=== PATIENT | female | born 1930 | race Caucasian/White ===

== ENCOUNTER 2018-12-07 06:02 | Day surgery (SDC) | payer OTHER ==
[~2018-12-07] VITALS: Ht 157.5 cm; Wt 63.9 kg
[2018-12-07] VITALS (37 sets, daily range): BP systolic 92–169; BP diastolic 53–92; PULSE 96–114; RESP 16–30; Ht 157.5 cm; Wt 63.9 kg
[2018-12-07] MEDS ORDERED: HEPARIN 1000 UNITS/ML 10 ML INJ ONE (06:58)
[2018-12-07] MEDS ORDERED: LIDOCAINE 1% (MDV) 20 ML INJ ONE (06:59)
[2018-12-07] MEDS ORDERED: IODIXANOL LOCM 100 ML BTL ONE (06:59)
[2018-12-07] MEDS ORDERED: MIDAZOLAM 1 MG/ML 2 ML INJ ONE (06:59)
[2018-12-07] MEDS ORDERED: HEPARIN 1000 UNITS/NS (A-LINE) 1,000 ML ONE (06:59)
[2018-12-07] MEDS ORDERED: FENTAnyl 50 MCG/ML VIAL ONE (06:59)
[2018-12-07] MEDS ORDERED: METO-448 PO (07:17)
[2018-12-07] MEDS ORDERED: CLOP75TA19 PO (07:17)
[2018-12-07] MEDS ORDERED: ASPI-817 PO (07:17)
[2018-12-07] MEDS ORDERED: PRAV80TA27 PO (07:17)
[2018-12-07] MEDS ORDERED: ALEN70TA5 PO (07:17)
[2018-12-07] MEDS ORDERED: PRAV20TA63 PO (07:17)
[2018-12-07] MEDS ORDERED: LISI2.5T59 PO (07:17)
[2018-12-07] MEDS ORDERED: ACET500C5 PO (07:17)
[2018-12-07] MEDS ORDERED: PANT40TA3 PO (07:17)
[2018-12-07] MEDS ORDERED: CHOL100062 PO (07:17)
--- NOTE | 2018-12-07 08:16 | SIPON ---
Date/Time of Note Date/Time of Note DATE: 12/07/18 TIME: 08:14 Operative Report Preoperative Diagnosis R foot non healing ulcer Postoperative Diagnosis same Operation/Procedure Performed aortogram, RLE runoff - patent aorta, ~25% R RENETTA stenosis, subtotal occlusion of the R METERS SUPERINTENDENT with patent multiple profunda branches, diffuse SFA narrowing with occlusion in mid thigh, patent but small pop reconstitutes at knee with PADMINI and peroneal runoff, RADAR REPAIRER is occluded and does not reconstitute Surgeon see signature line respiratory assistant none Anesthesia: moderate sedation, other Estimated blood loss: minimal Transfusion Required none Specimen none Grafts/Implants none Complications none REJI AGUSTIN MD December 07, 2018 08:16
--- NOTE | 2018-12-07 08:46 | OPR ---
DATE OF OPERATION: 12/07/2018 PREOPERATIVE DIAGNOSIS: Nonhealing ulcer between the right fourth and fifth toes with pain. POSTOPERATIVE DIAGNOSIS: Nonhealing ulcer between the right fourth and fifth toes with pain. PROCEDURE PERFORMED: Abdominal aortogram with right lower extremity runoff. SURGEON: Reji Allen MD ANESTHESIA: Local anesthesia. ESTIMATED BLOOD LOSS: Minimal. COMPLICATIONS: No intraprocedural complications. INDICATIONS: This is an 88-year-old diabetic, hypertensive woman with a long history of peripheral a rterial disease. She has had a nonhealing ulcer in the right foot between the fourth and fifth toes for the last 6 months or so. I had done an angiogram back about 6 months ago. At that time, her rig ht common femoral artery was completely occluded. I was able to angioplasty and laser through it, bu t on recent duplex it was found to have severe restenosis or subtotal occlusion. The ulcer had been improving, but then it basically stopped and started getting larger and she is having more pain, so I brought her in for an angiogram and possible intervention. PROCEDURE: The patient was brought to the labels molder, placed on the table in supine position. Left gr oin was prepped and draped in the usual sterile fashion. I began by infiltrating over the left commo n femoral artery using 10 mL of 1% Xylocaine. I then used ultrasound to identify the left common fem oral artery. I then entered the artery with a micropuncture needle under ultrasound guidance. An 0. 018 wire was inserted through the needle into the artery and the micropuncture sheath was advanced ov er the wire into the artery. I then advanced an 0.035 Bentson wire through the micropuncture sheath and up into the abdominal aorta, exchanged the micropuncture sheath for a 5-Gibraltarian sheath over the wi re. I then advanced a rim catheter into the infrarenal aorta and did an aortogram and then advanced the catheter up and over the bifurcation using Advantage wire for support. I advanced the catheter i nto the right common femoral artery. runoff down the right lower extremity. FINDINGS OF ANGIOGRAPHY: Infrarenal aorta was patent. The left common external and internal iliac a rteries were patent. The left common femoral, superficial, and profunda femoral arteries were all pa tent in the groin. On the right there is about a 25% stenosis in the proximal to mid right common il iac artery. The right internal iliac artery is occluded. The right external iliac artery was patent . The right common femoral artery is patent and brought in its mid portion, there is a subtotal occl usion just a string of flow through. Distal to that the profunda femoral artery is patent. There se emed to be multiple branches coming off of the profunda, coming off the distal common femoral, the duque perficial femoral artery is patent but severely diseased. It is almost like a string and is diffusel y severely narrowed and occludes in the mid-thigh. There is some reconstitution of the popliteal abo ve the knee. It is also very small and diseased. It crosses the knee and then below the knee there is 2-vessel runoff via anterior tibial and peroneal. Posterior tibial artery is occluded at its orig in. It does not reconstitute. The anterior tibial artery is patent down across the ankle and into t he foot. It is very small and it was diffusely diseased but it does fill the dorsalis pedis which is also a very small and diseased. Peroneal artery occludes at the ankles. In summary, there is severe diffuse disease throughout the right lower extremity with a subtotal occl usion of the right common femoral artery. It has been previously treated with angioplasty and had re stenosed fairly rapidly. I think that the best option at this point would be a common femoral endart erectomy rather than another percutaneous intervention. We will discuss it with her family members. In the meantime, we will continue wound care. She is going to go to the recovery room, having teresa ated the procedure well in stable condition. Dictated By: REJI SADLER/RAFFAELE Conf#: [id number] DID#: [id number] CC: Shea Barry;*EndCC*
[2018-12-07] MEDS ORDERED: SOD CHLORIDE 0.9% 1,000 ML IV SCH (09:30)
== END 2018-12-07 15:55 | disposition home or self-care (01) ==
LOC: SDS 06:02
PROVIDERS: ATTEND Surgery Vascular Surgery
DX: E11.51 Type 2 diabetes mellitus with diabetic peripheral angiopathy without gangrene (principal); I70.235 Atherosclerosis of native arteries of right leg with ulceration of other part of foot; L97.519 Non-pressure chronic ulcer of other part of right foot with unspecified severity; I10 Essential (primary) hypertension
CPT/HCPCS: 36246; 75630; 75710; 80053; 82962; 85025; 85610; 85730; C1769; C1887; C1894; J1644; J2250; J3010; Q9967

== ENCOUNTER 2018-12-31 00:35 | Inpatient (IN) | payer OTHER ==
[~2018-12-31] VITALS: Ht 157.5 cm; Wt 65.6 kg
[2018-12-31] VITALS (10 sets, daily range): BP systolic 105–175; BP diastolic 55–70; PULSE 78–100; RESP 18–20; Ht 157.5 cm; Wt 65.6 kg
[~2018-12-31 00:35] MED LIST: ACET500C5 PO; ALEN70TA5 PO; ASPI-817 PO; CHOL100062 PO; CLOP75TA19 PO; LISI2.5T59 PO; METO-448 PO; PANT40TA3 PO; PRAV20TA63 PO; PRAV80TA27 PO
[2018-12-31] MEDS ORDERED: PRAV20TA PO (05:48)
[2018-12-31] MEDS ORDERED: PANT40TA4 PO (05:48)
[2018-12-31] MEDS ORDERED: CLOP75TA27 PO (05:48)
[2018-12-31] MEDS ORDERED: [UNRECOGNIZED DRUG - OTHER] PO (05:48)
[2018-12-31] MEDS ORDERED: METO25TA4 PO (05:48)
[2018-12-31] MEDS ORDERED: ASPI-817 PO (05:48)
[2018-12-31] MEDS ORDERED: ALEN40TA2 PO (05:48)
[2018-12-31] MEDS ORDERED: SOD CHLORIDE 0.45% 1,000 ML IV SCH (07:12)
[2018-12-31] MEDS ORDERED: morphine 2 MG INJ IV PRN (07:30)
[2018-12-31] MEDS ORDERED: MAGNESIUM HYDROXIDE 30ML CUP PO PRN (07:30)
[2018-12-31] MEDS ORDERED: ACETAMINOPHEN 325 MG TAB PO PRN (07:30)
[2018-12-31] MEDS ORDERED: hydrALAzine 20 MG INJ IV PRN (07:30)
[2018-12-31] MEDS ORDERED: ACETAMINOPHEN 500 MG TAB PO PRN (07:30)
[2018-12-31] MEDS ORDERED: ALBUTEROL/IPRATROPIUM (NEB) 3 ML AMP HHN PRN (07:30)
[2018-12-31] MEDS ORDERED: NITROGLYCERIN (SL) 0.4 MG TAB SL PRN (07:30)
[2018-12-31] MEDS ORDERED: DOCUSATE SODIUM 100 MG CAP PO PRN (07:30)
[2018-12-31] MEDS ORDERED: LORAZEPAM 2 MG INJ IV PRN (07:30)
[2018-12-31] MEDS ORDERED: HYDROCODONE/APAP (5/325) TAB PO PRN (07:30)
[2018-12-31] MEDS ORDERED: NACL 0.9% 3 ML SYG IV SCH (07:30)
[2018-12-31] MEDS ORDERED: ONDANSETRON 4 MG INJ IV PRN (07:30)
[2018-12-31] MEDS: PANTOPRAZOLE (EC) 40 MG TAB PO SCH (08:29)
[2018-12-31] MEDS: CHOLECALCIFEROL 1,000 UNIT TAB PO SCH (08:29)
[2018-12-31] MEDS: METOPROLOL 25 MG TAB PO SCH ×2 (08:30→20:56)
[2018-12-31] MEDS: HEPARIN 5,000 UNIT/1 ML VIAL SC SCH ×2 (08:33→21:02)
[2018-12-31] MEDS ORDERED: VANCOMYCIN IV PER PHARMACY XX SCH (11:00)
[2018-12-31] MEDS ORDERED: VANCOMYCIN HCL 1.25 GM in SOD CHLORIDE 0.9% 250 ML IVPB ONE (12:30)
--- NOTE | 2018-12-31 13:49 | CONS ---
DATE OF ADMISSION: 12/31/2018 DATE OF CONSULTATION: 12/31/2018 TYPE OF CONSULTATION: Vascular. REFERRING PHYSICIAN: Nohemy Jessica MD REASON FOR CONSULTATION: Right foot ulcer. HISTORY OF PRESENT ILLNESS: This is an 88-year-old woman. She is well known to me. She has a long history of peripheral arterial disease. She is diabetic, hypertensive. She is obese. She has had a n ulcer between the right 4th and 5th toes. It started probably about 6 or 8 months ago. I did an a ngiogram at that time and I had initially seen her over [facility]. I did the angiogram and opened her right common femoral artery, which had been chronically occluded. The ulcer is getting b cristiano and actually pain went away and it almost closed. Then about 2 months ago, it started getting worse. We did an ultrasound that showed that the common femoral artery has re-stenosed. They luis e t her here to [facility]. A few weeks ago I did an angiogram and it showed that there was s ubtotal occlusion again of the right common femoral artery. I thought it would be better treated lui gically given that I treated it previously and it re-stenosed very quickly, so I was in the process o f scheduling her for right common femoral endarterectomy. She was having a lot of pain in the foot a nd it was more swollen and red. She went to [facility] yesterday. She was admitted t here and then transferred here to [facility] because of insurance reasons. She now has no p ain. The edema is gone. The ulcer is still there but there is no erythema. She certainly is really having any symptoms currently here. PAST MEDICAL HISTORY: Significant for diabetes, hypertension, atrial fibrillation, peripheral arteri al disease. She has a right foot ulcer and right common femoral artery subtotal occlusion. MEDICATIONS: Consist of: 1. Aspirin. 2. Plavix. 3. Zestril. 4. Protonix. 5. Lopressor. 6. Vancomycin. 7. Subcutaneous heparin. 8. Vitamin D. 9. Zofran. 10. Tylenol. 11. Morphine. 12. Ativan. 13. DuoNeb. 14. Hydralazine. 15. Nitroglycerin. 16. Milk of Magnesia. ALLERGIES: SHE HAS NO KNOWN DRUG ALLERGIES. SOCIAL HISTORY: She is a nonsmoker. She does not drink or use any illicit drugs. She lives with [facility] family. She is not in a detention facility. FAMILY HISTORY: Significant for diabetes. REVIEW OF SYSTEMS: She currently denies any pain. She has no chest pain or shortness of breath. No nausea, vomiting, diarrhea. No fever, no chills, no recent weight gain or weight loss. No pain in the foot at present. The edema and redness have gone down since. She was given some antibiotics at [place] and worthy antibiotics here. PHYSICAL EXAMINATION GENERAL: She is an elderly woman. She is moderately obese. VITAL SIGNS: She has been afebrile. Blood pressure is 126/64, heart rate 78, respiratory rate is 20 . She is 97% sat on room air. PERIPHERAL VASCULAR: She has 2+ radial, brachial, carotid pulses bilaterally. LUNGS: Clear. HEART: Regular rate and rhythm. ABDOMEN: Obese, soft, nontender. EXTREMITIES: She has 2+ femoral on the left. No femoral pulse on the right. There is no popliteal, DP or PT pulse in either foot and there is no edema in either leg. The right foot is a little s potato chip cooker machine ler than the left and has a little bit of cyanosis but this is chronic. It has been like this as shaji g as I have been seeing her. There is no erythema. She has got some chronic venous stasis changes. There is an ulcer between the 4th and 5th toes right in the web space. It goes fairly deep. There is no pus. I do not see any purulence. There is no erythema around it. It is not even particularly tender at present. LABORATORY VALUES: All basically normal. She got normal white count. DIAGNOSTIC DATA: She has not had any ultrasound of the lower extremities yet. IMPRESSION: Right foot ulcer between 4th and 5th toes. She has chronic ulcer that has been there fo r 6 or 8 months. She has severe peripheral arterial disease. I was in the process of scheduling her for right femoral endarterectomy as an outpatient after an angiogram done last month. It looks like she gets cellulitis around the ulcer and it is already significantly improved just with some brief d oses of antibiotics. She is going to need a femoral endarterectomy, so I think it is a good idea to get a assembler small products to see her for clearance. While she is here, Dr. Rosa is going to ask Dr. Roberta doherty to see her as well for podiatric care and wound care. I will see if I can get her scheduled for the surgery but probably would not be this week. I am completely booked up this week, so I think may be we will try and get her on the schedule for next week. She probably can go home in a day or 2 wit h some p.o. antibiotics to home over until we get her back for the surgery once it is schedule. Dictated By: REJI SADLER/RAFFAELE Conf#: [id number] DID#: [id number] CC: VICTORIANO SHARPE DO; NOHEMY JESSICA; JOSE ROSA MD; ELIESER TAMAYO DPM;*End*
[2018-12-31] MEDS: COLLAGENASE 5 GM (UD JAR) TOP SCH (19:54)
[2018-12-31] MEDS ORDERED: METOPROLOL 25 MG TAB PO SCH (21:00)
[2018-12-31] MEDS: ATORVASTATIN 40 MG TAB PO SCH (21:10)
[2019-01-01] VITALS (12 sets, daily range): BP systolic 86–157; BP diastolic 50–68; PULSE 69–92; RESP 18–20
[2019-01-01] MEDS ORDERED: CIPROFLOXACIN 500 MG TAB PO SCH (07:00)
--- NOTE | 2019-01-01 08:17 | CONS ---
DATE OF ADMISSION: 12/31/2018 DATE OF CONSULTATION: 12/31/2018 REASON FOR CONSULTATION: Osteomyelitis, right foot. HISTORY OF PRESENT ILLNESS: This is an 88-year-old female with chronic ulceration known to have sergio pheral arterial disease with prior intervention. The patient is currently being scheduled for a femo ral endarterectomy. The patient currently has a deep ulceration, has had MRI revealing bone marrow e messi in the fourth proximal phalanx, concerning for early osteomyelitis, moderate to advanced polyart icular arthrosis involving the tarsometatarsal joints and the first MPJ with hallux valgus deformity. PAST MEDICAL HISTORY: Diabetes type 2, hypertension, atrial fibrillation, peripheral arterial diseas e, right lower extremity diabetic foot ulceration, history of right common femoral subtotal occlusio n. MEDICATIONS: Include Vancomycin. ALLERGIES: NONE. SOCIAL HISTORY: Denies smoking, recreational drugs. Currently lives with family. FAMILY HISTORY: Positive for diabetes. REVIEW OF SYSTEMS: Occasional pain to right foot. PHYSICAL EXAMINATION: VITAL SIGNS: Temperature 97.9, pulse is 81, respiratory rate 18, blood pressure 123/58, pulse oximet ry is 95%. GENERAL: The patient awake, pleasant mood. Regular respiration. EXTREMITIES: The patient with brawny appearing skin. Pedal pulses are nonpalpable. There is ulcera tion at the lateral aspect of the fourth toe base with lesion that appears punched out and probes sruthi n to tendon. No erythema. No instability of the toe noted. The leg is warm, but palpable popliteal pulse is nonpalpable with a 2+ femoral pulse on the left, nonpalpable on the right. LABORATORIES: PT is 12.6, INR 0.93, PTT 27.9. Foot MRI reviewed, suspicious of early osteomyelitis to the proximal phalanx of the fourth toe. Arterial ultrasound is pending. ASSESSMENT: 1. Right foot diabetic foot ulceration with a concern for early osteomyelitis. 2. Peripheral arterial disease with subtotal occlusion of the right common femoral artery. 3. Cellulitis. PLAN: Obtain wound cultures, initiate on empiric antibiotics, will add Zosyn to current vancomycin. The patient would benefit from local wound care until revascularization. The patient is currently b eing scheduled for a femoral endarterectomy and to be scheduled pending OR availability, reviewed lab s and MRI. Discussed at length with patient and risk of chronic ulceration, will plan more aggressiv e wound care and debridements once revascularized. The patient has pending arterial ultrasounds. Nu rsing recommendations given. Recommend decubitus precautions. The patient at high risk given limite d mobility, also check nutritional status and recommend optimization of any deficiencies and tight gl ycemic control while in-house. Dictated By: ELIESER TEJADA/RAFFAELE Conf#: [id number] DID#: [id number] CC: NOHEMY JESSICA;*EndCC*
--- NOTE | 2019-01-01 08:30 | HP ---
Date/Time of Note Date/Time of Note DATE: 12/31/18 TIME: 08:29 Assessment/Plan VTE Prophylaxis Risk score (from Ns)>0 risk: 3 SCD applied (from Ns): Yes Pharmacological prophylaxis: heparin Lines/Catheters IV [facility] Type [facility] Peripheral IV Urinary Cath still in place: No Assessment/Plan Hospital Course Appears well no distress AOx3 RRR CTAB R foot with ulceration between 4-5th toes. Mild surroudnign erythema. No drainage. Very weak pulses A/P: 88 yo female with PAD presents with nonhealing ulceration of foot - Wound care - Dr Arriaza from podiatry consulted - MRI to confimr dx of osteomyelitis - IV abx for now PAD: - Surgical managmeent per Dr Allen - Continue DAPT and statin - BP control Result Diagram: 01/01/1928 01/01/19 0628 Results 24hrs Laboratory Tests Test 01/01/19 06:23 01/01/19 06:28 Albumin 3.4 Prealbumin 12.6 L White Blood Count 6.4 Red Blood Count 3.43 L Hemoglobin 9.6 L Hematocrit 31.5 L Mean Corpuscular Volume 91.8 Mean Corpuscular Hemoglobin 28.0 L Mean Corpuscular Hemoglobin Concent 30.5 L Red Cell Distribution Width 14.0 Platelet Count 240 Mean Platelet Volume 9.6 Immature Granulocytes % 0.200 Neutrophils % 53.9 Lymphocytes % 28.9 Monocytes % 11.5 H Eosinophils % 4.7 Basophils % 0.8 Nucleated Red Blood Cells % 0.0 Immature Granulocytes # 0.010 Neutrophils # 3.5 Lymphocytes # 1.9 Monocytes # 0.7 Eosinophils # 0.3 Basophils # 0.1 Nucleated Red Blood Cells # 0.0 Sodium Level 140 Potassium Level 5.5 H Chloride Level 109 Carbon Dioxide Level 26 Anion Gap 5 Blood Urea Nitrogen 31 H Creatinine 1.61 H Est Glomerular Filtrat Rate mL/min Glucose Level 107 Hemoglobin A1c 6.6 H Calcium Level 8.4 Phosphorus Level 4.3 Magnesium Level 1.8 Triglycerides Level 90 Cholesterol Level 119 LDL Cholesterol, Calculated 60 HDL Cholesterol 41 Cholesterol/HDL Ratio 2.9 Thyroid Stimulating Hormone (TSH) 0.493 HPI/ROS Admit Date/Time Admit Date/Time Dec 31, 2018 at 00:35 Hx of Present Illness RE-ENTERING THIS NOTE I ENTERED IT IN PREVIOUS PATIENT ENCOUNTER 88 yo female with severe PAD, recent angiogram showing subtotal occlusion of the right common femoral artery. It had been previously treated with angioplasty and had restenosed fairly rapidly. Common femoral endarterectomy had been planned as an outpatient by Dr Allen Came to ED because ulceration of R foot and pain has gotten worse XR suggested osteomyelitis at outside hospital No systemic symptoms ROS Constitutional: no complaints, improved Eyes: no complaints ENT: no complaints Respiratory: no complaints Cardiovascular: no complaints Gastrointestinal: no complaints Genitourinary: no complaints Musculoskeletal: no complaints Skin: no complaints Neurologic: no complaints Endocrine: no complaints Lymphatic: no complaints Psychological: no complaints, nl mood/affect Immunologic: no complaints PMH/Family/Social Past Medical History Medical History: diabetes Medications Current Medications IV Flush (NS 3 ml) 3 ml PER PROTOCOL IV ; Start 12/31/18 at 07:30 Ondansetron HCl (Zofran Inj) 4 mg Q6H PRN IV NAUSEA/VOMITING; Start 12/31/18 at 07:30 Acetaminophen (Tylenol Tab) 650 mg Q6H PRN PO .PAIN 1-3 OR TEMP; Start 12/31/18 at 07:30 Acetaminophen/ Hydrocodone Bitart ([place] (5/325)) 1 tab Q6H PRN PO .MOD PAIN 4- 6; Start 12/31/18 at 07:30 Morphine Sulfate (morphine) 2 mg Q4H PRN IV .SEVERE PAIN 7-10 Last administered on 12/31/18at 21:02; Admin Dose 2 MG; Start 12/31/18 at 07:30 Docusate Sodium (Colace) 100 mg Q12H PRN PO .CONSTIPATION; Start 12/31/18 at 07:30 Magnesium Hydroxide (Milk Of Mag) 30 ml DAILY PRN PO .CONSTIPATION; Start 12/31/18 at 07:30 Heparin Sodium (Porcine) (Heparin (5000 Units/1ml)) 5,000 unit Q12 SC Last administered on 12/31/18at 21:02; Admin Dose 5,000 UNIT; Start 12/31/18 at 09:00 Lorazepam (Ativan) 0.5 mg Q6H PRN IV ANXIETY; Start 12/31/18 at 07:30 Albuterol/ Ipratropium (Duoneb) 3 ml Q4H RESP THERAPY PRN HHN SHORTNESS OF BREATH; Start 12/31/18 at 07:30 Hydralazine HCl (Apresoline) 10 mg Q6H PRN IV ELEVATED BLOOD PRESSURE; Start 12/31/18 at 07:30 Nitroglycerin (Nitroglycerin (Sl Tab) 0.4 Mg) 1 tab Q5M PRN SL ANGINA; Start 12/31/18 at 07:30 Cholecalciferol (Vitamin D) 1,000 unit DAILY PO Last administered on 12/31/18at 08:29; Admin Dose 1,000 UNIT; Start 12/31/18 at 09:00 Metoprolol Tartrate (Lopressor) 25 mg BID PO Last administered on 12/31/18at 20:56; Admin Dose 25 MG; Start 12/31/18 at 09:00 Pantoprazole (Protonix Tab) 40 mg DAILY PO Last administered on 12/31/18at 08:29 ; Admin Dose 40 MG; Start 12/31/18 at 09:00 Vancomycin HCl (Vanco Iv Per Pharmacy) VANCOMYCIN PER PHARMACY PER PROTOCOL XX ; Start 12/31/18 at 11:00 Aspirin (Halfprin) 81 mg DAILY PO ; Start 01/01/19 at 09:00 Clopidogrel Bisulfate (plaVIX) 75 mg DAILY PO ; Start 01/01/19 at 09:00 Lisinopril (Zestril) 2.5 mg DAILY PO ; Start 01/01/19 at 09:00 Atorvastatin Calcium (Lipitor) 40 mg DAILY@21 PO Last administered on 12/31/18at 21:10; Admin Dose 40 MG; Start 12/31/18 at 21:00 Vancomycin HCl 250 ml @ 125 mls/hr Q48H IVPB ; Start 01/02/19 at 13:30 Collagenase (Santyl) 1 applic DAILY TOP Last administered on 12/31/18at 19:54; Admin Dose 1 APPLIC; Start 12/31/18 at 19:30 Ciprofloxacin (Cipro) 250 mg BID@06,18 PO ; Start 01/01/19 at 18:00 Coded Allergies: Penicillins (Verified Allergy, Unknown, rash, 12/06/18) Past Surgical History Past Surgical Hx: no surgical history Family History Significant Family History: no pertinent family hx Social History Alcohol Use: none Smoking Status: Never smoker Drug Use: none Exam/Review of Systems Vital Signs Vitals Vital Signs Date Temp Pulse Resp B/P (MAP) Pulse Ox O2 O2 Flow FiO2 Time Delivery Rate 01/01/19 82 08:28 01/01/19 98.2 20 104/52 98 Nasal 07:45 (69) Cannula 01/01/19 21 01:05 Intake and Output 12/31/18 12/31/18 01/01/19 1515:00 23:00 07:00 IntakeIntake Total 300 ml 300 ml BalanceBalance 300 ml 300 ml Exam Constitutional: alert, oriented, well developed Psych: no complaints, nl mood/affect Head: normocephalic, atraumatic Eyes: nl conjunctiva, EOMI, nl lids, nl sclera, PERRL ENMT: nl external ears & nose, nl lips & teeth, nl nasal mucosa & septum Neck: supple, non-tender Respiratory: clear to auscultation, normal air movement Cardiovascular: regular rate and rhythm, nl pulses Gastrointestinal: soft, nl liver, spleen, non-tender Musculoskeletal: nl extremities to inspection Extremities: normal pulses Neurological: MEDICAL RADIATION TECH II-XII intact, nl mental status, nl speech, nl strength Skin: nl turgor; No rash or lesions Lymph: nl lymph nodes JOSE CHI MD Jan 01, 2019 08:30
[2019-01-01] MEDS: PANTOPRAZOLE (EC) 40 MG TAB PO SCH (08:58)
[2019-01-01] MEDS: CHOLECALCIFEROL 1,000 UNIT TAB PO SCH (08:58)
[2019-01-01] MEDS: CLOPIDOGREL 75 MG TAB PO SCH (08:58)
[2019-01-01] MEDS: ASPIRIN (EC) 81 MG TAB PO SCH (08:58)
[2019-01-01] MEDS: LISINOPRIL 5 MG TAB PO SCH (08:59)
[2019-01-01] MEDS: METOPROLOL 25 MG TAB PO SCH ×2 (08:59→20:40)
[2019-01-01] MEDS: COLLAGENASE 5 GM (UD JAR) TOP SCH (08:59)
[2019-01-01] MEDS ORDERED: PANTOPRAZOLE (EC) 40 MG TAB PO SCH (09:00)
[2019-01-01] MEDS ORDERED: CLOPIDOGREL 75 MG TAB PO SCH (09:00)
[2019-01-01] MEDS ORDERED: ASPIRIN (EC) 81 MG TAB PO SCH (09:00)
[2019-01-01] MEDS: HEPARIN 5,000 UNIT/1 ML VIAL SC SCH ×2 (09:12→21:16)
--- NOTE | 2019-01-01 12:22 | PN ---
Date/Time of Note Date/Time of Note DATE: 01/01/19 TIME: 12:21 Assessment/Plan VTE Prophylaxis Risk score (from Ns)>0 risk: 4 SCD applied (from Ns): Yes Pharmacological prophylaxis: heparin Lines/Catheters IV Catheter Type (from Nrsg): Peripheral IV Urinary Cath still in place: No Assessment/Plan Hospital Course Appears well no distress AOx3 RRR CTAB R foot with ulceration between 4-5th toes. Mild surroudnign erythema. No drainage. Very weak pulses A/P: 88 yo female with PAD, CKD presents with nonhealing ulceration of foot - Wound care - Dr Arriaza from podiatry consulted - MRI to confimr dx of osteomyelitis - IV abx for now PAD: - Surgical managmeent per Dr Allen - Continue DAPT and statin - BP control CKD III: - stable Home tomorrow and follow up in clinic for femoral endarterectomy Result Diagram: 01/01/1928 01/01/1928 Results 24hrs Laboratory Tests Test 01/01/19 06:23 01/01/19 06:28 Albumin 3.4 Prealbumin 12.6 L White Blood Count 6.4 Red Blood Count 3.43 L Hemoglobin 9.6 L Hematocrit 31.5 L Mean Corpuscular Volume 91.8 Mean Corpuscular Hemoglobin 28.0 L Mean Corpuscular Hemoglobin Concent 30.5 L Red Cell Distribution Width 14.0 Platelet Count 240 Mean Platelet Volume 9.6 Immature Granulocytes % 0.200 Neutrophils % 53.9 Lymphocytes % 28.9 Monocytes % 11.5 H Eosinophils % 4.7 Basophils % 0.8 Nucleated Red Blood Cells % 0.0 Immature Granulocytes # 0.010 Neutrophils # 3.5 Lymphocytes # 1.9 Monocytes # 0.7 Eosinophils # 0.3 Basophils # 0.1 Nucleated Red Blood Cells # 0.0 Sodium Level 140 Potassium Level 5.5 H Chloride Level 109 Carbon Dioxide Level 26 Anion Gap 5 Blood Urea Nitrogen 31 H Creatinine 1.61 H Est Glomerular Filtrat Rate mL/min Glucose Level 107 Hemoglobin A1c 6.6 H Calcium Level 8.4 Phosphorus Level 4.3 Magnesium Level 1.8 Triglycerides Level 90 Cholesterol Level 119 LDL Cholesterol, Calculated 60 HDL Cholesterol 41 Cholesterol/HDL Ratio 2.9 Thyroid Stimulating Hormone (TSH) 0.493 Subjective 24 Hr Interval Summary Free Text/Dictation Patinet comfortable MRI suggests osteomyelitis Exam/Review of Systems Exam Vitals Vital Signs Date Temp Pulse Resp B/P (MAP) Pulse Ox O2 O2 Flow FiO2 Time Delivery Rate 01/01/19 98.5 85 18 107/51 96 Nasal 11:19 (69) Cannula 01/01/19 21 01:05 Intake and Output 12/31/18 12/31/18 01/01/19 1515:00 23:00 07:00 IntakeIntake Total 300 ml 300 ml BalanceBalance 300 ml 300 ml Constitutional: alert, oriented, well developed Psych: no complaints, nl mood/affect Head: normocephalic, atraumatic Eyes: nl conjunctiva, EOMI, nl lids, nl sclera, PERRL ENMT: nl external ears & nose, nl lips & teeth, nl nasal mucosa & septum Neck: supple, non-tender Respiratory: clear to auscultation, normal air movement Cardiovascular: regular rate and rhythm, nl pulses Gastrointestinal: soft, nl liver, spleen, non-tender Musculoskeletal: nl extremities to inspection, nl gait and stance Extremities: normal pulses 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, nl mental status, nl speech, nl strength Skin: nl turgor; No rash or lesions Lymph: nl lymph nodes Results Results 24hrs Laboratory Tests Test 01/01/19 06:23 01/01/19 06:28 Albumin 3.4 Prealbumin 12.6 L White Blood Count 6.4 Red Blood Count 3.43 L Hemoglobin 9.6 L Hematocrit 31.5 L Mean Corpuscular Volume 91.8 Mean Corpuscular Hemoglobin 28.0 L Mean Corpuscular Hemoglobin Concent 30.5 L Red Cell Distribution Width 14.0 Platelet Count 240 Mean Platelet Volume 9.6 Immature Granulocytes % 0.200 Neutrophils % 53.9 Lymphocytes % 28.9 Monocytes % 11.5 H Eosinophils % 4.7 Basophils % 0.8 Nucleated Red Blood Cells % 0.0 Immature Granulocytes # 0.010 Neutrophils # 3.5 Lymphocytes # 1.9 Monocytes # 0.7 Eosinophils # 0.3 Basophils # 0.1 Nucleated Red Blood Cells # 0.0 Sodium Level 140 Potassium Level 5.5 H Chloride Level 109 Carbon Dioxide Level 26 Anion Gap 5 Blood Urea Nitrogen 31 H Creatinine 1.61 H Est Glomerular Filtrat Rate mL/min Glucose Level 107 Hemoglobin A1c 6.6 H Calcium Level 8.4 Phosphorus Level 4.3 Magnesium Level 1.8 Triglycerides Level 90 Cholesterol Level 119 LDL Cholesterol, Calculated 60 HDL Cholesterol 41 Cholesterol/HDL Ratio 2.9 Thyroid Stimulating Hormone (TSH) 0.493 Medications Medication Current Medications IV Flush (NS 3 ml) 3 ml PER PROTOCOL IV ; Start 12/31/18 at 07:30 Ondansetron HCl (Zofran Inj) 4 mg Q6H PRN IV NAUSEA/VOMITING; Start 12/31/18 at 07:30 Acetaminophen (Tylenol Tab) 650 mg Q6H PRN PO .PAIN 1-3 OR TEMP; Start 12/31/18 at 07:30 Acetaminophen/ Hydrocodone Bitart ([place] (5/325)) 1 tab Q6H PRN PO .MOD PAIN 4- 6; Start 12/31/18 at 07:30 Morphine Sulfate (morphine) 2 mg Q4H PRN IV .SEVERE PAIN 7-10 Last administered on 12/31/18at 21:02; Admin Dose 2 MG; Start 12/31/18 at 07:30 Docusate Sodium (Colace) 100 mg Q12H PRN PO .CONSTIPATION; Start 12/31/18 at 07:30 Magnesium Hydroxide (Milk Of Mag) 30 ml DAILY PRN PO .CONSTIPATION; Start 12/22 at 07:30 Heparin Sodium (Porcine) (Heparin (5000 Units/1ml)) 5,000 unit Q12 SC Last administered on 01/01/19at 09:12; Admin Dose 5,000 UNIT; Start 12/31/18 at 09:00 Lorazepam (Ativan) 0.5 mg Q6H PRN IV ANXIETY; Start 12/31/18 at 07:30 Albuterol/ Ipratropium (Duoneb) 3 ml Q4H RESP THERAPY PRN HHN SHORTNESS OF BREATH; Start 12/31/18 at 07:30 Hydralazine HCl (Apresoline) 10 mg Q6H PRN IV ELEVATED BLOOD PRESSURE; Start 12/31/18 at 07:30 Nitroglycerin (Nitroglycerin (Sl Tab) 0.4 Mg) 1 tab Q5M PRN SL ANGINA; Start 12/31/18 at 07:30 Cholecalciferol (Vitamin D) 1,000 unit DAILY PO Last administered on 01/01/19at 08:58; Admin Dose 1,000 UNIT; Start 12/31/18 at 09:00 Metoprolol Tartrate (Lopressor) 25 mg BID PO Last administered on 01/01/19 08:59; Admin Dose 25 MG; Start 12/31/18 at 09:00 Pantoprazole (Protonix Tab) 40 mg DAILY PO Last administered on 01/01/19 08:58; Admin Dose 40 MG; Start 12/31/18 at 09:00 Vancomycin HCl (Vanco Iv Per Pharmacy) VANCOMYCIN PER PHARMACY PER PROTOCOL XX ; Start 12/31/18 at 11:00 Aspirin (Halfprin) 81 mg DAILY PO Last administered on 01/01/19 08:58; Admin Dose 81 MG; Start 01/01/19 at 09:00 Clopidogrel Bisulfate (plaVIX) 75 mg DAILY PO Last administered on 01/01/19 08:58; Admin Dose 75 MG; Start 01/01/19 at 09:00 Lisinopril (Zestril) 2.5 mg DAILY PO Last administered on 01/01/19 08:59; Admin Dose 2.5 MG; Start 01/01/19 at 09:00 Atorvastatin Calcium (Lipitor) 40 mg DAILY@21 PO Last administered on 12/31/18at 21:10; Admin Dose 40 MG; Start 12/31/18 at 21:00 Vancomycin HCl 250 ml @ 125 mls/hr Q48H IVPB ; Start 01/02/19 at 13:30 Collagenase (Santyl) 1 applic DAILY TOP Last administered on 01/01/19 08:59; Admin Dose 1 APPLIC; Start 12/31/18 at 19:30 Ciprofloxacin (Cipro) 250 mg BID@06,18 PO ; Start 01/01/19 at 18:00 Sodium Hypochlorite (Dakins Diluted (1/40)) 1 applic BID TP ; Start 01/01/19 at 12:00 JOSE CHI MD Jan 01, 2019 12:22
[2019-01-01] MEDS: DAKINS 0.0125%(1/40) 473 ML SOLUTION TP SCH ×2 (15:57→20:40)
[2019-01-01] MEDS: CIPROFLOXACIN 250 MG TAB PO SCH (17:38)
[2019-01-01] MEDS: ATORVASTATIN 40 MG TAB PO SCH (20:40)
[2019-01-01] MEDS ORDERED: ALBUTEROL 0.083% (NEB) 2.5 MG/3 ML AMP HHN STA (21:25)
[2019-01-01] MEDS ORDERED: SODIUM POLYSTYRENE 15 GM KIT (POWDER + SORBITOL) PO SCH (22:00)
[2019-01-02] VITALS: BP 145/56; PULSE 89; RESP 18
[2019-01-02 00:59] VITALS: PULSE 73
[2019-01-02 04:00] VITALS: BP 113/59; PULSE 78; RESP 18
[2019-01-02] MEDS: CIPROFLOXACIN 250 MG TAB PO SCH (06:09)
[2019-01-02 08:23] VITALS: BP 146/62; PULSE 90; RESP 18
[2019-01-02] MEDS: METOPROLOL 25 MG TAB PO SCH (08:58)
[2019-01-02] MEDS: ASPIRIN (EC) 81 MG TAB PO SCH (08:58)
[2019-01-02] MEDS: CLOPIDOGREL 75 MG TAB PO SCH (08:59)
[2019-01-02] MEDS: LISINOPRIL 5 MG TAB PO SCH (08:59)
[2019-01-02] MEDS: CHOLECALCIFEROL 1,000 UNIT TAB PO SCH (08:59)
[2019-01-02] MEDS: PANTOPRAZOLE (EC) 40 MG TAB PO SCH (08:59)
[2019-01-02] MEDS: DAKINS 0.0125%(1/40) 473 ML SOLUTION TP SCH ×2 (09:00→21:35)
[2019-01-02] MEDS: COLLAGENASE 5 GM (UD JAR) TOP SCH (09:00)
[2019-01-02] MEDS: HEPARIN 5,000 UNIT/1 ML VIAL SC SCH ×2 (09:05→21:32)
[2019-01-02] MEDS ORDERED: GLUCOSE GEL 15 GRAM TUBE PO PRN ×2 (11:00)
[2019-01-02] MEDS ORDERED: GLUCOSE GEL 15 GRAM TUBE BUCCAL PRN (11:00)
[2019-01-02] MEDS ORDERED: GLUCAGON 1 MG INJ IM PRN (11:00)
[2019-01-02] MEDS ORDERED: DEXTROSE 50% 50 ML SYRINGE IV PRN ×2 (11:00)
--- NOTE | 2019-01-02 11:36 | PN ---
Date/Time of Note Date/Time of Note DATE: 01/02/19 TIME: 10:16 Assessment/Plan VTE Prophylaxis Risk score (from Nsg)>0 risk: 3 SCD applied (from Nsg): Yes Pharmacological prophylaxis: heparin Lines/Catheters IV Catheter Type (from Nrsg): Saline Lock Urinary Cath still in place: No Assessment/Plan Hospital Course S: elderly female, no new issues O: Constitutional: alert, elderly Head: atraumatic, normocephalic Neck: non-tender, supple Respiratory: clear to auscultation Cardiovascular: irregularly irregular, systolic M ? 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 It had been previously treated with angioplasty and had restenosed fairly rapidly. Common femoral endarterectomy had been planned as an outpatient by Dr Allen Came to ED because ulceration of R foot and pain has gotten worse R foot DM ulcer with MRI concern for Osteo and surrounding cellulitis -Right foot ulcer between 4th and 5th toes. She has chronic ulcer that has been there for 6 or 8 months -wound cultures still pending -continues on vanco / zosyn / oral cipro -ID consult ? PAD s/p failed angiogram last month -needs femoral endarterectomy, possibly next week but can be scheduled o/p -vascular recommending cardio clearance -dual antiplatelet and statin Hyperkalemia : resolved CKD: stable DM2: a1C 6.6 HTN: titrate meds for optimal control DISPO: Awaiting wound cxs for final abx rec and the plan to dc for o/p f/u with Dr. Allen. Patient has been discharged from PT, cardio consult for clearance, supportive care. Result Diagram: 01/02/19 0810 01/02/19 0809 Results 24hrs Laboratory Tests Test 01/01/19 20:24 01/02/19 08:09 01/02/19 08:10 Sodium Level 137 140 Potassium Level 5.5 H 4.5 Chloride Level 107 108 Carbon Dioxide Level 22 24 Anion Gap 8 8 Blood Urea Nitrogen 39 H 31 H Creatinine 1.66 H 1.66 H Est Glomerular Filtrat Rate mL/min Glucose Level 233 #H 92 # Calcium Level 8.6 8.8 White Blood Count 7.2 Red Blood Count 3.49 L Hemoglobin 9.7 L Hematocrit 31.9 L Mean Corpuscular Volume 91.4 Mean Corpuscular Hemoglobin 27.8 L Mean Corpuscular Hemoglobin Concent 30.4 L Red Cell Distribution Width 13.9 Platelet Count 243 Mean Platelet Volume 9.8 Immature Granulocytes % 0.300 Neutrophils % 55.0 Lymphocytes % 28.7 Monocytes % 11.3 H Eosinophils % 4.0 Basophils % 0.7 Nucleated Red Blood Cells % 0.0 Immature Granulocytes # 0.020 Neutrophils # 4.0 Lymphocytes # 2.1 Monocytes # 0.8 Eosinophils # 0.3 Basophils # 0.1 Nucleated Red Blood Cells # 0.0 Exam/Review of Systems Exam Vitals Vital Signs Date Temp Pulse Resp B/P (MAP) Pulse Ox O2 O2 Flow FiO2 Time Delivery Rate 01/02/19 98.3 90 18 146/62 100 08:23 (90) 01/01/19 21 22:08 01/01/19 Nasal 11:19 Cannula Intake and Output 01/01/19 01/01/19 01/02/19 1515:00 23:00 07:00 IntakeIntake Total 250 ml 400 ml BalanceBalance 250 ml 400 ml Results Results 24hrs Laboratory Tests Test 01/01/19 20:24 01/02/19 08:09 01/02/19 08:10 Sodium Level 137 140 Potassium Level 5.5 H 4.5 Chloride Level 107 108 Carbon Dioxide Level 22 24 Anion Gap 8 8 Blood Urea Nitrogen 39 H 31 H Creatinine 1.66 H 1.66 H Est Glomerular Filtrat Rate mL/min Glucose Level 233 #H 92 # Calcium Level 8.6 8.8 White Blood Count 7.2 Red Blood Count 3.49 L Hemoglobin 9.7 L Hematocrit 31.9 L Mean Corpuscular Volume 91.4 Mean Corpuscular Hemoglobin 27.8 L Mean Corpuscular Hemoglobin Concent 30.4 L Red Cell Distribution Width 13.9 Platelet Count 243 Mean Platelet Volume 9.8 Immature Granulocytes % 0.300 Neutrophils % 55.0 Lymphocytes % 28.7 Monocytes % 11.3 H Eosinophils % 4.0 Basophils % 0.7 Nucleated Red Blood Cells % 0.0 Immature Granulocytes # 0.020 Neutrophils # 4.0 Lymphocytes # 2.1 Monocytes # 0.8 Eosinophils # 0.3 Basophils # 0.1 Nucleated Red Blood Cells # 0.0 Medications Medication Current Medications IV Flush (NS 3 ml) 3 ml PER PROTOCOL IV ; Start 12/31/18 at 07:30 Ondansetron HCl (Zofran Inj) 4 mg Q6H PRN IV NAUSEA/VOMITING; Start 12/31/18 at 07:30 Acetaminophen (Tylenol Tab) 650 mg Q6H PRN PO .PAIN 1-3 OR TEMP; Start 12/31/18 at 07:30 Acetaminophen/ Hydrocodone Bitart ([place] (5/325)) 1 tab Q6H PRN PO .MOD PAIN 4- 6; Start 12/31/18 at 07:30 Morphine Sulfate (morphine) 2 mg Q4H PRN IV .SEVERE PAIN 7-10 Last administered on 12/31/18at 21:02; Admin Dose 2 MG; Start 12/31/18 at 07:30 Docusate Sodium (Colace) 100 mg Q12H PRN PO .CONSTIPATION; Start 12/31/18 at 07:30 Magnesium Hydroxide (Milk Of Mag) 30 ml DAILY PRN PO .CONSTIPATION; Start 12/31/18 at 07:30 Heparin Sodium (Porcine) (Heparin (5000 Units/1ml)) 5,000 unit Q12 SC Last administered on 01/02/19at 09:05; Admin Dose 5,000 UNIT; Start 12/31/18 at 09:00 Lorazepam (Ativan) 0.5 mg Q6H PRN IV ANXIETY; Start 12/31/18 at 07:30 Albuterol/ Ipratropium (Duoneb) 3 ml Q4H RESP THERAPY PRN HHN SHORTNESS OF BREATH; Start 12/31/18 at 07:30 Hydralazine HCl (Apresoline) 10 mg Q6H PRN IV ELEVATED BLOOD PRESSURE; Start 12/31/18 at 07:30 Nitroglycerin (Nitroglycerin (Sl Tab) 0.4 Mg) 1 tab Q5M PRN SL ANGINA; Start 12/31/18 at 07:30 Cholecalciferol (Vitamin D) 1,000 unit DAILY PO Last administered on 01/02/19at 08:59; Admin Dose 1,000 UNIT; Start 12/31/18 at 09:00 Metoprolol Tartrate (Lopressor) 25 mg BID PO Last administered on 01/02/19at 08:58; Admin Dose 25 MG; Start 12/31/18 at 09:00 Pantoprazole (Protonix Tab) 40 mg DAILY PO Last administered on 01/02/19 08:59; Admin Dose 40 MG; Start 12/31/18 at 09:00 Vancomycin HCl (Vanco Iv Per Pharmacy) VANCOMYCIN PER PHARMACY PER PROTOCOL XX ; Start 12/31/18 at 11:00 Aspirin (Halfprin) 81 mg DAILY PO Last administered on 01/02/19 08:58; Admin Dose 81 MG; Start 01/01/19 at 09:00 Clopidogrel Bisulfate (plaVIX) 75 mg DAILY PO Last administered on 01/02/19 08:59; Admin Dose 75 MG; Start 01/01/19 at 09:00 Lisinopril (Zestril) 2.5 mg DAILY PO Last administered on 01/02/19 08:59; Admin Dose 2.5 MG; Start 01/01/19 at 09:00 Atorvastatin Calcium (Lipitor) 40 mg DAILY@21 PO Last administered on 01/01/19at 20:40; Admin Dose 40 MG; Start 12/31/18 at 21:00 Vancomycin HCl 250 ml @ 125 mls/hr Q48H IVPB ; Start 01/02/19 at 13:30 Collagenase (Santyl) 1 applic DAILY TOP Last administered on 01/02/19 09:00; Admin Dose 1 APPLIC; Start 12/31/18 at 19:30 Ciprofloxacin (Cipro) 250 mg BID@06,18 PO Last administered on 01/02/19 06:09; Admin Dose 250 MG; Start 01/01/19 at 18:00 Sodium Hypochlorite (Dakins Diluted ()) 1 applic BID TP Last administered on 01/02/19 09:00; Admin Dose 1 APPLIC; Start 01/01/19 at 12:00 MARGARITA ROJAS Jan 02, 2019 10:26
[2019-01-02] MEDS: INSULIN ASPART [NOVOLOG] 3 ML PEN SC SCH ×3 (11:40→21:33)
--- NOTE | 2019-01-02 12:03 | CONS ---
Assessment/Plan Assessment/Plan Hospital Course (Demo Recall) Preoperative cardiac risk stratification Peripheral arterial disease depending common femoral endarterectomy Critical limb ischemia with nonhealing ulcer Atrial fibrillation Preserved left ventricular ejection fraction Mild aortic valve stenosis Tricuspid and mitral valve regurgitation Patient plan for outpatient common femoral endarterectomy secondary to nonhealing ulcer with concern for osteomyelitis Echocardiogram preliminary with preserved left ventricular ejection fraction, there is mild aortic valve stenosis, mild to moderate tricuspid valve regurgitation and mild mitral valve regurgitation. ECG with no significant ischemic abnormalities. She tells me she is able to ambulate approximately 50 feet with a walker and what limits her is pain in her lower extremity Given her multiple risk factors, she is at an intermediate risk for any untoward cardiac events for her procedure. The benefits likely outweigh the risks. Would continue beta-juan as long as heart rate and blood pressure permits. Of note, patient with atrial fibrillation with multiple risk factors for thromb oembolic events and should be on anticoagulation. She is currently on dual antiplatelet therapy likely secondary to peripheral arterial disease. I would recommend switching her over to Eliquis 2.5 mg p.o. twice daily given her age and creatinine. With that said, patient is planned for vascular surgery within the next week, would recommend starting anticoagulation post procedure unless her surgery will be delayed. Once anticoagulation is started, would stop dual antiplatelet therapy given increased risk of bleeding Consultation Date/Type/Reason Admit Date/Time Dec 31, 2018 at 00:35 Type of Consult Cardiology Reason for Consultation Preoperative cardiac risk stratification Date/Time of Note DATE: 01/02/19 TIME: 11:54 Hx of Present Illness This is an 88-year-old female with past medical history of atrial fibrillation, peripheral arterial disease who presents with pain from a nonhealing ulcer. Patient with known history of peripheral arterial disease and is planned for outpatient common femoral endarterectomy. Because of worsening pain in her foot, patient admitted for further management and care. She denies any chest pain, shortness of breath or palpitations at rest or with activity. She is able to ambulate approximately 50 feet with a walker without chest pain or shortness of breath, limiting factor is pain in her extremity. She denies any cardiac h istory. 12 point review of systems was performed with all pertinent positives and negatives mentioned above and all else is negative Past Medical History Atrial fibrillation Medical History: high cholesterol, hypertension Home Meds Reported Medications Aspirin* (Aspirin* EC) 81 Mg Tablet., 81 MG PO DAILY, TAB 12/31/18 Alendronate Sodium* (Alendronate Sodium*) 40 Mg Tablet, 70 MG PO weekly, #30 TAB 12/31/18 Clopidogrel Bisulfate (Clopidogrel) 75 Mg Tablet, 75 MG PO DAILY, #30 TAB 12/31/18 Pantoprazole* (Pantoprazole*) 40 Mg Tablet.dr, 40 MG PO DAILY, TAB 12/31/18 Pravastatin Sodium (Pravachol) 20 Mg Tablet, 20 MG PO DAILY, TAB 12/31/18 Metoprolol Tartrate* (Lopressor*) 25 Mg Tablet, 25 MG PO BID, #60 TAB 12/31/18 [[facility] nonaspirin ] No Conflict Check, 500 MG PO Q6 PRN for PAIN 12/31/18 Alendronate Sodium* (Fosamax*) 70 Mg Tablet, 70 MG PO Q7D, #4 TAB 12/07/18 Pravastatin Sodium* (Pravastatin Sodium*) 80 Mg Tablet, 80 MG PO HS, TAB 12/07/18 Pravastatin Sodium* (Pravastatin Sodium*) 20 Mg Tablet, 20 MG PO DAILY, TAB 12/07/18 Pantoprazole* (Protonix*) 40 Mg Tablet.dr, 40 MG PO DAILY, TAB 12/07/18 Clopidogrel Bisulfate* (Clopidogrel Bisulfate*) 75 Mg Tablet, 75 MG PO DAILY, #30 TAB 12/07/18 Acetaminophen* (Tylophen*) 500 Mg Capsule, 1000 MG PO Q6H PRN for PAIN LEVEL 1- 3, TAB 12/07/18 Aspirin* (Aspirin* EC) 81 Mg Tablet.dr, 81 MG PO DAILY, TAB 12/07/18 Cholecalciferol* (Vitamin D3*) 1,000 Unit Tablet, 1000 UNIT PO DAILY, TAB 12/07/18 Metoprolol Tartrate* (Lopressor*) 25 Mg Tab, 25 MG PO BID, #60 TAB 12/07/18 Lisinopril* (Lisinopril*) 2.5 Mg Tablet, 2.5 MG PO DAILY, #30 TAB 12/07/18 Medications Current Medications IV Flush (NS 3 ml) 3 ml PER PROTOCOL IV ; Start 12/31/18 at 07:30 Ondansetron HCl (Zofran Inj) 4 mg Q6H PRN IV NAUSEA/VOMITING; Start 12/31/18 at 07:30 Acetaminophen (Tylenol Tab) 650 mg Q6H PRN PO .PAIN 1-3 OR TEMP; Start 12/31/18 at 07:30 Acetaminophen/ Hydrocodone Bitart (Corona (5/325)) 1 tab Q6H PRN PO .MOD PAIN 4- 6; Start 12/31/18 at 07:30 Morphine Sulfate (morphine) 2 mg Q4H PRN IV .SEVERE PAIN 7-10 Last administered on 12/31/18at 21:02; Admin Dose 2 MG; Start 12/31/18 at 07:30 Docusate Sodium (Colace) 100 mg Q12H PRN PO .CONSTIPATION; Start 12/31/18 at 07:30 Magnesium Hydroxide (Milk Of Mag) 30 ml DAILY PRN PO .CONSTIPATION; Start 12/31/18 at 07:30 Heparin Sodium (Porcine) (Heparin (5000 Units/1ml)) 5,000 unit Q12 SC Last administered on 01/02/19at 09:05; Admin Dose 5,000 UNIT; Start 12/31/18 at 09:00 Lorazepam (Ativan) 0.5 mg Q6H PRN IV ANXIETY; Start 12/31/18 at 07:30 Albuterol/ Ipratropium (Duoneb) 3 ml Q4H RESP THERAPY PRN HHN SHORTNESS OF BREATH; Start 12/31/18 at 07:30 Hydralazine HCl (Apresoline) 10 mg Q6H PRN IV ELEVATED BLOOD PRESSURE; Start 12/31/18 at 07:30 Nitroglycerin (Nitroglycerin (Sl Tab) 0.4 Mg) 1 tab Q5M PRN SL ANGINA; Start 12/31/18 at 07:30 Cholecalciferol (Vitamin D) 1,000 unit DAILY PO Last administered on 01/02/19at 08:59; Admin Dose 1,000 UNIT; Start 12/31/18 at 09:00 Pantoprazole (Protonix Tab) 40 mg DAILY PO Last administered on 01/02/19at 08:59; Admin Dose 40 MG; Start 12/31/18 at 09:00 Vancomycin HCl (Vanco Iv Per Pharmacy) VANCOMYCIN PER PHARMACY PER PROTOCOL XX ; Start 12/31/18 at 11:00 Aspirin (Halfprin) 81 mg DAILY PO Last administered on 01/02/19at 08:58; Admin Dose 81 MG; Start 01/01/19 at 09:00 Clopidogrel Bisulfate (plaVIX) 75 mg DAILY PO Last administered on 01/02/19at 08:59; Admin Dose 75 MG; Start 01/01/19 at 09:00 Lisinopril (Zestril) 2.5 mg DAILY PO Last administered on 01/02/19at 08:59; Admin Dose 2.5 MG; Start 01/01/19 at 09:00 Atorvastatin Calcium (Lipitor) 40 mg DAILY@21 PO Last administered on 01/01/19at 20:40; Admin Dose 40 MG; Start 12/31/18 at 21:00 Vancomycin HCl 250 ml @ 125 mls/hr Q48H IVPB ; Start 01/02/19 at 13:30 Collagenase (Santyl) 1 applic DAILY TOP Last administered on 01/02/19at 09:00; Admin Dose 1 APPLIC; Start 12/31/18 at 19:30 Ciprofloxacin (Cipro) 250 mg BID@06,18 PO Last administered on 01/02/19at 06:09; Admin Dose 250 MG; Start 01/01/19 at 18:00 Sodium Hypochlorite (Dakins Diluted (1/40)) 1 applic BID TP Last administered on 01/02/19at 09:00; Admin Dose 1 APPLIC; Start 01/01/19 at 12:00 Diagnostic Test (Pha) (Accu-Chek) 1 ea 02 XX ; Start 01/03/19 at 02:00 Insulin Aspart (Novolog Insulin Pen) NOVOLOG *MILD* ALGORITHM WITH MEALS BEDTIME SC ; Start 01/02/19 at 11:40 Metoprolol Tartrate (Lopressor) 50 mg BID PO ; Start 01/02/19 at 21:00 Lactobacillus Acidophilus/ Rhamnosus (Culturelle) 1 cap BID PO ; Start 01/02/19 at 10:30 Miscellaneous Information 1 ea NOTE XX ; Start 01/02/19 at 11:00 Glucose (Glutose) 15 gm Q15M PRN PO DECREASED GLUCOSE; Start 01/02/19 at 11:00 Glucose (Glutose) 22.5 gm Q15M PRN PO DECREASED GLUCOSE; Start 01/02/19 at 11:00 Dextrose (D50w Syringe) 25 ml Q15M PRN IV DECREASED GLUCOSE; Start 01/02/19 at 11:00 Dextrose (D50w Syringe) 50 ml Q15M PRN IV DECREASED GLUCOSE; Start 01/02/19 at 11:00 Glucagon (Glucagen) 1 mg Q15M PRN IM DECREASED GLUCOSE; Start 01/02/19 at 11:00 Glucose (Glutose) 15 gm Q15M PRN BUCCAL DECREASED GLUCOSE; Start 01/02/19 at 11:00 Allergies: Coded Allergies: Penicillins (Verified Allergy, Unknown, rash, 12/06/18) Past Surgical History Past Surgical Hx: other (Endovascular procedures) Social History Alcohol Use: none Smoking Status: Never smoker Drug Use: none Exam/Review of Systems Vital Signs Vitals Vital Signs Date Temp Pulse Resp B/P (MAP) Pulse Ox O2 O2 Flow FiO2 Time Delivery Rate 01/02/19 98.3 90 18 146/62 100 08:23 (90) 01/01/19 21 22:08 01/01/19 Nasal 11:19 Cannula Intake and Output 01/01/19 01/01/19 01/02/19 1515:00 23:00 07:00 IntakeIntake Total 250 ml 400 ml BalanceBalance 250 ml 400 ml Exam Constitutional: alert, oriented (No apparent distress) Head: normocephalic Respiratory: clear to auscultation, normal air movement Cardiovascular: irregular rhythm, systolic murmur, other (S1-S2 heard) Gastrointestinal: soft, non-tender, bowel sounds Extremities: other (No significant edema) Labs Result Diagram: 01/02/19 0810 01/02/19 0809 Results 24hrs Laboratory Tests Test 01/01/19 20:24 01/02/19 08:09 01/02/19 08:10 Sodium Level 137 140 Potassium Level 5.5 H 4.5 Chloride Level 107 108 Carbon Dioxide Level 22 24 Anion Gap 8 8 Blood Urea Nitrogen 39 H 31 H Creatinine 1.66 H 1.66 H Est Glomerular Filtrat Rate mL/min Glucose Level 233 #H 92 # Calcium Level 8.6 8.8 White Blood Count 7.2 Red Blood Count 3.49 L Hemoglobin 9.7 L Hematocrit 31.9 L Mean Corpuscular Volume 91.4 Mean Corpuscular Hemoglobin 27.8 L Mean Corpuscular Hemoglobin Concent 30.4 L Red Cell Distribution Width 13.9 Platelet Count 243 Mean Platelet Volume 9.8 Immature Granulocytes % 0.300 Neutrophils % 55.0 Lymphocytes % 28.7 Monocytes % 11.3 H Eosinophils % 4.0 Basophils % 0.7 Nucleated Red Blood Cells % 0.0 Immature Granulocytes # 0.020 Neutrophils # 4.0 Lymphocytes # 2.1 Monocytes # 0.8 Eosinophils # 0.3 Basophils # 0.1 Nucleated Red Blood Cells # 0.0 Imaging Imaging ECG atrial fibrillation at 71 bpm, QRS 84 ms, nonspecific ST abnormalities Medications Medications Current Medications IV Flush (NS 3 ml) 3 ml PER PROTOCOL IV ; Start 12/31/18 at 07:30 Ondansetron HCl (Zofran Inj) 4 mg Q6H PRN IV NAUSEA/VOMITING; Start 12/31/18 at 07:30 Acetaminophen (Tylenol Tab) 650 mg Q6H PRN PO .PAIN 1-3 OR TEMP; Start 12/31/18 at 07:30 Acetaminophen/ Hydrocodone Bitart (Corona (5/325)) 1 tab Q6H PRN PO .MOD PAIN 4- 6; Start 12/31/18 at 07:30 Morphine Sulfate (morphine) 2 mg Q4H PRN IV .SEVERE PAIN 7-10 Last administered on 12/31/18at 21:02; Admin Dose 2 MG; Start 12/31/18 at 07:30 Docusate Sodium (Colace) 100 mg Q12H PRN PO .CONSTIPATION; Start 12/31/18 at 07:30 Magnesium Hydroxide (Milk Of Mag) 30 ml DAILY PRN PO .CONSTIPATION; Start 12/31/18 at 07:30 Heparin Sodium (Porcine) (Heparin (5000 Units/1ml)) 5,000 unit Q12 SC Last administered on 01/02/19at 09:05; Admin Dose 5,000 UNIT; Start 12/31/18 at 09:00 Lorazepam (Ativan) 0.5 mg Q6H PRN IV ANXIETY; Start 12/31/18 at 07:30 Albuterol/ Ipratropium (Duoneb) 3 ml Q4H RESP THERAPY PRN HHN SHORTNESS OF BREATH; Start 12/31/18 at 07:30 Hydralazine HCl (Apresoline) 10 mg Q6H PRN IV ELEVATED BLOOD PRESSURE; Start 12/31/18 at 07:30 Nitroglycerin (Nitroglycerin (Sl Tab) 0.4 Mg) 1 tab Q5M PRN SL ANGINA; Start 12/31/18 at 07:30 Cholecalciferol (Vitamin D) 1,000 unit DAILY PO Last administered on 01/02/19 08:59; Admin Dose 1,000 UNIT; Start 12/31/18 at 09:00 Pantoprazole (Protonix Tab) 40 mg DAILY PO Last administered on 01/02/19 08:59; Admin Dose 40 MG; Start 12/31/18 at 09:00 Vancomycin HCl (Vanco Iv Per Pharmacy) VANCOMYCIN PER PHARMACY PER PROTOCOL XX ; Start 12/31/18 at 11:00 Aspirin (Halfprin) 81 mg DAILY PO Last administered on 01/02/19 08:58; Admin Dose 81 MG; Start 01/01/19 at 09:00 Clopidogrel Bisulfate (plaVIX) 75 mg DAILY PO Last administered on 01/02/19 08:59; Admin Dose 75 MG; Start 01/01/19 at 09:00 Lisinopril (Zestril) 2.5 mg DAILY PO Last administered on 01/02/19 08:59; A dmin Dose 2.5 MG; Start 01/01/19 at 09:00 Atorvastatin Calcium (Lipitor) 40 mg DAILY@21 PO Last administered on 01/01/19at 20:40; Admin Dose 40 MG; Start 12/31/18 at 21:00 Vancomycin HCl 250 ml @ 125 mls/hr Q48H IVPB ; Start 01/02/19 at 13:30 Collagenase (Santyl) 1 applic DAILY TOP Last administered on 01/02/19at 09:00; Admin Dose 1 APPLIC; Start 12/31/18 at 19:30 Ciprofloxacin (Cipro) 250 mg BID@06,18 PO Last administered on 01/02/19at 06:09; Admin Dose 250 MG; Start 01/01/19 at 18:00 Sodium Hypochlorite (Dakins Diluted (40)) 1 applic BID TP Last administered on 01/02/19 09:00; Admin Dose 1 APPLIC; Start 01/01/19 at 12:00 Diagnostic Test (Pha) (Accu-Chek) 1 02 XX ; Start 01/03/19 at 02:00 Insulin Aspart (Novolog Insulin Pen) NOVOLOG *MILD* ALGORITHM WITH MEALS BEDTIME SC ; Start 01/02/19 at 11:40 Metoprolol Tartrate (Lopressor) 50 mg BID PO ; Start 01/02/19 at 21:00 Lactobacillus Acidophilus/ Rhamnosus (Culturelle) 1 cap BID PO ; Start 01/02/19 at 10:30 Miscellaneous Information 1 ea NOTE XX ; Start 01/02/19 at 11:00 Glucose (Glutose) 15 gm Q15M PRN PO DECREASED GLUCOSE; Start 01/02/19 at 11:00 Glucose (Glutose) 22.5 gm Q15M PRN PO DECREASED GLUCOSE; Start 01/02/19 at 1 1:00 Dextrose (D50w Syringe) 25 ml Q15M PRN IV DECREASED GLUCOSE; Start 01/02/19 at 11:00 Dextrose (D50w Syringe) 50 ml Q15M PRN IV DECREASED GLUCOSE; Start 01/02/19 at 11:00 Glucagon (Glucagen) 1 mg Q15M PRN IM DECREASED GLUCOSE; Start 01/02/19 at 11:00 Glucose (Glutose) 15 gm Q15M PRN BUCCAL DECREASED GLUCOSE; Start 01/02/19 at 11:00 Omer Burrows DO Jan 02, 2019 12:03
--- NOTE | 2019-01-02 12:22 | QN ---
Documentation Comment No pain in the foot. No other c/o. AFVSS R foot ulcer unchanged, no erythema or drainage, no tenderness or sings of ongoing infection - for R femoral endarterectomy once I can get her scheduled - likely next week - OK to d/c home with wound care and PO antibiotics from my standpoint REJI AGUSTIN MD Jan 02, 2019 12:22
--- NOTE | 2019-01-02 12:27 | RADRPT ---
Echocardiogram Report Patient Name: ISRA ROMEROPatient ID: [id number] : 1930 (88y 5m)Study Date: 01/02/2019 11:23:10 AM Gender: FAccession #: [id number] Tech: Sandor Tidwell [facility] Location: [facility] Ref.Physician: OMER SHARPE Height(Cm): BSA: Weight(Kg): Quality: AdequateOrder Physician: OMER SHARPE Account #: Report amended on 2019-01-02 at 12:28 PM: Added/Modified: Conclusions: [ADDED] Left Atrium Findings: There is moderate enlargement of left atrium. [ADDED] Right Atrium Findings: The right atrium is normal in size. [ADDED] Mitral Valve Findings: Mild mitral valve regurgitation. [ADDED] Aortic Valve Findings: Mild aortic stenosis. Mild aortic valve regurgitation. [ADDED] Tricuspid Valve Findings: The estimated Peak RVSP is 42 mmHg. There is mild to moderate tricuspid regurgitation. [ADDED] Pericardium Findings: Normal pericardium with no significant pericardial effusion. Electronically Signed by: Omer Sharpe 2019-01-02 12:28:12 PDT End of Addendum Procedures: Echocardiographic Report: Transthoracic echocardiogram with complete 2D, M-Mode, and doppler examination. Indications: Pre-op. Measurements: 2D/M Mode Doppler Measurement Value Normal Range Measurement Value Normal Range LVIDd 2D 3.3 [ 3.8 - 5.2 ] cm SHARYN Vmax 1.4 [ 2.0 - 4.0 ] cm2 LVIDs 2D 2.0 [ 2.2 - 3.5 ] cm SHARYN VTI 1.3 [ 2.0 - 4.0 ] cm2 LVPWd 2D 1.1 [ 0.6 - 0.9 ] cm AV Mean Aldo 2.0 [ 70.0 - 90.0 ] cm/sec IVSd 2D 1.5 [ 0.6 - 0.9 ] cm AV Mean PG 17.0 [ 2.0 - 4.0 ] mmHg IVS/LVPW 2D 1.4 ratio AV Peak Aldo 2.6 [ 100.0 - 170.0 ] cm/sec AoR Diam 2D 2.6 [ 2.3 - 3.1 ] cm AV Peak PG 27.0 [ 2.0 - 9.0 ] mmHg LA/Ao 2D 2 ratio AV VTI 61.5 cm LA Dimen 2D 4.8 [ 2.7 - 3.8 ] cm LVOT Mean Aldo 0.8 [ 60.0 - 80.0 ] cm/sec LVOT Area 3.1 cm2 LVOT Mean PG 3.0 [ 1.0 - 3.0 ] mmHg LVOT Peak Aldo 1.1 [ 70.0 - 110.0 ] cm/sec LVOT Peak PG 5.0 [ 2.0 - 6.0 ] mmHg LVOT VTI 26.1 [ 20.0 - 30.0 ] cm MV E Peak Aldo 1.0 [ 60.0 - 130.0 ] cm/sec MV Decel Time 106 [ 104 - 258 ] msec Lat E` Aldo 0.1 [ 10.0 - 15.0 ] cm/sec TR Peak Aldo 3.1 [ 100.0 - 280.0 ] cm/sec TR Peak PG 39.0 mmHg RVSP 42.0 [ 10.0 - 36.0 ] mmHg RA Pressure 3.0 mmHg Findings: Left Ventricle: Normal left ventricular systolic function. Normal left ventricular cavity size. Sigmoid septum. Ejection fraction is visually estimated at 65 %. Abnormal Diastolic Function. Right Ventricle: Normal right ventricular size. Normal right ventricular systolic function. Left Atrium: There is moderate enlargement of left atrium. Right Atrium: The right atrium is normal in size. Mitral Valve: Normal appearance of the mitral valve. Mild mitral valve regurgitation. Aortic Valve: Mild aortic stenosis. Mean PG 17.00 mmHg. Aortic cusps appear mildly calcified. Mild aortic valve regurgitation. Tricuspid Valve: Normal appearance of the tricuspid valve. The estimated Peak RVSP is 42 mmHg. There is mild to moderate tricuspid regurgitation. Pulmonic Valve: Normal pulmonic valve appearance. Pericardium: Normal pericardium with no significant pericardial effusion. Aorta: Normal aortic root. IVC: Normal size and normal respiratory collapse consistent with normal right atrial pressure. Conclusions: Normal left ventricular systolic function. Normal left ventricular cavity size. Sigmoid septum. Ejection fraction is visually estimated at 65 %. Abnormal Diastolic Function. Normal right ventricular size. Normal right ventricular systolic function. There is moderate enlargement of left atrium. The right atrium is normal in size. Mild mitral valve regurgitation. Mild aortic stenosis. Mild aortic valve regurgitation. The estimated Peak RVSP is 42 mmHg. There is mild to moderate tricuspid regurgitation. Normal pericardium with no significant pericardial effusion. Electronically Signed By: Omer Sharpe 2019-01-02 12:28:07 PDT
--- NOTE | 2019-01-02 12:30 | RADRPT ---
Vent Rate: 71 bpm RR Interval: 829 msec CO Interval: [id number] msec QRS Duration: 84 msec QT Interval: 421 msec QTC Interval: 462 msec P-R-T [place]: [id number] - 20 - 172 degrees Atrial fibrillation Nonspecific T abnormalities, lateral leads...T <-0.10mV, I aVL V5 V6 Electronically Signed By: Omer Burrows
[2019-01-02] MEDS: LACTOBACILLUS RHAMNOSUS CAP PO SCH ×2 (12:50→21:27)
[2019-01-02] MEDS: VANCOMYCIN 1 GM 250 ML IVPB SCH (12:53)
--- NOTE | 2019-01-02 13:35 | CONS ---
Consultation Date/Type/Reason Admit Date/Time Dec 31, 2018 at 00:35 Date/Time of Note DATE: 01/02/19 TIME: 13:35 Past Medical History Medical History: diabetes Home Meds Reported Medications Aspirin* (Aspirin* EC) 81 Mg Tablet.dr, 81 MG PO DAILY, TAB 12/31/18 Alendronate Sodium* (Alendronate Sodium*) 40 Mg Tablet, 70 MG PO weekly, #30 TAB 12/31/18 Clopidogrel Bisulfate (Clopidogrel) 75 Mg Tablet, 75 MG PO DAILY, #30 TAB 12/31/18 Pantoprazole* (Pantoprazole*) 40 Mg Tablet.dr, 40 MG PO DAILY, TAB 12/31/18 Pravastatin Sodium (Pravachol) 20 Mg Tablet, 20 MG PO DAILY, TAB 12/31/18 Metoprolol Tartrate* (Lopressor*) 25 Mg Tablet, 25 MG PO BID, #60 TAB 12/31/18 [cvs nonaspirin ] No Conflict Check, 500 MG PO Q6 PRN for PAIN 12/31/18 Alendronate Sodium* (Fosamax*) 70 Mg Tablet, 70 MG PO Q7D, #4 TAB 12/07/18 Pravastatin Sodium* (Pravastatin Sodium*) 80 Mg Tablet, 80 MG PO HS, TAB 12/07/18 Pravastatin Sodium* (Pravastatin Sodium*) 20 Mg Tablet, 20 MG PO DAILY, TAB 12/07/18 Pantoprazole* (Protonix*) 40 Mg Tablet.dr, 40 MG PO DAILY, TAB 12/07/18 Clopidogrel Bisulfate* (Clopidogrel Bisulfate*) 75 Mg Tablet, 75 MG PO DAILY, #30 TAB 12/07/18 Acetaminophen* (Tylophen*) 500 Mg Capsule, 1000 MG PO Q6H PRN for PAIN LEVEL 1- 3, TAB 12/07/18 Aspirin* (Aspirin* EC) 81 Mg Tablet.dr, 81 MG PO DAILY, TAB 12/07/18 Cholecalciferol* (Vitamin D3*) 1,000 Unit Tablet, 1000 UNIT PO DAILY, TAB 12/07/18 Metoprolol Tartrate* (Lopressor*) 25 Mg Tab, 25 MG PO BID, #60 TAB 12/07/18 Lisinopril* (Lisinopril*) 2.5 Mg Tablet, 2.5 MG PO DAILY, #30 TAB 12/07/18 Medications Current Medications IV Flush (NS 3 ml) 3 ml PER PROTOCOL IV ; Start 12/31/18 at 07:30 Ondansetron HCl (Zofran Inj) 4 mg Q6H PRN IV NAUSEA/VOMITING; Start 12/31/18 at 07:30 Acetaminophen (Tylenol Tab) 650 mg Q6H PRN PO .PAIN 1-3 OR TEMP; Start 12/31/18 at 07:30 Acetaminophen/ Hydrocodone Bitart ([place] (5/325)) 1 tab Q6H PRN PO .MOD PAIN 4- 6; Start 12/31/18 at 07:30 Morphine Sulfate (morphine) 2 mg Q4H PRN IV .SEVERE PAIN 7-10 Last administered on 12/31/18at 21:02; Admin Dose 2 MG; Start 12/31/18 at 07:30 Docusate Sodium (Colace) 100 mg Q12H PRN PO .CONSTIPATION; Start 12/31/18 at 07:30 Magnesium Hydroxide (Milk Of Mag) 30 ml DAILY PRN PO .CONSTIPATION; Start 12/31/18 at 07:30 Heparin Sodium (Porcine) (Heparin (5000 Units/1ml)) 5,000 unit Q12 SC Last administered on 01/02/19at 09:05; Admin Dose 5,000 UNIT; Start 12/31/18 at 09:00 Lorazepam (Ativan) 0.5 mg Q6H PRN IV ANXIETY; Start 12/31/18 at 07:30 Albuterol/ Ipratropium (Duoneb) 3 ml Q4H RESP THERAPY PRN HHN SHORTNESS OF BREATH; Start 12/31/18 at 07:30 Hydralazine HCl (Apresoline) 10 mg Q6H PRN IV ELEVATED BLOOD PRESSURE; Start 12/31/18 at 07:30 Nitroglycerin (Nitroglycerin (Sl Tab) 0.4 Mg) 1 tab Q5M PRN SL ANGINA; Start 12/31/18 at 07:30 Cholecalciferol (Vitamin D) 1,000 unit DAILY PO Last administered on 01/02/19at 08:59; Admin Dose 1,000 UNIT; Start 12/31/18 at 09:00 Pantoprazole (Protonix Tab) 40 mg DAILY PO Last administered on 01/02/19at 08:59; Admin Dose 40 MG; Start 12/31/18 at 09:00 Vancomycin HCl (Vanco Iv Per Pharmacy) VANCOMYCIN PER PHARMACY PER PROTOCOL XX ; Start 12/31/18 at 11:00 Aspirin (Halfprin) 81 mg DAILY PO Last administered on 01/02/19at 08:58; Admin Dose 81 MG; Start 01/01/19 at 09:00 Clopidogrel Bisulfate (plaVIX) 75 mg DAILY PO Last administered on 01/02/19 08:59; Admin Dose 75 MG; Start 01/01/19 at 09:00 Lisinopril (Zestril) 2.5 mg DAILY PO Last administered on 01/02/19 08:59; Admin Dose 2.5 MG; Start 01/01/19 at 09:00 Atorvastatin Calcium (Lipitor) 40 mg DAILY@21 PO Last administered on 01/01/19at 20:40; Admin Dose 40 MG; Start 12/31/18 at 21:00 Vancomycin HCl 250 ml @ 125 mls/hr Q48H IVPB Last administered on 01/02/19 12:53; Admin Dose 125 MLS/HR; Start 01/02/19 at 13:30 Collagenase (Santyl) 1 applic DAILY TOP Last administered on 01/02/19 09:00; Admin Dose 1 APPLIC; Start 12/31/18 at 19:30 Ciprofloxacin (Cipro) 250 mg BID@06,18 PO Last administered on 01/02/19 06:09; Admin Dose 250 MG; Start 01/01/19 at 18:00 Sodium Hypochlorite (Dakins Diluted (1/40)) 1 applic BID TP Last administered on 01/02/19 09:00; Admin Dose 1 APPLIC; Start 01/01/19 at 12:00 Diagnostic Test (Pha) (Accu-Chek) 1 ea 02 XX ; Start 01/03/19 at 02:00 Insulin Aspart (Novolog Insulin Pen) NOVOLOG *MILD* ALGORITHM WITH MEALS BEDTIME SC ; Start 01/02/19 at 11:40 Metoprolol Tartrate (Lopressor) 50 mg BID PO ; Start 01/02/19 at 21:00 Lactobacillus Acidophilus/ Rhamnosus (Culturelle) 1 cap BID PO Last administered on 01/02/19at 12:50; Admin Dose 1 CAP; Start 01/02/19 at 10:30 Miscellaneous Information 1 ea NOTE XX ; Start 01/02/19 at 11:00 Glucose (Glutose) 15 gm Q15M PRN PO DECREASED GLUCOSE; Start 01/02/19 at 11:00 Glucose (Glutose) 22.5 gm Q15M PRN PO DECREASED GLUCOSE; Start 01/02/19 at 11:00 Dextrose (D50w Syringe) 25 ml Q15M PRN IV DECREASED GLUCOSE; Start 01/02/19 at 11:00 Dextrose (D50w Syringe) 50 ml Q15M PRN IV DECREASED GLUCOSE; Start 01/02/19 at 11:00 Glucagon (Glucagen) 1 mg Q15M PRN IM DECREASED GLUCOSE; Start 01/02/19 at 11:00 Glucose (Glutose) 15 gm Q15M PRN BUCCAL DECREASED GLUCOSE; Start 01/02/19 at 11:00 Allergies: Coded Allergies: Penicillins (Verified Allergy, Unknown, rash, 12/06/18) Past Surgical History Past Surgical Hx: other (Endovascular procedures) Social History Alcohol Use: none Smoking Status: Never smoker Drug Use: none Exam/Review of Systems Exam Vitals Vital Signs Date Temp Pulse Resp B/P (MAP) Pulse Ox O2 O2 Flow FiO2 Time Delivery Rate 01/02/19 98.3 90 18 146/62 100 08:23 (90) 01/01/19 21 22:08 01/01/19 Nasal 11:19 Cannula Intake and Output 01/01/19 01/01/19 01/02/19 1515:00 23:00 07:00 IntakeIntake Total 250 ml 400 ml BalanceBalance 250 ml 400 ml Results Result Diagram: 01/02/19 0810 01/02/19 0809 Results 24hrs Laboratory Tests Test 01/01/19 20:24 01/02/19 08:09 01/02/19 08:10 01/02/19 12:51 Sodium Level 137 140 Potassium Level 5.5 H 4.5 Chloride Level 107 108 Carbon Dioxide Level 22 24 Anion Gap 8 8 Blood Urea Nitrogen 39 H 31 H Creatinine 1.66 H 1.66 H Est Glomerular Filtrat Rate mL/min Glucose Level 233 #H 92 # Calcium Level 8.6 8.8 White Blood Count 7.2 Red Blood Count 3.49 L Hemoglobin 9.7 L Hematocrit 31.9 L Mean Corpuscular 91.4 Volume Mean Corpuscular 27.8 L Hemoglobin Mean Corpuscular 30.4 L Hemoglobin Concent Red Cell 13.9 Distribution Width Platelet Count 243 Mean Platelet Volume 9.8 Immature 0.300 Granulocytes % Neutrophils % 55.0 Lymphocytes % 28.7 Monocytes % 11.3 H Eosinophils % 4.0 Basophils % 0.7 Nucleated Red Blood 0.0 Cells % Immature 0.020 Granulocytes # Neutrophils # 4.0 Lymphocytes # 2.1 Monocytes # 0.8 Eosinophils # 0.3 Basophils # 0.1 Nucleated Red Blood 0.0 Cells # Bedside Glucose 96 Medications Medication Current Medications IV Flush (NS 3 ml) 3 ml PER PROTOCOL IV ; Start 12/31/18 at 07:30 Ondansetron HCl (Zofran Inj) 4 mg Q6H PRN IV NAUSEA/VOMITING; Start 12/31/18 at 07:30 Acetaminophen (Tylenol Tab) 650 mg Q6H PRN PO .PAIN 1-3 OR TEMP; Start 12/31/18 at 07:30 Acetaminophen/ Hydrocodone Bitart ([place] (5/325)) 1 tab Q6H PRN PO .MOD PAIN 4- 6; Start 12/31/18 at 07:30 Morphine Sulfate (morphine) 2 mg Q4H PRN IV .SEVERE PAIN 7-10 Last administered on 12/31/18at 21:02; Admin Dose 2 MG; Start 12/31/18 at 07:30 Docusate Sodium (Colace) 100 mg Q12H PRN PO .CONSTIPATION; Start 12/31/18 at 07:30 Magnesium Hydroxide (Milk Of Mag) 30 ml DAILY PRN PO .CONSTIPATION; Start 12/31/18 at 07:30 Heparin Sodium (Porcine) (Heparin (5000 Units/1ml)) 5,000 unit Q12 SC Last administered on 01/02/19at 09:05; Admin Dose 5,000 UNIT; Start 12/31/18 at 09:00 Lorazepam (Ativan) 0.5 mg Q6H PRN IV ANXIETY; Start 12/31/18 at 07:30 Albuterol/ Ipratropium (Duoneb) 3 ml Q4H RESP THERAPY PRN HHN SHORTNESS OF OBED ATH; Start 12/31/18 at 07:30 Hydralazine HCl (Apresoline) 10 mg Q6H PRN IV ELEVATED BLOOD PRESSURE; Start 12/31/18 at 07:30 Nitroglycerin (Nitroglycerin (Sl Tab) 0.4 Mg) 1 tab Q5M PRN SL ANGINA; Start 12/31/18 at 07:30 Cholecalciferol (Vitamin D) 1,000 unit DAILY PO Last administered on 01/02/19 08:59; Admin Dose 1,000 UNIT; Start 12/31/18 at 09:00 Pantoprazole (Protonix Tab) 40 mg DAILY PO Last administered on 01/02/19 08:59; Admin Dose 40 MG; Start 12/31/18 at 09:00 Vancomycin HCl (Vanco Iv Per Pharmacy) VANCOMYCIN PER PHARMACY PER PROTOCOL XX ; Start 12/31/18 at 11:00 Aspirin (Halfprin) 81 mg DAILY PO Last administered on 01/02/19 08:58; Admin Dose 81 MG; Start 01/01/19 at 09:00 Clopidogrel Bisulfate (plaVIX) 75 mg DAILY PO Last administered on 01/02/19 08:59; Admin Dose 75 MG; Start 01/01/19 at 09:00 Lisinopril (Zestril) 2.5 mg DAILY PO Last administered on 01/02/19 08:59; Admin Dose 2.5 MG; Start 01/01/19 at 09:00 Atorvastatin Calcium (Lipitor) 40 mg DAILY@21 PO Last administered on 01/01/19 20:40; Admin Dose 40 MG; Start 12/31/18 at 21:00 Vancomycin HCl 250 ml @ 125 mls/hr Q48H IVPB Last administered on 01/02/19 12:53; Admin Dose 125 MLS/HR; Start 01/02/19 at 13:30 Collagenase (Santyl) 1 applic DAILY TOP Last administered on 01/02/19 09:00; Admin Dose 1 APPLIC; Start 12/31/18 at 19:30 Ciprofloxacin (Cipro) 250 mg BID@06,18 PO Last administered on 01/02/19 06:09; Admin Dose 250 MG; Start 01/01/19 at 18:00 Sodium Hypochlorite (Dakins Diluted (40)) 1 applic BID TP Last administered on 01/02/19 09:00; Admin Dose 1 APPLIC; Start 01/01/19 at 12:00 Diagnostic Test (Pha) (Accu-Chek) 1 ea 02 XX ; Start 01/03/19 at 02:00 Insulin Aspart (Novolog Insulin Pen) NOVOLOG *MILD* ALGORITHM WITH MEALS BEDTIME SC ; Start 01/02/19 at 11:40 Metoprolol Tartrate (Lopressor) 50 mg BID PO ; Start 01/02/19 at 21:00 Lactobacillus Acidophilus/ Rhamnosus (Culturelle) 1 cap BID PO Last administered on 01/02/19at 12:50; Admin Dose 1 CAP; Start 01/02/19 at 10:30 Miscellaneous Information 1 ea NOTE XX ; Start 01/02/19 at 11:00 Glucose (Glutose) 15 gm Q15M PRN PO DECREASED GLUCOSE; Start 01/02/19 at 11:00 Glucose (Glutose) 22.5 gm Q15M PRN PO DECREASED GLUCOSE; Start 01/02/19 at 11:00 Dextrose (D50w Syringe) 25 ml Q15M PRN IV DECREASED GLUCOSE; Start 01/02/19 at 11:00 Dextrose (D50w Syringe) 50 ml Q15M PRN IV DECREASED GLUCOSE; Start 01/02/19 at 11:00 Glucagon (Glucagen) 1 mg Q15M PRN IM DECREASED GLUCOSE; Start 01/02/19 at 11:00 Glucose (Glutose) 15 gm Q15M PRN BUCCAL DECREASED GLUCOSE; Start 01/02/19 at 11:00 GIANNI RANGEL MD Jan 02, 2019 13:35
--- NOTE | 2019-01-02 13:47 | CONS ---
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 severe PAD 3. Hx of revascs in past 4. DM R: cont. vanco merrem; ertapenem as outpatient outpatient id f/u picc line await final wound cx bcxs ordered ordered esr and hgalc for am will continue to follow closely with you. ty . Consultation Date/Type/Reason Admit Date/Time Dec 31, 2018 at 00:35 Date of Consultation: Jan 02, 2019 Type of Consult ID Reason for Consultation ABX RECS; FOOT INFECTION Requesting Provider: MARGARITA ROJAS Date/Time of Note DATE: 01/02/19 TIME: 13:38 Hx of Present Illness 88 yo female with severe PAD, Common femoral endarterectomy planned, s/p revascularizations in the past, admitted for progressive worsening wound changes of right foot. Apparently an outpatient xray suggested OM. MRI suggested "Mild bone marrow edema in the fourth toe proximal phalanx which could represent early osteomyelitis or nonspecific stress reaction". Wound cx shows diptheroids only thus far. Patient has been on Vanco. She has pcn allergy Past Medical History Medical History: diabetes Home Meds Reported Medications Aspirin* (Aspirin* EC) 81 Mg Tablet.dr, 81 MG PO DAILY, TAB 12/31/18 Alendronate Sodium* (Alendronate Sodium*) 40 Mg Tablet, 70 MG PO weekly, #30 TAB 12/31/18 Clopidogrel Bisulfate (Clopidogrel) 75 Mg Tablet, 75 MG PO DAILY, #30 TAB 12/31/18 Pantoprazole* (Pantoprazole*) 40 Mg Tablet.dr, 40 MG PO DAILY, TAB 12/31/18 Pravastatin Sodium (Pravachol) 20 Mg Tablet, 20 MG PO DAILY, TAB 12/31/18 Metoprolol Tartrate* (Lopressor*) 25 Mg Tablet, 25 MG PO BID, #60 TAB 12/31/18 [cvs nonaspirin ] No Conflict Check, 500 MG PO Q6 PRN for PAIN 12/31/18 Alendronate Sodium* (Fosamax*) 70 Mg Tablet, 70 MG PO Q7D, #4 TAB 12/07/18 Pravastatin Sodium* (Pravastatin Sodium*) 80 Mg Tablet, 80 MG PO HS, TAB 12/07/18 Pravastatin Sodium* (Pravastatin Sodium*) 20 Mg Tablet, 20 MG PO DAILY, TAB 12/07/18 Pantoprazole* (Protonix*) 40 Mg Tablet.dr, 40 MG PO DAILY, TAB 12/07/18 Clopidogrel Bisulfate* (Clopidogrel Bisulfate*) 75 Mg Tablet, 75 MG PO DAILY, #30 TAB 12/07/18 Acetaminophen* (Tylophen*) 500 Mg Capsule, 1000 MG PO Q6H PRN for PAIN LEVEL 1- 3, TAB 12/07/18 Aspirin* (Aspirin* EC) 81 Mg Tablet.dr, 81 MG PO DAILY, TAB 12/07/18 Cholecalciferol* (Vitamin D3*) 1,000 Unit Tablet, 1000 UNIT PO DAILY, TAB 12/07/18 Metoprolol Tartrate* (Lopressor*) 25 Mg Tab, 25 MG PO BID, #60 TAB 12/07/18 Lisinopril* (Lisinopril*) 2.5 Mg Tablet, 2.5 MG PO DAILY, #30 TAB 12/07/18 Medications Current Medications IV Flush (NS 3 ml) 3 ml PER PROTOCOL IV ; Start 12/31/18 at 07:30 Ondansetron HCl (Zofran Inj) 4 mg Q6H PRN IV NAUSEA/VOMITING; Start 12/31/18 at 07:30 Acetaminophen (Tylenol Tab) 650 mg Q6H PRN PO .PAIN 1-3 OR TEMP; Start 12/31/18 at 07:30 Acetaminophen/ Hydrocodone Bitart ([place] (5/325)) 1 tab Q6H PRN PO .MOD PAIN 4- 6; Start 12/31/18 at 07:30 Morphine Sulfate (morphine) 2 mg Q4H PRN IV .SEVERE PAIN 7-10 Last administered on 12/31/18at 21:02; Admin Dose 2 MG; Start 12/31/18 at 07:30 Docusate Sodium (Colace) 100 mg Q12H PRN PO .CONSTIPATION; Start 12/31/18 at 07:30 Magnesium Hydroxide (Milk Of Mag) 30 ml DAILY PRN PO .CONSTIPATION; Start 12/31/18 at 07:30 Heparin Sodium (Porcine) (Heparin (5000 Units/1ml)) 5,000 unit Q12 SC Last administered on 01/02/19at 09:05; Admin Dose 5,000 UNIT; Start 12/31/18 at 09:00 Lorazepam (Ativan) 0.5 mg Q6H PRN IV ANXIETY; Start 12/31/18 at 07:30 Albuterol/ Ipratropium (Duoneb) 3 ml Q4H RESP THERAPY PRN HHN SHORTNESS OF BREATH; Start 12/31/18 at 07:30 Hydralazine HCl (Apresoline) 10 mg Q6H PRN IV ELEVATED BLOOD PRESSURE; Start 12/31/18 at 07:30 Nitroglycerin (Nitroglycerin (Sl Tab) 0.4 Mg) 1 tab Q5M PRN SL ANGINA; Start 12/31/18 at 07:30 Cholecalciferol (Vitamin D) 1,000 unit DAILY PO Last administered on 01/02/19 08:59; Admin Dose 1,000 UNIT; Start 12/31/18 at 09:00 Pantoprazole (Protonix Tab) 40 mg DAILY PO Last administered on 01/02/19 08:59; Admin Dose 40 MG; Start 12/31/18 at 09:00 Vancomycin HCl (Vanco Iv Per Pharmacy) VANCOMYCIN PER PHARMACY PER PROTOCOL XX ; Start 12/31/18 at 11:00 Aspirin (Halfprin) 81 mg DAILY PO Last administered on 01/02/19 08:58; Admin Dose 81 MG; Start 01/01/19 at 09:00 Clopidogrel Bisulfate (plaVIX) 75 mg DAILY PO Last administered on 01/02/19 08:59; Admin Dose 75 MG; Start 01/01/19 at 09:00 Lisinopril (Zestril) 2.5 mg DAILY PO Last administered on 01/02/19 08:59; Admin Dose 2.5 MG; Start 01/01/19 at 09:00 Atorvastatin Calcium (Lipitor) 40 mg DAILY@21 PO Last administered on 01/01/19 20:40; Admin Dose 40 MG; Start 12/31/18 at 21:00 Vancomycin HCl 250 ml @ 125 mls/hr Q48H IVPB Last administered on 01/02/19 12:53; Admin Dose 125 MLS/HR; Start 01/02/19 at 13:30 Collagenase (Santyl) 1 applic DAILY TOP Last administered on 01/02/19 09:00; Admin Dose 1 APPLIC; Start 12/31/18 at 19:30 Ciprofloxacin (Cipro) 250 mg BID@06,18 PO Last administered on 01/02/19at 06:09; Admin Dose 250 MG; Start 01/01/19 at 18:00 Sodium Hypochlorite (Dakins Diluted ()) 1 applic BID TP Last administered on 01/02/19at 09:00; Admin Dose 1 APPLIC; Start 01/01/19 at 12:00 Diagnostic Test (Pha) (Accu-Chek) 1 ea 02 XX ; Start 01/03/19 at 02:00 Insulin Aspart (Novolog Insulin Pen) NOVOLOG *MILD* ALGORITHM WITH MEALS B EDTIME SC ; Start 01/02/19 at 11:40 Metoprolol Tartrate (Lopressor) 50 mg BID PO ; Start 01/02/19 at 21:00 Lactobacillus Acidophilus/ Rhamnosus (Culturelle) 1 cap BID PO Last administered on 01/02/19at 12:50; Admin Dose 1 CAP; Start 01/02/19 at 10:30 Miscellaneous Information 1 ea NOTE XX ; Start 01/02/19 at 11:00 Glucose (Glutose) 15 gm Q15M PRN PO DECREASED GLUCOSE; Start 01/02/19 at 11:00 Glucose (Glutose) 22.5 gm Q15M PRN PO DECREASED GLUCOSE; Start 01/02/19 at 11:00 Dextrose (D50w Syringe) 25 ml Q15M PRN IV DECREASED GLUCOSE; Start 01/02/19 at 11:00 Dextrose (D50w Syringe) 50 ml Q15M PRN IV DECREASED GLUCOSE; Start 01/02/19 at 11:00 Glucagon (Glucagen) 1 mg Q15M PRN IM DECREASED GLUCOSE; Start 01/02/19 at 11:00 Glucose (Glutose) 15 gm Q15M PRN BUCCAL DECREASED GLUCOSE; Start 01/02/19 at 11:00 Allergies: Coded Allergies: Penicillins (Verified Allergy, Unknown, rash, 12/06/18) Past Surgical History Past Surgical Hx: other (Endovascular procedures) Social History Alcohol Use: none Smoking Status: Never smoker Drug Use: none Exam/Review of Systems Exam Vitals Vital Signs Date Temp Pulse Resp B/P (MAP) Pulse Ox O2 O2 Flow FiO2 Time Delivery Rate 01/02/19 98.3 90 18 146/62 100 08:23 (90) 01/01/19 21 22:08 01/01/19 Nasal 11:19 Cannula Intake and Output 6/11/19 6/11/19 6/12/19 1515:00 23:00 07:00 IntakeIntake Total 250 ml 400 ml BalanceBalance 250 ml 400 ml Constitutional: alert, oriented, well developed Psych: no complaints, nl mood/affect Eyes: nl conjunctiva, EOMI, nl lids, nl sclera, PERRL ENMT: nl external ears & nose, nl lips & teeth, nl nasal mucosa & septum Respiratory: clear to auscultation, normal air movement Cardiovascular: regular rate and rhythm, nl pulses Musculoskeletal: nl extremities to inspection, nl gait and stance 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 PICTS REVIEWED) Results Result Diagram: 01/02/19 0810 01/02/19 0809 Results 24hrs Laboratory Tests Test 01/01/19 20:24 01/02/19 08:09 01/02/19 08:10 01/02/19 12:51 Sodium Level 137 140 Potassium Level 5.5 H 4.5 Chloride Level 107 108 Carbon Dioxide Level 22 24 Anion Gap 8 8 Blood Urea Nitrogen 39 H 31 H Creatinine 1.66 H 1.66 H Est Glomerular Filtrat Rate mL/min Glucose Level 233 #H 92 # Calcium Level 8.6 8.8 White Blood Count 7.2 Red Blood Count 3.49 L Hemoglobin 9.7 L Hematocrit 31.9 L Mean Corpuscular 91.4 Volume Mean Corpuscular 27.8 L Hemoglobin Mean Corpuscular 30.4 L Hemoglobin Concent Red Cell 13.9 Distribution Width Platelet Count 243 Mean Platelet Volume 9.8 Immature 0.300 Granulocytes % Neutrophils % 55.0 Lymphocytes % 28.7 Monocytes % 11.3 H Eosinophils % 4.0 Basophils % 0.7 Nucleated Red Blood 0.0 Cells % Immature 0.020 Granulocytes # Neutrophils # 4.0 Lymphocytes # 2.1 Monocytes # 0.8 Eosinophils # 0.3 Basophils # 0.1 Nucleated Red Blood 0.0 Cells # Bedside Glucose 96 Medications Medication Current Medications IV Flush (NS 3 ml) 3 ml PER PROTOCOL IV ; Start 12/31/18 at 07:30 Ondansetron HCl (Zofran Inj) 4 mg Q6H PRN IV NAUSEA/VOMITING; Start 12/31/18 at 07:30 Acetaminophen (Tylenol Tab) 650 mg Q6H PRN PO .PAIN 1-3 OR TEMP; Start 12/31/18 at 07:30 Acetaminophen/ Hydrocodone Bitart ([place] (5/325)) 1 tab Q6H PRN PO .MOD PAIN 4- 6; Start 12/31/18 at 07:30 Morphine Sulfate (morphine) 2 mg Q4H PRN IV .SEVERE PAIN 7-10 Last administered on 12/31/18at 21:02; Admin Dose 2 MG; Start 12/31/18 at 07:30 Docusate Sodium (Colace) 100 mg Q12H PRN PO .CONSTIPATION; Start 12/31/18 at 07:30 Magnesium Hydroxide (Milk Of Mag) 30 ml DAILY PRN PO .CONSTIPATION; Start 12/31/18 at 07:30 Heparin Sodium (Porcine) (Heparin (5000 Units/1ml)) 5,000 unit Q12 SC Last administered on 01/02/19at 09:05; Admin Dose 5,000 UNIT; Start 12/31/18 at 09:00 Lorazepam (Ativan) 0.5 mg Q6H PRN IV ANXIETY; Start 12/31/18 at 07:30 Albuterol/ Ipratropium (Duoneb) 3 ml Q4H RESP THERAPY PRN HHN SHORTNESS OF BREATH; Start 12/31/18 at 07:30 Hydralazine HCl (Apresoline) 10 mg Q6H PRN IV ELEVATED BLOOD PRESSURE; Start 12/31/18 at 07:30 Nitroglycerin (Nitroglycerin (Sl Tab) 0.4 Mg) 1 tab Q5M PRN SL ANGINA; Start 12/31/18 at 07:30 Cholecalciferol (Vitamin D) 1,000 unit DAILY PO Last administered on 01/02/19at 08:59; Admin Dose 1,000 UNIT; Start 12/31/18 at 09:00 Pantoprazole (Protonix Tab) 40 mg DAILY PO Last administered on 01/02/19at 08:59; Admin Dose 40 MG; Start 12/31/18 at 09:00 Vancomycin HCl (Vanco Iv Per Pharmacy) VANCOMYCIN PER PHARMACY PER PROTOCOL XX ; Start 12/31/18 at 11:00 Aspirin (Halfprin) 81 mg DAILY PO Last administered on 01/02/19at 08:58; Admin Dose 81 MG; Start 01/01/19 at 09:00 Clopidogrel Bisulfate (plaVIX) 75 mg DAILY PO Last administered on 01/02/19 08:59; Admin Dose 75 MG; Start 01/01/19 at 09:00 Lisinopril (Zestril) 2.5 mg DAILY PO Last administered on 01/02/19 08:59; Admin Dose 2.5 MG; Start 01/01/19 at 09:00 Atorvastatin Calcium (Lipitor) 40 mg DAILY@21 PO Last administered on 01/01/19at 20:40; Admin Dose 40 MG; Start 12/31/18 at 21:00 Vancomycin HCl 250 ml @ 125 mls/hr Q48H IVPB Last administered on 01/02/19 12:53; Admin Dose 125 MLS/HR; Start 01/02/19 at 13:30 Collagenase (Santyl) 1 applic DAILY TOP Last administered on 01/02/19 09:00; Admin Dose 1 APPLIC; Start 12/31/18 at 19:30 Ciprofloxacin (Cipro) 250 mg BID@06,18 PO Last administered on 01/02/19at 06:09; Admin Dose 250 MG; Start 01/01/19 at 18:00 Sodium Hypochlorite (Dakins Diluted (40)) 1 applic BID TP Last administered on 01/02/19at 09:00; Admin Dose 1 APPLIC; Start 01/01/19 at 12:00 Diagnostic Test (Pha) (Accu-Chek) 1 ea 02 XX ; Start 01/03/19 at 02:00 Insulin Aspart (Novolog Insulin Pen) NOVOLOG *MILD* ALGORITHM WITH MEALS BEDTIME SC ; Start 01/02/19 at 11:40 Metoprolol Tartrate (Lopressor) 50 mg BID PO ; Start 01/02/19 at 21:00 Lactobacillus Acidophilus/ Rhamnosus (Culturelle) 1 cap BID PO Last administered on 01/02/19at 12:50; Admin Dose 1 CAP; Start 01/02/19 at 10:30 Miscellaneous Information 1 ea NOTE XX ; Start 01/02/19 at 11:00 Glucose (Glutose) 15 gm Q15M PRN PO DECREASED GLUCOSE; Start 01/02/19 at 11:00 Glucose (Glutose) 22.5 gm Q15M PRN PO DECREASED GLUCOSE; Start 6/12/19 at 11:00 Dextrose (D50w Syringe) 25 ml Q15M PRN IV DECREASED GLUCOSE; Start 01/02/19 at 11:00 Dextrose (D50w Syringe) 50 ml Q15M PRN IV DECREASED GLUCOSE; Start 01/02/19 at 11:00 Glucagon (Glucagen) 1 mg Q15M PRN IM DECREASED GLUCOSE; Start 01/02/19 at 11:00 Glucose (Glutose) 15 gm Q15M PRN BUCCAL DECREASED GLUCOSE; Start 01/02/19 at 11:00 GIANNI RANGEL MD Jan 02, 2019 13:47
[2019-01-02 14:28] VITALS: BP_SYST 113; BP_SYST 119; BP_DIAS 58; BP_DIAS 59; PULSE 71; PULSE 87; RESP 18
[2019-01-02] MEDS: MEROPENEM 1 GM/50ML(PMX) 50 ML IVPB SCH (18:50)
[2019-01-02 19:50] VITALS: BP 133/67; PULSE 87; RESP 20
[2019-01-02] MEDS: METOPROLOL 50 MG TAB PO SCH (21:27)
[2019-01-02] MEDS: ATORVASTATIN 40 MG TAB PO SCH (21:27)
[2019-01-03] MEDS: ACCU-CHEK XX SCH (02:00)
[2019-01-03 02:15] VITALS: BP 137/60; PULSE 77; RESP 18
[2019-01-03] MEDS: MEROPENEM 1 GM/50ML(PMX) 50 ML IVPB SCH ×2 (05:39→17:29)
[2019-01-03 07:44] VITALS: BP 117/59; PULSE 71; RESP 18
[2019-01-03] MEDS: INSULIN ASPART [NOVOLOG] 3 ML PEN SC SCH ×4 (07:50→21:21)
[2019-01-03] MEDS: CHOLECALCIFEROL 1,000 UNIT TAB PO SCH (08:44)
[2019-01-03] MEDS: LACTOBACILLUS RHAMNOSUS CAP PO SCH ×2 (08:46→20:50)
[2019-01-03] MEDS: CLOPIDOGREL 75 MG TAB PO SCH (08:46)
[2019-01-03] MEDS: METOPROLOL 50 MG TAB PO SCH ×2 (08:46→20:51)
[2019-01-03] MEDS: LISINOPRIL 5 MG TAB PO SCH (08:47)
[2019-01-03] MEDS: PANTOPRAZOLE (EC) 40 MG TAB PO SCH (08:47)
[2019-01-03] MEDS: ASPIRIN (EC) 81 MG TAB PO SCH (08:47)
[2019-01-03] MEDS: HEPARIN 5,000 UNIT/1 ML VIAL SC SCH (08:48)
[2019-01-03] MEDS: COLLAGENASE 5 GM (UD JAR) TOP SCH (08:49)
[2019-01-03] MEDS: DAKINS 0.0125%(1/40) 473 ML SOLUTION TP SCH ×2 (08:49→21:22)
--- NOTE | 2019-01-03 13:53 | CONS ---
Assessment/Plan Assessment/Plan Hospital Course (Demo Recall) Preoperative cardiac risk stratification Peripheral arterial disease depending common femoral endarterectomy Critical limb ischemia with nonhealing ulcer Atrial fibrillation Preserved left ventricular ejection fraction Mild aortic valve stenosis Tricuspid and mitral valve regurgitation Please refer to my consult note dated 01/02/2019 discussing preoperative cardiac risk stratification. Of note, patient with atrial fibrillation with multiple risk factors for thromboembolic events and should be on anticoagulation. She is currently on dual antiplatelet therapy likely secondary to peripheral arterial disease. I would recommend switching her over to Eliquis 2.5 mg p.o. twice daily given her age and creatinine. I did discuss this with the patient's son at bedside. Patient does ambulate with a walker but otherwise no history of any falls. I did tell him that if the surgery would be delayed, would recommend starting anticoagulation sooner. Given possible surgery early next week, anticoagulation will need to be held prior to surgery. Once anticoagulation is started, would stop dual antiplatelet therapy given increased risk of bleeding Consultation Date/Type/Reason Admit Date/Time Dec 31, 2018 at 00:35 Initial Consult Date 01/02/19 Type of Consult Cardiology Requesting Provider: MARGARITA ROJAS Date/Time of Note DATE: 01/03/19 TIME: 13:50 24 HR Interval Summary Free Text/Dictation No shortness of breath, palpitations, chest pain Exam/Review of Systems Vital Signs Vitals Vital Signs Date Temp Pulse Resp B/P (MAP) Pulse Ox O2 O2 Flow FiO2 Time Delivery Rate 01/03/19 98.0 71 18 117/59 97 Room Air 07:44 (78) 01/01/19 21 22:08 Intake and Output 01/02/19 01/02/19 01/03/19 1515:00 23:00 07:00 IntakeIntake Total 610 ml 1010 ml 50 ml BalanceBalance 610 ml 1010 ml 50 ml Exam Constitutional: alert, oriented (No apparent distress) Head: normocephalic Respiratory: other (Coarse breath sounds bilaterally, no wheezing) Cardiovascular: irregular rhythm Gastrointestinal: soft, non-tender, bowel sounds Extremities: other (Trace edema) Labs Result Diagram: 01/03/19 0448 01/03/19 0448 Results 24hrs Laboratory Tests Test 01/02/19 17:55 01/02/19 21:26 01/03/19 02:16 01/03/19 04:48 Bedside Glucose 99 196 105 White Blood Count 6.4 Red Blood Count 3.47 L Hemoglobin 9.5 L Hematocrit 31.4 L Mean Corpuscular 90.5 Volume Mean Corpuscular 27.4 L Hemoglobin Mean Corpuscular 30.3 L Hemoglobin Concent Red Cell 14.1 Distribution Width Platelet Count 249 Mean Platelet Volume 9.7 Immature 0.200 Granulocytes % Neutrophils % 51.8 Lymphocytes % 28.5 Monocytes % 11.0 Eosinophils % 7.4 H Basophils % 1.1 Nucleated Red Blood 0.0 Cells % Immature 0.010 Granulocytes # Neutrophils # 3.3 Lymphocytes # 1.8 Monocytes # 0.7 Eosinophils # 0.5 Basophils # 0.1 Nucleated Red Blood 0.0 Cells # Erythrocyte 45 H Sedimentation Rate Sodium Level 141 Potassium Level 5.0 Chloride Level 110 Carbon Dioxide Level 24 Anion Gap 7 Blood Urea Nitrogen 33 H Creatinine 1.60 H Est Glomerular Filtrat Rate mL/min Glucose Level 104 Hemoglobin A1c 6.8 H Calcium Level 8.5 Test 01/03/19 08:43 01/03/19 12:59 Bedside Glucose 88 107 Medications Medications Current Medications IV Flush (NS 3 ml) 3 ml PER PROTOCOL IV ; Start 12/31/18 at 07:30 Ondansetron HCl (Zofran Inj) 4 mg Q6H PRN IV NAUSEA/VOMITING; Start 12/31/18 at 07:30 Acetaminophen (Tylenol Tab) 650 mg Q6H PRN PO .PAIN 1-3 OR TEMP; Start 12/31/18 at 07:30 Acetaminophen/ Hydrocodone Bitart ([place] (5/325)) 1 tab Q6H PRN PO .MOD PAIN 4- 6; Start 12/31/18 at 07:30 Morphine Sulfate (morphine) 2 mg Q4H PRN IV .SEVERE PAIN 7-10 Last administered on 12/31/18at 21:02; Admin Dose 2 MG; Start 12/31/18 at 07:30 Docusate Sodium (Colace) 100 mg Q12H PRN PO .CONSTIPATION; Start 12/31/18 at 07:30 Magnesium Hydroxide (Milk Of Mag) 30 ml DAILY PRN PO .CONSTIPATION; Start 12/31/18 at 07:30 Heparin Sodium (Porcine) (Heparin (5000 Units/1ml)) 5,000 unit Q12 SC Last adm inistered on 01/03/19 08:48; Admin Dose 5,000 UNIT; Start 12/31/18 at 09:00 Lorazepam (Ativan) 0.5 mg Q6H PRN IV ANXIETY; Start 12/31/18 at 07:30 Albuterol/ Ipratropium (Duoneb) 3 ml Q4H RESP THERAPY PRN HHN SHORTNESS OF BREATH; Start 12/31/18 at 07:30 Hydralazine HCl (Apresoline) 10 mg Q6H PRN IV ELEVATED BLOOD PRESSURE; Start 12/31/18 at 07:30 Nitroglycerin (Nitroglycerin (Sl Tab) 0.4 Mg) 1 tab Q5M PRN SL ANGINA; Start 12/31/18 at 07:30 Cholecalciferol (Vitamin D) 1,000 unit DAILY PO Last administered on 01/03/19 08:44; Admin Dose 1,000 UNIT; Start 12/31/18 at 09:00 Pantoprazole (Protonix Tab) 40 mg DAILY PO Last administered on 01/03/19 08:47; Admin Dose 40 MG; Start 12/31/18 at 09:00 Vancomycin HCl (Vanco Iv Per Pharmacy) VANCOMYCIN PER PHARMACY PER PROTOCOL XX ; Start 12/31/18 at 11:00 Aspirin (Halfprin) 81 mg DAILY PO Last administered on 01/03/19 08:47; Admin Dose 81 MG; Start 01/01/19 at 09:00 Clopidogrel Bisulfate (plaVIX) 75 mg DAILY PO Last administered on 01/03/19 08:46; Admin Dose 75 MG; Start 01/01/19 at 09:00 Lisinopril (Zestril) 2.5 mg DAILY PO Last administered on 01/03/19 08:47; Admin Dose 2.5 MG; Start 01/01/19 at 09:00 Atorvastatin Calcium (Lipitor) 40 mg DAILY@21 PO Last administered on 01/02/19 21:27; Admin Dose 40 MG; Start 12/31/18 at 21:00 Vancomycin HCl 250 ml @ 125 mls/hr Q48H IVPB Last administered on 01/02/19 12:53; Admin Dose 125 MLS/HR; Start 01/02/19 at 13:30 Collagenase (Santyl) 1 applic DAILY TOP Last administered on 01/03/19 08:49; Admin Dose 1 APPLIC; Start 12/31/18 at 19:30 Sodium Hypochlorite (Dakins Diluted ()) 1 applic BID TP Last administered on 01/03/19at 08:49; Admin Dose 1 APPLIC; Start 01/01/19 at 12:00 Diagnostic Test (Pha) (Accu-Chek) 1 ea 02 XX ; Start 01/03/19 at 02:00 Insulin Aspart (Novolog Insulin Pen) NOVOLOG *MILD* ALGORITHM WITH MEALS BEDTIME SC Last administered on 01/02/19at 21:33; Admin Dose 1 UNIT; Start 01/02/19 at 11:40 Metoprolol Tartrate (Lopressor) 50 mg BID PO Last administered on 01/03/19at 08:46; Admin Dose 50 MG; Start 01/02/19 at 21:00 Lactobacillus Acidophilus/ Rhamnosus (Culturelle) 1 cap BID PO Last administered on 01/03/19at 08:46; Admin Dose 1 CAP; Start 01/02/19 at 10:30 Miscellaneous Information 1 ea NOTE XX ; Start 01/02/19 at 11:00 Glucose (Glutose) 15 gm Q15M PRN PO DECREASED GLUCOSE; Start 01/02/19 at 11:00 Glucose (Glutose) 22.5 gm Q15M PRN PO DECREASED GLUCOSE; Start 01/02/19 at 11:00 Dextrose (D50w Syringe) 25 ml Q15M PRN IV DECREASED GLUCOSE; Start 01/02/19 at 11:00 Dextrose (D50w Syringe) 50 ml Q15M PRN IV DECREASED GLUCOSE; Start 01/02/19 at 11:00 Glucagon (Glucagen) 1 mg Q15M PRN IM DECREASED GLUCOSE; Start 01/02/19 at 11:00 Glucose (Glutose) 15 gm Q15M PRN BUCCAL DECREASED GLUCOSE; Start 01/02/19 at 11:00 Miscellaneous Information (*Rx Drug Level Order Reminder*) VANCO TROUGH @ 1,230 ON... 1230 ONCE XX ; Start 01/04/19 at 12:30; Stop 01/04/19 at 12:31 Meropenem/Sodium Chloride 50 ml @ 100 mls/hr Q12H IVPB Last administered on 01/03/19at 05:39; Admin Dose 100 MLS/HR; Start 01/02/19 at 18:30 Omer Burrows DO Jan 03, 2019 13:53
[2019-01-03 14:51] VITALS: BP 101/59; PULSE 78; RESP 18
--- NOTE | 2019-01-03 16:14 | CONS ---
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 Allen planning R femoral endarterectomy likely next week Management d/w patient, pt's son Ankit, RN Marielal, and with Dr. Rubalcava Consultation Date/Type/Reason Admit Date/Time Dec 31, 2018 at 00:35 Initial Consult Date 01/02/19 Type of Consult Infectious Disease Requesting Provider: MARGARITA ROJAS Date/Time of Note DATE: 01/03/19 TIME: 16:13 Exam/Review of Systems Exam Vitals Vital Signs Date Temp Pulse Resp B/P (MAP) Pulse Ox O2 O2 Flow FiO2 Time Delivery Rate 01/03/19 98.0 78 18 101/59 96 Room Air 14:51 (73) 01/01/19 21 22:08 Intake and Output 01/02/19 01/02/19 01/03/19 1515:00 23:00 07:00 IntakeIntake Total 610 ml 1010 ml 50 ml BalanceBalance 610 ml 1010 ml 50 ml Constitutional: alert, oriented, well developed Psych: no complaints, nl mood/affect Head: normocephalic, atraumatic Eyes: nl conjunctiva, nl lids ENMT: nl external ears & nose, nl nasal mucosa & septum Neck: supple Respiratory: clear to auscultation, normal air movement Cardiovascular: irregular rhythm, systolic murmur Gastrointestinal: soft, non-tender Extremities: edema (trace) Neurological: nl mental status, nl speech Skin: nl turgor, other (R foot wrapped with Kerlix c/d/i) Results Result Diagram: 01/03/1944701/03/19447 Results 24hrs Laboratory Tests Test 01/02/19 17:55 01/02/19 21:26 01/03/19 02:16 01/03/19 04:48 Bedside Glucose 99 196 105 White Blood Count 6.4 Red Blood Count 3.47 L Hemoglobin 9.5 L Hematocrit 31.4 L Mean Corpuscular 90.5 Volume Mean Corpuscular 27.4 L Hemoglobin Mean Corpuscular 30.3 L Hemoglobin Concent Red Cell 14.1 Distribution Width Platelet Count 249 Mean Platelet Volume 9.7 Immature 0.200 Granulocytes % Neutrophils % 51.8 Lymphocytes % 28.5 Monocytes % 11.0 Eosinophils % 7.4 H Basophils % 1.1 Nucleated Red Blood 0.0 Cells % Immature 0.010 Granulocytes # Neutrophils # 3.3 Lymphocytes # 1.8 Monocytes # 0.7 Eosinophils # 0.5 Basophils # 0.1 Nucleated Red Blood 0.0 Cells # Erythrocyte 45 H Sedimentation Rate Sodium Level 141 Potassium Level 5.0 Chloride Level 110 Carbon Dioxide Level 24 Anion Gap 7 Blood Urea Nitrogen 33 H Creatinine 1.60 H Est Glomerular Filtrat Rate mL/min Glucose Level 104 Hemoglobin A1c 6.8 H Calcium Level 8.5 Test 01/03/19 08:43 01/03/19 12:59 Bedside Glucose 88 107 Imaging Imaging MRI R foot 12/31/2018: Mild bone marrow edema in the fourth toe proximal phalanx which could represent early osteomyelitis or nonspecific stress reaction. Correlate for infection in that area. Moderate soft tissue edema without evidence of abscess, suggesting cellulitis. Moderate to advance polyarticular arthrosis, predominately involving the tarsometatarsal joints, and the first MTP joint where there is also hallux valgus deformity. 2D echo 01/02/2019: Normal left ventricular systolic function. Normal left ventricular cavity size. Sigmoid septum. Ejection fraction is visually estimated at 65 %. Abnormal Diastolic Function. Normal right ventricular size. Normal right ventricular systolic function. There is moderate enlargement of left atrium. The right atrium is normal in size. Mild mitral valve regurgitation. Mild aortic stenosis. Mild aortic valve regurgitation. The estimated Peak RVSP is 42 mmHg. There is mild to moderate tricuspid regurgitation. Normal pericardium with no significant pericardial effusion. Medications Medication Current Medications IV Flush (NS 3 ml) 3 ml PER PROTOCOL IV ; Start 12/31/18 at 07:30 Ondansetron HCl (Zofran Inj) 4 mg Q6H PRN IV NAUSEA/VOMITING; Start 12/31/18 at 07:30 Acetaminophen (Tylenol Tab) 650 mg Q6H PRN PO .PAIN 1-3 OR TEMP; Start 12/31/18 at 07:30 Acetaminophen/ Hydrocodone Bitart ([place] (5/325)) 1 tab Q6H PRN PO .MOD PAIN 4- 6; Start 12/31/18 at 07:30 Morphine Sulfate (morphine) 2 mg Q4H PRN IV .SEVERE PAIN 7-10 Last administered on 12/31/18at 21:02; Admin Dose 2 MG; Start 12/31/18 at 07:30 Docusate Sodium (Colace) 100 mg Q12H PRN PO .CONSTIPATION; Start 12/31/18 at 07:30 Magnesium Hydroxide (Milk Of Mag) 30 ml DAILY PRN PO .CONSTIPATION; Start 12/31/18 at 07:30 Heparin Sodium (Porcine) (Heparin (5000 Units/1ml)) 5,000 unit Q12 SC Last administered on 01/03/19at 08:48; Admin Dose 5,000 UNIT; Start 12/31/18 at 09:00 Lorazepam (Ativan) 0.5 mg Q6H PRN IV ANXIETY; Start 12/31/18 at 07:30 Albuterol/ Ipratropium (Duoneb) 3 ml Q4H RESP THERAPY PRN HHN SHORTNESS OF BREATH; Start 12/31/18 at 07:30 Hydralazine HCl (Apresoline) 10 mg Q6H PRN IV ELEVATED BLOOD PRESSURE; Start 12/31/18 at 07:30 Nitroglycerin (Nitroglycerin (Sl Tab) 0.4 Mg) 1 tab Q5M PRN SL ANGINA; Start 12/31/18 at 07:30 Cholecalciferol (Vitamin D) 1,000 unit DAILY PO Last administered on 01/03/19at 08:44; Admin Dose 1,000 UNIT; Start 12/31/18 at 09:00 Pantoprazole (Protonix Tab) 40 mg DAILY PO Last administered on 01/03/19at 08:47; Admin Dose 40 MG; Start 12/31/18 at 09:00 Vancomycin HCl (Vanco Iv Per Pharmacy) VANCOMYCIN PER PHARMACY PER PROTOCOL XX ; Start 12/31/18 at 11:00 Aspirin (Halfprin) 81 mg DAILY PO Last administered on 01/03/19 08:47; Admin Dose 81 MG; Start 01/01/19 at 09:00 Clopidogrel Bisulfate (plaVIX) 75 mg DAILY PO Last administered on 01/03/19 08:46; Admin Dose 75 MG; Start 01/01/19 at 09:00 Lisinopril (Zestril) 2.5 mg DAILY PO Last administered on 01/03/19 08:47; Admin Dose 2.5 MG; Start 01/01/19 at 09:00 Atorvastatin Calcium (Lipitor) 40 mg DAILY@21 PO Last administered on 01/02/19 21:27; Admin Dose 40 MG; Start 12/31/18 at 21:00 Vancomycin HCl 250 ml @ 125 mls/hr Q48H IVPB Last administered on 01/02/19 12:53; Admin Dose 125 MLS/HR; Start 01/02/19 at 13:30 Collagenase (Santyl) 1 applic DAILY TOP Last administered on 01/03/19 08:49; Admin Dose 1 APPLIC; Start 12/31/18 at 19:30 Sodium Hypochlorite (Dakins Diluted (40)) 1 applic BID TP Last administered on 01/03/19 08:49; Admin Dose 1 APPLIC; Start 01/01/19 at 12:00 Diagnostic Test (Pha) (Accu-Chek) 1 ea 02 XX ; Start 01/03/19 at 02:00 Insulin Aspart (Novolog Insulin Pen) NOVOLOG *MILD* ALGORITHM WITH MEALS BEDTIME SC Last administered on 01/02/19 21:33; Admin Dose 1 UNIT; Start 01/02/19 at 11:40 Metoprolol Tartrate (Lopressor) 50 mg BID PO Last administered on 01/03/19 08:46; Admin Dose 50 MG; Start 01/02/19 at 21:00 Lactobacillus Acidophilus/ Rhamnosus (Culturelle) 1 cap BID PO Last administered on 01/03/19 08:46; Admin Dose 1 CAP; Start 01/02/19 at 10:30 Miscellaneous Information 1 ea NOTE XX ; Start 01/02/19 at 11:00 Glucose (Glutose) 15 gm Q15M PRN PO DECREASED GLUCOSE; Start 01/02/19 at 11:00 Glucose (Glutose) 22.5 gm Q15M PRN PO DECREASED GLUCOSE; Start 01/02/19 at 11:00 Dextrose (D50w Syringe) 25 ml Q15M PRN IV DECREASED GLUCOSE; Start 01/02/19 at 11:00 Dextrose (D50w Syringe) 50 ml Q15M PRN IV DECREASED GLUCOSE; Start 01/02/19 at 11:00 Glucagon (Glucagen) 1 mg Q15M PRN IM DECREASED GLUCOSE; Start 01/02/19 at 11:00 Glucose (Glutose) 15 gm Q15M PRN BUCCAL DECREASED GLUCOSE; Start 01/02/19 at 11:00 Miscellaneous Information (*Rx Drug Level Order Reminder*) VANCO TROUGH @ 1,230 ON... 1230 ONCE XX ; Start 01/04/19 at 12:30; Stop 01/04/19 at 12:31 Meropenem/Sodium Chloride 50 ml @ 100 mls/hr Q12H IVPB Last administered on 01/03/19at 05:39; Admin Dose 100 MLS/HR; Start 01/02/19 at 18:30 MARTÍNEZ DUARTE NP Jan 03, 2019 16:14
[2019-01-03] MEDS ORDERED: LIDOCAINE 1% (MPF) 5 ML VIAL SC ONE (18:00)
--- NOTE | 2019-01-03 19:02 | PN ---
Date/Time of Note Date/Time of Note DATE: 01/03/19 TIME: 18:58 Assessment/Plan VTE Prophylaxis Risk score (from Ns)>0 risk: 4 SCD applied (from Ns): Yes SCD contraindicated: low risk/ambulating Pharmacological prophylaxis: LMWH Lines/Catheters IV Catheter Type (from Nrs): Peripheral IV Urinary Cath still in place: No Assessment/Plan Hospital Course A/P 1. Lwr ext Ulcer/ OM; sp mri; order picc. home on ertapenem tomorrow 2. A Fib 3. CKD 4. DM II 5. Anemia 6. Htn 7. Ftt; home health/ pt/ safety 8. PAD; restenosed rt rca; surgery sometime next week. 9. Valvular heart disease; mild / MR/ TR S: no events O: vss PE no pallor/ jvd reg s1s2 no mrg ctab bs+ nt nd no r r g no edema; diminished pulses Result Diagram: 01/03/1944701/03/198 Results 24hrs Laboratory Tests Test 01/02/19 21:26 01/03/19 02:16 01/03/19 04:48 01/03/19 08:43 Bedside Glucose 196 105 88 White Blood Count 6.4 Red Blood Count 3.47 L Hemoglobin 9.5 L Hematocrit 31.4 L Mean Corpuscular 90.5 Volume Mean Corpuscular 27.4 L Hemoglobin Mean Corpuscular 30.3 L Hemoglobin Concent Red Cell 14.1 Distribution Width Platelet Count 249 Mean Platelet Volume 9.7 Immature 0.200 Granulocytes % Neutrophils % 51.8 Lymphocytes % 28.5 Monocytes % 11.0 Eosinophils % 7.4 H Basophils % 1.1 Nucleated Red Blood 0.0 Cells % Immature 0.010 Granulocytes # Neutrophils # 3.3 Lymphocytes # 1.8 Monocytes # 0.7 Eosinophils # 0.5 Basophils # 0.1 Nucleated Red Blood 0.0 Cells # Erythrocyte 45 H Sedimentation Rate Sodium Level 141 Potassium Level 5.0 Chloride Level 110 Carbon Dioxide Level 24 Anion Gap 7 Blood Urea Nitrogen 33 H Creatinine 1.60 H Est Glomerular Filtrat Rate mL/min Glucose Level 104 Hemoglobin A1c 6.8 H Calcium Level 8.5 Test 01/03/19 12:59 01/03/19 17:28 Bedside Glucose 107 137 Exam/Review of Systems Exam Vitals Vital Signs Date Temp Pulse Resp B/P (MAP) Pulse Ox O2 O2 Flow FiO2 Time Delivery Rate 01/03/19 98.0 78 18 101/59 96 Room Air 14:51 (73) 01/01/19 21 22:08 Intake and Output 01/02/19 01/02/19 01/03/19 1515:00 23:00 07:00 IntakeIntake Total 610 ml 1010 ml 50 ml BalanceBalance 610 ml 1010 ml 50 ml Results Results 24hrs Laboratory Tests Test 01/02/19 21:26 01/03/19 02:16 01/03/19 04:48 01/03/19 08:43 Bedside Glucose 196 105 88 White Blood Count 6.4 Red Blood Count 3.47 L Hemoglobin 9.5 L Hematocrit 31.4 L Mean Corpuscular 90.5 Volume Mean Corpuscular 27.4 L Hemoglobin Mean Corpuscular 30.3 L Hemoglobin Concent Red Cell 14.1 Distribution Width Platelet Count 249 Mean Platelet Volume 9.7 Immature 0.200 Granulocytes % Neutrophils % 51.8 Lymphocytes % 28.5 Monocytes % 11.0 Eosinophils % 7.4 H Basophils % 1.1 Nucleated Red Blood 0.0 Cells % Immature 0.010 Granulocytes # Neutrophils # 3.3 Lymphocytes # 1.8 Monocytes # 0.7 Eosinophils # 0.5 Basophils # 0.1 Nucleated Red Blood 0.0 Cells # Erythrocyte 45 H Sedimentation Rate Sodium Level 141 Potassium Level 5.0 Chloride Level 110 Carbon Dioxide Level 24 Anion Gap 7 Blood Urea Nitrogen 33 H Creatinine 1.60 H Est Glomerular Filtrat Rate mL/min Glucose Level 104 Hemoglobin A1c 6.8 H Calcium Level 8.5 Test 01/03/19 12:59 01/03/19 17:28 Bedside Glucose 107 137 Medications Medication Current Medications IV Flush (NS 3 ml) 3 ml PER PROTOCOL IV ; Start 12/31/18 at 07:30 Ondansetron HCl (Zofran Inj) 4 mg Q6H PRN IV NAUSEA/VOMITING; Start 12/31/18 at 07:30 Acetaminophen (Tylenol Tab) 650 mg Q6H PRN PO .PAIN 1-3 OR TEMP; Start 12/31/18 at 07:30 Acetaminophen/ Hydrocodone Bitart ([place] (5/325)) 1 tab Q6H PRN PO .MOD PAIN 4- 6; Start 12/31/18 at 07:30 Morphine Sulfate (morphine) 2 mg Q4H PRN IV .SEVERE PAIN 7-10 Last administered on 12/31/18at 21:02; Admin Dose 2 MG; Start 12/31/18 at 07:30 Docusate Sodium (Colace) 100 mg Q12H PRN PO .CONSTIPATION; Start 12/31/18 at 07:30 Magnesium Hydroxide (Milk Of Mag) 30 ml DAILY PRN PO .CONSTIPATION; Start 12/31/18 at 07:30 Heparin Sodium (Porcine) (Heparin (5000 Units/1ml)) 5,000 unit Q12 SC Last administered on 01/03/19 08:48; Admin Dose 5,000 UNIT; Start 12/31/18 at 09:00 Lorazepam (Ativan) 0.5 mg Q6H PRN IV ANXIETY; Start 12/31/18 at 07:30 Albuterol/ Ipratropium (Duoneb) 3 ml Q4H RESP THERAPY PRN HHN SHORTNESS OF BREATH; Start 12/31/18 at 07:30 Hydralazine HCl (Apresoline) 10 mg Q6H PRN IV ELEVATED BLOOD PRESSURE; Start 12/31/18 at 07:30 Nitroglycerin (Nitroglycerin (Sl Tab) 0.4 Mg) 1 tab Q5M PRN SL ANGINA; Start 12/31/18 at 07:30 Cholecalciferol (Vitamin D) 1,000 unit DAILY PO Last administered on 01/03/19 08:44; Admin Dose 1,000 UNIT; Start 12/31/18 at 09:00 Pantoprazole (Protonix Tab) 40 mg DAILY PO Last administered on 01/03/19 08:47; Admin Dose 40 MG; Start 12/31/18 at 09:00 Vancomycin HCl (Vanco Iv Per Pharmacy) VANCOMYCIN PER PHARMACY PER PROTOCOL XX ; Start 12/31/18 at 11:00 Aspirin (Halfprin) 81 mg DAILY PO Last administered on 01/03/19 08:47; Admin Dose 81 MG; Start 01/01/19 at 09:00 Clopidogrel Bisulfate (plaVIX) 75 mg DAILY PO Last administered on 01/03/19 08:46; Admin Dose 75 MG; Start 01/01/19 at 09:00 Lisinopril (Zestril) 2.5 mg DAILY PO Last administered on 01/03/19 08:47; Admin Dose 2.5 MG; Start 01/01/19 at 09:00 Atorvastatin Calcium (Lipitor) 40 mg DAILY@21 PO Last administered on 01/02/19 21:27; Admin Dose 40 MG; Start 12/31/18 at 21:00 Vancomycin HCl 250 ml @ 125 mls/hr Q48H IVPB Last administered on 01/02/19 12:53; Admin Dose 125 MLS/HR; Start 01/02/19 at 13:30 Collagenase (Santyl) 1 applic DAILY TOP Last administered on 01/03/19 08:49; Admin Dose 1 APPLIC; Start 12/31/18 at 19:30 Sodium Hypochlorite (Dakins Diluted ()) 1 applic BID TP Last administered on 01/03/19 08:49; Admin Dose 1 APPLIC; Start 01/01/19 at 12:00 Diagnostic Test (Pha) (Accu-Chek) 1 ea 02 XX ; Start 01/03/19 at 02:00 Insulin Aspart (Novolog Insulin Pen) NOVOLOG *MILD* ALGORITHM WITH MEALS BEDTIME SC Last administered on 01/02/19 21:33; Admin Dose 1 UNIT; Start 01/02/19 at 11:40 Metoprolol Tartrate (Lopressor) 50 mg BID PO Last administered on 01/03/19 08:46; Admin Dose 50 MG; Start 01/02/19 at 21:00 Lactobacillus Acidophilus/ Rhamnosus (Culturelle) 1 cap BID PO Last administer ed on 01/03/19 08:46; Admin Dose 1 CAP; Start 01/02/19 at 10:30 Miscellaneous Information 1 ea NOTE XX ; Start 01/02/19 at 11:00 Glucose (Glutose) 15 gm Q15M PRN PO DECREASED GLUCOSE; Start 01/02/19 at 11:00 Glucose (Glutose) 22.5 gm Q15M PRN PO DECREASED GLUCOSE; Start 01/02/19 at 11:00 Dextrose (D50w Syringe) 25 ml Q15M PRN IV DECREASED GLUCOSE; Start 01/02/19 at 11:00 Dextrose (D50w Syringe) 50 ml Q15M PRN IV DECREASED GLUCOSE; Start 01/02/19 at 11:00 Glucagon (Glucagen) 1 mg Q15M PRN IM DECREASED GLUCOSE; Start 01/02/19 at 11:00 Glucose (Glutose) 15 gm Q15M PRN BUCCAL DECREASED GLUCOSE; Start 01/02/19 at 11:00 Miscellaneous Information (*Rx Drug Level Order Reminder*) VANCO TROUGH @ 1,230 ON... 1230 ONCE XX ; Start 01/04/19 at 12:30; Stop 01/04/19 at 12:31 Meropenem/Sodium Chloride 50 ml @ 100 mls/hr Q12H IVPB Last administered on 01/03/19at 17:29; Admin Dose 100 MLS/HR; Start 01/02/19 at 18:30 CONY MALONEY MD Jan 03, 2019 19:02
[2019-01-03 20:29] VITALS: BP 159/61; PULSE 92; RESP 20
[2019-01-03] MEDS: ATORVASTATIN 40 MG TAB PO SCH (20:50)
[2019-01-04] MEDS: ACCU-CHEK XX SCH (02:00)
[2019-01-04 02:03] VITALS: BP 152/64; PULSE 90; RESP 18
[2019-01-04] MEDS: MEROPENEM 1 GM/50ML(PMX) 50 ML IVPB SCH ×2 (06:00→18:41)
[2019-01-04 07:51] VITALS: BP 112/56; PULSE 86; RESP 18
[2019-01-04] MEDS: INSULIN ASPART [NOVOLOG] 3 ML PEN SC SCH ×4 (09:00→21:43)
[2019-01-04] MEDS: COLLAGENASE 5 GM (UD JAR) TOP SCH (09:00)
[2019-01-04] MEDS: METOPROLOL 50 MG TAB PO SCH ×2 (09:00→21:00)
[2019-01-04] MEDS: LISINOPRIL 5 MG TAB PO SCH (09:00)
[2019-01-04] MEDS: CHOLECALCIFEROL 1,000 UNIT TAB PO SCH (09:10)
[2019-01-04] MEDS: PANTOPRAZOLE (EC) 40 MG TAB PO SCH (09:10)
[2019-01-04] MEDS: LACTOBACILLUS RHAMNOSUS CAP PO SCH ×2 (09:10→21:32)
[2019-01-04] MEDS: DAKINS 0.0125%(1/40) 473 ML SOLUTION TP SCH ×2 (09:11→21:44)
--- NOTE | 2019-01-04 10:52 | CONS ---
Assessment/Plan Assessment/Plan Hospital Course (Demo Recall) Preoperative cardiac risk stratification Peripheral arterial disease depending common femoral endarterectomy Critical limb ischemia with nonhealing ulcer Atrial fibrillation Preserved left ventricular ejection fraction Mild aortic valve stenosis Tricuspid and mitral valve regurgitation Please refer to my consult note dated 01/02/2019 discussing preoperative cardiac risk stratification. Of note, patient with atrial fibrillation with multiple risk factors for thromboembolic events and should be on anticoagulation. She is currently on dual antiplatelet therapy likely secondary to peripheral arterial disease. I would recommend switching her over to Eliquis 2.5 mg p.o. twice daily given her age and creatinine. I did discuss this with the patient's son at bedside as well as granddaughter. Patient does ambulate with a walker but otherwise no history of any falls. I did tell him that if the surgery would be delayed, would recommend starting anticoagulation sooner. Given possible surgery early next week, anticoagulation will need to be held prior to surgery. Once anticoagulation is started, would stop dual antiplatelet therapy given increased risk of bleeding Continue beta-juan as tolerated Consultation Date/Type/Reason Admit Date/Time Dec 31, 2018 at 00:35 Initial Consult Date 01/02/19 Type of Consult Cardiology Requesting Provider: MARGARITA ROJAS Date/Time of Note DATE: 01/04/19 TIME: 10:50 24 HR Interval Summary Free Text/Dictation No shortness of breath, palpitations, chest pain Exam/Review of Systems Vital Signs Vitals Vital Signs Date Temp Pulse Resp B/P (MAP) Pulse Ox O2 O2 Flow FiO2 Time Delivery Rate 01/04/19 98.2 86 18 112/56 92 Room Air 07:51 (74) 01/01/19 21 22:08 Intake and Output 01/03/19 01/03/19 01/04/19 1515:00 23:00 07:00 IntakeIntake Total 320 ml 490 ml 200 ml OutputOutput Total 650 ml 550 ml BalanceBalance -330 ml 490 ml -350 ml Exam Constitutional: alert, oriented (No apparent distress) Head: normocephalic Respiratory: other (Coarse breath sounds bilaterally, no wheezing) Cardiovascular: irregular rhythm (S1-S2 heard) Gastrointestinal: soft, non-tender, bowel sounds Musculoskeletal: other (Bandage lower extremity) Labs Result Diagram: 01/04/190 01/04/19 0440 Results 24hrs Laboratory Tests Test 01/03/19 12:59 01/03/19 17:28 01/03/19 20:55 01/04/19 01:56 Bedside Glucose 107 137 196 142 Test 01/04/19 04:40 01/04/19 09:04 White Blood Count 6.5 Red Blood Count 3.29 L Hemoglobin 9.2 L Hematocrit 29.7 L Mean Corpuscular 90.3 Volume Mean Corpuscular 28.0 L Hemoglobin Mean Corpuscular 31.0 L Hemoglobin Concent Red Cell 14.1 Distribution Width Platelet Count 253 Mean Platelet Volume 9.7 Immature 0.300 Granulocytes % Neutrophils % 54.2 Lymphocytes % 28.1 Monocytes % 11.0 Eosinophils % 5.8 Basophils % 0.6 Nucleated Red Blood 0.0 Cells % Immature 0.020 Granulocytes # Neutrophils # 3.5 Lymphocytes # 1.8 Monocytes # 0.7 Eosinophils # 0.4 Basophils # 0.0 Nucleated Red Blood 0.0 Cells # Sodium Level 140 Potassium Level 4.5 Chloride Level 112 H Carbon Dioxide Level 20 L Anion Gap 8 Blood Urea Nitrogen 39 H Creatinine 1.68 H Est Glomerular Filtrat Rate mL/min Glucose Level 118 Calcium Level 8.6 Phosphorus Level 4.7 Magnesium Level 1.6 L Thyroid Stimulating 0.522 Hormone (TSH) Bedside Glucose 88 Medications Medications Current Medications IV Flush (NS 3 ml) 3 ml PER PROTOCOL IV ; Start 12/31/18 at 07:30 Ondansetron HCl (Zofran Inj) 4 mg Q6H PRN IV NAUSEA/VOMITING; Start 12/31/18 at 07:30 Acetaminophen (Tylenol Tab) 650 mg Q6H PRN PO .PAIN 1-3 OR TEMP; Start 12/31/18 at 07:30 Acetaminophen/ Hydrocodone Bitart ([place] (5/325)) 1 tab Q6H PRN PO .MOD PAIN 4- 6; Start 12/31/18 at 07:30 Morphine Sulfate (morphine) 2 mg Q4H PRN IV .SEVERE PAIN 7-10 Last administered on 12/31/18at 21:02; Admin Dose 2 MG; Start 12/31/18 at 07:30 Docusate Sodium (Colace) 100 mg Q12H PRN PO .CONSTIPATION; Start 12/31/18 at 07:30 Magnesium Hydroxide (Milk Of Mag) 30 ml DAILY PRN PO .CONSTIPATION; Start 12/31/18 at 07:30 Lorazepam (Ativan) 0.5 mg Q6H PRN IV ANXIETY; Start 12/31/18 at 07:30 Albuterol/ Ipratropium (Duoneb) 3 ml Q4H RESP THERAPY PRN HHN SHORTNESS OF BREATH; Start 12/31/18 at 07:30 Hydralazine HCl (Apresoline) 10 mg Q6H PRN IV ELEVATED BLOOD PRESSURE; Start 12/31/18 at 07:30 Nitroglycerin (Nitroglycerin (Sl Tab) 0.4 Mg) 1 tab Q5M PRN SL ANGINA; Start 12/31/18 at 07:30 Cholecalciferol (Vitamin D) 1,000 unit DAILY PO Last administered on 01/04/19 09:10; Admin Dose 1,000 UNIT; Start 12/31/18 at 09:00 Pantoprazole (Protonix Tab) 40 mg DAILY PO Last administered on 01/04/19 09:10; Admin Dose 40 MG; Start 12/31/18 at 09:00 Vancomycin HCl (Vanco Iv Per Pharmacy) VANCOMYCIN PER PHARMACY PER PROTOCOL XX ; Start 12/31/18 at 11:00 Lisinopril (Zestril) 2.5 mg DAILY PO Last administered on 01/03/19 08:47; Admin Dose 2.5 MG; Start 01/01/19 at 09:00 Atorvastatin Calcium (Lipitor) 40 mg DAILY@21 PO Last administered on 01/03/19 20:50; Admin Dose 40 MG; Start 12/31/18 at 21:00 Vancomycin HCl 250 ml @ 125 mls/hr Q48H IVPB Last administered on 01/02/19 12:53; Admin Dose 125 MLS/HR; Start 01/02/19 at 13:30 Collagenase (Santyl) 1 applic DAILY TOP Last administered on 01/03/19 08:49; Admin Dose 1 APPLIC; Start 12/31/18 at 19:30 Sodium Hypochlorite (Dakins Diluted (40)) 1 applic BID TP Last administered on 01/04/19 09:11; Admin Dose 1 APPLIC; Start 01/01/19 at 12:00 Diagnostic Test (Pha) (Accu-Chek) 1 ea 02 XX ; Start 01/03/19 at 02:00 Insulin Aspart (Novolog Insulin Pen) NOVOLOG *MILD* ALGORITHM WITH MEALS BEDTIME SC Last administered on 01/03/19at 21:21; Admin Dose 1 UNIT; Start 01/02/19 at 11:40 Metoprolol Tartrate (Lopressor) 50 mg BID PO Last administered on 01/03/19at 20:51; Admin Dose 50 MG; Start 01/02/19 at 21:00 Lactobacillus Acidophilus/ Rhamnosus (Culturelle) 1 cap BID PO Last ad ministered on 01/04/19at 09:10; Admin Dose 1 CAP; Start 01/02/19 at 10:30 Miscellaneous Information 1 ea NOTE XX ; Start 01/02/19 at 11:00 Glucose (Glutose) 15 gm Q15M PRN PO DECREASED GLUCOSE; Start 01/02/19 at 11:00 Glucose (Glutose) 22.5 gm Q15M PRN PO DECREASED GLUCOSE; Start 01/02/19 at 11:00 Dextrose (D50w Syringe) 25 ml Q15M PRN IV DECREASED GLUCOSE; Start 01/02/19 at 11:00 Dextrose (D50w Syringe) 50 ml Q15M PRN IV DECREASED GLUCOSE; Start 01/02/19 at 11:00 Glucagon (Glucagen) 1 mg Q15M PRN IM DECREASED GLUCOSE; Start 01/02/19 at 11:00 Glucose (Glutose) 15 gm Q15M PRN BUCCAL DECREASED GLUCOSE; Start 01/02/19 at 11:00 Miscellaneous Information (*Rx Drug Level Order Reminder*) VANCO TROUGH @ 1,230 ON... 1230 ONCE XX ; Start 01/04/19 at 12:30; Stop 01/04/19 at 12:31 Meropenem/Sodium Chloride 50 ml @ 100 mls/hr Q12H IVPB Last administered on 01/04/19at 06:00; Admin Dose 100 MLS/HR; Start 01/02/19 at 18:30 Apixaban (Eliquis) 2.5 mg BID PO ; Start 01/05/19 at 09:00 Omer Burrows DO Jan 04, 2019 10:52
[2019-01-04] MEDS: VANCOMYCIN 1 GM 250 ML IVPB SCH (14:22)
[2019-01-04 14:45] VITALS: BP 101/55; PULSE 83; RESP 18
--- NOTE | 2019-01-04 16:09 | CONS ---
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 Consultation Date/Type/Reason Admit Date/Time Dec 31, 2018 at 00:35 Initial Consult Date 01/02/19 Type of Consult ID Requesting Provider: MARGARITA ROJAS Date/Time of Note DATE: 01/04/19 TIME: 16:08 24 HR Interval Summary Free Text/Dictation d/w family at bedside. I answered all their questions and gave them my cards. d/w Dr. Colby. Exam/Review of Systems Exam Vitals Vital Signs Date Temp Pulse Resp B/P (MAP) Pulse Ox O2 O2 Flow FiO2 Time Delivery Rate 01/04/19 97.8 83 18 101/55 92 Room Air 14:45 (70) 01/01/19 21 22:08 Intake and Output 01/03/19 01/03/19 01/04/19 1515:00 23:00 07:00 IntakeIntake Total 320 ml 490 ml 200 ml OutputOutput Total 650 ml 550 ml BalanceBalance -330 ml 490 ml -350 ml Constitutional: alert, oriented, well developed Psych: no complaints, nl mood/affect Head: normocephalic, atraumatic Eyes: nl conjunctiva, EOMI, nl lids, nl sclera, PERRL ENMT: nl external ears & nose, nl lips & teeth, nl nasal mucosa & septum Respiratory: clear to auscultation Cardiovascular: regular rate and rhythm Gastrointestinal: soft Neurological: [employer]PERATOR II-XII intact Results Result Diagram: 01/04/1943901/04/19439 Results 24hrs Laboratory Tests Test 01/03/19 17:28 01/03/19 20:55 01/04/19 01:56 01/04/19 04:40 Bedside Glucose 137 196 142 White Blood Count 6.5 Red Blood Count 3.29 L Hemoglobin 9.2 L Hematocrit 29.7 L Mean Corpuscular 90.3 Volume Mean Corpuscular 28.0 L Hemoglobin Mean Corpuscular 31.0 L Hemoglobin Concent Red Cell 14.1 Distribution Width Platelet Count 253 Mean Platelet Volume 9.7 Immature 0.300 Granulocytes % Neutrophils % 54.2 Lymphocytes % 28.1 Monocytes % 11.0 Eosinophils % 5.8 Basophils % 0.6 Nucleated Red Blood 0.0 Cells % Immature 0.020 Granulocytes # Neutrophils # 3.5 Lymphocytes # 1.8 Monocytes # 0.7 Eosinophils # 0.4 Basophils # 0.0 Nucleated Red Blood 0.0 Cells # Sodium Level 140 Potassium Level 4.5 Chloride Level 112 H Carbon Dioxide Level 20 L Anion Gap 8 Blood Urea Nitrogen 39 H Creatinine 1.68 H Est Glomerular Filtrat Rate mL/min Glucose Level 118 Calcium Level 8.6 Phosphorus Level 4.7 Magnesium Level 1.6 L Thyroid Stimulating 0.522 Hormone (TSH) Test 01/04/19 09:04 01/04/19 12:42 01/04/19 13:00 Bedside Glucose 88 104 Vancomycin Level 9.1 L Trough Medications Medication Current Medications IV Flush (NS 3 ml) 3 ml PER PROTOCOL IV ; Start 12/31/18 at 07:30 Ondansetron HCl (Zofran Inj) 4 mg Q6H PRN IV NAUSEA/VOMITING; Start 12/31/18 at 07:30 Acetaminophen (Tylenol Tab) 650 mg Q6H PRN PO .PAIN 1-3 OR TEMP Last administered on 01/04/19at 10:54; Admin Dose 650 MG; Start 12/31/18 at 07:30 Acetaminophen/ Hydrocodone Bitart ([place] (5/325)) 1 tab Q6H PRN PO .MOD PAIN 4- 6; Start 12/31/18 at 07:30 Morphine Sulfate (morphine) 2 mg Q4H PRN IV .SEVERE PAIN 7-10 Last administered on 12/31/18at 21:02; Admin Dose 2 MG; Start 12/31/18 at 07:30 Docusate Sodium (Colace) 100 mg Q12H PRN PO .CONSTIPATION; Start 12/31/18 at 07:30 Magnesium Hydroxide (Milk Of Mag) 30 ml DAILY PRN PO .CONSTIPATION; Start 12/31/18 at 07:30 Lorazepam (Ativan) 0.5 mg Q6H PRN IV ANXIETY; Start 12/31/18 at 07:30 Albuterol/ Ipratropium (Duoneb) 3 ml Q4H RESP THERAPY PRN HHN SHORTNESS OF BREATH; Start 12/31/18 at 07:30 Hydralazine HCl (Apresoline) 10 mg Q6H PRN IV ELEVATED BLOOD PRESSURE; Start 12/31/18 at 07:30 Nitroglycerin (Nitroglycerin (Sl Tab) 0.4 Mg) 1 tab Q5M PRN SL ANGINA; Start 12/31/18 at 07:30 Cholecalciferol (Vitamin D) 1,000 unit DAILY PO Last administered on 01/04/19 09:10; Admin Dose 1,000 UNIT; Start 12/31/18 at 09:00 Pantoprazole (Protonix Tab) 40 mg DAILY PO Last administered on 01/04/19 09:10; Admin Dose 40 MG; Start 12/31/18 at 09:00 Vancomycin HCl (Vanco Iv Per Pharmacy) VANCOMYCIN PER PHARMACY PER PROTOCOL XX ; Start 12/31/18 at 11:00 Lisinopril (Zestril) 2.5 mg DAILY PO Last administered on 01/03/19 08:47; Admin Dose 2.5 MG; Start 01/01/19 at 09:00 Atorvastatin Calcium (Lipitor) 40 mg DAILY@21 PO Last administered on 01/03/19 20:50; Admin Dose 40 MG; Start 12/31/18 at 21:00 Vancomycin HCl 250 ml @ 125 mls/hr Q48H IVPB Last administered on 01/04/19 14:22; Admin Dose 125 MLS/HR; Start 01/02/19 at 13:30; Stop 01/04/19 at 16:30 Collagenase (Santyl) 1 applic DAILY TOP Last administered on 01/03/19 08:49; Admin Dose 1 APPLIC; Start 12/31/18 at 19:30 Sodium Hypochlorite (Dakins Diluted (40)) 1 applic BID TP Last administered on 01/04/19 09:11; Admin Dose 1 APPLIC; Start 01/01/19 at 12:00 Diagnostic Test (Pha) (Accu-Chek) 1 02 XX ; Start 01/03/19 at 02:00 Insulin Aspart (Novolog Insulin Pen) NOVOLOG *MILD* ALGORITHM WITH MEALS BEDTIME SC Last administered on 01/03/19at 21:21; Admin Dose 1 UNIT; Start 01/02/19 at 11:40 Metoprolol Tartrate (Lopressor) 50 mg BID PO Last administered on 01/03/19at 20:51; Admin Dose 50 MG; Start 01/02/19 at 21:00 Lactobacillus Acidophilus/ Rhamnosus (Culturelle) 1 cap BID PO Last administered on 01/04/19at 09:10; Admin Dose 1 CAP; Start 01/02/19 at 10:30 Miscellaneous Information 1 ea NOTE XX ; Start 01/02/19 at 11:00 Glucose (Glutose) 15 gm Q15M PRN PO DECREASED GLUCOSE; Start 01/02/19 at 11:00 Glucose (Glutose) 22.5 gm Q15M PRN PO DECREASED GLUCOSE; Start 01/02/19 at 11:00 Dextrose (D50w Syringe) 25 ml Q15M PRN IV DECREASED GLUCOSE; Start 01/02/19 at 11:00 Dextrose (D50w Syringe) 50 ml Q15M PRN IV DECREASED GLUCOSE; Start 01/02/19 at 11:00 Glucagon (Glucagen) 1 mg Q15M PRN IM DECREASED GLUCOSE; Start 01/02/19 at 11:00 Glucose (Glutose) 15 gm Q15M PRN BUCCAL DECREASED GLUCOSE; Start 01/02/19 at 11:00 Meropenem/Sodium Chloride 50 ml @ 100 mls/hr Q12H IVPB Last administered on 01/04/19at 06:00; Admin Dose 100 MLS/HR; Start 01/02/19 at 18:30 Apixaban (Eliquis) 2.5 mg BID PO ; Start 01/05/19 at 09:00 Vancomycin HCl 1.25 gm/Sodium Chloride 250 ml @ 83.333 mls/ hr Q48H IVPB ; Start 01/06/19 at 12:00 GIANNI RANGEL MD Jan 04, 2019 16:09
--- NOTE | 2019-01-04 16:42 | DS ---
Date/Time of Note Date/Time of Note DATE: 01/04/19 TIME: 16:32 Discharge Summary Admission/Discharge Info Admit Date/Time Dec 31, 2018 at 00:35 Discharge Date/Time Patient Condition: Stable Consults Gini Colón [place] Procedures MRI Foot IMPRESSION: Mild bone marrow edema in the fourth toe proximal phalanx which could represent early osteomyelitis or nonspecific stress reaction. Correlate for infection in that area. Moderate soft tissue edema without evidence of abscess, suggesting cellulitis. Moderate to advance polyarticular arthrosis, predominately involving the tars ometatarsal joints, and the first MTP joint where there is also hallux valgus deformity. 2D echo 2D echo Conclusions: Normal left ventricular systolic function. Normal left ventricular cavity size. Sigmoid septum. Ejection fraction is visually estimated at 65 %. Abnormal Diastolic Function. Normal right ventricular size. Normal right ventricular systolic function. There is moderate enlargement of left atrium. The right atrium is normal in size. Mild mitral valve regurgitation. Mild aortic stenosis. Mild aortic valve regurgitation. The estimated Peak RVSP is 42 mmHg. There is mild to moderate tricuspid regurgitation. Normal pericardium with no significant pericardial effusion. Cultures/ Prelim driscoll-sensitive Corynebacterium species and GNR) and blood cx (NGTD) weekly CBC, CMP, and ESR while on IV abx Hx of Present Illness 88-year-old female admitted with nonhealing wound of her foot. 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 Had angioplasty a few weeks back. Scheduled for endarterectomy next week. In the meantime was seen by cardiology for perioperative risk stratification. Please see his notes for details. Essentially patient needs surgery and may proceed forward to surgery from medical management. Risk obvious but may proceed. In the meantime patient to continue antibiotics via PICC. Meropenem 500mg daily/ pharmacy adjusting dose. Home health arranged. Patient to go home and call vascular for surgical time. Additionally seen for new onset A fib. We have started her on Eliquis which will need to be discontinued prior to surgery. 1. Lwr ext Ulcer/ OM; sp mri; sp picc. home on ertapenem tomorrow-unable to provide home health till Monday. 2. A Fib 3. CKD 4. DM II 5. Anemia 6. Htn 7. Ftt; home health/ pt/ safety 8. PAD; restenosed rt rca; surgery sometime next week. 9. Valvular heart disease; mild / MR/ TR 10. Metabolic syndrome Home Meds Reported Medications Aspirin* (Aspirin* EC) 81 Mg Tablet.dr, 81 MG PO DAILY, TAB 12/31/18 Alendronate Sodium* (Alendronate Sodium*) 40 Mg Tablet, 70 MG PO weekly, #30 TAB 12/31/18 Clopidogrel Bisulfate (Clopidogrel) 75 Mg Tablet, 75 MG PO DAILY, #30 TAB 12/31/18 Pantoprazole* (Pantoprazole*) 40 Mg Tablet.dr, 40 MG PO DAILY, TAB 12/31/18 Pravastatin Sodium (Pravachol) 20 Mg Tablet, 20 MG PO DAILY, TAB 12/31/18 Metoprolol Tartrate* (Lopressor*) 25 Mg Tablet, 25 MG PO BID, #60 TAB 12/31/18 [[facility] nonaspirin ] No Conflict Check, 500 MG PO Q6 PRN for PAIN 12/31/18 Alendronate Sodium* (Fosamax*) 70 Mg Tablet, 70 MG PO Q7D, #4 TAB 12/07/18 Pravastatin Sodium* (Pravastatin Sodium*) 80 Mg Tablet, 80 MG PO HS, TAB 12/07/18 Pravastatin Sodium* (Pravastatin Sodium*) 20 Mg Tablet, 20 MG PO DAILY, TAB 12/07/18 Pantoprazole* (Protonix*) 40 Mg Tablet.dr, 40 MG PO DAILY, TAB 12/07/18 Clopidogrel Bisulfate* (Clopidogrel Bisulfate*) 75 Mg Tablet, 75 MG PO DAILY, #30 TAB 12/07/18 Acetaminophen* (Tylophen*) 500 Mg Capsule, 1000 MG PO Q6H PRN for PAIN LEVEL 1- 3, TAB 12/07/18 Aspirin* (Aspirin* EC) 81 Mg Tablet.dr, 81 MG PO DAILY, TAB 12/07/18 Cholecalciferol* (Vitamin D3*) 1,000 Unit Tablet, 1000 UNIT PO DAILY, TAB 12/07/18 Metoprolol Tartrate* (Lopressor*) 25 Mg Tab, 25 MG PO BID, #60 TAB 12/07/18 Lisinopril* (Lisinopril*) 2.5 Mg Tablet, 2.5 MG PO DAILY, #30 TAB 12/07/18 Primary Care Provider Not On Staff Doctor Time spent on discharge: > 30 minutes Pending Labs Laboratory Tests Test 01/03/19 17:28 01/03/19 20:55 01/04/19 01:56 01/04/19 04:40 Bedside 137 196 142 Glucose mg/dL (70-220) mg/dL (70-220) mg/dL (70-220) White Blood 6.5 Count 10^3/ul (4.8-1 0.8) Red Blood 3.29 Count 10^6/ul (4.20- 5.40) Hemoglobin 9.2 g/dl (12.0-16. 0) Hematocrit 29.7 % (37.0-47.0) Mean 90.3 Corpuscular fl (82.0-101.0 Volume ) Mean 28.0 Corpuscular pg (29.0-33.0) Hemoglobin Mean 31.0 Corpuscular g/dl (32.0-37. Hemoglobin Conc 0) ent Red Cell 14.1 Distribution % (11.5-14.5) Width Platelet Count 253 10^3/UL (140-4 15) Mean Platelet 9.7 Volume fl (7.4-10.4) Immature 0.300 Granulocytes % % (0.001-0.429 ) Neutrophils % 54.2 % (39.0-77.0) Lymphocytes % 28.1 % (15.0-51.0) Monocytes % 11.0 % (0.0-11.0) Eosinophils % 5.8 % (0.0-7.0) Basophils % 0.6 % (0.0-2.0) Nucleated Red 0.0 Blood Cells % /100WBC (0.0-0 .0) Immature 0.020 Granulocytes # 10^3/ul (0.0-0 .031) Neutrophils # 3.5 10^3/ul (1.6-7 .5) Lymphocytes # 1.8 10^3/ul (0.8-2 .9) Monocytes # 0.7 10^3/ul (0.3-0 .9) Eosinophils # 0.4 10^3/ul (0.0-0 .5) Basophils # 0.0 10^3/ul (0.0-0 .1) Nucleated Red 0.0 Blood Cells # 10^3/ul (0.0-0 .0) Sodium Level 140 mmol/L (135-14 4) Potassium 4.5 Level mmol/L (3.5-5. 1) Chloride Level 112 mmol/L (97-110 ) Carbon Dioxide 20 Level mmol/L (21-31) Anion Gap 8 (5-13) Blood Urea 39 Nitrogen mg/dl (7-20) Creatinine 1.68 mg/dl (0.44-1. 00) Est Glomerular mL/min (>60) Filtrat Rate mL/min Glucose Level 118 mg/dl (70-220) Calcium Level 8.6 mg/dl (8.4-10. 2) Phosphorus 4.7 Level mg/dl (2.5-4.9 ) Magnesium 1.6 Level mg/dl (1.7-2.5 ) Thyroid 0.522 Stimulating MIU/L (0.465-4 Hormone (TSH) .680) Test 01/04/19 09:04 01/04/19 12:42 01/04/19 13:00 Bedside 88 104 Glucose mg/dL (70-220) mg/dL (70-220) Vancomycin 9.1 Level Trough ug/ml (10.0-20 .0) CONY MALONEY MD Jan 04, 2019 16:42
--- NOTE | 2019-01-04 16:44 | PN ---
Date/Time of Note Date/Time of Note DATE: 01/04/19 TIME: 16:42 Assessment/Plan VTE Prophylaxis Risk score (from [facility] [place])>0 risk: 4 SCD applied (from [facility] [place]): Yes SCD contraindicated: low risk/ambulating Pharmacological prophylaxis: NA/contraindicated Pharm contraindication: surgical contra Lines/Catheters IV Catheter Type (from [facility]): Peripheral IV Urinary Cath still in place: No Assessment/Plan Hospital Course A/P 1. Lwr ext Ulcer/ OM; sp mri; sp picc. home tomorrow 2. A Fib 3. CKD 4. DM II 5. Anemia 6. Htn 7. Ftt; home health/ pt/ safety 8. PAD; restenosed rt rca; surgery sometime next week. 9. Valvular heart disease; mild / MR/ TR 10. Metabolic syndrome S: Status post PICC line. Home arrangements being settled. Unable to provide home health until Monday. Therefore will discharge tomorrow/Monday. O: vss PE no pallor/ jvd reg s1s2 no mrg ctab bs+ nt nd no r r g no edema; diminished pulses; picc c/d/i Result Diagram: 01/04/19 0440 01/04/19 0440 Results 24hrs Laboratory Tests Test 01/03/19 17:28 01/03/19 20:55 01/04/19 01:56 01/04/19 04:40 Bedside Glucose 137 196 142 White Blood Count 6.5 Red Blood Count 3.29 L Hemoglobin 9.2 L Hematocrit 29.7 L Mean Corpuscular 90.3 Volume Mean Corpuscular 28.0 L Hemoglobin Mean Corpuscular 31.0 L Hemoglobin Concent Red Cell 14.1 Distribution Width Platelet Count 253 Mean Platelet Volume 9.7 Immature 0.300 Granulocytes % Neutrophils % 54.2 Lymphocytes % 28.1 Monocytes % 11.0 Eosinophils % 5.8 Basophils % 0.6 Nucleated Red Blood 0.0 Cells % Immature 0.020 Granulocytes # Neutrophils # 3.5 Lymphocytes # 1.8 Monocytes # 0.7 Eosinophils # 0.4 Basophils # 0.0 Nucleated Red Blood 0.0 Cells # Sodium Level 140 Potassium Level 4.5 Chloride Level 112 H Carbon Dioxide Level 20 L Anion Gap 8 Blood Urea Nitrogen 39 H Creatinine 1.68 H Est Glomerular Filtrat Rate mL/min Glucose Level 118 Calcium Level 8.6 Phosphorus Level 4.7 Magnesium Level 1.6 L Thyroid Stimulating 0.522 Hormone (TSH) Test 01/04/19 09:04 01/04/19 12:42 01/04/19 13:00 Bedside Glucose 88 104 Vancomycin Level 9.1 L Trough Exam/Review of Systems Exam Vitals Vital Signs Date Temp Pulse Resp B/P (MAP) Pulse Ox O2 O2 Flow FiO2 Time Delivery Rate 01/04/19 97.8 83 18 101/55 92 Room Air 14:45 (70) 01/01/19 21 22:08 Intake and Output 01/03/19 01/03/19 01/04/19 1515:00 23:00 07:00 IntakeIntake Total 320 ml 490 ml 200 ml OutputOutput Total 650 ml 550 ml BalanceBalance -330 ml 490 ml -350 ml Results Results 24hrs Laboratory Tests Test 01/03/19 17:28 01/03/19 20:55 01/04/19 01:56 01/04/19 04:40 Bedside Glucose 137 196 142 White Blood Count 6.5 Red Blood Count 3.29 L Hemoglobin 9.2 L Hematocrit 29.7 L Mean Corpuscular 90.3 Volume Mean Corpuscular 28.0 L Hemoglobin Mean Corpuscular 31.0 L Hemoglobin Concent Red Cell 14.1 Distribution Width Platelet Count 253 Mean Platelet Volume 9.7 Immature 0.300 Granulocytes % Neutrophils % 54.2 Lymphocytes % 28.1 Monocytes % 11.0 Eosinophils % 5.8 Basophils % 0.6 Nucleated Red Blood 0.0 Cells % Immature 0.020 Granulocytes # Neutrophils # 3.5 Lymphocytes # 1.8 Monocytes # 0.7 Eosinophils # 0.4 Basophils # 0.0 Nucleated Red Blood 0.0 Cells # Sodium Level 140 Potassium Level 4.5 Chloride Level 112 H Carbon Dioxide Level 20 L Anion Gap 8 Blood Urea Nitrogen 39 H Creatinine 1.68 H Est Glomerular Filtrat Rate mL/min Glucose Level 118 Calcium Level 8.6 Phosphorus Level 4.7 Magnesium Level 1.6 L Thyroid Stimulating 0.522 Hormone (TSH) Test 01/04/19 09:04 01/04/19 12:42 01/04/19 13:00 Bedside Glucose 88 104 Vancomycin Level 9.1 L Trough Medications Medication Current Medications IV Flush (NS 3 ml) 3 ml PER PROTOCOL IV ; Start 12/31/18 at 07:30 Ondansetron HCl (Zofran Inj) 4 mg Q6H PRN IV NAUSEA/VOMITING; Start 12/31/18 at 07:30 Acetaminophen (Tylenol Tab) 650 mg Q6H PRN PO .PAIN 1-3 OR TEMP Last administered on 01/04/19at 10:54; Admin Dose 650 MG; Start 12/31/18 at 07:30 Acetaminophen/ Hydrocodone Bitart ([place] (5/325)) 1 tab Q6H PRN PO .MOD PAIN 4- 6; Start 12/31/18 at 07:30 Morphine Sulfate (morphine) 2 mg Q4H PRN IV .SEVERE PAIN 7-10 Last administered on 12/31/18at 21:02; Admin Dose 2 MG; Start 12/31/18 at 07:30 Docusate Sodium (Colace) 100 mg Q12H PRN PO .CONSTIPATION; Start 12/31/18 at 07:30 Magnesium Hydroxide (Milk Of Mag) 30 ml DAILY PRN PO .CONSTIPATION; Start 12/31/18 at 07:30 Lorazepam (Ativan) 0.5 mg Q6H PRN IV ANXIETY; Start 12/31/18 at 07:30 Albuterol/ Ipratropium (Duoneb) 3 ml Q4H RESP THERAPY PRN HHN SHORTNESS OF BREATH; Start 12/31/18 at 07:30 Hydralazine HCl (Apresoline) 10 mg Q6H PRN IV ELEVATED BLOOD PRESSURE; Start 12/31/18 at 07:30 Nitroglycerin (Nitroglycerin (Sl Tab) 0.4 Mg) 1 tab Q5M PRN SL ANGINA; Start 12/31/18 at 07:30 Cholecalciferol (Vitamin D) 1,000 unit DAILY PO Last administered on 01/04/19at 09:10; Admin Dose 1,000 UNIT; Start 12/31/18 at 09:00 Pantoprazole (Protonix Tab) 40 mg DAILY PO Last administered on 01/04/19at 09:10; Admin Dose 40 MG; Start 12/31/18 at 09:00 Vancomycin HCl (Vanco Iv Per Pharmacy) VANCOMYCIN PER PHARMACY PER PROTOCOL XX ; Start 12/31/18 at 11:00 Lisinopril (Zestril) 2.5 mg DAILY PO Last administered on 01/03/19at 08:47; Admin Dose 2.5 MG; Start 01/01/19 at 09:00 Atorvastatin Calcium (Lipitor) 40 mg DAILY@21 PO Last administered on 01/03/19at 20:50; Admin Dose 40 MG; Start 12/31/18 at 21:00 Collagenase (Santyl) 1 applic DAILY TOP Last administered on 01/03/19 08:49; Admin Dose 1 APPLIC; Start 12/31/18 at 19:30 Sodium Hypochlorite (Dakins Diluted ()) 1 applic BID TP Last administered on 01/04/19at 09:11; Admin Dose 1 APPLIC; Start 01/01/19 at 12:00 Diagnostic Test (Pha) (Accu-Chek) 1 ea 02 XX ; Start 01/03/19 at 02:00 Insulin Aspart (Novolog Insulin Pen) NOVOLOG *MILD* ALGORITHM WITH MEALS BEDTIME SC Last administered on 01/03/19 21:21; Admin Dose 1 UNIT; Start 01/02/19 at 11:40 Metoprolol Tartrate (Lopressor) 50 mg BID PO Last administered on 01/03/19at 20:51; Admin Dose 50 MG; Start 01/02/19 at 21:00 Lactobacillus Acidophilus/ Rhamnosus (Culturelle) 1 cap BID PO Last administered on 01/04/19at 09:10; Admin Dose 1 CAP; Start 01/02/19 at 10:30 Miscellaneous Information 1 ea NOTE XX ; Start 01/02/19 at 11:00 Glucose (Glutose) 15 gm Q15M PRN PO DECREASED GLUCOSE; Start 01/02/19 at 11:00 Glucose (Glutose) 22.5 gm Q15M PRN PO DECREASED GLUCOSE; Start 01/02/19 at 11:00 Dextrose (D50w Syringe) 25 ml Q15M PRN IV DECREASED GLUCOSE; Start 01/02/19 at 11:00 Dextrose (D50w Syringe) 50 ml Q15M PRN IV DECREASED GLUCOSE; Start 01/02/19 at 11:00 Glucagon (Glucagen) 1 mg Q15M PRN IM DECREASED GLUCOSE; Start 01/02/19 at 11:00 Glucose (Glutose) 15 gm Q15M PRN BUCCAL DECREASED GLUCOSE; Start 01/02/19 at 11:00 Meropenem/Sodium Chloride 50 ml @ 100 mls/hr Q12H IVPB Last administered on 01/04/19at 06:00; Admin Dose 100 MLS/HR; Start 01/02/19 at 18:30 Apixaban (Eliquis) 2.5 mg BID PO ; Start 01/05/19 at 09:00 Vancomycin HCl 1.25 gm/Sodium Chloride 250 ml @ 83.333 mls/ hr Q48H IVPB ; Start 01/06/19 at 12:00 CONY MALONEY MD Jan 04, 2019 16:44
--- NOTE | 2019-01-04 16:48 | PDOCDIS ---
Discharge Instructions CONDITION [id number] Patient Condition: [id number] Stable HOME CARE INSTRUCTIONS: [id number] Diet Instructions: [id number] y Rest between Activity Avoid heavy lifting Do not Drive Avoid Heavy Housework [id number] Bathing Restrictions: [id number] Tub Bath FOLLOW UP/APPOINTMENTS Follow-up Plan Dr Allen 1wk Dr Arriaza & Dr [place]aclava 2wks CONY MALONEY MD Jan 04, 2019 16:48
[2019-01-04] MEDS ORDERED: ACET325T33 PO (16:51)
[2019-01-04] MEDS ORDERED: METO-429 PO (16:51)
[2019-01-04] MEDS ORDERED: APIX5TAB PO (16:51)
[2019-01-04] MEDS ORDERED: LACT1CAP28 PO (16:51)
[2019-01-04] MEDS ORDERED: SODI473S5 TP (16:51)
[2019-01-04] MEDS ORDERED: SAN30GM TOP (16:51)
[2019-01-04] MEDS ORDERED: HYDR-3601 PO (16:51)
[2019-01-04] MEDS ORDERED: LEVOFLOXACIN 500 MG TAB PO SCH (19:30)
[2019-01-04 19:35] VITALS: BP 94/54; PULSE 86; RESP 20
[2019-01-04] MEDS ORDERED: LEVO500T48 PO (21:02)
[2019-01-04] MEDS: ATORVASTATIN 40 MG TAB PO SCH (21:33)
[2019-01-05 02:00] VITALS: BP 112/72; PULSE 103; RESP 20
[2019-01-05] MEDS: ACCU-CHEK XX SCH (02:00)
[2019-01-05] MEDS: MEROPENEM 1 GM/50ML(PMX) 50 ML IVPB SCH (06:48)
[2019-01-05 07:29] VITALS: BP 117/59; PULSE 105; RESP 15
[2019-01-05] MEDS: INSULIN ASPART [NOVOLOG] 3 ML PEN SC SCH ×2 (07:50→11:40)
[2019-01-05] MEDS: CHOLECALCIFEROL 1,000 UNIT TAB PO SCH (08:30)
[2019-01-05] MEDS: PANTOPRAZOLE (EC) 40 MG TAB PO SCH (08:30)
[2019-01-05] MEDS: LACTOBACILLUS RHAMNOSUS CAP PO SCH (08:30)
[2019-01-05] MEDS: METOPROLOL 50 MG TAB PO SCH (08:31)
[2019-01-05] MEDS: LISINOPRIL 5 MG TAB PO SCH (08:32)
[2019-01-05] MEDS: DAKINS 0.0125%(1/40) 473 ML SOLUTION TP SCH (08:56)
[2019-01-05] MEDS: COLLAGENASE 5 GM (UD JAR) TOP SCH (08:56)
[2019-01-05] MEDS ORDERED: APIXABAN 5 MG TABLET PO SCH (09:00)
--- NOTE | 2019-01-05 10:00 | CONS ---
Assessment/Plan Assessment/Plan Assessment/Plan (Daily) Preoperative cardiac risk stratification Peripheral arterial disease depending common femoral endarterectomy Critical limb ischemia with nonhealing ulcer Atrial fibrillation Preserved left ventricular ejection fraction Mild aortic valve stenosis Tricuspid and mitral valve regurgitation Please refer to consult note dated 01/02/2019 discussing preoperative cardiac risk stratification. Of note, patient with atrial fibrillation with multiple risk factors for thromboembolic events and should be on anticoagulation. She is currenttly now on eiqluis sw family Continue beta-juan as tolerated Consultation Date/Type/Reason Admit Date/Time Dec 31, 2018 at 00:35 Initial Consult Date 01/02/19 Type of Consult Cardiology Requesting Provider: MARGARITA ROJAS Date/Time of Note DATE: 01/05/19 TIME: 09:58 24 HR Interval Summary Free Text/Dictation the patient stable overngight Exam/Review of Systems Vital Signs Vitals Vital Signs Date Temp Pulse Resp B/P (MAP) Pulse Ox O2 O2 Flow FiO2 Time Delivery Rate 01/05/19 98.3 105 15 117/59 96 Room Air 07:29 (78) 01/01/19 21 22:08 Intake and Output 01/04/19 01/04/19 01/05/19 1515:00 23:00 07:00 IntakeIntake Total 480 ml 900 ml 660 ml BalanceBalance 480 ml 900 ml 660 ml Labs Result Diagram: 01/05/19 0452 01/05/19 0452 Results 24hrs Laboratory Tests Test 01/04/19 12:42 01/04/19 13:00 01/04/19 17:52 01/04/19 21:37 Bedside Glucose 104 107 197 Vancomycin Level 9.1 L Trough Test 01/05/19 02:38 01/05/19 04:52 01/05/19 08:55 Bedside Glucose 115 104 White Blood Count 8.3 # Red Blood Count 3.74 L Hemoglobin 10.4 L Hematocrit 34.2 L Mean Corpuscular 91.4 Volume Mean Corpuscular 27.8 L Hemoglobin Mean Corpuscular 30.4 L Hemoglobin Concent Red Cell 14.0 Distribution Width Platelet Count 260 Mean Platelet Volume 9.8 Immature 0.200 Granulocytes % Neutrophils % 57.6 Lymphocytes % 28.3 Monocytes % 8.0 Eosinophils % 5.3 Basophils % 0.6 Nucleated Red Blood 0.0 Cells % Immature 0.020 Granulocytes # Neutrophils # 4.8 Lymphocytes # 2.3 Monocytes # 0.7 Eosinophils # 0.4 Basophils # 0.1 Nucleated Red Blood 0.0 Cells # Sodium Level 140 Potassium Level 5.2 H Chloride Level 108 Carbon Dioxide Level 23 Anion Gap 9 Blood Urea Nitrogen 41 H Creatinine 1.62 H Est Glomerular Filtrat Rate mL/min Glucose Level 115 Calcium Level 9.1 Medications Medications Current Medications IV Flush (NS 3 ml) 3 ml PER PROTOCOL IV ; Start 12/31/18 at 07:30 Ondansetron HCl (Zofran Inj) 4 mg Q6H PRN IV NAUSEA/VOMITING; Start 12/31/18 at 07:30 Acetaminophen (Tylenol Tab) 650 mg Q6H PRN PO .PAIN 1-3 OR TEMP Last administered on 01/04/19at 10:54; Admin Dose 650 MG; Start 12/31/18 at 07:30 Acetaminophen/ Hydrocodone Bitart ([place] (5/325)) 1 tab Q6H PRN PO .MOD PAIN 4- 6 Last administered on 01/05/19at 08:30; Admin Dose 1 TAB; Start 12/31/18 at 07:30 Morphine Sulfate (morphine) 2 mg Q4H PRN IV .SEVERE PAIN 7-10 Last administered on 12/31/18at 21:02; Admin Dose 2 MG; Start 12/31/18 at 07:30 Docusate Sodium (Colace) 100 mg Q12H PRN PO .CONSTIPATION; Start 12/31/18 at 07:30 Magnesium Hydroxide (Milk Of Mag) 30 ml DAILY PRN PO .CONSTIPATION; Start 12/31/18 at 07:30 Lorazepam (Ativan) 0.5 mg Q6H PRN IV ANXIETY; Start 12/31/18 at 07:30 Albuterol/ Ipratropium (Duoneb) 3 ml Q4H RESP THERAPY PRN HHN SHORTNESS OF BREATH; Start 12/31/18 at 07:30 Hydralazine HCl (Apresoline) 10 mg Q6H PRN IV ELEVATED BLOOD PRESSURE; Start 12/31/18 at 07:30 Nitroglycerin (Nitroglycerin (Sl Tab) 0.4 Mg) 1 tab Q5M PRN SL ANGINA; Start 12/31/18 at 07:30 Cholecalciferol (Vitamin D) 1,000 unit DAILY PO Last administered on 01/05/19 08:30; Admin Dose 1,000 UNIT; Start 12/31/18 at 09:00 Pantoprazole (Protonix Tab) 40 mg DAILY PO Last administered on 01/05/19 08:30; Admin Dose 40 MG; Start 12/31/18 at 09:00 Lisinopril (Zestril) 2.5 mg DAILY PO Last administered on 01/05/19 08:32; Admin Dose 2.5 MG; Start 01/01/19 at 09:00 Atorvastatin Calcium (Lipitor) 40 mg DAILY@21 PO Last administered on 01/04/19 21:33; Admin Dose 40 MG; Start 12/31/18 at 21:00 Collagenase (Santyl) 1 applic DAILY TOP Last administered on 01/05/19 08:56; Admin Dose 1 APPLIC; Start 12/31/18 at 19:30 Sodium Hypochlorite (Dakins Diluted (1/40)) 1 applic BID TP Last administered on 01/05/19 08:56; Admin Dose 1 APPLIC; Start 01/01/19 at 12:00 Diagnostic Test (Pha) (Accu-Chek) 1 ea 02 XX ; Start 01/03/19 at 02:00 Insulin Aspart (Novolog Insulin Pen) NOVOLOG *MILD* ALGORITHM WITH MEALS BEDTIME SC Last administered on 01/04/19 21:43; Admin Dose 1 UNIT; Start 01/02 at 11:40 Metoprolol Tartrate (Lopressor) 50 mg BID PO Last administered on 01/05/19 08:31; Admin Dose 50 MG; Start 01/02/19 at 21:00 Lactobacillus Acidophilus/ Rhamnosus (Culturelle) 1 cap BID PO Last administered on 01/05/19 08:30; Admin Dose 1 CAP; Start 01/02/19 at 10:30 Miscellaneous Information 1 ea NOTE XX ; Start 01/02/19 at 11:00 Glucose (Glutose) 15 gm Q15M PRN PO DECREASED GLUCOSE; Start 01/02/19 at 11:00 Glucose (Glutose) 22.5 gm Q15M PRN PO DECREASED GLUCOSE; Start 01/02/19 at 11:00 Dextrose (D50w Syringe) 25 ml Q15M PRN IV DECREASED GLUCOSE; Start 01/02/19 at 11:00 Dextrose (D50w Syringe) 50 ml Q15M PRN IV DECREASED GLUCOSE; Start 01/02/19 at 11:00 Glucagon (Glucagen) 1 mg Q15M PRN IM DECREASED GLUCOSE; Start 01/02/19 at 11:00 Glucose (Glutose) 15 gm Q15M PRN BUCCAL DECREASED GLUCOSE; Start 01/02/19 at 11:00 Meropenem/Sodium Chloride 50 ml @ 100 mls/hr Q12H IVPB Last administered on 01/05/19at 06:48; Admin Dose 100 MLS/HR; Start 01/02/19 at 18:30 Apixaban (Eliquis) 2.5 mg BID PO Last administered on 01/05/19 08:31; Admin Dose 2.5 MG; Start 01/05/19 at 09:00 IV Flush (NS 10 ml) 10 ml PRN PRN IV IV PROTOCOL Last administered on 01/05/19 06:48; Admin Dose 10 ML; Start 01/04/19 at 17:30 Levofloxacin (Levaquin) 500 mg Q48H PO Last administered on 01/04/19at 21:31; Admin Dose 500 MG; Start 01/04/19 at 19:30 RAJINDER SILVER MD Jan 05, 2019 10:00
--- NOTE | 2019-01-05 10:11 | CONS ---
[facility] Name: Mary Brown Unit Number: [id number] Date of : 1930 Patient Status: Admitted Inpatient Attending Doctor: Duncan Rosa MD Edit: JAQUELINE JACKSON M.D. 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 Jackson. Consultation Date/Type/Reason Admit Date/Time Dec 31, 2018 at 00:35 Initial Consult Date 01/02/19 Type of Consult ID Requesting Provider: MARGARITA ROJAS Date/Time of Note DATE: 01/05/19 TIME: 10:07 24 HR Interval Summary Free Text/Dictation Patient is planned for d/c home today after antibiotic infusion. Patient to f/u in our office w/in 2 weeks of d/c. She has remained afebrile, wbc 8.3 Patient denies current pain, but reports pain to palpation of ble. Denies fever, chills, sweats, sob, cp, n/v/d, dysuria, pruritis, rash. Exam/Review of Systems Exam Vitals Vital Signs Date Temp Pulse Resp B/P (MAP) Pulse Ox O2 O2 Flow FiO2 Time Delivery Rate 01/05/19 98.3 105 15 117/59 96 Room Air 07:29 (78) 01/01/19 21 22:08 Allergies Coded Allergies Penicillins (Verified Allergy, Unknown, rash, 12/06/18) Intake and Output 01/04/19 01/04/19 01/05/19 1515:00 23:00 07:00 IntakeIntake Total 480 ml 900 ml 660 ml BalanceBalance 480 ml 900 ml 660 ml Exam Constitutional: alert, oriented, well developed, other (sitting up in bed with family at bedside) Psych: no complaints, nl mood/affect Head: normocephalic, atraumatic Eyes: nl conjunctiva, nl lids ENMT: nl external ears & nose, nl nasal mucosa & septum (no thrush) Neck: supple Respiratory: clear to auscultation, normal air movement Cardiovascular: irregular rhythm, systolic murmur Gastrointestinal: soft, non-tender Extremities: edema (trace) Neurological: nl mental status, nl speech Skin: nl turgor, other (R foot wrapped with Kerlix c/d/i - reviewed nsg notes/pics) Results Result Diagram: 01/05/19 0452 01/05/19 0452 Results 24hrs Laboratory Tests Test 01/04/19 12:42 01/04/19 13:00 01/04/19 17:52 01/04/19 21:37 Bedside Glucose 104 107 197 Vancomycin Level 9.1 L Trough Test 01/05/19 02:38 01/05/19 04:52 01/05/19 08:55 Bedside Glucose 115 104 White Blood Count 8.3 # Red Blood Count 3.74 L Hemoglobin 10.4 L Hematocrit 34.2 L Mean Corpuscular 91.4 Volume Mean Corpuscular 27.8 L Hemoglobin Mean Corpuscular 30.4 L Hemoglobin Concent Red Cell 14.0 Distribution Width Platelet Count 260 Mean Platelet Volume 9.8 Immature 0.200 Granulocytes % Neutrophils % 57.6 Lymphocytes % 28.3 Monocytes % 8.0 Eosinophils % 5.3 Basophils % 0.6 Nucleated Red Blood 0.0 Cells % Immature 0.020 Granulocytes # Neutrophils # 4.8 Lymphocytes # 2.3 Monocytes # 0.7 Eosinophils # 0.4 Basophils # 0.1 Nucleated Red Blood 0.0 Cells # Sodium Level 140 Potassium Level 5.2 H Chloride Level 108 Carbon Dioxide Level 23 Anion Gap 9 Blood Urea Nitrogen 41 H Creatinine 1.62 H Est Glomerular Filtrat Rate mL/min Glucose Level 115 Calcium Level 9.1 Imaging Imaging MRI R foot 12/31/18 IMPRESSION: Mild bone marrow edema in the fourth toe proximal phalanx which could represent early osteomyelitis or nonspecific stress reaction. Correlate for infection in that area. Moderate soft tissue edema without evidence of abscess, suggesting cellulitis. Moderate to advance polyarticular arthrosis, predominately involving the tarsometatarsal joints, and the first MTP joint where there is also hallux valg us deformity. CXR 01/04/19 IMPRESSION: 1. New right-sided PICC in satisfactory position. 2. Cardiomegaly with mild vascular congestion and small bilateral pleural effusions. Medications Medication Current Medications IV Flush (NS 3 ml) 3 ml PER PROTOCOL IV ; Start 12/31/18 at 07:30 Ondansetron HCl (Zofran Inj) 4 mg Q6H PRN IV NAUSEA/VOMITING; Start 12/31/18 at 07:30 Acetaminophen (Tylenol Tab) 650 mg Q6H PRN PO .PAIN 1-3 OR TEMP Last administered on 01/04/19at 10:54; Admin Dose 650 MG; Start 12/31/18 at 07:30 Acetaminophen/ Hydrocodone Bitart ([place] (5/325)) 1 tab Q6H PRN PO .MOD PAIN 4- 6 Last administered on 01/05/19at 08:30; Admin Dose 1 TAB; Start 12/31/18 at 07:30 Morphine Sulfate (morphine) 2 mg Q4H PRN IV .SEVERE PAIN 7-10 Last administered on 12/31/18at 21:02; Admin Dose 2 MG; Start 12/31/18 at 07:30 Docusate Sodium (Colace) 100 mg Q12H PRN PO .CONSTIPATION; Start 12/31/18 at 07:30 Magnesium Hydroxide (Milk Of Mag) 30 ml DAILY PRN PO .CONSTIPATION; Start 12/31/18 at 07:30 Lorazepam (Ativan) 0.5 mg Q6H PRN IV ANXIETY; Start 12/31/18 at 07:30 Albuterol/ Ipratropium (Duoneb) 3 ml Q4H RESP THERAPY PRN HHN SHORTNESS OF BREATH; Start 12/31/18 at 07:30 Hydralazine HCl (Apresoline) 10 mg Q6H PRN IV ELEVATED BLOOD PRESSURE; Start 12/31/18 at 07:30 Nitroglycerin (Nitroglycerin (Sl Tab) 0.4 Mg) 1 tab Q5M PRN SL ANGINA; Start 12/31/18 at 07:30 Cholecalciferol (Vitamin D) 1,000 unit DAILY PO Last administered on 01/05/19 08:30; Admin Dose 1,000 UNIT; Start 12/31/18 at 09:00 Pantoprazole (Protonix Tab) 40 mg DAILY PO Last administered on 01/05/19 08:30; Admin Dose 40 MG; Start 12/31/18 at 09:00 Lisinopril (Zestril) 2.5 mg DAILY PO Last administered on 01/05/19 08:32; Admin Dose 2.5 MG; Start 01/01/19 at 09:00 Atorvastatin Calcium (Lipitor) 40 mg DAILY@21 PO Last administered on 01/04/19 21:33; Admin Dose 40 MG; Start 12/31/18 at 21:00 Collagenase (Santyl) 1 applic DAILY TOP Last administered on 01/05/19 08:56; Admin Dose 1 APPLIC; Start 12/31/18 at 19:30 Sodium Hypochlorite (Dakins Diluted ()) 1 applic BID TP Last administered on 01/05/19 08:56; Admin Dose 1 APPLIC; Start 01/01/19 at 12:00 Diagnostic Test (Pha) (Accu-Chek) 1 ea 02 XX ; Start 01/03/19 at 02:00 Insulin Aspart (Novolog Insulin Pen) NOVOLOG *MILD* ALGORITHM WITH MEALS BEDTIME SC Last administered on 01/04/19 21:43; Admin Dose 1 UNIT; Start 01/02/19 at 11:40 Metoprolol Tartrate (Lopressor) 50 mg BID PO Last administered on 01/05/19 08:31; Admin Dose 50 MG; Start 01/02/19 at 21:00 Lactobacillus Acidophilus/ Rhamnosus (Culturelle) 1 cap BID PO Last administered on 01/05/19 08:30; Admin Dose 1 CAP; Start 01/02/19 at 10:30 Miscellaneous Information 1 ea NOTE XX ; Start 01/02/19 at 11:00 Glucose (Glutose) 15 gm Q15M PRN PO DECREASED GLUCOSE; Start 01/02/19 at 11:00 Glucose (Glutose) 22.5 gm Q15M PRN PO DECREASED GLUCOSE; Start 01/02/19 at 11:00 Dextrose (D50w Syringe) 25 ml Q15M PRN IV DECREASED GLUCOSE; Start 01/02/19 at 11:00 Dextrose (D50w Syringe) 50 ml Q15M PRN IV DECREASED GLUCOSE; Start 01/02/19 at 11:00 Glucagon (Glucagen) 1 mg Q15M PRN IM DECREASED GLUCOSE; Start 01/02/19 at 11:00 Glucose (Glutose) 15 gm Q15M PRN BUCCAL DECREASED GLUCOSE; Start 01/02/19 at 11:00 Meropenem/Sodium Chloride 50 ml @ 100 mls/hr Q12H IVPB Last administered on 01/05/19at 06:48; Admin Dose 100 MLS/HR; Start 01/02/19 at 18:30 Apixaban (Eliquis) 2.5 mg BID PO Last administered on 01/05/19at 08:31; Admin Dose 2.5 MG; Start 01/05/19 at 09:00 IV Flush (NS 10 ml) 10 ml PRN PRN IV IV PROTOCOL Last administered on 01/05/19at 06:48; Admin Dose 10 ML; Start 01/04/19 at 17:30 Levofloxacin (Levaquin) 500 mg Q48H PO Last administered on 01/04/19at 21:31; Admin Dose 500 MG; Start 01/04/19 at 19:30 TIAGO MARLOW NP Jan 05, 2019 10:10
--- NOTE | 2019-01-05 10:35 | PN ---
Date/Time of Note Date/Time of Note DATE: 01/05/19 TIME: 10:18 Assessment/Plan VTE Prophylaxis Risk score (from Ns)>0 risk: 3 SCD applied (from Nsg): Yes Pharmacological prophylaxis: apixaban Lines/Catheters IV Catheter Type (from Nrsg): PICC Line Central line still needed: Yes Urinary Cath still in place: No Assessment/Plan Assessment/Plan 1. 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 - ID on board and will continue on 6 weeks total of IV Ertapenem and PO Levaquin for treatment of early OM. Will need to follow up as outpatient. Weekly labs ordered - continue local wound care - HH on board 2. Severe PAD - h/o revascularization in the past - needs to follow up as outpatient with Dr. Allen given reocclusion of right femoral artery 3. Diabetes Mellitus type 2 - A1c noted - ISS and accuchecks 4. Chronic kidney disease - at baseline - renally dose all medications 5. Atrial fibrillation - Cardiology consultation appreciated. Continue on Eliquis and BB 6. HTN - stable - continue current medications 7. Anemia of chronic disease - stable - no need for transfusions at this time 8. Disposition - Stable for discharge after Meropenem dose today Result Diagram: 01/05/19 0452 01/05/19 0452 Results 24hrs Laboratory Tests Test 01/04/19 12:42 01/04/19 13:00 01/04/19 17:52 01/04/19 21:37 Bedside Glucose 104 107 197 Vancomycin Level 9.1 L Trough Test 01/05/19 02:38 01/05/19 04:52 01/05/19 08:55 Bedside Glucose 115 104 White Blood Count 8.3 # Red Blood Count 3.74 L Hemoglobin 10.4 L Hematocrit 34.2 L Mean Corpuscular 91.4 Volume Mean Corpuscular 27.8 L Hemoglobin Mean Corpuscular 30.4 L Hemoglobin Concent Red Cell 14.0 Distribution Width Platelet Count 260 Mean Platelet Volume 9.8 Immature 0.200 Granulocytes % Neutrophils % 57.6 Lymphocytes % 28.3 Monocytes % 8.0 Eosinophils % 5.3 Basophils % 0.6 Nucleated Red Blood 0.0 Cells % Immature 0.020 Granulocytes # Neutrophils # 4.8 Lymphocytes # 2.3 Monocytes # 0.7 Eosinophils # 0.4 Basophils # 0.1 Nucleated Red Blood 0.0 Cells # Sodium Level 140 Potassium Level 5.2 H Chloride Level 108 Carbon Dioxide Level 23 Anion Gap 9 Blood Urea Nitrogen 41 H Creatinine 1.62 H Est Glomerular Filtrat Rate mL/min Glucose Level 115 Calcium Level 9.1 Subjective 24 Hr Interval Summary Free Text/Dictation Patient doing well and denies any acute issues. No overnight events. Ready to go home today. Family at bedside and discussed plan of care. Exam/Review of Systems Exam Vitals Vital Signs Date Temp Pulse Resp B/P (MAP) Pulse Ox O2 O2 Flow FiO2 Time Delivery Rate 01/05/19 98.3 105 15 117/59 96 Room Air 07:29 (78) 01/01/19 21 22:08 Intake and Output 01/04/19 01/04/19 01/05/19 1515:00 23:00 07:00 IntakeIntake Total 480 ml 900 ml 660 ml BalanceBalance 480 ml 900 ml 660 ml Exam General: no acute distress. CVS: S1, S2, irregular rhythm. regular rate Lungs: clear bilaterally. diminished. no wheezing Abd: soft, nontender, nondistended. no rebound or guarding Ext: moving all extremities Results Results 24hrs Laboratory Tests Test 01/04/19 12:42 01/04/19 13:00 01/04/19 17:52 01/04/19 21:37 Bedside Glucose 104 107 197 Vancomycin Level 9.1 L Trough Test 01/05/19 02:38 01/05/19 04:52 01/05/19 08:55 Bedside Glucose 115 104 White Blood Count 8.3 # Red Blood Count 3.74 L Hemoglobin 10.4 L Hematocrit 34.2 L Mean Corpuscular 91.4 Volume Mean Corpuscular 27.8 L Hemoglobin Mean Corpuscular 30.4 L Hemoglobin Concent Red Cell 14.0 Distribution Width Platelet Count 260 Mean Platelet Volume 9.8 Immature 0.200 Granulocytes % Neutrophils % 57.6 Lymphocytes % 28.3 Monocytes % 8.0 Eosinophils % 5.3 Basophils % 0.6 Nucleated Red Blood 0.0 Cells % Immature 0.020 Granulocytes # Neutrophils # 4.8 Lymphocytes # 2.3 Monocytes # 0.7 Eosinophils # 0.4 Basophils # 0.1 Nucleated Red Blood 0.0 Cells # Sodium Level 140 Potassium Level 5.2 H Chloride Level 108 Carbon Dioxide Level 23 Anion Gap 9 Blood Urea Nitrogen 41 H Creatinine 1.62 H Est Glomerular Filtrat Rate mL/min Glucose Level 115 Calcium Level 9.1 Medications Medication Current Medications IV Flush (NS 3 ml) 3 ml PER PROTOCOL IV ; Start 12/31/18 at 07:30 Ondansetron HCl (Zofran Inj) 4 mg Q6H PRN IV NAUSEA/VOMITING; Start 12/31/18 at 07:30 Acetaminophen (Tylenol Tab) 650 mg Q6H PRN PO .PAIN 1-3 OR TEMP Last administered on 01/04/19at 10:54; Admin Dose 650 MG; Start 12/31/18 at 07:30 Acetaminophen/ Hydrocodone Bitart ([place] (5/325)) 1 tab Q6H PRN PO .MOD PAIN 4- 6 Last administered on 01/05/19 08:30; Admin Dose 1 TAB; Start 12/31/18 at 07:30 Morphine Sulfate (morphine) 2 mg Q4H PRN IV .SEVERE PAIN 7-10 Last administered on 12/31/18at 21:02; Admin Dose 2 MG; Start 12/31/18 at 07:30 Docusate Sodium (Colace) 100 mg Q12H PRN PO .CONSTIPATION; Start 12/31/18 at 07:30 Magnesium Hydroxide (Milk Of Mag) 30 ml DAILY PRN PO .CONSTIPATION; Start 12/31/18 at 07:30 Lorazepam (Ativan) 0.5 mg Q6H PRN IV ANXIETY; Start 12/31/18 at 07:30 Albuterol/ Ipratropium (Duoneb) 3 ml Q4H RESP THERAPY PRN HHN SHORTNESS OF BREATH; Start 12/31/18 at 07:30 Hydralazine HCl (Apresoline) 10 mg Q6H PRN IV ELEVATED BLOOD PRESSURE; Start 12/31/18 at 07:30 Nitroglycerin (Nitroglycerin (Sl Tab) 0.4 Mg) 1 tab Q5M PRN SL ANGINA; Start 12/31/18 at 07:30 Cholecalciferol (Vitamin D) 1,000 unit DAILY PO Last administered on 01/05/19 08:30; Admin Dose 1,000 UNIT; Start 12/31/18 at 09:00 Pantoprazole (Protonix Tab) 40 mg DAILY PO Last administered on 01/05/19 08:30; Admin Dose 40 MG; Start 12/31/18 at 09:00 Lisinopril (Zestril) 2.5 mg DAILY PO Last administered on 01/05/19 08:32; Admin Dose 2.5 MG; Start 01/01/19 at 09:00 Atorvastatin Calcium (Lipitor) 40 mg DAILY@21 PO Last administered on 01/04/19 21:33; Admin Dose 40 MG; Start 12/31/18 at 21:00 Collagenase (Santyl) 1 applic DAILY TOP Last administered on 01/05/19 08:56; Admin Dose 1 APPLIC; Start 12/31/18 at 19:30 Sodium Hypochlorite (Dakins Diluted ()) 1 applic BID TP Last administered on 01/05/19 08:56; Admin Dose 1 APPLIC; Start 01/01/19 at 12:00 Diagnostic Test (Pha) (Accu-Chek) 1 ea 02 XX ; Start 01/03/19 at 02:00 Insulin Aspart (Novolog Insulin Pen) NOVOLOG *MILD* ALGORITHM WITH MEALS BEDTIME SC Last administered on 01/04/19 21:43; Admin Dose 1 UNIT; Start 01/02/19 at 11:40 Metoprolol Tartrate (Lopressor) 50 mg BID PO Last administered on 01/05/19 08:31; Admin Dose 50 MG; Start 01/02/19 at 21:00 Lactobacillus Acidophilus/ Rhamnosus (Culturelle) 1 cap BID PO Last administered on 01/05/19 08:30; Admin Dose 1 CAP; Start 01/02/19 at 10:30 Miscellaneous Information 1 ea NOTE XX ; Start 01/02/19 at 11:00 Glucose (Glutose) 15 gm Q15M PRN PO DECREASED GLUCOSE; Start 01/02/19 at 11:00 Glucose (Glutose) 22.5 gm Q15M PRN PO DECREASED GLUCOSE; Start 01/02/19 at 11:00 Dextrose (D50w Syringe) 25 ml Q15M PRN IV DECREASED GLUCOSE; Start 01/02/19 at 11:00 Dextrose (D50w Syringe) 50 ml Q15M PRN IV DECREASED GLUCOSE; Start 01/02/19 at 11:00 Glucagon (Glucagen) 1 mg Q15M PRN IM DECREASED GLUCOSE; Start 01/02/19 at 11:00 Glucose (Glutose) 15 gm Q15M PRN BUCCAL DECREASED GLUCOSE; Start 01/02/19 at 11 :00 Meropenem/Sodium Chloride 50 ml @ 100 mls/hr Q12H IVPB Last administered on 01/05/19at 06:48; Admin Dose 100 MLS/HR; Start 01/02/19 at 18:30 Apixaban (Eliquis) 2.5 mg BID PO Last administered on 01/05/19at 08:31; Admin Dose 2.5 MG; Start 01/05/19 at 09:00 IV Flush (NS 10 ml) 10 ml PRN PRN IV IV PROTOCOL Last administered on 01/05/19at 06:48; Admin Dose 10 ML; Start 01/04/19 at 17:30 Levofloxacin (Levaquin) 500 mg Q48H PO Last administered on 01/04/19at 21:31; Admin Dose 500 MG; Start 01/04/19 at 19:30 BASSAM CRUMP MD Jan 05, 2019 10:34
--- NOTE | 2019-01-05 10:35 | PDOCDIS ---
Discharge Instructions DIAGNOSIS Discharge Diagnosis 1. 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 Severe PAD 3. Diabetes Mellitus type 2 4. Chronic kidney disease 5. Atrial fibrillation 6. HTN 7. Anemia of chronic disease CONDITION [id number] Patient Condition: [id number] Stable HOME CARE INSTRUCTIONS: [id number] Diet Instructions: [id number] Low Fat /Cholesterol ACTIVITY: [id number] Activity Restrictions: [id number] Slowly Increase Activity [id number] Bathing Restrictions: [id number] Tub Bath FOLLOW UP/APPOINTMENTS Follow-up Plan 1. Follow up with your primary care physician in 1 week 2. Follow up with Dr. Allen as previously scheduled for intervention on your right leg 3. Follow up with Infectious disease, Dr. Rubalcava, in 2 weeks. Please call his office to make an appointment 4. Follow up with Dr. Arriaza at [facility] clinic in 1 week 5. Continue all medications as prescribed 6. If experiencing any concerning symptoms, please go to the nearest emergency department 1. Siga con duque mdico de atencin primaria en 1 semana 2. Siga con el Dr. Allen samreen se program previamente para la intervencin en duque pierna derecha 3. Seguimiento de la enfermedad infecciosa, Dr. Rubalcava, en 2 semanas. Por favor llame a duque oficina para hacer stephy tuan 4. Siga con el Dr. Arriaza en la clnica [facility] en 1 semana 5. Contine con todos los medicamentos segn lo prescrito 6. Si experimenta algn sntoma preocupante, por favor vaya al departamento de emergencias ms lynette REFERRALS Other Referrals Robson Rubalcava MD Specialty Infectious Disease Comments Office Address [address] [place] [address] Office BASSAM CRUMP MD Jan 05, 2019 10:35
[2019-01-05] MEDS ORDERED: MEROPENEM 1 GM/50ML(PMX) 50 ML IVPB SCH (13:00)
[2019-01-05] MEDS ORDERED: LACT1CAP28 PO (15:49)
--- NOTE | 2019-01-05 18:01 | DS ---
Date/Time of Note Date/Time of Note DATE: 01/05/19 TIME: 17:55 Discharge Summary Admission/Discharge Info Admit Date/Time Dec 31, 2018 at 00:35 Discharge Date/Time Jan 05, 2019 at 15:57 Discharge Diagnosis 1. 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 Severe PAD 3. Diabetes Mellitus type 2 4. Chronic kidney disease 5. Atrial fibrillation 6. HTN 7. Anemia of chronic disease Patient Condition: Stable Consults Podiatry- Dr. Arriaza Vascular Surgery- Dr. Allen Cardiology- Dr. Burrows Infectious disease- Dr. Rubalcava Hx of Present Illness 88 yo female with severe PAD, recent angiogram showing subtotal occlusion of the right common femoral artery. It had been previously treated with angioplasty and had restenosed fairly rapidly. Common femoral endarterectomy had been planned as an outpatient by Dr Allen. Came to ED because ulceration of R foot and pain has gotten worse XR suggested osteomyelitis at outside hospital Hospital Course Patient was admitted for treatment of diabetic right foot ulcer. Podiatry was consulted for evaluation and MRI results were noted for early osteomyelitis. Infectious disease was consulted for antibiotic management and recommended Levaquin PO and Ertapenem IV for 6 week total course. Patient was evaluated by Vascular surgery and recommendations for femoral endarterectomy as outpatient. Cardiology was consulted for clearance. Patient was started on Eliquis given new onset atrial fibrillation. PICC line was placed prior to discharge and HH arrangements were made. Patients vitals and physical exam remained stable. Patient was discharged home in good condition with instructions to follow up with Vascular in 1 week. Home Meds Active Scripts Lactobacillus Rhamnosus GG (Culturelle) 1 Each Capsule, 1 CAP PO BID for 14 Days, #28 CAP otc Prov:BASSAM CRUMP MD 01/05/19 Levofloxacin* (Levaquin*) 500 Mg Tablet, 500 MG PO Q48H for 42 Days, #25 TAB Prov:CONY MALONEY MD 01/04/19 Sodium Hypochlorite (Di-Dak-Fern) 473 Ml Solution, 1 APPLIC TP BID for 10 Days, #1 1 Refill 1 week supply and 1 refill Prov:CONY MALONEY MD 01/04/19 Collagenase* (Santyl*) 30 Gm Oint..gm., 1 APPLIC TOP DAILY for 10 Days, #10 1 Refill Dispense 1 week supply and 1 refill Prov:CONY MALONEY MD 01/04/19 Hydrocodone Bit-Acetaminophen (Hydrocodone Bit-APAP) 5-325MG Tablet, 1 TAB PO Q6H PRN for .MOD PAIN 4-6 for 5 Days, TAB Prov:CONY MALONEY MD 01/04/19 Acetaminophen* (Tylenol*) 325 Mg Tablet, 650 MG PO Q6H PRN for .PAIN 1-3 OR TEMP for 5 Days, TAB Prov:CONY MALONEY MD 01/04/19 Metoprolol Tartrate* (Lopressor*) 50 Mg Tab, 50 MG PO BID for 15 Days, #30 TAB Prov:CONY MALONEY MD 01/04/19 Apixaban* (Eliquis*) 5 Mg Tablet, 2.5 MG PO BID for 30 Days, #14 TAB 2 Refills Prov:CONY MALONEY MD 01/04/19 Reported Medications Alendronate Sodium* (Alendronate Sodium*) 40 Mg Tablet, 70 MG PO weekly, #30 TAB 12/31/18 Pantoprazole* (Pantoprazole*) 40 Mg Tablet.dr, 40 MG PO DAILY, TAB 12/31/18 Alendronate Sodium* (Fosamax*) 70 Mg Tablet, 70 MG PO Q7D, #4 TAB 12/07/18 Pravastatin Sodium* (Pravastatin Sodium*) 80 Mg Tablet, 80 MG PO HS, TAB 12/07/18 Cholecalciferol* (Vitamin D3*) 1,000 Unit Tablet, 1000 UNIT PO DAILY, TAB 12/07/18 Lisinopril* (Lisinopril*) 2.5 Mg Tablet, 2.5 MG PO DAILY, #30 TAB 12/07/18 Discontinued Reported Medications Aspirin* (Aspirin* EC) 81 Mg Tablet.dr, 81 MG PO DAILY, TAB 12/31/18 Clopidogrel Bisulfate (Clopidogrel) 75 Mg Tablet, 75 MG PO DAILY, #30 TAB 12/31/18 Pravastatin Sodium (Pravachol) 20 Mg Tablet, 20 MG PO DAILY, TAB 12/31/18 Metoprolol Tartrate* (Lopressor*) 25 Mg Tablet, 25 MG PO BID, #60 TAB 12/31/18 [[facility] nonaspirin ] No Conflict Check, 500 MG PO Q6 PRN for PAIN 12/31/18 Pravastatin Sodium* (Pravastatin Sodium*) 20 Mg Tablet, 20 MG PO DAILY, TAB 12/07/18 Pantoprazole* (Protonix*) 40 Mg Tablet.dr, 40 MG PO DAILY, TAB 12/07/18 Clopidogrel Bisulfate* (Clopidogrel Bisulfate*) 75 Mg Tablet, 75 MG PO DAILY, #30 TAB 12/07/18 Acetaminophen* (Tylophen*) 500 Mg Capsule, 1000 MG PO Q6H PRN for PAIN LEVEL 1- 3, TAB 12/07/18 Aspirin* (Aspirin* EC) 81 Mg Tablet.dr, 81 MG PO DAILY, TAB 12/07/18 Metoprolol Tartrate* (Lopressor*) 25 Mg Tab, 25 MG PO BID, #60 TAB 12/07/18 Follow-up Plan 1. Follow up with your primary care physician in 1 week 2. Follow up with Dr. Allen as previously scheduled for intervention on your right leg 3. Follow up with Infectious disease, Dr. Rubalcava, in 2 weeks. Please call his office to make an appointment 4. Follow up with Dr. Arriaza at [facility] clinic in 1 week 5. Continue all medications as prescribed 6. If experiencing any concerning symptoms, please go to the nearest emergency department 1. Siga con duque mdico de atencin primaria en 1 semana 2. Siga con el Dr. Allen samreen se program previamente para la intervencin en duque pierna derecha 3. Seguimiento de la enfermedad infecciosa, Dr. Rubalcava, en 2 semanas. Por favor llame a duque oficina para hacer stephy tuan 4. Siga con el Dr. Arriaza en la clnica [facility] en 1 semana 5. Contine con todos los medicamentos segn lo prescrito 6. Si experimenta algn sntoma preocupante, por favor vaya al departamento de emergencias ms ojeda Primary Care Provider Not On Staff Doctor Time spent on discharge: > 30 minutes Pending Labs Laboratory Tests Test 01/04/19 21:37 01/05/19 02:38 01/05/19 04:52 01/05/19 08:55 Bedside 197 115 104 Glucose mg/dL (70-220) mg/dL (70-220) mg/dL (70-220) White Blood 8.3 Count 10^3/ul (4.8-1 0.8) Red Blood 3.74 Count 10^6/ul (4.20- 5.40) Hemoglobin 10.4 g/dl (12.0-16. 0) Hematocrit 34.2 % (37.0-47.0) Mean 91.4 Corpuscular fl (82.0-101.0 Volume ) Mean 27.8 Corpuscular pg (29.0-33.0) Hemoglobin Mean 30.4 Corpuscular g/dl (32.0-37. Hemoglobin Conc 0) ent Red Cell 14.0 Distribution % (11.5-14.5) Width Platelet Count 260 10^3/UL (140-4 15) Mean Platelet 9.8 Volume fl (7.4-10.4) Immature 0.200 Granulocytes % % (0.001-0.429 ) Neutrophils % 57.6 % (39.0-77.0) Lymphocytes % 28.3 % (15.0-51.0) Monocytes % 8.0 % (0.0-11.0) Eosinophils % 5.3 % (0.0-7.0) Basophils % 0.6 % (0.0-2.0) Nucleated Red 0.0 Blood Cells % /100WBC (0.0-0 .0) Immature 0.020 Granulocytes # 10^3/ul (0.0-0 .031) Neutrophils # 4.8 10^3/ul (1.6-7 .5) Lymphocytes # 2.3 10^3/ul (0.8-2 .9) Monocytes # 0.7 10^3/ul (0.3-0 .9) Eosinophils # 0.4 10^3/ul (0.0-0 .5) Basophils # 0.1 10^3/ul (0.0-0 .1) Nucleated Red 0.0 Blood Cells # 10^3/ul (0.0-0 .0) Sodium Level 140 mmol/L (135-14 4) Potassium 5.2 Level mmol/L (3.5-5. 1) Chloride Level 108 mmol/L (97-110 ) Carbon Dioxide 23 Level mmol/L (21-31) Anion Gap 9 (5-13) Blood Urea 41 Nitrogen mg/dl (7-20) Creatinine 1.62 mg/dl (0.44-1. 00) Est Glomerular mL/min (>60) Filtrat Rate mL/min Glucose Level 115 mg/dl (70-220) Calcium Level 9.1 mg/dl (8.4-10. 2) Test 01/05/19 12:33 Bedside 106 Glucose mg/dL (70-220) BASSAM CRUMP MD Jan 05, 2019 18:01
[2019-01-06] MEDS ORDERED: VANCOMYCIN HCL 1.25 GM in SOD CHLORIDE 0.9% 250 ML IVPB SCH (12:00)
== END 2019-01-05 15:57 | disposition home health service (06) | DRG 638 ==
LOC: TEL 00:35 → MS1 01-02 07:08
PROVIDERS: ADMIT Hospitalist; ATTEND Internal Medicine
PROC: 02HV33Z Insertion of Infusion Device into Superior Vena Cava, Percutaneous Approach (ICD-10-PCS; principal; 2019-01-04)
DX: E11.621 Type 2 diabetes mellitus with foot ulcer (principal); L03.115 Cellulitis of right lower limb; I13.0 Hypertensive heart and chronic kidney disease with heart failure and stage 1 through stage 4 chronic kidney disease, or unspecified chronic kidney disease; I50.30 Unspecified diastolic (congestive) heart failure; M86.171 Other acute osteomyelitis, right ankle and foot; E11.69 Type 2 diabetes mellitus with other specified complication; L97.519 Non-pressure chronic ulcer of other part of right foot with unspecified severity; E11.51 Type 2 diabetes mellitus with diabetic peripheral angiopathy without gangrene; E11.22 Type 2 diabetes mellitus with diabetic chronic kidney disease; I48.91 Unspecified atrial fibrillation; I08.3 Combined rheumatic disorders of mitral, aortic and tricuspid valves; I99.8 Other disorder of circulatory system; N18.3 Chronic kidney disease, stage 3 (moderate); E88.81 Metabolic syndrome and other insulin resistance; D63.8 Anemia in other chronic diseases classified elsewhere; R62.7 Adult failure to thrive; I70.201 Unspecified atherosclerosis of native arteries of extremities, right leg; Z88.0 Allergy status to penicillin
CPT/HCPCS: 36569; 71045; 73718; 76937; 80048; 80061; 80202; 82040; 82962; 83036; 83735; 84100; 84134; 84439; 84443; 85025; 85610; 85651; 85730; 87070; 92610; 93005; 93306; 94664; 97162; 97167; J1644; J1815; J2185; J2270; J3370; J7050

== ENCOUNTER 2019-01-18 06:06 | Inpatient (IN) | payer OTHER ==
[2019-01-18] VITALS (54 sets, daily range): BP systolic 92–159; BP diastolic 42–81; PULSE 82–106; RESP 15–27; Ht 149.9 cm; Wt 67.9 kg
[~2019-01-18] VITALS: Ht 149.9 cm; Wt 67.9 kg
[~2019-01-18 06:06] MED LIST changes: +ACET325T33 PO; -ACET500C5 PO; +ALEN40TA2 PO; +APIX5TAB PO; -ASPI-817 PO; -CLOP75TA19 PO; +HYDR-3601 PO; +LACT1CAP28 PO; +LEVO500T48 PO; +METO-429 PO; -METO-448 PO; -PANT40TA3 PO; +PANT40TA4 PO; -PRAV20TA63 PO; +SAN30GM TOP; +SODI473S5 TP
[2019-01-18] MEDS ORDERED: ALEN70TA5 PO (07:08)
[2019-01-18] MEDS ORDERED: PANT40TA3 PO (07:08)
--- NOTE | 2019-01-18 07:08 | HPN ---
Date/Time of Note Date/Time of Note DATE: 01/18/19 TIME: 07:08 Interval H&P Admission Note Pt. seen H&P reviewed: No system changes REJI AGUSTIN MD Jan 18, 2019 07:08
[2019-01-18] MEDS ORDERED: METO-448 PO (07:09)
[2019-01-18] MEDS ORDERED: PRAV20TA63 PO (07:09)
[2019-01-18] MEDS ORDERED: ASPI81TA52 PO (07:09)
[2019-01-18] MEDS ORDERED: CHOL100062 PO (07:10)
[2019-01-18] MEDS ORDERED: MECL-77 PO (07:10)
[2019-01-18] MEDS ORDERED: GABA300C16 PO (07:11)
[2019-01-18] MEDS ORDERED: ACET-141 PO (07:11)
[2019-01-18] MEDS ORDERED: HYDR-4011 PO (07:11)
--- NOTE | 2019-01-18 07:26 | PREAC ---
Date/Time of Note Date/Time of Note DATE: 01/18/19 TIME: 07:24 Anesthesia Eval and Record Evaluation Time Pre-Procedure Interview DATE: 01/18/19 TIME: 07:24 Age 88 Sex female NPO: 8 hrs Preoperative diagnosis R femoral artery occlusion Planned procedure R femoral endarterectomy Past Medical History Past Medical History: Includes Cardio: HTN, Dyslipidemia, CAD, Arrythmia, CHF Musculoskeletal: Osteoarthritis Renal: CKD Heme: Anemia, Coagulation disorder Surgery & Anesthesia Issues No known issue Meds Anticoagulation: No Beta Alex within 24 hr: No Reason Beta Alex not given: Pt. not on B-Alex Reported Medications Hydrocodone/Acetaminophen ([place] 5-325 Tablet) 1 Each Tablet, 1 EACH PO Q6 PRN for PAIN, TAB 01/18/19 Acetaminophen* (Acetaminophen*) 500 MG Extra Strength Tablet, 1000 MG PO Q6H PRN for PAIN AND OR ELEVATED TEMP, TAB 01/18/19 Gabapentin* (Gabapentin*) 300 Mg Capsule, 300 MG PO TID, #90 CAP 01/18/19 Cholecalciferol* (Vitamin D3*) 1,000 Unit Tablet, 1000 UNIT PO DAILY, TAB 01/18/19 Meclizine Hcl* (Meclizine Hcl*) 25 Mg Tablet, 25 MG PO Q6 PRN for DIZZINESS, TAB 01/18/19 Aspirin (Low Dose Aspirin) 81 Mg Tablet.dr, 81 MG PO DAILY, #30 TAB 01/18/19 Metoprolol Tartrate* (Lopressor*) 25 Mg Tab, 25 MG PO BID, #60 TAB 01/18/19 Pravastatin Sodium* (Pravastatin Sodium*) 20 Mg Tablet, 20 MG PO HS, TAB 01/18/19 Pantoprazole* (Protonix*) 40 Mg Tablet.dr, 40 MG PO DAILY, TAB 01/18/19 Alendronate Sodium* (Fosamax*) 70 Mg Tablet, 70 MG PO EVERY MONDAY, #4 TAB 01/18/19 Discontinued Reported Medications Alendronate Sodium* (Alendronate Sodium*) 40 Mg Tablet, 70 MG PO weekly, #30 TAB 12/31/18 Pantoprazole* (Pantoprazole*) 40 Mg Tablet.dr, 40 MG PO DAILY, TAB 12/31/18 Alendronate Sodium* (Fosamax*) 70 Mg Tablet, 70 MG PO Q7D, #4 TAB 12/07/18 Pravastatin Sodium* (Pravastatin Sodium*) 80 Mg Tablet, 80 MG PO HS, TAB 12/07/18 Cholecalciferol* (Vitamin D3*) 1,000 Unit Tablet, 1000 UNIT PO DAILY, TAB 12/07/18 Lisinopril* (Lisinopril*) 2.5 Mg Tablet, 2.5 MG PO DAILY, #30 TAB 12/07/18 Discontinued Scripts Lactobacillus Rhamnosus GG (Culturelle) 1 Each Capsule, 1 CAP PO BID for 14 Days, #28 CAP otc Prov:BASSAM CRUMP MD 01/05/19 Levofloxacin* (Levaquin*) 500 Mg Tablet, 500 MG PO Q48H for 42 Days, #25 TAB Prov:CONY MALONEY MD 01/04/19 Sodium Hypochlorite (Di-Dak-Fern) 473 Ml Solution, 1 APPLIC TP BID for 10 Days, #1 1 Refill 1 week supply and 1 refill Prov:CONY MALONEY MD 01/04/19 Collagenase* (Santyl*) 30 Gm Oint..gm., 1 APPLIC TOP DAILY for 10 Days, #10 1 Refill Dispense 1 week supply and 1 refill Prov:CONY MALONEY MD 01/04/19 Hydrocodone Bit-Acetaminophen (Hydrocodone Bit-APAP) 5-325MG Tablet, 1 TAB PO Q6H PRN for .MOD PAIN 4-6 for 5 Days, TAB Prov:CONY MALONEY MD 01/04/19 Acetaminophen* (Tylenol*) 325 Mg Tablet, 650 MG PO Q6H PRN for .PAIN 1-3 OR TEMP for 5 Days, TAB Prov:CONY MALONEY MD 01/04/19 Metoprolol Tartrate* (Lopressor*) 50 Mg Tab, 50 MG PO BID for 15 Days, #30 TAB Prov:CONY MALONEY MD 01/04/19 Apixaban* (Eliquis*) 5 Mg Tablet, 2.5 MG PO BID for 30 Days, #14 TAB 2 Refills Prov:CONY MALONEY MD 01/04/19 Meds reviewed: Yes Allergies Coded Allergies: Penicillins (Verified Allergy, Unknown, rash, 01/18/19) Allergies Reviewed: Yes Labs/Studies Labs Reviewed: Reviewed by anesthesiologist Result Diagram: 01/18/19 0643 Laboratory Tests 01/18/19 06:43 test: N/A Studies: ECG, CXR, 2D Echo Pre-procedure Exam Airway: Adequate mouth opening, Adequate thyromental dist Mallampati: Mallampati II Teeth: Normal Lung: Normal Heart: Normal ASA Physical Status ASA physical status: 4 Emergency: None Planned Anesthetic General/MAC: ETT Pre-operative Attestations Prior to commencing anesthesia and surgery, the patient was re-evaluated, there was verification of: *The patient's identity *The results of appropriate recent lab work and preoperative vital signs *The above evaluation not changing prior to induction *Anesthetic plan, risk benefits, alternative and complications discussed with patient/family; questions answered; patient/family understands, accepts and wishes to proceed. HILARY VARGAS Jan 18, 2019 07:26
[2019-01-18] MEDS ORDERED: GELATIN 2 SQ INCH SPONGE TOP ONE (07:30)
[2019-01-18] MEDS ORDERED: THROMBIN 5000 UNIT VIAL ONE (07:30)
[2019-01-18] MEDS ORDERED: HEPARIN 1000 UNITS/ML 10 ML INJ IRR ONE (07:30)
[2019-01-18] MEDS ORDERED: LIDOCAINE 1% (MPF) 30 ML INJ ONE (07:30)
[2019-01-18] MEDS ORDERED: GELATIN SIZE 100 SPONGE ONE (07:30)
[2019-01-18] MEDS ORDERED: THROMBIN 5000 UNIT VIAL TOP ONE (07:30)
[2019-01-18] MEDS ORDERED: HEPARIN 1000 UNITS/ML 10 ML INJ ONE ×2 (07:31→09:11)
[2019-01-18] MEDS ORDERED: SOD CHLORIDE 0.9% 1,000 ML IV SCH (08:00)
[2019-01-18] MEDS ORDERED: FENTAnyl 50 MCG/ML VIAL ONE (08:20)
[2019-01-18] MEDS ORDERED: FENTAnyl 50 MCG/ML VIAL IV PRN (09:30)
[2019-01-18] MEDS ORDERED: DIPHENHYDRAMINE 50 MG INJ IV PRN (09:30)
[2019-01-18] MEDS ORDERED: ALBUTEROL 0.083% (NEB) 2.5 MG/3 ML AMP HHN PRN (09:30)
[2019-01-18] MEDS ORDERED: METOCLOPRAMIDE 10 MG INJ IV PRN (09:30)
[2019-01-18] MEDS ORDERED: HYDROmorphONE 1 MG/5 ML IV SYRINGE IV PRN (09:30)
[2019-01-18] MEDS ORDERED: ONDANSETRON 4 MG INJ IV PRN ×2 (09:30→12:00)
[2019-01-18] MEDS ORDERED: PROTAMINE 250 MG INJ ONE (09:40)
--- NOTE | 2019-01-18 09:59 | SIPON ---
Date/Time of Note Date/Time of Note DATE: 01/18/19 TIME: 09:54 Operative Report Preoperative Diagnosis R foot non healing ulcer Postoperative Diagnosis same Operation/Procedure Performed R iliofemoral endarterectomy Surgeon see signature line hr administrative assistant Maria Luisa MENG Anesthesia: general Estimated blood loss: 10 - 50 ml's Transfusion Required none Specimen iliofemoral plaque Grafts/Implants none Complications none REJI AGUSTIN MD Jan 18, 2019 09:59
[2019-01-18] MEDS ORDERED: SUGAMMADEX SODIUM 200 MG/2 ML VIAL IV ONE (10:00)
[2019-01-18] MEDS ORDERED: LIDOCAINE 100 MG SYRINGE ONE (10:00)
[2019-01-18] MEDS ORDERED: ROCURONIUM 50 MG INJ ONE (10:00)
[2019-01-18] MEDS ORDERED: CLINDAMYCIN 600 MG/D5W (PMX) 50 ML IVPB ONE (10:00)
[2019-01-18] MEDS ORDERED: SUCCINYLCHOLINE CHLORIDE 100 MG/5 ML SYG IV ONE (10:00)
[2019-01-18] MEDS ORDERED: PROPOFOL 20 ML ONE (10:00)
--- NOTE | 2019-01-18 10:54 | HP ---
Date/Time of Note Date/Time of Note DATE: 01/18/19 TIME: 10:49 Assessment/Plan VTE Prophylaxis SCD applied (from Nsg): Yes Pharmacological prophylaxis: other Lines/Catheters IV Catheter Type (from Nrsg): PICC Line Central line still needed: Yes Assessment/Plan Hospital Course Assessment/Plan: 88-year-old female status post right iliofemoral endarterectomy: # Severe PAD- h/o revascularization in the past -again status post right iliofemoral endarterectomy earlier today. 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 - ID on board and patient has been on a regimen of 6 weeks total of IV Ertapenem which we will continue today -Will also obtain ID consult # Diabetes Mellitus type 2 - ISS and accuchecks # Chronic kidney disease- at baseline - renally dose all medications # Atrial fibrillation -Monitor for now # HTN- stable - continue current medications # Anemia of chronic disease- stable -Monitor Result Diagram: 01/18/19 0643 01/18/19 0643 Results 24hrs Laboratory Tests Test 01/18/19 06:43 01/18/19 06:50 White Blood Count 8.3 Red Blood Count 3.37 L Hemoglobin 9.1 L Hematocrit 29.6 L Mean Corpuscular Volume 87.8 Mean Corpuscular Hemoglobin 27.0 L Mean Corpuscular Hemoglobin Concent 30.7 L Red Cell Distribution Width 13.3 Platelet Count 292 Mean Platelet Volume 9.6 Immature Granulocytes % 0.200 Neutrophils % 59.3 Lymphocytes % 25.7 Monocytes % 9.5 Eosinophils % 4.5 Basophils % 0.8 Nucleated Red Blood Cells % 0.0 Immature Granulocytes # 0.020 Neutrophils # 4.9 Lymphocytes # 2.1 Monocytes # 0.8 Eosinophils # 0.4 Basophils # 0.1 Nucleated Red Blood Cells # 0.0 CBC Results Faxed/Phoned 1 *H Prothrombin Time 13.6 Prothrombin Time Ratio 1.1 INR International Normalized Ratio 1.03 Activated Partial Thromboplast Time 31.1 Sodium Level 139 Potassium Level 5.1 Chloride Level 106 Carbon Dioxide Level 23 Anion Gap 10 Blood Urea Nitrogen 39 H Creatinine 1.69 H Est Glomerular Filtrat Rate mL/min Glucose Level 87 Calcium Level 8.7 Total Bilirubin 0.3 Direct Bilirubin 0.00 Indirect Bilirubin 0.3 Aspartate Amino Transf (AST/SGOT) 24 Alanine Aminotransferase (ALT/SGPT) 15 Alkaline Phosphatase 90 Total Protein 6.6 Albumin 3.3 Globulin 3.30 H Albumin/Globulin Ratio 1.00 Bedside Glucose 91 HPI/ROS Admit Date/Time Admit Date/Time Jan 18, 2019 at 06:06 Hx of Present Illness 88 yo female with severe PAD, right foot ulcer nonhealing with osteomyelitis, diabetes type 2, CKD, A. fib, hypertension, anemia chronic disease, who was brought in by vascular surgery team and underwent right iliofemoral endarterectomy earlier today. Patient presently denies any chest pain, shortness breath, upper lower GI bleeding, nausea vomiting, fever chills. Patient was recently hospitalized here at our hospital from December 31 to January 05 for right diabetic foot ulcer with osteomyelitis and severe peripheral artery disease. PMH/Family/Social Past Medical History Medications Current Medications Sodium Chloride 1,000 ml @ 0 mls/hr Q0M IV ; Start 01/18/19 at 08:00 Hydromorphone HCl (Dilaudid) 0.2 mg PACU PRN IV MILD PAIN 1-3; Start 01/18/19 at 09:30; Stop 01/18/19 at 14:00 Fentanyl (Sublimaze) 25 mcg PACU ORDER PRN IV MILD PAIN 1-3; Start 01/18/19 at 09:30; Stop 01/18/19 at 14:00 Ondansetron HCl (Zofran Inj) 4 mg PACU ORDER PRN IV NAUSEA/VOMITING; Start 01/18/19 at 09:30; Stop 01/18/19 at 14:00 Metoclopramide HCl (Reglan) 10 mg PACU ORDER PRN IV NAUSEA/VOMITING; Start 01/18/19 at 09:30; Stop 01/18/19 at 14:00 Albuterol (Proventil 0.083% (Neb)) 2.5 mg PACU ORDER PRN HHN .WHEEZING; Start 01/18/19 at 09:30; Stop 01/18/19 at 14:00 Diphenhydramine HCl (Benadryl) 25 mg PACU ORDER PRN IV .PRURITUS; Start 01/18/19 at 09:30; Stop 01/18/19 at 14:00 Coded Allergies: Penicillins (Verified Allergy, Unknown, rash, 01/18/19) Past Surgical History Past Surgical Hx: other (1. Right iliofemoral endarterectomy 2. abdominal aortogram with right lower extremity runoff) Family History Significant Family History: no pertinent family hx Social History Smoking Status: Never smoker Exam/Review of Systems Vital Signs Vitals Vital Signs Date Temp Pulse Resp B/P (MAP) Pulse Ox O2 O2 Flow FiO2 Time Delivery Rate 01/18/19 92 150/54 10:45 (86) 01/18/19 98.6 10:32 01/18/19 16 94 Room Air 07:39 Exam Exam Gen: alert, oriented, well developed, lying in bed Head: normocephalic, atraumatic Eyes: nl conjunctiva, nl lids ENMT: nl external ears & nose, nl nasal mucosa & septum Neck: supple Respiratory: clear to auscultation B/L Cardiovascular: irregular rhythm Gastrointestinal: soft, non-tender Extremities: edema (trace) Neurological: no focal deficits NOHEMY JESSICA Jan 18, 2019 10:54
[2019-01-18] MEDS ORDERED: MAGNESIUM HYDROXIDE 30ML CUP PO PRN (12:00)
[2019-01-18] MEDS ORDERED: HYDROCODONE/APAP (5/325) TAB PO PRN (12:00)
[2019-01-18] MEDS ORDERED: NACL 0.9% 3 ML SYG IV SCH (12:00)
[2019-01-18] MEDS ORDERED: MECLIZINE 25 MG TAB PO PRN (12:00)
[2019-01-18] MEDS ORDERED: hydrALAzine 20 MG INJ IV PRN (12:00)
[2019-01-18] MEDS ORDERED: NITROGLYCERIN (SL) 0.4 MG TAB SL PRN (12:00)
[2019-01-18] MEDS ORDERED: morphine 2 MG INJ IV PRN (12:00)
[2019-01-18] MEDS ORDERED: DOCUSATE SODIUM 100 MG CAP PO PRN (12:00)
[2019-01-18] MEDS ORDERED: LORAZEPAM 2 MG INJ IV PRN (12:00)
[2019-01-18] MEDS ORDERED: ALBUTEROL/IPRATROPIUM (NEB) 3 ML AMP HHN PRN (12:00)
[2019-01-18] MEDS: INSULIN ASPART [NOVOLOG] 3 ML PEN SC SCH ×3 (13:00→20:48)
--- NOTE | 2019-01-18 13:15 | OPR ---
DATE OF OPERATION: 01/18/2019 PREOPERATIVE DIAGNOSIS: Right foot nonhealing ulcers with ischemia. POSTOPERATIVE DIAGNOSIS: Right foot nonhealing ulcers with ischemia. PROCEDURE PERFORMED: Right iliofemoral endarterectomy. SURGEON: Reji Allen MD ANESTHESIA: General endotracheal anesthesia. ESTIMATED BLOOD LOSS: 50 mL. COMPLICATIONS: There are no intraprocedural complications. INDICATIONS: This is an 88-year-old woman. She has a wound between the right 4th and 5th toes and it has been there for more than 6 months. I had previously angioplastied her common femoral artery occlusion. It recurred. 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 She also has an SFA occlusion distally and very severe diffuse tibial disease. Profunda is patent, so I brought her in today for right iliofemoral endarterectomy of the plaque beginning in the external iliac extending down into the common femoral. DESCRIPTION OF PROCEDURE: The patient was brought to the operating room and placed on the table in supine position. After induction of general endotracheal anesthesia, the right groin was prepped and draped in the usual sterile fashion. The patient is morbidly obese. She has a very large pannus, taped that up and made an incision over the right common femoral artery. I dissected down through the subcutaneous tissue using electrocautery. I used a Yobani's arm to retract the inguinal ligament and the pannus, so I could get access to the distal external iliac artery which was soft. I found a nice soft area above the circumflex iliac arteries. I then carefully dissected out the external iliac, common femoral. The medial and lateral circumflex iliac arteries and profunda femoral artery. I controlled them all with vessel loops. I gave the patient 6000 units of heparin intravenously. I then clamped the external iliac artery, the superficial and profunda femoris and looped all the side branches with vessi-loops and pulled up on those. I then made an anterior arteriotomy beginning on the superficial femoral artery and extending up to the external iliac artery. I then used a Horatio elevator to remove the plaque. It was an essentially occluded artery. I could not find a lumen in the mid common femoral. I got a very nice endpoint at the top and then at the bottom and the plaque did not extend into the the profunda. I did an endarterectomy at the proximal SFA and got a very nice endpoint. I then sutured a 1 cm x 6 cm bovine carotid patch using 5-0 Prolene suture onto the arteriotomy. Once I had completed anastomosis after backbleeding and flushing there was good hemostasis. I closed the skin incision in 2 layers using an inner layer of 3-0 Vicryl and outer layer of 4-0 Monocryl subcuticular suture. Sterile dressing was applied. The patient was then extubated in the operating room and transferred to the recovery room in stable condition. She tolerated the procedure well without any complications. Dictated By: REJI SADLER/RAFFAELE Conf#: [id number] DID#: [id number] CC: MAGALIE HOLLIS DPM;*EndCC* MTDD
--- NOTE | 2019-01-18 13:46 | PAC ---
Date/Time of Note Date/Time of Note DATE: 01/18/19 TIME: 13:46 Post-Anesthesia Notes Post-Anesthesia Note Last documented vital signs Vital Signs Date Temp Pulse Resp B/P (MAP) Pulse Ox O2 O2 Flow FiO2 Time Delivery Rate 01/18/19 88 18 148/56 100 12:22 (86) 01/18/19 Nasal 12:12 Cannula 01/18/19 3.0 11:07 01/18/19 98.6 10:32 Activity: WNL Respiratory function: WNL Cardiovascular function: WNL Mental status: Baseline Pain reasonably controlled: Yes Hydration appropriate: Yes Nausea/Vomiting absent: Yes HILARY VARGAS Jan 18, 2019 13:46
[2019-01-18] MEDS ORDERED: GABAPENTIN 300 MG CAP ONE (13:56)
[2019-01-18] MEDS: GABAPENTIN 300 MG CAP PO SCH ×2 (14:02→20:44)
[2019-01-18] MEDS: ERTAPENEM SODIUM 0.5 GM in SOD CHLORIDE 0.9% 100 ML IVPB SCH (15:43)
--- NOTE | 2019-01-18 16:57 | CONS ---
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 MRI on 12/31/2018 showed mild bone marrow edema in R 4th toe proximal phalanx which could represent early OM or nonspecific stress reaction. Moderate soft tissue edema without evidence of abscess, suggesting cellulitis. The wound culture on 12/31/2018 grew enterobacter, corynebacteria and stenotrophomonas - Severe PAD - s/p R iliofemoral endarterectomy 01/18/2019 - h/o revascularization in the past - T2DM - Hgb A1c 6.8% - CKD - Atrial fib - HTN - Mild , mild AR/MR, and mild-mod TR - ACD recommendations: - continue ertapenem (initially started as meropenem 01/02/2019-) and levofloxacin (01/04/2019-) management d/w Pt's RN the critical care time I took to care for this Pt today was from 1600 to 1630 Consultation Date/Type/Reason Admit Date/Time Jan 18, 2019 at 06:06 Date of Consultation: Jan 18, 2019 Type of Consult ID Reason for Consultation OM of R foot Requesting Provider: NOHEMY JESSICA Date/Time of Note DATE: 01/18/19 TIME: 16:41 Hx of Present Illness This is an 88 yo female with DM and severe PAD, h/o revascularizations in the past, and OM of R foot. Pt was admitted here from 12/31/2018 to 01/05/2019 for worsening ischemic changes and non-healing ulcers of R foot. Prior to that admission, an outpatient X ray film suggested OM. Here MRI on 12/31/2018 showed mild bone marrow edema in R 4th toe proximal phalanx which could represent early OM or nonspecific stress reaction. Moderate soft tissue edema without evidence o f abscess, suggesting cellulitis. The wound culture on 12/31/2018 grew enterobacter, corynebacteria and stenotrophomonas. Pt was eventually sent home with a plan of completing IV ertapenem and PO levoflxoxacin for 6 weeks via PICC. Today Pt was underwent R iliofemoral endarterectomy. Post-op, Pt was admitted at ICU for close observation. Pt denies pain at this time. Dr. Jessica requested ID consultation on this Pt. Subjective hx not possible: pt non-verbal, pt critical, pt critical status Musculoskeletal: No bone/joint pain Past Medical History Medical History: renal disease, other (PVD, A fib) Home Meds Reported Medications Hydrocodone/Acetaminophen ([place] 5-325 Tablet) 1 Each Tablet, 1 EACH PO Q6 PRN for PAIN, TAB 01/18/19 Acetaminophen* (Acetaminophen*) 500 MG Extra Strength Tablet, 1000 MG PO Q6H PRN for PAIN AND OR ELEVATED TEMP, TAB 01/18/19 Gabapentin* (Gabapentin*) 300 Mg Capsule, 300 MG PO TID, #90 CAP 01/18/19 Cholecalciferol* (Vitamin D3*) 1,000 Unit Tablet, 1000 UNIT PO DAILY, TAB 01/18/19 Meclizine Hcl* (Meclizine Hcl*) 25 Mg Tablet, 25 MG PO Q6 PRN for DIZZINESS, TAB 01/18/19 Aspirin (Low Dose Aspirin) 81 Mg Tablet.dr, 81 MG PO DAILY, #30 TAB 01/18/19 Metoprolol Tartrate* (Lopressor*) 25 Mg Tab, 25 MG PO BID, #60 TAB 01/18/19 Pravastatin Sodium* (Pravastatin Sodium*) 20 Mg Tablet, 20 MG PO HS, TAB 01/18/19 Pantoprazole* (Protonix*) 40 Mg Tablet.dr, 40 MG PO DAILY, TAB 01/18/19 Alendronate Sodium* (Fosamax*) 70 Mg Tablet, 70 MG PO EVERY MONDAY, #4 TAB 01/18/19 Discontinued Reported Medications Alendronate Sodium* (Alendronate Sodium*) 40 Mg Tablet, 70 MG PO weekly, #30 TAB 12/31/18 Pantoprazole* (Pantoprazole*) 40 Mg Tablet.dr, 40 MG PO DAILY, TAB 12/31/18 Alendronate Sodium* (Fosamax*) 70 Mg Tablet, 70 MG PO Q7D, #4 TAB 12/07/18 Pravastatin Sodium* (Pravastatin Sodium*) 80 Mg Tablet, 80 MG PO HS, TAB 12/07/18 Cholecalciferol* (Vitamin D3*) 1,000 Unit Tablet, 1000 UNIT PO DAILY, TAB 12/07/18 Lisinopril* (Lisinopril*) 2.5 Mg Tablet, 2.5 MG PO DAILY, #30 TAB 12/07/18 Discontinued Scripts Lactobacillus Rhamnosus GG (Culturelle) 1 Each Capsule, 1 CAP PO BID for 14 Days, #28 CAP otc Prov:BASSAM CRUMP MD 01/05/19 Levofloxacin* (Levaquin*) 500 Mg Tablet, 500 MG PO Q48H for 42 Days, #25 TAB Prov:CONY MALONEY MD 01/04/19 Sodium Hypochlorite (Di-Dak-Fern) 473 Ml Solution, 1 APPLIC TP BID for 10 Days, #1 1 Refill 1 week supply and 1 refill Prov:CONY MALONEY MD 01/04/19 Collagenase* (Santyl*) 30 Gm Oint..gm., 1 APPLIC TOP DAILY for 10 Days, #10 1 Refill Dispense 1 week supply and 1 refill Prov:CONY MALONEY MD 01/04/19 Hydrocodone Bit-Acetaminophen (Hydrocodone Bit-APAP) 5-325MG Tablet, 1 TAB PO Q6H PRN for .MOD PAIN 4-6 for 5 Days, TAB Prov:CONY MALONEY MD 01/04/19 Acetaminophen* (Tylenol*) 325 Mg Tablet, 650 MG PO Q6H PRN for .PAIN 1-3 OR TEMP for 5 Days, TAB Prov:CONY MALONEY MD 01/04/19 Metoprolol Tartrate* (Lopressor*) 50 Mg Tab, 50 MG PO BID for 15 Days, #30 TAB Prov:CONY MALONEY MD 01/04/19 Apixaban* (Eliquis*) 5 Mg Tablet, 2.5 MG PO BID for 30 Days, #14 TAB 2 Refills Prov:CONY MALONEY MD 01/04/19 Medications Current Medications Sodium Chloride 1,000 ml @ 0 mls/hr Q0M IV ; Start 01/18/19 at 08:00 Hydromorphone HCl (Dilaudid) 0.2 mg PACU PRN IV MILD PAIN 1-3; Start 01/18/19 at 09:30; Stop 01/18/19 at 17:00 Fentanyl (Sublimaze) 25 mcg PACU ORDER PRN IV MILD PAIN 1-3; Start 01/18/19 at 09:30; Stop 01/18/19 at 17:00 Ondansetron HCl (Zofran Inj) 4 mg PACU ORDER PRN IV NAUSEA/VOMITING; Start 01/18/19 at 09:30; Stop 01/18/19 at 17:00 Metoclopramide HCl (Reglan) 10 mg PACU ORDER PRN IV NAUSEA/VOMITING; Start 01/18/19 at 09:30; Stop 01/18/19 at 17:00 Albuterol (Proventil 0.083% (Neb)) 2.5 mg PACU ORDER PRN HHN .WHEEZING; Start 01/18/19 at 09:30; Stop 01/18/19 at 17:00 Diphenhydramine HCl (Benadryl) 25 mg PACU ORDER PRN IV .PRURITUS; Start 01/18/19 at 09:30; Stop 01/18/19 at 17:00 IV Flush (NS 3 ml) 3 ml PER PROTOCOL IV ; Start 01/18/19 at 12:00 Ondansetron HCl (Zofran Inj) 4 mg Q6H PRN IV NAUSEA/VOMITING; Start 01/18/19 at 12:00 Acetaminophen (Tylenol Tab) 650 mg Q6H PRN PO .PAIN 1-3 OR TEMP; Start 01/18/19 at 12:00 Acetaminophen/ Hydrocodone Bitart ([place] (5/325)) 1 tab Q6H PRN PO .MOD PAIN 4- 6; Start 01/18/19 at 12:00 Morphine Sulfate (morphine) 2 mg Q4H PRN IV .SEVERE PAIN 7-10 Last administered on 01/18/19at 14:17; Admin Dose 2 MG; Start 01/18/19 at 12:00 Docusate Sodium (Colace) 100 mg Q12H PRN PO .CONSTIPATION; Start 01/18/19 at 12:00 Magnesium Hydroxide (Milk Of Mag) 30 ml DAILY PRN PO .CONSTIPATION; Start 01/18/19 at 12:00 Lorazepam (Ativan) 0.5 mg Q6H PRN IV ANXIETY; Start 01/18/19 at 12:00 Albuterol/ Ipratropium (Duoneb) 3 ml Q4H RESP THERAPY PRN HHN SHORTNESS OF BREATH; Start 01/18/19 at 12:00 Hydralazine HCl (Apresoline) 10 mg Q6H PRN IV SBP GREATER THAN 180; Start 01/18/19 at 12:00 Nitroglycerin (Nitroglycerin (Sl Tab) 0.4 Mg) 1 tab Q5M PRN SL ANGINA; Start 01/18/19 at 12:00 Cholecalciferol (Vitamin D) 1,000 unit DAILY PO ; Start 01/19/19 at 09:00 Gabapentin (Neurontin) 300 mg TID PO Last administered on 01/18/19at 14:02; Admin Dose 300 MG; Start 01/18/19 at 13:00 Meclizine HCl (Antivert) 25 mg Q6H PRN PO DIZZINESS; Start 01/18/19 at 12:00 Metoprolol Tartrate (Lopressor) 25 mg BID PO ; Start 01/18/19 at 21:00 Pantoprazole (Protonix Tab) 40 mg DAILY PO ; Start 01/19/19 at 09:00 Atorvastatin Calcium (Lipitor) 10 mg HS PO ; Start 01/18/19 at 21:00 Ertapenem 0.5 gm/ Sodium Chloride 100 ml @ 200 mls/hr Q24H IVPB Last administered on 01/18/19at 15:43; Admin Dose 200 MLS/HR; Start 01/18/19 at 14:00 Diagnostic Test (Pha) (Accu-Chek) 1 ea 02 XX ; Start 01/19/19 at 02:00 Insulin Aspart (Novolog Insulin Pen) NOVOLOG *MILD* ALGORI... Q4 SC ; Start 01/18/19 at 13:00 Levofloxacin (Levaquin) 500 mg Q48H PO ; Start 01/18/19 at 17:00; Status UNV Allergies: Coded Allergies: Penicillins (Verified Allergy, Unknown, rash, 01/18/19) Past Surgical History Past Surgical Hx: other (1. Right iliofemoral endarterectomy 2. abdominal aor togram with right lower extremity runoff) Social History Smoking Status: Never smoker Exam/Review of Systems Exam Vitals Vital Signs Date Temp Pulse Resp B/P (MAP) Pulse Ox O2 O2 Flow FiO2 Time Delivery Rate 01/18/19 91 16:00 01/18/19 18 144/56 14:32 (85) 01/18/19 100 Room Air 14:17 01/18/19 3.0 14:00 01/18/19 98.6 10:32 Constitutional: other (alseep, would answer only a few questions) Psych: other (lethargic) Head: normocephalic, atraumatic Eyes: nl conjunctiva, nl lids, nl sclera ENMT: nl external ears & nose, nl nasal mucosa & septum, mucosa pink and moist Neck: non-tender Respiratory: clear to auscultation, normal air movement Cardiovascular: regular rate and rhythm, nl pulses, edema, other (both feet are warm to touch) Gastrointestinal: soft, non-tender; No tender Genitourinary - Female: other (FC) Extremities: edema Neurological: lethargic Skin: other (chronic skin changes of R foot and toes) Results Result Diagram: 01/18/19 0643 01/18/19 0643 Results 24hrs Laboratory Tests Test 01/18/19 06:43 01/18/19 06:50 01/18/19 11:15 White Blood Count 8.3 Red Blood Count 3.37 L Hemoglobin 9.1 L Hematocrit 29.6 L Mean Corpuscular Volume 87.8 Mean Corpuscular Hemoglobin 27.0 L Mean Corpuscular Hemoglobin Concent 30.7 L Red Cell Distribution Width 13.3 Platelet Count 292 Mean Platelet Volume 9.6 Immature Granulocytes % 0.200 Neutrophils % 59.3 Lymphocytes % 25.7 Monocytes % 9.5 Eosinophils % 4.5 Basophils % 0.8 Nucleated Red Blood Cells % 0.0 Immature Granulocytes # 0.020 Neutrophils # 4.9 Lymphocytes # 2.1 Monocytes # 0.8 Eosinophils # 0.4 Basophils # 0.1 Nucleated Red Blood Cells # 0.0 CBC Results Faxed/Phoned 1 *H Prothrombin Time 13.6 Prothrombin Time Ratio 1.1 INR International Normalized Ratio 1.03 Activated Partial Thromboplast Time 31.1 Sodium Level 139 Potassium Level 5.1 Chloride Level 106 Carbon Dioxide Level 23 Anion Gap 10 Blood Urea Nitrogen 39 H Creatinine 1.69 H Est Glomerular Filtrat Rate mL/min Glucose Level 87 Calcium Level 8.7 Total Bilirubin 0.3 Direct Bilirubin 0.00 Indirect Bilirubin 0.3 Aspartate Amino Transf (AST/SGOT) 24 Alanine Aminotransferase (ALT/SGPT) 15 Alkaline Phosphatase 90 Total Protein 6.6 Albumin 3.3 Globulin 3.30 H Albumin/Globulin Ratio 1.00 Bedside Glucose 91 92 Medications Medication Current Medications Sodium Chloride 1,000 ml @ 0 mls/hr Q0M IV ; Start 01/18/19 at 08:00 Hydromorphone HCl (Dilaudid) 0.2 mg PACU PRN IV MILD PAIN 1-3; Start 01/18/19 at 09:30; Stop 01/18/19 at 17:00 Fentanyl (Sublimaze) 25 mcg PACU ORDER PRN IV MILD PAIN 1-3; Start 01/18/19 at 09:30; Stop 01/18/19 at 17:00 Ondansetron HCl (Zofran Inj) 4 mg PACU ORDER PRN IV NAUSEA/VOMITING; Start 01/18/19 at 09:30; Stop 01/18/19 at 17:00 Metoclopramide HCl (Reglan) 10 mg PACU ORDER PRN IV NAUSEA/VOMITING; Start 01/18/19 at 09:30; Stop 01/18/19 at 17:00 Albuterol (Proventil 0.083% (Neb)) 2.5 mg PACU ORDER PRN HHN .WHEEZING; Start 01/18/19 at 09:30; Stop 01/18/19 at 17:00 Diphenhydramine HCl (Benadryl) 25 mg PACU ORDER PRN IV .PRURITUS; Start 01/18/19 at 09:30; Stop 01/18/19 at 17:00 IV Flush (NS 3 ml) 3 ml PER PROTOCOL IV ; Start 01/18/19 at 12:00 Ondansetron HCl (Zofran Inj) 4 mg Q6H PRN IV NAUSEA/VOMITING; Start 01/18/19 at 12:00 Acetaminophen (Tylenol Tab) 650 mg Q6H PRN PO .PAIN 1-3 OR TEMP; Start 01/18/19 at 12:00 Acetaminophen/ Hydrocodone Bitart ([place] (5/325)) 1 tab Q6H PRN PO .MOD PAIN 4- 6; Start 01/18/19 at 12:00 Morphine Sulfate (morphine) 2 mg Q4H PRN IV .SEVERE PAIN 7-10 Last administered on 01/18/19at 14:17; Admin Dose 2 MG; Start 01/18/19 at 12:00 Docusate Sodium (Colace) 100 mg Q12H PRN PO .CONSTIPATION; Start 01/18/19 at 12:00 Magnesium Hydroxide (Milk Of Mag) 30 ml DAILY PRN PO .CONSTIPATION; Start 01/18/19 at 12:00 Lorazepam (Ativan) 0.5 mg Q6H PRN IV ANXIETY; Start 01/18/19 at 12:00 Albuterol/ Ipratropium (Duoneb) 3 ml Q4H RESP THERAPY PRN HHN SHORTNESS OF BREATH; Start 01/18/19 at 12:00 Hydralazine HCl (Apresoline) 10 mg Q6H PRN IV SBP GREATER THAN 180; Start 01/18/19 at 12:00 Nitroglycerin (Nitroglycerin (Sl Tab) 0.4 Mg) 1 tab Q5M PRN SL ANGINA; Start 01/18/19 at 12:00 Cholecalciferol (Vitamin D) 1,000 unit DAILY PO ; Start 01/19/19 at 09:00 Gabapentin (Neurontin) 300 mg TID PO Last administered on 01/18/19at 14:02; Admin Dose 300 MG; Start 01/18/19 at 13:00 Meclizine HCl (Antivert) 25 mg Q6H PRN PO DIZZINESS; Start 01/18/19 at 12:00 Metoprolol Tartrate (Lopressor) 25 mg BID PO ; Start 01/18/19 at 21:00 Pantoprazole (Protonix Tab) 40 mg DAILY PO ; Start 01/19/19 at 09:00 Atorvastatin Calcium (Lipitor) 10 mg HS PO ; Start 01/18/19 at 21:00 Ertapenem 0.5 gm/ Sodium Chloride 100 ml @ 200 mls/hr Q24H IVPB Last administered on 01/18/19at 15:43; Admin Dose 200 MLS/HR; Start 01/18/19 at 14:00 Diagnostic Test (Pha) (Accu-Chek) 1 ea 02 XX ; Start 01/19/19 at 02:00 Insulin Aspart (Novolog Insulin Pen) NOVOLOG *MILD* ALGORI... Q4 SC ; Start 01/18/19 at 13:00 Levofloxacin (Levaquin) 500 mg Q48H PO ; Start 01/18/19 at 17:00; Status JAQUELINE YOU M.D. Jan 18, 2019 16:51
--- NOTE | 2019-01-18 17:34 | CONS ---
Assessment/Plan Assessment/Plan Assessment/Plan (Daily) Right foot diabetic foot ulceration Right foot osteomyelitis. Right foot gangrene Peripheral arterial disease with subtotal occlusion of the right common femoral artery s/p KITCHEN STEWARD/STEWARDESS endearterectomy DM2 with peripheral neuropathy Edema Plan Appreciate vascular intervention. Will allow patient to demarcate and plan for procedure once completely demarcated. Continue with IV abx per recommendations. Previous wound Cx had shown e.cloacae, corynebacterium, and stenotrophomonas maltophilia. Recommend betadine paint to the gangrenous areas with dry dressings. Offload heels while resting in bed. Consultation Date/Type/Reason Admit Date/Time Jan 18, 2019 at 06:06 Date/Time of Note DATE: 01/18/19 TIME: 17:33 Hx of Present Illness 88-year-old female with chronic ulceration known to have peripheral arterial disease and is now s/p KITCHEN STEWARD/STEWARDESS endarterectomy. 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 Patient currently in ICU after vascular surgery. Patient reports pain to the ulceration site rates 6/10 sharp in nature. ROS Negative except for HPI Past Medical History Diabetes type 2, hypertension, atrial fibrillation, peripheral arterial disease, right lower extremity diabetic foot ulceration, history of right common femoral subtotal occlusion. Medical History: renal disease, other (PVD, A fib) Home Meds Reported Medications Hydrocodone/Acetaminophen (Silver 5-325 Tablet) 1 Each Tablet, 1 EACH PO Q6 PRN for PAIN, TAB 01/18/19 Acetaminophen* (Acetaminophen*) 500 MG Extra Strength Tablet, 1000 MG PO Q6H PRN for PAIN AND OR ELEVATED TEMP, TAB 01/18/19 Gabapentin* (Gabapentin*) 300 Mg Capsule, 300 MG PO TID, #90 CAP 01/18/19 Cholecalciferol* (Vitamin D3*) 1,000 Unit Tablet, 1000 UNIT PO DAILY, TAB 01/18/19 Meclizine Hcl* (Meclizine Hcl*) 25 Mg Tablet, 25 MG PO Q6 PRN for DIZZINESS, TAB 01/18/19 Aspirin (Low Dose Aspirin) 81 Mg Tablet.dr, 81 MG PO DAILY, #30 TAB 01/18/19 Metoprolol Tartrate* (Lopressor*) 25 Mg Tab, 25 MG PO BID, #60 TAB 01/18/19 Pravastatin Sodium* (Pravastatin Sodium*) 20 Mg Tablet, 20 MG PO HS, TAB 01/18/19 Pantoprazole* (Protonix*) 40 Mg Tablet.dr, 40 MG PO DAILY, TAB 01/18/19 Alendronate Sodium* (Fosamax*) 70 Mg Tablet, 70 MG PO EVERY MONDAY, #4 TAB 01/18/19 Discontinued Reported Medications Alendronate Sodium* (Alendronate Sodium*) 40 Mg Tablet, 70 MG PO weekly, #30 TAB 12/31/18 Pantoprazole* (Pantoprazole*) 40 Mg Tablet.dr, 40 MG PO DAILY, TAB 12/31/18 Alendronate Sodium* (Fosamax*) 70 Mg Tablet, 70 MG PO Q7D, #4 TAB 12/07/18 Pravastatin Sodium* (Pravastatin Sodium*) 80 Mg Tablet, 80 MG PO HS, TAB 12/07/18 Cholecalciferol* (Vitamin D3*) 1,000 Unit Tablet, 1000 UNIT PO DAILY, TAB 12/07/18 Lisinopril* (Lisinopril*) 2.5 Mg Tablet, 2.5 MG PO DAILY, #30 TAB 12/07/18 Discontinued Scripts Lactobacillus Rhamnosus GG (Culturelle) 1 Each Capsule, 1 CAP PO BID for 14 Days, #28 CAP otc Prov:BASSAM CRUMP MD 01/05/19 Levofloxacin* (Levaquin*) 500 Mg Tablet, 500 MG PO Q48H for 42 Days, #25 TAB Prov:CONY MALONEY MD 01/04/19 Sodium Hypochlorite (Di-Dak-Fern) 473 Ml Solution, 1 APPLIC TP BID for 10 Days, #1 1 Refill 1 week supply and 1 refill Prov:CONY MALONEY MD 01/04/19 Collagenase* (Santyl*) 30 Gm Oint..gm., 1 APPLIC TOP DAILY for 10 Days, #10 1 Refill Dispense 1 week supply and 1 refill Prov:CONY MALONEY MD 01/04/19 Hydrocodone Bit-Acetaminophen (Hydrocodone Bit-APAP) 5-325MG Tablet, 1 TAB PO Q6H PRN for .MOD PAIN 4-6 for 5 Days, TAB Prov:CONY MALONEY MD 01/04/19 Acetaminophen* (Tylenol*) 325 Mg Tablet, 650 MG PO Q6H PRN for .PAIN 1-3 OR TEMP for 5 Days, TAB Prov:CONY MALONEY MD 01/04/19 Metoprolol Tartrate* (Lopressor*) 50 Mg Tab, 50 MG PO BID for 15 Days, #30 TAB Prov:CONY MALONEY MD 01/04/19 Apixaban* (Eliquis*) 5 Mg Tablet, 2.5 MG PO BID for 30 Days, #14 TAB 2 Refills Prov:CONY MALONEY MD 01/04/19 Medications Current Medications Sodium Chloride 1,000 ml @ 0 mls/hr Q0M IV ; Start 01/18/19 at 08:00 IV Flush (NS 3 ml) 3 ml PER PROTOCOL IV ; Start 01/18/19 at 12:00 Ondansetron HCl (Zofran Inj) 4 mg Q6H PRN IV NAUSEA/VOMITING; Start 01/18/19 at 12:00 Acetaminophen (Tylenol Tab) 650 mg Q6H PRN PO .PAIN 1-3 OR TEMP; Start 01/18/19 at 12:00 Acetaminophen/ Hydrocodone Bitart (Silver (5/325)) 1 tab Q6H PRN PO .MOD PAIN 4- 6; Start 01/18/19 at 12:00 Morphine Sulfate (morphine) 2 mg Q4H PRN IV .SEVERE PAIN 7-10 Last administered on 01/18/19at 14:17; Admin Dose 2 MG; Start 01/18/19 at 12:00 Docusate Sodium (Colace) 100 mg Q12H PRN PO .CONSTIPATION; Start 01/18/19 at 12:00 Magnesium Hydroxide (Milk Of Mag) 30 ml DAILY PRN PO .CONSTIPATION; Start 01/18/19 at 12:00 Lorazepam (Ativan) 0.5 mg Q6H PRN IV ANXIETY; Start 01/18/19 at 12:00 Albuterol/ Ipratropium (Duoneb) 3 ml Q4H RESP THERAPY PRN HHN SHORTNESS OF BREATH; Start 01/18/19 at 12:00 Hydralazine HCl (Apresoline) 10 mg Q6H PRN IV SBP GREATER THAN 180; Start 01/18/19 at 12:00 Nitroglycerin (Nitroglycerin (Sl Tab) 0.4 Mg) 1 tab Q5M PRN SL ANGINA; Start 01/18/19 at 12:00 Cholecalciferol (Vitamin D) 1,000 unit DAILY PO ; Start 01/19/19 at 09:00 Gabapentin (Neurontin) 300 mg TID PO Last administered on 01/18/19at 14:02; Admin Dose 300 MG; Start 01/18/19 at 13:00 Meclizine HCl (Antivert) 25 mg Q6H PRN PO DIZZINESS; Start 01/18/19 at 12:00 Metoprolol Tartrate (Lopressor) 25 mg BID PO ; Start 01/18/19 at 21:00 Pantoprazole (Protonix Tab) 40 mg DAILY PO ; Start 01/19/19 at 09:00 Atorvastatin Calcium (Lipitor) 10 mg HS PO ; Start 01/18/19 at 21:00 Ertapenem 0.5 gm/ Sodium Chloride 100 ml @ 200 mls/hr Q24H IVPB Last administered on 01/18/19at 15:43; Admin Dose 200 MLS/HR; Start 01/18/19 at 14:00 Diagnostic Test (Pha) (Accu-Chek) 1 ea 02 XX ; Start 01/19/19 at 02:00 Insulin Aspart (Novolog Insulin Pen) NOVOLOG *MILD* ALGORI... Q4 SC ; Start 01/18/19 at 13:00 Levofloxacin (Levaquin) 500 mg Q48H PO ; Start 01/18/19 at 17:00 Allergies: Coded Allergies: Penicillins (Verified Allergy, Unknown, rash, 01/18/19) Past Surgical History KITCHEN STEWARD/STEWARDESS endearterectomy, previous vascular interventions Past Surgical Hx: other (1. Right iliofemoral endarterectomy 2. abdominal a ortogram with right lower extremity runoff) Family History Significant Family History: diabetes Social History Alcohol Use: none Smoking Status: Never smoker Drug Use: none Exam/Review of Systems Exam Vitals Vital Signs Date Temp Pulse Resp B/P (MAP) Pulse Ox O2 O2 Flow FiO2 Time Delivery Rate 01/18/19 97.7 92 20 144/54 Room Air 17:00 (84) 01/18/19 100 16:07 01/18/19 3.0 14:00 Exam The patient with brawny appearing skin. Pedal pulses are nonpalpable. There is ulceration at the lateral aspect of the fourth toe base with lesion that appears punched out and probes down to tendon 2 x 2 x 0.5cm. No erythema. No instability of the toe noted. Absent protective sensations. There is gangrene noted to the right 4th digit and as well as ischemic changes noted to the lesser digits with ecchymosis to the right lateral foot. Left foot has a localized edema to the sinus tarsi region. Results Result Diagram: 01/18/19 0643 01/18/19 0643 Results 24hrs Laboratory Tests Test 01/18/19 06:43 01/18/19 06:50 01/18/19 11:15 01/18/19 17:17 White Blood Count 8.3 Red Blood Count 3.37 L Hemoglobin 9.1 L Hematocrit 29.6 L Mean Corpuscular 87.8 Volume Mean Corpuscular 27.0 L Hemoglobin Mean Corpuscular 30.7 L Hemoglobin Concent Red Cell 13.3 Distribution Width Platelet Count 292 Mean Platelet Volume 9.6 Immature 0.200 Granulocytes % Neutrophils % 59.3 Lymphocytes % 25.7 Monocytes % 9.5 Eosinophils % 4.5 Basophils % 0.8 Nucleated Red Blood 0.0 Cells % Immature 0.020 Granulocytes # Neutrophils # 4.9 Lymphocytes # 2.1 Monocytes # 0.8 Eosinophils # 0.4 Basophils # 0.1 Nucleated Red Blood 0.0 Cells # CBC Results 1 *H Faxed/Phoned Prothrombin Time 13.6 Prothrombin Time 1.1 Ratio INR International 1.03 Normalized Ratio Activated 31.1 Partial Thromboplast Time Sodium Level 139 Potassium Level 5.1 Chloride Level 106 Carbon Dioxide Level 23 Anion Gap 10 Blood Urea Nitrogen 39 H Creatinine 1.69 H Est Glomerular Filtrat Rate mL/min Glucose Level 87 Calcium Level 8.7 Total Bilirubin 0.3 Direct Bilirubin 0.00 Indirect Bilirubin 0.3 Aspartate Amino 24 Transf (AST/SGOT) Alanine 15 Aminotransferase (AL T/SGPT) Alkaline Phosphatase 90 Total Protein 6.6 Albumin 3.3 Globulin 3.30 H Albumin/Globulin 1.00 Ratio Bedside Glucose 91 92 91 Medications Medication Current Medications Sodium Chloride 1,000 ml @ 0 mls/hr Q0M IV ; Start 6/28/19 at 08:00 IV Flush (NS 3 ml) 3 ml PER PROTOCOL IV ; Start 01/18/19 at 12:00 Ondansetron HCl (Zofran Inj) 4 mg Q6H PRN IV NAUSEA/VOMITING; Start 01/18/19 at 12:00 Acetaminophen (Tylenol Tab) 650 mg Q6H PRN PO .PAIN 1-3 OR TEMP; Start 01/18/19 at 12:00 Acetaminophen/ Hydrocodone Bitart (Silver (5/325)) 1 tab Q6H PRN PO .MOD PAIN 4- 6; Start 01/18/19 at 12:00 Morphine Sulfate (morphine) 2 mg Q4H PRN IV .SEVERE PAIN 7-10 Last administered on 01/18/19at 14:17; Admin Dose 2 MG; Start 01/18/19 at 12:00 Docusate Sodium (Colace) 100 mg Q12H PRN PO .CONSTIPATION; Start 01/18/19 at 12:00 Magnesium Hydroxide (Milk Of Mag) 30 ml DAILY PRN PO .CONSTIPATION; Start 01/18/19 at 12:00 Lorazepam (Ativan) 0.5 mg Q6H PRN IV ANXIETY; Start 01/18/19 at 12:00 Albuterol/ Ipratropium (Duoneb) 3 ml Q4H RESP THERAPY PRN HHN SHORTNESS OF BREATH; Start 01/18/19 at 12:00 Hydralazine HCl (Apresoline) 10 mg Q6H PRN IV SBP GREATER THAN 180; Start 01/18/19 at 12:00 Nitroglycerin (Nitroglycerin (Sl Tab) 0.4 Mg) 1 tab Q5M PRN SL ANGINA; Start 01/18/19 at 12:00 Cholecalciferol (Vitamin D) 1,000 unit DAILY PO ; Start 01/19/19 at 09:00 Gabapentin (Neurontin) 300 mg TID PO Last administered on 01/18/19at 14:02; Admin Dose 300 MG; Start 01/18/19 at 13:00 Meclizine HCl (Antivert) 25 mg Q6H PRN PO DIZZINESS; Start 01/18/19 at 12:00 Metoprolol Tartrate (Lopressor) 25 mg BID PO ; Start 01/18/19 at 21:00 Pantoprazole (Protonix Tab) 40 mg DAILY PO ; Start 01/19/19 at 09:00 Atorvastatin Calcium (Lipitor) 10 mg HS PO ; Start 01/18/19 at 21:00 Ertapenem 0.5 gm/ Sodium Chloride 100 ml @ 200 mls/hr Q24H IVPB Last administered on 01/18/19at 15:43; Admin Dose 200 MLS/HR; Start 01/18/19 at 14:00 Diagnostic Test (Pha) (Accu-Chek) 1 ea 02 XX ; Start 01/19/19 at 02:00 Insulin Aspart (Novolog Insulin Pen) NOVOLOG *MILD* ALGORI... Q4 SC ; Start 01/18/19 at 13:00 Levofloxacin (Levaquin) 500 mg Q48H PO ; Start 01/18/19 at 17:00 JUANI BAHENA DPM Jan 18, 2019 17:34
[2019-01-18] MEDS: LEVOFLOXACIN 500 MG TAB PO SCH (17:38)
[2019-01-18] MEDS: ATORVASTATIN 10 MG TAB PO SCH (20:44)
[2019-01-18] MEDS: METOPROLOL 25 MG TAB PO SCH (20:45)
[2019-01-19] VITALS (25 sets, daily range): BP systolic 84–130; BP diastolic 36–73; PULSE 85–103; RESP 16–30
[2019-01-19] MEDS: ACCU-CHEK XX SCH (01:54)
[2019-01-19] MEDS ORDERED: SOD CHLORIDE 0.9% 1,000 ML IV ONE (02:00)
[2019-01-19] MEDS: INSULIN ASPART [NOVOLOG] 3 ML PEN SC SCH ×4 (07:35→21:00)
[2019-01-19] MEDS: DAKINS 0.0125%(1/40) 473 ML SOLUTION TP SCH (08:29)
[2019-01-19] MEDS: GABAPENTIN 300 MG CAP PO SCH ×3 (08:37→20:58)
[2019-01-19] MEDS: CHOLECALCIFEROL 1,000 UNIT TAB PO SCH (08:37)
[2019-01-19] MEDS: PANTOPRAZOLE (EC) 40 MG TAB PO SCH (08:37)
[2019-01-19] MEDS: METOPROLOL 25 MG TAB PO SCH ×2 (08:38→20:53)
--- NOTE | 2019-01-19 09:23 | PN ---
Date/Time of Note Date/Time of Note DATE: 01/19/19 TIME: 09:11 Assessment/Plan VTE Prophylaxis Risk score (from Ns)>0 risk: 7 [place] [facility] [place] SCD contraindicated: other (surgery) Pharmacological prophylaxis: NA/contraindicated Pharm contraindication: surgical contra Lines/Catheters [facility] ([facility] PICC Line Central line still needed: Yes Urinary Cath still in place: Yes Reason Cath still needed: other (indicate) (immobile) Assessment/Plan Assessment/Plan 88-year-old woman with history of A fib, PAD, and diabetes now status post right iliofemoral endarterectomy (01/18) # Severe PAD - h/o revascularization in the past -again status post right iliofemoral endarterectomy 01/18. -follow-up postop recommendations from vascular surgery team continue antibiotics as previously ordered for osteomyelitis by ID team # Diabetic right foot ulcer with early osteomyelitis - ID on board and patient has been on a regimen of 6 weeks total of IV Ertapenem which we will continue today - Dr. Jackson following. # Diabetes Mellitus type 2 - ISS and accuchecks # Chronic kidney disease - at baseline - renally dose all medications # Atrial fibrillation - Previously on Eliquis 2.5 mg PO BID. - Will resume once clear from vascular surgery. # HTN - continue current medications # Anemia of chronic disease -Monitor DVT: None GI: Protonix 40 minutes critical care time spent with this patient. Result Diagram: 01/19/19 0500 01/19/19 0500 Subjective 24 Hr Interval Summary Free Text/Dictation No acute overnight events. Patient doing well. Pain adequatelly controlled. Daughter Amy was at the bedside. I updated her on the patient's status and plan. Exam/Review of Systems Exam Vitals Vital Signs Date Temp Pulse Resp B/P (MAP) Pulse Ox O2 O2 Flow FiO2 Time Delivery Rate 01/19/19 103 08:00 01/19/19 21 118/45 Nasal 3.0 07:00 (69) Cannula 01/19/19 99.2 100 04:00 Intake and Output 01/18/19 01/18/19 01/19/19 1515:00 23:00 07:00 IntakeIntake Total 560 ml 430 ml 1025 ml OutputOutput Total 720 ml 815 ml 510 ml BalanceBalance -160 ml -385 ml 515 ml Exam Gen: Frail elderly woman supine in bed, awake and alert. Head: normocephalic, atraumatic Eyes: nl conjunctiva, nl lids ENMT: nl external ears & nose, nl nasal mucosa & septum Neck: supple Respiratory: clear to auscultation B/L Cardiovascular: irregular rhythm Gastrointestinal: soft, non-tender Extremities: L foot faint DP palpable pulse. R foot dopplerable DP. Distal foot bandaged. Results Results 24hrs Laboratory Tests Test 01/18/19 11:15 01/18/19 12:42 01/18/19 17:17 01/18/19 18:05 Bedside Glucose 92 91 Free Thyroxine 1.94 H Erythrocyte 35 H Sedimentation Rate C-Reactive Protein 2.5 H Procalcitonin 0.05 Test 01/18/19 20:48 01/19/19 01:54 01/19/19 05:00 Bedside Glucose 96 92 White Blood Count 9.9 Red Blood Count 2.75 L Hemoglobin 7.6 L Hematocrit 24.3 L Mean Corpuscular 88.4 Volume Mean Corpuscular 27.6 L Hemoglobin Mean Corpuscular 31.3 L Hemoglobin Concent Red Cell 13.5 Distribution Width Platelet Count 231 # Mean Platelet Volume 9.6 Immature 0.300 Granulocytes % Neutrophils % 75.9 Lymphocytes % 13.8 L Monocytes % 9.5 Eosinophils % 0.1 Basophils % 0.4 Nucleated Red Blood 0.0 Cells % Immature 0.030 Granulocytes # Neutrophils # 7.5 Lymphocytes # 1.4 Monocytes # 0.9 Eosinophils # 0.0 Basophils # 0.0 Nucleated Red Blood 0.0 Cells # Sodium Level 140 Potassium Level 5.1 Chloride Level 112 H Carbon Dioxide Level 20 L Anion Gap 8 Blood Urea Nitrogen 27 #H Creatinine 1.33 H Est Glomerular Filtrat Rate mL/min Glucose Level 85 Hemoglobin A1c 6.4 H Calcium Level 7.4 L Phosphorus Level 3.2 Magnesium Level 1.7 Triglycerides Level 84 Cholesterol Level 84 L LDL Cholesterol, 38 Calculated HDL Cholesterol 29 L Cholesterol/HDL 2.8 Ratio Thyroid Stimulating 0.307 L Hormone (TSH) Medications Medication Current Medications Sodium Chloride 1,000 ml @ 0 mls/hr Q0M IV ; Start 01/18/19 at 08:00 IV Flush (NS 3 ml) 3 ml PER PROTOCOL IV ; Start 01/18/19 at 12:00 Ondansetron HCl (Zofran Inj) 4 mg Q6H PRN IV NAUSEA/VOMITING; Start 01/18/19 at 12:00 Acetaminophen (Tylenol Tab) 650 mg Q6H PRN PO .PAIN 1-3 OR TEMP; Start 01/18/19 at 12:00 Acetaminophen/ Hydrocodone Bitart ([place] (5/325)) 1 tab Q6H PRN PO .MOD PAIN 4- 6 Last administered on 01/19/19at 00:47; Admin Dose 1 TAB; Start 01/18/19 at 12:00 Morphine Sulfate (morphine) 2 mg Q4H PRN IV .SEVERE PAIN 7-10 Last administered on 01/18/19at 14:17; Admin Dose 2 MG; Start 01/18/19 at 12:00 Docusate Sodium (Colace) 100 mg Q12H PRN PO .CONSTIPATION; Start 01/18/19 at 12:00 Magnesium Hydroxide (Milk Of Mag) 30 ml DAILY PRN PO .CONSTIPATION; Start 01/18/19 at 12:00 Lorazepam (Ativan) 0.5 mg Q6H PRN IV ANXIETY; Start 01/18/19 at 12:00 Albuterol/ Ipratropium (Duoneb) 3 ml Q4H RESP THERAPY PRN HHN SHORTNESS OF BREATH; Start 01/18/19 at 12:00 Hydralazine HCl (Apresoline) 10 mg Q6H PRN IV SBP GREATER THAN 180; Start 01/18/19 at 12:00 Nitroglycerin (Nitroglycerin (Sl Tab) 0.4 Mg) 1 tab Q5M PRN SL ANGINA; Start 01/18/19 at 12:00 Cholecalciferol (Vitamin D) 1,000 unit DAILY PO Last administered on 01/19/19at 08:37; Admin Dose 1,000 UNIT; Start 01/19/19 at 09:00 Gabapentin (Neurontin) 300 mg TID PO Last administered on 01/19/19at 08:37; Admin Dose 300 MG; Start 01/18/19 at 13:00 Meclizine HCl (Antivert) 25 mg Q6H PRN PO DIZZINESS; Start 01/18/19 at 12:00 Metoprolol Tartrate (Lopressor) 25 mg BID PO Last administered on 01/19/19at 08:38; Admin Dose 25 MG; Start 01/18/19 at 21:00 Pantoprazole (Protonix Tab) 40 mg DAILY PO Last administered on 01/19/19 08:37; Admin Dose 40 MG; Start 01/19/19 at 09:00 Atorvastatin Calcium (Lipitor) 10 mg HS PO Last administered on 01/18/19at 20:44; Admin Dose 10 MG; Start 01/18/19 at 21:00 Ertapenem 0.5 gm/ Sodium Chloride 100 ml @ 200 mls/hr Q24H IVPB Last administered on 01/18/19at 15:43; Admin Dose 200 MLS/HR; Start 01/18/19 at 14:00 Diagnostic Test (Pha) (Accu-Chek) 1 ea 02 XX Last administered on 01/19/19at 01:54; Admin Dose 1 EA; Start 01/19/19 at 02:00 Levofloxacin (Levaquin) 500 mg Q48H PO Last administered on 01/18/19at 17:38; Admin Dose 500 MG; Start 01/18/19 at 17:00 Sodium Hypochlorite (Dakins Diluted (40)) 1 applic DAILY TP Last administered on 01/19/19at 08:29; Admin Dose 1 APPLIC; Start 01/19/19 at 09:00 Insulin Aspart (Novolog Insulin Pen) NOVOLOG *MILD* ALGORITHM WITH MEALS BEDTIME SC ; Start 01/19/19 at 07:35 REJI SPAIN MD Jan 19, 2019 09:23
--- NOTE | 2019-01-19 10:49 | PN ---
Date/Time of Note Date/Time of Note DATE: 01/19/19 TIME: 10:49 Assessment/Plan Lines/Catheters IV Catheter Type (from Nrs): PICC Line Baneg[place] in Place (from Nrs): Yes Assessment/Plan Assessment/Plan POD#1 s/p R iliofem EA by Dr Allen, did well, however now w/ hallucinations Plan: -Appreciate medical management -Follow up Podiatry and ID recs - appreciate their help -Pt ok from surgical standpoint for discharge, but now w/ hallucinations -- therefore, ok to transfer to floor and allow for reorientation then discharge when mental status improves and when ok per Dr. Juan's team -D/C [place], ok to get out of bed to chair/ambulation w/ assist -Ok to restart Eliquis -D/w RESPIRATORY DIRECTOR and Dr. Juan Subjective 24 Hr Interval Summary No events o/n, however, pt currently having some hallucinations Exam/Review of Systems Vital Signs Vitals Vital Signs Date Temp Pulse Resp B/P (MAP) Pulse Ox O2 O2 Flow FiO2 Time Delivery Rate 01/19/19 94 18 109/41 100 Nasal 2.0 10:00 (63) Cannula 01/19/19 99.2 08:00 Intake and Output 01/18/19 01/18/19 01/19/19 1414:59 22:59 06:59 IntakeIntake Total 560 ml 430 ml 1025 ml OutputOutput Total 520 ml 925 ml 530 ml BalanceBalance 40 ml -495 ml 495 ml Exam Free Text/Dictation Gen: awake, alert, NAD but only responds appropriately intermittently Extr: BLE warm, left warmer than R, R groin surgical site c/d/i, soft, no hematoma, good femoral pulse; non-palp distal pulses bilaterally; R foot 4/5 toe wounds dry Results Result Diagram: 01/19/19 0500 01/19/19 0500 HENRY WHEELER MD Jan 19, 2019 10:49
[2019-01-19] MEDS: ERTAPENEM SODIUM 0.5 GM in SOD CHLORIDE 0.9% 100 ML IVPB SCH (13:29)
[2019-01-19] MEDS ORDERED: LACTATED RINGER'S 500 ML IV ONE (16:30)
--- NOTE | 2019-01-19 16:45 | CONS ---
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 MRI on 12/31/2018 showed mild bone marrow edema in R 4th toe proximal phalanx which could represent early OM or nonspecific stress reaction. Moderate soft tissue edema without evidence of abscess, suggesting cellulitis. The wound culture on 12/31/2018 grew enterobacter, corynebacteria and stenotrophomonas - severe PAD - s/p R iliofemoral endarterectomy 01/18/2019 - h/o revascularization in the past - T2DM - Hgb A1c 6.8% - CKD - Atrial fib - HTN - Mild , mild AR/MR, and mild-mod TR - ACD recommendations: - continue ertapenem (initially started as meropenem 01/02/2019-) and levofloxacin (01/04/2019-) management d/w Pt's son in law and charge nurse Bridgett the critical care time I took to care for this Pt today was from 1530 to 1600 Consultation Date/Type/Reason Admit Date/Time Jan 18, 2019 at 06:06 Initial Consult Date 01/18/19 Type of Consult ID Requesting Provider: NOHEMY JESSICA Date/Time of Note DATE: 01/19/19 TIME: 16:43 24 HR Interval Summary Free Text/Dictation lethargic and limited Subjective hx not possible: pt non-verbal Detailed Summary Cardiovascular: other (pain from the surgical site) Exam/Review of Systems Exam Vitals Vital Signs Date Temp Pulse Resp B/P (MAP) Pulse Ox O2 O2 Flow FiO2 Time Delivery Rate 01/19/19 85 16:00 01/19/19 101/48 100 Nasal 2.0 13:00 (65) Cannula 01/19/19 98.9 12:00 Intake and Output 01/18/19 01/18/19 01/19/19 1515:00 23:00 07:00 IntakeIntake Total 560 ml 430 ml 1025 ml OutputOutput Total 720 ml 815 ml 510 ml BalanceBalance -160 ml -385 ml 515 ml Constitutional: non-verbal, frail Psych: no complaints, nl mood/affect Head: normocephalic, atraumatic Eyes: nl conjunctiva, nl lids, nl sclera ENMT: nl external ears & nose, mucosa pink and moist Respiratory: clear to auscultation, normal air movement Cardiovascular: regular rate and rhythm, nl pulses, other (R groin is dressed, fainy drainage on the gauze) Gastrointestinal: soft, non-tender; No distended, No tender Genitourinary - Female: other (FC) Musculoskeletal: swelling (R foot) Extremities: edema (RLE) Neurological: lethargic Skin: other (+erythema of R foot and R toes) Lymph: other (+lymphedema of RLE) Results Result Diagram: 01/19/19 0500 01/19/19 0500 Results 24hrs Laboratory Tests Test 01/18/19 17:17 01/18/19 18:05 01/18/19 20:48 01/19/19 01:54 Bedside Glucose 91 96 92 Erythrocyte 35 H Sedimentation Rate C-Reactive Protein 2.5 H Procalcitonin 0.05 Test 01/19/19 05:00 01/19/19 08:28 01/19/19 14:37 White Blood Count 9.9 Red Blood Count 2.75 L Hemoglobin 7.6 L Hematocrit 24.3 L Mean Corpuscular 88.4 Volume Mean Corpuscular 27.6 L Hemoglobin Mean Corpuscular 31.3 L Hemoglobin Concent Red Cell 13.5 Distribution Width Platelet Count 231 # Mean Platelet Volume 9.6 Immature 0.300 Granulocytes % Neutrophils % 75.9 Lymphocytes % 13.8 L Monocytes % 9.5 Eosinophils % 0.1 Basophils % 0.4 Nucleated Red Blood 0.0 Cells % Immature 0.030 Granulocytes # Neutrophils # 7.5 Lymphocytes # 1.4 Monocytes # 0.9 Eosinophils # 0.0 Basophils # 0.0 Nucleated Red Blood 0.0 Cells # Sodium Level 140 Potassium Level 5.1 Chloride Level 112 H Carbon Dioxide Level 20 L Anion Gap 8 Blood Urea Nitrogen 27 #H Creatinine 1.33 H Est Glomerular Filtrat Rate mL/min Glucose Level 85 Hemoglobin A1c 6.4 H Calcium Level 7.4 L Phosphorus Level 3.2 Magnesium Level 1.7 Triglycerides Level 84 Cholesterol Level 84 L LDL Cholesterol, 38 Calculated HDL Cholesterol 29 L Cholesterol/HDL 2.8 Ratio Thyroid Stimulating 0.307 L Hormone (TSH) Bedside Glucose 80 93 Medications Medication Current Medications Sodium Chloride 1,000 ml @ 0 mls/hr Q0M IV ; Start 01/18/19 at 08:00 IV Flush (NS 3 ml) 3 ml PER PROTOCOL IV ; Start 01/18/19 at 12:00 Ondansetron HCl (Zofran Inj) 4 mg Q6H PRN IV NAUSEA/VOMITING; Start 01/18/19 at 12:00 Acetaminophen (Tylenol Tab) 650 mg Q6H PRN PO .PAIN 1-3 OR TEMP; Start 01/18/19 at 12:00 Acetaminophen/ Hydrocodone Bitart ([place] (5/325)) 1 tab Q6H PRN PO .MOD PAIN 4- 6 Last administered on 01/19/19at 00:47; Admin Dose 1 TAB; Start 01/18/19 at 12:00 Morphine Sulfate (morphine) 2 mg Q4H PRN IV .SEVERE PAIN 7-10 Last administered on 01/18/19at 14:17; Admin Dose 2 MG; Start 01/18/19 at 12:00 Docusate Sodium (Colace) 100 mg Q12H PRN PO .CONSTIPATION; Start 01/18/19 at 12:00 Magnesium Hydroxide (Milk Of Mag) 30 ml DAILY PRN PO .CONSTIPATION; Start 01/18/19 at 12:00 Albuterol/ Ipratropium (Duoneb) 3 ml Q4H RESP THERAPY PRN HHN SHORTNESS OF BREATH; Start 01/18/19 at 12:00 Hydralazine HCl (Apresoline) 10 mg Q6H PRN IV SBP GREATER THAN 180; Start 01/18/19 at 12:00 Nitroglycerin (Nitroglycerin (Sl Tab) 0.4 Mg) 1 tab Q5M PRN SL ANGINA; Start 01/18/19 at 12:00 Cholecalciferol (Vitamin D) 1,000 unit DAILY PO Last administered on 01/19/19at 08:37; Admin Dose 1,000 UNIT; Start 01/19/19 at 09:00 Gabapentin (Neurontin) 300 mg TID PO Last administered on 01/19/19at 13:29; Admin Dose 300 MG; Start 01/18/19 at 13:00 Meclizine HCl (Antivert) 25 mg Q6H PRN PO DIZZINESS; Start 01/18/19 at 12:00 Metoprolol Tartrate (Lopressor) 25 mg BID PO Last administered on 01/19/19at 08:38; Admin Dose 25 MG; Start 01/18/19 at 21:00 Pantoprazole (Protonix Tab) 40 mg DAILY PO Last administered on 01/19/19 08:37; Admin Dose 40 MG; Start 01/19/19 at 09:00 Atorvastatin Calcium (Lipitor) 10 mg HS PO Last administered on 01/18/19at 20:44; Admin Dose 10 MG; Start 01/18/19 at 21:00 Ertapenem 0.5 gm/ Sodium Chloride 100 ml @ 200 mls/hr Q24H IVPB Last administered on 01/19/19at 13:29; Admin Dose 200 MLS/HR; Start 01/18/19 at 14:00 Diagnostic Test (Pha) (Accu-Chek) 1 ea 02 XX Last administered on 01/19/19at 01:54; Admin Dose 1 EA; Start 01/19/19 at 02:00 Levofloxacin (Levaquin) 500 mg Q48H PO Last administered on 01/18/19at 17:38; Admin Dose 500 MG; Start 01/18/19 at 17:00 Sodium Hypochlorite (Dakins Diluted ()) 1 applic DAILY TP Last administered on 01/19/19 08:29; Admin Dose 1 APPLIC; Start 01/19/19 at 09:00 Insulin Aspart (Novolog Insulin Pen) NOVOLOG *MILD* ALGORITHM WITH MEALS BEDTIME SC ; Start 01/19/19 at 07:35 Apixaban (Eliquis) 2.5 mg BID PO ; Start 01/19/19 at 21:00 Lactated Ringer's 500 ml @ 500 mls/hr Q1H ONCE IV Last administered on 01/19/19at 16:21; Admin Dose 500 MLS/HR; Start 01/19/19 at 16:30; Stop 01/19/19 at 17:29 JAQUELINE HUNTER M.D. Jan 19, 2019 16:45
[2019-01-19] MEDS: ACETAMINOPHEN 325 MG TAB PO PRN (16:53)
[2019-01-19] MEDS: LACTATED RINGER'S 1,000 ML IV SCH (19:43)
[2019-01-19] MEDS: APIXABAN 5 MG TABLET PO SCH (20:58)
[2019-01-19] MEDS: ATORVASTATIN 10 MG TAB PO SCH (20:58)
[2019-01-20 00:49] VITALS: BP 96/44; PULSE 95; RESP 18
[2019-01-20] MEDS: MELATONIN 3 MG TABLET PO SCH ×2 (01:46→22:26)
[2019-01-20] MEDS: ACCU-CHEK XX SCH (02:00)
[2019-01-20 04:05] VITALS: BP 108/49; PULSE 70; RESP 18
[2019-01-20 07:32] VITALS: BP 84/50; PULSE 61; RESP 18
[2019-01-20] MEDS: INSULIN ASPART [NOVOLOG] 3 ML PEN SC SCH ×4 (07:55→21:00)
[2019-01-20] MEDS: GABAPENTIN 300 MG CAP PO SCH ×3 (08:37→22:20)
[2019-01-20] MEDS: DAKINS 0.0125%(1/40) 473 ML SOLUTION TP SCH (08:37)
[2019-01-20] MEDS: APIXABAN 5 MG TABLET PO SCH ×2 (08:37→22:20)
[2019-01-20] MEDS: PANTOPRAZOLE (EC) 40 MG TAB PO SCH (08:37)
[2019-01-20] MEDS: CHOLECALCIFEROL 1,000 UNIT TAB PO SCH (08:37)
[2019-01-20] MEDS: METOPROLOL 25 MG TAB PO SCH ×2 (08:37→21:00)
[2019-01-20] MEDS: LACTATED RINGER'S 1,000 ML IV SCH (10:18)
[2019-01-20 12:01] VITALS: BP 97/50; PULSE 97; RESP 18
--- NOTE | 2019-01-20 13:56 | PN ---
Date/Time of Note Date/Time of Note DATE: 01/20/19 TIME: 13:50 Assessment/Plan VTE Prophylaxis Risk score (from Ns)>0 risk: 9 SCD applied (from Ns): No SCD contraindicated: other (no) Pharmacological prophylaxis: apixaban Lines/Catheters IV Catheter Type (from Nrs): PICC Line Central line still needed: Yes Urinary Cath still in place: No Assessment/Plan Assessment/Plan 88-year-old woman with history of A fib, PAD, and diabetes now status post right iliofemoral endarterectomy (01/18) #Delirium and hallucinations - This may be a prolonged postoperative reaction. - If continues to persist tomorrow, will ask ID about stopping ertapenem. I think this is the medication most likely contributing to her symptoms. - Avoid benzos, opioids, other sedating medications. # Severe PAD - h/o revascularization in the past - status post right iliofemoral endarterectomy 01/18. 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 - Dr. Jackson following. # Diabetes Mellitus type 2 - ISS and accuchecks # Chronic kidney disease - at baseline - renally dose all medications # Atrial fibrillation - Previously on Eliquis 2.5 mg PO BID. - Will resume once clear from vascular surgery. # HTN - continue current medications # Anemia of chronic disease -Monitor DVT: None GI: Protonix Dispo: Severe delirium and hallucinations after surgery, likely from ertapenem. After this resolves plan to discharge with home health. Result Diagram: 01/20/19 0553 01/20/19 0553 Subjective 24 Hr Interval Summary Free Text/Dictation Overnight and this morning, patient continues to demonstrate delirium and hallucinations. While I was at bedside with her granddaughter the patient asked us to turn off the stove and also caught an invisible butterfly and handed it to her granddaughter. She is A&O to name only. Patient got no sleep despite melatonin. Exam/Review of Systems Exam Vitals Vital Signs Date Temp Pulse Resp B/P (MAP) Pulse Ox O2 O2 Flow FiO2 Time Delivery Rate 01/20/19 98.8 97 18 97/50 (66) 91 12:01 01/20/19 Nasal 2.0 07:30 Cannula Intake and Output 01/19/19 01/19/19 01/20/19 1515:00 23:00 07:00 IntakeIntake Total 300 ml 820 ml 200 ml OutputOutput Total 260 ml 50 ml 0 ml BalanceBalance 40 ml 770 ml 200 ml Exam Gen: Frail elderly woman supine in bed, awake and alert. Head: normocephalic, atraumatic Eyes: nl conjunctiva, nl lids ENMT: nl external ears & nose, nl nasal mucosa & septum Neck: supple Respiratory: clear to auscultation B/L Cardiovascular: irregular rhythm Gastrointestinal: soft, non-tender Extremities: L foot faint DP palpable pulse. R foot dopplerable DP. Distal foot bandaged. Results Results 24hrs Laboratory Tests Test 01/19/19 14:37 01/19/19 19:41 01/19/19 21:01 01/20/19 05:53 Bedside Glucose 93 96 103 White Blood Count 13.6 #H Red Blood Count 2.93 L Hemoglobin 8.0 L Hematocrit 26.0 L Mean Corpuscular 88.7 Volume Mean Corpuscular 27.3 L Hemoglobin Mean Corpuscular 30.8 L Hemoglobin Concent Red Cell 13.7 Distribution Width Platelet Count 225 Mean Platelet Volume 9.5 Immature 0.500 H Granulocytes % Neutrophils % 79.7 H Lymphocytes % 10.0 L Monocytes % 9.1 Eosinophils % 0.4 Basophils % 0.3 Nucleated Red Blood 0.0 Cells % Immature 0.070 H Granulocytes # Neutrophils # 10.8 H Lymphocytes # 1.4 Monocytes # 1.2 H Eosinophils # 0.1 Basophils # 0.0 Nucleated Red Blood 0.0 Cells # Sodium Level 137 Potassium Level 5.2 H Chloride Level 108 Carbon Dioxide Level 22 Anion Gap 7 Blood Urea Nitrogen 29 H Creatinine 1.66 H Est Glomerular Filtrat Rate mL/min Glucose Level 76 Calcium Level 7.6 L Test 01/20/19 08:35 01/20/19 12:04 Bedside Glucose 72 110 Medications Medication Current Medications IV Flush (NS 3 ml) 3 ml PER PROTOCOL IV ; Start 01/18/19 at 12:00 Ondansetron HCl (Zofran Inj) 4 mg Q6H PRN IV NAUSEA/VOMITING; Start 01/18/19 at 12:00 Acetaminophen (Tylenol Tab) 650 mg Q6H PRN PO .PAIN 1-3 OR TEMP Last administered on 01/19/19 16:53; Admin Dose 650 MG; Start 01/18/19 at 12:00 Acetaminophen/ Hydrocodone Bitart ([place] (5/325)) 1 tab Q6H PRN PO .MOD PAIN 4- 6 Last administered on 01/19/19at 00:47; Admin Dose 1 TAB; Start 01/18/19 at 12:00 Morphine Sulfate (morphine) 2 mg Q4H PRN IV .SEVERE PAIN 7-10 Last administered on 01/18/19 14:17; Admin Dose 2 MG; Start 01/18/19 at 12:00 Docusate Sodium (Colace) 100 mg Q12H PRN PO .CONSTIPATION; Start 01/18/19 at 12:00 Magnesium Hydroxide (Milk Of Mag) 30 ml DAILY PRN PO .CONSTIPATION; Start 01/18/19 at 12:00 Albuterol/ Ipratropium (Duoneb) 3 ml Q4H RESP THERAPY PRN HHN SHORTNESS OF CARLIE TH; Start 01/18/19 at 12:00 Hydralazine HCl (Apresoline) 10 mg Q6H PRN IV SBP GREATER THAN 180; Start 01/18/19 at 12:00 Nitroglycerin (Nitroglycerin (Sl Tab) 0.4 Mg) 1 tab Q5M PRN SL ANGINA; Start 01/18/19 at 12:00 Cholecalciferol (Vitamin D) 1,000 unit DAILY PO Last administered on 01/20/19 08:37; Admin Dose 1,000 UNIT; Start 01/19/19 at 09:00 Gabapentin (Neurontin) 300 mg TID PO Last administered on 01/20/19 12:06; Admin Dose 300 MG; Start 01/18/19 at 13:00 Meclizine HCl (Antivert) 25 mg Q6H PRN PO DIZZINESS; Start 01/18/19 at 12:00 Metoprolol Tartrate (Lopressor) 25 mg BID PO Last administered on 01/19/19 08:38; Admin Dose 25 MG; Start 01/18/19 at 21:00 Pantoprazole (Protonix Tab) 40 mg DAILY PO Last administered on 01/20/19at 08:37; Admin Dose 40 MG; Start 01/19/19 at 09:00 Atorvastatin Calcium (Lipitor) 10 mg HS PO Last administered on 01/19/19 20:58; Admin Dose 10 MG; Start 01/18/19 at 21:00 Ertapenem 0.5 gm/ Sodium Chloride 100 ml @ 200 mls/hr Q24H IVPB Last adminis tered on 01/19/19 13:29; Admin Dose 200 MLS/HR; Start 01/18/19 at 14:00 Diagnostic Test (Pha) (Accu-Chek) 1 ea 02 XX Last administered on 01/19/19 01:54; Admin Dose 1 EA; Start 01/19/19 at 02:00 Levofloxacin (Levaquin) 500 mg Q48H PO Last administered on 01/18/19 17:38; Admin Dose 500 MG; Start 01/18/19 at 17:00 Sodium Hypochlorite (Dakins Diluted (40)) 1 applic DAILY TP Last administered on 01/20/19 08:37; Admin Dose 1 APPLIC; Start 01/19/19 at 09:00 Insulin Aspart (Novolog Insulin Pen) NOVOLOG *MILD* ALGORITHM WITH MEALS BEDTIME SC ; Start 01/19/19 at 07:35 Apixaban (Eliquis) 2.5 mg BID PO Last administered on 01/20/19 08:37; Admin Dose 2.5 MG; Start 01/19/19 at 21:00 Lactated Ringer's 1,000 ml @ 75 mls/hr [id number] IV Last administered on 01/20/19 10:18; Admin Dose 75 MLS/HR; Start 01/19/19 at 19:30 Melatonin (Melatonin) 3 mg HS PO Last administered on 01/20/19 01:46; Admin Dose 3 MG; Start 01/19/19 at 23:30 REJI SPAIN MD Jan 20, 2019 13:56
[2019-01-20] MEDS: ERTAPENEM SODIUM 0.5 GM in SOD CHLORIDE 0.9% 100 ML IVPB SCH (14:59)
[2019-01-20 15:29] VITALS: BP 105/59; PULSE 71; RESP 18
[2019-01-20] MEDS: LEVOFLOXACIN 500 MG TAB PO SCH (17:39)
[2019-01-20 20:00] VITALS: BP 90/51; PULSE 117; RESP 20
--- NOTE | 2019-01-20 20:54 | CONS ---
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 MRI on 12/31/2018 showed mild bone marrow edema in R 4th toe proximal phalanx which could represent early OM or nonspecific stress reaction. Moderate soft tissue edema without evidence of abscess, suggesting cellulitis. The wound culture on 12/31/2018 grew enterobacter, corynebacteria and stenotrophomonas - severe PAD - s/p R iliofemoral endarterectomy 01/18/2019 - h/o revascularization in the past - T2DM - Hgb A1c 6.8% - CKD - Atrial fib - HTN - Mild , mild AR/MR, and mild-mod TR - ACD - mental status change, hallucinations recommendations: - I suspect levofloxacin is causing mental status change and hallucinations, and so stopped it - continue ertapenem (initially started as meropenem 01/02/2019-) - the original plan is to complete 6 week course of antibiotics management d/w Pt's family members, Pt's RHODA Montiel and Dr. Juan Consultation Date/Type/Reason Admit Date/Time Jan 18, 2019 at 06:06 Initial Consult Date 01/18/19 Type of Consult ID Requesting Provider: NOHEMY JESSICA Date/Time of Note DATE: 01/20/19 TIME: 20:37 24 HR Interval Summary Free Text/Dictation confused and hallucinating. This started after the surgery. Subjective hx not possible: other (Pt thinks she is knitting. Next she sees chickens on the bathroom door) Exam/Review of Systems Exam Vitals Vital Signs Date Temp Pulse Resp B/P (MAP) Pulse Ox O2 O2 Flow FiO2 Time Delivery Rate 01/20/19 98.9 71 18 105/59 97 15:29 (74) 01/20/19 Nasal 2.0 07:30 Cannula Intake and Output 01/19/19 01/19/19 01/20/19 1515:00 23:00 07:00 IntakeIntake Total 300 ml 820 ml 200 ml OutputOutput Total 260 ml 50 ml 0 ml BalanceBalance 40 ml 770 ml 200 ml Constitutional: frail Psych: confusion Head: normocephalic, atraumatic Eyes: nl conjunctiva, nl lids ENMT: nl external ears & nose, nl nasal mucosa & septum, mucosa pink and moist Neck: non-tender Respiratory: clear to auscultation, normal air movement Cardiovascular: regular rate and rhythm, nl pulses Gastrointestinal: soft; No non-tender, No distended Genitourinary - Female: other (R groin: the surgical site is dressed, non- swollen and non-erythematous) Musculoskeletal: nl extremities to inspection Extremities: No edema Neurological: confused Skin: nl turgor Results Result Diagram: 01/20/19 0553 01/20/19 0553 Results 24hrs Laboratory Tests Test 01/19/19 21:01 01/20/19 05:53 01/20/19 08:35 01/20/19 12:04 Bedside Glucose 103 72 110 White Blood Count 13.6 #H Red Blood Count 2.93 L Hemoglobin 8.0 L Hematocrit 26.0 L Mean Corpuscular 88.7 Volume Mean Corpuscular 27.3 L Hemoglobin Mean Corpuscular 30.8 L Hemoglobin Concent Red Cell 13.7 Distribution Width Platelet Count 225 Mean Platelet Volume 9.5 Immature 0.500 H Granulocytes % Neutrophils % 79.7 H Lymphocytes % 10.0 L Monocytes % 9.1 Eosinophils % 0.4 Basophils % 0.3 Nucleated Red Blood 0.0 Cells % Immature 0.070 H Granulocytes # Neutrophils # 10.8 H Lymphocytes # 1.4 Monocytes # 1.2 H Eosinophils # 0.1 Basophils # 0.0 Nucleated Red Blood 0.0 Cells # Sodium Level 137 Potassium Level 5.2 H Chloride Level 108 Carbon Dioxide Level 22 Anion Gap 7 Blood Urea Nitrogen 29 H Creatinine 1.66 H Est Glomerular Filtrat Rate mL/min Glucose Level 76 Calcium Level 7.6 L Test 01/20/19 17:32 Bedside Glucose 86 Medications Medication Current Medications IV Flush (NS 3 ml) 3 ml PER PROTOCOL IV ; Start 01/18/19 at 12:00 Ondansetron HCl (Zofran Inj) 4 mg Q6H PRN IV NAUSEA/VOMITING; Start 01/18/19 at 12:00 Acetaminophen (Tylenol Tab) 650 mg Q6H PRN PO .PAIN 1-3 OR TEMP Last administered on 01/19/19at 16:53; Admin Dose 650 MG; Start 01/18/19 at 12:00 Acetaminophen/ Hydrocodone Bitart ([place] (5/325)) 1 tab Q6H PRN PO .MOD PAIN 4- 6 Last administered on 01/19/19at 00:47; Admin Dose 1 TAB; Start 01/18/19 at 12:00 Morphine Sulfate (morphine) 2 mg Q4H PRN IV .SEVERE PAIN 7-10 Last administered on 01/18/19at 14:17; Admin Dose 2 MG; Start 01/18/19 at 12:00 Docusate Sodium (Colace) 100 mg Q12H PRN PO .CONSTIPATION; Start 01/18/19 at 12:00 Magnesium Hydroxide (Milk Of Mag) 30 ml DAILY PRN PO .CONSTIPATION; Start 01/18/19 at 12:00 Albuterol/ Ipratropium (Duoneb) 3 ml Q4H RESP THERAPY PRN HHN SHORTNESS OF BREATH; Start 01/18/19 at 12:00 Hydralazine HCl (Apresoline) 10 mg Q6H PRN IV SBP GREATER THAN 180; Start 01/18/19 at 12:00 Nitroglycerin (Nitroglycerin (Sl Tab) 0.4 Mg) 1 tab Q5M PRN SL ANGINA; Start 01/18/19 at 12:00 Cholecalciferol (Vitamin D) 1,000 unit DAILY PO Last administered on 01/20/19at 08:37; Admin Dose 1,000 UNIT; Start 01/19/19 at 09:00 Gabapentin (Neurontin) 300 mg TID PO Last administered on 01/20/19at 12:06; Admin Dose 300 MG; Start 01/18/19 at 13:00 Meclizine HCl (Antivert) 25 mg Q6H PRN PO DIZZINESS; Start 01/18/19 at 12:00 Metoprolol Tartrate (Lopressor) 25 mg BID PO Last administered on 01/19/19at 08:38; Admin Dose 25 MG; Start 01/18/19 at 21:00 Pantoprazole (Protonix Tab) 40 mg DAILY PO Last administered on 01/20/19at 08:3 7; Admin Dose 40 MG; Start 01/19/19 at 09:00 Atorvastatin Calcium (Lipitor) 10 mg HS PO Last administered on 01/19/19at 20:58; Admin Dose 10 MG; Start 01/18/19 at 21:00 Ertapenem 0.5 gm/ Sodium Chloride 100 ml @ 200 mls/hr Q24H IVPB Last administered on 01/20/19 14:59; Admin Dose 200 MLS/HR; Start 01/18/19 at 14:00 Diagnostic Test (Pha) (Accu-Chek) 1 ea 02 XX Last administered on 01/19/19 01: 54; Admin Dose 1 EA; Start 01/19/19 at 02:00 Levofloxacin (Levaquin) 500 mg Q48H PO Last administered on 01/20/19 17:39; Admin Dose 500 MG; Start 01/18/19 at 17:00 Sodium Hypochlorite (Dakins Diluted ()) 1 applic DAILY TP Last administered on 01/20/19 08:37; Admin Dose 1 APPLIC; Start 01/19/19 at 09:00 Insulin Aspart (Novolog Insulin Pen) NOVOLOG *MILD* ALGORITHM WITH MEALS BEDTIME SC ; Start 01/19/19 at 07:35 Apixaban (Eliquis) 2.5 mg BID PO Last administered on 01/20/19 08:37; Admin Dose 2.5 MG; Start 01/19/19 at 21:00 Lactated Ringer's 1,000 ml @ 75 mls/hr [id number] IV Last administered on 01/20/19 10:18; Admin Dose 75 MLS/HR; Start 01/19/19 at 19:30 Melatonin (Melatonin) 3 mg HS PO Last administered on 01/20/19 01:46; Admin Dose 3 MG; Start 01/19/19 at 23:30 JAQUELINE HUNTER M.D. Jan 20, 2019 20:50
[2019-01-20] MEDS ORDERED: MELATONIN 3 MG TABLET PO SCH (21:00)
[2019-01-20] MEDS: ATORVASTATIN 10 MG TAB PO SCH (22:20)
[2019-01-21] VITALS (8 sets, daily range): BP systolic 77–139; BP diastolic 51–62; PULSE 81–116; RESP 18–20
[2019-01-21] MEDS: LACTATED RINGER'S 1,000 ML IV SCH ×2 (00:24→11:48)
[2019-01-21] MEDS: ACETAMINOPHEN 325 MG TAB PO PRN (00:33)
[2019-01-21] MEDS: ACCU-CHEK XX SCH (02:00)
--- NOTE | 2019-01-21 07:46 | PN ---
Date/Time of Note Date/Time of Note DATE: 01/21/19 TIME: 07:43 Assessment/Plan Lines/Catheters IV Catheter Type (from Nrs): PICC Line [place] in Place (from Nrs): No Assessment/Plan Assessment/Plan s/p R iliofemoral endarterectomy - incision looks good, foot is warm MS changes - likely delirium related to her age and stress of the surgery, now sleeping Home when OK with team Continue ASA daily Followup with me in the wound center next week after discharge Subjective 24 Hr Interval Summary Sleeping soundly, apparently she had not slept for 4 days and was hallucinating. Exam/Review of Systems Vital Signs Vitals Vital Signs Date Temp Pulse Resp B/P (MAP) Pulse Ox O2 O2 Flow FiO2 Time Delivery Rate 01/21/19 106 81/62 (68) 07:30 01/21/19 97.9 19 98 07:19 01/21/19 Nasal 3.0 04:30 Cannula Intake and Output 01/20/19 01/20/19 01/21/19 1515:00 23:00 07:00 IntakeIntake Total 440 ml 1165 ml OutputOutput Total 1 ml BalanceBalance 440 ml 1164 ml Exam Free Text/Dictation R groin incision is clean and dry, no hematoma R foot is warm, no signs of infection Results Result Diagram: 01/21/19 0554 01/21/19 0554 REJI AGUSTIN MD Jan 21, 2019 07:46
[2019-01-21] MEDS: INSULIN ASPART [NOVOLOG] 3 ML PEN SC SCH ×4 (07:55→20:48)
[2019-01-21] MEDS: PANTOPRAZOLE (EC) 40 MG TAB PO SCH (08:35)
[2019-01-21] MEDS: GABAPENTIN 300 MG CAP PO SCH ×3 (08:35→20:50)
[2019-01-21] MEDS: CHOLECALCIFEROL 1,000 UNIT TAB PO SCH (08:35)
[2019-01-21] MEDS: APIXABAN 5 MG TABLET PO SCH ×2 (08:36→20:49)
[2019-01-21] MEDS: DAKINS 0.0125%(1/40) 473 ML SOLUTION TP SCH (08:36)
[2019-01-21] MEDS: METOPROLOL 25 MG TAB PO SCH ×2 (08:37→20:49)
--- NOTE | 2019-01-21 10:55 | CONS ---
Assessment/Plan Assessment/Plan Hospital Course (Demo Recall) assessment/impression - SIRS vs sepsis - low grade temp, tachycardia, hypotension - Diabetic R foot ulcer with MRI suggestive of early OM (ESR 45). MRI on 12/31/2018 showed mild bone marrow edema in R 4th toe proximal phalanx which could represent early OM or nonspecific stress reaction. Moderate soft tissue edema without evidence of abscess, suggesting cellulitis. The wound culture on 12/31/2018 grew Enterobacter, Corynebacteria and Stenotrophomonas - severe PAD - s/p R iliofemoral endarterectomy 01/18/2019 - h/o revascularization in the past - T2DM - Hgb A1c 6.8% - CKD - Atrial fib - HTN - Mild , mild AR/MR, and mild-mod TR - ACD - mental status change, hallucinations recommendations: - ordered blood cultures x2, 15 min apart, UA, urine C&S, lactic acid, and p rocalcitonin - trend fever curve/VS - we suspect levofloxacin (01/18/2019-01/20/2019) is causing mental status change and hallucinations, and so stopped it - continue ertapenem (initially started as meropenem 01/02/2019-) - the original plan is to complete 6 week course of antibiotics Management d/w Pt's family members (son and daughter at bedside), RHODA Mccallum, and with Dr. Rubalcava Consultation Date/Type/Reason Admit Date/Time Jan 18, 2019 at 06:06 Initial Consult Date 01/18/19 Type of Consult Infectious Disease Requesting Provider: NOHEMY JESSICA Date/Time of Note DATE: 01/21/19 TIME: 10:48 24 HR Interval Summary Free Text/Dictation Pt hadn't slept for four days, was hallucinating, took melatonin x2 doses last night and is finally sleeping. Tmax 100.3F overnight and Tylenol was given; had episode of hypotension with SBP 77 this AM per d/w nursing. Pt hadn't eaten breakfast yet as she remains asleep per d/w pt's son and daughter. Subjective hx not possible: pt non-verbal Exam/Review of Systems Exam Vitals Vital Signs Date Temp Pulse Resp B/P (MAP) Pulse Ox O2 O2 Flow FiO2 Time Delivery Rate 01/21/19 Nasal 2.0 08:00 Cannula 01/21/19 106 81/62 (68) 07:30 01/21/19 97.9 19 98 07:19 Intake and Output 01/20/19 01/20/19 01/21/19 1515:00 23:00 07:00 IntakeIntake Total 440 ml 1465 ml 670 ml OutputOutput Total 1 ml BalanceBalance 440 ml 1464 ml 670 ml Constitutional: frail, other (asleep) Head: normocephalic, atraumatic Eyes: nl conjunctiva, nl lids ENMT: nl external ears & nose, nl nasal mucosa & septum Neck: non-tender Respiratory: clear to auscultation, normal air movement, other (On O2 at 2L via NC); No wheezing Cardiovascular: nl pulses, irregular rhythm (mildly tachycardic), systolic murmur Gastrointestinal: soft, non-tender; No distended Genitourinary - Female: other (R groin dressing c/d/i; No [place]; Towel is between pt's legs) Musculoskeletal: other (R foot wrapped with Kerlix c/d/i) Extremities: other (RUE PICC c/d/i) Neurological: other (asleep) Skin: nl turgor Results Result Diagram: 01/21/19 0554 01/21/19 0554 Results 24hrs Laboratory Tests Test 01/20/19 12:04 01/20/19 17:32 01/20/19 22:19 01/21/19 05:54 Bedside Glucose 110 86 126 White Blood Count 11.6 H Red Blood Count 2.64 L Hemoglobin 7.3 L Hematocrit 23.6 L Mean Corpuscular 89.4 Volume Mean Corpuscular 27.7 L Hemoglobin Mean Corpuscular 30.9 L Hemoglobin Concent Red Cell Distribution 13.4 Width Platelet Count 230 Mean Platelet Volume 9.7 Immature Granulocytes 0.700 H % Neutrophils % 74.1 Lymphocytes % 15.2 Monocytes % 8.9 Eosinophils % 0.8 Basophils % 0.3 Nucleated Red Blood 0.0 Cells % Immature Granulocytes 0.080 H # Neutrophils # 8.6 H Lymphocytes # 1.8 Monocytes # 1.0 H Eosinophils # 0.1 Basophils # 0.0 Nucleated Red Blood 0.0 Cells # Sodium Level 136 Potassium Level 4.9 Chloride Level 107 Carbon Dioxide Level 22 Anion Gap 7 Blood Urea Nitrogen 25 H Creatinine 1.50 H Est Glomerular Filtrat Rate mL/min Glucose Level 91 Calcium Level 7.4 L Test 01/21/19 07:58 Bedside Glucose 92 Medications Medication Current Medications IV Flush (NS 3 ml) 3 ml PER PROTOCOL IV ; Start 01/18/19 at 12:00 Ondansetron HCl (Zofran Inj) 4 mg Q6H PRN IV NAUSEA/VOMITING; Start 01/18/19 at 12:00 Acetaminophen (Tylenol Tab) 650 mg Q6H PRN PO .PAIN 1-3 OR TEMP Last a dministered on 01/21/19at 00:33; Admin Dose 650 MG; Start 01/18/19 at 12:00 Acetaminophen/ Hydrocodone Bitart ([place] (5/325)) 1 tab Q6H PRN PO .MOD PAIN 4- 6 Last administered on 01/19/19at 00:47; Admin Dose 1 TAB; Start 01/18/19 at 12:00 Morphine Sulfate (morphine) 2 mg Q4H PRN IV .SEVERE PAIN 7-10 Last administered on 01/18/19at 14:17; Admin Dose 2 MG; Start 01/18/19 at 12:00 Docusate Sodium (Colace) 100 mg Q12H PRN PO .CONSTIPATION; Start 01/18/19 at 12:00 Magnesium Hydroxide (Milk Of Mag) 30 ml DAILY PRN PO .CONSTIPATION; Start 01/18/19 at 12:00 Albuterol/ Ipratropium (Duoneb) 3 ml Q4H RESP THERAPY PRN HHN SHORTNESS OF BREATH; Start 01/18/19 at 12:00 Hydralazine HCl (Apresoline) 10 mg Q6H PRN IV SBP GREATER THAN 180; Start 01/18/19 at 12:00 Nitroglycerin (Nitroglycerin (Sl Tab) 0.4 Mg) 1 tab Q5M PRN SL ANGINA; Start 01/18/19 at 12:00 Cholecalciferol (Vitamin D) 1,000 unit DAILY PO Last administered on 01/21/19at 08:35; Admin Dose 1,000 UNIT; Start 01/19/19 at 09:00 Gabapentin (Neurontin) 300 mg TID PO Last administered on 01/21/19at 08:35; Admin Dose 300 MG; Start 01/18/19 at 13:00 Meclizine HCl (Antivert) 25 mg Q6H PRN PO DIZZINESS; Start 01/18/19 at 12:00 Metoprolol Tartrate (Lopressor) 25 mg BID PO Last administered on 01/19/19 08:38; Admin Dose 25 MG; Start 01/18/19 at 21:00 Pantoprazole (Protonix Tab) 40 mg DAILY PO Last administered on 01/21/19 08:35; Admin Dose 40 MG; Start 01/19/19 at 09:00 Atorvastatin Calcium (Lipitor) 10 mg HS PO Last administered on 01/20/19 22:20; Admin Dose 10 MG; Start 01/18/19 at 21:00 Ertapenem 0.5 gm/ Sodium Chloride 100 ml @ 200 mls/hr Q24H IVPB Last administered on 01/20/19 14:59; Admin Dose 200 MLS/HR; Start 01/18/19 at 14:00 Diagnostic Test (Pha) (Accu-Chek) 1 ea 02 XX Last administered on 01/19/19 01:54; Admin Dose 1 EA; Start 01/19/19 at 02:00 Sodium Hypochlorite (Dakins Diluted (40)) 1 applic DAILY TP Last administered on 01/21/19 08:36; Admin Dose 1 APPLIC; Start 01/19/19 at 09:00 Insulin Aspart (Novolog Insulin Pen) NOVOLOG *MILD* ALGORITHM WITH MEALS BEDTIME SC ; Start 01/19/19 at 07:35 Apixaban (Eliquis) 2.5 mg BID PO Last administered on 01/21/19 08:36; Admin Dose 2.5 MG; Start 01/19/19 at 21:00 Lactated Ringer's 1,000 ml @ 75 mls/hr [id number] IV Last administered on 01/21/19 00:24; Admin Dose 75 MLS/HR; Start 01/19/19 at 19:30 Melatonin (Melatonin) 3 mg HS PO Last administered on 01/20/19 22:26; Admin Dose 3 MG; Start 01/19/19 at 23:30 MARTÍNEZ DUARTE NP Jan 21, 2019 10:55
--- NOTE | 2019-01-21 11:53 | PN ---
Date/Time of Note Date/Time of Note DATE: 01/21/19 TIME: 11:46 Assessment/Plan VTE Prophylaxis Risk score (from Ns)>0 risk: 9 SCD applied (from [facility] [place]): No SCD contraindicated: other Pharmacological prophylaxis: apixaban Lines/Catheters IV Catheter Type (from [facility]): PICC Line Central line still needed: Yes Urinary Cath still in place: No Assessment/Plan Hospital Course S: Patient sleeping presently, but per staff again had some delirium and/or hallucinations earlier last night. Had fever as well, seen by ID team of vascular surgery teams this morning. O: VS see below PE: Gen: Frail elderly woman supine in bed, awake and alert. Head: normocephalic, atraumatic Eyes: nl conjunctiva, nl lids ENMT: nl external ears & nose, nl nasal mucosa & septum Neck: supple Respiratory: clear to auscultation B/L Cardiovascular: irregular rhythm Gastrointestinal: soft, non-tender Extremities: L foot faint DP palpable pulse. R foot dopplerable DP. Distal foot bandaged. Assessment/Plan: 88-year-old woman with history of A fib, PAD, and diabetes now status post right iliofemoral endarterectomy (01/18) #Delirium and hallucinations- This may be a prolonged postoperative reaction, also patient has been on ertapenem and Levaquin antibiotics which can cause hallucinations and AMS as side effects (she had also been on these antibiotics as an outpatient prior to this admission for osteomyelitis via PICC line at home). Levaquin was stopped by ID team. -Monitor for now as patient is sleeping presently, if continues to persist tomorrow, will ask ID about stopping ertapenem # Severe PAD- h/o revascularization in the past - status post right iliofemoral endarterectomy 01/18. 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 - Dr. Jackson following, again they are for now recommending continuing ertapenem - Again Levaquin has been stopped secondary to the altered mental status and hallucinations # Diabetes Mellitus type 2 -Continue ISS and accuchecks # Chronic kidney disease- at baseline -Monitor, continue to renally dose all medications # Atrial fibrillation: Stable -Continue on Eliquis 2.5 mg PO BID. # HTN: Stable - continue current medications # Anemia of chronic disease -Monitor DVT: None GI: Protonix Dispo: Severe delirium and hallucinations after surgery, likely from ertapenem + levaquin. After this resolves plan to discharge with home health. Result Diagram: 01/21/19 0554 01/21/19 0554 Results 24hrs Laboratory Tests Test 01/20/19 12:04 01/20/19 17:32 01/20/19 22:19 01/21/19 05:54 Bedside Glucose 110 86 126 White Blood Count 11.6 H Red Blood Count 2.64 L Hemoglobin 7.3 L Hematocrit 23.6 L Mean Corpuscular 89.4 Volume Mean Corpuscular 27.7 L Hemoglobin Mean Corpuscular 30.9 L Hemoglobin Concent Red Cell Distribution 13.4 Width Platelet Count 230 Mean Platelet Volume 9.7 Immature Granulocytes 0.700 H % Neutrophils % 74.1 Lymphocytes % 15.2 Monocytes % 8.9 Eosinophils % 0.8 Basophils % 0.3 Nucleated Red Blood 0.0 Cells % Immature Granulocytes 0.080 H # Neutrophils # 8.6 H Lymphocytes # 1.8 Monocytes # 1.0 H Eosinophils # 0.1 Basophils # 0.0 Nucleated Red Blood 0.0 Cells # Sodium Level 136 Potassium Level 4.9 Chloride Level 107 Carbon Dioxide Level 22 Anion Gap 7 Blood Urea Nitrogen 25 H Creatinine 1.50 H Est Glomerular Filtrat Rate mL/min Glucose Level 91 Calcium Level 7.4 L Test 01/21/19 07:58 01/21/19 11:22 Bedside Glucose 92 90 Exam/Review of Systems Exam Vitals Vital Signs Date Temp Pulse Resp B/P (MAP) Pulse Ox O2 O2 Flow FiO2 Time Delivery Rate 01/21/19 97.8 106 18 102/55 98 10:59 (71) 01/21/19 Nasal 2.0 08:00 Cannula Intake and Output 01/20/19 01/20/19 01/21/19 1515:00 23:00 07:00 IntakeIntake Total 440 ml 1465 ml 670 ml OutputOutput Total 1 ml BalanceBalance 440 ml 1464 ml 670 ml Results Results 24hrs Laboratory Tests Test 01/20/19 12:04 01/20/19 17:32 01/20/19 22:19 01/21/19 05:54 Bedside Glucose 110 86 126 White Blood Count 11.6 H Red Blood Count 2.64 L Hemoglobin 7.3 L Hematocrit 23.6 L Mean Corpuscular 89.4 Volume Mean Corpuscular 27.7 L Hemoglobin Mean Corpuscular 30.9 L Hemoglobin Concent Red Cell Distribution 13.4 Width Platelet Count 230 Mean Platelet Volume 9.7 Immature Granulocytes 0.700 H % Neutrophils % 74.1 Lymphocytes % 15.2 Monocytes % 8.9 Eosinophils % 0.8 Basophils % 0.3 Nucleated Red Blood 0.0 Cells % Immature Granulocytes 0.080 H # Neutrophils # 8.6 H Lymphocytes # 1.8 Monocytes # 1.0 H Eosinophils # 0.1 Basophils # 0.0 Nucleated Red Blood 0.0 Cells # Sodium Level 136 Potassium Level 4.9 Chloride Level 107 Carbon Dioxide Level 22 Anion Gap 7 Blood Urea Nitrogen 25 H Creatinine 1.50 H Est Glomerular Filtrat Rate mL/min Glucose Level 91 Calcium Level 7.4 L Test 01/21/19 07:58 01/21/19 11:22 Bedside Glucose 92 90 Medications Medication Current Medications IV Flush (NS 3 ml) 3 ml PER PROTOCOL IV ; Start 01/18/19 at 12:00 Ondansetron HCl (Zofran Inj) 4 mg Q6H PRN IV NAUSEA/VOMITING; Start 01/18/19 at 12:00 Acetaminophen (Tylenol Tab) 650 mg Q6H PRN PO .PAIN 1-3 OR TEMP Last administered on 01/21/19at 00:33; Admin Dose 650 MG; Start 01/18/19 at 12:00 Acetaminophen/ Hydrocodone Bitart ([place] (5/325)) 1 tab Q6H PRN PO .MOD PAIN 4- 6 Last administered on 01/19/19at 00:47; Admin Dose 1 TAB; Start 01/18/19 at 12:00 Morphine Sulfate (morphine) 2 mg Q4H PRN IV .SEVERE PAIN 7-10 Last administered on 01/18/19at 14:17; Admin Dose 2 MG; Start 01/18/19 at 12:00 Docusate Sodium (Colace) 100 mg Q12H PRN PO .CONSTIPATION; Start 01/18/19 at 12:00 Magnesium Hydroxide (Milk Of Mag) 30 ml DAILY PRN PO .CONSTIPATION; Start 01/18/19 at 12:00 Albuterol/ Ipratropium (Duoneb) 3 ml Q4H RESP THERAPY PRN HHN SHORTNESS OF BREATH; Start 01/18/19 at 12:00 Hydralazine HCl (Apresoline) 10 mg Q6H PRN IV SBP GREATER THAN 180; Start 01/18/19 at 12:00 Nitroglycerin (Nitroglycerin (Sl Tab) 0.4 Mg) 1 tab Q5M PRN SL ANGINA; Start 01/18/19 at 12:00 Cholecalciferol (Vitamin D) 1,000 unit DAILY PO Last administered on 01/21/19 08:35; Admin Dose 1,000 UNIT; Start 01/19/19 at 09:00 Gabapentin (Neurontin) 300 mg TID PO Last administered on 01/21/19 08:35; Admin Dose 300 MG; Start 01/18/19 at 13:00 Meclizine HCl (Antivert) 25 mg Q6H PRN PO DIZZINESS; Start 01/18/19 at 12:00 Metoprolol Tartrate (Lopressor) 25 mg BID PO Last administered on 01/19/19 08:38; Admin Dose 25 MG; Start 01/18/19 at 21:00 Pantoprazole (Protonix Tab) 40 mg DAILY PO Last administered on 01/21/19 08:35; Admin Dose 40 MG; Start 01/19/19 at 09:00 Atorvastatin Calcium (Lipitor) 10 mg HS PO Last administered on 01/20/19 22:20; Admin Dose 10 MG; Start 01/18/19 at 21:00 Ertapenem 0.5 gm/ Sodium Chloride 100 ml @ 200 mls/hr Q24H IVPB Last administered on 01/20/19 14:59; Admin Dose 200 MLS/HR; Start 01/18/19 at 14:00 Diagnostic Test (Pha) (Accu-Chek) 1 ea 02 XX Last administered on 01/19/19 01:54; Admin Dose 1 EA; Start 01/19/19 at 02:00 Sodium Hypochlorite (Dakins Diluted ()) 1 applic DAILY TP Last administered on 01/21/19 08:36; Admin Dose 1 APPLIC; Start 01/19/19 at 09:00 Insulin Aspart (Novolog Insulin Pen) NOVOLOG *MILD* ALGORITHM WITH MEALS BEDTIME SC ; Start 01/19/19 at 07:35 Apixaban (Eliquis) 2.5 mg BID PO Last administered on 01/21/19at 08:36; Admin Dose 2.5 MG; Start 01/19/19 at 21:00 Lactated Ringer's 1,000 ml @ 75 mls/hr [id number] IV Last administered on 01/21/19at 00:24; Admin Dose 75 MLS/HR; Start 01/19/19 at 19:30 NOHEMY JESSICA Jan 21, 2019 11:53
--- NOTE | 2019-01-21 14:05 | CONS ---
Assessment/Plan Assessment/Plan Assessment/Plan (Daily) Right foot diabetic foot ulceration Right foot osteomyelitis. Right foot gangrene Peripheral arterial disease with subtotal occlusion of the right common femoral artery s/p [employer] endearterectomy DM2 with peripheral neuropathy Edema Plan Appreciate vascular intervention. Will allow patient to demarcate and plan for procedure accordingly. Continue with IV abx per recommendations. Previous wound Cx had shown e.cloacae, corynebacterium, and stenotrophomonas maltophilia. Recommend betadine paint to the gangrenous areas with dry dressings. Recommend soft offloading boots while resting in bed. Consultation Date/Type/Reason Admit Date/Time Jan 18, 2019 at 06:06 Initial Consult Date 01/18/19 Requesting Provider: NOHEMY JESSICA Date/Time of Note DATE: 01/21/19 TIME: 14:04 24 HR Interval Summary Free Text/Dictation Patient's family reporting patient is lethargic Exam/Review of Systems Exam Vitals Vital Signs Date Temp Pulse Resp B/P (MAP) Pulse Ox O2 O2 Flow FiO2 Time Delivery Rate 01/21/19 97.8 106 18 102/55 98 10:59 (71) 01/21/19 Nasal 2.0 08:00 Cannula Intake and Output 01/20/19 01/20/19 01/21/19 1515:00 23:00 07:00 IntakeIntake Total 440 ml 1465 ml 670 ml OutputOutput Total 1 ml BalanceBalance 440 ml 1464 ml 670 ml Exam The patient with brawny appearing skin. Pedal pulses are nonpalpable. There is ulceration at the lateral aspect of the fourth toe base with lesion that appears punched out and probes down to tendon 2 x 2 x 0.5cm. No erythema. No instability of the toe noted. Absent protective sensations. There is gangrene noted to the right 4th digit. There are decreased ischemic changes noted to the lesser digits with more perfusion appearing to digits. There is noted ecchymo sis to the right lateral foot. Left foot has a localized edema to the sinus tarsi region. Results Result Diagram: 01/21/19 0554 01/21/19 0554 Results 24hrs Laboratory Tests Test 01/20/19 17:32 01/20/19 22:19 01/21/19 05:54 01/21/19 07:58 Bedside Glucose 86 126 92 White Blood Count 11.6 H Red Blood Count 2.64 L Hemoglobin 7.3 L Hematocrit 23.6 L Mean Corpuscular 89.4 Volume Mean Corpuscular 27.7 L Hemoglobin Mean Corpuscular 30.9 L Hemoglobin Concent Red Cell Distribution 13.4 Width Platelet Count 230 Mean Platelet Volume 9.7 Immature Granulocytes 0.700 H % Neutrophils % 74.1 Lymphocytes % 15.2 Monocytes % 8.9 Eosinophils % 0.8 Basophils % 0.3 Nucleated Red Blood 0.0 Cells % Immature Granulocytes 0.080 H # Neutrophils # 8.6 H Lymphocytes # 1.8 Monocytes # 1.0 H Eosinophils # 0.1 Basophils # 0.0 Nucleated Red Blood 0.0 Cells # Sodium Level 136 Potassium Level 4.9 Chloride Level 107 Carbon Dioxide Level 22 Anion Gap 7 Blood Urea Nitrogen 25 H Creatinine 1.50 H Est Glomerular Filtrat Rate mL/min Glucose Level 91 Calcium Level 7.4 L Test 01/21/19 11:22 01/21/19 11:45 01/21/19 11:58 Bedside Glucose 90 Procalcitonin 0.39 H Ethyl Alcohol Level < 10.0 H Lactic Acid Level 0.9 Medications Medication Current Medications IV Flush (NS 3 ml) 3 ml PER PROTOCOL IV ; Start 01/18/19 at 12:00 Ondansetron HCl (Zofran Inj) 4 mg Q6H PRN IV NAUSEA/VOMITING; Start 01/18/19 at 12:00 Acetaminophen (Tylenol Tab) 650 mg Q6H PRN PO .PAIN 1-3 OR TEMP Last administered on 01/21/19at 00:33; Admin Dose 650 MG; Start 01/18/19 at 12:00 Acetaminophen/ Hydrocodone Bitart ([place] (5/325)) 1 tab Q6H PRN PO .MOD PAIN 4- 6 Last administered on 01/19/19at 00:47; Admin Dose 1 TAB; Start 01/18/19 at 12:00 Morphine Sulfate (morphine) 2 mg Q4H PRN IV .SEVERE PAIN 7-10 Last administered on 01/18/19at 14:17; Admin Dose 2 MG; Start 01/18/19 at 12:00 Docusate Sodium (Colace) 100 mg Q12H PRN PO .CONSTIPATION; Start 01/18/19 at 12:00 Magnesium Hydroxide (Milk Of Mag) 30 ml DAILY PRN PO .CONSTIPATION; Start 01/18/19 at 12:00 Albuterol/ Ipratropium (Duoneb) 3 ml Q4H RESP THERAPY PRN HHN SHORTNESS OF BREATH; Start 01/18/19 at 12:00 Hydralazine HCl (Apresoline) 10 mg Q6H PRN IV SBP GREATER THAN 180; Start 01/18/19 at 12:00 Nitroglycerin (Nitroglycerin (Sl Tab) 0.4 Mg) 1 tab Q5M PRN SL ANGINA; Start 01/18/19 at 12:00 Cholecalciferol (Vitamin D) 1,000 unit DAILY PO Last administered on 01/21/19 08:35; Admin Dose 1,000 UNIT; Start 01/19/19 at 09:00 Gabapentin (Neurontin) 300 mg TID PO Last administered on 01/21/19 13:00; Admin Dose 300 MG; Start 01/18/19 at 13:00 Meclizine HCl (Antivert) 25 mg Q6H PRN PO DIZZINESS; Start 01/18/19 at 12:00 Metoprolol Tartrate (Lopressor) 25 mg BID PO Last administered on 01/19/19 08:38; Admin Dose 25 MG; Start 01/18/19 at 21:00 Pantoprazole (Protonix Tab) 40 mg DAILY PO Last administered on 01/21/19 08:35; Admin Dose 40 MG; Start 01/19/19 at 09:00 Atorvastatin Calcium (Lipitor) 10 mg HS PO Last administered on 01/20/19 22:20; Admin Dose 10 MG; Start 01/18/19 at 21:00 Ertapenem 0.5 gm/ Sodium Chloride 100 ml @ 200 mls/hr Q24H IVPB Last administered on 01/20/19 14:59; Admin Dose 200 MLS/HR; Start 01/18/19 at 14:00 Diagnostic Test (Pha) (Accu-Chek) 1 ea 02 XX Last administered on 01/19/19at 01:54; Admin Dose 1 EA; Start 01/19/19 at 02:00 Sodium Hypochlorite (Dakins Diluted ()) 1 applic DAILY TP Last administered on 01/21/19 08:36; Admin Dose 1 APPLIC; Start 01/19/19 at 09:00 Insulin Aspart (Novolog Insulin Pen) NOVOLOG *MILD* ALGORITHM WITH MEALS BEDTIME SC ; Start 01/19/19 at 07:35 Apixaban (Eliquis) 2.5 mg BID PO Last administered on 01/21/19at 08:36; Admin Dose 2.5 MG; Start 01/19/19 at 21:00 Lactated Ringer's 1,000 ml @ 75 mls/hr [id number] IV Last administered on 01/21/19at 11:48; Admin Dose 75 MLS/HR; Start 01/19/19 at 19:30 JUANI BAHENA DPM Jan 21, 2019 14:05
[2019-01-21] MEDS: ERTAPENEM SODIUM 0.5 GM in SOD CHLORIDE 0.9% 100 ML IVPB SCH (15:41)
[2019-01-21] MEDS: ATORVASTATIN 10 MG TAB PO SCH (20:48)
[2019-01-22] VITALS (7 sets, daily range): BP systolic 86–126; BP diastolic 48–85; PULSE 87–103; RESP 16–22
[2019-01-22] MEDS: LACTATED RINGER'S 1,000 ML IV SCH ×2 (01:24→13:23)
[2019-01-22] MEDS: ACCU-CHEK XX SCH (02:00)
[2019-01-22] MEDS: ACETAMINOPHEN 325 MG TAB PO PRN (04:05)
[2019-01-22] MEDS: INSULIN ASPART [NOVOLOG] 3 ML PEN SC SCH ×4 (07:55→20:40)
[2019-01-22] MEDS: METOPROLOL 25 MG TAB PO SCH ×2 (09:00→20:39)
[2019-01-22] MEDS: CHOLECALCIFEROL 1,000 UNIT TAB PO SCH (09:10)
[2019-01-22] MEDS: PANTOPRAZOLE (EC) 40 MG TAB PO SCH (09:10)
[2019-01-22] MEDS: APIXABAN 5 MG TABLET PO SCH ×2 (09:10→20:40)
[2019-01-22] MEDS: GABAPENTIN 300 MG CAP PO SCH ×3 (09:10→20:40)
[2019-01-22] MEDS: DAKINS 0.0125%(1/40) 473 ML SOLUTION TP SCH (09:11)
--- NOTE | 2019-01-22 10:43 | PN ---
Date/Time of Note Date/Time of Note DATE: 01/22/19 TIME: 10:40 Assessment/Plan VTE Prophylaxis Risk score (from Ns)>0 risk: 13 SCD applied (from [facility]): No SCD contraindicated: other Pharmacological prophylaxis: apixaban Lines/Catheters IV Catheter Type (from [facility]): PICC Line Central line still needed: Yes Urinary Cath still in place: No Assessment/Plan Hospital Course S: Patient per nursing staff with less delirium and hallucination symptoms in the last 24 hours. Presently working with physical therapy. O: VS see below PE: Gen: Frail elderly woman supine in bed, awake and alert. Head: normocephalic, atraumatic Eyes: nl conjunctiva, nl lids ENMT: nl external ears & nose, nl nasal mucosa & septum Neck: supple Respiratory: clear to auscultation B/L Cardiovascular: irregular rhythm Gastrointestinal: soft, non-tender Extremities: L foot faint DP palpable pulse. R foot dopplerable DP. Distal foot bandaged. Assessment/Plan: 88-year-old woman with history of A fib, PAD, and diabetes now status post right iliofemoral endarterectomy (01/18) #Delirium and hallucinations-slightly improved in the last 24 hours. This may be a prolonged postoperative reaction, also patient has been on ertapenem and Levaquin antibiotics which can cause hallucinations and AMS as side effects (she had also been on these antibiotics as an outpatient prior to this admission for osteomyelitis via PICC line at home). Levaquin was stopped by ID team -Monitor for now, cautiously continue ertapenem per ID recommendations -Continue PT and OT as tolerated # Severe PAD- h/o revascularization in the past - status post right iliofemoral endarterectomy 01/18. 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 - Dr. Jackson following, again they are for now recommending continuing ertapenem - Again Levaquin has been stopped secondary to the altered mental status and hallucinations # Diabetes Mellitus type 2 -Continue ISS and accuchecks # Chronic kidney disease- at baseline -Monitor, continue to renally dose all medications # Atrial fibrillation: Stable -Continue on Eliquis 2.5 mg PO BID. # HTN: Stable - continue current medications # Anemia of chronic disease -Monitor DVT: None GI: Protonix Dispo: Severe delirium and hallucinations after surgery, likely from ertapenem + levaquin. After this resolves plan to discharge with home health. Result Diagram: 01/22/19 0648 01/22/19 0648 Results 24hrs Laboratory Tests Test 01/21/19 11:22 01/21/19 11:45 01/21/19 11:58 01/21/19 16:47 Bedside Glucose 90 79 Procalcitonin 0.39 H Ethyl Alcohol Level < 10.0 H Lactic Acid Level 0.9 Test 01/21/19 17:21 01/21/19 20:41 01/22/19 06:48 01/22/19 07:50 Urine Color YELLOW Urine Clarity CLEAR Urine pH 5.0 Urine Specific [place] 1.012 Urine Ketones NEGATIVE Urine Nitrite NEGATIVE Urine Bilirubin NEGATIVE Urine Urobilinogen NEGATIVE Urine Leukocyte Esterase NEGATIVE Urine Microscopic RBC 1 Urine Microscopic WBC 2 Urine Bacteria FEW A Urine Hemoglobin 1+ H Urine Glucose NEGATIVE Urine Total Protein 2+ H Bedside Glucose 97 86 White Blood Count 9.5 Red Blood Count 2.76 L Hemoglobin 7.6 L Hematocrit 24.4 L Mean Corpuscular Volume 88.4 Mean Corpuscular 27.5 L Hemoglobin Mean Corpuscular 31.1 L Hemoglobin Concent Red Cell Distribution 13.6 Width Platelet Count 240 Mean Platelet Volume 9.3 Immature Granulocytes % 0.300 Neutrophils % 79.2 H Lymphocytes % 9.9 L Monocytes % 9.0 Eosinophils % 1.3 Basophils % 0.3 Nucleated Red Blood 0.0 Cells % Immature Granulocytes # 0.030 Neutrophils # 7.5 Lymphocytes # 0.9 Monocytes # 0.9 Eosinophils # 0.1 Basophils # 0.0 Nucleated Red Blood 0.0 Cells # Sodium Level 133 L Potassium Level 5.9 H Chloride Level 107 Carbon Dioxide Level 20 L Anion Gap 6 Blood Urea Nitrogen 29 H Creatinine 1.50 H Est Glomerular Filtrat Rate mL/min Glucose Level 82 Calcium Level 7.5 L Exam/Review of Systems Exam Vitals Vital Signs Date Temp Pulse Resp B/P (MAP) Pulse Ox O2 O2 Flow FiO2 Time Delivery Rate 01/22/19 3.0 08:00 01/22/19 98.2 97 18 96/48 (64) 93 07:32 7/2/19 Nasal 03:53 Cannula Intake and Output 01/21/19 01/21/19 01/22/19 1515:00 23:00 07:00 IntakeIntake Total 300 ml 1475 ml BalanceBalance 300 ml 1475 ml Results Results 24hrs Laboratory Tests Test 01/21/19 11:22 01/21/19 11:45 01/21/19 11:58 01/21/19 16:47 Bedside Glucose 90 79 Procalcitonin 0.39 H Ethyl Alcohol Level < 10.0 H Lactic Acid Level 0.9 Test 01/21/19 17:21 01/21/19 20:41 01/22/19 06:48 01/22/19 07:50 Urine Color YELLOW Urine Clarity CLEAR Urine pH 5.0 Urine Specific [place] 1.012 Urine Ketones NEGATIVE Urine Nitrite NEGATIVE Urine Bilirubin NEGATIVE Urine Urobilinogen NEGATIVE Urine Leukocyte Esterase NEGATIVE Urine Microscopic RBC 1 Urine Microscopic WBC 2 Urine Bacteria FEW A Urine Hemoglobin 1+ H Urine Glucose NEGATIVE Urine Total Protein 2+ H Bedside Glucose 97 86 White Blood Count 9.5 Red Blood Count 2.76 L Hemoglobin 7.6 L Hematocrit 24.4 L Mean Corpuscular Volume 88.4 Mean Corpuscular 27.5 L Hemoglobin Mean Corpuscular 31.1 L Hemoglobin Concent Red Cell Distribution 13.6 Width Platelet Count 240 Mean Platelet Volume 9.3 Immature Granulocytes % 0.300 Neutrophils % 79.2 H Lymphocytes % 9.9 L Monocytes % 9.0 Eosinophils % 1.3 Basophils % 0.3 Nucleated Red Blood 0.0 Cells % Immature Granulocytes # 0.030 Neutrophils # 7.5 Lymphocytes # 0.9 Monocytes # 0.9 Eosinophils # 0.1 Basophils # 0.0 Nucleated Red Blood 0.0 Cells # Sodium Level 133 L Potassium Level 5.9 H Chloride Level 107 Carbon Dioxide Level 20 L Anion Gap 6 Blood Urea Nitrogen 29 H Creatinine 1.50 H Est Glomerular Filtrat Rate mL/min Glucose Level 82 Calcium Level 7.5 L Medications Medication Current Medications IV Flush (NS 3 ml) 3 ml PER PROTOCOL IV ; Start 01/18/19 at 12:00 Ondansetron HCl (Zofran Inj) 4 mg Q6H PRN IV NAUSEA/VOMITING; Start 01/18/19 at 12:00 Acetaminophen (Tylenol Tab) 650 mg Q6H PRN PO .PAIN 1-3 OR TEMP Last administered on 01/22/19 04:05; Admin Dose 650 MG; Start 01/18/19 at 12:00 Acetaminophen/ Hydrocodone Bitart ([place] (5/325)) 1 tab Q6H PRN PO .MOD PAIN 4- 6 Last administered on 01/19/19at 00:47; Admin Dose 1 TAB; Start 01/18/19 at 12:00 Morphine Sulfate (morphine) 2 mg Q4H PRN IV .SEVERE PAIN 7-10 Last administered on 01/18/19at 14:17; Admin Dose 2 MG; Start 01/18/19 at 12:00 Docusate Sodium (Colace) 100 mg Q12H PRN PO .CONSTIPATION; Start 01/18/19 at 12:00 Magnesium Hydroxide (Milk Of Mag) 30 ml DAILY PRN PO .CONSTIPATION; Start 01/18/19 at 12:00 Albuterol/ Ipratropium (Duoneb) 3 ml Q4H RESP THERAPY PRN HHN SHORTNESS OF BREATH; Start 01/18/19 at 12:00 Hydralazine HCl (Apresoline) 10 mg Q6H PRN IV SBP GREATER THAN 180; Start 01/18/19 at 12:00 Nitroglycerin (Nitroglycerin (Sl Tab) 0.4 Mg) 1 tab Q5M PRN SL ANGINA; Start 01/18/19 at 12:00 Cholecalciferol (Vitamin D) 1,000 unit DAILY PO Last administered on 01/22/19 09:10; Admin Dose 1,000 UNIT; Start 01/19/19 at 09:00 Gabapentin (Neurontin) 300 mg TID PO Last administered on 01/22/19 09:10; Admin Dose 300 MG; Start 01/18/19 at 13:00 Meclizine HCl (Antivert) 25 mg Q6H PRN PO DIZZINESS; Start 01/18/19 at 12:00 Metoprolol Tartrate (Lopressor) 25 mg BID PO Last administered on 01/19/19at 08:38; Admin Dose 25 MG; Start 01/18/19 at 21:00 Pantoprazole (Protonix Tab) 40 mg DAILY PO Last administered on 01/22/19 09:10; Admin Dose 40 MG; Start 01/19/19 at 09:00 Atorvastatin Calcium (Lipitor) 10 mg HS PO Last administered on 01/21/19 20:48; Admin Dose 10 MG; Start 01/18/19 at 21:00 Ertapenem 0.5 gm/ Sodium Chloride 100 ml @ 200 mls/hr Q24H IVPB Last administered on 01/21/19 15:41; Admin Dose 200 MLS/HR; Start 01/18/19 at 14:00 Diagnostic Test (Pha) (Accu-Chek) 1 ea 02 XX Last administered on 01/19/19at 01:54; Admin Dose 1 EA; Start 01/19/19 at 02:00 Sodium Hypochlorite (Dakins Diluted ()) 1 applic DAILY TP Last administered on 01/22/19 09:11; Admin Dose 1 APPLIC; Start 01/19/19 at 09:00 Insulin Aspart (Novolog Insulin Pen) NOVOLOG *MILD* ALGORITHM WITH MEALS BEDTIME SC ; Start 01/19/19 at 07:35 Apixaban (Eliquis) 2.5 mg BID PO Last administered on 01/22/19 09:10; Admin Dose 2.5 MG; Start 01/19/19 at 21:00 Lactated Ringer's 1,000 ml @ 75 mls/hr [id number] IV Last administered on 01/22/19 01:24; Admin Dose 75 MLS/HR; Start 01/19/19 at 19:30 NOHEMY JESSICA Jan 22, 2019 10:43
[2019-01-22] MEDS: ERTAPENEM SODIUM 0.5 GM in SOD CHLORIDE 0.9% 100 ML IVPB SCH (13:21)
--- NOTE | 2019-01-22 15:23 | CONS ---
Assessment/Plan Assessment/Plan Hospital Course (Demo Recall) - SIRS vs sepsis - low grade temp, tachycardia, hypotension - Diabetic R foot ulcer with MRI suggestive of early OM (ESR 45). MRI on 12/31/2018 showed mild bone marrow edema in R 4th toe proximal phalanx which could represent early OM or nonspecific stress reaction. Moderate soft tissue edema without evidence of abscess, suggesting cellulitis. The wound culture on 12/31/2018 grew Enterobacter, Corynebacteria and Stenotrophomonas - severe PAD - s/p R iliofemoral endarterectomy 01/18/2019 - h/o revascularization in the past - T2DM - Hgb A1c 6.8% - CKD - Atrial fib - HTN - Mild , mild AR/MR, and mild-mod TR - ACD - mental status change, hallucinations- we suspect levofloxacin (01/18/2019-) is causing mental status change and hallucinations, and so stopped it recommendations: - f/u blood cultures as well as serial lactic acid, and procalcitonin - trend fever curve/VS - continue ertapenem (initially started as meropenem 01/02/2019-) alone for now - the original plan is to complete 6 week course of antibiotics Consultation Date/Type/Reason Admit Date/Time Jan 18, 2019 at 06:06 Initial Consult Date 01/18/19 Requesting Provider: NOHEMY JESSICA Date/Time of Note DATE: 01/22/19 TIME: 15:21 Exam/Review of Systems Exam Vitals Vital Signs Date Temp Pulse Resp B/P (MAP) Pulse Ox O2 O2 Flow FiO2 Time Delivery Rate 01/22/19 98.1 89 17 91/62 (72) 99 11:29 01/22/19 3.0 08:00 01/22/19 Nasal 03:53 Cannula Intake and Output 01/21/19 01/21/19 01/22/19 1515:00 23:00 07:00 IntakeIntake Total 300 ml 1475 ml BalanceBalance 300 ml 1475 ml Constitutional: alert, oriented, well developed Psych: no complaints, nl mood/affect Eyes: nl conjunctiva, EOMI, nl lids, nl sclera, PERRL ENMT: nl external ears & nose, nl lips & teeth, nl nasal mucosa & septum Cardiovascular: regular rate and rhythm, nl pulses Gastrointestinal: soft, nl liver, spleen, non-tender Neurological: CHOIRMASTER II-XII intact, nl mental status, nl speech, nl strength Results Result Diagram: 01/22/19 0648 01/22/19 1110 Results 24hrs Laboratory Tests Test 01/21/19 16:47 01/21/19 17:21 01/21/19 20:41 01/22/19 06:48 Bedside Glucose 79 97 Urine Color YELLOW Urine Clarity CLEAR Urine pH 5.0 Urine Specific [place] 1.012 Urine Ketones NEGATIVE Urine Nitrite NEGATIVE Urine Bilirubin NEGATIVE Urine Urobilinogen NEGATIVE Urine Leukocyte Esterase NEGATIVE Urine Microscopic RBC 1 Urine Microscopic WBC 2 Urine Bacteria FEW A Urine Hemoglobin 1+ H Urine Glucose NEGATIVE Urine Total Protein 2+ H White Blood Count 9.5 Red Blood Count 2.76 L Hemoglobin 7.6 L Hematocrit 24.4 L Mean Corpuscular Volume 88.4 Mean Corpuscular 27.5 L Hemoglobin Mean Corpuscular 31.1 L Hemoglobin Concent Red Cell Distribution 13.6 Width Platelet Count 240 Mean Platelet Volume 9.3 Immature Granulocytes % 0.300 Neutrophils % 79.2 H Lymphocytes % 9.9 L Monocytes % 9.0 Eosinophils % 1.3 Basophils % 0.3 Nucleated Red Blood 0.0 Cells % Immature Granulocytes # 0.030 Neutrophils # 7.5 Lymphocytes # 0.9 Monocytes # 0.9 Eosinophils # 0.1 Basophils # 0.0 Nucleated Red Blood 0.0 Cells # Sodium Level 133 L Potassium Level 5.9 H Chloride Level 107 Carbon Dioxide Level 20 L Anion Gap 6 Blood Urea Nitrogen 29 H Creatinine 1.50 H Est Glomerular Filtrat Rate mL/min Glucose Level 82 Calcium Level 7.5 L Test 01/22/19 07:50 01/22/19 11:10 01/22/19 11:34 Bedside Glucose 86 116 Sodium Level 134 L Potassium Level 4.8 Chloride Level 106 Carbon Dioxide Level 20 L Anion Gap 8 Blood Urea Nitrogen 26 H Creatinine 1.47 H Est Glomerular Filtrat Rate mL/min Glucose Level 108 Calcium Level 7.5 L Medications Medication Current Medications IV Flush (NS 3 ml) 3 ml PER PROTOCOL IV ; Start 01/18/19 at 12:00 Ondansetron HCl (Zofran Inj) 4 mg Q6H PRN IV NAUSEA/VOMITING; Start 01/18/19 at 12:00 Acetaminophen (Tylenol Tab) 650 mg Q6H PRN PO .PAIN 1-3 OR TEMP Last administered on 01/22/19 04:05; Admin Dose 650 MG; Start 01/18/19 at 12:00 Acetaminophen/ Hydrocodone Bitart ([place] (5/325)) 1 tab Q6H PRN PO .MOD PAIN 4- 6 Last administered on 01/19/19at 00:47; Admin Dose 1 TAB; Start 01/18/19 at 12:00 Morphine Sulfate (morphine) 2 mg Q4H PRN IV .SEVERE PAIN 7-10 Last administered on 01/18/19at 14:17; Admin Dose 2 MG; Start 01/18/19 at 12:00 Docusate Sodium (Colace) 100 mg Q12H PRN PO .CONSTIPATION; Start 01/18/19 at 12:00 Magnesium Hydroxide (Milk Of Mag) 30 ml DAILY PRN PO .CONSTIPATION; Start 01/18/19 at 12:00 Albuterol/ Ipratropium (Duoneb) 3 ml Q4H RESP THERAPY PRN HHN SHORTNESS OF BREATH; Start 01/18/19 at 12:00 Hydralazine HCl (Apresoline) 10 mg Q6H PRN IV SBP GREATER THAN 180; Start 01/18/19 at 12:00 Nitroglycerin (Nitroglycerin (Sl Tab) 0.4 Mg) 1 tab Q5M PRN SL ANGINA; Start 01/18/19 at 12:00 Cholecalciferol (Vitamin D) 1,000 unit DAILY PO Last administered on 01/22/19at 09:10; Admin Dose 1,000 UNIT; Start 01/19/19 at 09:00 Gabapentin (Neurontin) 300 mg TID PO Last administered on 01/22/19at 13:20; Admin Dose 300 MG; Start 01/18/19 at 13:00 Meclizine HCl (Antivert) 25 mg Q6H PRN PO DIZZINESS; Start 01/18/19 at 12:00 Metoprolol Tartrate (Lopressor) 25 mg BID PO Last administered on 01/19/19at 08:38; Admin Dose 25 MG; Start 01/18/19 at 21:00 Pantoprazole (Protonix Tab) 40 mg DAILY PO Last administered on 01/22/19 09:10; Admin Dose 40 MG; Start 01/19/19 at 09:00 Atorvastatin Calcium (Lipitor) 10 mg HS PO Last administered on 01/21/19 20:48; Admin Dose 10 MG; Start 01/18/19 at 21:00 Ertapenem 0.5 gm/ Sodium Chloride 100 ml @ 200 mls/hr Q24H IVPB Last administered on 01/22/19 13:21; Admin Dose 200 MLS/HR; Start 01/18/19 at 14:00 Diagnostic Test (Pha) (Accu-Chek) 1 ea 02 XX Last administered on 01/19/19at 01:54; Admin Dose 1 EA; Start 01/19/19 at 02:00 Sodium Hypochlorite (Dakins Diluted ()) 1 applic DAILY TP Last administered on 01/22/19 09:11; Admin Dose 1 APPLIC; Start 01/19/19 at 09:00 Insulin Aspart (Novolog Insulin Pen) NOVOLOG *MILD* ALGORITHM WITH MEALS BEDTIME SC ; Start 01/19/19 at 07:35 Apixaban (Eliquis) 2.5 mg BID PO Last administered on 01/22/19 09:10; Admin Dose 2.5 MG; Start 01/19/19 at 21:00 Lactated Ringer's 1,000 ml @ 75 mls/hr [id number] IV Last administered on 01/22/19 13:23; Admin Dose 75 MLS/HR; Start 01/19/19 at 19:30 GIANNI RANGEL MD Jan 22, 2019 15:23
[2019-01-22] MEDS: ATORVASTATIN 10 MG TAB PO SCH (20:40)
[2019-01-23] VITALS (14 sets, daily range): BP systolic 73–116; BP diastolic 46–76; PULSE 82–100; RESP 16–20
[2019-01-23] MEDS: ACCU-CHEK XX SCH (02:00)
[2019-01-23] MEDS: INSULIN ASPART [NOVOLOG] 3 ML PEN SC SCH ×4 (08:50→21:00)
[2019-01-23] MEDS: CHOLECALCIFEROL 1,000 UNIT TAB PO SCH (08:51)
[2019-01-23] MEDS: PANTOPRAZOLE (EC) 40 MG TAB PO SCH (08:52)
[2019-01-23] MEDS: GABAPENTIN 300 MG CAP PO SCH ×3 (08:53→21:07)
[2019-01-23] MEDS: APIXABAN 5 MG TABLET PO SCH ×2 (08:57→21:08)
[2019-01-23] MEDS: DAKINS 0.0125%(1/40) 473 ML SOLUTION TP SCH (09:24)
[2019-01-23] MEDS: METOPROLOL 25 MG TAB PO SCH (09:24)
[2019-01-23] MEDS ORDERED: SOD CHLORIDE 0.9% 250 ML IV ONE (11:00)
--- NOTE | 2019-01-23 11:16 | CONS ---
[facility] HCIS Consult Follow-up Patient Name: Mary Brown Unit Number: [id number] Date of : 1930 Patient Status: Admitted Inpatient Attending Doctor: Nohemy Jessica Edit: JAQUELINE JACKSON M.D. on 01/25/19 @ 08:03 Renetta: I discussed the management with [employer]NAGER Dali and agree Assessment/Plan Assessment/Plan Hospital Course (Demo Recall) - SIRS vs sepsis - low grade temp, tachycardia, hypotension - Diabetic R foot ulcer with MRI suggestive of early OM (ESR 45). MRI on 12/31/2018 showed mild bone marrow edema in R 4th toe proximal phalanx which could represent early OM or nonspecific stress reaction. Moderate soft tissue edema without evidence of abscess, suggesting cellulitis. The wound culture on 12/31/2018 grew Enterobacter, Corynebacteria and Stenotrophomonas - severe PAD - s/p R iliofemoral endarterectomy 01/18/2019 - h/o revascularization in the past - T2DM - Hgb A1c 6.8% - CKD - Atrial fib - HTN - Mild , mild AR/MR, and mild-mod TR - ACD - mental status change, hallucinations- we suspect levofloxacin (01/18/2019- 01/20/2019) is causing mental status change and hallucinations, and so stopped it recommendations: - f/u blood cultures (NGTD) - trend fever curve/VS - continue ertapenem (initially started as meropenem 01/02/2019-) alone for now - the original plan is to complete 6 week course of antibiotics Plan was d/w patient's son at bedside, nsg, and with Dr. Jackson. Consultation Date/Type/Reason Admit Date/Time Jan 18, 2019 at 06:06 Initial Consult Date 01/18/19 Type of Consult ID Requesting Provider: NOHEMY JESSICA Date/Time of Note DATE: 01/23/19 TIME: 11:15 24 HR Interval Summary Free Text/Dictation Patient walker river with confusion. Per patient's son, she still has intermittent hallucinations "seeing people who are not there," but that they are improved and "not so much." She has been having hypotension after BP medication given and was c/o dizziness while sitting up at side of the bed with PT. SBP up to 115 when rechecked at bedside. Otherwise denied pain, sob, cp, cough, n/v/d, dysuria, pruritis, or rash. Exam/Review of Systems Exam Vitals Vital Signs Date Temp Pulse Resp B/P (MAP) Pulse Ox O2 O2 Flow FiO2 Time Delivery Rate 01/23/19 87 86/51 (63) 10:56 01/23/19 98.8 20 98 Nasal 07:34 Cannula 01/23/19 2.0 01:29 Intake and Output 01/22/19 01/22/19 01/23/19 1515:00 23:00 07:00 IntakeIntake Total 320 ml 640 ml 120 ml OutputOutput Total 300 ml BalanceBalance 320 ml 640 ml -180 ml Allergies Coded Allergies Penicillins (Verified Allergy, Unknown, rash, 01/18/19) Constitutional: alert, well developed, other (sitting at the side of the bed with PT checking her BP) Psych: no complaints, nl mood/affect Head: normocephalic, atraumatic Eyes: nl conjunctiva, nl lids, nl sclera ENMT: nl external ears & nose, nl nasal mucosa & septum, mucosa pink and moist (no thrush) Neck: supple, non-tender Respiratory: clear to auscultation, normal air movement, other (on o2 via nc) Cardiovascular: regular rate and rhythm, nl pulses, systolic murmur Gastrointestinal: soft, non-tender, bowel sounds (normoactive ) Extremities: normal pulses, other (R foot wrapped in a c/d/i kerlix dressing. RUE PICC site is c/d/i. ) Neurological: nl speech, other (CADDO) Skin: nl turgor; No rash or lesions Results Result Diagram: 01/23/19 0442 01/23/19 0442 Results 24hrs Laboratory Tests Test 01/22/19 11:34 01/22/19 16:50 01/22/19 20:37 01/23/19 04:42 Bedside Glucose 116 87 93 White Blood Count 6.7 # Red Blood Count 2.76 L Hemoglobin 7.6 L Hematocrit 24.5 L Mean Corpuscular Volume 88.8 Mean Corpuscular 27.5 L Hemoglobin Mean Corpuscular 31.0 L Hemoglobin Concent Red Cell Distribution 13.3 Width Platelet Count 247 Mean Platelet Volume 9.3 Immature Granulocytes % 0.300 Neutrophils % 64.2 Lymphocytes % 19.1 Monocytes % 11.7 H Eosinophils % 4.3 Basophils % 0.4 Nucleated Red Blood 0.0 Cells % Immature Granulocytes # 0.020 Neutrophils # 4.3 Lymphocytes # 1.3 Monocytes # 0.8 Eosinophils # 0.3 Basophils # 0.0 Nucleated Red Blood 0.0 Cells # Sodium Level 136 Potassium Level 5.1 Chloride Level 107 Carbon Dioxide Level 23 Anion Gap 6 Blood Urea Nitrogen 28 H Creatinine 1.52 H Est Glomerular Filtrat Rate mL/min Glucose Level 70 Lactic Acid Level 0.7 Calcium Level 7.9 L Phosphorus Level 4.1 Magnesium Level 1.7 Procalcitonin 0.22 H Test 01/23/19 08:49 Bedside Glucose 102 Medications Medication Current Medications IV Flush (NS 3 ml) 3 ml PER PROTOCOL IV ; Start 01/18/19 at 12:00 Ondansetron HCl (Zofran Inj) 4 mg Q6H PRN IV NAUSEA/VOMITING; Start 01/18/19 at 12:00 Acetaminophen (Tylenol Tab) 650 mg Q6H PRN PO .PAIN 1-3 OR TEMP Last administered on 01/22/19at 04:05; Admin Dose 650 MG; Start 01/18/19 at 12:00 Acetaminophen/ Hydrocodone Bitart ([place] (5/325)) 1 tab Q6H PRN PO .MOD PAIN 4- 6 Last administered on 01/19/19at 00:47; Admin Dose 1 TAB; Start 01/18/19 at 12:00 Morphine Sulfate (morphine) 2 mg Q4H PRN IV .SEVERE PAIN 7-10 Last administered on 01/18/19at 14:17; Admin Dose 2 MG; Start 01/18/19 at 12:00 Docusate Sodium (Colace) 100 mg Q12H PRN PO .CONSTIPATION; Start 01/18/19 at 12:00 Magnesium Hydroxide (Milk Of Mag) 30 ml DAILY PRN PO .CONSTIPATION; Start 01/18/19 at 12:00 Albuterol/ Ipratropium (Duoneb) 3 ml Q4H RESP THERAPY PRN HHN SHORTNESS OF BREATH; Start 01/18/19 at 12:00 Hydralazine HCl (Apresoline) 10 mg Q6H PRN IV SBP GREATER THAN 180; Start 01/18/19 at 12:00 Nitroglycerin (Nitroglycerin (Sl Tab) 0.4 Mg) 1 tab Q5M PRN SL ANGINA; Start 01/18/19 at 12:00 Cholecalciferol (Vitamin D) 1,000 unit DAILY PO Last administered on 01/23/19 08:51; Admin Dose 1,000 UNIT; Start 01/19/19 at 09:00 Gabapentin (Neurontin) 300 mg TID PO Last administered on 01/23/19 08:53; Admin Dose 300 MG; Start 01/18/19 at 13:00 Meclizine HCl (Antivert) 25 mg Q6H PRN PO DIZZINESS; Start 01/18/19 at 12:00 Metoprolol Tartrate (Lopressor) 25 mg BID PO Last administered on 01/23/19 09:24; Admin Dose 25 MG; Start 01/18/19 at 21:00 Pantoprazole (Protonix Tab) 40 mg DAILY PO Last administered on 01/23/19 08:52; Admin Dose 40 MG; Start 01/19/19 at 09:00 Atorvastatin Calcium (Lipitor) 10 mg HS PO Last administered on 01/22/19 20:40; Admin Dose 10 MG; Start 01/18/19 at 21:00 Ertapenem 0.5 gm/ Sodium Chloride 100 ml @ 200 mls/hr Q24H IVPB Last administered on 01/22/19 13:21; Admin Dose 200 MLS/HR; Start 01/18/19 at 14:00 Diagnostic Test (Pha) (Accu-Chek) 1 ea 02 XX Last administered on 01/19/19 01:54; Admin Dose 1 EA; Start 01/19/19 at 02:00 Sodium Hypochlorite (Dakins Diluted ()) 1 applic DAILY TP Last administered on 01/23/19 09:24; Admin Dose 1 APPLIC; Start 01/19/19 at 09:00 Insulin Aspart (Novolog Insulin Pen) NOVOLOG *MILD* ALGORITHM WITH MEALS BEDTIME SC ; Start 01/19/19 at 07:35 Apixaban (Eliquis) 2.5 mg BID PO Last administered on 01/23/19at 08:57; Admin Dose 2.5 MG; Start 01/19/19 at 21:00 Sodium Chloride 250 ml @ 250 mls/hr Q1H ONCE IV Last administered on 01/23/19at 11:03; Admin Dose 250 MLS/HR; Start 01/23/19 at 11:00; Stop 01/23/19 at 11:59 TIAGO MARLOW NP Jan 23, 2019 11:16
[2019-01-23] MEDS ORDERED: SOD CHLORIDE 0.9% 250 ML IV* ONE (12:03)
--- NOTE | 2019-01-23 12:15 | PN ---
Date/Time of Note Date/Time of Note DATE: 01/23/19 TIME: 12:13 Assessment/Plan VTE Prophylaxis Risk score (from Ns)>0 risk: 5 SCD applied (from Ns): No SCD contraindicated: other Pharmacological prophylaxis: apixaban Lines/Catheters [facility]ter Type (from [facility]): PICC Line Central line still needed: Yes Urinary Cath still in place: No Assessment/Plan Hospital Course S: Patient still with occasional confusion but overall less delirium and hallucination last 48 hours. Seen by infectious disease team earlier today. O: VS see below PE: Gen: Frail elderly woman supine in bed, awake and alert. Head: normocephalic, atraumatic Eyes: nl conjunctiva, nl lids ENMT: nl external ears & nose, nl nasal mucosa & septum Neck: supple Respiratory: clear to auscultation B/L Cardiovascular: irregular rhythm Gastrointestinal: soft, non-tender Extremities: L foot faint DP palpable pulse. R foot dopplerable DP. Distal foot bandaged. Assessment/Plan: 88-year-old woman with history of A fib, PAD, and diabetes now status post right iliofemoral endarterectomy (01/18) #Delirium and hallucinations-slightly improved in the last 24 hours. This may be a prolonged postoperative reaction, also patient has been on ertapenem and Levaquin antibiotics which can cause hallucinations and AMS as side effects (she had also been on these antibiotics as an outpatient prior to this admission for osteomyelitis via PICC line at home). Levaquin was stopped by ID team -Monitor for now, cautiously continue ertapenem per ID recommendations -Continue PT and OT as tolerated # Severe PAD- h/o revascularization in the past - status post right iliofemoral endarterectomy 01/18. 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 - Dr. Jackson following, again they are for now recommending continuing ertapenem - Again Levaquin has been stopped secondary to the altered mental status and hallucinations # Diabetes Mellitus type 2 -Continue ISS and accuchecks # Chronic kidney disease- at baseline -Monitor, continue to renally dose all medications # Atrial fibrillation: Stable -Continue on Eliquis 2.5 mg PO BID. # HTN: Low normal range -Given low blood pressure this morning, will stop the beta-juan. # Anemia of chronic disease -Monitor DVT: None GI: Protonix Dispo: Severe delirium and hallucinations after surgery, likely from ertapenem + levaquin. After this resolves plan to discharge with home health versus SNF.. Result Diagram: 01/23/192 01/23/192 Results 24hrs Laboratory Tests Test 01/22/19 16:50 01/22/19 20:37 01/23/19 04:42 01/23/19 08:49 Bedside Glucose 87 93 102 White Blood Count 6.7 # Red Blood Count 2.76 L Hemoglobin 7.6 L Hematocrit 24.5 L Mean Corpuscular Volume 88.8 Mean Corpuscular 27.5 L Hemoglobin Mean Corpuscular 31.0 L Hemoglobin Concent Red Cell Distribution 13.3 Width Platelet Count 247 Mean Platelet Volume 9.3 Immature Granulocytes % 0.300 Neutrophils % 64.2 Lymphocytes % 19.1 Monocytes % 11.7 H Eosinophils % 4.3 Basophils % 0.4 Nucleated Red Blood 0.0 Cells % Immature Granulocytes # 0.020 Neutrophils # 4.3 Lymphocytes # 1.3 Monocytes # 0.8 Eosinophils # 0.3 Basophils # 0.0 Nucleated Red Blood 0.0 Cells # Sodium Level 136 Potassium Level 5.1 Chloride Level 107 Carbon Dioxide Level 23 Anion Gap 6 Blood Urea Nitrogen 28 H Creatinine 1.52 H Est Glomerular Filtrat Rate mL/min Glucose Level 70 Lactic Acid Level 0.7 Calcium Level 7.9 L Phosphorus Level 4.1 Magnesium Level 1.7 Procalcitonin 0.22 H Exam/Review of Systems Exam Vitals Vital Signs Date Temp Pulse Resp B/P (MAP) Pulse Ox O2 O2 Flow FiO2 Time Delivery Rate 01/23/19 87 95/57 (70) 11:29 01/23/19 Nasal 3.0 11:25 Cannula 01/23/19 98.8 20 98 07:34 Intake and Output 01/22/19 01/22/19 01/23/19 1515:00 23:00 07:00 IntakeIntake Total 320 ml 640 ml 120 ml OutputOutput Total 300 ml BalanceBalance 320 ml 640 ml -180 ml Results Results 24hrs Laboratory Tests Test 01/22/19 16:50 01/22/19 20:37 01/23/19 04:42 01/23/19 08:49 Bedside Glucose 87 93 102 White Blood Count 6.7 # Red Blood Count 2.76 L Hemoglobin 7.6 L Hematocrit 24.5 L Mean Corpuscular Volume 88.8 Mean Corpuscular 27.5 L Hemoglobin Mean Corpuscular 31.0 L Hemoglobin Concent Red Cell Distribution 13.3 Width Platelet Count 247 Mean Platelet Volume 9.3 Immature Granulocytes % 0.300 Neutrophils % 64.2 Lymphocytes % 19.1 Monocytes % 11.7 H Eosinophils % 4.3 Basophils % 0.4 Nucleated Red Blood 0.0 Cells % Immature Granulocytes # 0.020 Neutrophils # 4.3 Lymphocytes # 1.3 Monocytes # 0.8 Eosinophils # 0.3 Basophils # 0.0 Nucleated Red Blood 0.0 Cells # Sodium Level 136 Potassium Level 5.1 Chloride Level 107 Carbon Dioxide Level 23 Anion Gap 6 Blood Urea Nitrogen 28 H Creatinine 1.52 H Est Glomerular Filtrat Rate mL/min Glucose Level 70 Lactic Acid Level 0.7 Calcium Level 7.9 L Phosphorus Level 4.1 Magnesium Level 1.7 Procalcitonin 0.22 H Medications Medication Current Medications IV Flush (NS 3 ml) 3 ml PER PROTOCOL IV ; Start 01/18/19 at 12:00 Ondansetron HCl (Zofran Inj) 4 mg Q6H PRN IV NAUSEA/VOMITING; Start 01/18/19 at 12:00 Acetaminophen (Tylenol Tab) 650 mg Q6H PRN PO .PAIN 1-3 OR TEMP Last administered on 01/22/19at 04:05; Admin Dose 650 MG; Start 01/18/19 at 12:00 Acetaminophen/ Hydrocodone Bitart ([place] (5/325)) 1 tab Q6H PRN PO .MOD PAIN 4- 6 Last administered on 01/19/19at 00:47; Admin Dose 1 TAB; Start 01/18/19 at 12:00 Docusate Sodium (Colace) 100 mg Q12H PRN PO .CONSTIPATION; Start 01/18/19 at 12:00 Magnesium Hydroxide (Milk Of Mag) 30 ml DAILY PRN PO .CONSTIPATION; Start 01/18/19 at 12:00 Albuterol/ Ipratropium (Duoneb) 3 ml Q4H RESP THERAPY PRN HHN SHORTNESS OF BREATH; Start 01/18/19 at 12:00 Hydralazine HCl (Apresoline) 10 mg Q6H PRN IV SBP GREATER THAN 180; Start 01/18/19 at 12:00 Nitroglycerin (Nitroglycerin (Sl Tab) 0.4 Mg) 1 tab Q5M PRN SL ANGINA; Start 01/18/19 at 12:00 Cholecalciferol (Vitamin D) 1,000 unit DAILY PO Last administered on 01/23/19 08:51; Admin Dose 1,000 UNIT; Start 01/19/19 at 09:00 Gabapentin (Neurontin) 300 mg TID PO Last administered on 01/23/19 08:53; Admin Dose 300 MG; Start 01/18/19 at 13:00 Meclizine HCl (Antivert) 25 mg Q6H PRN PO DIZZINESS; Start 01/18/19 at 12:00 Pantoprazole (Protonix Tab) 40 mg DAILY PO Last administered on 01/23/19 08:52; Admin Dose 40 MG; Start 01/19/19 at 09:00 Atorvastatin Calcium (Lipitor) 10 mg HS PO Last administered on 01/22/19 20:40; Admin Dose 10 MG; Start 01/18/19 at 21:00 Ertapenem 0.5 gm/ Sodium Chloride 100 ml @ 200 mls/hr Q24H IVPB Last administered on 01/22/19 13:21; Admin Dose 200 MLS/HR; Start 01/18/19 at 14:00 Diagnostic Test (Pha) (Accu-Chek) 1 ea 02 XX Last administered on 01/19/19 01:54; Admin Dose 1 EA; Start 01/19/19 at 02:00 Sodium Hypochlorite (Dakins Diluted (40)) 1 applic DAILY TP Last administered on 01/23/19 09:24; Admin Dose 1 APPLIC; Start 01/19/19 at 09:00 Insulin Aspart (Novolog Insulin Pen) NOVOLOG *MILD* ALGORITHM WITH MEALS BEDTIME SC ; Start 01/19/19 at 07:35 Apixaban (Eliquis) 2.5 mg BID PO Last administered on 01/23/19 08:57; Admin Dose 2.5 MG; Start 01/19/19 at 21:00 Morphine Sulfate (morphine) 0.5 mg Q4H PRN IV .SEVERE PAIN 7-10; Start 01/23/19 at 16:00 NOHEMY JESSICA Jan 23, 2019 12:15
[2019-01-23] MEDS: ERTAPENEM SODIUM 0.5 GM in SOD CHLORIDE 0.9% 100 ML IVPB SCH (13:53)
[2019-01-23] MEDS ORDERED: morphine 2 MG INJ IV PRN (16:00)
[2019-01-23] MEDS: ATORVASTATIN 10 MG TAB PO SCH (21:07)
[2019-01-23] MEDS: ACETAMINOPHEN 325 MG TAB PO PRN (23:06)
[2019-01-24 02:00] VITALS: BP 119/74; PULSE 80; RESP 17
[2019-01-24] MEDS: ACCU-CHEK XX SCH ×2 (02:00→21:40)
[2019-01-24 07:20] VITALS: BP 94/54; PULSE 91; RESP 18
[2019-01-24] MEDS: INSULIN ASPART [NOVOLOG] 3 ML PEN SC SCH ×4 (07:50→21:00)
[2019-01-24] MEDS: GABAPENTIN 300 MG CAP PO SCH ×3 (08:36→20:37)
[2019-01-24] MEDS: CHOLECALCIFEROL 1,000 UNIT TAB PO SCH (08:37)
[2019-01-24] MEDS: PANTOPRAZOLE (EC) 40 MG TAB PO SCH (08:37)
[2019-01-24] MEDS: APIXABAN 5 MG TABLET PO SCH ×2 (08:37→20:38)
[2019-01-24] MEDS: DAKINS 0.0125%(1/40) 473 ML SOLUTION TP SCH (08:39)
--- NOTE | 2019-01-24 13:44 | PN ---
Date/Time of Note Date/Time of Note DATE: 01/24/19 TIME: 13:30 Assessment/Plan VTE Prophylaxis Risk score (from Ns)>0 risk: 6 SCD applied (from Ns): No SCD contraindicated: other Pharmacological prophylaxis: apixaban Lines/Catheters IV Catheter Type (from [facility]): PICC Line Central line still needed: Yes Urinary Cath still in place: No Assessment/Plan Hospital Course S: Patient per nursing staff and family a bit more awake and alert today. Less loose stools. O: VS see below PE: Gen: Frail elderly woman supine in bed, today more awake and alert. Head: normocephalic, atraumatic Eyes: nl conjunctiva, nl lids ENMT: nl external ears & nose, nl nasal mucosa & septum Neck: supple Respiratory: clear to auscultation B/L Cardiovascular: irregular rhythm Gastrointestinal: soft, non-tender Extremities: L foot faint DP palpable pulse. R foot dopplerable DP. Distal foot bandaged. Assessment/Plan: 88-year-old woman with history of A fib, PAD, and diabetes now status post right iliofemoral endarterectomy (01/18) #Delirium and hallucinations-slowly improving the last couple of days. This may be a prolonged postoperative reaction, also patient has been on ertapenem and Levaquin antibiotics which can cause hallucinations and AMS as side effects (she had also been on these antibiotics as an outpatient prior to this admission for osteomyelitis via PICC line at home). Levaquin was stopped by ID team a few days ago with, again, improvement in the symptoms -Monitor for now, cautiously continue ertapenem per ID recommendations -Continue PT and OT as tolerated # Severe PAD- h/o revascularization in the past - status post right iliofemoral endarterectomy 01/18. 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 - Dr. Jackson following, again they are for now recommending continuing ertapenem - Again Levaquin has been stopped secondary to the altered mental status and hallucinations # Diabetes Mellitus type 2 -Continue ISS and accuchecks # Chronic kidney disease- at baseline -Monitor, continue to renally dose all medications # Atrial fibrillation: Stable -Continue on Eliquis 2.5 mg PO BID. # HTN: Low normal range -Given low blood pressure this morning, will stop the beta-juan. # Anemia of chronic disease -Monitor DVT: None GI: Protonix Dispo: Severe delirium and hallucinations after surgery, likely from ertapenem + levaquin. After this resolves plan to discharge with home health versus SNF-Case management working on this. Result Diagram: 01/24/19 0446 01/24/19 0446 Results 24hrs Laboratory Tests Test 01/23/19 17:51 01/23/19 21:07 01/24/19 04:46 01/24/19 06:49 Bedside Glucose 129 110 White Blood Count 6.5 Red Blood Count 3.28 L Hemoglobin 9.0 L Hematocrit 29.1 L Mean Corpuscular 88.7 Volume Mean Corpuscular 27.4 L Hemoglobin Mean Corpuscular 30.9 L Hemoglobin Concent Red Cell 13.9 Distribution Width Platelet Count 257 Mean Platelet 9.0 Volume Immature 0.500 H Granulocytes % Neutrophils % 57.6 Lymphocytes % 24.4 Monocytes % 13.2 H Eosinophils % 3.8 Basophils % 0.5 Nucleated Red Blood 0.0 Cells % Immature 0.030 Granulocytes # Neutrophils # 3.8 Lymphocytes # 1.6 Monocytes # 0.9 Eosinophils # 0.3 Basophils # 0.0 Nucleated Red Blood 0.0 Cells # Sodium Level 134 L Potassium Level 5.4 H Chloride Level 106 Carbon Dioxide 23 Level Anion Gap 5 Blood Urea Nitrogen 31 H Creatinine 1.60 H Est Glomerular Filtrat Rate mL/min Glucose Level 88 Calcium Level 8.0 L Lab Scanned Report BLOOD TRANSFUSION Test 01/24/19 08:24 01/24/19 12:46 Bedside Glucose 82 104 Exam/Review of Systems Exam Vitals Vital Signs Date Temp Pulse Resp B/P (MAP) Pulse Ox O2 O2 Flow FiO2 Time Delivery Rate 01/24/19 98.9 91 18 94/54 (67) 99 07:20 01/24/19 Nasal 02:00 Cannula 01/23/19 2.0 20:00 Intake and Output 01/23/19 01/23/19 01/24/19 1515:00 23:00 07:00 IntakeIntake Total 550 ml 555 ml OutputOutput Total 1 ml BalanceBalance 549 ml 555 ml Results Results 24hrs Laboratory Tests Test 01/23/19 17:51 01/23/19 21:07 01/24/19 04:46 01/24/19 06:49 Bedside Glucose 129 110 White Blood Count 6.5 Red Blood Count 3.28 L Hemoglobin 9.0 L Hematocrit 29.1 L Mean Corpuscular 88.7 Volume Mean Corpuscular 27.4 L Hemoglobin Mean Corpuscular 30.9 L Hemoglobin Concent Red Cell 13.9 Distribution Width Platelet Count 257 Mean Platelet 9.0 Volume Immature 0.500 H Granulocytes % Neutrophils % 57.6 Lymphocytes % 24.4 Monocytes % 13.2 H Eosinophils % 3.8 Basophils % 0.5 Nucleated Red Blood 0.0 Cells % Immature 0.030 Granulocytes # Neutrophils # 3.8 Lymphocytes # 1.6 Monocytes # 0.9 Eosinophils # 0.3 Basophils # 0.0 Nucleated Red Blood 0.0 Cells # Sodium Level 134 L Potassium Level 5.4 H Chloride Level 106 Carbon Dioxide 23 Level Anion Gap 5 Blood Urea Nitrogen 31 H Creatinine 1.60 H Est Glomerular Filtrat Rate mL/min Glucose Level 88 Calcium Level 8.0 L Lab Scanned Report BLOOD TRANSFUSION Test 01/24/19 08:24 01/24/19 12:46 Bedside Glucose 82 104 Medications Medication Current Medications IV Flush (NS 3 ml) 3 ml PER PROTOCOL IV ; Start 01/18/19 at 12:00 Ondansetron HCl (Zofran Inj) 4 mg Q6H PRN IV NAUSEA/VOMITING; Start 01/18/19 at 12:00 Acetaminophen (Tylenol Tab) 650 mg Q6H PRN PO .PAIN 1-3 OR TEMP Last adm inistered on 01/23/19at 23:06; Admin Dose 650 MG; Start 01/18/19 at 12:00 Acetaminophen/ Hydrocodone Bitart ([place] (5/325)) 1 tab Q6H PRN PO .MOD PAIN 4- 6 Last administered on 01/19/19at 00:47; Admin Dose 1 TAB; Start 01/18/19 at 12:00 Docusate Sodium (Colace) 100 mg Q12H PRN PO .CONSTIPATION; Start 01/18/19 at 12:00 Magnesium Hydroxide (Milk Of Mag) 30 ml DAILY PRN PO .CONSTIPATION; Start 01/18/19 at 12:00 Albuterol/ Ipratropium (Duoneb) 3 ml Q4H RESP THERAPY PRN HHN SHORTNESS OF BREATH; Start 01/18/19 at 12:00 Hydralazine HCl (Apresoline) 10 mg Q6H PRN IV SBP GREATER THAN 180; Start 01/18/19 at 12:00 Nitroglycerin (Nitroglycerin (Sl Tab) 0.4 Mg) 1 tab Q5M PRN SL ANGINA; Start 01/18/19 at 12:00 Cholecalciferol (Vitamin D) 1,000 unit DAILY PO Last administered on 01/24/19 08:37; Admin Dose 1,000 UNIT; Start 01/19/19 at 09:00 Gabapentin (Neurontin) 300 mg TID PO Last administered on 01/24/19 12:51; Admin Dose 300 MG; Start 01/18/19 at 13:00 Meclizine HCl (Antivert) 25 mg Q6H PRN PO DIZZINESS; Start 01/18/19 at 12:00 Pantoprazole (Protonix Tab) 40 mg DAILY PO Last administered on 01/24/19 08:37; Admin Dose 40 MG; Start 01/19/19 at 09:00 Atorvastatin Calcium (Lipitor) 10 mg HS PO Last administered on 01/23/19 21:07; Admin Dose 10 MG; Start 01/18/19 at 21:00 Ertapenem 0.5 gm/ Sodium Chloride 100 ml @ 200 mls/hr Q24H IVPB Last administered on 01/23/19 13:53; Admin Dose 200 MLS/HR; Start 01/18/19 at 14:00 Diagnostic Test (Pha) (Accu-Chek) 1 ea 02 XX Last administered on 01/19/19 01:54; Admin Dose 1 EA; Start 01/19/19 at 02:00 Sodium Hypochlorite (Dakins Diluted ()) 1 applic DAILY TP Last administered on 01/24/19 08:39; Admin Dose 1 APPLIC; Start 01/19/19 at 09:00 Insulin Aspart (Novolog Insulin Pen) NOVOLOG *MILD* ALGORITHM WITH MEALS BEDTIME SC ; Start 01/19/19 at 07:35 Apixaban (Eliquis) 2.5 mg BID PO Last administered on 01/24/19 08:37; Admin Dose 2.5 MG; Start 01/19/19 at 21:00 Morphine Sulfate (morphine) 0.5 mg Q4H PRN IV .SEVERE PAIN 7-10; Start 01/23/19 at 16:00 NOHEMY JESSICA Jan 24, 2019 13:40
[2019-01-24] MEDS: ERTAPENEM SODIUM 0.5 GM in SOD CHLORIDE 0.9% 100 ML IVPB SCH (13:49)
[2019-01-24] MEDS ORDERED: SODIUM POLYSTYRENE 15 GM KIT (POWDER + SORBITOL) PO SCH (14:00)
[2019-01-24] MEDS ORDERED: ALTEPLASE (CATHFLO) 2 MG INJ CATHETER PRN (14:30)
[2019-01-24 14:37] VITALS: BP 101/71; PULSE 100; RESP 18
[2019-01-24] MEDS: ACETAMINOPHEN 325 MG TAB PO PRN ×2 (15:57→22:17)
--- NOTE | 2019-01-24 16:09 | CONS ---
Assessment/Plan Assessment/Plan Hospital Course (Demo Recall) - SIRS vs sepsis - low grade temp, tachycardia, hypotension - Diabetic R foot ulcer with MRI suggestive of early OM (ESR 45). MRI on 12/31/2018 showed mild bone marrow edema in R 4th toe proximal phalanx which could represent early OM or nonspecific stress reaction. Moderate soft tissue edema without evidence of abscess, suggesting cellulitis. The wound culture on 12/31/2018 grew Enterobacter, Corynebacteria and Stenotrophomonas - severe PAD - s/p R iliofemoral endarterectomy 01/18/2019 - h/o revascularization in the past - T2DM - Hgb A1c 6.8% - CKD - Atrial fib - HTN - Mild , mild AR/MR, and mild-mod TR - ACD - mental status change, hallucinations- we suspect levofloxacin (01/18/2019-) is causing mental status change and hallucinations, and so stopped it recommendations: - f/u blood cultures (NGTD) - trend fever curve/VS - continue ertapenem (initially started as meropenem 01/02/2019-) alone for now - the original plan is to complete 6 week course of antibiotics Consultation Date/Type/Reason Admit Date/Time Jan 18, 2019 at 06:06 Initial Consult Date 01/18/19 Requesting Provider: NOHEMY JESSICA Date/Time of Note DATE: 01/24/19 TIME: 16:09 24 HR Interval Summary Free Text/Dictation much more awake and alert. d/w family at bedside. multiple members. questions answered. Exam/Review of Systems Exam Vitals Vital Signs Date Temp Pulse Resp B/P (MAP) Pulse Ox O2 O2 Flow FiO2 Time Delivery Rate 01/24/19 98.9 100 18 101/71 100 14:37 (81) 01/24/19 Nasal 02:00 Cannula 01/23/19 2.0 20:00 Intake and Output 01/23/19 01/23/19 01/24/19 1515:00 23:00 07:00 IntakeIntake Total 550 ml 555 ml OutputOutput Total 1 ml BalanceBalance 549 ml 555 ml Constitutional: alert, oriented, well developed Psych: no complaints Eyes: EOMI Respiratory: clear to auscultation Cardiovascular: regular rate and rhythm Gastrointestinal: soft Neurological: MEDICAL BILLER/CODER II-XII intact Results Result Diagram: 01/24/19 0446 01/24/19 0446 Results 24hrs Laboratory Tests Test 01/23/19 17:51 01/23/19 21:07 01/24/19 04:46 01/24/19 06:49 Bedside Glucose 129 110 White Blood Count 6.5 Red Blood Count 3.28 L Hemoglobin 9.0 L Hematocrit 29.1 L Mean Corpuscular 88.7 Volume Mean Corpuscular 27.4 L Hemoglobin Mean Corpuscular 30.9 L Hemoglobin Concent Red Cell 13.9 Distribution Width Platelet Count 257 Mean Platelet 9.0 Volume Immature 0.500 H Granulocytes % Neutrophils % 57.6 Lymphocytes % 24.4 Monocytes % 13.2 H Eosinophils % 3.8 Basophils % 0.5 Nucleated Red Blood 0.0 Cells % Immature 0.030 Granulocytes # Neutrophils # 3.8 Lymphocytes # 1.6 Monocytes # 0.9 Eosinophils # 0.3 Basophils # 0.0 Nucleated Red Blood 0.0 Cells # Sodium Level 134 L Potassium Level 5.4 H Chloride Level 106 Carbon Dioxide 23 Level Anion Gap 5 Blood Urea Nitrogen 31 H Creatinine 1.60 H Est Glomerular Filtrat Rate mL/min Glucose Level 88 Calcium Level 8.0 L Lab Scanned Report BLOOD TRANSFUSION Test 01/24/19 08:24 01/24/19 12:46 Bedside Glucose 82 104 Medications Medication Current Medications IV Flush (NS 3 ml) 3 ml PER PROTOCOL IV ; Start 01/18/19 at 12:00 Ondansetron HCl (Zofran Inj) 4 mg Q6H PRN IV NAUSEA/VOMITING; Start 01/18/19 at 12:00 Acetaminophen (Tylenol Tab) 650 mg Q6H PRN PO .PAIN 1-3 OR TEMP Last administered on 01/24/19at 15:57; Admin Dose 650 MG; Start 01/18/19 at 12:00 Acetaminophen/ Hydrocodone Bitart ([place] (5/325)) 1 tab Q6H PRN PO .MOD PAIN 4- 6 Last administered on 01/19/19at 00:47; Admin Dose 1 TAB; Start 01/18/19 at 12:00 Docusate Sodium (Colace) 100 mg Q12H PRN PO .CONSTIPATION; Start 01/18/19 at 12:00 Magnesium Hydroxide (Milk Of Mag) 30 ml DAILY PRN PO .CONSTIPATION; Start 01/18/19 at 12:00 Albuterol/ Ipratropium (Duoneb) 3 ml Q4H RESP THERAPY PRN HHN SHORTNESS OF BREATH; Start 01/18/19 at 12:00 Hydralazine HCl (Apresoline) 10 mg Q6H PRN IV SBP GREATER THAN 180; Start 01/18/19 at 12:00 Nitroglycerin (Nitroglycerin (Sl Tab) 0.4 Mg) 1 tab Q5M PRN SL ANGINA; Start 01/18/19 at 12:00 Cholecalciferol (Vitamin D) 1,000 unit DAILY PO Last administered on 01/24/19 08:37; Admin Dose 1,000 UNIT; Start 01/19/19 at 09:00 Gabapentin (Neurontin) 300 mg TID PO Last administered on 01/24/19 12:51; Admin Dose 300 MG; Start 01/18/19 at 13:00 Meclizine HCl (Antivert) 25 mg Q6H PRN PO DIZZINESS; Start 01/18/19 at 12:00 Pantoprazole (Protonix Tab) 40 mg DAILY PO Last administered on 01/24/19 08:37; Admin Dose 40 MG; Start 01/19/19 at 09:00 Atorvastatin Calcium (Lipitor) 10 mg HS PO Last administered on 01/23/19 21:07; Admin Dose 10 MG; Start 01/18/19 at 21:00 Ertapenem 0.5 gm/ Sodium Chloride 100 ml @ 200 mls/hr Q24H IVPB Last administered on 01/24/19 13:49; Admin Dose 200 MLS/HR; Start 01/18/19 at 14:00 Diagnostic Test (Pha) (Accu-Chek) 1 ea 02 XX Last administered on 01/19/19 01:54; Admin Dose 1 EA; Start 01/19/19 at 02:00 Sodium Hypochlorite (Dakins Diluted ()) 1 applic DAILY TP Last administered on 01/24/19 08:39; Admin Dose 1 APPLIC; Start 01/19/19 at 09:00 Insulin Aspart (Novolog Insulin Pen) NOVOLOG *MILD* ALGORITHM WITH MEALS BEDTIME SC ; Start 01/19/19 at 07:35 Apixaban (Eliquis) 2.5 mg BID PO Last administered on 7/4/19at 08:37; Admin Dose 2.5 MG; Start 01/19/19 at 21:00 Morphine Sulfate (morphine) 0.5 mg Q4H PRN IV .SEVERE PAIN 7-10; Start 01/23/19 at 16:00 Sodium Polystyrene Sulfonate (Kayexelate 15 Gm Kit (Powder+Sorbitol)) 15 gm ONCE PO Last administered on 01/24/19at 14:19; Admin Dose 15 GM; Start 01/24/19 at 14:00; Stop 01/24/19 at 20:00 Alteplase, Recombinant (Cathflo (Activase)) 2 mg MAY REPEAT X1 PRN CATHETER IF CATHETER REMAINS OCCULUDED Last administered on 01/24/19at 15:09; Admin Dose 2 MG; Start 01/24/19 at 14:30 GIANNI RANGEL MD Jan 24, 2019 16:09
[2019-01-24 19:10] VITALS: BP 107/57; PULSE 62; RESP 20
[2019-01-24] MEDS: ATORVASTATIN 10 MG TAB PO SCH (20:37)
[2019-01-25 07:28] VITALS: BP 103/62; PULSE 94; RESP 18
[2019-01-25] MEDS: INSULIN ASPART [NOVOLOG] 3 ML PEN SC SCH ×4 (07:50→21:00)
[2019-01-25] MEDS: CHOLECALCIFEROL 1,000 UNIT TAB PO SCH (08:25)
[2019-01-25] MEDS: PANTOPRAZOLE (EC) 40 MG TAB PO SCH (08:25)
[2019-01-25] MEDS: APIXABAN 5 MG TABLET PO SCH ×2 (08:25→21:23)
[2019-01-25] MEDS: DAKINS 0.0125%(1/40) 473 ML SOLUTION TP SCH (08:25)
[2019-01-25] MEDS: GABAPENTIN 300 MG CAP PO SCH ×3 (08:25→21:23)
--- NOTE | 2019-01-25 11:12 | PN ---
Date/Time of Note Date/Time of Note DATE: 01/25/19 TIME: 11:11 Assessment/Plan VTE Prophylaxis Risk score (from Ns)>0 risk: 10 SCD applied (from [facility] [place] No SCD contraindicated: other Pharmacological prophylaxis: apixaban Lines/Catheters IV Catheter Type (from [facility]): PICC Line Central line still needed: Yes Urinary Cath still in place: No Assessment/Plan Hospital Course S: Patient tolerating diet, more awake and alert today, less hallucinations. Waiting for SNF placement. O: VS see below PE: Gen: Frail elderly woman supine in bed, today more awake and alert. Head: normocephalic, atraumatic Eyes: nl conjunctiva, nl lids ENMT: nl external ears & nose, nl nasal mucosa & septum Neck: supple Respiratory: clear to auscultation B/L Cardiovascular: irregular rhythm Gastrointestinal: soft, non-tender Extremities: L foot faint DP palpable pulse. R foot dopplerable DP. Distal foot bandaged. Assessment/Plan: 88-year-old woman with history of A fib, PAD, and diabetes now status post right iliofemoral endarterectomy (01/18) #Delirium and hallucinations-slowly improving the last couple of days. This may be a prolonged postoperative reaction, also patient has been on ertapenem and Levaquin antibiotics which can cause hallucinations and AMS as side effects (she had also been on these antibiotics as an outpatient prior to this admission for osteomyelitis via PICC line at home). Levaquin was stopped by ID team a few days ago with, again, improvement in the symptoms -Monitor for now, cautiously continue ertapenem per ID recommendations -end date likely to be around February 15, 2019 (for a total of 6 weeks of treatment) -Continue PT and OT as tolerated # Severe PAD- h/o revascularization in the past - status post right iliofemoral endarterectomy 01/18. 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 - Dr. Jackson following, again they are for now recommending continuing ertapenem - Again Levaquin has been stopped secondary to the altered mental status and hallucinations # Diabetes Mellitus type 2 -Continue ISS and accuchecks # Chronic kidney disease- at baseline -Monitor, continue to renally dose all medications # Atrial fibrillation: Stable -Continue on Eliquis 2.5 mg PO BID. # HTN: Low normal range -Given low blood pressure this morning, will stop the beta-juan. # Anemia of chronic disease -Monitor DVT: None GI: Protonix Dispo: Severe delirium and hallucinations after surgery, likely from ertapenem + levaquin. Pending placement to SNF-Case management working on this presently. Result Diagram: 01/25/19 0428 01/25/198 Results 24hrs Laboratory Tests Test 01/24/19 12:46 01/24/19 17:21 01/24/19 20:36 01/25/19 04:28 Bedside Glucose 104 121 140 White Blood Count 6.2 Red Blood Count 3.33 L Hemoglobin 9.1 L Hematocrit 29.5 L Mean Corpuscular Volume 88.6 Mean Corpuscular 27.3 L Hemoglobin Mean Corpuscular 30.8 L Hemoglobin Concent Red Cell Distribution 13.8 Width Platelet Count 277 Mean Platelet Volume 9.2 Immature Granulocytes % 0.300 Neutrophils % 57.1 Lymphocytes % 23.9 Monocytes % 13.1 H Eosinophils % 5.3 Basophils % 0.3 Nucleated Red Blood 0.0 Cells % Immature Granulocytes # 0.020 Neutrophils # 3.5 Lymphocytes # 1.5 Monocytes # 0.8 Eosinophils # 0.3 Basophils # 0.0 Nucleated Red Blood 0.0 Cells # Sodium Level 136 Potassium Level 5.1 Chloride Level 106 Carbon Dioxide Level 24 Anion Gap 6 Blood Urea Nitrogen 32 H Creatinine 1.56 H Est Glomerular Filtrat Rate mL/min Glucose Level 86 Calcium Level 7.6 L Phosphorus Level 4.7 Magnesium Level 1.7 Test 01/25/19 08:06 Bedside Glucose 94 Exam/Review of Systems Exam Vitals Vital Signs Date Temp Pulse Resp B/P (MAP) Pulse Ox O2 O2 Flow FiO2 Time Delivery Rate 01/25/19 97.6 94 18 103/62 99 07:28 (76) 01/24/19 Nasal 02:00 Cannula 01/23/19 2.0 20:00 Intake and Output 01/24/19 01/24/19 01/25/19 1414:59 22:59 06:59 IntakeIntake Total 200 ml BalanceBalance 200 ml Results Results 24hrs Laboratory Tests Test 01/24/19 12:46 01/24/19 17:21 01/24/19 20:36 01/25/19 04:28 Bedside Glucose 104 121 140 White Blood Count 6.2 Red Blood Count 3.33 L Hemoglobin 9.1 L Hematocrit 29.5 L Mean Corpuscular Volume 88.6 Mean Corpuscular 27.3 L Hemoglobin Mean Corpuscular 30.8 L Hemoglobin Concent Red Cell Distribution 13.8 Width Platelet Count 277 Mean Platelet Volume 9.2 Immature Granulocytes % 0.300 Neutrophils % 57.1 Lymphocytes % 23.9 Monocytes % 13.1 H Eosinophils % 5.3 Basophils % 0.3 Nucleated Red Blood 0.0 Cells % Immature Granulocytes # 0.020 Neutrophils # 3.5 Lymphocytes # 1.5 Monocytes # 0.8 Eosinophils # 0.3 Basophils # 0.0 Nucleated Red Blood 0.0 Cells # Sodium Level 136 Potassium Level 5.1 Chloride Level 106 Carbon Dioxide Level 24 Anion Gap 6 Blood Urea Nitrogen 32 H Creatinine 1.56 H Est Glomerular Filtrat Rate mL/min Glucose Level 86 Calcium Level 7.6 L Phosphorus Level 4.7 Magnesium Level 1.7 Test 01/25/19 08:06 Bedside Glucose 94 Medications Medication Current Medications IV Flush (NS 3 ml) 3 ml PER PROTOCOL IV ; Start 01/18/19 at 12:00 Ondansetron HCl (Zofran Inj) 4 mg Q6H PRN IV NAUSEA/VOMITING; Start 01/18/19 at 12:00 Acetaminophen (Tylenol Tab) 650 mg Q6H PRN PO .PAIN 1-3 OR TEMP Last administered on 01/24/19at 22:17; Admin Dose 650 MG; Start 01/18/19 at 12:00 Acetaminophen/ Hydrocodone Bitart ([place] (5/325)) 1 tab Q6H PRN PO .MOD PAIN 4- 6 Last administered on 01/19/19at 00:47; Admin Dose 1 TAB; Start 01/18/19 at 12:00 Docusate Sodium (Colace) 100 mg Q12H PRN PO .CONSTIPATION; Start 01/18/19 at 12:00 Magnesium Hydroxide (Milk Of Mag) 30 ml DAILY PRN PO .CONSTIPATION; Start 01/18/19 at 12:00 Albuterol/ Ipratropium (Duoneb) 3 ml Q4H RESP THERAPY PRN HHN SHORTNESS OF BREATH; Start 01/18/19 at 12:00 Hydralazine HCl (Apresoline) 10 mg Q6H PRN IV SBP GREATER THAN 180; Start 01/18/19 at 12:00 Nitroglycerin (Nitroglycerin (Sl Tab) 0.4 Mg) 1 tab Q5M PRN SL ANGINA; Start 01/18/19 at 12:00 Cholecalciferol (Vitamin D) 1,000 unit DAILY PO Last administered on 01/25/19 08:25; Admin Dose 1,000 UNIT; Start 01/19/19 at 09:00 Gabapentin (Neurontin) 300 mg TID PO Last administered on 01/25/19 08:25; Admin Dose 300 MG; Start 01/18/19 at 13:00 Meclizine HCl (Antivert) 25 mg Q6H PRN PO DIZZINESS; Start 01/18/19 at 12:00 Pantoprazole (Protonix Tab) 40 mg DAILY PO Last administered on 01/25/19 08:25; Admin Dose 40 MG; Start 01/19/19 at 09:00 Atorvastatin Calcium (Lipitor) 10 mg HS PO Last administered on 01/24/19 20:37; Admin Dose 10 MG; Start 01/18/19 at 21:00 Ertapenem 0.5 gm/ Sodium Chloride 100 ml @ 200 mls/hr Q24H IVPB Last administered on 01/24/19 13:49; Admin Dose 200 MLS/HR; Start 01/18/19 at 14:00 Diagnostic Test (Pha) (Accu-Chek) 1 ea 02 XX Last administered on 01/19/19at 01:54; Admin Dose 1 EA; Start 01/19/19 at 02:00 Sodium Hypochlorite (Dakins Diluted (40)) 1 applic DAILY TP Last administered on 01/25/19 08:25; Admin Dose 1 APPLIC; Start 01/19/19 at 09:00 Insulin Aspart (Novolog Insulin Pen) NOVOLOG *MILD* ALGORITHM WITH MEALS BE DTIME SC ; Start 01/19/19 at 07:35 Apixaban (Eliquis) 2.5 mg BID PO Last administered on 01/25/19 08:25; Admin Dose 2.5 MG; Start 01/19/19 at 21:00 Morphine Sulfate (morphine) 0.5 mg Q4H PRN IV .SEVERE PAIN 7-10; Start 01/23/19 at 16:00 Alteplase, Recombinant (Cathflo (Activase)) 2 mg MAY REPEAT X1 PRN CATHETER IF CATHETER REMAINS OCCULUDED Last administered on 01/24/19at 15:09; Admin Dose 2 MG; Start 01/24/19 at 14:30 NOHEMY JESSICA Jan 25, 2019 11:12
--- NOTE | 2019-01-25 11:45 | CONS ---
[facility] HCIS Consult Follow-up Patient Name: Mary Brown Unit Number: [id number] Date of : 1930 Patient Status: Admitted Inpatient Attending Doctor: Nohemy Jessica Edit: JAQUELINE JACKSON M.D. on 01/25/19 @ 20:35 Renetta: I discussed the management with REDUCING SYSTEM OPERATOR Carlos and agree Assessment/Plan Assessment/Plan Hospital Course (Demo Recall) - S/p SIRS vs sepsis - low grade temp, tachycardia, hypotension resolved - Diabetic R foot ulcer with MRI suggestive of early OM (ESR 45). MRI on 12/31/2018 showed mild bone marrow edema in R 4th toe proximal phalanx which could represent early OM or nonspecific stress reaction. Moderate soft tissue edema without evidence of abscess, suggesting cellulitis. The wound culture on 12/31/2018 grew Enterobacter, Corynebacteria and Stenotrophomonas - severe PAD - s/p R iliofemoral endarterectomy 01/18/2019 - h/o revascularization in the past - T2DM - Hgb A1c 6.8% - CKD - Atrial fib - HR stable - HTN - Mild , mild AR/MR, and mild-mod TR - ACD - mental status change, hallucinations- improved; we suspect levofloxacin (01/18/2019-01/20/2019) caused mental status change and hallucinations, and so stopped it - Allergy to PCN and levofloxacin recommendations: - f/u blood cultures (NGTD at day 4) - trend fever curve/VS - improved - continue ertapenem (initially started as meropenem 01/02/2019-); plan for is to complete 6 week course of antibiotic through 02/13/2019 (order placed) Management d/w patient's son RHODA Mg, and with Dr. Jackson Consultation Date/Type/Reason Admit Date/Time Jan 18, 2019 at 06:06 Initial Consult Date 01/18/19 Type of Consult Infectious Disease Requesting Provider: NOHEMY JESSICA Date/Time of Note DATE: 01/25/19 TIME: 11:40 24 HR Interval Summary Free Text/Dictation Awaiting SNF placement per d/w nursing. Mental status is improving; ate breakfast well; sleeping better per d/w pt's son Saurav. MIGUEL deferred as pt is asleep. Exam/Review of Systems Exam Vitals Vital Signs Date Temp Pulse Resp B/P (MAP) Pulse Ox O2 O2 Flow FiO2 Time Delivery Rate 01/25/19 97.6 94 18 103/62 99 07:28 (76) 01/24/19 Nasal 02:00 Cannula 01/23/19 2.0 20:00 Intake and Output 01/24/19 01/24/19 01/25/19 1515:00 23:00 07:00 IntakeIntake Total 200 ml BalanceBalance 200 ml Exam Constitutional: alert, well developed, other (lying in bed, sleeping soundly) Psych: other (Unable to assess) Head: normocephalic, atraumatic Eyes: nl lids ENMT: nl external ears & nose, nl nasal mucosa & septum, other (Pt sleeps with mouth open: mucosa pink and dry; no thrush; upper dentures in place) Neck: other (no swelling) Respiratory: clear to auscultation, normal air movement, other (on O2 via NC) Cardiovascular: irregular rhythm, nl pulses, systolic murmur Gastrointestinal: soft, non-tender, bowel sounds (normoactive ) Extremities: normal pulses, other (R foot wrapped with Kerlix c/d/i; RUE PICC site is c/d/i) Neurological: other (deferred as pt is asleep) Skin: nl turgor; No rash or lesions Results Result Diagram: 01/25/19 0428 01/25/198 Results 24hrs Laboratory Tests Test 01/24/19 12:46 01/24/19 17:21 01/24/19 20:36 01/25/19 04:28 Bedside Glucose 104 121 140 White Blood Count 6.2 Red Blood Count 3.33 L Hemoglobin 9.1 L Hematocrit 29.5 L Mean Corpuscular Volume 88.6 Mean Corpuscular 27.3 L Hemoglobin Mean Corpuscular 30.8 L Hemoglobin Concent Red Cell Distribution 13.8 Width Platelet Count 277 Mean Platelet Volume 9.2 Immature Granulocytes % 0.300 Neutrophils % 57.1 Lymphocytes % 23.9 Monocytes % 13.1 H Eosinophils % 5.3 Basophils % 0.3 Nucleated Red Blood 0.0 Cells % Immature Granulocytes # 0.020 Neutrophils # 3.5 Lymphocytes # 1.5 Monocytes # 0.8 Eosinophils # 0.3 Basophils # 0.0 Nucleated Red Blood 0.0 Cells # Sodium Level 136 Potassium Level 5.1 Chloride Level 106 Carbon Dioxide Level 24 Anion Gap 6 Blood Urea Nitrogen 32 H Creatinine 1.56 H Est Glomerular Filtrat Rate mL/min Glucose Level 86 Calcium Level 7.6 L Phosphorus Level 4.7 Magnesium Level 1.7 Test 01/25/19 08:06 Bedside Glucose 94 Medications Medication Current Medications IV Flush (NS 3 ml) 3 ml PER PROTOCOL IV ; Start 01/18/19 at 12:00 Ondansetron HCl (Zofran Inj) 4 mg Q6H PRN IV NAUSEA/VOMITING; Start 01/18/19 at 12:00 Acetaminophen (Tylenol Tab) 650 mg Q6H PRN PO .PAIN 1-3 OR TEMP Last administered on 01/24/19at 22:17; Admin Dose 650 MG; Start 01/18/19 at 12:00 Acetaminophen/ Hydrocodone Bitart ([place] (5/325)) 1 tab Q6H PRN PO .MOD PAIN 4- 6 Last administered on 01/19/19at 00:47; Admin Dose 1 TAB; Start 01/18/19 at 12:00 Docusate Sodium (Colace) 100 mg Q12H PRN PO .CONSTIPATION; Start 01/18/19 at 12:00 Magnesium Hydroxide (Milk Of Mag) 30 ml DAILY PRN PO .CONSTIPATION; Start 01/18/19 at 12:00 Albuterol/ Ipratropium (Duoneb) 3 ml Q4H RESP THERAPY PRN HHN SHORTNESS OF BREATH; Start 01/18/19 at 12:00 Hydralazine HCl (Apresoline) 10 mg Q6H PRN IV SBP GREATER THAN 180; Start 01/18/19 at 12:00 Nitroglycerin (Nitroglycerin (Sl Tab) 0.4 Mg) 1 tab Q5M PRN SL ANGINA; Start 01/18/19 at 12:00 Cholecalciferol (Vitamin D) 1,000 unit DAILY PO Last administered on 01/25/19 08:25; Admin Dose 1,000 UNIT; Start 01/19/19 at 09:00 Gabapentin (Neurontin) 300 mg TID PO Last administered on 01/25/19 08:25; Admin Dose 300 MG; Start 01/18/19 at 13:00 Meclizine HCl (Antivert) 25 mg Q6H PRN PO DIZZINESS; Start 01/18/19 at 12:00 Pantoprazole (Protonix Tab) 40 mg DAILY PO Last administered on 01/25/19 08:25; Admin Dose 40 MG; Start 01/19/19 at 09:00 Atorvastatin Calcium (Lipitor) 10 mg HS PO Last administered on 01/24/19 20:37; Admin Dose 10 MG; Start 01/18/19 at 21:00 Ertapenem 0.5 gm/ Sodium Chloride 100 ml @ 200 mls/hr Q24H IVPB Last administered on 01/24/19 13:49; Admin Dose 200 MLS/HR; Start 01/18/19 at 14:00 Diagnostic Test (Pha) (Accu-Chek) 1 ea 02 XX Last administered on 01/19/19 01:54; Admin Dose 1 EA; Start 01/19/19 at 02:00 Sodium Hypochlorite (Dakins Diluted (1/40)) 1 applic DAILY TP Last administered on 01/25/19 08:25; Admin Dose 1 APPLIC; Start 01/19/19 at 09:00 Insulin Aspart (Novolog Insulin Pen) NOVOLOG *MILD* ALGORITHM WITH MEALS BEDTIME SC ; Start 01/19/19 at 07:35 Apixaban (Eliquis) 2.5 mg BID PO Last administered on 01/25/19 08:25; Admin Dose 2.5 MG; Start 01/19/19 at 21:00 Morphine Sulfate (morphine) 0.5 mg Q4H PRN IV .SEVERE PAIN 7-10; Start 01/23/19 at 16:00 Alteplase, Recombinant (Cathflo (Activase)) 2 mg MAY REPEAT X1 PRN CATHETER IF CATHETER REMAINS OCCULUDED Last administered on 01/24/19 15:09; Admin Dose 2 MG; Start 01/24/19 at 14:30 Calcium Gluconate 1 gm/Dextrose 110 ml @ 110 mls/hr ONCE ONCE IVPB ; Start 01/25/19 at 12:00; Stop 01/25/19 at 12:59 MARTÍNEZ DUARTE NP Jan 25, 2019 11:45
[2019-01-25] MEDS ORDERED: CALCIUM GLUCONATE 10% 1 GM in DEXTROSE 5% 100 ML IVPB ONE (12:00)
[2019-01-25] MEDS: ERTAPENEM SODIUM 0.5 GM in SOD CHLORIDE 0.9% 100 ML IVPB SCH (14:23)
[2019-01-25 14:25] VITALS: BP 96/56; PULSE 93; RESP 18
[2019-01-25 19:05] VITALS: BP 99/58; PULSE 89; RESP 18
[2019-01-25] MEDS: ATORVASTATIN 10 MG TAB PO SCH (21:23)
[2019-01-26 02:00] VITALS: BP 101/58; PULSE 93; RESP 20
[2019-01-26] MEDS: ACCU-CHEK XX SCH (02:00)
[2019-01-26 07:44] VITALS: BP 96/51; PULSE 98; RESP 20
[2019-01-26] MEDS: INSULIN ASPART [NOVOLOG] 3 ML PEN SC SCH ×3 (09:09→17:55)
[2019-01-26] MEDS: APIXABAN 5 MG TABLET PO SCH (09:11)
[2019-01-26] MEDS: PANTOPRAZOLE (EC) 40 MG TAB PO SCH (09:11)
[2019-01-26] MEDS: GABAPENTIN 300 MG CAP PO SCH ×2 (09:11→12:43)
[2019-01-26] MEDS: CHOLECALCIFEROL 1,000 UNIT TAB PO SCH (09:11)
[2019-01-26] MEDS: DAKINS 0.0125%(1/40) 473 ML SOLUTION TP SCH (09:12)
--- NOTE | 2019-01-26 12:54 | PDOCDIS ---
Discharge Instructions CONDITION [id number] Patient Condition: [id number] Stable HOME CARE INSTRUCTIONS: [id number] Diet Instructions: [id number] Carb Controlled Diet ACTIVITY: [id number] Activity Restrictions: [id number] Slowly Increase Activity Rest between Activity Avoid heavy lifting Do not Drive Avoid Heavy Housework NOHEMY JESSICA Jan 26, 2019 12:54
--- NOTE | 2019-01-26 12:59 | DS ---
Date/Time of Note Date/Time of Note DATE: 01/26/19 TIME: 12:54 Discharge Summary Admission/Discharge Info Admit Date/Time Jan 18, 2019 at 06:06 Discharge Date/Time Discharge Diagnosis #Delirium and hallucinations-slowly improving, secondary ertapenem and Levaquin antibiotics which can cause hallucinations and AMS as side effects (she had also been on these antibiotics as an outpatient prior to this admission for osteomyelitis via PICC line at home). Levaquin was stopped by ID team a few days ago with, again, improvement in the symptoms # Severe PAD- h/o revascularization in the past - status post right iliofemoral endarterectomy 01/18. 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 # Diabetes Mellitus type 2 # Chronic kidney disease- at baseline # Atrial fibrillation: Stable # HTN # Anemia of chronic disease Patient Condition: Stable Procedures DATE OF OPERATION: 01/18/2019 PREOPERATIVE DIAGNOSIS: Right foot nonhealing ulcers with ischemia. POSTOPERATIVE DIAGNOSIS: Right foot nonhealing ulcers with ischemia. PROCEDURE PERFORMED: Right iliofemoral endarterectomy. Hx of Present Illness 88 yo female with severe PAD, right foot ulcer nonhealing with osteomyelitis, diabetes type 2, CKD, A. fib, hypertension, anemia chronic disease, who was brought in by vascular surgery team and underwent right iliofemoral endarterectomy earlier today. Patient presently denies any chest pain, shortness breath, upper lower GI bleeding, nausea vomiting, fever chills. Patient was recently hospitalized here at our hospital from December 31 to January 05 for right diabetic foot ulcer with osteomyelitis and severe peripheral artery disease. Hospital Course Patient had the operation performed vascular surgery team, then continued care by their team as well as being seen by infectious disease and podiatry teams. Patient was found with some delirium and hallucinations, thought to be secondary to combination of her antibiotics which she had been on for quite some time before admission ertapenem and Levaquin. ID team recommends stopping the Levaquin antibiotic but continuing the ertapenem given the patient's history of ostium mellitus, and her hallucination and delirium symptoms slowly subsided. Her sugars were stable monitor for her diabetes and she was continued on Eliquis for atrial fibrillation. She is back to baseline status, work in physical therapy, but will need more therapy at a skilled nurse facility which she will go to later today in improved condition. See printed medicine reconciliation sheet for full list of discharge medications. Home Meds Reported Medications Hydrocodone/Acetaminophen ([place] 5-325 Tablet) 1 Each Tablet, 1 EACH PO Q6 PRN for PAIN, TAB 01/18/19 Acetaminophen* (Acetaminophen*) 500 MG Extra Strength Tablet, 1000 MG PO Q6H PRN for PAIN AND OR ELEVATED TEMP, TAB 01/18/19 Gabapentin* (Gabapentin*) 300 Mg Capsule, 300 MG PO TID, #90 CAP 01/18/19 Cholecalciferol* (Vitamin D3*) 1,000 Unit Tablet, 1000 UNIT PO DAILY, TAB 01/18/19 Meclizine Hcl* (Meclizine Hcl*) 25 Mg Tablet, 25 MG PO Q6 PRN for DIZZINESS, TAB 01/18/19 Aspirin (Low Dose Aspirin) 81 Mg Tablet.dr, 81 MG PO DAILY, #30 TAB 01/18/19 Metoprolol Tartrate* (Lopressor*) 25 Mg Tab, 25 MG PO BID, #60 TAB 01/18/19 Pravastatin Sodium* (Pravastatin Sodium*) 20 Mg Tablet, 20 MG PO HS, TAB 01/18/19 Pantoprazole* (Protonix*) 40 Mg Tablet.dr, 40 MG PO DAILY, TAB 01/18/19 Alendronate Sodium* (Fosamax*) 70 Mg Tablet, 70 MG PO EVERY MONDAY, #4 TAB 01/18/19 Primary Care Provider Not On Staff Doctor Time spent on discharge: > 30 minutes Pending Labs Laboratory Tests Test 01/25/19 17:49 01/25/19 21:23 01/26/19 04:34 01/26/19 09:08 Bedside 133 149 113 Glucose mg/dL (70-220) mg/dL (70-220) mg/dL (70-220) White Blood 7.4 Count 10^3/ul (4.8-1 0.8) Red Blood 3.33 Count 10^6/ul (4.20- 5.40) Hemoglobin 9.0 g/dl (12.0-16. 0) Hematocrit 28.9 % (37.0-47.0) Mean 86.8 Corpuscular fl (82.0-101.0 Volume ) Mean 27.0 Corpuscular pg (29.0-33.0) Hemoglobin Mean 31.1 Corpuscular g/dl (32.0-37. Hemoglobin Conc 0) ent Red Cell 13.4 Distribution % (11.5-14.5) Width Platelet Count 321 10^3/UL (140-4 15) Mean Platelet 9.1 Volume fl (7.4-10.4) Immature 0.300 Granulocytes % % (0.001-0.429 ) Neutrophils % 63.9 % (39.0-77.0) Lymphocytes % 18.2 % (15.0-51.0) Monocytes % 12.0 % (0.0-11.0) Eosinophils % 5.1 % (0.0-7.0) Basophils % 0.5 % (0.0-2.0) Nucleated Red 0.0 Blood Cells % /100WBC (0.0-0 .0) Immature 0.020 Granulocytes # 10^3/ul (0.0-0 .031) Neutrophils # 4.7 10^3/ul (1.6-7 .5) Lymphocytes # 1.4 10^3/ul (0.8-2 .9) Monocytes # 0.9 10^3/ul (0.3-0 .9) Eosinophils # 0.4 10^3/ul (0.0-0 .5) Basophils # 0.0 10^3/ul (0.0-0 .1) Nucleated Red 0.0 Blood Cells # 10^3/ul (0.0-0 .0) Sodium Level 139 mmol/L (135-14 4) Potassium 5.0 Level mmol/L (3.5-5. 1) Chloride Level 108 mmol/L (97-110 ) Carbon Dioxide 26 Level mmol/L (21-31) Anion Gap 5 (5-13) Blood Urea 30 Nitrogen mg/dl (7-20) Creatinine 1.42 mg/dl (0.44-1. 00) Est Glomerular mL/min (>60) Filtrat Rate mL/min Glucose Level 100 mg/dl (70-220) Calcium Level 8.4 mg/dl (8.4-10. 2) Test 01/26/19 12:42 Bedside 114 Glucose mg/dL (70-220) NOHEMY JESSICA Jan 26, 2019 12:59
[2019-01-26] MEDS: ERTAPENEM SODIUM 0.5 GM in SOD CHLORIDE 0.9% 100 ML IVPB SCH (13:54)
[2019-01-26 15:53] VITALS: BP 109/63; PULSE 96; RESP 20
--- NOTE | 2019-01-26 15:59 | CONS ---
[facility] Name: Mary Brown Unit Number: [id number] Date of : 1930 Patient Status: Admitted Inpatient Attending Doctor: Nohemy Jessica Edit: JAQUELINE JACKSON M.D. 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 MRI on 12/31/2018 showed mild bone marrow edema in R 4th toe proximal phalanx which could represent early OM or nonspecific stress reaction. Moderate soft tissue edema without evidence of abscess, suggesting cellulitis. The wound culture on 12/31/2018 grew Enterobacter, Corynebacteria and Stenotrophomonas - severe PAD - s/p R iliofemoral endarterectomy 01/18/2019 - h/o revascularization in the past - T2DM - Hgb A1c 6.8% - CKD - Atrial fib - HR stable - HTN - Mild , mild AR/MR, and mild-mod TR - ACD - mental status change, hallucinations- improved; we suspect levofloxacin (01/18/2019-01/20/2019) caused mental status change and hallucinations, and so stopped it - Allergy to PCN and levofloxacin Recommendations: - continue ertapenem (initially started as meropenem 01/02/2019-); plan for is to complete 6 week course of antibiotic through 02/13/2019 (order placed) - continue local wound care Management d/w patient's multiple family members at bedside including her son and daughter, RHODA Smith, and with Dr. Jackson Consultation Date/Type/Reason Admit Date/Time Jan 18, 2019 at 06:06 Initial Consult Date 01/18/19 Type of Consult Infectious Disease Requesting Provider: NOHEMY JESSICA Date/Time of Note DATE: 01/26/19 TIME: 15:57 24 HR Interval Summary Free Text/Dictation DC planning for [facility] today. Pt denies pain. Ate breakfast well. No acute issues per d/w nursing. Exam/Review of Systems Exam Vitals Vital Signs Date Temp Pulse Resp B/P (MAP) Pulse Ox O2 O2 Flow FiO2 Time Delivery Rate 01/26/19 98.3 98 20 96/51 (66) 96 07:44 01/26/19 Nasal 2.0 02:00 Cannula Intake and Output 01/25/19 01/25/19 01/26/19 1515:00 23:00 07:00 IntakeIntake Total 1010 ml 300 ml OutputOutput Total 2 ml BalanceBalance 1008 ml 300 ml Exam Constitutional: alert, well developed, other (frail appearing) Psych: no complaints Head: normocephalic, atraumatic Eyes: nl lids ENMT: nl external ears & nose, nl nasal mucosa & septum, mucosa pink and moist, other (no thrush; upper dentures in place) Neck: other (no swelling) Respiratory: clear to auscultation, normal air movement, other (on O2 via NC at 2L) Cardiovascular: irregular rhythm, nl pulses, systolic murmur Gastrointestinal: soft, non-tender, bowel sounds (normoactive ) Extremities: normal pulses, other (R foot wrapped with Kerlix c/d/i; RUE PICC site is c/d/i) Neurological: nl speech, other (answers simple questions appropriately when spoken to in Azeri) Skin: nl turgor; No rash or lesions Results Result Diagram: 01/26/19 0434 01/26/19 0434 Results 24hrs Laboratory Tests Test 01/25/19 17:49 01/25/19 21:23 01/26/19 04:34 01/26/19 09:08 Bedside Glucose 133 149 113 White Blood Count 7.4 Red Blood Count 3.33 L Hemoglobin 9.0 L Hematocrit 28.9 L Mean Corpuscular Volume 86.8 Mean Corpuscular 27.0 L Hemoglobin Mean Corpuscular 31.1 L Hemoglobin Concent Red Cell Distribution 13.4 Width Platelet Count 321 Mean Platelet Volume 9.1 Immature Granulocytes % 0.300 Neutrophils % 63.9 Lymphocytes % 18.2 Monocytes % 12.0 H Eosinophils % 5.1 Basophils % 0.5 Nucleated Red Blood 0.0 Cells % Immature Granulocytes # 0.020 Neutrophils # 4.7 Lymphocytes # 1.4 Monocytes # 0.9 Eosinophils # 0.4 Basophils # 0.0 Nucleated Red Blood 0.0 Cells # Sodium Level 139 Potassium Level 5.0 Chloride Level 108 Carbon Dioxide Level 26 Anion Gap 5 Blood Urea Nitrogen 30 H Creatinine 1.42 H Est Glomerular Filtrat Rate mL/min Glucose Level 100 Calcium Level 8.4 Test 01/26/19 12:42 Bedside Glucose 114 Medications Medication Current Medications IV Flush (NS 3 ml) 3 ml PER PROTOCOL IV ; Start 01/18/19 at 12:00 Ondansetron HCl (Zofran Inj) 4 mg Q6H PRN IV NAUSEA/VOMITING; Start 01/18/19 at 12:00 Acetaminophen (Tylenol Tab) 650 mg Q6H PRN PO .PAIN 1-3 OR TEMP Last administered on 01/24/19at 22:17; Admin Dose 650 MG; Start 01/18/19 at 12:00 Acetaminophen/ Hydrocodone Bitart ([place] (5/325)) 1 tab Q6H PRN PO .MOD PAIN 4- 6 Last administered on 01/19/19at 00:47; Admin Dose 1 TAB; Start 01/18/19 at 12:00 Docusate Sodium (Colace) 100 mg Q12H PRN PO .CONSTIPATION; Start 01/18/19 at 1 2:00 Magnesium Hydroxide (Milk Of Mag) 30 ml DAILY PRN PO .CONSTIPATION; Start 01/18/19 at 12:00 Albuterol/ Ipratropium (Duoneb) 3 ml Q4H RESP THERAPY PRN HHN SHORTNESS OF BREATH; Start 01/18/19 at 12:00 Hydralazine HCl (Apresoline) 10 mg Q6H PRN IV SBP GREATER THAN 180; Start 01/18/19 at 12:00 Nitroglycerin (Nitroglycerin (Sl Tab) 0.4 Mg) 1 tab Q5M PRN SL ANGINA; Start 01/18/19 at 12:00 Cholecalciferol (Vitamin D) 1,000 unit DAILY PO Last administered on 01/26/19at 09:11; Admin Dose 1,000 UNIT; Start 01/19/19 at 09:00 Gabapentin (Neurontin) 300 mg TID PO Last administered on 01/26/19 12:43; Admin Dose 300 MG; Start 01/18/19 at 13:00 Meclizine HCl (Antivert) 25 mg Q6H PRN PO DIZZINESS; Start 01/18/19 at 12:00 Pantoprazole (Protonix Tab) 40 mg DAILY PO Last administered on 01/26/19 09:11; Admin Dose 40 MG; Start 01/19/19 at 09:00 Atorvastatin Calcium (Lipitor) 10 mg HS PO Last administered on 01/25/19 21:23; Admin Dose 10 MG; Start 01/18/19 at 21:00 Ertapenem 0.5 gm/ Sodium Chloride 100 ml @ 200 mls/hr Q24H IVPB Last administered on 01/26/19 13:54; Admin Dose 200 MLS/HR; Start 01/18/19 at 14:00; Stop 02/13/19 at 23:59 Diagnostic Test (Pha) (Accu-Chek) 1 ea 02 XX Last administered on 01/19/19 01:54; Admin Dose 1 EA; Start 01/19/19 at 02:00 Sodium Hypochlorite (Dakins Diluted (40)) 1 applic DAILY TP Last administered on 01/26/19 09:12; Admin Dose 1 APPLIC; Start 01/19/19 at 09:00 Insulin Aspart (Novolog Insulin Pen) NOVOLOG *MILD* ALGORITHM WITH MEALS BEDTIME SC Last administered on 01/25/19 13:05; Admin Dose 1 UNIT; Start 01/19/19 at 07:35 Apixaban (Eliquis) 2.5 mg BID PO Last administered on 01/26/19 09:11; Admin Dose 2.5 MG; Start 01/19/19 at 21:00 Morphine Sulfate (morphine) 0.5 mg Q4H PRN IV .SEVERE PAIN 7-10; Start 01/23/19 at 16:00 Alteplase, Recombinant (Cathflo (Activase)) 2 mg MAY REPEAT X1 PRN CATHETER IF CATHETER REMAINS OCCULUDED Last administered on 01/24/19 15:09; Admin Dose 2 MG; Start 01/24/19 at 14:30 MARTÍNEZ DUARTE NP Jan 26, 2019 15:58
== END 2019-01-26 18:45 | DRG 253 ==
LOC: REC 06:06 → EDSTATUS 08:00 → ICU 14:42 → TEL 01-19 23:37 → MS1 01-22 19:00
PROVIDERS: ADMIT Surgery Vascular Surgery; ATTEND Hospitalist
PROC: 04CK0ZZ Extirpation of Matter from Right Femoral Artery, Open Approach (ICD-10-PCS; principal; 2019-01-18 08:00)
DX: E11.52 Type 2 diabetes mellitus with diabetic peripheral angiopathy with gangrene (principal); M86.8X7 Other osteomyelitis, ankle and foot; F05 Delirium due to known physiological condition; R44.3 Hallucinations, unspecified; E11.69 Type 2 diabetes mellitus with other specified complication; E11.22 Type 2 diabetes mellitus with diabetic chronic kidney disease; I12.9 Hypertensive chronic kidney disease with stage 1 through stage 4 chronic kidney disease, or unspecified chronic kidney disease; N18.9 Chronic kidney disease, unspecified; I48.91 Unspecified atrial fibrillation; E11.621 Type 2 diabetes mellitus with foot ulcer; L97.519 Non-pressure chronic ulcer of other part of right foot with unspecified severity; I25.10 Atherosclerotic heart disease of native coronary artery without angina pectoris; D63.8 Anemia in other chronic diseases classified elsewhere; E11.42 Type 2 diabetes mellitus with diabetic polyneuropathy; I08.3 Combined rheumatic disorders of mitral, aortic and tricuspid valves; Z79.82 Long term (current) use of aspirin; T36.8X5A Adverse effect of other systemic antibiotics, initial encounter; Y92.230 Patient room in hospital as the place of occurrence of the external cause
CPT/HCPCS: 36430; 71045; 80048; 80053; 80061; 80307; 81001; 82962; 83036; 83605; 83735; 84100; 84145; 84439; 84443; 85025; 85610; 85651; 85730; 86140; 86850; 86900; 86901; 86920; 87081; 87086; 88304; 88305; 88341; 88342; 97110; 97163; 97165; 97530; 97535; J0610; J1335; J1644; J1815; J2001; J2270; J2720; J3010; J7030; J7040; J7120; L1930; L2820; P9016

== ENCOUNTER 2019-02-08 15:44 | Inpatient (IN) | payer OTHER ==
[~2019-02-08] VITALS: Ht 157.5 cm; Wt 67.5 kg
[~2019-02-08 15:44] MED LIST changes: +ACET-141 PO; -ACET325T33 PO; -ALEN40TA2 PO; -APIX5TAB PO; +ASPI81TA52 PO; +GABA300C16 PO; -HYDR-3601 PO; +HYDR-4011 PO; -LACT1CAP28 PO; -LEVO500T48 PO; -LISI2.5T59 PO; +MECL-77 PO; -METO-429 PO; +METO-448 PO; +PANT40TA3 PO; -PANT40TA4 PO; +PRAV20TA63 PO; -PRAV80TA27 PO; -SAN30GM TOP; -SODI473S5 TP
[2019-02-08] MEDS ORDERED: ONDANSETRON 4 MG INJ IV PRN (21:00)
[2019-02-08] MEDS ORDERED: ERTAPENEM SODIUM 1 GM in SOD CHLORIDE 0.9% 100 ML IVPB ONE (21:00)
[2019-02-08] MEDS ORDERED: ACETAMINOPHEN 325 MG TAB PO PRN ×2 (21:00→23:00)
--- NOTE | 2019-02-08 21:00 | ERD ---
ER Documentation Chief Complaint Chief Complaint RIGHT FOOT INFECTION SENT BY MD ADAMS This is an 88-year-old female with a history of diabetes mellitus type 2 chronic kidney disease atrial fibrillation hypertension. She also has anemia of chronic disease and a right foot ulcer with nonhealing osteomyelitis. The patient had recently been discharged from the hospital stay at [facility] on January 26, 2019. The patient had been admitted at that time for treatment of osteo-mellitus of her right foot. She was subsequently discharged to a SNF facility where she has a PICC line in place and receiving IV ertapenem. This is to be completed around February 15, 2018. Today the patient had an outpatient follow-up appointment with her vascular surgeon Dr. Allen and Dr. Arriaza. Her clinical symptoms appear to worsen as there was now blackish discoloration and eschar over the right third fourth and fifth toe. The patient is complaining of pain over her right foot. She denies any fever shaking or chills. She was sent to the emergency department for admission for suspected cellulitis and gangrene. ROS All systems reviewed and are negative except as per history of present illness. Medications Home Meds Reported Medications Hydrocodone/Acetaminophen ([place] 5-325 Tablet) 1 Each Tablet, 1 EACH PO Q6 PRN for PAIN, TAB 01/18/19 Acetaminophen* (Acetaminophen*) 500 MG Extra Strength Tablet, 1000 MG PO Q6H PRN for PAIN AND OR ELEVATED TEMP, TAB 01/18/19 Gabapentin* (Gabapentin*) 300 Mg Capsule, 300 MG PO TID, #90 CAP 01/18/19 Cholecalciferol* (Vitamin D3*) 1,000 Unit Tablet, 1000 UNIT PO DAILY, TAB 01/18/19 Meclizine Hcl* (Meclizine Hcl*) 25 Mg Tablet, 25 MG PO Q6 PRN for DIZZINESS, TAB 01/18/19 Aspirin (Low Dose Aspirin) 81 Mg Tablet.dr, 81 MG PO DAILY, #30 TAB 01/18/19 Metoprolol Tartrate* (Lopressor*) 25 Mg Tab, 25 MG PO BID, #60 TAB 01/18/19 Pravastatin Sodium* (Pravastatin Sodium*) 20 Mg Tablet, 20 MG PO HS, TAB 01/18/19 Pantoprazole* (Protonix*) 40 Mg Tablet.dr, 40 MG PO DAILY, TAB 01/18/19 Alendronate Sodium* (Fosamax*) 70 Mg Tablet, 70 MG PO EVERY MONDAY, #4 TAB 01/18/19 Allergies Allergies: Coded Allergies: levofloxacin (Verified Allergy, Intermediate, hallucinations, 01/25/19) Penicillins (Verified Allergy, Unknown, rash, 01/18/19) PMhx/Soc History of Surgery: Yes (MANASA CATARACT SX, MANASA LEG ANGIOGRAM) Anesthesia Reaction: No Hx Neurological Disorder: No Hx Respiratory Disorders: No Hx Cardiac Disorders: Yes (HIGH CHOLESTEROL,PAD) Hx Psychiatric Problems: No Hx Miscellaneous Medical Probl: Yes (See note) Hx Alcohol Use: No Hx Substance Use: No Hx Tobacco Use: No Smoking Status: Never smoker Physical Exam Vitals Vital Signs Date Temp Pulse Resp B/P (MAP) Pulse Ox O2 O2 Flow FiO2 Time Delivery Rate 02/08/19 100 18 139/102 100 20:52 (114) 02/08/19 99 18 129/82 100 20:49 (98) 02/08/19 98.9 100 18 129/82 96 Room Air 19:58 (98) 02/08/19 98.9 105 18 114/80 96 Room Air 18:30 (91) 02/08/19 98.9 111 26 102/51 96 15:53 (68) Physical Exam Constitutional:Well-developed. Well-nourished. HEENT:Normocephalic. Atraumatic.Pupils were equal round reactive to light. Moist mucous membranes.No tonsillar exudates. Neck: No nuchal rigidity. No lymphadenopathy. No posterior cervical spine tenderness or step-offs. Respiratory: Not using accessory muscles of respiration.Lungs were clear to auscultation bilaterally. No rhonchi. No rales. No wheezing. Cardiovascular: Regular rate regular rhythm.No murmurs. No rubs were appreciated.S1, S2 normal. Distal pulses diminished on the right dorsalis pedis and posterior tibialis compared to the left. GI: Abdomen was soft. Nontender. Non Distended. No pulsatile abdominal masses or bruits. No rebound. No guarding. Bowel sounds were present and normal. Muscle skeletal: Patient has full range motion of the upper extremities. Patient unable to wiggle the toes on her right foot. Skin: Eschar formation on the dorsal and plantar surface of the right third fourth and fifth phalanx ease. No subcutaneous emphysema of the right foot. Pain not out of proportion to physical exam on the right foot. No purulent drainage. NEURO: Patient was alert, awake, orientated x3.no facial droop. Gait not observed as patient has difficulty walking due to her severe peripheral artery disease and osteo-mellitus. Result Diagram: 02/08/19183902/08/191839 Results 24 hrs Laboratory Tests Test 02/08/19 18:40 02/08/19 18:42 White Blood Count 9.5 10^3/ul Red Blood Count 3.58 10^6/ul Hemoglobin 9.8 g/dl Hematocrit 32.9 % Mean Corpuscular Volume 91.9 fl Mean Corpuscular Hemoglobin 27.4 pg Mean Corpuscular Hemoglobin Concent 29.8 g/dl Red Cell Distribution Width 13.5 % Platelet Count 383 10^3/UL Mean Platelet Volume 9.9 fl Immature Granulocytes % 0.300 % Neutrophils % 71.0 % Lymphocytes % 17.4 % Monocytes % 7.5 % Eosinophils % 3.0 % Basophils % 0.8 % Nucleated Red Blood Cells % 0.0 /100WBC Immature Granulocytes # 0.030 10^3/ul Neutrophils # 6.8 10^3/ul Lymphocytes # 1.7 10^3/ul Monocytes # 0.7 10^3/ul Eosinophils # 0.3 10^3/ul Basophils # 0.1 10^3/ul Nucleated Red Blood Cells # 0.0 10^3/ul Prothrombin Time 14.2 Sec Prothrombin Time Ratio 1.1 INR International Normalized Ratio 1.09 Activated Partial Thromboplast Time 32.7 Sec Sodium Level 137 mmol/L Potassium Level 4.7 mmol/L Chloride Level 105 mmol/L Carbon Dioxide Level 25 mmol/L Anion Gap 7 Blood Urea Nitrogen 33 mg/dl Creatinine 1.37 mg/dl Est Glomerular Filtrat Rate mL/min mL/min Glucose Level 224 mg/dl Calcium Level 8.5 mg/dl Total Bilirubin 0.3 mg/dl Direct Bilirubin 0.00 mg/dl Indirect Bilirubin 0.3 mg/dl Aspartate Amino Transf (AST/SGOT) 34 IU/L Alanine Aminotransferase (ALT/SGPT) 28 IU/L Alkaline Phosphatase 129 IU/L Troponin I < 0.012 ng/ml Total Protein 6.7 g/dl Albumin 3.1 g/dl Globulin 3.60 g/dl Albumin/Globulin Ratio 0.86 Amylase Level 151 U/L Lipase 166 U/L POC Venous Lactate 1.4 mmol/L Current Medications Medications Dose Sig/Miguelangel Start Time Status Last (Trade) Ordered Route PRN Stop Time Admin Dose Reason Admin Ondansetron 4 mg BRIDGE ORDER 02/08/19 HCl (Zofran PRN IV 21:00 Inj) NAUSEA/VOMITI 02/09/19 20:59 NG 650 mg ER BRIDGE 02/08/19 Acetaminophen PRN PO 21:00 (Tylenol .MILD PAIN 02/09/19 20:59 Tab) 1-3 OR TEMP Procedures/MDM The patient presented to the emergency department with a spreading erythematous superficial infection of the skin and subcutaneous tissues. My differential hugh gnosis included but was not limited to necrotizing fasciitis, lymphangitis, thrombophlebitis, deep vein thrombosis, allergic reaction, neoplasm, gout or abscess. Predisposing factors of the progressive spread of erythema, warmth, pain and tenderness was considered such as lymphedema, tinea pedis, open wounds, prior trauma or surgery, pre-existing skin lesion (furuncle), retained foreign body, injection drug use or vascular or immune compromise. The patient was placed on antibiotics which included her treatment for osteo- mellitus being ertapenem. The patient received analgesic medication. 12 Lead EKG tracing ordered and reviewed by myself showed: Irregular regular rhythm of 98 bpm and no arrhythmia. ND interval not appreciated P waves are not present. QRS duration normal. No ST segment elevation No ST segment depression. No changes consistent with acute ischemia. I spoke with Dr. Adams who kindly stated he will be consulted on the case. She will be admitted to her primary care physician Dr. Williamson. I did feel the patient was stable to go to the medical surgical floor. Patient had an elevated blood glucose of 224. There is no evidence of ketosis. This was treated with IV fluids. Departure Diagnosis: Primary Impression: Gangrene Additional Impression: Hyperglycemia without ketosis Condition: Serious NAREN VIVEROS MD Feb 08, 2019 21:00
[2019-02-08 21:56] VITALS: BP 139/91; PULSE 111; RESP 17
[2019-02-08 22:00] VITALS: Ht 157.5 cm; Wt 67.5 kg
[2019-02-08] MEDS ORDERED: morphine 2 MG INJ IV PRN (23:00)
[2019-02-09] VITALS (9 sets, daily range): BP systolic 80–139; BP diastolic 51–82; PULSE 50–114; RESP 16–20
[2019-02-09] MEDS: INSULIN ASPART [NOVOLOG] 3 ML PEN SC SCH ×4 (08:00→20:55)
[2019-02-09] MEDS ORDERED: METOPROLOL 25 MG TAB PO SCH (09:00)
[2019-02-09] MEDS: ASPIRIN 81 MG TAB PO SCH (09:50)
[2019-02-09] MEDS ORDERED: SOD CHLORIDE 0.9% 500 ML IV ONE (10:30)
[2019-02-09] MEDS ORDERED: DEXTROSE 50% 50 ML SYRINGE IV PRN ×2 (11:00)
[2019-02-09] MEDS ORDERED: GLUCOSE GEL 15 GRAM TUBE PO PRN ×2 (11:00)
[2019-02-09] MEDS ORDERED: GLUCAGON 1 MG INJ IM PRN (11:00)
[2019-02-09] MEDS ORDERED: DIGOXIN 500 MCG INJ IV ONE ×2 (11:00)
[2019-02-09] MEDS ORDERED: GLUCOSE GEL 15 GRAM TUBE BUCCAL PRN (11:00)
[2019-02-09] MEDS ORDERED: SOD CHLORIDE 0.9% 500 ML IV PRN (11:30)
[2019-02-09] MEDS ORDERED: LEVOFLOXACIN 500 MG TAB PO SCH (11:30)
[2019-02-09] MEDS: SOD CHLORIDE 0.9% 1,000 ML IV SCH (12:20)
[2019-02-09] MEDS ORDERED: DIGOXIN 500 MCG INJ IV PRN (13:00)
[2019-02-09] MEDS ORDERED: ERTAPENEM SODIUM 1 GM in SOD CHLORIDE 0.9% 100 ML IVPB SCH (13:00)
--- NOTE | 2019-02-09 14:40 | HP ---
Date/Time of Note Date/Time of Note DATE: 02/09/19 TIME: 14:07 Assessment/Plan VTE Prophylaxis Risk score (from [facility] [place]0 risk: 8 SCD applied (from [facility] [place]): No SCD contraindicated: other Pharmacological prophylaxis: other Pharm contraindication: other Lines/Catheters IV C[facility]ter Type (from [facility] PICC Line Central line still needed: Yes Urinary Cath still in place: No Assessment/Plan Assessment/Plan - right foot ulcer with nonhealing osteomyelitis. - Gangrene - admit to tele - ID- Dr Rubalcava notified - Podiatry DR Maynard notified - Hyperglycemia without ketosis - atrial fibrillation - cardio- Dr Dowling group notified - hypertension converted to hypotension now - Diabetes mellitus type 2 - glycemic control - endo consult - chronic kidney disease - Nephro consulted- Dr Giana Arana notified - anemia of chronic disease - Peripheral Artery diesease Dw Dr Maynard -plan for foot surgery on Monday. Dr Aleyda Hua regarding cardiac clearance- patient is cleared for surgery. Patient seen in collaboration with Dr Williamson. Result Diagram: 02/09/19 0432 02/09/19 0432 Results 24hrs Laboratory Tests Test 02/08/19 18:40 02/08/19 18:42 02/09/19 04:32 02/09/19 08:20 White Blood Count 9.5 # 7.5 # Red Blood Count 3.58 L 3.24 L Hemoglobin 9.8 L 8.9 L Hematocrit 32.9 L 29.8 L Mean Corpuscular 91.9 92.0 Volume Mean Corpuscular 27.4 L 27.5 L Hemoglobin Mean Corpuscular 29.8 L 29.9 L Hemoglobin Concent Red Cell 13.5 13.6 Distribution Width Platelet Count 383 329 Mean Platelet Volume 9.9 10.0 Immature 0.300 0.300 Granulocytes % Neutrophils % 71.0 65.2 Lymphocytes % 17.4 19.8 Monocytes % 7.5 8.6 Eosinophils % 3.0 5.3 Basophils % 0.8 0.8 Nucleated Red Blood 0.0 0.0 Cells % Immature 0.030 0.020 Granulocytes # Neutrophils # 6.8 4.9 Lymphocytes # 1.7 1.5 Monocytes # 0.7 0.6 Eosinophils # 0.3 0.4 Basophils # 0.1 0.1 Nucleated Red Blood 0.0 0.0 Cells # Prothrombin Time 14.2 Prothrombin Time 1.1 Ratio INR International 1.09 Normalized Ratio Activated 32.7 Partial Thromboplast Time Sodium Level 137 141 Potassium Level 4.7 4.7 Chloride Level 105 106 Carbon Dioxide Level 25 31 Anion Gap 7 4 L Blood Urea Nitrogen 33 H 32 H Creatinine 1.37 H 1.21 H Est Glomerular Filtrat Rate mL/min Glucose Level 224 H 120 # Calcium Level 8.5 8.3 L Total Bilirubin 0.3 Direct Bilirubin 0.00 Indirect Bilirubin 0.3 Aspartate Amino 34 Transf (AST/SGOT) Alanine 28 Aminotransferase (AL T/SGPT) Alkaline Phosphatase 129 H Troponin I < 0.012 Total Protein 6.7 Albumin 3.1 L Globulin 3.60 H Albumin/Globulin 0.86 Ratio Amylase Level 151 H Lipase 166 POC Venous Lactate 1.4 Hemoglobin A1c 6.5 H C-Reactive Protein 2.7 H Triglycerides Level 92 Cholesterol Level 111 LDL Cholesterol, 64 Calculated HDL Cholesterol 29 L Cholesterol/HDL 3.8 Ratio Procalcitonin Pending Bedside Glucose 96 Test 02/09/19 12:19 Bedside Glucose 119 HPI/ROS Admit Date/Time Admit Date/Time Feb 08, 2019 at 20:38 ROS This is an 88-year-old female with a history of diabetes mellitus type 2 , chronic kidney disease, atrial fibrillation hypertension, anemia of chronic disease and a right foot ulcer with nonhealing osteomyelitis. The patient had recently been discharged from the hospital stay at [facility] on January 26, 2019. The patient had been admitted at that time for treatment of osteo-mellitus of her right foot. She was subsequently discharged to a SNF facility where she has a PICC line in place and receiving IV ertapenem. This is to be completed around February 15, 2018. Today the patient had an outpatient follow-up appointment with her vascular surgeon Dr. Allen and Dr. Arriaza. Her clinical symptoms appear to worsen as th ere was now blackish discoloration and eschar over the right third fourth and fifth toe. The patient is complaining of pain over her right foot. She denies any fever shaking or chills, shortness of breath, chest pain, abdominal pain, nausea.vomitting . She was admitted under Dr Williamson for suspected cellulitis and gangrene. Patient was admitted on [facility] unit ; she became hypotensive; got transferred to [facility]. ROS All systems reviewed and are negative except as per history of present illness. Medications Home Meds Reported Medications Hydrocodone/Acetaminophen ([place] 5-325 Tablet) 1 Each Tablet, 1 EACH PO Q6 PRN for PAIN, TAB 01/18/19 Acetaminophen* (Acetaminophen*) 500 MG Extra Strength Tablet, 1000 MG PO Q6H PRN for PAIN AND OR ELEVATED TEMP, TAB 01/18/19 Gabapentin* (Gabapentin*) 300 Mg Capsule, 300 MG PO TID, #90 CAP 01/18/19 Cholecalciferol* (Vitamin D3*) 1,000 Unit Tablet, 1000 UNIT PO DAILY, TAB 01/18/19 Meclizine Hcl* (Meclizine Hcl*) 25 Mg Tablet, 25 MG PO Q6 PRN for DIZZINESS, TAB 01/18/19 Aspirin (Low Dose Aspirin) 81 Mg Tablet.dr, 81 MG PO DAILY, #30 TAB 01/18/19 Metoprolol Tartrate* (Lopressor*) 25 Mg Tab, 25 MG PO BID, #60 TAB 01/18/19 Pravastatin Sodium* (Pravastatin Sodium*) 20 Mg Tablet, 20 MG PO HS, TAB 01/18/19 Pantoprazole* (Protonix*) 40 Mg Tablet.dr, 40 MG PO DAILY, TAB 01/18/19 Alendronate Sodium* (Fosamax*) 70 Mg Tablet, 70 MG PO EVERY MONDAY, #4 TAB 01/18/19 Allergies Allergies: Coded Allergies: levofloxacin (Verified Allergy, Intermediate, hallucinations, 01/25/19) Penicillins (Verified Allergy, Unknown, rash, 01/18/19) PMhx/Soc History of Surgery: Yes (MANASA CATARACT SX, MANASA LEG ANGIOGRAM) Anesthesia Reaction: No Hx Neurological Disorder: No Hx Respiratory Disorders: No Hx Cardiac Disorders: Yes (HIGH CHOLESTEROL,PAD) Hx Psychiatric Problems: No Hx Miscellaneous Medical Probl: Yes (See note) Hx Alcohol Use: No Hx Substance Use: No Hx Tobacco Use: No Smoking Status: Never smoker Past Surgical History Past Surgical Hx:Yes (MANASA CATARACT SX, MANASA LEG ANGIOGRAM) Family History Significant Family History: no pertinent family hx Social History Alcohol Use: none Smoking Status: Never smoker Drug Use: none Family History Significant Family History: no pertinent family hx Respiratory: no complaints Cardiovascular: no complaints Gastrointestinal: no complaints Genitourinary: no complaints Musculoskeletal: bone/joint pain, restricted range of motion Skin: other Neurologic: no complaints PMH/Family/Social Past Medical History Medications Current Medications Aspirin (Aspirin) 81 mg DAILY PO Last administered on 02/09/19at 09:50; Admin Dose 81 MG; Start 02/09/19 at 09:00 Metoprolol Tartrate (Lopressor) 25 mg BID PO ; Start 02/09/19 at 09:00 Acetaminophen/ Hydrocodone Bitart ([place] (5/325)) 1 tab Q6H PRN PO MODERATE PAIN LEVEL 4-6; Start 02/08/19 at 23:00 Morphine Sulfate (morphine) 2 mg Q4H PRN IV SEVERE PAIN LEVEL 7-10; Start 02/08/19 at 23:00 Acetaminophen (Tylenol Tab) 650 mg Q6H PRN PO MILD PAIN(1-3)OR ELEVATED TEMP; Start 02/08/19 at 23:00 Insulin Aspart (Novolog Insulin Pen) NOVOLOG *MILD* ALGORITHM WITH MEALS BEDTIME SC ; Start 02/09/19 at 08:00 Sodium Chloride 1,000 ml @ 75 mls/hr [id number] IV Last administered on 02/09/19at 12:20; Admin Dose 75 MLS/HR; Start 02/09/19 at 12:00 Miscellaneous Information 1 ea NOTE XX ; Start 02/09/19 at 11:00 Glucose (Glutose) 15 gm Q15M PRN PO DECREASED GLUCOSE; Start 02/09/19 at 11:00 Glucose (Glutose) 22.5 gm Q15M PRN PO DECREASED GLUCOSE; Start 02/09/19 at 11:00 Dextrose (D50w Syringe) 25 ml Q15M PRN IV DECREASED GLUCOSE; Start 02/09/19 at 11:00 Dextrose (D50w Syringe) 50 ml Q15M PRN IV DECREASED GLUCOSE; Start 02/09/19 at 11:00 Glucagon (Glucagen) 1 mg Q15M PRN IM DECREASED GLUCOSE; Start 02/09/19 at 11:00 Glucose (Glutose) 15 gm Q15M PRN BUCCAL DECREASED GLUCOSE; Start 02/09/19 at 11:00 Ertapenem 1 gm/ Sodium Chloride 100 ml @ 200 mls/hr Q24H IVPB ; Start 02/09/19 at 13:00 Coded Allergies: levofloxacin (Verified Allergy, Intermediate, hallucinations, 01/25/19) Penicillins (Verified Allergy, Unknown, rash, 01/18/19) Past Surgical History Past Surgical Hx: other Family History Significant Family History: diabetes Social History Smoking Status: Never smoker Exam/Review of Systems Vital Signs Vitals Vital Signs Date Temp Pulse Resp B/P (MAP) Pulse Ox O2 O2 Flow FiO2 Time Delivery Rate 02/09/19 98.4 79 18 105/51 93 13:56 (69) 02/09/19 Room Air 10:02 Exam Constitutional: alert, well developed Psych: nl mood/affect Eyes: nl lids, nl sclera ENMT: nl external ears & nose Neck: non-tender Respiratory: clear to auscultation Cardiovascular: nl pulses, other (s1s2) Gastrointestinal: soft, non-tender Musculoskeletal: joint tenderness, range of motion Skin: other (Eschar formation on the dorsal and plantar surface of the right third fourth and fifth phalanx , No subcutaneous emphysema of the right foot. No purulent drainage.) LISA ESTEVEZ Feb 09, 2019 14:17
[2019-02-09] MEDS ORDERED: HYDROCODONE/APAP (5/325) TAB PO PRN (15:30)
[2019-02-09] MEDS ORDERED: ACETAMINOPHEN 500 MG TAB PO PRN (15:30)
[2019-02-09] MEDS: METOPROLOL 25 MG TAB PO SCH ×2 (15:34→20:56)
[2019-02-09] MEDS ORDERED: MECLIZINE 25 MG TAB PO PRN (16:00)
--- NOTE | 2019-02-09 16:26 | CONS ---
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 Spoke to cardiology and stated cardiac clearance for surgical procedure. Appreciate medical clearance as well. Continue with betadine dressings and offloading to right foot. Plan for surgery Monday. Consultation Date/Type/Reason Admit Date/Time Feb 08, 2019 at 20:38 Date/Time of Note DATE: 02/09/19 TIME: 16:26 Hx of Present Illness 88-year-old female with a history of diabetes mellitus type 2 , chronic kidney disease, atrial fibrillation hypertension, anemia of chronic disease and a right foot ulcer presents to the floor with the chronic right foot ulceration. Patient last month had a right lower extremity iliofemoral endarterectomy. Patient was being followed up in the wound care clinic and was noted to have dry gangrene to the 4th digit. She was also experiencing pain to the site of the ulceration with gangrene. Per nursing staff patient was noted to have hypotension and a-fib and was transferred to telemetry floors. ROS negative except for HPI Past Medical History diabetes mellitus type 2 , chronic kidney disease, atrial fibrillation hypertension, anemia of chronic disease and a right foot ulcer Home Meds Reported Medications Hydrocodone/Acetaminophen (Oklee 5-325 Tablet) 1 Each Tablet, 1 EACH PO Q6 PRN for PAIN, TAB 01/18/19 Acetaminophen* (Acetaminophen*) 500 MG Extra Strength Tablet, 1000 MG PO Q6H PRN for PAIN AND OR ELEVATED TEMP, TAB 01/18/19 Gabapentin* (Gabapentin*) 300 Mg Capsule, 300 MG PO TID, #90 CAP 01/18/19 Cholecalciferol* (Vitamin D3*) 1,000 Unit Tablet, 1000 UNIT PO DAILY, TAB 01/18/19 Meclizine Hcl* (Meclizine Hcl*) 25 Mg Tablet, 25 MG PO Q6 PRN for DIZZINESS, TAB 01/18/19 Aspirin (Low Dose Aspirin) 81 Mg Tablet.dr, 81 MG PO DAILY, #30 TAB 01/18/19 Metoprolol Tartrate* (Lopressor*) 25 Mg Tab, 25 MG PO BID, #60 TAB 01/18/19 Pravastatin Sodium* (Pravastatin Sodium*) 20 Mg Tablet, 20 MG PO HS, TAB 01/18/19 Pantoprazole* (Protonix*) 40 Mg Tablet.dr, 40 MG PO DAILY, TAB 01/18/19 Alendronate Sodium* (Fosamax*) 70 Mg Tablet, 70 MG PO EVERY MONDAY, #4 TAB 01/18/19 Medications Current Medications Aspirin (Aspirin) 81 mg DAILY PO Last administered on 02/09/19at 09:50; Admin Dose 81 MG; Start 02/09/19 at 09:00 Acetaminophen/ Hydrocodone Bitart ([place]lee (5/325)) 1 tab Q6H PRN PO MODERATE PAIN LEVEL 4-6; Start 02/08/19 at 23:00 Morphine Sulfate (morphine) 2 mg Q4H PRN IV SEVERE PAIN LEVEL 7-10; Start 02/08/19 at 23:00 Acetaminophen (Tylenol Tab) 650 mg Q6H PRN PO MILD PAIN(1-3)OR ELEVATED TEMP; Start 02/08/19 at 23:00 Insulin Aspart (Novolog Insulin Pen) NOVOLOG *MILD* ALGORITHM WITH MEALS BEDTIME SC ; Start 02/09/19 at 08:00 Sodium Chloride 1,000 ml @ 75 mls/hr [id number] IV Last administered on 02/09/19at 12:20; Admin Dose 75 MLS/HR; Start 02/09/19 at 12:00 Miscellaneous Information 1 ea NOTE XX ; Start 02/09/19 at 11:00 Glucose (Glutose) 15 gm Q15M PRN PO DECREASED GLUCOSE; Start 02/09/19 at 11:00 Glucose (Glutose) 22.5 gm Q15M PRN PO DECREASED GLUCOSE; Start 02/09/19 at 11:00 Dextrose (D50w Syringe) 25 ml Q15M PRN IV DECREASED GLUCOSE; Start 02/09/19 at 11:00 Dextrose (D50w Syringe) 50 ml Q15M PRN IV DECREASED GLUCOSE; Start 02/09/19 at 11:00 Glucagon (Glucagen) 1 mg Q15M PRN IM DECREASED GLUCOSE; Start 02/09/19 at 11:00 Glucose (Glutose) 15 gm Q15M PRN BUCCAL DECREASED GLUCOSE; Start 02/09/19 at 11:00 Ertapenem 1 gm/ Sodium Chloride 100 ml @ 200 mls/hr Q24H IVPB Last administered on 02/09/19at 15:33; Admin Dose 200 MLS/HR; Start 02/09/19 at 13:00 Metoprolol Tartrate (Lopressor) 25 mg BID PO Last administered on 02/09/19at 15:34; Admin Dose 25 MG; Start 02/09/19 at 15:30 Acetaminophen (Tylenol Tab) 1,000 mg Q6H PRN PO MILD PAIN(1-3)OR ELEVATED TEMP; Start 02/09/19 at 15:30 Cholecalciferol (Vitamin D) 1,000 unit DAILY PO ; Start 02/10/19 at 09:00 Gabapentin (Neurontin) 300 mg TID PO ; Start 02/09/19 at 21:00 Acetaminophen/ Hydrocodone Bitart ([place] (5/325)) 1 tab Q6H PRN PO PAIN; Start 02/09/19 at 15:30 Meclizine HCl (Antivert) 25 mg Q6H PRN PO DIZZINESS; Start 02/09/19 at 16:00 Pantoprazole (Protonix Tab) 40 mg DAILY@0600 PO ; Start 02/10/19 at 06:00 Atorvastatin Calcium (Lipitor) 20 mg HS PO ; Start 02/09/19 at 21:00 Allergies: Coded Allergies: levofloxacin (Verified Allergy, Intermediate, hallucinations, 01/25/19) Penicillins (Verified Allergy, Unknown, rash, 01/18/19) Past Surgical History right iliofemoral endarterectomy Family History Significant Family History: diabetes, hypertension Social History Smoking Status: Never smoker Exam/Review of Systems Exam Vitals Vital Signs Date Temp Pulse Resp B/P (MAP) Pulse Ox O2 O2 Flow FiO2 Time Delivery Rate 02/09/19 98.3 87 18 106/55 97 15:18 (72) 02/09/19 Room Air 10:02 Exam DP/PT pulses weakly palpable Noted gangrene of right 4th digit with some extension to the 3rd digit with mild skin mottling There is ecchymosis to the lateral 5th metatarsal area Right 4th webspace ulceration fibrotic 2 x 1 x 0.4cm there is some surrounding erythema, no foul odor noted Protective sensations absent Skin temperature gradient warm to warm from proximal leg to distal feet. Results Result Diagram: 02/09/192 02/09/19 0432 Results 24hrs Laboratory Tests Test 02/08/19 18:40 02/08/19 18:42 02/09/19 04:32 02/09/19 08:20 White Blood Count 9.5 # 7.5 # Red Blood Count 3.58 L 3.24 L Hemoglobin 9.8 L 8.9 L Hematocrit 32.9 L 29.8 L Mean Corpuscular 91.9 92.0 Volume Mean Corpuscular 27.4 L 27.5 L Hemoglobin Mean Corpuscular 29.8 L 29.9 L Hemoglobin Concent Red Cell 13.5 13.6 Distribution Width Platelet Count 383 329 Mean Platelet Volume 9.9 10.0 Immature 0.300 0.300 Granulocytes % Neutrophils % 71.0 65.2 Lymphocytes % 17.4 19.8 Monocytes % 7.5 8.6 Eosinophils % 3.0 5.3 Basophils % 0.8 0.8 Nucleated Red Blood 0.0 0.0 Cells % Immature 0.030 0.020 Granulocytes # Neutrophils # 6.8 4.9 Lymphocytes # 1.7 1.5 Monocytes # 0.7 0.6 Eosinophils # 0.3 0.4 Basophils # 0.1 0.1 Nucleated Red Blood 0.0 0.0 Cells # Prothrombin Time 14.2 Prothrombin Time 1.1 Ratio INR International 1.09 Normalized Ratio Activated 32.7 Partial Thromboplast Time Sodium Level 137 141 Potassium Level 4.7 4.7 Chloride Level 105 106 Carbon Dioxide Level 25 31 Anion Gap 7 4 L Blood Urea Nitrogen 33 H 32 H Creatinine 1.37 H 1.21 H Est Glomerular Filtrat Rate mL/min Glucose Level 224 H 120 # Calcium Level 8.5 8.3 L Total Bilirubin 0.3 Direct Bilirubin 0.00 Indirect Bilirubin 0.3 Aspartate Amino 34 Transf (AST/SGOT) Alanine 28 Aminotransferase (AL T/SGPT) Alkaline Phosphatase 129 H Troponin I < 0.012 Total Protein 6.7 Albumin 3.1 L Globulin 3.60 H Albumin/Globulin 0.86 Ratio Amylase Level 151 H Lipase 166 POC Venous Lactate 1.4 Hemoglobin A1c 6.5 H C-Reactive Protein 2.7 H Triglycerides Level 92 Cholesterol Level 111 LDL Cholesterol, 64 Calculated HDL Cholesterol 29 L Cholesterol/HDL 3.8 Ratio Procalcitonin Pending Bedside Glucose 96 Test 02/09/19 12:19 02/09/19 16:00 Bedside Glucose 119 Urine Color YELLOW Urine Clarity CLEAR Urine pH 6.0 Urine Specific 1.014 [place] Urine Ketones NEGATIVE Urine Nitrite NEGATIVE Urine Bilirubin NEGATIVE Urine Urobilinogen NEGATIVE Urine Leukocyte NEGATIVE Esterase Urine Microscopic 3 RBC Urine Microscopic 3 WBC Urine Squamous FEW Epithelial Cells Urine Bacteria FEW A Urine Yeast FEW A (Budding) Urine Hemoglobin NEGATIVE Urine Glucose 1+ H Urine Total Protein 3+ H Medications Medication Current Medications Aspirin (Aspirin) 81 mg DAILY PO Last administered on 02/09/19at 09:50; Admin Dose 81 MG; Start 02/09/19 at 09:00 Acetaminophen/ Hydrocodone Bitart (Oklee (5/325)) 1 tab Q6H PRN PO MODERATE PAIN LEVEL 4-6; Start 02/08/19 at 23:00 Morphine Sulfate (morphine) 2 mg Q4H PRN IV SEVERE PAIN LEVEL 7-10; Start 02/08/19 at 23:00 Acetaminophen (Tylenol Tab) 650 mg Q6H PRN PO MILD PAIN(1-3)OR ELEVATED TEMP; Start 02/08/19 at 23:00 Insulin Aspart (Novolog Insulin Pen) NOVOLOG *MILD* ALGORITHM WITH MEALS BEDTIME SC ; Start 02/09/19 at 08:00 Sodium Chloride 1,000 ml @ 75 mls/hr [id number] IV Last administered on 02/09/19at 12:20; Admin Dose 75 MLS/HR; Start 02/09/19 at 12:00 Miscellaneous Information 1 ea NOTE XX ; Start 02/09/19 at 11:00 Glucose (Glutose) 15 gm Q15M PRN PO DECREASED GLUCOSE; Start 02/09/19 at 11:00 Glucose (Glutose) 22.5 gm Q15M PRN PO DECREASED GLUCOSE; Start 02/09/19 at 11:00 Dextrose (D50w Syringe) 25 ml Q15M PRN IV DECREASED GLUCOSE; Start 02/09/19 at 11:00 Dextrose (D50w Syringe) 50 ml Q15M PRN IV DECREASED GLUCOSE; Start 02/09/19 at 11:00 Glucagon (Glucagen) 1 mg Q15M PRN IM DECREASED GLUCOSE; Start 02/09/19 at 11:00 Glucose (Glutose) 15 gm Q15M PRN BUCCAL DECREASED GLUCOSE; Start 02/09/19 at 11:00 Ertapenem 1 gm/ Sodium Chloride 100 ml @ 200 mls/hr Q24H IVPB Last administered on 02/09/19at 15:33; Admin Dose 200 MLS/HR; Start 02/09/19 at 13:00 Metoprolol Tartrate (Lopressor) 25 mg BID PO Last administered on 02/09/19at 15:34; Admin Dose 25 MG; Start 02/09/19 at 15:30 Acetaminophen (Tylenol Tab) 1,000 mg Q6H PRN PO MILD PAIN(1-3)OR ELEVATED TEMP; Start 02/09/19 at 15:30 Cholecalciferol (Vitamin D) 1,000 unit DAILY PO ; Start 02/10/19 at 09:00 Gabapentin (Neurontin) 300 mg TID PO ; Start 02/09/19 at 21:00 Acetaminophen/ Hydrocodone Bitart ([place]lee (5/325)) 1 tab Q6H PRN PO PAIN; Start 02/09/19 at 15:30 Meclizine HCl (Antivert) 25 mg Q6H PRN PO DIZZINESS; Start 02/09/19 at 16:00 Pantoprazole (Protonix Tab) 40 mg DAILY@0600 PO ; Start 02/10/19 at 06:00 Atorvastatin Calcium (Lipitor) 20 mg HS PO ; Start 02/09/19 at 21:00 JUANI BAHENA DPM Feb 09, 2019 16:26
--- NOTE | 2019-02-09 16:26 | CONS ---
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 Impression: Chronic atrial fibrillation, on beta blockers chronically. Unclear if she has recently been anticoagulated Relative hypotension, improved, likely secondary to infection Gangrene Hypertension, now with relative hypotension PVD s/p right femoral endarterectomy Recommendations: Would continue metoprolol, especially as she is going ot be undergoing surgery in the near future. Interrupting beta juan therapy will put her at increased risk of perioperative cardiovascular events, and increased risk of rebound tachycardia Hold parameters in place such that patient receives metoprolol tartrate 25 mg po bid She would benefit from a statin as she has PVD Agree with fluids to aid in blood pressure control Consultation Date/Type/Reason Admit Date/Time Feb 08, 2019 at 20:38 Date of Consultation: Feb 09, 2019 Type of Consult Cardiology Reason for Consultation atrial fibrillation and hypotension Requesting Provider: LISA ESTEVEZ Date/Time of Note DATE: 02/09/19 TIME: 16:15 Hx of Present Illness 88 yo with chronic atrial fibrillation and PVD presents with persistent right foot pain, found to have gangrene, and per chart will be undergoing right foot debridement, open 3rd and 4th toe partial ray resection, and possible amputation and allograft application. Patient is Yi speaking as is the rest of her family so a medical program specialist is used by dialing [phone] via [facility]. She has pain in her foot, about "6/10" but no chest pain, no dyspnea. When discharged from here last, she went to a SNF and has been there since, and her medication list from there reportedly does not include a NOAC, but does include aspirin, even though she was discharged on Eliquis 2.5 mg po bid. No chest pain, no dyspnea. She has been in atrial fibrillation throughout her stay, which is her baseline, but has had some transient hypotension which is now better. Constitutional: no complaints Eyes: no complaints ENT: no complaints Respiratory: no complaints Cardiovascular: no complaints Gastrointestinal: no complaints Genitourinary: no complaints Musculoskeletal: bone/joint pain (right foot) Skin: no complaints Neurologic: no complaints Endocrine: no complaints Lymphatic: no complaints Psychological: no complaints Immunologic: no complaints Past Medical History Medical History: diabetes, hypertension, renal disease, other (PVD, ost eomyelitis) Home Meds Reported Medications Hydrocodone/Acetaminophen ([place]mond 5-325 Tablet) 1 Each Tablet, 1 EACH PO Q6 PRN for PAIN, TAB 01/18/19 Acetaminophen* (Acetaminophen*) 500 MG Extra Strength Tablet, 1000 MG PO Q6H PRN for PAIN AND OR ELEVATED TEMP, TAB 01/18/19 Gabapentin* (Gabapentin*) 300 Mg Capsule, 300 MG PO TID, #90 CAP 01/18/19 Cholecalciferol* (Vitamin D3*) 1,000 Unit Tablet, 1000 UNIT PO DAILY, TAB 01/18/19 Meclizine Hcl* (Meclizine Hcl*) 25 Mg Tablet, 25 MG PO Q6 PRN for DIZZINESS, TAB 01/18/19 Aspirin (Low Dose Aspirin) 81 Mg Tablet.dr, 81 MG PO DAILY, #30 TAB 01/18/19 Metoprolol Tartrate* (Lopressor*) 25 Mg Tab, 25 MG PO BID, #60 TAB 01/18/19 Pravastatin Sodium* (Pravastatin Sodium*) 20 Mg Tablet, 20 MG PO HS, TAB 01/18/19 Pantoprazole* (Protonix*) 40 Mg Tablet.dr, 40 MG PO DAILY, TAB 01/18/19 Alendronate Sodium* (Fosamax*) 70 Mg Tablet, 70 MG PO EVERY MONDAY, #4 TAB 01/18/19 Medications Current Medications Aspirin (Aspirin) 81 mg DAILY PO Last administered on 02/09/19at 09:50; Admin Dose 81 MG; Start 02/09/19 at 09:00 Acetaminophen/ Hydrocodone Bitart (Raymond (5/325)) 1 tab Q6H PRN PO MODERATE PAIN LEVEL 4-6; Start 02/08/19 at 23:00 Morphine Sulfate (morphine) 2 mg Q4H PRN IV SEVERE PAIN LEVEL 7-10; Start 02/08/19 at 23:00 Acetaminophen (Tylenol Tab) 650 mg Q6H PRN PO MILD PAIN(1-3)OR ELEVATED TEMP; Start 02/08/19 at 23:00 Insulin Aspart (Novolog Insulin Pen) NOVOLOG *MILD* ALGORITHM WITH MEALS BEDT BEATRIZ SC ; Start 02/09/19 at 08:00 Sodium Chloride 1,000 ml @ 75 mls/hr [id number] IV Last administered on 02/09/19at 12:20; Admin Dose 75 MLS/HR; Start 02/09/19 at 12:00 Miscellaneous Information 1 ea NOTE XX ; Start 02/09/19 at 11:00 Glucose (Glutose) 15 gm Q15M PRN PO DECREASED GLUCOSE; Start 02/09/19 at 11:00 Glucose (Glutose) 22.5 gm Q15M PRN PO DECREASED GLUCOSE; Start 02/09/19 at 11:00 Dextrose (D50w Syringe) 25 ml Q15M PRN IV DECREASED GLUCOSE; Start 02/09/19 at 11:00 Dextrose (D50w Syringe) 50 ml Q15M PRN IV DECREASED GLUCOSE; Start 02/09/19 at 11:00 Glucagon (Glucagen) 1 mg Q15M PRN IM DECREASED GLUCOSE; Start 02/09/19 at 11:00 Glucose (Glutose) 15 gm Q15M PRN BUCCAL DECREASED GLUCOSE; Start 02/09/19 at 11:00 Ertapenem 1 gm/ Sodium Chloride 100 ml @ 200 mls/hr Q24H IVPB Last administered on 02/09/19at 15:33; Admin Dose 200 MLS/HR; Start 02/09/19 at 13:00 Metoprolol Tartrate (Lopressor) 25 mg BID PO Last administered on 02/09/19at 15:34; Admin Dose 25 MG; Start 02/09/19 at 15:30 Acetaminophen (Tylenol Tab) 1,000 mg Q6H PRN PO MILD PAIN(1-3)OR ELEVATED TEMP; Start 02/09/19 at 15:30 Cholecalciferol (Vitamin D) 1,000 unit DAILY PO ; Start 02/10/19 at 09:00 Gabapentin (Neurontin) 300 mg TID PO ; Start 02/09/19 at 21:00 Acetaminophen/ Hydrocodone Bitart (Raymond (5/325)) 1 tab Q6H PRN PO PAIN; Start 02/09/19 at 15:30 Meclizine HCl (Antivert) 25 mg Q6H PRN PO DIZZINESS; Start 02/09/19 at 16:00 Pantoprazole (Protonix Tab) 40 mg DAILY@0600 PO ; Start 02/10/19 at 06:00 Atorvastatin Calcium (Lipitor) 20 mg HS PO ; Start 02/09/19 at 21:00 Allergies: Coded Allergies: levofloxacin (Verified Allergy, Intermediate, hallucinations, 01/25/19) Penicillins (Verified Allergy, Unknown, rash, 01/18/19) Past Surgical History Past Surgical Hx: other (right femoral endarterectomy 01/21/19) Family History Significant Family History: no pertinent family hx Social History Smoking Status: Never smoker Exam/Review of Systems Vital Signs Vitals Vital Signs Date Temp Pulse Resp B/P (MAP) Pulse Ox O2 O2 Flow FiO2 Time Delivery Rate 02/09/19 98.3 87 18 106/55 97 15:18 (72) 02/09/19 Room Air 10:02 Exam Constitutional: alert, oriented, well developed Psych: no complaints, nl mood/affect Head: normocephalic, atraumatic Eyes: EOMI, nl lids ENMT: nl external ears & nose Neck: supple; No jvd, No bruits Respiratory: clear to auscultation Cardiovascular: irregular rhythm; No murmurs/extra sounds Gastrointestinal: soft, non-tender Musculoskeletal: other (right foot covered in bandage, pictures in chart reviewed and reveal a black 4th toe) Extremities: other (absent dp pulse on left) Neurological: nl mental status, nl speech Skin: nl turgor Labs Result Diagram: 02/09/19 0432 02/09/19 0432 Results 24hrs Laboratory Tests Test 02/08/19 18:40 02/08/19 18:42 02/09/19 04:32 02/09/19 08:20 White Blood Count 9.5 # 7.5 # Red Blood Count 3.58 L 3.24 L Hemoglobin 9.8 L 8.9 L Hematocrit 32.9 L 29.8 L Mean Corpuscular 91.9 92.0 Volume Mean Corpuscular 27.4 L 27.5 L Hemoglobin Mean Corpuscular 29.8 L 29.9 L Hemoglobin Concent Red Cell 13.5 13.6 Distribution Width Platelet Count 383 329 Mean Platelet Volume 9.9 10.0 Immature 0.300 0.300 Granulocytes % Neutrophils % 71.0 65.2 Lymphocytes % 17.4 19.8 Monocytes % 7.5 8.6 Eosinophils % 3.0 5.3 Basophils % 0.8 0.8 Nucleated Red Blood 0.0 0.0 Cells % Immature 0.030 0.020 Granulocytes # Neutrophils # 6.8 4.9 Lymphocytes # 1.7 1.5 Monocytes # 0.7 0.6 Eosinophils # 0.3 0.4 Basophils # 0.1 0.1 Nucleated Red Blood 0.0 0.0 Cells # Prothrombin Time 14.2 Prothrombin Time 1.1 Ratio INR International 1.09 Normalized Ratio Activated 32.7 Partial Thromboplast Time Sodium Level 137 141 Potassium Level 4.7 4.7 Chloride Level 105 106 Carbon Dioxide Level 25 31 Anion Gap 7 4 L Blood Urea Nitrogen 33 H 32 H Creatinine 1.37 H 1.21 H Est Glomerular Filtrat Rate mL/min Glucose Level 224 H 120 # Calcium Level 8.5 8.3 L Total Bilirubin 0.3 Direct Bilirubin 0.00 Indirect Bilirubin 0.3 Aspartate Amino 34 Transf (AST/SGOT) Alanine 28 Aminotransferase (AL T/SGPT) Alkaline Phosphatase 129 H Troponin I < 0.012 Total Protein 6.7 Albumin 3.1 L Globulin 3.60 H Albumin/Globulin 0.86 Ratio Amylase Level 151 H Lipase 166 POC Venous Lactate 1.4 Hemoglobin A1c 6.5 H C-Reactive Protein 2.7 H Triglycerides Level 92 Cholesterol Level 111 LDL Cholesterol, 64 Calculated HDL Cholesterol 29 L Cholesterol/HDL 3.8 Ratio Procalcitonin Pending Bedside Glucose 96 Test 02/09/19 12:19 02/09/19 16:00 Bedside Glucose 119 Urine Color YELLOW Urine Clarity CLEAR Urine pH 6.0 Urine Specific 1.014 [place] Urine Ketones NEGATIVE Urine Nitrite NEGATIVE Urine Bilirubin NEGATIVE Urine Urobilinogen NEGATIVE Urine Leukocyte NEGATIVE Esterase Urine Microscopic 3 RBC Urine Microscopic 3 WBC Urine Squamous FEW Epithelial Cells Urine Bacteria FEW A Urine Yeast FEW A (Budding) Urine Hemoglobin NEGATIVE Urine Glucose 1+ H Urine Total Protein 3+ H Imaging Imaging EKG shows atrial fibrillation at a rate of 98 bpm Medications Medications Current Medications Aspirin (Aspirin) 81 mg DAILY PO Last administered on 02/09/19at 09:50; Admin Dose 81 MG; Start 02/09/19 at 09:00 Acetaminophen/ Hydrocodone Bitart (Raymond (5/325)) 1 tab Q6H PRN PO MODERATE PAIN LEVEL 4-6; Start 02/08/19 at 23:00 Morphine Sulfate (morphine) 2 mg Q4H PRN IV SEVERE PAIN LEVEL 7-10; Start 02/08/19 at 23:00 Acetaminophen (Tylenol Tab) 650 mg Q6H PRN PO MILD PAIN(1-3)OR ELEVATED TEMP; Start 02/08/19 at 23:00 Insulin Aspart (Novolog Insulin Pen) NOVOLOG *MILD* ALGORITHM WITH MEALS BEDTIME SC ; Start 02/09/19 at 08:00 Sodium Chloride 1,000 ml @ 75 mls/hr [id number] IV Last administered on 02/09/19at 12:20; Admin Dose 75 MLS/HR; Start 02/09/19 at 12:00 Miscellaneous Information 1 ea NOTE XX ; Start 02/09/19 at 11:00 Glucose (Glutose) 15 gm Q15M PRN PO DECREASED GLUCOSE; Start 02/09/19 at 11:00 Glucose (Glutose) 22.5 gm Q15M PRN PO DECREASED GLUCOSE; Start 02/09/19 at 11:00 Dextrose (D50w Syringe) 25 ml Q15M PRN IV DECREASED GLUCOSE; Start 02/09/19 at 11:00 Dextrose (D50w Syringe) 50 ml Q15M PRN IV DECREASED GLUCOSE; Start 02/09/19 at 11:00 Glucagon (Glucagen) 1 mg Q15M PRN IM DECREASED GLUCOSE; Start 02/09/19 at 11:00 Glucose (Glutose) 15 gm Q15M PRN BUCCAL DECREASED GLUCOSE; Start 02/09/19 at 11:00 Ertapenem 1 gm/ Sodium Chloride 100 ml @ 200 mls/hr Q24H IVPB Last administered on 02/09/19at 15:33; Admin Dose 200 MLS/HR; Start 02/09/19 at 13:00 Metoprolol Tartrate (Lopressor) 25 mg BID PO Last administered on 02/09/19at 15 :34; Admin Dose 25 MG; Start 02/09/19 at 15:30 Acetaminophen (Tylenol Tab) 1,000 mg Q6H PRN PO MILD PAIN(1-3)OR ELEVATED TEMP; Start 02/09/19 at 15:30 Cholecalciferol (Vitamin D) 1,000 unit DAILY PO ; Start 02/10/19 at 09:00 Gabapentin (Neurontin) 300 mg TID PO ; Start 02/09/19 at 21:00 Acetaminophen/ Hydrocodone Bitart (Raymond (5/325)) 1 tab Q6H PRN PO PAIN; Start 02/09/19 at 15:30 Meclizine HCl (Antivert) 25 mg Q6H PRN PO DIZZINESS; Start 02/09/19 at 16:00 Pantoprazole (Protonix Tab) 40 mg DAILY@0600 PO ; Start 02/10/19 at 06:00 Atorvastatin Calcium (Lipitor) 20 mg HS PO ; Start 02/09/19 at 21:00 NILTON SOTO Feb 09, 2019 16:26
[2019-02-09] MEDS ORDERED: LACTATED RINGER'S 500 ML IV ONE (17:00)
[2019-02-09] MEDS: ATORVASTATIN 20 MG TAB PO SCH (20:57)
[2019-02-09] MEDS: GABAPENTIN 300 MG CAP PO SCH (20:57)
--- NOTE | 2019-02-10 00:38 | PN ---
Date/Time of Note Date/Time of Note DATE: 02/10/19 TIME: 00:37 Assessment/Plan VTE Prophylaxis Risk score (from [facility] [place])>0 risk: 8 SCD applied (from [facility] [place]): No SCD contraindicated: other Pharmacological prophylaxis: other Pharm contraindication: other Lines/Catheters IV Catheter Type (from [facility]): PICC Line Central line still needed: Yes Urinary Cath still in place: No Assessment/Plan Assessment/Plan - right foot ulcer with nonhealing osteomyelitis. - Gangrene - ID- Dr Rubalcava - DR Maynard - Hyperglycemia without ketosis - atrial fibrillation - cardio- Dr Dowling group notified - hypertension t hypotension now - Diabetes mellitus type 2 - endo consult - ferny on chronic kidney disease - Nephro consult appreciated - anemia of chronic disease Patient seen in collaboration with Dr Williamson Result Diagram: 02/09/19 0432 02/09/19 0432 Results 24hrs Laboratory Tests Test 02/09/19 04:32 02/09/19 08:20 02/09/19 12:19 02/09/19 12:24 White Blood Count 7.5 # Red Blood Count 3.24 L Hemoglobin 8.9 L Hematocrit 29.8 L Mean Corpuscular 92.0 Volume Mean Corpuscular 27.5 L Hemoglobin Mean Corpuscular 29.9 L Hemoglobin Concent Red Cell 13.6 Distribution Width Platelet Count 329 Mean Platelet Volume 10.0 Immature 0.300 Granulocytes % Neutrophils % 65.2 Lymphocytes % 19.8 Monocytes % 8.6 Eosinophils % 5.3 Basophils % 0.8 Nucleated Red Blood 0.0 Cells % Immature 0.020 Granulocytes # Neutrophils # 4.9 Lymphocytes # 1.5 Monocytes # 0.6 Eosinophils # 0.4 Basophils # 0.1 Nucleated Red Blood 0.0 Cells # Sodium Level 141 Potassium Level 4.7 Chloride Level 106 Carbon Dioxide Level 31 Anion Gap 4 L Blood Urea Nitrogen 32 H Creatinine 1.21 H Est Glomerular Filtrat Rate mL/min Glucose Level 120 # Hemoglobin A1c 6.5 H Calcium Level 8.3 L C-Reactive Protein 2.7 H Triglycerides Level 92 Cholesterol Level 111 LDL Cholesterol, 64 Calculated HDL Cholesterol 29 L Cholesterol/HDL 3.8 Ratio Procalcitonin 0.07 Bedside Glucose 96 119 Iron Level 36 Total Iron Binding 243 Capacity Percent Iron 15 L Saturation Ferritin 118.0 Test 02/09/19 16:00 02/09/19 17:12 02/09/19 20:55 Urine Color YELLOW Urine Clarity CLEAR Urine pH 6.0 Urine Specific 1.014 [place] Urine Ketones NEGATIVE Urine Nitrite NEGATIVE Urine Bilirubin NEGATIVE Urine Urobilinogen NEGATIVE Urine Leukocyte NEGATIVE Esterase Urine Microscopic 3 RBC Urine Microscopic 3 WBC Urine Squamous FEW Epithelial Cells Urine Bacteria FEW A Urine Yeast FEW A (Budding) Urine Hemoglobin NEGATIVE Urine Glucose 1+ H Urine Total Protein 3+ H Bedside Glucose 116 138 Subjective 24 Hr Interval Summary Free Text/Dictation - right foot ulcer with nonhealing osteomyelitis. - Gangrene - ID- Dr Rubalcava follows - Podiatry DR Maynard follows - Hyperglycemia without ketosis - atrial fibrillation - cardio- Dr Hua follows - hypertension converted to hypotension now - Diabetes mellitus type 2 - glycemic control - endo consult - chronic kidney disease - Nephro- Dr Giana Arana follows - anemia of chronic disease - Peripheral Artery diesease Dw Dr Maynard -plan for foot surgery on Monday. Dr Aleyda Hua re garding cardiac clearance- patient is cleared for surgery. Patient seen in collaboration with Dr Williamson. Eyes: no complaints ENT: no complaints Respiratory: no complaints Cardiovascular: no complaints Gastrointestinal: no complaints Genitourinary: no complaints Musculoskeletal: bone/joint pain, restricted range of motion Skin: no complaints Endocrine: no complaints Psychological: nl mood/affect Immunologic: no complaints Exam/Review of Systems Exam Vitals Vital Signs Date Temp Pulse Resp B/P (MAP) Pulse Ox O2 O2 Flow FiO2 Time Delivery Rate 02/09/19 97.4 85 18 139/82 94 23:58 (101) 02/09/19 Room Air 10:02 Intake and Output 02/09/19 02/09/19 02/10/19 1515:00 23:00 07:00 IntakeIntake Total 1800 ml 900 ml BalanceBalance 1800 ml 900 ml Constitutional: alert, oriented, well developed Psych: nl mood/affect Head: normocephalic Eyes: nl lids, nl sclera ENMT: nl external ears & nose Neck: non-tender Respiratory: clear to auscultation Cardiovascular: nl pulses, irregular rhythm, other (S1S2) Gastrointestinal: soft, non-tender Musculoskeletal: joint tenderness, range of motion Neurological: other (alert/reponsive) Skin: other Lymph: nontender Results Results 24hrs Laboratory Tests Test 02/09/19 04:32 02/09/19 08:20 02/09/19 12:19 02/09/19 12:24 White Blood Count 7.5 # Red Blood Count 3.24 L Hemoglobin 8.9 L Hematocrit 29.8 L Mean Corpuscular 92.0 Volume Mean Corpuscular 27.5 L Hemoglobin Mean Corpuscular 29.9 L Hemoglobin Concent Red Cell 13.6 Distribution Width Platelet Count 329 Mean Platelet Volume 10.0 Immature 0.300 Granulocytes % Neutrophils % 65.2 Lymphocytes % 19.8 Monocytes % 8.6 Eosinophils % 5.3 Basophils % 0.8 Nucleated Red Blood 0.0 Cells % Immature 0.020 Granulocytes # Neutrophils # 4.9 Lymphocytes # 1.5 Monocytes # 0.6 Eosinophils # 0.4 Basophils # 0.1 Nucleated Red Blood 0.0 Cells # Sodium Level 141 Potassium Level 4.7 Chloride Level 106 Carbon Dioxide Level 31 Anion Gap 4 L Blood Urea Nitrogen 32 H Creatinine 1.21 H Est Glomerular Filtrat Rate mL/min Glucose Level 120 # Hemoglobin A1c 6.5 H Calcium Level 8.3 L C-Reactive Protein 2.7 H Triglycerides Level 92 Cholesterol Level 111 LDL Cholesterol, 64 Calculated HDL Cholesterol 29 L Cholesterol/HDL 3.8 Ratio Procalcitonin 0.07 Bedside Glucose 96 119 Iron Level 36 Total Iron Binding 243 Capacity Percent Iron 15 L Saturation Ferritin 118.0 Test 02/09/19 16:00 02/09/19 17:12 02/09/19 20:55 Urine Color YELLOW Urine Clarity CLEAR Urine pH 6.0 Urine Specific 1.014 [place] Urine Ketones NEGATIVE Urine Nitrite NEGATIVE Urine Bilirubin NEGATIVE Urine Urobilinogen NEGATIVE Urine Leukocyte NEGATIVE Esterase Urine Microscopic 3 RBC Urine Microscopic 3 WBC Urine Squamous FEW Epithelial Cells Urine Bacteria FEW A Urine Yeast FEW A (Budding) Urine Hemoglobin NEGATIVE Urine Glucose 1+ H Urine Total Protein 3+ H Bedside Glucose 116 138 Medications Medication Current Medications Aspirin (Aspirin) 81 mg DAILY PO Last administered on 02/09/19at 09:50; Admin Dose 81 MG; Start 02/09/19 at 09:00 Acetaminophen/ Hydrocodone Bitart ([place] (5/325)) 1 tab Q6H PRN PO MODERATE PAIN LEVEL 4-6; Start 02/08/19 at 23:00 Morphine Sulfate (morphine) 2 mg Q4H PRN IV SEVERE PAIN LEVEL 7-10; Start 02/08/19 at 23:00 Acetaminophen (Tylenol Tab) 650 mg Q6H PRN PO MILD PAIN(1-3)OR ELEVATED TEMP; Start 02/08/19 at 23:00 Insulin Aspart (Novolog Insulin Pen) NOVOLOG *MILD* ALGORITHM WITH MEALS BEDTIME SC ; Start 02/09/19 at 08:00 Sodium Chloride 1,000 ml @ 75 mls/hr [id number] IV Last administered on 02/09/19at 12:20; Admin Dose 75 MLS/HR; Start 02/09/19 at 12:00 Miscellaneous Information 1 ea NOTE XX ; Start 02/09/19 at 11:00 Glucose (Glutose) 15 gm Q15M PRN PO DECREASED GLUCOSE; Start 02/09/19 at 11:00 Glucose (Glutose) 22.5 gm Q15M PRN PO DECREASED GLUCOSE; Start 02/09/19 at 11:00 Dextrose (D50w Syringe) 25 ml Q15M PRN IV DECREASED GLUCOSE; Start 02/09/19 at 11:00 Dextrose (D50w Syringe) 50 ml Q15M PRN IV DECREASED GLUCOSE; Start 02/09/19 at 11:00 Glucagon (Glucagen) 1 mg Q15M PRN IM DECREASED GLUCOSE; Start 02/09/19 at 11:00 Glucose (Glutose) 15 gm Q15M PRN BUCCAL DECREASED GLUCOSE; Start 02/09/19 at 11:00 Ertapenem 1 gm/ Sodium Chloride 100 ml @ 200 mls/hr Q24H IVPB Last administered on 02/09/19at 15:33; Admin Dose 200 MLS/HR; Start 02/09/19 at 13:00 Metoprolol Tartrate (Lopressor) 25 mg BID PO Last administered on 02/09/19at 20:56; Admin Dose 25 MG; Start 02/09/19 at 15:30 Acetaminophen (Tylenol Tab) 1,000 mg Q6H PRN PO MILD PAIN(1-3)OR ELEVATED TEMP; Start 02/09/19 at 15:30 Cholecalciferol (Vitamin D) 1,000 unit DAILY PO ; Start 02/10/19 at 09:00 Gabapentin (Neurontin) 300 mg TID PO Last administered on 02/09/19at 20:57; Admin Dose 300 MG; Start 02/09/19 at 21:00 Acetaminophen/ Hydrocodone Bitart ([place] (5/325)) 1 tab Q6H PRN PO PAIN; Start 02/09/19 at 15:30 Meclizine HCl (Antivert) 25 mg Q6H PRN PO DIZZINESS; Start 02/09/19 at 16:00 Pantoprazole (Protonix Tab) 40 mg DAILY@0600 PO ; Start 02/10/19 at 06:00 Atorvastatin Calcium (Lipitor) 20 mg HS PO Last administered on 02/09/19at 20:57; Admin Dose 20 MG; Start 02/09/19 at 21:00 LISA ESTEVEZ Feb 10, 2019 00:38
[2019-02-10] MEDS: SOD CHLORIDE 0.9% 1,000 ML IV SCH ×2 (01:20→08:20)
[2019-02-10 04:00] VITALS: BP 123/72; PULSE 82; RESP 18
[2019-02-10] MEDS: PANTOPRAZOLE (EC) 40 MG TAB PO SCH (06:25)
--- NOTE | 2019-02-10 06:28 | CONS ---
Consultation Date/Type/Reason Admit Date/Time Feb 08, 2019 at 20:38 Date/Time of Note DATE: 02/10/19 TIME: 06:28 Past Medical History Home Meds Reported Medications Hydrocodone/Acetaminophen ([place] 5-325 Tablet) 1 Each Tablet, 1 EACH PO Q6 PRN for PAIN, TAB 01/18/19 Acetaminophen* (Acetaminophen*) 500 MG Extra Strength Tablet, 1000 MG PO Q6H PRN for PAIN AND OR ELEVATED TEMP, TAB 01/18/19 Gabapentin* (Gabapentin*) 300 Mg Capsule, 300 MG PO TID, #90 CAP 01/18/19 Cholecalciferol* (Vitamin D3*) 1,000 Unit Tablet, 1000 UNIT PO DAILY, TAB 01/18/19 Meclizine Hcl* (Meclizine Hcl*) 25 Mg Tablet, 25 MG PO Q6 PRN for DIZZINESS, TAB 01/18/19 Aspirin (Low Dose Aspirin) 81 Mg Tablet.dr, 81 MG PO DAILY, #30 TAB 01/18/19 Metoprolol Tartrate* (Lopressor*) 25 Mg Tab, 25 MG PO BID, #60 TAB 01/18/19 Pravastatin Sodium* (Pravastatin Sodium*) 20 Mg Tablet, 20 MG PO HS, TAB 01/18/19 Pantoprazole* (Protonix*) 40 Mg Tablet.dr, 40 MG PO DAILY, TAB 01/18/19 Alendronate Sodium* (Fosamax*) 70 Mg Tablet, 70 MG PO EVERY MONDAY, #4 TAB 01/18/19 Medications Current Medications Aspirin (Aspirin) 81 mg DAILY PO Last administered on 02/09/19at 09:50; Admin Dose 81 MG; Start 02/09/19 at 09:00 Acetaminophen/ Hydrocodone Bitart ([place] (5/325)) 1 tab Q6H PRN PO MODERATE PAIN LEVEL 4-6; Start 02/08/19 at 23:00 Morphine Sulfate (morphine) 2 mg Q4H PRN IV SEVERE PAIN LEVEL 7-10; Start 02/08/19 at 23:00 Acetaminophen (Tylenol Tab) 650 mg Q6H PRN PO MILD PAIN(1-3)OR ELEVATED TEMP; Start 02/08/19 at 23:00 Insulin Aspart (Novolog Insulin Pen) NOVOLOG *MILD* ALGORITHM WITH MEALS BEDTIME SC ; Start 02/09/19 at 08:00 Sodium Chloride 1,000 ml @ 75 mls/hr [id number] IV Last administered on 02/09/19at 12:20; Admin Dose 75 MLS/HR; Start 02/09/19 at 12:00 Miscellaneous Information 1 ea NOTE XX ; Start 02/09/19 at 11:00 Glucose (Glutose) 15 gm Q15M PRN PO DECREASED GLUCOSE; Start 02/09/19 at 11:00 Glucose (Glutose) 22.5 gm Q15M PRN PO DECREASED GLUCOSE; Start 02/09/19 at 11:00 Dextrose (D50w Syringe) 25 ml Q15M PRN IV DECREASED GLUCOSE; Start 02/09/19 at 11:00 Dextrose (D50w Syringe) 50 ml Q15M PRN IV DECREASED GLUCOSE; Start 02/09/19 at 11:00 Glucagon (Glucagen) 1 mg Q15M PRN IM DECREASED GLUCOSE; Start 02/09/19 at 11:00 Glucose (Glutose) 15 gm Q15M PRN BUCCAL DECREASED GLUCOSE; Start 02/09/19 at 11:00 Ertapenem 1 gm/ Sodium Chloride 100 ml @ 200 mls/hr Q24H IVPB Last administere d on 02/09/19at 15:33; Admin Dose 200 MLS/HR; Start 02/09/19 at 13:00 Metoprolol Tartrate (Lopressor) 25 mg BID PO Last administered on 02/09/19at 20:56; Admin Dose 25 MG; Start 02/09/19 at 15:30 Acetaminophen (Tylenol Tab) 1,000 mg Q6H PRN PO MILD PAIN(1-3)OR ELEVATED TEMP; Start 02/09/19 at 15:30 Cholecalciferol (Vitamin D) 1,000 unit DAILY PO ; Start 02/10/19 at 09:00 Gabapentin (Neurontin) 300 mg TID PO Last administered on 02/09/19at 20:57; Admin Dose 300 MG; Start 02/09/19 at 21:00 Acetaminophen/ Hydrocodone Bitart ([place] (5/325)) 1 tab Q6H PRN PO PAIN; Start 02/09/19 at 15:30 Meclizine HCl (Antivert) 25 mg Q6H PRN PO DIZZINESS; Start 02/09/19 at 16:00 Pantoprazole (Protonix Tab) 40 mg DAILY@0600 PO Last administered on 02/10/19at 06:25; Admin Dose 40 MG; Start 02/10/19 at 06:00 Atorvastatin Calcium (Lipitor) 20 mg HS PO Last administered on 02/09/19at 20:57; Admin Dose 20 MG; Start 02/09/19 at 21:00 Allergies: Coded Allergies: levofloxacin (Verified Allergy, Intermediate, hallucinations, 01/25/19) Penicillins (Verified Allergy, Unknown, rash, 01/18/19) Social History Smoking Status: Never smoker Exam/Review of Systems Exam Vitals Vital Signs Date Temp Pulse Resp B/P (MAP) Pulse Ox O2 O2 Flow FiO2 Time Delivery Rate 02/10/19 97.7 82 18 123/72 95 04:00 (89) 02/09/19 Room Air 10:02 Intake and Output 02/09/19 02/09/19 02/10/19 1515:00 23:00 07:00 IntakeIntake Total 1800 ml 900 ml 1400 ml BalanceBalance 1800 ml 900 ml 1400 ml Results Result Diagram: 02/10/19 0516 02/09/19 0432 Results 24hrs Laboratory Tests Test 02/09/19 08:20 02/09/19 12:19 02/09/19 12:24 02/09/19 16:00 Bedside Glucose 96 119 Iron Level 36 Total Iron Binding 243 Capacity Percent Iron 15 L Saturation Ferritin 118.0 Urine Color YELLOW Urine Clarity CLEAR Urine pH 6.0 Urine Specific 1.014 [place] Urine Ketones NEGATIVE Urine Nitrite NEGATIVE Urine Bilirubin NEGATIVE Urine Urobilinogen NEGATIVE Urine Leukocyte NEGATIVE Esterase Urine Microscopic 3 RBC Urine Microscopic 3 WBC Urine Squamous FEW Epithelial Cells Urine Bacteria FEW A Urine Yeast FEW A (Budding) Urine Hemoglobin NEGATIVE Urine Glucose 1+ H Urine Total Protein 3+ H Test 02/09/19 17:12 02/09/19 20:55 02/10/19 05:16 Bedside Glucose 116 138 White Blood Count 7.5 Red Blood Count 3.55 L Hemoglobin 9.7 L Hematocrit 33.0 L Mean Corpuscular 93.0 Volume Mean Corpuscular 27.3 L Hemoglobin Mean Corpuscular 29.4 L Hemoglobin Concent Red Cell 13.9 Distribution Width Platelet Count 388 Mean Platelet Volume 9.9 Immature 0.300 Granulocytes % Neutrophils % 57.0 Lymphocytes % 26.1 Monocytes % 9.3 Eosinophils % 6.4 Basophils % 0.9 Nucleated Red Blood 0.0 Cells % Immature 0.020 Granulocytes # Neutrophils # 4.3 Lymphocytes # 2.0 Monocytes # 0.7 Eosinophils # 0.5 Basophils # 0.1 Nucleated Red Blood 0.0 Cells # Medications Medication Current Medications Aspirin (Aspirin) 81 mg DAILY PO Last administered on 02/09/19at 09:50; Admin Dose 81 MG; Start 02/09/19 at 09:00 Acetaminophen/ Hydrocodone Bitart ([place] (5/325)) 1 tab Q6H PRN PO MODERATE PAIN LEVEL 4-6; Start 02/08/19 at 23:00 Morphine Sulfate (morphine) 2 mg Q4H PRN IV SEVERE PAIN LEVEL 7-10; Start 02/08/19 at 23:00 Acetaminophen (Tylenol Tab) 650 mg Q6H PRN PO MILD PAIN(1-3)OR ELEVATED TEMP; Start 02/08/19 at 23:00 Insulin Aspart (Novolog Insulin Pen) NOVOLOG *MILD* ALGORITHM WITH MEALS BEDTIME SC ; Start 02/09/19 at 08:00 Sodium Chloride 1,000 ml @ 75 mls/hr [id number] IV Last administered on 02/09/19at 12:20; Admin Dose 75 MLS/HR; Start 02/09/19 at 12:00 Miscellaneous Information 1 ea NOTE XX ; Start 02/09/19 at 11:00 Glucose (Glutose) 15 gm Q15M PRN PO DECREASED GLUCOSE; Start 02/09/19 at 11:00 Glucose (Glutose) 22.5 gm Q15M PRN PO DECREASED GLUCOSE; Start 02/09/19 at 11:00 Dextrose (D50w Syringe) 25 ml Q15M PRN IV DECREASED GLUCOSE; Start 02/09/19 at 11:00 Dextrose (D50w Syringe) 50 ml Q15M PRN IV DECREASED GLUCOSE; Start 02/09/19 at 11:00 Glucagon (Glucagen) 1 mg Q15M PRN IM DECREASED GLUCOSE; Start 02/09/19 at 11:00 Glucose (Glutose) 15 gm Q15M PRN BUCCAL DECREASED GLUCOSE; Start 02/09/19 at 11:00 Ertapenem 1 gm/ Sodium Chloride 100 ml @ 200 mls/hr Q24H IVPB Last administered on 02/09/19at 15:33; Admin Dose 200 MLS/HR; Start 02/09/19 at 13:00 Metoprolol Tartrate (Lopressor) 25 mg BID PO Last administered on 02/09/19at 20: 56; Admin Dose 25 MG; Start 02/09/19 at 15:30 Acetaminophen (Tylenol Tab) 1,000 mg Q6H PRN PO MILD PAIN(1-3)OR ELEVATED TEMP; Start 02/09/19 at 15:30 Cholecalciferol (Vitamin D) 1,000 unit DAILY PO ; Start 02/10/19 at 09:00 Gabapentin (Neurontin) 300 mg TID PO Last administered on 02/09/19at 20:57; Admin Dose 300 MG; Start 02/09/19 at 21:00 Acetaminophen/ Hydrocodone Bitart ([place] (5/325)) 1 tab Q6H PRN PO PAIN; Start 02/09/19 at 15:30 Meclizine HCl (Antivert) 25 mg Q6H PRN PO DIZZINESS; Start 02/09/19 at 16:00 Pantoprazole (Protonix Tab) 40 mg DAILY@0600 PO Last administered on 02/10/19at 06:25; Admin Dose 40 MG; Start 02/10/19 at 06:00 Atorvastatin Calcium (Lipitor) 20 mg HS PO Last administered on 02/09/19at 20:57; Admin Dose 20 MG; Start 02/09/19 at 21:00 GIANNI RANGEL MD Feb 10, 2019 06:28
[2019-02-10] MEDS: INSULIN ASPART [NOVOLOG] 3 ML PEN SC SCH ×4 (07:33→20:41)
[2019-02-10 07:41] VITALS: BP 132/68; PULSE 94; RESP 18
[2019-02-10] MEDS: CHOLECALCIFEROL 1,000 UNIT TAB PO SCH (08:13)
[2019-02-10] MEDS: ASPIRIN 81 MG TAB PO SCH (08:13)
[2019-02-10] MEDS: GABAPENTIN 300 MG CAP PO SCH ×3 (08:13→20:42)
[2019-02-10] MEDS: METOPROLOL 25 MG TAB PO SCH ×2 (08:14→20:42)
[2019-02-10] MEDS ORDERED: VANCOMYCIN IV PER PHARMACY XX SCH (11:30)
--- NOTE | 2019-02-10 11:30 | CONS ---
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 MRI on 12/31/2018 showed mild bone marrow edema in R 4th toe proximal phalanx which could represent early OM or nonspecific stress reaction. Moderate soft tissue edema without evidence of abscess, suggesting cellulitis. The wound culture on 12/31/2018 grew Enterobacter, Corynebacteria and Stenotrophomonas - severe PAD - s/p R iliofemoral endarterectomy 01/18/2019 - h/o revascularization in the past - T2DM - Hgb A1c 6.8% - CKD - Atrial fib - HR stable - HTN - Mild , mild AR/MR, and mild-mod TR - ACD - mental status change, hallucinations- improved; we suspect levofloxacin (01/18/2019-01/20/2019) caused mental status change and hallucinations, and so stopped it - Allergy to PCN and levofloxacin Recommendations: - deep wound cx wih surgery - f/u path margins - broaden abx to Vanco/Merrem - f/u bcxs - will continue to follow with you Consultation Date/Type/Reason Admit Date/Time Feb 08, 2019 at 20:38 Date of Consultation: Feb 10, 2019 Type of Consult ID Reason for Consultation ABX RECS Date/Time of Note DATE: 02/10/19 TIME: 11:24 Hx of Present Illness Ms. Brown is a pleasant 88 yo female known to our service from previous admit. She has a hx of DM, CKD, Anemia, right foot ulcer with OM. She was completing a course of Ertapenem through 02.15.19. She was noted to have progressive gangrenous change of R foot and has been admtted. She is scheduled for a debridement/amputation tmrw. Constitutional: no complaints, improved Eyes: no complaints ENT: no complaints Respiratory: no complaints Cardiovascular: no complaints Gastrointestinal: no complaints Musculoskeletal: other (pain foot) Skin: no complaints Neurologic: no complaints Endocrine: no complaints Lymphatic: no complaints Psychological: no complaints, nl mood/affect Past Medical History Home Meds Reported Medications Hydrocodone/Acetaminophen ([place] 5-325 Tablet) 1 Each Tablet, 1 EACH PO Q6 PRN for PAIN, TAB 01/18/19 Acetaminophen* (Acetaminophen*) 500 MG Extra Strength Tablet, 1000 MG PO Q6H PRN for PAIN AND OR ELEVATED TEMP, TAB 01/18/19 Gabapentin* (Gabapentin*) 300 Mg Capsule, 300 MG PO TID, #90 CAP 01/18/19 Cholecalciferol* (Vitamin D3*) 1,000 Unit Tablet, 1000 UNIT PO DAILY, TAB 01/18/19 Meclizine Hcl* (Meclizine Hcl*) 25 Mg Tablet, 25 MG PO Q6 PRN for DIZZINESS, TAB 01/18/19 Aspirin (Low Dose Aspirin) 81 Mg Tablet.dr, 81 MG PO DAILY, #30 TAB 01/18/19 Metoprolol Tartrate* (Lopressor*) 25 Mg Tab, 25 MG PO BID, #60 TAB 01/18/19 Pravastatin Sodium* (Pravastatin Sodium*) 20 Mg Tablet, 20 MG PO HS, TAB 01/18/19 Pantoprazole* (Protonix*) 40 Mg Tablet.dr, 40 MG PO DAILY, TAB 01/18/19 Alendronate Sodium* (Fosamax*) 70 Mg Tablet, 70 MG PO EVERY MONDAY, #4 TAB 01/18/19 Medications Current Medications Aspirin (Aspirin) 81 mg DAILY PO Last administered on 02/10/19at 08:13; Admin Dose 81 MG; Start 02/09/19 at 09:00 Acetaminophen/ Hydrocodone Bitart ([place] (5/325)) 1 tab Q6H PRN PO MODERATE PAIN LEVEL 4-6; Start 02/08/19 at 23:00 Morphine Sulfate (morphine) 2 mg Q4H PRN IV SEVERE PAIN LEVEL 7-10; Start at 23:00 Acetaminophen (Tylenol Tab) 650 mg Q6H PRN PO MILD PAIN(1-3)OR ELEVATED TEMP; Start 02/08/19 at 23:00 Insulin Aspart (Novolog Insulin Pen) NOVOLOG *MILD* ALGORITHM WITH MEALS BEDTIME SC ; Start 02/09/19 at 08:00 Sodium Chloride 1,000 ml @ 75 mls/hr [id number] IV Last administered on 02/10/19at 08:20; Admin Dose 75 MLS/HR; Start 02/09/19 at 12:00 Miscellaneous Information 1 ea NOTE XX ; Start 02/09/19 at 11:00 Glucose (Glutose) 15 gm Q15M PRN PO DECREASED GLUCOSE; Start 02/09/19 at 11:00 Glucose (Glutose) 22.5 gm Q15M PRN PO DECREASED GLUCOSE; Start 02/09/19 at 11:00 Dextrose (D50w Syringe) 25 ml Q15M PRN IV DECREASED GLUCOSE; Start 02/09/19 at 11:00 Dextrose (D50w Syringe) 50 ml Q15M PRN IV DECREASED GLUCOSE; Start 02/09/19 at 11:00 Glucagon (Glucagen) 1 mg Q15M PRN IM DECREASED GLUCOSE; Start 02/09/19 at 11:00 Glucose (Glutose) 15 gm Q15M PRN BUCCAL DECREASED GLUCOSE; Start 02/09/19 at 11:00 Metoprolol Tartrate (Lopressor) 25 mg BID PO Last administered on 02/10/19at 08:14; Admin Dose 25 MG; Start 02/09/19 at 15:30 Acetaminophen (Tylenol Tab) 1,000 mg Q6H PRN PO MILD PAIN(1-3)OR ELEVATED TEMP; Start 02/09/19 at 15:30 Cholecalciferol (Vitamin D) 1,000 unit DAILY PO Last administered on 02/10/19at 08:13; Admin Dose 1,000 UNIT; Start 02/10/19 at 09:00 Gabapentin (Neurontin) 300 mg TID PO Last administered on 02/10/19at 08:13; Admin Dose 300 MG; Start 02/09/19 at 21:00 Acetaminophen/ Hydrocodone Bitart ([place] (5/325)) 1 tab Q6H PRN PO PAIN; Start 02/09/19 at 15:30 Meclizine HCl (Antivert) 25 mg Q6H PRN PO DIZZINESS; Start 02/09/19 at 16:00 Pantoprazole (Protonix Tab) 40 mg DAILY@0600 PO Last administered on 02/10/19at 06:25; Admin Dose 40 MG; Start 02/10/19 at 06:00 Atorvastatin Calcium (Lipitor) 20 mg HS PO Last administered on 02/09/19at 20:57; Admin Dose 20 MG; Start 02/09/19 at 21:00 Meropenem/Sodium Chloride 50 ml @ 100 mls/hr Q12 IVPB ; Start 02/10/19 at 21:00; Status UNV Vancomycin HCl (Vanco Iv Per Pharmacy) VANCOMYCIN PER PHARMACY PER PROTOCOL XX ; Start 02/10/19 at 11:30; Status UNV Allergies: Coded Allergies: levofloxacin (Verified Allergy, Intermediate, hallucinations, 01/25/19) Penicillins (Verified Allergy, Unknown, rash, 01/18/19) Social History Smoking Status: Never smoker Exam/Review of Systems Exam Vitals Vital Signs Date Temp Pulse Resp B/P (MAP) Pulse Ox O2 O2 Flow FiO2 Time Delivery Rate 02/10/19 97.8 94 18 132/68 91 07:41 (89) 02/09/19 Room Air 10:02 Intake and Output 02/09/19 02/09/19 02/10/19 1414:59 22:59 06:59 IntakeIntake Total 1800 ml 900 ml 1400 ml BalanceBalance 1800 ml 900 ml 1400 ml Constitutional: alert, oriented, well developed, other (sleeping but arousable) Psych: no complaints, nl mood/affect Head: normocephalic, atraumatic Eyes: nl conjunctiva, EOMI, nl lids, nl sclera, PERRL Respiratory: clear to auscultation Cardiovascular: regular rate and rhythm, nl pulses Gastrointestinal: soft, nl liver, spleen, non-tender Extremities: other (gangrenous changes of foot noted on picture review) Results Result Diagram: 02/10/19 0516 02/10/19 0516 Results 24hrs Laboratory Tests Test 02/09/19 12:19 02/09/19 12:24 02/09/19 16:00 02/09/19 17:12 Bedside Glucose 119 116 Iron Level 36 Total Iron Binding 243 Capacity Percent Iron 15 L Saturation Ferritin 118.0 Urine Color YELLOW Urine Clarity CLEAR Urine pH 6.0 Urine Specific 1.014 [place] Urine Ketones NEGATIVE Urine Nitrite NEGATIVE Urine Bilirubin NEGATIVE Urine Urobilinogen NEGATIVE Urine Leukocyte NEGATIVE Esterase Urine Microscopic 3 RBC Urine Microscopic 3 WBC Urine Squamous FEW Epithelial Cells Urine Bacteria FEW A Urine Yeast FEW A (Budding) Urine Hemoglobin NEGATIVE Urine Glucose 1+ H Urine Total Protein 3+ H Test 02/09/19 20:55 02/10/19 05:16 02/10/19 07:24 Bedside Glucose 138 82 White Blood Count 7.5 Red Blood Count 3.55 L Hemoglobin 9.7 L Hematocrit 33.0 L Mean Corpuscular 93.0 Volume Mean Corpuscular 27.3 L Hemoglobin Mean Corpuscular 29.4 L Hemoglobin Concent Red Cell 13.9 Distribution Width Platelet Count 388 Mean Platelet Volume 9.9 Immature 0.300 Granulocytes % Neutrophils % 57.0 Lymphocytes % 26.1 Monocytes % 9.3 Eosinophils % 6.4 Basophils % 0.9 Nucleated Red Blood 0.0 Cells % Immature 0.020 Granulocytes # Neutrophils # 4.3 Lymphocytes # 2.0 Monocytes # 0.7 Eosinophils # 0.5 Basophils # 0.1 Nucleated Red Blood 0.0 Cells # Erythrocyte 80 H Sedimentation Rate Sodium Level 142 Potassium Level 5.4 H Chloride Level 107 Carbon Dioxide Level 30 Anion Gap 5 Blood Urea Nitrogen 30 H Creatinine 1.22 H Est Glomerular Filtrat Rate mL/min Glucose Level 93 Calcium Level 8.4 Triglycerides Level 122 Cholesterol Level 115 LDL Cholesterol, 61 Calculated HDL Cholesterol 30 L Cholesterol/HDL 3.8 Ratio Medications Medication Current Medications Aspirin (Aspirin) 81 mg DAILY PO Last administered on 02/10/19at 08:13; Admin Dose 81 MG; Start 02/09/19 at 09:00 Acetaminophen/ Hydrocodone Bitart ([place] (5/325)) 1 tab Q6H PRN PO MODERATE PAIN LEVEL 4-6; Start 02/08/19 at 23:00 Morphine Sulfate (morphine) 2 mg Q4H PRN IV SEVERE PAIN LEVEL 7-10; Start 02/08/19 at 23:00 Acetaminophen (Tylenol Tab) 650 mg Q6H PRN PO MILD PAIN(1-3)OR ELEVATED TEMP; Start 02/08/19 at 23:00 Insulin Aspart (Novolog Insulin Pen) NOVOLOG *MILD* ALGORITHM WITH MEALS BEDTIME SC ; Start 02/09/19 at 08:00 Sodium Chloride 1,000 ml @ 75 mls/hr [id number] IV Last administered on 02/10/19at 08:20; Admin Dose 75 MLS/HR; Start 02/09/19 at 12:00 Miscellaneous Information 1 ea NOTE XX ; Start 02/09/19 at 11:00 Glucose (Glutose) 15 gm Q15M PRN PO DECREASED GLUCOSE; Start 02/09/19 at 11:00 Glucose (Glutose) 22.5 gm Q15M PRN PO DECREASED GLUCOSE; Start 02/09/19 at 11:00 Dextrose (D50w Syringe) 25 ml Q15M PRN IV DECREASED GLUCOSE; Start 02/09/19 at 11:00 Dextrose (D50w Syringe) 50 ml Q15M PRN IV DECREASED GLUCOSE; Start 02/09/19 at 11:00 Glucagon (Glucagen) 1 mg Q15M PRN IM DECREASED GLUCOSE; Start 02/09/19 at 11:00 Glucose (Glutose) 15 gm Q15M PRN BUCCAL DECREASED GLUCOSE; Start 02/09/19 at 11:00 Metoprolol Tartrate (Lopressor) 25 mg BID PO Last administered on 02/10/19at 08:14; Admin Dose 25 MG; Start 02/09/19 at 15:30 Acetaminophen (Tylenol Tab) 1,000 mg Q6H PRN PO MILD PAIN(1-3)OR ELEVATED TEMP; Start 02/09/19 at 15:30 Cholecalciferol (Vitamin D) 1,000 unit DAILY PO Last administered on 02/10/19at 08:13; Admin Dose 1,000 UNIT; Start 02/10/19 at 09:00 Gabapentin (Neurontin) 300 mg TID PO Last administered on 02/10/19at 08:13; Admin Dose 300 MG; Start 02/09/19 at 21:00 Acetaminophen/ Hydrocodone Bitart ([place] (5/325)) 1 tab Q6H PRN PO PAIN; Start 02/09/19 at 15:30 Meclizine HCl (Antivert) 25 mg Q6H PRN PO DIZZINESS; Start 02/09/19 at 16:00 Pantoprazole (Protonix Tab) 40 mg DAILY@0600 PO Last administered on 02/10/19at 06:25; Admin Dose 40 MG; Start 02/10/19 at 06:00 Atorvastatin Calcium (Lipitor) 20 mg HS PO Last administered on 02/09/19at 20:57; Admin Dose 20 MG; Start 02/09/19 at 21:00 Meropenem/Sodium Chloride 50 ml @ 100 mls/hr Q12 IVPB ; Start 02/10/19 at 21:00; Status UNV Vancomycin HCl (Vanco Iv Per Pharmacy) VANCOMYCIN PER PHARMACY PER PROTOCOL XX ; Start 02/10/19 at 11:30; Status UNV GIANNI RANGEL MD Feb 10, 2019 11:30
--- NOTE | 2019-02-10 11:33 | CONS ---
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 She is tolerating beta blockade at her home dose. Impression: Chronic atrial fibrillation, on beta blockers chronically. Unclear if she has recently been anticoagulated Relative hypotension, resolved, likely secondary to infection Gangrene Hypertension, controlled PVD s/p right femoral endarterectomy Recommendations: She is stable for podiatry surgery, at low risk of perioperative cardiovascular events with low risk surgery Continue metoprolol at home dosing Hold parameters in place such that patient receives metoprolol tartrate 25 mg po bid She would benefit from a statin as she has PVD Consultation Date/Type/Reason Admit Date/Time Feb 08, 2019 at 20:38 Initial Consult Date 02/09/19 Type of Consult Cardiology Requesting Provider: LISA ESTEVEZ Date/Time of Note DATE: 02/10/19 TIME: 11:30 24 HR Interval Summary Free Text/Dictation She is comfortable at present, no dyspnea, no pain in legs. Exam/Review of Systems Vital Signs Vitals Vital Signs Date Temp Pulse Resp B/P (MAP) Pulse Ox O2 O2 Flow FiO2 Time Delivery Rate 02/10/19 97.8 94 18 132/68 91 07:41 (89) 02/09/19 Room Air 10:02 Intake and Output 02/09/19 02/09/19 02/10/19 1515:00 23:00 07:00 IntakeIntake Total 1800 ml 900 ml 1400 ml BalanceBalance 1800 ml 900 ml 1400 ml Exam Constitutional: alert, well developed Psych: no complaints, nl mood/affect Head: normocephalic, atraumatic Eyes: EOMI, nl lids ENMT: nl external ears & nose Neck: No jvd, No bruits Respiratory: clear to auscultation, normal air movement Cardiovascular: irregular rhythm Gastrointestinal: soft, nl liver, spleen, non-tender Extremities: No edema Neurological: nl mental status, nl speech Skin: nl turgor, other (Right foot in bandage) Labs Result Diagram: 02/10/19 0516 02/10/19 0516 Results 24hrs Laboratory Tests Test 02/09/19 12:19 02/09/19 12:24 02/09/19 16:00 02/09/19 17:12 Bedside Glucose 119 116 Iron Level 36 Total Iron Binding 243 Capacity Percent Iron 15 L Saturation Ferritin 118.0 Urine Color YELLOW Urine Clarity CLEAR Urine pH 6.0 Urine Specific 1.014 [place] Urine Ketones NEGATIVE Urine Nitrite NEGATIVE Urine Bilirubin NEGATIVE Urine Urobilinogen NEGATIVE Urine Leukocyte NEGATIVE Esterase Urine Microscopic 3 RBC Urine Microscopic 3 WBC Urine Squamous FEW Epithelial Cells Urine Bacteria FEW A Urine Yeast FEW A (Budding) Urine Hemoglobin NEGATIVE Urine Glucose 1+ H Urine Total Protein 3+ H Test 02/09/19 20:55 02/10/19 05:16 02/10/19 07:24 Bedside Glucose 138 82 White Blood Count 7.5 Red Blood Count 3.55 L Hemoglobin 9.7 L Hematocrit 33.0 L Mean Corpuscular 93.0 Volume Mean Corpuscular 27.3 L Hemoglobin Mean Corpuscular 29.4 L Hemoglobin Concent Red Cell 13.9 Distribution Width Platelet Count 388 Mean Platelet Volume 9.9 Immature 0.300 Granulocytes % Neutrophils % 57.0 Lymphocytes % 26.1 Monocytes % 9.3 Eosinophils % 6.4 Basophils % 0.9 Nucleated Red Blood 0.0 Cells % Immature 0.020 Granulocytes # Neutrophils # 4.3 Lymphocytes # 2.0 Monocytes # 0.7 Eosinophils # 0.5 Basophils # 0.1 Nucleated Red Blood 0.0 Cells # Erythrocyte 80 H Sedimentation Rate Sodium Level 142 Potassium Level 5.4 H Chloride Level 107 Carbon Dioxide Level 30 Anion Gap 5 Blood Urea Nitrogen 30 H Creatinine 1.22 H Est Glomerular Filtrat Rate mL/min Glucose Level 93 Calcium Level 8.4 Triglycerides Level 122 Cholesterol Level 115 LDL Cholesterol, 61 Calculated HDL Cholesterol 30 L Cholesterol/HDL 3.8 Ratio Imaging Imaging Telemetry reviewed, patient in afib with controlled heart rate Medications Medications Current Medications Aspirin (Aspirin) 81 mg DAILY PO Last administered on 02/10/19at 08:13; Admin Dose 81 MG; Start 02/09/19 at 09:00 Acetaminophen/ Hydrocodone Bitart ([place] (5/325)) 1 tab Q6H PRN PO MODERATE PAIN LEVEL 4-6; Start 02/08/19 at 23:00 Morphine Sulfate (morphine) 2 mg Q4H PRN IV SEVERE PAIN LEVEL 7-10; Start 02/08/19 at 23:00 Acetaminophen (Tylenol Tab) 650 mg Q6H PRN PO MILD PAIN(1-3)OR ELEVATED TEMP; Start 02/08/19 at 23:00 Insulin Aspart (Novolog Insulin Pen) NOVOLOG *MILD* ALGORITHM WITH MEALS BEDTIME SC ; Start 02/09/19 at 08:00 Sodium Chloride 1,000 ml @ 75 mls/hr [id number] IV Last administered on 02/10/19at 08:20; Admin Dose 75 MLS/HR; Start 02/09/19 at 12:00 Miscellaneous Information 1 ea NOTE XX ; Start 02/09/19 at 11:00 Glucose (Glutose) 15 gm Q15M PRN PO DECREASED GLUCOSE; Start 02/09/19 at 11:00 Glucose (Glutose) 22.5 gm Q15M PRN PO DECREASED GLUCOSE; Start 02/09/19 at 11:00 Dextrose (D50w Syringe) 25 ml Q15M PRN IV DECREASED GLUCOSE; Start 02/09/19 at 11:00 Dextrose (D50w Syringe) 50 ml Q15M PRN IV DECREASED GLUCOSE; Start 02/09/19 at 11:00 Glucagon (Glucagen) 1 mg Q15M PRN IM DECREASED GLUCOSE; Start 02/09/19 at 11:00 Glucose (Glutose) 15 gm Q15M PRN BUCCAL DECREASED GLUCOSE; Start 02/09/19 at 11:00 Metoprolol Tartrate (Lopressor) 25 mg BID PO Last administered on 02/10/19at 08:14; Admin Dose 25 MG; Start 02/09/19 at 15:30 Acetaminophen (Tylenol Tab) 1,000 mg Q6H PRN PO MILD PAIN(1-3)OR ELEVATED TEMP; Start 02/09/19 at 15:30 Cholecalciferol (Vitamin D) 1,000 unit DAILY PO Last administered on 02/10/19at 08:13; Admin Dose 1,000 UNIT; Start 02/10/19 at 09:00 Gabapentin (Neurontin) 300 mg TID PO Last administered on 02/10/19at 08:13; Admin Dose 300 MG; Start 02/09/19 at 21:00 Acetaminophen/ Hydrocodone Bitart ([place] (5/325)) 1 tab Q6H PRN PO PAIN; Start 02/09/19 at 15:30 Meclizine HCl (Antivert) 25 mg Q6H PRN PO DIZZINESS; Start 02/09/19 at 16:00 Pantoprazole (Protonix Tab) 40 mg DAILY@0600 PO Last administered on 02/10/19at 06:25; Admin Dose 40 MG; Start 02/10/19 at 06:00 Atorvastatin Calcium (Lipitor) 20 mg HS PO Last administered on 02/09/19at 20:57; Admin Dose 20 MG; Start 02/09/19 at 21:00 Meropenem/Sodium Chloride 50 ml @ 100 mls/hr Q12 IVPB ; Start 02/10/19 at 21:00; Status UNV Vancomycin HCl (Vanco Iv Per Pharmacy) VANCOMYCIN PER PHARMACY PER PROTOCOL XX ; Start 02/10/19 at 11:30; Status UNV NILTON SOTO Feb 10, 2019 11:33
[2019-02-10 12:01] VITALS: BP 127/57; PULSE 86; RESP 18
[2019-02-10] MEDS ORDERED: NA POLYST SULFON 15 GM/60 ML BTL PO ONE (12:30)
[2019-02-10] MEDS: MEROPENEM 1 GM/50ML(PMX) 50 ML IVPB SCH ×2 (12:38→20:41)
[2019-02-10] MEDS ORDERED: VANCOMYCIN 1.5 GM/NS 250 ML 250 ML IVPB SCH (13:30)
--- NOTE | 2019-02-10 13:43 | EN ---
Date/Time of Note Date/Time of Note DATE: 02/10/19 TIME: 13:40 Event Note Endocrinology Endocrinology Event Note February 10, 2019 I have been requested to consult on this charming woman with diabetes. She lives in [facility] and had lost weight. She had previously been treated with metformin but that was discontinued several months ago. Since that time she is continued with fingerstick home blood glucose monitoring in the ECF and her sugars have essentially been normal. Here in the setting of an active infection her A1c is under 7 but above 6.5. Is on no medical therapy outside of sliding scale insulin. In addition she has a modestly elevated amylase with a normal lipase. She also has modest renal insufficiency especially for week account for her age. She has peripheral vascular disease and has osteomyelitis of some digits. Is on aggressive antibiotic therapy and is being managed by podiatry, infectious disease, cardiology for clearance for surgical intervention and her primary care team. At this time I am in a full agreement with all aspects of her medical care and do not have much extra to add to what is already being done. Given the above I am going to make this a brief consult and will not interfere with her care, but I will keep an eye on her sugars so that if they do rise we will step in. Otherwise I will not be adding to the expenses for her care at this time Respectfully STEPHAN Newsome MD, MD Feb 10, 2019 13:43
[2019-02-10 16:15] VITALS: BP 111/66; PULSE 86; RESP 18
--- NOTE | 2019-02-10 19:26 | CONS ---
Assessment/Plan Assessment/Plan Assessment/Plan (Daily) 1. acute kidney injury on CKD III due to ATN from sepsis and hypotension + prerenal azotemia 2. Acute hyperkalemia due to NATY 3. H/o PVD s/p Right femoral endareterectomy 4. H/o Chronic atrial fibrillation 5. H/o HTN with currently hypotension 6. Anemia of CKD 7. H/o DM II Plan: IV abx meropenem and IV vancomycin , Reanlly dose all abx and monitor electrolytes Kayexalate 15 gram PO x 1 dose now IVF NS at 75 cc/hr Metoprolol 25 mg BID Thanks for consultation I will continue to follow up Consultation Date/Type/Reason Admit Date/Time Feb 08, 2019 at 20:38 Date of Consultation: Feb 10, 2019 Type of Consult NEPHROLOGY Reason for Consultation Hyperkalemia, acute kidney injury Requesting Provider: GONZALEZ ANAYA MD Date/Time of Note DATE: 02/10/19 TIME: 19:25 Hx of Present Illness 88 yo with chronic atrial fibrillation and PVD presents with persistent right foot pain, found to have gangrene, and per chart will be undergoing right foot debridement, open 3rd and 4th toe partial ray resection, and possible amputation and allograft application. She has been in atrial fibrillation on admission with some transient hypotension which is now better K 5.4, Cr 1.22 on admission ,Renal has been consulted for acute hyperkalemia, acute kidney injury. Subjective hx not possible: pt non-verbal Past Medical History Medical History: high cholesterol, hypertension, other (PVD, Chronic atrial fibrillation ) Home Meds Reported Medications Hydrocodone/Acetaminophen (Sunburst 5-325 Tablet) 1 Each Tablet, 1 EACH PO Q6 PRN for PAIN, TAB 01/18/19 Acetaminophen* (Acetaminophen*) 500 MG Extra Strength Tablet, 1000 MG PO Q6H PRN for PAIN AND OR ELEVATED TEMP, TAB 01/18/19 Gabapentin* (Gabapentin*) 300 Mg Capsule, 300 MG PO TID, #90 CAP 01/18/19 Cholecalciferol* (Vitamin D3*) 1,000 Unit Tablet, 1000 UNIT PO DAILY, TAB 01/18/19 Meclizine Hcl* (Meclizine Hcl*) 25 Mg Tablet, 25 MG PO Q6 PRN for DIZZINESS, TAB 01/18/19 Aspirin (Low Dose Aspirin) 81 Mg Tablet.dr, 81 MG PO DAILY, #30 TAB 01/18/19 Metoprolol Tartrate* (Lopressor*) 25 Mg Tab, 25 MG PO BID, #60 TAB 01/18/19 Pravastatin Sodium* (Pravastatin Sodium*) 20 Mg Tablet, 20 MG PO HS, TAB 01/18/19 Pantoprazole* (Protonix*) 40 Mg Tablet.dr, 40 MG PO DAILY, TAB 01/18/19 Alendronate Sodium* (Fosamax*) 70 Mg Tablet, 70 MG PO EVERY MONDAY, #4 TAB 01/18/19 Medications Current Medications Aspirin (Aspirin) 81 mg DAILY PO Last administered on 02/10/19at 08:13; Admin Dose 81 MG; Start 02/09/19 at 09:00 Acetaminophen/ Hydrocodone Bitart (Sunburst (5/325)) 1 tab Q6H PRN PO MODERATE PAIN LEVEL 4-6; Start 02/08/19 at 23:00 Morphine Sulfate (morphine) 2 mg Q4H PRN IV SEVERE PAIN LEVEL 7-10; Start 02/08/19 at 23:00 Acetaminophen (Tylenol Tab) 650 mg Q6H PRN PO MILD PAIN(1-3)OR ELEVATED TEMP; Start 02/08/19 at 23:00 Insulin Aspart (Novolog Insulin Pen) NOVOLOG *MILD* ALGORITHM WITH MEALS BEDTIME SC ; Start 02/09/19 at 08:00 Sodium Chloride 1,000 ml @ 75 mls/hr [id number] IV Last administered on 02/10/19at 08:20; Admin Dose 75 MLS/HR; Start 02/09/19 at 12:00 Miscellaneous Information 1 ea NOTE XX ; Start 02/09/19 at 11:00 Glucose (Glutose) 15 gm Q15M PRN PO DECREASED GLUCOSE; Start 02/09/19 at 11:00 Glucose (Glutose) 22.5 gm Q15M PRN PO DECREASED GLUCOSE; Start 02/09/19 at 11:00 Dextrose (D50w Syringe) 25 ml Q15M PRN IV DECREASED GLUCOSE; Start 02/09/19 at 11:00 Dextrose (D50w Syringe) 50 ml Q15M PRN IV DECREASED GLUCOSE; Start 02/09/19 at 11:00 Glucagon (Glucagen) 1 mg Q15M PRN IM DECREASED GLUCOSE; Start 02/09/19 at 11:00 Glucose (Glutose) 15 gm Q15M PRN BUCCAL DECREASED GLUCOSE; Start 02/09/19 at 11:00 Metoprolol Tartrate (Lopressor) 25 mg BID PO Last administered on 02/10/19at 08:14; Admin Dose 25 MG; Start 02/09/19 at 15:30 Acetaminophen (Tylenol Tab) 1,000 mg Q6H PRN PO MILD PAIN(1-3)OR ELEVATED TEMP; Start 02/09/19 at 15:30 Cholecalciferol (Vitamin D) 1,000 unit DAILY PO Last administered on 02/10/19at 08:13; Admin Dose 1,000 UNIT; Start 02/10/19 at 09:00 Gabapentin (Neurontin) 300 mg TID PO Last administered on 02/10/19at 08:13; Admin Dose 300 MG; Start 02/09/19 at 21:00 Acetaminophen/ Hydrocodone Bitart (Sunburst (5/325)) 1 tab Q6H PRN PO PAIN; Start 02/09/19 at 15:30 Meclizine HCl (Antivert) 25 mg Q6H PRN PO DIZZINESS; Start 02/09/19 at 16:00 Pantoprazole (Protonix Tab) 40 mg DAILY@0600 PO Last administered on 02/10/19at 06:25; Admin Dose 40 MG; Start 02/10/19 at 06:00 Atorvastatin Calcium (Lipitor) 20 mg HS PO Last administered on 02/09/19at 20:57; Admin Dose 20 MG; Start 02/09/19 at 21:00 Meropenem/Sodium Chloride 50 ml @ 100 mls/hr Q12 IVPB Last administered on 02/10/19at 12:38; Admin Dose 100 MLS/HR; Start 02/10/19 at 12:35 Vancomycin HCl (Vanco Iv Per Pharmacy) VANCOMYCIN PER PHARMACY PER PROTOCOL XX ; Start 02/10/19 at 11:30 Vancomycin/Sodium Chloride 250 ml @ 83.333 mls/ hr Q48H IVPB ; Start 02/12/19 at 12:00 Allergies: Coded Allergies: levofloxacin (Verified Allergy, Intermediate, hallucinations, 01/25/19) Penicillins (Verified Allergy, Unknown, rash, 01/18/19) Past Surgical History Past Surgical Hx: noncontributory Family History Significant Family History: no pertinent family hx Social History Alcohol Use: none Smoking Status: Never smoker Drug Use: none Exam/Review of Systems Exam Vitals Vital Signs Date Temp Pulse Resp B/P (MAP) Pulse Ox O2 O2 Flow FiO2 Time Delivery Rate 02/10/19 98.5 86 18 111/66 94 16:15 (81) 02/09/19 Room Air 10:02 Intake and Output 02/09/19 02/09/19 02/10/19 1515:00 23:00 07:00 IntakeIntake Total 1800 ml 900 ml 1400 ml BalanceBalance 1800 ml 900 ml 1400 ml Exam Constitutional: alert, oriented, well developed Respiratory: clear to auscultation Cardiovascular: irregular rhythm; Gastrointestinal: soft, non-tender Musculoskeletal: other (right foot covered in bandage, pictures in chart reviewed and reveal a black 4th toe) Extremities: other (absent dp pulse on left) Neurological: nl mental status, nl speech Results Result Diagram: 02/10/19 0516 02/10/19 0516 Results 24hrs Laboratory Tests Test 02/09/19 20:55 02/10/19 05:14 02/10/19 05:16 02/10/19 07:24 Bedside Glucose 138 82 Triglycerides Level 126 122 Cholesterol Level 110 115 LDL Cholesterol, 53 61 Calculated HDL Cholesterol 32 L 30 L Cholesterol/HDL 3.4 3.8 Ratio White Blood Count 7.5 Red Blood Count 3.55 L Hemoglobin 9.7 L Hematocrit 33.0 L Mean Corpuscular 93.0 Volume Mean Corpuscular 27.3 L Hemoglobin Mean Corpuscular 29.4 L Hemoglobin Concent Red Cell 13.9 Distribution Width Platelet Count 388 Mean Platelet Volume 9.9 Immature 0.300 Granulocytes % Neutrophils % 57.0 Lymphocytes % 26.1 Monocytes % 9.3 Eosinophils % 6.4 Basophils % 0.9 Nucleated Red Blood 0.0 Cells % Immature 0.020 Granulocytes # Neutrophils # 4.3 Lymphocytes # 2.0 Monocytes # 0.7 Eosinophils # 0.5 Basophils # 0.1 Nucleated Red Blood 0.0 Cells # Erythrocyte 80 H Sedimentation Rate Sodium Level 142 Potassium Level 5.4 H Chloride Level 107 Carbon Dioxide Level 30 Anion Gap 5 Blood Urea Nitrogen 30 H Creatinine 1.22 H Est Glomerular Filtrat Rate mL/min Glucose Level 93 Calcium Level 8.4 Test 02/10/19 11:38 02/10/19 16:49 Bedside Glucose 109 124 Medications Medication Current Medications Aspirin (Aspirin) 81 mg DAILY PO Last administered on 02/10/19at 08:13; Admin Dose 81 MG; Start 02/09/19 at 09:00 Acetaminophen/ Hydrocodone Bitart (Sunburst (5/325)) 1 tab Q6H PRN PO MODERATE PAIN LEVEL 4-6; Start 02/08/19 at 23:00 Morphine Sulfate (morphine) 2 mg Q4H PRN IV SEVERE PAIN LEVEL 7-10; Start 02/08/19 at 23:00 Acetaminophen (Tylenol Tab) 650 mg Q6H PRN PO MILD PAIN(1-3)OR ELEVATED TEMP; Start 02/08/19 at 23:00 Insulin Aspart (Novolog Insulin Pen) NOVOLOG *MILD* ALGORITHM WITH MEALS BEDTIME SC ; Start 02/09/19 at 08:00 Sodium Chloride 1,000 ml @ 75 mls/hr [id number] IV Last administered on 02/10/19at 08:20; Admin Dose 75 MLS/HR; Start 02/09/19 at 12:00 Miscellaneous Information 1 ea NOTE XX ; Start 02/09/19 at 11:00 Glucose (Glutose) 15 gm Q15M PRN PO DECREASED GLUCOSE; Start 02/09/19 at 11:00 Glucose (Glutose) 22.5 gm Q15M PRN PO DECREASED GLUCOSE; Start 02/09/19 at 11:00 Dextrose (D50w Syringe) 25 ml Q15M PRN IV DECREASED GLUCOSE; Start 02/09/19 at 11:00 Dextrose (D50w Syringe) 50 ml Q15M PRN IV DECREASED GLUCOSE; Start 02/09/19 at 11:00 Glucagon (Glucagen) 1 mg Q15M PRN IM DECREASED GLUCOSE; Start 02/09/19 at 11:00 Glucose (Glutose) 15 gm Q15M PRN BUCCAL DECREASED GLUCOSE; Start 02/09/19 at 11:00 Metoprolol Tartrate (Lopressor) 25 mg BID PO Last administered on 02/10/19at 08:14; Admin Dose 25 MG; Start 02/09/19 at 15:30 Acetaminophen (Tylenol Tab) 1,000 mg Q6H PRN PO MILD PAIN(1-3)OR ELEVATED TEMP; Start 02/09/19 at 15:30 Cholecalciferol (Vitamin D) 1,000 unit DAILY PO Last administered on 02/10/19at 08:13; Admin Dose 1,000 UNIT; Start 02/10/19 at 09:00 Gabapentin (Neurontin) 300 mg TID PO Last administered on 02/10/19at 08:13; Admin Dose 300 MG; Start 02/09/19 at 21:00 Acetaminophen/ Hydrocodone Bitart (Sunburst (5/325)) 1 tab Q6H PRN PO PAIN; Start 02/09/19 at 15:30 Meclizine HCl (Antivert) 25 mg Q6H PRN PO DIZZINESS; Start 02/09/19 at 16:00 Pantoprazole (Protonix Tab) 40 mg DAILY@0600 PO Last administered on 02/10/19at 06:25; Admin Dose 40 MG; Start 02/10/19 at 06:00 Atorvastatin Calcium (Lipitor) 20 mg HS PO Last administered on 02/09/19at 20:57; Admin Dose 20 MG; Start 02/09/19 at 21:00 Meropenem/Sodium Chloride 50 ml @ 100 mls/hr Q12 IVPB Last administered on 02/10/19at 12:38; Admin Dose 100 MLS/HR; Start 02/10/19 at 12:35 Vancomycin HCl (Vanco Iv Per Pharmacy) VANCOMYCIN PER PHARMACY PER PROTOCOL XX ; Start 02/10/19 at 11:30 Vancomycin/Sodium Chloride 250 ml @ 83.333 mls/ hr Q48H IVPB ; Start 02/12/19 at 12:00 NICOLLE TRAORE MD Feb 10, 2019 19:26
[2019-02-10 20:00] VITALS: BP 131/64; PULSE 78; RESP 18
[2019-02-10] MEDS: ATORVASTATIN 20 MG TAB PO SCH (20:42)
[2019-02-11] VITALS (17 sets, daily range): BP systolic 112–146; BP diastolic 58–81; PULSE 9–96; RESP 14–21
[2019-02-11] MEDS: SOD CHLORIDE 0.9% 1,000 ML IV SCH ×3 (04:00→20:25)
[2019-02-11] MEDS: PANTOPRAZOLE (EC) 40 MG TAB PO SCH (05:58)
[2019-02-11] MEDS: INSULIN ASPART [NOVOLOG] 3 ML PEN SC SCH ×4 (08:00→20:22)
[2019-02-11] MEDS: MEROPENEM 1 GM/50ML(PMX) 50 ML IVPB SCH ×2 (08:47→20:14)
[2019-02-11] MEDS: GABAPENTIN 300 MG CAP PO SCH ×3 (08:48→20:15)
[2019-02-11] MEDS: METOPROLOL 25 MG TAB PO SCH ×2 (08:54→20:15)
[2019-02-11] MEDS: ASPIRIN 81 MG TAB PO SCH (08:56)
[2019-02-11] MEDS: CHOLECALCIFEROL 1,000 UNIT TAB PO SCH (08:56)
--- NOTE | 2019-02-11 10:39 | PREAC ---
Date/Time of Note Date/Time of Note DATE: 02/11/19 TIME: 10:37 Anesthesia Eval and Record Evaluation Time Pre-Procedure Interview DATE: 02/11/19 TIME: 10:37 Age 88 Sex female NPO: 8 hrs (only sip H20 with pills this am) Preoperative diagnosis right foot ulcer, osteomyelitis, diabetes, PVD Planned procedure Right foot excisional debridement, open 3rd and 4th partial ray resection, possible open TMA, possible skin allograft application, possible wound VAC, possible wound closure Past Medical History Past Medical History: Includes Cardio: HTN, Dyslipidemia, Arrythmia (chronic atrial fibrillation rate controlled with beta alex, currently not on anticoagulated.), Other (mild aortic stenosis. Dr Hua ([facility]) cleared patient for surgery. PVD s/p RIGHT femoral endarterectomy, GETA uneventful. ) Endo: Diabetes (hgba1c 6.8%) Neuro: Other (hx hallucinations with levaquin, levaquin was d/cd and hallucin ations improved) Renal: NATY, CKD (NATY on CKD III) Heme: Anemia (chronic kidney disease ) Surgery & Anesthesia Issues No known issue Meds Anticoagulation: No Beta Alex within 24 hr: Yes Reported Medications Hydrocodone/Acetaminophen (Nolan 5-325 Tablet) 1 Each Tablet, 1 EACH PO Q6 PRN for PAIN, TAB 01/18/19 Acetaminophen* (Acetaminophen*) 500 MG Extra Strength Tablet, 1000 MG PO Q6H PRN for PAIN AND OR ELEVATED TEMP, TAB 01/18/19 Gabapentin* (Gabapentin*) 300 Mg Capsule, 300 MG PO TID, #90 CAP 01/18/19 Cholecalciferol* (Vitamin D3*) 1,000 Unit Tablet, 1000 UNIT PO DAILY, TAB 01/18/19 Meclizine Hcl* (Meclizine Hcl*) 25 Mg Tablet, 25 MG PO Q6 PRN for DIZZINESS, TAB 01/18/19 Aspirin (Low Dose Aspirin) 81 Mg Tablet.dr, 81 MG PO DAILY, #30 TAB 01/18/19 Metoprolol Tartrate* (Lopressor*) 25 Mg Tab, 25 MG PO BID, #60 TAB 01/18/19 Pravastatin Sodium* (Pravastatin Sodium*) 20 Mg Tablet, 20 MG PO HS, TAB 01/18/19 Pantoprazole* (Protonix*) 40 Mg Tablet.dr, 40 MG PO DAILY, TAB 01/18/19 Alendronate Sodium* (Fosamax*) 70 Mg Tablet, 70 MG PO EVERY MONDAY, #4 TAB 01/18/19 Current Medications Aspirin (Aspirin) 81 mg DAILY PO Last administered on 02/10/19at 08:13; Admin Dose 81 MG; Start 02/09/19 at 09:00 Acetaminophen/ Hydrocodone Bitart ([place]olan (5/325)) 1 tab Q6H PRN PO MODERATE PAIN LEVEL 4-6; Start 02/08/19 at 23:00 Morphine Sulfate (morphine) 2 mg Q4H PRN IV SEVERE PAIN LEVEL 7-10; Start 02/08/19 at 23:00 Acetaminophen (Tylenol Tab) 650 mg Q6H PRN PO MILD PAIN(1-3)OR ELEVATED TEMP; Start 02/08/19 at 23:00 Insulin Aspart (Novolog Insulin Pen) NOVOLOG *MILD* ALGORITHM WITH MEALS BEDTIME SC ; Start 02/09/19 at 08:00 Sodium Chloride 1,000 ml @ 75 mls/hr [id number] IV Last administered on 02/11/19at 05:00; Admin Dose 75 MLS/HR; Start 02/09/19 at 12:00 Miscellaneous Information 1 ea NOTE XX ; Start 02/09/19 at 11:00 Glucose (Glutose) 15 gm Q15M PRN PO DECREASED GLUCOSE; Start 02/09/19 at 11:00 Glucose (Glutose) 22.5 gm Q15M PRN PO DECREASED GLUCOSE; Start 02/09/19 at 11:00 Dextrose (D50w Syringe) 25 ml Q15M PRN IV DECREASED GLUCOSE; Start 02/09/19 at 11:00 Dextrose (D50w Syringe) 50 ml Q15M PRN IV DECREASED GLUCOSE; Start 02/09/19 at 11:00 Glucagon (Glucagen) 1 mg Q15M PRN IM DECREASED GLUCOSE; Start 02/09/19 at 11:00 Glucose (Glutose) 15 gm Q15M PRN BUCCAL DECREASED GLUCOSE; Start 02/09/19 at 11:00 Metoprolol Tartrate (Lopressor) 25 mg BID PO Last administered on 02/11/19at 08:54; Admin Dose 25 MG; Start 02/09/19 at 15:30 Acetaminophen (Tylenol Tab) 1,000 mg Q6H PRN PO MILD PAIN(1-3)OR ELEVATED TEMP; Start 02/09/19 at 15:30 Cholecalciferol (Vitamin D) 1,000 unit DAILY PO Last administered on 02/10/19at 08:13; Admin Dose 1,000 UNIT; Start 02/10/19 at 09:00 Gabapentin (Neurontin) 300 mg TID PO Last administered on 02/10/19at 20:42; Admin Dose 300 MG; Start 02/09/19 at 21:00 Acetaminophen/ Hydrocodone Bitart (Nolan (5/325)) 1 tab Q6H PRN PO PAIN; Start 02/09/19 at 15:30 Meclizine HCl (Antivert) 25 mg Q6H PRN PO DIZZINESS; Start 02/09/19 at 16:00 Pantoprazole (Protonix Tab) 40 mg DAILY@0600 PO Last administered on 02/10/19at 06:25; Admin Dose 40 MG; Start 02/10/19 at 06:00 Atorvastatin Calcium (Lipitor) 20 mg HS PO Last administered on 02/10/19at 20:42; Admin Dose 20 MG; Start 02/09/19 at 21:00 Meropenem/Sodium Chloride 50 ml @ 100 mls/hr Q12 IVPB Last administered on 02/11/19at 08:47; Admin Dose 100 MLS/HR; Start 02/10/19 at 12:35 Vancomycin HCl (Vanco Iv Per Pharmacy) VANCOMYCIN PER PHARMACY PER PROTOCOL XX ; Start 02/10/19 at 11:30 Vancomycin/Sodium Chloride 250 ml @ 83.333 mls/ hr Q48H IVPB ; Start 02/12/19 at 12:00 Meds reviewed: Yes Allergies Coded Allergies: levofloxacin (Verified Allergy, Intermediate, hallucinations, 01/25/19) Penicillins (Verified Allergy, Unknown, rash, 01/18/19) Allergies Reviewed: Yes Labs/Studies Labs Reviewed: Reviewed by anesthesiologist Result Diagram: 02/11/19 0516 02/11/19 0516 Laboratory Tests 02/11/19 05:16 test: N/A Studies: ECG (AFIB), 2D Echo (EF 65% mild , mild AR, mild mod TR (december 2018) ) Pre-procedure Exam Last vitals Vital Signs Date Temp Pulse Resp B/P (MAP) Pulse Ox O2 O2 Flow FiO2 Time Delivery Rate 02/11/19 97.8 83 18 127/63 96 07:05 (84) 02/09/19 Room Air 10:02 Airway: Adequate mouth opening, Adequate thyromental dist Mallampati: Mallampati II Teeth: Normal (partial dentures, told to take off before going to surgery) Lung: Normal Heart: Normal ASA Physical Status ASA physical status: 3 Emergency: None Planned Anesthetic General/MAC: MAC, TIVA Planned Pain Management Parenteral pain med, Local by surgeon Pre-operative Attestations Prior to commencing anesthesia and surgery, the patient was re-evaluated, there was verification of: *The patient's identity *The results of appropriate recent lab work and preoperative vital signs *The above evaluation not changing prior to induction *Anesthetic plan, risk benefits, alternative and complications discussed with patient/family; questions answered; patient/family understands, accepts and wishes to proceed. HANDY FUENTES Feb 11, 2019 10:39
--- NOTE | 2019-02-11 11:36 | HPN ---
Date/Time of Note Date/Time of Note DATE: 02/11/19 TIME: 11:36 Interval H&P Admission Note Pt. seen H&P reviewed: No system changes JUANI BAHENA DPM Feb 11, 2019 11:36
--- NOTE | 2019-02-11 11:55 | CONS ---
Assessment/Plan Assessment/Plan Assessment/Plan (Daily) 1. acute kidney injury on CKD III due to ATN from sepsis and hypotension + prerenal azotemia 2. Acute hyperkalemia due to NATY 3. H/o PVD s/p Right femoral endareterectomy 4. H/o Chronic atrial fibrillation 5. H/o HTN with currently hypotension 6. Anemia of CKD 7. H/o DM II Plan: IV abx meropenem and IV vancomycin , Reanlly dose all abx and monitor electrolytes BUN/Cr improved to 22/1.12 IVF NS at 75 cc/hr Metoprolol 25 mg BID will follow up Consultation Date/Type/Reason Admit Date/Time Feb 08, 2019 at 20:38 Initial Consult Date 02/10/19 Type of Consult NEPHROLOGY Requesting Provider: GONZALEZ ANAYA MD Date/Time of Note DATE: 02/11/19 TIME: 11:55 Exam/Review of Systems Exam Vitals Vital Signs Date Temp Pulse Resp B/P (MAP) Pulse Ox O2 O2 Flow FiO2 Time Delivery Rate 02/11/19 97.8 90 18 113/58 97 11:34 (76) 02/09/19 Room Air 10:02 Intake and Output 02/10/19 02/10/19 02/11/19 1515:00 23:00 07:00 IntakeIntake Total 370 ml 450 ml 1250 ml BalanceBalance 370 ml 450 ml 1250 ml Results Result Diagram: 02/11/19 0516 02/11/19 0516 Results 24hrs Laboratory Tests Test 02/10/19 16:49 02/10/19 20:40 02/11/19 05:16 02/11/19 08:27 Bedside Glucose 124 157 87 White Blood Count 7.9 Red Blood Count 3.33 L Hemoglobin 9.0 L Hematocrit 30.6 L Mean Corpuscular 91.9 Volume Mean Corpuscular 27.0 L Hemoglobin Mean Corpuscular 29.4 L Hemoglobin Concent Red Cell 13.9 Distribution Width Platelet Count 373 Mean Platelet Volume 9.8 Immature 0.400 Granulocytes % Neutrophils % 67.2 Lymphocytes % 19.2 Monocytes % 8.2 Eosinophils % 4.1 Basophils % 0.9 Nucleated Red Blood 0.0 Cells % Immature 0.030 Granulocytes # Neutrophils # 5.3 Lymphocytes # 1.5 Monocytes # 0.7 Eosinophils # 0.3 Basophils # 0.1 Nucleated Red Blood 0.0 Cells # Sodium Level 141 Potassium Level 4.7 Chloride Level 107 Carbon Dioxide Level 28 Anion Gap 6 Blood Urea Nitrogen 29 H Creatinine 1.12 H Est Glomerular Filtrat Rate mL/min Glucose Level 103 Calcium Level 8.1 L Total Bilirubin 0.3 Direct Bilirubin 0.00 Indirect Bilirubin 0.3 Aspartate Amino 30 Transf (AST/SGOT) Alanine 21 Aminotransferase (AL T/SGPT) Alkaline Phosphatase 107 Total Protein 6.1 Albumin 2.8 L Globulin 3.30 H Albumin/Globulin 0.84 Ratio Medications Medication Current Medications Aspirin (Aspirin) 81 mg DAILY PO Last administered on 02/10/19at 08:13; Admin Dose 81 MG; Start 02/09/19 at 09:00 Acetaminophen/ Hydrocodone Bitart ([place] (5/325)) 1 tab Q6H PRN PO MODERATE PAIN LEVEL 4-6; Start 02/08/19 at 23:00 Morphine Sulfate (morphine) 2 mg Q4H PRN IV SEVERE PAIN LEVEL 7-10; Start 02/08/19 at 23:00 Acetaminophen (Tylenol Tab) 650 mg Q6H PRN PO MILD PAIN(1-3)OR ELEVATED TEMP; Start 02/08/19 at 23:00 Insulin Aspart (Novolog Insulin Pen) NOVOLOG *MILD* ALGORITHM WITH MEALS BEDTIME SC ; Start 02/09/19 at 08:00 Sodium Chloride 1,000 ml @ 75 mls/hr [id number] IV Last administered on 02/11/19at 05:00; Admin Dose 75 MLS/HR; Start 02/09/19 at 12:00 Miscellaneous Information 1 ea NOTE XX ; Start 02/09/19 at 11:00 Glucose (Glutose) 15 gm Q15M PRN PO DECREASED GLUCOSE; Start 02/09/19 at 11:00 Glucose (Glutose) 22.5 gm Q15M PRN PO DECREASED GLUCOSE; Start 02/09/19 at 11:00 Dextrose (D50w Syringe) 25 ml Q15M PRN IV DECREASED GLUCOSE; Start 02/09/19 at 11:00 Dextrose (D50w Syringe) 50 ml Q15M PRN IV DECREASED GLUCOSE; Start 02/09/19 at 11:00 Glucagon (Glucagen) 1 mg Q15M PRN IM DECREASED GLUCOSE; Start 02/09/19 at 11:00 Glucose (Glutose) 15 gm Q15M PRN BUCCAL DECREASED GLUCOSE; Start 02/09/19 at 11:00 Metoprolol Tartrate (Lopressor) 25 mg BID PO Last administered on 02/11/19at 08:54; Admin Dose 25 MG; Start 02/09/19 at 15:30 Acetaminophen (Tylenol Tab) 1,000 mg Q6H PRN PO MILD PAIN(1-3)OR ELEVATED TEMP; Start 02/09/19 at 15:30 Cholecalciferol (Vitamin D) 1,000 unit DAILY PO Last administered on 02/10/19at 08:13; Admin Dose 1,000 UNIT; Start 02/10/19 at 09:00 Gabapentin (Neurontin) 300 mg TID PO Last administered on 02/10/19at 20:42; Admin Dose 300 MG; Start 02/09/19 at 21:00 Acetaminophen/ Hydrocodone Bitart ([place] (5/325)) 1 tab Q6H PRN PO PAIN; Start 02/09/19 at 15:30 Meclizine HCl (Antivert) 25 mg Q6H PRN PO DIZZINESS; Start 02/09/19 at 16:00 Pantoprazole (Protonix Tab) 40 mg DAILY@0600 PO Last administered on 02/10/19at 06:25; Admin Dose 40 MG; Start 02/10/19 at 06:00 Atorvastatin Calcium (Lipitor) 20 mg HS PO Last administered on 02/10/19at 20:42; Admin Dose 20 MG; Start 02/09/19 at 21:00 Meropenem/Sodium Chloride 50 ml @ 100 mls/hr Q12 IVPB Last administered on 02/11/19at 08:47; Admin Dose 100 MLS/HR; Start 02/10/19 at 12:35 Vancomycin HCl (Vanco Iv Per Pharmacy) VANCOMYCIN PER PHARMACY PER PROTOCOL XX ; Start 02/10/19 at 11:30 Vancomycin/Sodium Chloride 250 ml @ 83.333 mls/ hr Q48H IVPB ; Start 02/12/19 at 12:00 NICOLLE TRAORE MD Feb 11, 2019 11:55
[2019-02-11] MEDS ORDERED: LIDOCAINE 2% (SDV) 5 ML INJ ONE (11:59)
[2019-02-11] MEDS ORDERED: PROPOFOL 40 ML ONE (11:59)
[2019-02-11] MEDS ORDERED: FENTAnyl 50 MCG/ML VIAL ONE (11:59)
[2019-02-11] MEDS ORDERED: BUPIVACAINE 0.5% (SDV) 30 ML INJ ONE (12:25)
[2019-02-11] MEDS ORDERED: LIDOCAINE 1% (MPF) 30 ML INJ ONE (12:25)
[2019-02-11] MEDS ORDERED: POLYMYXIN/BACITRACIN 1L IRRIG ONE (12:32)
[2019-02-11] MEDS ORDERED: PHENYLephrine (100 MCG/ML) 10ML SYG ONE (12:50)
[2019-02-11] MEDS ORDERED: LABETALOL HCL 20MG INJ IV PRN (13:30)
[2019-02-11] MEDS ORDERED: OXYCODONE/ACETAMINOPHEN (5/325) TAB PO PRN (13:30)
[2019-02-11] MEDS ORDERED: DIPHENHYDRAMINE 50 MG INJ IV PRN (13:30)
[2019-02-11] MEDS ORDERED: EPHEDrine 25 MG/5 ML SYG IV PRN (13:30)
[2019-02-11] MEDS ORDERED: morphine 2 MG INJ IV PRN (13:30)
[2019-02-11] MEDS ORDERED: FENTAnyl 50 MCG/ML VIAL IV PRN (13:30)
[2019-02-11] MEDS ORDERED: HYDROmorphONE 1 MG/5 ML IV SYRINGE IV PRN (13:30)
[2019-02-11] MEDS ORDERED: hydrALAzine 20 MG INJ IV PRN (13:30)
[2019-02-11] MEDS ORDERED: ALBUTEROL 0.083% (NEB) 2.5 MG/3 ML AMP HHN PRN (13:30)
[2019-02-11] MEDS ORDERED: ONDANSETRON 4 MG INJ IV PRN (13:30)
--- NOTE | 2019-02-11 13:41 | SIPON ---
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
--- NOTE | 2019-02-11 13:42 | PAC ---
Date/Time of Note Date/Time of Note DATE: 02/11/19 TIME: 13:41 Post-Anesthesia Notes Post-Anesthesia Note Last documented vital signs Vital Signs Date Temp Pulse Resp B/P (MAP) Pulse Ox O2 O2 Flow FiO2 Time Delivery Rate 02/11/19 97.9 78 16 111/80 99 face mask 13:39 8L 02/11/19 90 18 113/58 97 11:34 (76) 02/09/19 Room Air 10:02 Activity: WNL Respiratory function: WNL Cardiovascular function: WNL Mental status: Baseline Pain reasonably controlled: Yes Hydration appropriate: Yes Nausea/Vomiting absent: Yes ZEUS ORTIZ Feb 11, 2019 13:42
--- NOTE | 2019-02-11 13:43 | OPR ---
Date/Time of Note Date/Time of Note DATE: 02/11/19 TIME: 13:43 Operative Report Preoperative Diagnosis Right foot diabetic ulceration Right foot dry gangrene Right foot localized cellulitis Right foot osteomyelitis PAD s/p R iliofemoral endarterectomy Postoperative Diagnosis Right foot diabetic ulceration Right foot dry gangrene Right foot localized cellulitis Right foot osteomyelitis PAD s/p R iliofemoral endarterectomy Operation/Procedure Performed right foot 4th partial ray resection Right foot 3rd digit amputation Right foot excisional debridement Right foot partial wound closure application of allograft Surgeon see signature line Showroom Consultant none Anesthesia Type: MAC Estimated Blood Loss: 10 - 50 ml's Transfusion none Specimen right 3rd digit pathology right 4th digit pathology right foot wound post lavage culture Grafts/Implants integra bilayer Complications none Indications 88 y/o diabetic F with PAD s/p iliofemoral endarterectomy with gangrene digits of the right foot. Discussed with patient and family members surgical intervention and are amenable to the procedure. Addressed all of the patients questions and concerns, no promises or guarantees were given. Procedure Description Patient was brought to the OR and placed in the supine position. The right lower extremity was scrubbed, prepped, and draped in the usual aseptic fashion. A formal time out was conducted. A local block was administered to the right lower extremity surgical site. Attention was directed to the right foot where there was gangrene to the right 4th digit and there were gangrenous lesions to the right 3rd digit. Using sharp dissection the right 4th digit gangrene was amputated from the metatar sophalangeal joint. In addition, using a sagittal saw on power the metatarsal head was resected to complete the partial 4th ray resection. The bone and 4th digit was sent for pathology. The bone removed appeared soft with cortical disruptions. Upon further inspection there was no purulence that could be expressed. There was adequate bleeding noted to the surgical site. Non-viable tissue was removed with sharp dissection. Next attentions was directed to the right 3rd digit. The dorsal portion, later al and plantar aspects of the toe appeared gangrenous with gangrene changes occurring. The medial aspect of the toe appeared viable. A 3rd digit amputation was performed at the level of the metatarsophalangeal joint using sharp dissection and the toe was sent for pathology. The bone appeared friable and non-viable. Upon inspection of the skin there was thrombosis noted to porti ons of the micro vasculature. These areas were removed until viable capillary bleeding was appreciated. Non-viable tissue was removed with sharp dissection. Copious antibiotic infused saline irrigation was used at the amputation sites and wound cultures were obtained. Using the viable skin flap from the 3rd digit amputation site a partial wound closure of both amputation sites were performed and skin edges under minimal tension was reapproximated using 4-0 prolene. There was still a wound deficit th at measured 2 x 2 x 0.5cm which was covered with integra bilayer allograft and was secured with skin will. Excisional debridement of the right 5th digit medial aspect ulceration site of skin/subQ using a scalpel blade was performed. The wound measure 0.9 x 0.4 x 0.2cm which was fibrogranular in nature and did not probe to bone. Fibrotic tissue and biofilm was removed. 0.36cm2 area was debrided. Xeroform, and dry sterile dressings were applied to the right foot and placed into her soft offloading prevelon boots. Patient was transferred to the PACU with vital signs stable and neurovascular status intact. JUANI BAHENA DPM Feb 11, 2019 13:43
--- NOTE | 2019-02-11 13:59 | PN ---
Date/Time of Note Date/Time of Note DATE: 02/11/19 TIME: 13:52 Assessment/Plan VTE Prophylaxis Risk score (from [facility] [place])>0 risk: 5 SCD applied (from [facility] [place]): No SCD contraindicated: other Pharmacological prophylaxis: NA/contraindicated Pharm contraindication: surgical contra Lines/Catheters IV C[facility]ter Type (from [facility] PICC Line Central line still needed: Yes Urinary Cath still in place: No Assessment/Plan Hospital Course Patient is taken to OR for right foot debridement, no acute events reported prior to procedure. 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 Dr. Maynard is following and podiatry consultation. Dr. Rubalcava is following in infection disease consultation. -Severe peripheral vascular disease with history of right ileal femoral endarterectomy on 01/18/[address] Allen. -Atrial fibrillation. Dr Nitesh cobb is following in cardiology consultation. -Hypertension -Acute kidney injury on chronic kidney disease. -Anemia of chronic disease -Type 2 diabetes mellitus Further recommendations based on clinical course. Plan of care discussed with Dr. Williamson. Result Diagram: 02/11/19 0516 02/11/19 0516 Results 24hrs Laboratory Tests Test 02/10/19 16:49 02/10/19 20:40 02/11/19 05:16 02/11/19 08:27 Bedside Glucose 124 157 87 White Blood Count 7.9 Red Blood Count 3.33 L Hemoglobin 9.0 L Hematocrit 30.6 L Mean Corpuscular 91.9 Volume Mean Corpuscular 27.0 L Hemoglobin Mean Corpuscular 29.4 L Hemoglobin Concent Red Cell 13.9 Distribution Width Platelet Count 373 Mean Platelet Volume 9.8 Immature 0.400 Granulocytes % Neutrophils % 67.2 Lymphocytes % 19.2 Monocytes % 8.2 Eosinophils % 4.1 Basophils % 0.9 Nucleated Red Blood 0.0 Cells % Immature 0.030 Granulocytes # Neutrophils # 5.3 Lymphocytes # 1.5 Monocytes # 0.7 Eosinophils # 0.3 Basophils # 0.1 Nucleated Red Blood 0.0 Cells # Sodium Level 141 Potassium Level 4.7 Chloride Level 107 Carbon Dioxide Level 28 Anion Gap 6 Blood Urea Nitrogen 29 H Creatinine 1.12 H Est Glomerular Filtrat Rate mL/min Glucose Level 103 Calcium Level 8.1 L Total Bilirubin 0.3 Direct Bilirubin 0.00 Indirect Bilirubin 0.3 Aspartate Amino 30 Transf (AST/SGOT) Alanine 21 Aminotransferase (AL T/SGPT) Alkaline Phosphatase 107 Total Protein 6.1 Albumin 2.8 L Globulin 3.30 H Albumin/Globulin 0.84 Ratio Exam/Review of Systems Exam Vitals Vital Signs Date Temp Pulse Resp B/P (MAP) Pulse Ox O2 O2 Flow FiO2 Time Delivery Rate 02/11/19 97.9 13:39 02/11/19 90 18 113/58 97 11:34 (76) 02/09/19 Room Air 10:02 Intake and Output 02/10/19 02/10/19 02/11/19 1515:00 23:00 07:00 IntakeIntake Total 370 ml 450 ml 1450 ml BalanceBalance 370 ml 450 ml 1450 ml Results Results 24hrs Laboratory Tests Test 02/10/19 16:49 02/10/19 20:40 02/11/19 05:16 02/11/19 08:27 Bedside Glucose 124 157 87 White Blood Count 7.9 Red Blood Count 3.33 L Hemoglobin 9.0 L Hematocrit 30.6 L Mean Corpuscular 91.9 Volume Mean Corpuscular 27.0 L Hemoglobin Mean Corpuscular 29.4 L Hemoglobin Concent Red Cell 13.9 Distribution Width Platelet Count 373 Mean Platelet Volume 9.8 Immature 0.400 Granulocytes % Neutrophils % 67.2 Lymphocytes % 19.2 Monocytes % 8.2 Eosinophils % 4.1 Basophils % 0.9 Nucleated Red Blood 0.0 Cells % Immature 0.030 Granulocytes # Neutrophils # 5.3 Lymphocytes # 1.5 Monocytes # 0.7 Eosinophils # 0.3 Basophils # 0.1 Nucleated Red Blood 0.0 Cells # Sodium Level 141 Potassium Level 4.7 Chloride Level 107 Carbon Dioxide Level 28 Anion Gap 6 Blood Urea Nitrogen 29 H Creatinine 1.12 H Est Glomerular Filtrat Rate mL/min Glucose Level 103 Calcium Level 8.1 L Total Bilirubin 0.3 Direct Bilirubin 0.00 Indirect Bilirubin 0.3 Aspartate Amino 30 Transf (AST/SGOT) Alanine 21 Aminotransferase (AL T/SGPT) Alkaline Phosphatase 107 Total Protein 6.1 Albumin 2.8 L Globulin 3.30 H Albumin/Globulin 0.84 Ratio Medications Medication Current Medications Aspirin (Aspirin) 81 mg DAILY PO Last administered on 02/10/19at 08:13; Admin Dose 81 MG; Start 02/09/19 at 09:00 Acetaminophen/ Hydrocodone Bitart ([place] (5/325)) 1 tab Q6H PRN PO MODERATE PAIN LEVEL 4-6; Start 02/08/19 at 23:00 Morphine Sulfate (morphine) 2 mg Q4H PRN IV SEVERE PAIN LEVEL 7-10; Start 02/08/19 at 23:00 Acetaminophen (Tylenol Tab) 650 mg Q6H PRN PO MILD PAIN(1-3)OR ELEVATED TEMP; Start 02/08/19 at 23:00 Insulin Aspart (Novolog Insulin Pen) NOVOLOG *MILD* ALGORITHM WITH MEALS BEDTIME SC ; Start 02/09/19 at 08:00 Sodium Chloride 1,000 ml @ 75 mls/hr [id number] IV Last administered on 02/11/19at 05:00; Admin Dose 75 MLS/HR; Start 02/09/19 at 12:00 Miscellaneous Information 1 ea NOTE XX ; Start 02/09/19 at 11:00 Glucose (Glutose) 15 gm Q15M PRN PO DECREASED GLUCOSE; Start 02/09/19 at 11:00 Glucose (Glutose) 22.5 gm Q15M PRN PO DECREASED GLUCOSE; Start 02/09/19 at 11:00 Dextrose (D50w Syringe) 25 ml Q15M PRN IV DECREASED GLUCOSE; Start 02/09/19 at 11:00 Dextrose (D50w Syringe) 50 ml Q15M PRN IV DECREASED GLUCOSE; Start 02/09/19 at 11:00 Glucagon (Glucagen) 1 mg Q15M PRN IM DECREASED GLUCOSE; Start 02/09/19 at 11:00 Glucose (Glutose) 15 gm Q15M PRN BUCCAL DECREASED GLUCOSE; Start 02/09/19 at 11:00 Metoprolol Tartrate (Lopressor) 25 mg BID PO Last administered on 02/11/19at 08:54; Admin Dose 25 MG; Start 02/09/19 at 15:30 Acetaminophen (Tylenol Tab) 1,000 mg Q6H PRN PO MILD PAIN(1-3)OR ELEVATED TEMP; Start 02/09/19 at 15:30 Cholecalciferol (Vitamin D) 1,000 unit DAILY PO Last administered on 02/10/19at 08:13; Admin Dose 1,000 UNIT; Start 02/10/19 at 09:00 Gabapentin (Neurontin) 300 mg TID PO Last administered on 02/10/19at 20:42; Admin Dose 300 MG; Start 02/09/19 at 21:00 Acetaminophen/ Hydrocodone Bitart ([place] (5/325)) 1 tab Q6H PRN PO PAIN; Start 02/09/19 at 15:30 Meclizine HCl (Antivert) 25 mg Q6H PRN PO DIZZINESS; Start 02/09/19 at 16:00 Pantoprazole (Protonix Tab) 40 mg DAILY@0600 PO Last administered on 02/10/19at 06:25; Admin Dose 40 MG; Start 02/10/19 at 06:00 Atorvastatin Calcium (Lipitor) 20 mg HS PO Last administered on 02/10/19at 20:42; Admin Dose 20 MG; Start 02/09/19 at 21:00 Meropenem/Sodium Chloride 50 ml @ 100 mls/hr Q12 IVPB Last administered on 02/11/19at 08:47; Admin Dose 100 MLS/HR; Start 02/10/19 at 12:35 Vancomycin HCl (Vanco Iv Per Pharmacy) VANCOMYCIN PER PHARMACY PER PROTOCOL XX ; Start 02/10/19 at 11:30 Vancomycin/Sodium Chloride 250 ml @ 83.333 mls/ hr Q48H IVPB ; Start 02/12/19 at 12:00 Morphine Sulfate (morphine) 2 mg PACU PRN IV PAIN LEVEL 1-3; Start 02/11/19 at 13:30; Stop 02/11/19 at 17:30 Hydromorphone HCl (Dilaudid) 0.2 mg PACU PRN IV MILD PAIN 1-3; Start 02/11/19 at 13:30; Stop 02/11/19 at 17:30 Fentanyl (Sublimaze) 25 mcg PACU ORDER PRN IV MILD PAIN 1-3; Start 02/11/19 at 13:30; Stop 02/11/19 at 17:30 Oxycodone/ Acetaminophen (Percocet (5/ 325)) 1 tab PACU ORDER PRN PO .PAIN 1-5; Start 02/11/19 at 13:30; Stop 02/11/19 at 17:30 Ondansetron HCl (Zofran Inj) 4 mg PACU ORDER PRN IV NAUSEA/VOMITING; Start 02/11/19 at 13:30; Stop 02/11/19 at 17:30 Labetalol HCl (Labetalol) 5 mg PACU ORDER PRN IV HIGH BLOOD PRESSURE; Start 02/11/19 at 13:30; Stop 02/11/19 at 17:30 Hydralazine HCl (Apresoline) 5 mg PACU ORDER PRN IV HIGH BLOOD PRESSURE; Start 02/11/19 at 13:30; Stop 02/11/19 at 17:30 Ephedrine Sulfate 5 mg PACU ORDER PRN IV BLOOD PRESSURE SUPPORT; Start 02/11/19 at 13:30; Stop 02/11/19 at 17:30 Albuterol (Proventil 0.083% (Neb)) 2.5 mg PACU ORDER PRN HHN .WHEEZING Last administered on 02/11/19at 13:49; Admin Dose 2.5 MG; Start 02/11/19 at 13:30; Stop 02/11/19 at 17:30 Diphenhydramine HCl (Benadryl) 25 mg PACU ORDER PRN IV .PRURITUS; Start 02/11/19 at 13:30; Stop 02/11/19 at 17:30 RAULITO CARO Feb 11, 2019 13:58
[2019-02-11] MEDS: VANCOMYCIN 750 MG (PMX) 250 ML IVPB SCH (17:25)
[2019-02-11] MEDS: ATORVASTATIN 20 MG TAB PO SCH (20:15)
--- NOTE | 2019-02-11 20:49 | CONS ---
Assessment/Plan Assessment/Plan Hospital Course (Demo Recall) - h/o diabetic ulcer, gangrene and osteomyelitis of R foot - s/p R 3rd toe amputation, R 4th partial ray resection, excisional debridement and partial wound closure of R foot, and allograft application 02/11/19 - h/o diabetic ulcer and OM of R foot. MRI on 12/31/2018 showed mild bone marrow edema in R 4th toe proximal phalanx which could represent early OM or nonspecific stress reaction. Moderate soft tissue edema without evidence of abscess, suggesting cellulitis. The wound culture on 12/31/2018 grew Enterobacter, Corynebacteria and Stenotrophomonas - severe PAD - h/o R iliofemoral endarterectomy 01/18/2019 - h/o revascularization in the past - T2DM - Hgb A1c 6.8% - CKD - Atrial fib - HR stable - HTN - Mild , mild AR/MR, and mild-mod TR - ACD - h/o mental status change, hallucinations during her admission between 01/09 and 02/08 suspected to be caused by levofloxacin (01/18/2019-01/20/2019). Pt's grandson informed 02/11/19 that her family thought gabapentin caused hallucination then. P t's currently on gabapentin and her mental status appears intact. Therefore, we suspect levofloxacin caused MS change - bacteremia due to Staph spp on 02/08/2019 possible contaminant - enterococci in urine culture on 02/09/19. Pt denies UTI Sx - Allergy to PCN (erythroderma and generalized swelling) and levofloxacin (MS change as above) recommendations: - pending results: superficial culture of the wound 02/10/19 (gram negative bacteria), deep culture from the surgery on 02/11, repeat blood cultures from 02/10, urine culture from 02/09/19, pathology report - continue IV vanc and meropenem. The original plan was 6 week course of antibiotics through 02/15/2019. I will comment on the final date of antibiotic when all the culture results are back - Pt's grandson said that her family had thought gabapentin caused hallucination during her last admission. Pt's currently on gabapentin and her mental status appears intact. Therefore, we suspect levofloxacin caused MS change at that time - the total time I took to care for this Pt today was from 2029 to 1914 Consultation Date/Type/Reason Admit Date/Time Feb 08, 2019 at 20:38 Initial Consult Date 02/10/19 Type of Consult ID Requesting Provider: GONZALEZ ANAYA MD Date/Time of Note DATE: 02/11/19 TIME: 20:43 24 HR Interval Summary Free Text/Dictation lethargic and limited Constitutional: no complaints Detailed Summary Respiratory: no complaints Cardiovascular: no complaints Gastrointestinal: no complaints Musculoskeletal: no complaints Skin: no complaints Exam/Review of Systems Exam Vitals Vital Signs Date Temp Pulse Resp B/P (MAP) Pulse Ox O2 O2 Flow FiO2 Time Delivery Rate 02/11/19 97.9 96 18 116/62 95 20:05 (80) 9 02/11/19 Nasal 2.0 14:31 Cannula Intake and Output 02/10/19 02/10/19 02/11/19 1515:00 23:00 07:00 IntakeIntake Total 370 ml 450 ml 1450 ml BalanceBalance 370 ml 450 ml 1450 ml Constitutional: frail Psych: no complaints, nl mood/affect, other (no longer confused) Head: normocephalic, atraumatic Eyes: nl conjunctiva, nl lids ENMT: nl external ears & nose, nl nasal mucosa & septum Neck: supple Respiratory: diminished breath sounds Cardiovascular: regular rate and rhythm, nl pulses Gastrointestinal: soft, non-tender Genitourinary - Female: other (no FC) Musculoskeletal: other (R foot is dressed, both feet in the boots) Extremities: No edema Neurological: nl mental status Skin: nl turgor Results Result Diagram: 02/11/19 0516 02/11/19 0516 Results 24hrs Laboratory Tests Test 02/11/19 05:16 02/11/19 08:27 02/11/19 15:35 02/11/19 17:32 White Blood Count 7.9 Red Blood Count 3.33 L Hemoglobin 9.0 L Hematocrit 30.6 L Mean Corpuscular 91.9 Volume Mean Corpuscular 27.0 L Hemoglobin Mean Corpuscular 29.4 L Hemoglobin Concent Red Cell 13.9 Distribution Width Platelet Count 373 Mean Platelet Volume 9.8 Immature 0.400 Granulocytes % Neutrophils % 67.2 Lymphocytes % 19.2 Monocytes % 8.2 Eosinophils % 4.1 Basophils % 0.9 Nucleated Red Blood 0.0 Cells % Immature 0.030 Granulocytes # Neutrophils # 5.3 Lymphocytes # 1.5 Monocytes # 0.7 Eosinophils # 0.3 Basophils # 0.1 Nucleated Red Blood 0.0 Cells # Sodium Level 141 Potassium Level 4.7 Chloride Level 107 Carbon Dioxide Level 28 Anion Gap 6 Blood Urea Nitrogen 29 H Creatinine 1.12 H Est Glomerular Filtrat Rate mL/min Glucose Level 103 Calcium Level 8.1 L Total Bilirubin 0.3 Direct Bilirubin 0.00 Indirect Bilirubin 0.3 Aspartate Amino 30 Transf (AST/SGOT) Alanine 21 Aminotransferase (AL T/SGPT) Alkaline Phosphatase 107 Total Protein 6.1 Albumin 2.8 L Globulin 3.30 H Albumin/Globulin 0.84 Ratio Bedside Glucose 87 78 112 Test 02/11/19 20:19 Bedside Glucose 200 Medications Medication Current Medications Aspirin (Aspirin) 81 mg DAILY PO Last administered on 02/10/19at 08:13; Admin Dose 81 MG; Start 02/09/19 at 09:00 Acetaminophen/ Hydrocodone Bitart ([place] (5/325)) 1 tab Q6H PRN PO MODERATE PAIN LEVEL 4-6; Start 02/08/19 at 23:00 Morphine Sulfate (morphine) 2 mg Q4H PRN IV SEVERE PAIN LEVEL 7-10; Start 02/08/19 at 23:00 Acetaminophen (Tylenol Tab) 650 mg Q6H PRN PO MILD PAIN(1-3)OR ELEVATED TEMP; Start 02/08/19 at 23:00 Insulin Aspart (Novolog Insulin Pen) NOVOLOG *MILD* ALGORITHM WITH MEALS BEDTIME SC Last administered on 02/11/19at 20:22; Admin Dose 1 UNIT; Start 02/09/19 at 08:00 Sodium Chloride 1,000 ml @ 75 mls/hr [id number] IV Last administered on 02/11/19at 20:25; Admin Dose 75 MLS/HR; Start 02/09/19 at 12:00 Miscellaneous Information 1 ea NOTE XX ; Start 02/09/19 at 11:00 Glucose (Glutose) 15 gm Q15M PRN PO DECREASED GLUCOSE; Start 02/09/19 at 11:00 Glucose (Glutose) 22.5 gm Q15M PRN PO DECREASED GLUCOSE; Start 02/09/19 at 11:00 Dextrose (D50w Syringe) 25 ml Q15M PRN IV DECREASED GLUCOSE; Start 02/09/19 at 11:00 Dextrose (D50w Syringe) 50 ml Q15M PRN IV DECREASED GLUCOSE; Start 02/09/19 at 11:00 Glucagon (Glucagen) 1 mg Q15M PRN IM DECREASED GLUCOSE; Start 02/09/19 at 11:00 Glucose (Glutose) 15 gm Q15M PRN BUCCAL DECREASED GLUCOSE; Start 02/09/19 at 11:00 Metoprolol Tartrate (Lopressor) 25 mg BID PO Last administered on 02/11/19at 20:15; Admin Dose 25 MG; Start 02/09/19 at 15:30 Acetaminophen (Tylenol Tab) 1,000 mg Q6H PRN PO MILD PAIN(1-3)OR ELEVATED TEMP; Start 02/09/19 at 15:30 Cholecalciferol (Vitamin D) 1,000 unit DAILY PO Last administered on 02/10/19at 08:13; Admin Dose 1,000 UNIT; Start 02/10/19 at 09:00 Gabapentin (Neurontin) 300 mg TID PO Last administered on 02/11/19at 20:15; Admin Dose 300 MG; Start 02/09/19 at 21:00 Acetaminophen/ Hydrocodone Bitart ([place] (5/325)) 1 tab Q6H PRN PO PAIN; Start 02/09/19 at 15:30 Meclizine HCl (Antivert) 25 mg Q6H PRN PO DIZZINESS; Start 02/09/19 at 16:00 Pantoprazole (Protonix Tab) 40 mg DAILY@0600 PO Last administered on 02/10/19at 06:25; Admin Dose 40 MG; Start 02/10/19 at 06:00 Atorvastatin Calcium (Lipitor) 20 mg HS PO Last administered on 02/11/19at 20:15; Admin Dose 20 MG; Start 02/09/19 at 21:00 Meropenem/Sodium Chloride 50 ml @ 100 mls/hr Q12 IVPB Last administered on 02/11/19at 20:14; Admin Dose 100 MLS/HR; Start 02/10/19 at 12:35 Vancomycin HCl (Vanco Iv Per Pharmacy) VANCOMYCIN PER PHARMACY PER PROTOCOL XX ; Start 02/10/19 at 11:30 Vancomycin/Sodium Chloride 250 ml @ 125 mls/hr Q24H IVPB Last administered on 02/11/19at 17:25; Admin Dose 125 MLS/HR; Start 02/11/19 at 17:00 JAQUELINE HUNTER M.D. Feb 11, 2019 20:49
[2019-02-12] VITALS (7 sets, daily range): BP systolic 91–121; BP diastolic 53–61; PULSE 66–110; RESP 18–20
[2019-02-12] MEDS: PANTOPRAZOLE (EC) 40 MG TAB PO SCH (05:53)
[2019-02-12] MEDS: HYDROCODONE/APAP (5/325) TAB PO PRN (05:54)
[2019-02-12] MEDS: SOD CHLORIDE 0.9% 1,000 ML IV SCH (06:40)
[2019-02-12] MEDS: INSULIN ASPART [NOVOLOG] 3 ML PEN SC SCH ×4 (07:52→20:13)
[2019-02-12] MEDS: MEROPENEM 1 GM/50ML(PMX) 50 ML IVPB SCH ×2 (08:35→20:07)
[2019-02-12] MEDS: CHOLECALCIFEROL 1,000 UNIT TAB PO SCH (08:36)
[2019-02-12] MEDS: ASPIRIN 81 MG TAB PO SCH (08:36)
[2019-02-12] MEDS: METOPROLOL 25 MG TAB PO SCH ×2 (08:36→20:12)
[2019-02-12] MEDS: GABAPENTIN 300 MG CAP PO SCH ×3 (08:37→20:12)
--- NOTE | 2019-02-12 11:31 | CONS ---
Assessment/Plan Assessment/Plan Assessment/Plan (Daily) 1. acute kidney injury on CKD III due to ATN from sepsis and hypotension + prerenal azotemia 2. Acute hyperkalemia due to NATY 3. H/o PVD s/p Right femoral endareterectomy 4. H/o Chronic atrial fibrillation 5. H/o HTN with currently hypotension 6. Anemia of CKD 7. H/o DM II Plan: IV abx meropenem and IV vancomycin , Reanlly dose all abx and monitor electrolytes BUN/Cr improved to 22/1.12,other electrolytes stable yesterday,no labs today to review yet, continue IVF NS at 75 cc/hr Metoprolol 25 mg BID will follow up Consultation Date/Type/Reason Admit Date/Time Feb 08, 2019 at 20:38 Initial Consult Date 02/10/19 Type of Consult NEPHROLOGY Requesting Provider: GONZALEZ ANAYA MD Date/Time of Note DATE: 02/12/19 TIME: 11:30 Exam/Review of Systems Exam Vitals Vital Signs Date Temp Pulse Resp B/P (MAP) Pulse Ox O2 O2 Flow FiO2 Time Delivery Rate 02/12/19 2.0 07:50 02/12/19 97.7 81 20 100/56 98 Nasal 07:16 (71) Cannula Intake and Output 02/11/19 02/11/19 02/12/19 1515:00 23:00 07:00 IntakeIntake Total 90 ml 1775 ml 1200 ml OutputOutput Total 475 ml 600 ml 1 ml BalanceBalance -385 ml 1175 ml 1199 ml Exam Constitutional: alert, oriented, well developed Respiratory: clear to auscultation Cardiovascular: irregular rhythm; Gastrointestinal: soft, non-tender Musculoskeletal: other (right foot covered in bandage) Extremities: other (absent dp pulse on left) Neurological: nl mental status, nl speech Results Result Diagram: 02/11/19 0516 02/11/19 0516 Results 24hrs Laboratory Tests Test 02/11/19 15:35 02/11/19 17:32 02/11/19 20:19 02/12/19 01:54 Bedside Glucose 78 112 200 121 Test 02/12/19 07:51 Bedside Glucose 93 Medications Medication Current Medications Aspirin (Aspirin) 81 mg DAILY PO Last administered on 02/12/19at 08:36; Admin Dose 81 MG; Start 02/09/19 at 09:00 Acetaminophen/ Hydrocodone Bitart ([place] (5/325)) 1 tab Q6H PRN PO MODERATE PAIN LEVEL 4-6 Last administered on 02/12/19at 05:54; Admin Dose 1 TAB; Start 02/08/19 at 23:00 Morphine Sulfate (morphine) 2 mg Q4H PRN IV SEVERE PAIN LEVEL 7-10; Start 02/08/19 at 23:00 Acetaminophen (Tylenol Tab) 650 mg Q6H PRN PO MILD PAIN(1-3)OR ELEVATED TEMP; Start 02/08/19 at 23:00 Insulin Aspart (Novolog Insulin Pen) NOVOLOG *MILD* ALGORITHM WITH MEALS BEDTIME SC Last administered on 02/11/19at 20:22; Admin Dose 1 UNIT; Start 02/09/19 at 08:00 Sodium Chloride 1,000 ml @ 75 mls/hr [id number] IV Last administered on 02/11/19at 20:25; Admin Dose 75 MLS/HR; Start 02/09/19 at 12:00 Miscellaneous Information 1 ea NOTE XX ; Start 02/09/19 at 11:00 Glucose (Glutose) 15 gm Q15M PRN PO DECREASED GLUCOSE; Start 02/09/19 at 11:00 Glucose (Glutose) 22.5 gm Q15M PRN PO DECREASED GLUCOSE; Start 02/09/19 at 11:00 Dextrose (D50w Syringe) 25 ml Q15M PRN IV DECREASED GLUCOSE; Start 02/09/19 at 11:00 Dextrose (D50w Syringe) 50 ml Q15M PRN IV DECREASED GLUCOSE; Start 02/09/19 at 11:00 Glucagon (Glucagen) 1 mg Q15M PRN IM DECREASED GLUCOSE; Start 02/09/19 at 11:00 Glucose (Glutose) 15 gm Q15M PRN BUCCAL DECREASED GLUCOSE; Start 02/09/19 at 11:00 Metoprolol Tartrate (Lopressor) 25 mg BID PO Last administered on 02/12/19at 08:36; Admin Dose 25 MG; Start 02/09/19 at 15:30 Acetaminophen (Tylenol Tab) 1,000 mg Q6H PRN PO MILD PAIN(1-3)OR ELEVATED TEMP; Start 02/09/19 at 15:30 Cholecalciferol (Vitamin D) 1,000 unit DAILY PO Last administered on 02/12/19 08:36; Admin Dose 1,000 UNIT; Start 02/10/19 at 09:00 Gabapentin (Neurontin) 300 mg TID PO Last administered on 02/11/19 20:15; Admin Dose 300 MG; Start 02/09/19 at 21:00 Acetaminophen/ Hydrocodone Bitart ([place] (5/325)) 1 tab Q6H PRN PO PAIN; Start 02/09/19 at 15:30 Meclizine HCl (Antivert) 25 mg Q6H PRN PO DIZZINESS; Start 02/09/19 at 16:00 Pantoprazole (Protonix Tab) 40 mg DAILY@0600 PO Last administered on 02/12/19 05:53; Admin Dose 40 MG; Start 02/10/19 at 06:00 Atorvastatin Calcium (Lipitor) 20 mg HS PO Last administered on 02/11/19 20:15; Admin Dose 20 MG; Start 02/09/19 at 21:00 Meropenem/Sodium Chloride 50 ml @ 100 mls/hr Q12 IVPB Last administered on 02/12/19 08:35; Admin Dose 100 MLS/HR; Start 02/10/19 at 12:35 Vancomycin HCl (Vanco Iv Per Pharmacy) VANCOMYCIN PER PHARMACY PER PROTOCOL XX ; Start 02/10/19 at 11:30 Vancomycin/Sodium Chloride 250 ml @ 125 mls/hr Q24H IVPB Last administered on 02/11/19 17:25; Admin Dose 125 MLS/HR; Start 02/11/19 at 17:00 NICOLLE TRAORE MD Feb 12, 2019 11:31
[2019-02-12] MEDS ORDERED: VANCOMYCIN 1.25 GM/NS 250 ML 250 ML IVPB SCH (12:00)
--- NOTE | 2019-02-12 13:09 | CONS ---
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 Offload heels with pillows and soft prevelon boots. 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 Intra op pathology pending. Abx per ID recommendations. No further podiatric procedures planned at this time. Consultation Date/Type/Reason Admit Date/Time Feb 08, 2019 at 20:38 Initial Consult Date 02/10/19 Requesting Provider: GONZALEZ ANAYA MD Date/Time of Note DATE: 02/12/19 TIME: 13:09 24 HR Interval Summary Free Text/Dictation No events overnight. Exam/Review of Systems Exam Vitals Vital Signs Date Temp Pulse Resp B/P (MAP) Pulse Ox O2 O2 Flow FiO2 Time Delivery Rate 02/12/19 98.0 66 20 91/53 (66) 97 Nasal 11:41 Cannula 02/12/19 2.0 07:50 Intake and Output 02/11/19 02/11/19 02/12/19 1515:00 23:00 07:00 IntakeIntake Total 90 ml 1775 ml 1200 ml OutputOutput Total 475 ml 600 ml 1 ml BalanceBalance -385 ml 1175 ml 1199 ml Exam Patient with 3rd and 4th digit amputation sites with allograft in place secured with skin will and skin sutures intact No gangrene appreciated right medial 5th digit ulceration site 0.9 x 0.4 x 0.2cm which was fibrogranular in nature and did not probe to bone. Absent protective sensations Results Result Diagram: 02/11/19 0516 02/11/19 0516 Results 24hrs Laboratory Tests Test 02/11/19 15:35 02/11/19 17:32 02/11/19 20:19 02/12/19 01:54 Bedside Glucose 78 112 200 121 Test 02/12/19 07:51 02/12/19 11:36 Bedside Glucose 93 152 Medications Medication Current Medications Aspirin (Aspirin) 81 mg DAILY PO Last administered on 02/12/19at 08:36; Admin Dose 81 MG; Start 02/09/19 at 09:00 Acetaminophen/ Hydrocodone Bitart ([place] (5/325)) 1 tab Q6H PRN PO MODERATE PAIN LEVEL 4-6 Last administered on 02/12/19at 05:54; Admin Dose 1 TAB; Start 02/08/19 at 23:00 Morphine Sulfate (morphine) 2 mg Q4H PRN IV SEVERE PAIN LEVEL 7-10; Start 02/08/19 at 23:00 Acetaminophen (Tylenol Tab) 650 mg Q6H PRN PO MILD PAIN(1-3)OR ELEVATED TEMP; Start 02/08/19 at 23:00 Insulin Aspart (Novolog Insulin Pen) NOVOLOG *MILD* ALGORITHM WITH MEALS BEDTIME SC Last administered on 02/12/19at 11:56; Admin Dose 1 UNIT; Start 02/09/19 at 08:00 Miscellaneous Information 1 ea NOTE XX ; Start 02/09/19 at 11:00 Glucose (Glutose) 15 gm Q15M PRN PO DECREASED GLUCOSE; Start 02/09/19 at 11:00 Glucose (Glutose) 22.5 gm Q15M PRN PO DECREASED GLUCOSE; Start 02/09/19 at 11:00 Dextrose (D50w Syringe) 25 ml Q15M PRN IV DECREASED GLUCOSE; Start 02/09/19 at 11:00 Dextrose (D50w Syringe) 50 ml Q15M PRN IV DECREASED GLUCOSE; Start 02/09/19 at 11:00 Glucagon (Glucagen) 1 mg Q15M PRN IM DECREASED GLUCOSE; Start 02/09/19 at 11:00 Glucose (Glutose) 15 gm Q15M PRN BUCCAL DECREASED GLUCOSE; Start 02/09/19 at 11:00 Metoprolol Tartrate (Lopressor) 25 mg BID PO Last administered on 02/12/19at 08:36; Admin Dose 25 MG; Start 02/09/19 at 15:30 Acetaminophen (Tylenol Tab) 1,000 mg Q6H PRN PO MILD PAIN(1-3)OR ELEVATED TEMP; Start 02/09/19 at 15:30 Cholecalciferol (Vitamin D) 1,000 unit DAILY PO Last administered on 02/12/19at 08:36; Admin Dose 1,000 UNIT; Start 02/10/19 at 09:00 Gabapentin (Neurontin) 300 mg TID PO Last administered on 02/11/19at 20:15; Admin Dose 300 MG; Start 02/09/19 at 21:00 Acetaminophen/ Hydrocodone Bitart ([place] (5/325)) 1 tab Q6H PRN PO PAIN; Start 02/09/19 at 15:30 Meclizine HCl (Antivert) 25 mg Q6H PRN PO DIZZINESS; Start 02/09/19 at 16:00 Pantoprazole (Protonix Tab) 40 mg DAILY@0600 PO Last administered on 02/12/19at 05:53; Admin Dose 40 MG; Start 02/10/19 at 06:00 Atorvastatin Calcium (Lipitor) 20 mg HS PO Last administered on 02/11/19at 20:15; Admin Dose 20 MG; Start 02/09/19 at 21:00 Meropenem/Sodium Chloride 50 ml @ 100 mls/hr Q12 IVPB Last administered on 02/12/19at 08:35; Admin Dose 100 MLS/HR; Start 02/10/19 at 12:35 Vancomycin HCl (Vanco Iv Per Pharmacy) VANCOMYCIN PER PHARMACY PER PROTOCOL XX ; Start 02/10/19 at 11:30 Vancomycin/Sodium Chloride 250 ml @ 125 mls/hr Q24H IVPB Last administered on 02/11/19at 17:25; Admin Dose 125 MLS/HR; Start 02/11/19 at 17:00 JUANI BAHENA DPM Feb 12, 2019 13:09
--- NOTE | 2019-02-12 17:05 | CONS ---
Assessment/Plan Assessment/Plan Hospital Course (Demo Recall) - h/o diabetic ulcer, gangrene and osteomyelitis of R foot - s/p R 3rd toe amputation, R 4th partial ray resection, excisional debridement and partial wound closure of R foot, and allograft application 02/11/19 - h/o diabetic ulcer and OM of R foot. MRI on 12/31/2018 showed mild bone marrow edema in R 4th toe proximal phalanx which could represent early OM or nonspecific stress reaction. Moderate soft tissue edema without evidence of abscess, suggesting cellulitis. The wound culture on 12/31/2018 grew Enterobacter, Corynebacteria and Stenotrophomonas - severe PAD - h/o R iliofemoral endarterectomy 01/18/2019 - h/o revascularization in the past - T2DM - Hgb A1c 6.8% - CKD - Atrial fib - HR stable - HTN - Mild , mild AR/MR, and mild-mod TR - ACD - h/o mental status change, hallucinations during her admission between 01/09 and 02/08 suspected to be caused by levofloxacin (01/18/2019-01/20/2019). Pt's grandson informed 02/11/19 that her family thought gabapentin caused hallucination then. P t's currently on gabapentin and her mental status appears intact. Therefore, we suspect levofloxacin caused MS change - bacteremia due to Staph spp on 02/08/2019 possible contaminant - enterococci in urine culture on 02/09/19. Pt denies UTI Sx - Allergy to PCN (erythroderma and generalized swelling) and levofloxacin (MS change as above) recommendations: - pending results: superficial culture of the wound 02/10/19 (gram negative bacteria), deep culture from the surgery on 02/11, repeat blood cultures from 02/10, urine culture from 02/09/19, pathology report - continue IV vanc and meropenem. The original plan was 6 week course of antibiotics through 02/15/2019. I will comment on the final date of antibiotic when all the culture results are back - Pt's grandson said that her family had thought gabapentin caused hallucination during her last admission. Pt's currently on gabapentin and her mental status appears intact. Therefore, we suspect levofloxacin caused MS change at that time - the total time I took to care for this Pt today was from 2029 to 1914 Consultation Date/Type/Reason Admit Date/Time Feb 08, 2019 at 20:38 Initial Consult Date 02/10/19 Type of Consult ID Requesting Provider: GONZALEZ ANAYA MD Date/Time of Note DATE: 02/12/19 TIME: 16:57 24 HR Interval Summary Free Text/Dictation was at sleep and so ROS was limited Subjective hx not possible: pt non-verbal Exam/Review of Systems Exam Vitals Vital Signs Date Temp Pulse Resp B/P (MAP) Pulse Ox O2 O2 Flow FiO2 Time Delivery Rate 02/12/19 98.3 85 20 107/60 98 Room Air 15:37 (76) 02/12/19 2.0 07:50 Intake and Output 02/11/19 02/11/19 02/12/19 1515:00 23:00 07:00 IntakeIntake Total 90 ml 1775 ml 1200 ml OutputOutput Total 475 ml 600 ml 1 ml BalanceBalance -385 ml 1175 ml 1199 ml Constitutional: non-verbal, frail Psych: no complaints, nl mood/affect, confusion Head: normocephalic, atraumatic Eyes: nl conjunctiva, nl lids, nl sclera ENMT: nl external ears & nose, nl nasal mucosa & septum, mucosa pink and moist Neck: supple Respiratory: diminished breath sounds Cardiovascular: regular rate and rhythm, nl pulses, edema Gastrointestinal: soft, non-tender, bowel sounds; No tender Genitourinary - Female: other (no supra-pubic tendereness) Musculoskeletal: nl extremities to inspection, nl gait and stance, muscle tone, muscle weakness Extremities: normal pulses, edema Neurological: lethargic Skin: nl turgor; No rash or lesions Lymph: nl lymph nodes Results Result Diagram: 02/11/1916 02/11/19 0516 Results 24hrs Laboratory Tests Test 02/11/19 17:32 02/11/19 20:19 02/12/19 01:54 02/12/19 07:51 Bedside Glucose 112 200 121 93 Test 02/12/19 11:36 Bedside Glucose 152 Medications Medication Current Medications Aspirin (Aspirin) 81 mg DAILY PO Last administered on 02/12/19at 08:36; Admin Dose 81 MG; Start 02/09/19 at 09:00 Acetaminophen/ Hydrocodone Bitart ([place] (5/325)) 1 tab Q6H PRN PO MODERATE PAIN LEVEL 4-6 Last administered on 02/12/19at 05:54; Admin Dose 1 TAB; Start 02/08/19 at 23:00 Morphine Sulfate (morphine) 2 mg Q4H PRN IV SEVERE PAIN LEVEL 7-10; Start 02/08/19 at 23:00 Acetaminophen (Tylenol Tab) 650 mg Q6H PRN PO MILD PAIN(1-3)OR ELEVATED TEMP; Start 02/08/19 at 23:00 Insulin Aspart (Novolog Insulin Pen) NOVOLOG *MILD* ALGORITHM WITH MEALS BEDTIME SC Last administered on 02/12/19at 11:56; Admin Dose 1 UNIT; Start 02/09/19 at 08:00 Miscellaneous Information 1 ea NOTE XX ; Start 02/09/19 at 11:00 Glucose (Glutose) 15 gm Q15M PRN PO DECREASED GLUCOSE; Start 02/09/19 at 11:00 Glucose (Glutose) 22.5 gm Q15M PRN PO DECREASED GLUCOSE; Start 02/09/19 at 11:00 Dextrose (D50w Syringe) 25 ml Q15M PRN IV DECREASED GLUCOSE; Start 02/09/19 at 11:00 Dextrose (D50w Syringe) 50 ml Q15M PRN IV DECREASED GLUCOSE; Start 02/09/19 at 11:00 Glucagon (Glucagen) 1 mg Q15M PRN IM DECREASED GLUCOSE; Start 02/09/19 at 11:00 Glucose (Glutose) 15 gm Q15M PRN BUCCAL DECREASED GLUCOSE; Start 02/09/19 at 11:00 Metoprolol Tartrate (Lopressor) 25 mg BID PO Last administered on 02/12/19at 08:36; Admin Dose 25 MG; Start 02/09/19 at 15:30 Acetaminophen (Tylenol Tab) 1,000 mg Q6H PRN PO MILD PAIN(1-3)OR ELEVATED TEMP; Start 02/09/19 at 15:30 Cholecalciferol (Vitamin D) 1,000 unit DAILY PO Last administered on 02/12/19at 08:36; Admin Dose 1,000 UNIT; Start 02/10/19 at 09:00 Gabapentin (Neurontin) 300 mg TID PO Last administered on 02/11/19at 20:15; Admin Dose 300 MG; Start 02/09/19 at 21:00 Acetaminophen/ Hydrocodone Bitart ([place] (5/325)) 1 tab Q6H PRN PO PAIN; Start 02/09/19 at 15:30 Meclizine HCl (Antivert) 25 mg Q6H PRN PO DIZZINESS; Start 02/09/19 at 16:00 Pantoprazole (Protonix Tab) 40 mg DAILY@0600 PO Last administered on 02/12/19at 05:53; Admin Dose 40 MG; Start 02/10/19 at 06:00 Atorvastatin Calcium (Lipitor) 20 mg HS PO Last administered on 02/11/19at 20:15; Admin Dose 20 MG; Start 02/09/19 at 21:00 Meropenem/Sodium Chloride 50 ml @ 100 mls/hr Q12 IVPB Last administered on 02/12/19at 08:35; Admin Dose 100 MLS/HR; Start 02/10/19 at 12:35 Vancomycin HCl (Vanco Iv Per Pharmacy) VANCOMYCIN PER PHARMACY PER PROTOCOL XX ; Start 02/10/19 at 11:30 Vancomycin/Sodium Chloride 250 ml @ 125 mls/hr Q24H IVPB Last administered on 02/11/19at 17:25; Admin Dose 125 MLS/HR; Start 02/11/19 at 17:00 Miscellaneous Information (*Rx Drug Level Order Reminder*) VANCOMYCIN TROUGH AT 1600 ONCE ONCE XX ; Start 02/13/19 at 16:00; Stop 02/13/19 at 16:01 JAQUELINE HUNTER M.D. Feb 12, 2019 17:05
--- NOTE | 2019-02-12 17:08 | CONS ---
Assessment/Plan Assessment/Plan Hospital Course (Demo Recall) - h/o diabetic ulcer, gangrene and osteomyelitis of R foot - s/p R 3rd toe amputation, R 4th partial ray resection, excisional debridement and partial wound closure of R foot, and allograft application 02/11/19. The superficial wound culture grew stenotrothomonas, which is a probable contaminant - h/o diabetic ulcer and OM of R foot. MRI on 12/31/2018 showed mild bone marrow edema in R 4th toe proximal phalanx which could represent early OM or nonspecific stress reaction. Moderate soft tissue edema without evidence of abscess, suggesting cellulitis. The wound culture on 12/31/2018 grew Ent erobacter, Corynebacteria and Stenotrophomonas. culture on 02/10/2019 grew E. coli - severe PAD - h/o R iliofemoral endarterectomy 01/18/2019 - h/o revascularization in the past - T2DM - Hgb A1c 6.8% - CKD - Atrial fib - HR stable - HTN - Mild , mild AR/MR, and mild-mod TR - ACD - h/o mental status change, hallucinations during her admission between 01/09 and 02/08 suspected to be caused by levofloxacin (01/18/2019-01/20/2019). Pt's grandson informed 02/11/19 that her family thought gabapentin caused hallucination then. Pt's currently on gabapentin and her mental status appears intact. Therefore, we suspect levofloxacin caused MS change - bacteremia due to Staph spp on 02/08/2019 possible contaminant - enterococci in urine culture on 02/09/19. Pt denies UTI Sx - Allergy to PCN (erythroderma and generalized swelling) and levofloxacin (MS change as above) recommendations: - pending results: deep culture from the surgery on 02/11 - continue IV vanc and meropenem. The original plan was 6 week course of antibiotics through 02/15/2019. - Pt's grandson said that her family had thought gabapentin caused hallucination during her last admission. Pt's currently on gabapentin and her mental status a ppears intact. management d/w Pt's daughter in law Consultation Date/Type/Reason Admit Date/Time Feb 08, 2019 at 20:38 Initial Consult Date 02/10/19 Type of Consult ID Requesting Provider: GONZALEZ ANAYA MD Date/Time of Note DATE: 02/12/19 TIME: 17:05 Exam/Review of Systems Exam Vitals Vital Signs Date Temp Pulse Resp B/P (MAP) Pulse Ox O2 O2 Flow FiO2 Time Delivery Rate 02/12/19 98.3 85 20 107/60 98 Room Air 15:37 (76) 02/12/19 2.0 07:50 Intake and Output 02/11/19 02/11/19 02/12/19 1515:00 23:00 07:00 IntakeIntake Total 90 ml 1775 ml 1200 ml OutputOutput Total 475 ml 600 ml 1 ml BalanceBalance -385 ml 1175 ml 1199 ml Results Result Diagram: 02/11/19 0516 02/11/19 0516 Results 24hrs Laboratory Tests Test 02/11/19 17:32 02/11/19 20:19 02/12/19 01:54 02/12/19 07:51 Bedside Glucose 112 200 121 93 Test 02/12/19 11:36 Bedside Glucose 152 Medications Medication Current Medications Aspirin (Aspirin) 81 mg DAILY PO Last administered on 02/12/19at 08:36; Admin Dose 81 MG; Start 02/09/19 at 09:00 Acetaminophen/ Hydrocodone Bitart ([place] (5/325)) 1 tab Q6H PRN PO MODERATE PAIN LEVEL 4-6 Last administered on 02/12/19at 05:54; Admin Dose 1 TAB; Start 02/08/19 at 23:00 Morphine Sulfate (morphine) 2 mg Q4H PRN IV SEVERE PAIN LEVEL 7-10; Start 02/08/19 at 23:00 Acetaminophen (Tylenol Tab) 650 mg Q6H PRN PO MILD PAIN(1-3)OR ELEVATED TEMP; Start 02/08/19 at 23:00 Insulin Aspart (Novolog Insulin Pen) NOVOLOG *MILD* ALGORITHM WITH MEALS BEDTIME SC Last administered on 02/12/19at 11:56; Admin Dose 1 UNIT; Start 02/09/19 at 08:00 Miscellaneous Information 1 ea NOTE XX ; Start 02/09/19 at 11:00 Glucose (Glutose) 15 gm Q15M PRN PO DECREASED GLUCOSE; Start 02/09/19 at 11:00 Glucose (Glutose) 22.5 gm Q15M PRN PO DECREASED GLUCOSE; Start 02/09/19 at 11:00 Dextrose (D50w Syringe) 25 ml Q15M PRN IV DECREASED GLUCOSE; Start 02/09/19 at 11:00 Dextrose (D50w Syringe) 50 ml Q15M PRN IV DECREASED GLUCOSE; Start 02/09/19 at 11:00 Glucagon (Glucagen) 1 mg Q15M PRN IM DECREASED GLUCOSE; Start 02/09/19 at 11:00 Glucose (Glutose) 15 gm Q15M PRN BUCCAL DECREASED GLUCOSE; Start 02/09/19 at 11:00 Metoprolol Tartrate (Lopressor) 25 mg BID PO Last administered on 02/12/19at 08:36; Admin Dose 25 MG; Start 02/09/19 at 15:30 Acetaminophen (Tylenol Tab) 1,000 mg Q6H PRN PO MILD PAIN(1-3)OR ELEVATED TEMP; Start 02/09/19 at 15:30 Cholecalciferol (Vitamin D) 1,000 unit DAILY PO Last administered on 02/12/19at 08:36; Admin Dose 1,000 UNIT; Start 02/10/19 at 09:00 Gabapentin (Neurontin) 300 mg TID PO Last administered on 02/11/19at 20:15; Admin Dose 300 MG; Start 02/09/19 at 21:00 Acetaminophen/ Hydrocodone Bitart ([place] (5/325)) 1 tab Q6H PRN PO PAIN; Start 02/09/19 at 15:30 Meclizine HCl (Antivert) 25 mg Q6H PRN PO DIZZINESS; Start 02/09/19 at 16:00 Pantoprazole (Protonix Tab) 40 mg DAILY@0600 PO Last administered on 02/12/19at 05:53; Admin Dose 40 MG; Start 02/10/19 at 06:00 Atorvastatin Calcium (Lipitor) 20 mg HS PO Last administered on 02/11/19at 20:15; Admin Dose 20 MG; Start 02/09/19 at 21:00 Meropenem/Sodium Chloride 50 ml @ 100 mls/hr Q12 IVPB Last administered on 02/12/19at 08:35; Admin Dose 100 MLS/HR; Start 02/10/19 at 12:35 Vancomycin HCl (Vanco Iv Per Pharmacy) VANCOMYCIN PER PHARMACY PER PROTOCOL XX ; Start 02/10/19 at 11:30 Vancomycin/Sodium Chloride 250 ml @ 125 mls/hr Q24H IVPB Last administered on 02/11/19at 17:25; Admin Dose 125 MLS/HR; Start 02/11/19 at 17:00 Miscellaneous Information (*Rx Drug Level Order Reminder*) VANCOMYCIN TROUGH AT 1600 ONCE ONCE XX ; Start 02/13/19 at 16:00; Stop 02/13/19 at 16:01 JAQUELINE HUNTER M.D. Feb 12, 2019 17:08
[2019-02-12] MEDS: VANCOMYCIN 750 MG (PMX) 250 ML IVPB SCH (17:55)
--- NOTE | 2019-02-12 18:43 | CONS ---
Assessment/Plan Assessment/Plan Hospital Course (Demo Recall) Atrial fibrillation Foot ulcer status post debridement Hypertension Peripheral arterial disease Heart rate trend remained stable No plan for any further procedures, would consider anticoagulation Consultation Date/Type/Reason Admit Date/Time Feb 08, 2019 at 20:38 Initial Consult Date 02/10/19 Type of Consult Cardiology Requesting Provider: GONZALEZ ANAYA MD Date/Time of Note DATE: 02/12/19 TIME: 18:41 24 HR Interval Summary Free Text/Dictation Shortness of breath, palpitations Exam/Review of Systems Vital Signs Vitals Vital Signs Date Temp Pulse Resp B/P (MAP) Pulse Ox O2 O2 Flow FiO2 Time Delivery Rate 02/12/19 98.3 85 20 107/60 98 Room Air 15:37 (76) 02/12/19 2.0 07:50 Intake and Output 02/11/19 02/11/19 02/12/19 1515:00 23:00 07:00 IntakeIntake Total 90 ml 1775 ml 1200 ml OutputOutput Total 475 ml 600 ml 1 ml BalanceBalance -385 ml 1175 ml 1199 ml Exam Constitutional: alert, oriented (Eating dinner, visitor at bedside) Head: normocephalic Respiratory: other (Coarse breath sounds bilaterally, no wheezing) Cardiovascular: irregular rhythm (S1-S2 heard) Gastrointestinal: soft, non-tender, bowel sounds Extremities: other (Bandage lower extremity) Labs Result Diagram: 02/11/19 0516 02/11/19 0516 Results 24hrs Laboratory Tests Test 02/11/19 20:19 02/12/19 01:54 02/12/19 07:51 02/12/19 11:36 Bedside Glucose 200 121 93 152 Test 02/12/19 17:29 Bedside Glucose 115 Medications Medications Current Medications Aspirin (Aspirin) 81 mg DAILY PO Last administered on 02/12/19at 08:36; Admin Dose 81 MG; Start 02/09/19 at 09:00 Acetaminophen/ Hydrocodone Bitart ([place] (5/325)) 1 tab Q6H PRN PO MODERATE PAIN LEVEL 4-6 Last administered on 02/12/19at 05:54; Admin Dose 1 TAB; Start 02/08/19 at 23:00 Morphine Sulfate (morphine) 2 mg Q4H PRN IV SEVERE PAIN LEVEL 7-10; Start 02/08/19 at 23:00 Acetaminophen (Tylenol Tab) 650 mg Q6H PRN PO MILD PAIN(1-3)OR ELEVATED TEMP; Start 02/08/19 at 23:00 Insulin Aspart (Novolog Insulin Pen) NOVOLOG *MILD* ALGORITHM WITH MEALS BEDTIME SC Last administered on 02/12/19at 11:56; Admin Dose 1 UNIT; Start 02/09/19 at 08:00 Miscellaneous Information 1 ea NOTE XX ; Start 02/09/19 at 11:00 Glucose (Glutose) 15 gm Q15M PRN PO DECREASED GLUCOSE; Start 02/09/19 at 11:00 Glucose (Glutose) 22.5 gm Q15M PRN PO DECREASED GLUCOSE; Start 02/09/19 at 11:00 Dextrose (D50w Syringe) 25 ml Q15M PRN IV DECREASED GLUCOSE; Start 02/09/19 at 11:00 Dextrose (D50w Syringe) 50 ml Q15M PRN IV DECREASED GLUCOSE; Start 02/09/19 at 11:00 Glucagon (Glucagen) 1 mg Q15M PRN IM DECREASED GLUCOSE; Start 02/09/19 at 11:00 Glucose (Glutose) 15 gm Q15M PRN BUCCAL DECREASED GLUCOSE; Start 02/09/19 at 11:00 Metoprolol Tartrate (Lopressor) 25 mg BID PO Last administered on 02/12/19at 08:36; Admin Dose 25 MG; Start 02/09/19 at 15:30 Acetaminophen (Tylenol Tab) 1,000 mg Q6H PRN PO MILD PAIN(1-3)OR ELEVATED TEMP; Start 02/09/19 at 15:30 Cholecalciferol (Vitamin D) 1,000 unit DAILY PO Last administered on 02/12/19at 08:36; Admin Dose 1,000 UNIT; Start 02/10/19 at 09:00 Gabapentin (Neurontin) 300 mg TID PO Last administered on 02/11/19at 20:15; Admin Dose 300 MG; Start 02/09/19 at 21:00 Acetaminophen/ Hydrocodone Bitart ([place] (5/325)) 1 tab Q6H PRN PO PAIN; Start 02/09/19 at 15:30 Meclizine HCl (Antivert) 25 mg Q6H PRN PO DIZZINESS; Start 02/09/19 at 16:00 Pantoprazole (Protonix Tab) 40 mg DAILY@0600 PO Last administered on 02/12/19at 05:53; Admin Dose 40 MG; Start 02/10/19 at 06:00 Atorvastatin Calcium (Lipitor) 20 mg HS PO Last administered on 02/11/19at 20:15; Admin Dose 20 MG; Start 02/09/19 at 21:00 Meropenem/Sodium Chloride 50 ml @ 100 mls/hr Q12 IVPB Last administered on 02/12/19at 08:35; Admin Dose 100 MLS/HR; Start 02/10/19 at 12:35 Vancomycin HCl (Vanco Iv Per Pharmacy) VANCOMYCIN PER PHARMACY PER PROTOCOL XX ; Start 02/10/19 at 11:30 Vancomycin/Sodium Chloride 250 ml @ 125 mls/hr Q24H IVPB Last administered on 02/12/19at 17:55; Admin Dose 125 MLS/HR; Start 02/11/19 at 17:00 Miscellaneous Information (*Rx Drug Level Order Reminder*) VANCOMYCIN TROUGH AT 1600 ONCE ONCE XX ; Start 02/13/19 at 16:00; Stop 02/13/19 at 16:01 Omer Burrows DO Feb 12, 2019 18:43
--- NOTE | 2019-02-12 19:28 | PN ---
Date/Time of Note Date/Time of Note DATE: 02/12/19 TIME: 19:25 Assessment/Plan VTE Prophylaxis Risk score (from Ns)>0 risk: 7 SCD applied (from [facility] [place] SCD contraindicated: bilateral LE trauma Pharmacological prophylaxis: other Lines/Catheters IV Catheter Type (from [facility]): PICC Line Central line still needed: Yes Urinary Cath still in place: No Assessment/Plan Hospital Course Patient is sitting in bed eating dinner, remains hemodynamically stable afebrile, atrial fibrillation at controlled rate ,pain is adequately controlled. 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 Dr. Maynard is following and podiatry consultation. Continue antibiotics per ID. Dr. Mata is following in infection disease consultation. -Severe peripheral vascular disease with history of right ileal femoral endarterectomy on 01/18/[address] Allen. -Atrial fibrillation. Dr Nitesh cobb is following in cardiology consultation. -Hypertension -Acute kidney injury on chronic kidney disease. -Anemia of chronic disease -Type 2 diabetes mellitus Further recommendations based on clinical course. Plan of care discussed with Dr. Williamson. Result Diagram: 02/11/19 0516 02/11/19 0516 Results 24hrs Laboratory Tests Test 02/11/19 20:19 02/12/19 01:54 02/12/19 07:51 02/12/19 11:36 Bedside Glucose 200 121 93 152 Test 02/12/19 17:29 Bedside Glucose 115 Exam/Review of Systems Exam Vitals Vital Signs Date Temp Pulse Resp B/P (MAP) Pulse Ox O2 O2 Flow FiO2 Time Delivery Rate 02/12/19 98.3 85 20 107/60 98 Room Air 15:37 (76) 02/12/19 2.0 07:50 Intake and Output 02/11/19 02/11/19 02/12/19 1515:00 23:00 07:00 IntakeIntake Total 90 ml 1775 ml 1200 ml OutputOutput Total 475 ml 600 ml 1 ml BalanceBalance -385 ml 1175 ml 1199 ml Constitutional: alert, oriented Head: normocephalic Neck: supple Respiratory: clear to auscultation Cardiovascular: irregular rhythm Gastrointestinal: soft, non-tender Musculoskeletal: nl extremities to inspection Extremities: normal pulses, other (Right foot dressing) Neurological: nl mental status Results Results 24hrs Laboratory Tests Test 02/11/19 20:19 02/12/19 01:54 02/12/19 07:51 02/12/19 11:36 Bedside Glucose 200 121 93 152 Test 02/12/19 17:29 Bedside Glucose 115 Medications Medication Current Medications Aspirin (Aspirin) 81 mg DAILY PO Last administered on 02/12/19at 08:36; Admin Dose 81 MG; Start 02/09/19 at 09:00 Acetaminophen/ Hydrocodone Bitart ([place] (5/325)) 1 tab Q6H PRN PO MODERATE PAIN LEVEL 4-6 Last administered on 02/12/19at 05:54; Admin Dose 1 TAB; Start 02/08/19 at 23:00 Morphine Sulfate (morphine) 2 mg Q4H PRN IV SEVERE PAIN LEVEL 7-10; Start 02/08/19 at 23:00 Acetaminophen (Tylenol Tab) 650 mg Q6H PRN PO MILD PAIN(1-3)OR ELEVATED TEMP; Start 02/08/19 at 23:00 Insulin Aspart (Novolog Insulin Pen) NOVOLOG *MILD* ALGORITHM WITH MEALS BEDTIME SC Last administered on 02/12/19at 11:56; Admin Dose 1 UNIT; Start 02/09/19 at 08:00 Miscellaneous Information 1 ea NOTE XX ; Start 02/09/19 at 11:00 Glucose (Glutose) 15 gm Q15M PRN PO DECREASED GLUCOSE; Start 02/09/19 at 11:00 Glucose (Glutose) 22.5 gm Q15M PRN PO DECREASED GLUCOSE; Start 02/09/19 at 11:00 Dextrose (D50w Syringe) 25 ml Q15M PRN IV DECREASED GLUCOSE; Start 02/09/19 at 11:00 Dextrose (D50w Syringe) 50 ml Q15M PRN IV DECREASED GLUCOSE; Start 02/09/19 at 11:00 Glucagon (Glucagen) 1 mg Q15M PRN IM DECREASED GLUCOSE; Start 02/09/19 at 11:00 Glucose (Glutose) 15 gm Q15M PRN BUCCAL DECREASED GLUCOSE; Start 02/09/19 at 11:00 Metoprolol Tartrate (Lopressor) 25 mg BID PO Last administered on 02/12/19at 08:36; Admin Dose 25 MG; Start 02/09/19 at 15:30 Acetaminophen (Tylenol Tab) 1,000 mg Q6H PRN PO MILD PAIN(1-3)OR ELEVATED TEMP; Start 02/09/19 at 15:30 Cholecalciferol (Vitamin D) 1,000 unit DAILY PO Last administered on 02/12/19at 08:36; Admin Dose 1,000 UNIT; Start 02/10/19 at 09:00 Gabapentin (Neurontin) 300 mg TID PO Last administered on 02/11/19at 20:15; Admin Dose 300 MG; Start 02/09/19 at 21:00 Acetaminophen/ Hydrocodone Bitart ([place] (5/325)) 1 tab Q6H PRN PO PAIN; Start 02/09/19 at 15:30 Meclizine HCl (Antivert) 25 mg Q6H PRN PO DIZZINESS; Start 02/09/19 at 16:00 Pantoprazole (Protonix Tab) 40 mg DAILY@0600 PO Last administered on 02/12/19at 05:53; Admin Dose 40 MG; Start 02/10/19 at 06:00 Atorvastatin Calcium (Lipitor) 20 mg HS PO Last administered on 02/11/19at 20:15; Admin Dose 20 MG; Start 02/09/19 at 21:00 Meropenem/Sodium Chloride 50 ml @ 100 mls/hr Q12 IVPB Last administered on 02/12/19at 08:35; Admin Dose 100 MLS/HR; Start 02/10/19 at 12:35 Vancomycin HCl (Vanco Iv Per Pharmacy) VANCOMYCIN PER PHARMACY PER PROTOCOL XX ; Start 02/10/19 at 11:30 Vancomycin/Sodium Chloride 250 ml @ 125 mls/hr Q24H IVPB Last administered on 02/12/19at 17:55; Admin Dose 125 MLS/HR; Start 02/11/19 at 17:00 Miscellaneous Information (*Rx Drug Level Order Reminder*) VANCOMYCIN TROUGH AT 1600 ONCE ONCE XX ; Start 02/13/19 at 16:00; Stop 02/13/19 at 16:01 RAULITO CARO Feb 12, 2019 19:28
[2019-02-12] MEDS: ATORVASTATIN 20 MG TAB PO SCH (20:12)
[2019-02-13 00:25] VITALS: BP 107/64; PULSE 80; RESP 20
[2019-02-13 04:10] VITALS: BP 109/68; PULSE 79; RESP 20
[2019-02-13] MEDS: PANTOPRAZOLE (EC) 40 MG TAB PO SCH (05:21)
[2019-02-13 07:12] VITALS: BP 131/62; PULSE 90; RESP 20
[2019-02-13] MEDS: INSULIN ASPART [NOVOLOG] 3 ML PEN SC SCH ×4 (08:00→21:45)
[2019-02-13] MEDS: CHOLECALCIFEROL 1,000 UNIT TAB PO SCH (08:57)
[2019-02-13] MEDS: ASPIRIN 81 MG TAB PO SCH (08:57)
[2019-02-13] MEDS: GABAPENTIN 300 MG CAP PO SCH ×2 (08:58→20:31)
[2019-02-13] MEDS: METOPROLOL 25 MG TAB PO SCH ×2 (08:58→20:38)
[2019-02-13] MEDS: MEROPENEM 1 GM/50ML(PMX) 50 ML IVPB SCH ×2 (09:35→20:35)
[2019-02-13] MEDS: HYDROCODONE/APAP (5/325) TAB PO PRN ×2 (09:38→18:38)
--- NOTE | 2019-02-13 11:36 | PN ---
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 Exam/Review of Systems Vital Signs Vitals Vital Signs Date Temp Pulse Resp B/P (MAP) Pulse Ox O2 O2 Flow FiO2 Time Delivery Rate 02/13/19 98.5 90 20 131/62 91 Room Air 07:12 (85) 02/12/19 2.0 19:15 Intake and Output 02/12/19 02/12/19 02/13/19 1515:00 23:00 07:00 IntakeIntake Total 370 ml 620 ml 200 ml OutputOutput Total 300 ml 201 ml 2 ml BalanceBalance 70 ml 419 ml 198 ml Exam Free Text/Dictation R foot wrapped, no staining Results Result Diagram: 02/13/19 0521 02/13/19 0521 REJI AGUSTIN MD Feb 13, 2019 11:35
[2019-02-13 11:37] VITALS: BP 95/50; PULSE 86; RESP 20
--- NOTE | 2019-02-13 13:17 | CONS ---
Assessment/Plan Assessment/Plan Assessment/Plan (Daily) 1. acute kidney injury on CKD III due to ATN from sepsis and hypotension + prerenal azotemia 2. Acute hyperkalemia due to NATY 3. H/o PVD s/p Right femoral endareterectomy 4. H/o Chronic atrial fibrillation 5. H/o HTN with currently hypotension 6. Anemia of CKD 7. H/o DM II Plan: IV abx meropenem and IV vancomycin , Reanlly dose all abx and monitor electrolytes BUN/Cr went upto 30/1.4- has been off IVF since yesterday, if Cr continues to trend high ,will restart IVF again , magnesium has been repalced for today Metoprolol 25 mg BID will follow up Consultation Date/Type/Reason Admit Date/Time Feb 08, 2019 at 20:38 Initial Consult Date 02/10/19 Type of Consult NEPHROLOGY Requesting Provider: GONZALEZ ANAYA MD Date/Time of Note DATE: 02/13/19 TIME: 13:17 Exam/Review of Systems Exam Vitals Vital Signs Date Temp Pulse Resp B/P (MAP) Pulse Ox O2 O2 Flow FiO2 Time Delivery Rate 02/13/19 98.0 86 20 95/50 (65) 92 Room Air 11:37 02/13/19 2.0 08:00 Intake and Output 02/12/19 02/12/19 02/13/19 1515:00 23:00 07:00 IntakeIntake Total 370 ml 620 ml 200 ml OutputOutput Total 300 ml 201 ml 2 ml BalanceBalance 70 ml 419 ml 198 ml Exam Constitutional: alert, oriented, well developed Respiratory: clear to auscultation Cardiovascular: irregular rhythm; Gastrointestinal: soft, non-tender Musculoskeletal: other (right foot covered in bandage) Extremities: other (absent dp pulse on left) Neurological: nl mental status, nl speech Results Result Diagram: 02/13/1952002/13/19520 Results 24hrs Laboratory Tests Test 02/12/19 17:29 02/12/19 20:06 02/13/19 05:21 02/13/19 07:32 Bedside Glucose 115 160 85 White Blood Count 8.0 Red Blood Count 3.21 L Hemoglobin 8.7 L Hematocrit 29.0 L Mean Corpuscular 90.3 Volume Mean Corpuscular 27.1 L Hemoglobin Mean Corpuscular 30.0 L Hemoglobin Concent Red Cell 14.3 Distribution Width Platelet Count 342 Mean Platelet Volume 9.8 Immature 0.300 Granulocytes % Neutrophils % 62.6 Lymphocytes % 22.4 Monocytes % 8.4 Eosinophils % 5.8 Basophils % 0.5 Nucleated Red Blood 0.0 Cells % Immature 0.020 Granulocytes # Neutrophils # 5.0 Lymphocytes # 1.8 Monocytes # 0.7 Eosinophils # 0.5 Basophils # 0.0 Nucleated Red Blood 0.0 Cells # Prothrombin Time 14.7 Prothrombin Time 1.1 Ratio INR International 1.14 Normalized Ratio Activated 34.5 Partial Thromboplast Time Sodium Level 140 Potassium Level 4.6 Chloride Level 107 Carbon Dioxide Level 27 Anion Gap 6 Blood Urea Nitrogen 30 H Creatinine 1.41 H Est Glomerular Filtrat Rate mL/min Glucose Level 91 Calcium Level 7.9 L Phosphorus Level 3.8 Magnesium Level 1.4 L Total Bilirubin 0.3 Direct Bilirubin 0.00 Indirect Bilirubin 0.3 Aspartate Amino 24 Transf (AST/SGOT) Alanine 20 Aminotransferase (AL T/SGPT) Alkaline Phosphatase 108 Total Protein 5.8 L Albumin 2.6 L Globulin 3.20 Albumin/Globulin 0.81 Ratio Test 02/13/19 11:54 Bedside Glucose 126 Medications Medication Current Medications Aspirin (Aspirin) 81 mg DAILY PO Last administered on 02/13/19at 08:57; Admin Dose 81 MG; Start 02/09/19 at 09:00 Acetaminophen/ Hydrocodone Bitart ([place] (5/325)) 1 tab Q6H PRN PO MODERATE PAIN LEVEL 4-6 Last administered on 02/13/19at 09:38; Admin Dose 1 TAB; Start 02/08/19 at 23:00 Morphine Sulfate (morphine) 2 mg Q4H PRN IV SEVERE PAIN LEVEL 7-10; Start 02/08/19 at 23:00 Acetaminophen (Tylenol Tab) 650 mg Q6H PRN PO MILD PAIN(1-3)OR ELEVATED TEMP; Start 02/08/19 at 23:00 Insulin Aspart (Novolog Insulin Pen) NOVOLOG *MILD* ALGORITHM WITH MEALS BEDTIME SC Last administered on 02/12/19at 11:56; Admin Dose 1 UNIT; Start 02/09/19 at 08:00 Miscellaneous Information 1 ea NOTE XX ; Start 02/09/19 at 11:00 Glucose (Glutose) 15 gm Q15M PRN PO DECREASED GLUCOSE; Start 02/09/19 at 11:00 Glucose (Glutose) 22.5 gm Q15M PRN PO DECREASED GLUCOSE; Start 02/09/19 at 11:00 Dextrose (D50w Syringe) 25 ml Q15M PRN IV DECREASED GLUCOSE; Start 02/09/19 at 11:00 Dextrose (D50w Syringe) 50 ml Q15M PRN IV DECREASED GLUCOSE; Start 02/09/19 at 11:00 Glucagon (Glucagen) 1 mg Q15M PRN IM DECREASED GLUCOSE; Start 02/09/19 at 11:00 Glucose (Glutose) 15 gm Q15M PRN BUCCAL DECREASED GLUCOSE; Start 02/09/19 at 11:00 Metoprolol Tartrate (Lopressor) 25 mg BID PO Last administered on 02/13/19at 08:58; Admin Dose 25 MG; Start 02/09/19 at 15:30 Acetaminophen (Tylenol Tab) 1,000 mg Q6H PRN PO MILD PAIN(1-3)OR ELEVATED TEMP; Start 02/09/19 at 15:30 Cholecalciferol (Vitamin D) 1,000 unit DAILY PO Last administered on 02/13/19at 08:57; Admin Dose 1,000 UNIT; Start 02/10/19 at 09:00 Acetaminophen/ Hydrocodone Bitart ([place] (5/325)) 1 tab Q6H PRN PO PAIN; Start 02/09/19 at 15:30 Meclizine HCl (Antivert) 25 mg Q6H PRN PO DIZZINESS; Start 02/09/19 at 16:00 Pantoprazole (Protonix Tab) 40 mg DAILY@0600 PO Last administered on 02/13/19at 05:21; Admin Dose 40 MG; Start 02/10/19 at 06:00 Atorvastatin Calcium (Lipitor) 20 mg HS PO Last administered on 02/12/19at 20:12; Admin Dose 20 MG; Start 02/09/19 at 21:00 Meropenem/Sodium Chloride 50 ml @ 100 mls/hr Q12 IVPB Last administered on 02/13/19at 09:35; Admin Dose 100 MLS/HR; Start 02/10/19 at 12:35 Vancomycin HCl (Vanco Iv Per Pharmacy) VANCOMYCIN PER PHARMACY PER PROTOCOL XX ; Start 02/10/19 at 11:30 Vancomycin/Sodium Chloride 250 ml @ 125 mls/hr Q24H IVPB Last administered on 02/12/19at 17:55; Admin Dose 125 MLS/HR; Start 02/11/19 at 17:00 Miscellaneous Information (*Rx Drug Level Order Reminder*) VANCOMYCIN TROUGH AT 1600 ONCE ONCE XX ; Start 02/13/19 at 16:00; Stop 02/13/19 at 16:01 Gabapentin (Neurontin) 300 mg QHS PO ; Start 02/13/19 at 21:00 NICOLLE TRAORE MD Feb 13, 2019 13:17
--- NOTE | 2019-02-13 15:04 | PN ---
Date/Time of Note Date/Time of Note DATE: 02/13/19 TIME: 14:55 Assessment/Plan VTE Prophylaxis Risk score (from Ns)>0 risk: 9 SCD applied (from Ns): No SCD contraindicated: low risk/ambulating Pharmacological prophylaxis: other Lines/Catheters IV Catheter Type (from Nrs): PICC Line Central line still needed: Yes Urinary Cath still in place: No Assessment/Plan Hospital Course Patient remains hemodynamically stable, afebrile, atrial fibrillation at controlled rate, pain is adequately controlled, will obtain will replace magnesium, patient is undergoing vascular surgery evaluation. 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 Dr. Maynard is following and podiatry consultation. Continue antibiotics per ID. Dr. Mata is following in infection disease consultation. -Severe peripheral vascular disease with history of right ileal femoral endart erectomy on 01/18/[address] Allen. -Atrial fibrillation. Dr Nitesh cobb is following in cardiology consultation. -Hypertension -Acute kidney injury on chronic kidney disease. -Anemia of chronic disease -Type 2 diabetes mellitus Further recommendations based on clinical course. Plan of care discussed with Dr. Williamson. Result Diagram: 02/13/1952002/13/19520 Results 24hrs Laboratory Tests Test 02/12/19 17:29 02/12/19 20:06 02/13/19 05:21 02/13/19 07:32 Bedside Glucose 115 160 85 White Blood Count 8.0 Red Blood Count 3.21 L Hemoglobin 8.7 L Hematocrit 29.0 L Mean Corpuscular 90.3 Volume Mean Corpuscular 27.1 L Hemoglobin Mean Corpuscular 30.0 L Hemoglobin Concent Red Cell 14.3 Distribution Width Platelet Count 342 Mean Platelet Volume 9.8 Immature 0.300 Granulocytes % Neutrophils % 62.6 Lymphocytes % 22.4 Monocytes % 8.4 Eosinophils % 5.8 Basophils % 0.5 Nucleated Red Blood 0.0 Cells % Immature 0.020 Granulocytes # Neutrophils # 5.0 Lymphocytes # 1.8 Monocytes # 0.7 Eosinophils # 0.5 Basophils # 0.0 Nucleated Red Blood 0.0 Cells # Prothrombin Time 14.7 Prothrombin Time 1.1 Ratio INR International 1.14 Normalized Ratio Activated 34.5 Partial Thromboplast Time Sodium Level 140 Potassium Level 4.6 Chloride Level 107 Carbon Dioxide Level 27 Anion Gap 6 Blood Urea Nitrogen 30 H Creatinine 1.41 H Est Glomerular Filtrat Rate mL/min Glucose Level 91 Calcium Level 7.9 L Phosphorus Level 3.8 Magnesium Level 1.4 L Total Bilirubin 0.3 Direct Bilirubin 0.00 Indirect Bilirubin 0.3 Aspartate Amino 24 Transf (AST/SGOT) Alanine 20 Aminotransferase (AL T/SGPT) Alkaline Phosphatase 108 Total Protein 5.8 L Albumin 2.6 L Globulin 3.20 Albumin/Globulin 0.81 Ratio Test 02/13/19 11:54 Bedside Glucose 126 Exam/Review of Systems Exam Vitals Vital Signs Date Temp Pulse Resp B/P (MAP) Pulse Ox O2 O2 Flow FiO2 Time Delivery Rate 02/13/19 98.0 86 20 95/50 (65) 92 Room Air 11:37 02/13/19 2.0 08:00 Intake and Output 02/12/19 02/12/19 02/13/19 1515:00 23:00 07:00 IntakeIntake Total 370 ml 620 ml 200 ml OutputOutput Total 300 ml 201 ml 2 ml BalanceBalance 70 ml 419 ml 198 ml Exam Constitutional: alert, oriented Head: normocephalic Neck: supple Respiratory: clear to auscultation Cardiovascular: irregular rhythm Gastrointestinal: soft, non-tender Musculoskeletal: nl extremities to inspection Extremities: normal pulses, other (Right foot dressing) Neurological: nl mental status Results Results 24hrs Laboratory Tests Test 02/12/19 17:29 02/12/19 20:06 02/13/19 05:21 02/13/19 07:32 Bedside Glucose 115 160 85 White Blood Count 8.0 Red Blood Count 3.21 L Hemoglobin 8.7 L Hematocrit 29.0 L Mean Corpuscular 90.3 Volume Mean Corpuscular 27.1 L Hemoglobin Mean Corpuscular 30.0 L Hemoglobin Concent Red Cell 14.3 Distribution Width Platelet Count 342 Mean Platelet Volume 9.8 Immature 0.300 Granulocytes % Neutrophils % 62.6 Lymphocytes % 22.4 Monocytes % 8.4 Eosinophils % 5.8 Basophils % 0.5 Nucleated Red Blood 0.0 Cells % Immature 0.020 Granulocytes # Neutrophils # 5.0 Lymphocytes # 1.8 Monocytes # 0.7 Eosinophils # 0.5 Basophils # 0.0 Nucleated Red Blood 0.0 Cells # Prothrombin Time 14.7 Prothrombin Time 1.1 Ratio INR International 1.14 Normalized Ratio Activated 34.5 Partial Thromboplast Time Sodium Level 140 Potassium Level 4.6 Chloride Level 107 Carbon Dioxide Level 27 Anion Gap 6 Blood Urea Nitrogen 30 H Creatinine 1.41 H Est Glomerular Filtrat Rate mL/min Glucose Level 91 Calcium Level 7.9 L Phosphorus Level 3.8 Magnesium Level 1.4 L Total Bilirubin 0.3 Direct Bilirubin 0.00 Indirect Bilirubin 0.3 Aspartate Amino 24 Transf (AST/SGOT) Alanine 20 Aminotransferase (AL T/SGPT) Alkaline Phosphatase 108 Total Protein 5.8 L Albumin 2.6 L Globulin 3.20 Albumin/Globulin 0.81 Ratio Test 02/13/19 11:54 Bedside Glucose 126 Medications Medication Current Medications Aspirin (Aspirin) 81 mg DAILY PO Last administered on 02/13/19at 08:57; Admin Dose 81 MG; Start 02/09/19 at 09:00 Acetaminophen/ Hydrocodone Bitart ([place] (5/325)) 1 tab Q6H PRN PO MODERATE PAIN LEVEL 4-6 Last administered on 02/13/19at 09:38; Admin Dose 1 TAB; Start 02/08/19 at 23:00 Morphine Sulfate (morphine) 2 mg Q4H PRN IV SEVERE PAIN LEVEL 7-10; Start 02/08/19 at 23:00 Acetaminophen (Tylenol Tab) 650 mg Q6H PRN PO MILD PAIN(1-3)OR ELEVATED TEMP; Start 02/08/19 at 23:00 Insulin Aspart (Novolog Insulin Pen) NOVOLOG *MILD* ALGORITHM WITH MEALS BEDTIME SC Last administered on 02/12/19at 11:56; Admin Dose 1 UNIT; Start 02/09/19 at 08:00 Miscellaneous Information 1 ea NOTE XX ; Start 02/09/19 at 11:00 Glucose (Glutose) 15 gm Q15M PRN PO DECREASED GLUCOSE; Start 02/09/19 at 11:00 Glucose (Glutose) 22.5 gm Q15M PRN PO DECREASED GLUCOSE; Start 02/09/19 at 11:00 Dextrose (D50w Syringe) 25 ml Q15M PRN IV DECREASED GLUCOSE; Start 02/09/19 at 11:00 Dextrose (D50w Syringe) 50 ml Q15M PRN IV DECREASED GLUCOSE; Start 02/09/19 at 11:00 Glucagon (Glucagen) 1 mg Q15M PRN IM DECREASED GLUCOSE; Start 02/09/19 at 11:00 Glucose (Glutose) 15 gm Q15M PRN BUCCAL DECREASED GLUCOSE; Start 02/09/19 at 11:00 Metoprolol Tartrate (Lopressor) 25 mg BID PO Last administered on 02/13/19at 08:58; Admin Dose 25 MG; Start 02/09/19 at 15:30 Acetaminophen (Tylenol Tab) 1,000 mg Q6H PRN PO MILD PAIN(1-3)OR ELEVATED TEMP; Start 02/09/19 at 15:30 Cholecalciferol (Vitamin D) 1,000 unit DAILY PO Last administered on 02/13/19at 08:57; Admin Dose 1,000 UNIT; Start 02/10/19 at 09:00 Acetaminophen/ Hydrocodone Bitart ([place] (5/325)) 1 tab Q6H PRN PO PAIN; Start 02/09/19 at 15:30 Meclizine HCl (Antivert) 25 mg Q6H PRN PO DIZZINESS; Start 02/09/19 at 16:00 Pantoprazole (Protonix Tab) 40 mg DAILY@0600 PO Last administered on 02/13/19at 05:21; Admin Dose 40 MG; Start 02/10/19 at 06:00 Atorvastatin Calcium (Lipitor) 20 mg HS PO Last administered on 02/12/19at 20:12; Admin Dose 20 MG; Start 02/09/19 at 21:00 Meropenem/Sodium Chloride 50 ml @ 100 mls/hr Q12 IVPB Last administered on 02/13/19at 09:35; Admin Dose 100 MLS/HR; Start 02/10/19 at 12:35 Vancomycin HCl (Vanco Iv Per Pharmacy) VANCOMYCIN PER PHARMACY PER PROTOCOL XX ; Start 02/10/19 at 11:30 Vancomycin/Sodium Chloride 250 ml @ 125 mls/hr Q24H IVPB Last administered on 02/12/19at 17:55; Admin Dose 125 MLS/HR; Start 02/11/19 at 17:00 Miscellaneous Information (*Rx Drug Level Order Reminder*) VANCOMYCIN TROUGH AT 1600 ONCE ONCE XX ; Start 02/13/19 at 16:00; Stop 02/13/19 at 16:01 Gabapentin (Neurontin) 300 mg QHS PO ; Start 02/13/19 at 21:00 RAULITO CARO Feb 13, 2019 15:04
[2019-02-13 15:11] VITALS: BP 106/59; PULSE 80; RESP 20
[2019-02-13] MEDS ORDERED: MAGNESIUM SULFATE 2 GM/50 ML 50 ML IVPB ONE (15:30)
--- NOTE | 2019-02-13 15:46 | CONS ---
Assessment/Plan Assessment/Plan Hospital Course (Demo Recall) - h/o diabetic ulcer, gangrene and osteomyelitis of R foot - s/p R 3rd toe amputation, R 4th partial ray resection, excisional debridement and partial wound closure of R foot, and allograft application 02/11/19. The superficial wound culture grew stenotrothomonas, which is a probable contaminant - h/o diabetic ulcer and OM of R foot. MRI on 12/31/2018 showed mild bone marrow edema in R 4th toe proximal phalanx which could represent early OM or nonspecific stress reaction. Moderate soft tissue edema without evidence of abscess, suggesting cellulitis. The wound culture on 12/31/2018 grew Ent erobacter, Corynebacteria and Stenotrophomonas. culture on 02/10/2019 grew E. coli - severe PAD - h/o R iliofemoral endarterectomy 01/18/2019 - h/o revascularization in the past - T2DM - Hgb A1c 6.8% - CKD - Atrial fib - HR stable - HTN - Mild , mild AR/MR, and mild-mod TR - ACD - h/o mental status change, hallucinations during her admission between 01/09 and 02/08 suspected to be caused by levofloxacin (01/18/2019-01/20/2019). Pt's grandson informed 02/11/19 that her family thought gabapentin caused hallucination then. Pt's currently on gabapentin and her mental status appears intact. Therefore, we suspect levofloxacin caused MS change - bacteremia due to Staph spp on 02/08/2019 possible contaminant - VRE in urine culture on 02/09/19. Pt denies UTI Sx, a colonizer - Allergy to PCN (erythroderma and generalized swelling) and levofloxacin (MS change as above) recommendations: - pending results: deep culture from the surgery on 02/11 (no growth so far) - continue meropenem. The original plan was 6 week course of antibiotics through 02/15/2019 - will d/c vancomycin due to rising GFR management d/w Pt and her son Consultation Date/Type/Reason Admit Date/Time Feb 08, 2019 at 20:38 Initial Consult Date 02/10/19 Type of Consult ID Requesting Provider: GONZALEZ ANAYA MD Date/Time of Note DATE: 02/13/19 TIME: 15:40 24 HR Interval Summary Constitutional: improved Detailed Summary Eyes: no complaints ENT: no complaints Respiratory: no complaints Cardiovascular: no complaints Gastrointestinal: no complaints Genitourinary: no complaints Musculoskeletal: restricted range of motion; No bone/joint pain Skin: no complaints Neurologic: no complaints Exam/Review of Systems Exam Vitals Vital Signs Date Temp Pulse Resp B/P (MAP) Pulse Ox O2 O2 Flow FiO2 Time Delivery Rate 02/13/19 97.7 80 20 106/59 91 Room Air 15:11 (75) 02/13/19 2.0 08:00 Intake and Output 02/12/19 02/12/19 02/13/19 1515:00 23:00 07:00 IntakeIntake Total 370 ml 620 ml 200 ml OutputOutput Total 300 ml 201 ml 2 ml BalanceBalance 70 ml 419 ml 198 ml Constitutional: frail Psych: no complaints, nl mood/affect Head: normocephalic, atraumatic Eyes: nl conjunctiva, nl lids, nl sclera ENMT: nl external ears & nose, nl nasal mucosa & septum, mucosa pink and moist Neck: non-tender Respiratory: clear to auscultation, normal air movement Cardiovascular: regular rate and rhythm, nl pulses Gastrointestinal: soft, non-tender; No distended, No tender Musculoskeletal: other (R foot is dressed c/d/i) Extremities: normal pulses Neurological: nl mental status Results Result Diagram: 02/13/1952002/13/19 0521 Results 24hrs Laboratory Tests Test 02/12/19 17:29 02/12/19 20:06 02/13/19 05:21 02/13/19 07:32 Bedside Glucose 115 160 85 White Blood Count 8.0 Red Blood Count 3.21 L Hemoglobin 8.7 L Hematocrit 29.0 L Mean Corpuscular 90.3 Volume Mean Corpuscular 27.1 L Hemoglobin Mean Corpuscular 30.0 L Hemoglobin Concent Red Cell 14.3 Distribution Width Platelet Count 342 Mean Platelet Volume 9.8 Immature 0.300 Granulocytes % Neutrophils % 62.6 Lymphocytes % 22.4 Monocytes % 8.4 Eosinophils % 5.8 Basophils % 0.5 Nucleated Red Blood 0.0 Cells % Immature 0.020 Granulocytes # Neutrophils # 5.0 Lymphocytes # 1.8 Monocytes # 0.7 Eosinophils # 0.5 Basophils # 0.0 Nucleated Red Blood 0.0 Cells # Prothrombin Time 14.7 Prothrombin Time 1.1 Ratio INR International 1.14 Normalized Ratio Activated 34.5 Partial Thromboplast Time Sodium Level 140 Potassium Level 4.6 Chloride Level 107 Carbon Dioxide Level 27 Anion Gap 6 Blood Urea Nitrogen 30 H Creatinine 1.41 H Est Glomerular Filtrat Rate mL/min Glucose Level 91 Calcium Level 7.9 L Phosphorus Level 3.8 Magnesium Level 1.4 L Total Bilirubin 0.3 Direct Bilirubin 0.00 Indirect Bilirubin 0.3 Aspartate Amino 24 Transf (AST/SGOT) Alanine 20 Aminotransferase (AL T/SGPT) Alkaline Phosphatase 108 Total Protein 5.8 L Albumin 2.6 L Globulin 3.20 Albumin/Globulin 0.81 Ratio Test 02/13/19 11:54 Bedside Glucose 126 Medications Medication Current Medications Aspirin (Aspirin) 81 mg DAILY PO Last administered on 02/13/19at 08:57; Admin Dose 81 MG; Start 02/09/19 at 09:00 Acetaminophen/ Hydrocodone Bitart ([place] (5/325)) 1 tab Q6H PRN PO MODERATE P AIN LEVEL 4-6 Last administered on 02/13/19at 09:38; Admin Dose 1 TAB; Start 02/08/19 at 23:00 Morphine Sulfate (morphine) 2 mg Q4H PRN IV SEVERE PAIN LEVEL 7-10; Start 02/08/19 at 23:00 Acetaminophen (Tylenol Tab) 650 mg Q6H PRN PO MILD PAIN(1-3)OR ELEVATED TEMP; Start 02/08/19 at 23:00 Insulin Aspart (Novolog Insulin Pen) NOVOLOG *MILD* ALGORITHM WITH MEALS BEDTIME SC Last administered on 02/12/19at 11:56; Admin Dose 1 UNIT; Start 02/09/19 at 08:00 Miscellaneous Information 1 ea NOTE XX ; Start 02/09/19 at 11:00 Glucose (Glutose) 15 gm Q15M PRN PO DECREASED GLUCOSE; Start 02/09/19 at 11:00 Glucose (Glutose) 22.5 gm Q15M PRN PO DECREASED GLUCOSE; Start 02/09/19 at 11:00 Dextrose (D50w Syringe) 25 ml Q15M PRN IV DECREASED GLUCOSE; Start 02/09/19 at 11:00 Dextrose (D50w Syringe) 50 ml Q15M PRN IV DECREASED GLUCOSE; Start 02/09/19 at 11:00 Glucagon (Glucagen) 1 mg Q15M PRN IM DECREASED GLUCOSE; Start 02/09/19 at 11:00 Glucose (Glutose) 15 gm Q15M PRN BUCCAL DECREASED GLUCOSE; Start 02/09/19 at 11:00 Metoprolol Tartrate (Lopressor) 25 mg BID PO Last administered on 02/13/19at 08 :58; Admin Dose 25 MG; Start 02/09/19 at 15:30 Acetaminophen (Tylenol Tab) 1,000 mg Q6H PRN PO MILD PAIN(1-3)OR ELEVATED TEMP; Start 02/09/19 at 15:30 Cholecalciferol (Vitamin D) 1,000 unit DAILY PO Last administered on 02/13/19at 08:57; Admin Dose 1,000 UNIT; Start 02/10/19 at 09:00 Acetaminophen/ Hydrocodone Bitart ([place] (5/325)) 1 tab Q6H PRN PO PAIN; Start 02/09/19 at 15:30 Meclizine HCl (Antivert) 25 mg Q6H PRN PO DIZZINESS; Start 02/09/19 at 16:00 Pantoprazole (Protonix Tab) 40 mg DAILY@0600 PO Last administered on 02/13/19at 05:21; Admin Dose 40 MG; Start 02/10/19 at 06:00 Atorvastatin Calcium (Lipitor) 20 mg HS PO Last administered on 02/12/19at 20:12; Admin Dose 20 MG; Start 02/09/19 at 21:00 Meropenem/Sodium Chloride 50 ml @ 100 mls/hr Q12 IVPB Last administered on 02/13/19at 09:35; Admin Dose 100 MLS/HR; Start 02/10/19 at 12:35 Vancomycin HCl (Vanco Iv Per Pharmacy) VANCOMYCIN PER PHARMACY PER PROTOCOL XX ; Start 02/10/19 at 11:30 Vancomycin/Sodium Chloride 250 ml @ 125 mls/hr Q24H IVPB Last administered on 02/12/19at 17:55; Admin Dose 125 MLS/HR; Start 02/11/19 at 17:00 Miscellaneous Information (*Rx Drug Level Order Reminder*) VANCOMYCIN TROUGH AT 1600 ONCE ONCE XX ; Start 02/13/19 at 16:00; Stop 02/13/19 at 16:01 Gabapentin (Neurontin) 300 mg QHS PO ; Start 02/13/19 at 21:00 Magnesium Sulfate 50 ml @ 25 mls/hr ONCE ONCE IVPB ; Start 02/13/19 at 15:30; Stop 02/13/19 at 17:29 JAQUELINE HUNTER M.D. Feb 13, 2019 15:46
--- NOTE | 2019-02-13 17:31 | CONS ---
Assessment/Plan Assessment/Plan Hospital Course (Demo Recall) Atrial fibrillation Foot ulcer status post debridement Hypertension Peripheral arterial disease Heart rate trend remained stable If no plan for any further procedures, would consider anticoagulation Consultation Date/Type/Reason Admit Date/Time Feb 08, 2019 at 20:38 Initial Consult Date 02/10/19 Type of Consult Cardiology Requesting Provider: GONZALEZ ANAYA MD Date/Time of Note DATE: 02/13/19 TIME: 17:30 24 HR Interval Summary Free Text/Dictation no sob,cp,palp Exam/Review of Systems Vital Signs Vitals Vital Signs Date Temp Pulse Resp B/P (MAP) Pulse Ox O2 O2 Flow FiO2 Time Delivery Rate 02/13/19 97.7 80 20 106/59 91 Room Air 15:11 (75) 02/13/19 2.0 08:00 Intake and Output 02/12/19 02/12/19 02/13/19 1515:00 23:00 07:00 IntakeIntake Total 370 ml 620 ml 200 ml OutputOutput Total 300 ml 201 ml 2 ml BalanceBalance 70 ml 419 ml 198 ml Exam Constitutional: alert, oriented Head: normocephalic Respiratory: other (course bs, no wheeze) Cardiovascular: irregular rhythm (s1s2) Gastrointestinal: soft, non-tender, bowel sounds Extremities: edema Labs Result Diagram: 02/13/19 0521 02/13/19 0521 Results 24hrs Laboratory Tests Test 02/12/19 20:06 02/13/19 05:21 02/13/19 07:32 02/13/19 11:54 Bedside Glucose 160 85 126 White Blood Count 8.0 Red Blood Count 3.21 L Hemoglobin 8.7 L Hematocrit 29.0 L Mean Corpuscular 90.3 Volume Mean Corpuscular 27.1 L Hemoglobin Mean Corpuscular 30.0 L Hemoglobin Concent Red Cell 14.3 Distribution Width Platelet Count 342 Mean Platelet Volume 9.8 Immature 0.300 Granulocytes % Neutrophils % 62.6 Lymphocytes % 22.4 Monocytes % 8.4 Eosinophils % 5.8 Basophils % 0.5 Nucleated Red Blood 0.0 Cells % Immature 0.020 Granulocytes # Neutrophils # 5.0 Lymphocytes # 1.8 Monocytes # 0.7 Eosinophils # 0.5 Basophils # 0.0 Nucleated Red Blood 0.0 Cells # Prothrombin Time 14.7 Prothrombin Time 1.1 Ratio INR International 1.14 Normalized Ratio Activated 34.5 Partial Thromboplast Time Sodium Level 140 Potassium Level 4.6 Chloride Level 107 Carbon Dioxide Level 27 Anion Gap 6 Blood Urea Nitrogen 30 H Creatinine 1.41 H Est Glomerular Filtrat Rate mL/min Glucose Level 91 Calcium Level 7.9 L Phosphorus Level 3.8 Magnesium Level 1.4 L Total Bilirubin 0.3 Direct Bilirubin 0.00 Indirect Bilirubin 0.3 Aspartate Amino 24 Transf (AST/SGOT) Alanine 20 Aminotransferase (AL T/SGPT) Alkaline Phosphatase 108 Total Protein 5.8 L Albumin 2.6 L Globulin 3.20 Albumin/Globulin 0.81 Ratio Test 02/13/19 17:10 Bedside Glucose 94 Medications Medications Current Medications Aspirin (Aspirin) 81 mg DAILY PO Last administered on 02/13/19at 08:57; Admin Dose 81 MG; Start 02/09/19 at 09:00 Acetaminophen/ Hydrocodone Bitart ([place] (5/325)) 1 tab Q6H PRN PO MODERATE PAIN LEVEL 4-6 Last administered on 02/13/19at 09:38; Admin Dose 1 TAB; Start 02/08/19 at 23:00 Morphine Sulfate (morphine) 2 mg Q4H PRN IV SEVERE PAIN LEVEL 7-10; Start 02/08/19 at 23:00 Acetaminophen (Tylenol Tab) 650 mg Q6H PRN PO MILD PAIN(1-3)OR ELEVATED TEMP; Start 02/08/19 at 23:00 Insulin Aspart (Novolog Insulin Pen) NOVOLOG *MILD* ALGORITHM WITH MEALS BEDTIME SC Last administered on 02/12/19at 11:56; Admin Dose 1 UNIT; Start 02/09/19 at 08:00 Miscellaneous Information 1 ea NOTE XX ; Start 02/09/19 at 11:00 Glucose (Glutose) 15 gm Q15M PRN PO DECREASED GLUCOSE; Start 02/09/19 at 11:00 Glucose (Glutose) 22.5 gm Q15M PRN PO DECREASED GLUCOSE; Start 02/09/19 at 11:00 Dextrose (D50w Syringe) 25 ml Q15M PRN IV DECREASED GLUCOSE; Start 02/09/19 at 11:00 Dextrose (D50w Syringe) 50 ml Q15M PRN IV DECREASED GLUCOSE; Start 02/09/19 at 11:00 Glucagon (Glucagen) 1 mg Q15M PRN IM DECREASED GLUCOSE; Start 02/09/19 at 11:00 Glucose (Glutose) 15 gm Q15M PRN BUCCAL DECREASED GLUCOSE; Start 02/09/19 at 11:00 Metoprolol Tartrate (Lopressor) 25 mg BID PO Last administered on 02/13/19at 08:58; Admin Dose 25 MG; Start 02/09/19 at 15:30 Acetaminophen (Tylenol Tab) 1,000 mg Q6H PRN PO MILD PAIN(1-3)OR ELEVATED TEMP; Start 02/09/19 at 15:30 Cholecalciferol (Vitamin D) 1,000 unit DAILY PO Last administered on 02/13/19at 08:57; Admin Dose 1,000 UNIT; Start 02/10/19 at 09:00 Acetaminophen/ Hydrocodone Bitart ([place] (5/325)) 1 tab Q6H PRN PO PAIN; Start 02/09/19 at 15:30 Meclizine HCl (Antivert) 25 mg Q6H PRN PO DIZZINESS; Start 02/09/19 at 16:00 Pantoprazole (Protonix Tab) 40 mg DAILY@0600 PO Last administered on 02/13/19at 05:21; Admin Dose 40 MG; Start 02/10/19 at 06:00 Atorvastatin Calcium (Lipitor) 20 mg HS PO Last administered on 02/12/19at 20:12; Admin Dose 20 MG; Start 02/09/19 at 21:00 Meropenem/Sodium Chloride 50 ml @ 100 mls/hr Q12 IVPB Last administered on 02/13/19at 09:35; Admin Dose 100 MLS/HR; Start 02/10/19 at 12:35 Gabapentin (Neurontin) 300 mg QHS PO ; Start 02/13/19 at 21:00 Omer Burrows DO Feb 13, 2019 17:31
[2019-02-13 20:19] VITALS: BP 98/63; PULSE 88; RESP 20
[2019-02-13] MEDS: ATORVASTATIN 20 MG TAB PO SCH (20:31)
[2019-02-14 00:08] VITALS: BP 87/51; PULSE 73; RESP 20
[2019-02-14 04:03] VITALS: BP 106/58; PULSE 67; RESP 20
[2019-02-14] MEDS: PANTOPRAZOLE (EC) 40 MG TAB PO SCH (05:46)
[2019-02-14] MEDS: INSULIN ASPART [NOVOLOG] 3 ML PEN SC SCH ×4 (08:00→21:00)
[2019-02-14 08:53] VITALS: BP 109/63; PULSE 73; RESP 20
[2019-02-14] MEDS: ASPIRIN 81 MG TAB PO SCH (09:22)
[2019-02-14] MEDS: CHOLECALCIFEROL 1,000 UNIT TAB PO SCH (09:22)
[2019-02-14] MEDS: METOPROLOL 25 MG TAB PO SCH ×2 (09:22→21:15)
[2019-02-14] MEDS: MEROPENEM 1 GM/50ML(PMX) 50 ML IVPB SCH ×2 (09:23→21:15)
[2019-02-14] MEDS ORDERED: NA POLYST SULFON 15 GM/60 ML BTL PO SCH (10:15)
--- NOTE | 2019-02-14 11:05 | CONS ---
Assessment/Plan Assessment/Plan Assessment/Plan (Daily) 1. acute kidney injury on CKD III due to ATN from sepsis and hypotension + prerenal azotemia 2. Acute hyperkalemia due to NATY 3. H/o PVD s/p Right femoral endareterectomy 4. H/o Chronic atrial fibrillation 5. H/o HTN with currently hypotension 6. Anemia of CKD 7. H/o DM II Plan: IV abx meropenem and IV vancomycin , Reanlly dose all abx and monitor electrolytes BUN/Cr went upto 38/1.45, K 5.4- kayexalate 15 gram PO x 1dose now pt has been off IVF since yesterday, if Cr continues to trend high ,will restart IVF again Metoprolol 25 mg BID will follow up Consultation Date/Type/Reason Admit Date/Time Feb 08, 2019 at 20:38 Initial Consult Date 02/10/19 Type of Consult NEPHROLOGY Requesting Provider: GONZALEZ ANAYA MD Date/Time of Note DATE: 02/14/19 TIME: 11:04 Exam/Review of Systems Exam Vitals Vital Signs Date Temp Pulse Resp B/P (MAP) Pulse Ox O2 O2 Flow FiO2 Time Delivery Rate 02/14/19 97.4 73 20 109/63 98 Nasal 08:53 (78) Cannula 02/14/19 2.0 08:00 Intake and Output 02/13/19 02/13/19 02/14/19 1414:59 22:59 06:59 IntakeIntake Total 530 ml 240 ml 200 ml OutputOutput Total 200 ml 400 ml BalanceBalance 330 ml -160 ml 200 ml Exam Constitutional: alert, oriented, well developed Respiratory: clear to auscultation Cardiovascular: irregular rhythm; Gastrointestinal: soft, non-tender Musculoskeletal: other (right foot covered in bandage) Extremities: other (absent dp pulse on left) Neurological: nl mental status, nl speech Results Result Diagram: 02/14/19 0527 02/14/19526 Results 24hrs Laboratory Tests Test 02/13/19 11:54 02/13/19 17:10 02/13/19 20:46 02/14/19 02:43 Bedside Glucose 126 94 232 H 112 Test 02/14/19 05:27 02/14/19 08:05 White Blood Count 8.3 Red Blood Count 3.08 L Hemoglobin 8.4 L Hematocrit 28.5 L Mean Corpuscular 92.5 Volume Mean Corpuscular 27.3 L Hemoglobin Mean Corpuscular 29.5 L Hemoglobin Concent Red Cell 14.6 H Distribution Width Platelet Count 339 Mean Platelet Volume 10.2 Immature 0.500 H Granulocytes % Neutrophils % 58.9 Lymphocytes % 23.1 Monocytes % 10.6 Eosinophils % 6.2 Basophils % 0.7 Nucleated Red Blood 0.0 Cells % Immature 0.040 H Granulocytes # Neutrophils # 4.9 Lymphocytes # 1.9 Monocytes # 0.9 Eosinophils # 0.5 Basophils # 0.1 Nucleated Red Blood 0.0 Cells # Sodium Level 134 L Potassium Level 5.4 H Chloride Level 104 Carbon Dioxide Level 25 Anion Gap 5 Blood Urea Nitrogen 38 H Creatinine 1.45 H Est Glomerular Filtrat Rate mL/min Glucose Level 89 Calcium Level 7.9 L Magnesium Level 1.9 Bedside Glucose 82 Medications Medication Current Medications Aspirin (Aspirin) 81 mg DAILY PO Last administered on 02/14/19at 09:22; Admin Dose 81 MG; Start 02/09/19 at 09:00 Acetaminophen/ Hydrocodone Bitart ([place] (5/325)) 1 tab Q6H PRN PO MODERATE PAIN LEVEL 4-6 Last administered on 02/13/19at 18:38; Admin Dose 1 TAB; Start 02/08/19 at 23:00 Morphine Sulfate (morphine) 2 mg Q4H PRN IV SEVERE PAIN LEVEL 7-10; Start 02/08/19 at 23:00 Acetaminophen (Tylenol Tab) 650 mg Q6H PRN PO MILD PAIN(1-3)OR ELEVATED TEMP; Start 02/08/19 at 23:00 Insulin Aspart (Novolog Insulin Pen) NOVOLOG *MILD* ALGORITHM WITH MEALS BEDTIME SC Last administered on 02/13/19at 21:45; Admin Dose 2 UNIT; Start 02/09/19 at 08:00 Miscellaneous Information 1 ea NOTE XX ; Start 02/09/19 at 11:00 Glucose (Glutose) 15 gm Q15M PRN PO DECREASED GLUCOSE; Start 02/09/19 at 11:00 Glucose (Glutose) 22.5 gm Q15M PRN PO DECREASED GLUCOSE; Start 02/09/19 at 11:00 Dextrose (D50w Syringe) 25 ml Q15M PRN IV DECREASED GLUCOSE; Start 02/09/19 at 11:00 Dextrose (D50w Syringe) 50 ml Q15M PRN IV DECREASED GLUCOSE; Start 02/09/19 at 11:00 Glucagon (Glucagen) 1 mg Q15M PRN IM DECREASED GLUCOSE; Start 02/09/19 at 11:00 Glucose (Glutose) 15 gm Q15M PRN BUCCAL DECREASED GLUCOSE; Start 02/09/19 at 11:00 Metoprolol Tartrate (Lopressor) 25 mg BID PO Last administered on 02/14/19 09:22; Admin Dose 25 MG; Start 02/09/19 at 15:30 Acetaminophen (Tylenol Tab) 1,000 mg Q6H PRN PO MILD PAIN(1-3)OR ELEVATED TEMP; Start 02/09/19 at 15:30 Cholecalciferol (Vitamin D) 1,000 unit DAILY PO Last administered on 02/14/19 09:22; Admin Dose 1,000 UNIT; Start 02/10/19 at 09:00 Acetaminophen/ Hydrocodone Bitart ([place] (5/325)) 1 tab Q6H PRN PO PAIN; Start 02/09/19 at 15:30 Meclizine HCl (Antivert) 25 mg Q6H PRN PO DIZZINESS; Start 02/09/19 at 16:00 Pantoprazole (Protonix Tab) 40 mg DAILY@0600 PO Last administered on 02/14/19 05:46; Admin Dose 40 MG; Start 02/10/19 at 06:00 Atorvastatin Calcium (Lipitor) 20 mg HS PO Last administered on 02/13/19 20:31; Admin Dose 20 MG; Start 02/09/19 at 21:00 Meropenem/Sodium Chloride 50 ml @ 100 mls/hr Q12 IVPB Last administered on 02/14/19 09:23; Admin Dose 100 MLS/HR; Start 02/10/19 at 12:35 Gabapentin (Neurontin) 300 mg QHS PO Last administered on 02/13/19 20:31; Admin Dose 300 MG; Start 02/13/19 at 21:00 NIOCLLE TRAORE MD Feb 14, 2019 11:04
[2019-02-14 11:36] VITALS: BP 91/51; RESP 22
[2019-02-14 14:47] VITALS: BP 97/53; PULSE 77; RESP 22
--- NOTE | 2019-02-14 14:56 | PN ---
Date/Time of Note Date/Time of Note DATE: 02/14/19 TIME: 14:42 Assessment/Plan VTE Prophylaxis Risk score (from Ns)>0 risk: 7 SCD applied (from [facility] [place]): No SCD contraindicated: bilateral LE trauma Pharmacological prophylaxis: apixaban Lines/Catheters IV C[facility]ter Type (from [facility]): PICC Line Central line still needed: Yes Urinary Cath still in place: No Assessment/Plan Hospital Course Patient remains hemodynamically stable currently on meropenem, afebrile. Since no surgical procedure planned we will start patient on Eliquis for atrial fibr illation, continue telemetry monitoring. Potassium is 5.4 status post Kayexalate, continue to monitor renal function and electrolytes. 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 Dr. Maynard is following and podiatry consultation. Continue antibiotics per ID. Dr. Mata is following in infection disease consultation. -Severe peripheral vascular disease with history of right ileal femoral endarterectomy on 01/18/[address] Allen. -Atrial fibrillation. Continue metoprolol, start Eliquis. Dr. Burrows is f ollowing in cardiology consultation. -Hypertension -Acute kidney injury on chronic kidney disease. -Anemia of chronic disease -Type 2 diabetes mellitus Further recommendations based on clinical course. Plan of care discussed with Dr. Williamson. Result Diagram: 02/14/1952602/14/19526 Results 24hrs Laboratory Tests Test 02/13/19 17:10 02/13/19 20:46 02/14/19 02:43 02/14/19 05:27 Bedside Glucose 94 232 H 112 White Blood Count 8.3 Red Blood Count 3.08 L Hemoglobin 8.4 L Hematocrit 28.5 L Mean Corpuscular 92.5 Volume Mean Corpuscular 27.3 L Hemoglobin Mean Corpuscular 29.5 L Hemoglobin Concent Red Cell 14.6 H Distribution Width Platelet Count 339 Mean Platelet Volume 10.2 Immature 0.500 H Granulocytes % Neutrophils % 58.9 Lymphocytes % 23.1 Monocytes % 10.6 Eosinophils % 6.2 Basophils % 0.7 Nucleated Red Blood 0.0 Cells % Immature 0.040 H Granulocytes # Neutrophils # 4.9 Lymphocytes # 1.9 Monocytes # 0.9 Eosinophils # 0.5 Basophils # 0.1 Nucleated Red Blood 0.0 Cells # Sodium Level 134 L Potassium Level 5.4 H Chloride Level 104 Carbon Dioxide Level 25 Anion Gap 5 Blood Urea Nitrogen 38 H Creatinine 1.45 H Est Glomerular Filtrat Rate mL/min Glucose Level 89 Calcium Level 7.9 L Magnesium Level 1.9 Test 02/14/19 08:05 02/14/19 12:12 Bedside Glucose 82 108 Exam/Review of Systems Exam Vitals Vital Signs Date Temp Pulse Resp B/P (MAP) Pulse Ox O2 O2 Flow FiO2 Time Delivery Rate 02/14/19 98.0 22 91/51 (64) 96 Room Air 11:36 02/14/19 73 08:53 02/14/19 2.0 08:00 Intake and Output 02/13/19 02/13/19 02/14/19 1515:00 23:00 07:00 IntakeIntake Total 530 ml 240 ml 200 ml OutputOutput Total 200 ml 400 ml BalanceBalance 330 ml -160 ml 200 ml Exam Constitutional: alert, oriented Respiratory: clear to auscultation Cardiovascular: irregular rhythm Gastrointestinal: soft, non-tender Musculoskeletal: nl extremities to inspection Extremities: normal pulses, other (Right foot dressing) Neurological: nl mental status Results Results 24hrs Laboratory Tests Test 02/13/19 17:10 02/13/19 20:46 02/14/19 02:43 02/14/19 05:27 Bedside Glucose 94 232 H 112 White Blood Count 8.3 Red Blood Count 3.08 L Hemoglobin 8.4 L Hematocrit 28.5 L Mean Corpuscular 92.5 Volume Mean Corpuscular 27.3 L Hemoglobin Mean Corpuscular 29.5 L Hemoglobin Concent Red Cell 14.6 H Distribution Width Platelet Count 339 Mean Platelet Volume 10.2 Immature 0.500 H Granulocytes % Neutrophils % 58.9 Lymphocytes % 23.1 Monocytes % 10.6 Eosinophils % 6.2 Basophils % 0.7 Nucleated Red Blood 0.0 Cells % Immature 0.040 H Granulocytes # Neutrophils # 4.9 Lymphocytes # 1.9 Monocytes # 0.9 Eosinophils # 0.5 Basophils # 0.1 Nucleated Red Blood 0.0 Cells # Sodium Level 134 L Potassium Level 5.4 H Chloride Level 104 Carbon Dioxide Level 25 Anion Gap 5 Blood Urea Nitrogen 38 H Creatinine 1.45 H Est Glomerular Filtrat Rate mL/min Glucose Level 89 Calcium Level 7.9 L Magnesium Level 1.9 Test 02/14/19 08:05 02/14/19 12:12 Bedside Glucose 82 108 Medications Medication Current Medications Aspirin (Aspirin) 81 mg DAILY PO Last administered on 02/14/19at 09:22; Admin Dose 81 MG; Start 02/09/19 at 09:00 Acetaminophen/ Hydrocodone Bitart ([place] (5/325)) 1 tab Q6H PRN PO MODERATE PAIN LEVEL 4-6 Last administered on 02/13/19at 18:38; Admin Dose 1 TAB; Start 02/08/19 at 23:00 Morphine Sulfate (morphine) 2 mg Q4H PRN IV SEVERE PAIN LEVEL 7-10; Start 02/08/19 at 23:00 Acetaminophen (Tylenol Tab) 650 mg Q6H PRN PO MILD PAIN(1-3)OR ELEVATED TEMP; Start 02/08/19 at 23:00 Insulin Aspart (Novolog Insulin Pen) NOVOLOG *MILD* ALGORITHM WITH MEALS BEDTIME SC Last administered on 02/13/19at 21:45; Admin Dose 2 UNIT; Start 02/09/19 at 08:00 Miscellaneous Information 1 ea NOTE XX ; Start 02/09/19 at 11:00 Glucose (Glutose) 15 gm Q15M PRN PO DECREASED GLUCOSE; Start 02/09/19 at 11:00 Glucose (Glutose) 22.5 gm Q15M PRN PO DECREASED GLUCOSE; Start 02/09/19 at 11:00 Dextrose (D50w Syringe) 25 ml Q15M PRN IV DECREASED GLUCOSE; Start 02/09/19 at 11:00 Dextrose (D50w Syringe) 50 ml Q15M PRN IV DECREASED GLUCOSE; Start 02/09/19 at 11:00 Glucagon (Glucagen) 1 mg Q15M PRN IM DECREASED GLUCOSE; Start 02/09/19 at 11:00 Glucose (Glutose) 15 gm Q15M PRN BUCCAL DECREASED GLUCOSE; Start 02/09/19 at 11:00 Metoprolol Tartrate (Lopressor) 25 mg BID PO Last administered on 02/14/19at 09:22; Admin Dose 25 MG; Start 02/09/19 at 15:30 Acetaminophen (Tylenol Tab) 1,000 mg Q6H PRN PO MILD PAIN(1-3)OR ELEVATED TEMP; Start 02/09/19 at 15:30 Cholecalciferol (Vitamin D) 1,000 unit DAILY PO Last administered on 02/14/19 09:22; Admin Dose 1,000 UNIT; Start 02/10/19 at 09:00 Acetaminophen/ Hydrocodone Bitart ([place] (5/325)) 1 tab Q6H PRN PO PAIN; Start 02/09/19 at 15:30 Meclizine HCl (Antivert) 25 mg Q6H PRN PO DIZZINESS; Start 02/09/19 at 16:00 Pantoprazole (Protonix Tab) 40 mg DAILY@0600 PO Last administered on 02/14/19at 05:46; Admin Dose 40 MG; Start 02/10/19 at 06:00 Atorvastatin Calcium (Lipitor) 20 mg HS PO Last administered on 02/13/19at 20:31; Admin Dose 20 MG; Start 02/09/19 at 21:00 Meropenem/Sodium Chloride 50 ml @ 100 mls/hr Q12 IVPB Last administered on at 09:23; Admin Dose 100 MLS/HR; Start 02/10/19 at 12:35 Gabapentin (Neurontin) 300 mg QHS PO Last administered on 02/13/19 20:31; Admin Dose 300 MG; Start 02/13/19 at 21:00 RAULITO CARO Feb 14, 2019 14:56
--- NOTE | 2019-02-14 16:22 | CONS ---
Assessment/Plan Assessment/Plan Hospital Course (Demo Recall) Atrial fibrillation Foot ulcer status post debridement Preserved left ventricular ejection fraction Hypertension Peripheral arterial disease Heart rate trend remained stable Continue anticoagulation as tolerated Consultation Date/Type/Reason Admit Date/Time Feb 08, 2019 at 20:38 Initial Consult Date 02/10/19 Type of Consult Cardiology Requesting Provider: GONZALEZ ANAYA MD Date/Time of Note DATE: 02/14/19 TIME: 16:21 24 HR Interval Summary Free Text/Dictation No shortness of breath, palpitations Exam/Review of Systems Vital Signs Vitals Vital Signs Date Temp Pulse Resp B/P (MAP) Pulse Ox O2 O2 Flow FiO2 Time Delivery Rate 02/14/19 97.8 77 22 97/53 (68) 96 Nasal 2.0 14:47 Cannula Intake and Output 02/13/19 02/13/19 02/14/19 1515:00 23:00 07:00 IntakeIntake Total 530 ml 240 ml 200 ml OutputOutput Total 200 ml 400 ml BalanceBalance 330 ml -160 ml 200 ml Exam Constitutional: alert, oriented (No apparent distress) Head: normocephalic Respiratory: other (Coarse breath sounds bilaterally, no wheezing) Cardiovascular: irregular rhythm (S1-S2 heard) Gastrointestinal: soft, non-tender, bowel sounds Extremities: edema Labs Result Diagram: 02/14/1952602/14/19 05 Results 24hrs Laboratory Tests Test 02/13/19 17:10 02/13/19 20:46 02/14/19 02:43 02/14/19 05:27 Bedside Glucose 94 232 H 112 White Blood Count 8.3 Red Blood Count 3.08 L Hemoglobin 8.4 L Hematocrit 28.5 L Mean Corpuscular 92.5 Volume Mean Corpuscular 27.3 L Hemoglobin Mean Corpuscular 29.5 L Hemoglobin Concent Red Cell 14.6 H Distribution Width Platelet Count 339 Mean Platelet Volume 10.2 Immature 0.500 H Granulocytes % Neutrophils % 58.9 Lymphocytes % 23.1 Monocytes % 10.6 Eosinophils % 6.2 Basophils % 0.7 Nucleated Red Blood 0.0 Cells % Immature 0.040 H Granulocytes # Neutrophils # 4.9 Lymphocytes # 1.9 Monocytes # 0.9 Eosinophils # 0.5 Basophils # 0.1 Nucleated Red Blood 0.0 Cells # Sodium Level 134 L Potassium Level 5.4 H Chloride Level 104 Carbon Dioxide Level 25 Anion Gap 5 Blood Urea Nitrogen 38 H Creatinine 1.45 H Est Glomerular Filtrat Rate mL/min Glucose Level 89 Calcium Level 7.9 L Magnesium Level 1.9 Test 02/14/19 08:05 02/14/19 12:12 Bedside Glucose 82 108 Medications Medications Current Medications Acetaminophen/ Hydrocodone Bitart ([place] (5/325)) 1 tab Q6H PRN PO MODERATE PAIN LEVEL 4-6 Last administered on 02/13/19at 18:38; Admin Dose 1 TAB; Start 02/08/19 at 23:00 Morphine Sulfate (morphine) 2 mg Q4H PRN IV SEVERE PAIN LEVEL 7-10; Start 02/08/19 at 23:00 Acetaminophen (Tylenol Tab) 650 mg Q6H PRN PO MILD PAIN(1-3)OR ELEVATED TEMP; Start 02/08/19 at 23:00 Insulin Aspart (Novolog Insulin Pen) NOVOLOG *MILD* ALGORITHM WITH MEALS BEDTIME SC Last administered on 02/13/19at 21:45; Admin Dose 2 UNIT; Start 02/09/19 at 08:00 Miscellaneous Information 1 ea NOTE XX ; Start 02/09/19 at 11:00 Glucose (Glutose) 15 gm Q15M PRN PO DECREASED GLUCOSE; Start 02/09/19 at 11:00 Glucose (Glutose) 22.5 gm Q15M PRN PO DECREASED GLUCOSE; Start 02/09/19 at 11:00 Dextrose (D50w Syringe) 25 ml Q15M PRN IV DECREASED GLUCOSE; Start 02/09/19 at 11:00 Dextrose (D50w Syringe) 50 ml Q15M PRN IV DECREASED GLUCOSE; Start 02/09/19 at 11:00 Glucagon (Glucagen) 1 mg Q15M PRN IM DECREASED GLUCOSE; Start 02/09/19 at 11:00 Glucose (Glutose) 15 gm Q15M PRN BUCCAL DECREASED GLUCOSE; Start 02/09/19 at 11:00 Metoprolol Tartrate (Lopressor) 25 mg BID PO Last administered on 02/14/19at 09:22; Admin Dose 25 MG; Start 02/09/19 at 15:30 Acetaminophen (Tylenol Tab) 1,000 mg Q6H PRN PO MILD PAIN(1-3)OR ELEVATED TEMP; Start 02/09/19 at 15:30 Cholecalciferol (Vitamin D) 1,000 unit DAILY PO Last administered on 02/14/19 09:22; Admin Dose 1,000 UNIT; Start 02/10/19 at 09:00 Acetaminophen/ Hydrocodone Bitart ([place] (5/325)) 1 tab Q6H PRN PO PAIN; Start 02/09/19 at 15:30 Meclizine HCl (Antivert) 25 mg Q6H PRN PO DIZZINESS; Start 02/09/19 at 16:00 Pantoprazole (Protonix Tab) 40 mg DAILY@0600 PO Last administered on 02/14/19at 05:46; Admin Dose 40 MG; Start 02/10/19 at 06:00 Atorvastatin Calcium (Lipitor) 20 mg HS PO Last administered on 02/13/19at 20:31; Admin Dose 20 MG; Start 02/09/19 at 21:00 Meropenem/Sodium Chloride 50 ml @ 100 mls/hr Q12 IVPB Last administered on 02/14/19 09:23; Admin Dose 100 MLS/HR; Start 02/10/19 at 12:35 Gabapentin (Neurontin) 300 mg QHS PO Last administered on 02/13/19 20:31; Admin Dose 300 MG; Start 02/13/19 at 21:00 Apixaban (Eliquis) 2.5 mg BID PO ; Start 02/14/19 at 21:00 Omer Burrows DO Feb 14, 2019 16:22
[2019-02-14] MEDS: HYDROCODONE/APAP (5/325) TAB PO PRN (17:10)
--- NOTE | 2019-02-14 18:26 | CONS ---
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 The superficial wound culture grew stenotrothomonas, which is a probable contaminant. The deep intra-operative culture did not grow bacteria. - path report from the procedure on 02/11/19 was significant for: R 4th toe showing mostly necrotic bone with no evidence of osteomyelitis or malignancy and R 3rd toe showing acute osteomyelitis without e/o malignancy. - h/o diabetic ulcer and OM of R foot. MRI on 12/31/2018 showed mild bone marrow edema in R 4th toe proximal phalanx which could represent early OM or nonspecific stress reaction. Moderate soft tissue edema without evidence of abscess, suggesting cellulitis. The wound culture on 12/31/2018 grew Enterobacte r, Corynebacteria and Stenotrophomonas. culture on 02/10/2019 grew E. coli # cardiovascular - severe PAD - h/o R iliofemoral endarterectomy 01/18/2019 - h/o revascularization in the past - Atrial fib - HR stable - Mild , mild AR/MR, and mild-mod TR - ACD - HTN # endo, renal - T2DM - Hgb A1c 6.8% - CKD - VRE in urine culture on 02/09/19. Pt denies UTI Sx, a colonizer # other conditions - h/o mental status change, hallucinations during her admission between 01/09 and 02/08 suspected to be caused by levofloxacin (01/18/2019-01/20/2019). Pt's grandson informed 02/11/19 that her family thought gabapentin caused hallucination then. Pt's currently on gabapentin and her mental status appears intact. Therefore, we suspect levofloxacin caused MS change - bacteremia due to Staph spp on 02/08/2019 possible contaminant - allergy to PCN (erythroderma and generalized swelling) and levofloxacin (MS change as above) recommendations: - complete meropenem tomorrow 02/15/2019 and complete 6 week course of an tibiotic(s) for her osteomyelitis. vancomycin was stopped on 02/13/2019 due to rising GFR management d/w Pt's RN Consultation Date/Type/Reason Admit Date/Time Feb 08, 2019 at 20:38 Initial Consult Date 02/10/19 Type of Consult ID Requesting Provider: GONZALEZ ANAYA MD Date/Time of Note DATE: 02/14/19 TIME: 18:22 24 HR Interval Summary Subjective hx not possible: other (limited due to her lethargy) Constitutional: no complaints Detailed Summary Respiratory: no complaints Gastrointestinal: no complaints Musculoskeletal: no complaints Exam/Review of Systems Exam Vitals Vital Signs Date Temp Pulse Resp B/P (MAP) Pulse Ox O2 O2 Flow FiO2 Time Delivery Rate 02/14/19 97.8 77 22 97/53 (68) 96 Nasal 2.0 14:47 Cannula Intake and Output 02/13/19 02/13/19 02/14/19 1515:00 23:00 07:00 IntakeIntake Total 530 ml 240 ml 200 ml OutputOutput Total 200 ml 400 ml BalanceBalance 330 ml -160 ml 200 ml Constitutional: frail Psych: no complaints, nl mood/affect Head: normocephalic, atraumatic Eyes: nl conjunctiva, nl lids, nl sclera ENMT: nl external ears & nose, nl nasal mucosa & septum, mucosa pink and moist Neck: other (not swollen) Respiratory: diminished breath sounds Cardiovascular: regular rate and rhythm, nl pulses Gastrointestinal: soft, non-tender; No distended, No tender Genitourinary - Female: other (no FC) Musculoskeletal: other (s/p amputation of R 3rd and 4th toes, the surgical site has will, no purulence) Extremities: edema (trace); No pitting pedal edema Neurological: lethargic Skin: other (chronic discoloration of the skin of b/l LEs) Results Result Diagram: 02/14/1927 02/14/19 0527 Results 24hrs Laboratory Tests Test 02/13/19 20:46 02/14/19 02:43 02/14/19 05:27 02/14/19 08:05 Bedside Glucose 232 H 112 82 White Blood Count 8.3 Red Blood Count 3.08 L Hemoglobin 8.4 L Hematocrit 28.5 L Mean Corpuscular 92.5 Volume Mean Corpuscular 27.3 L Hemoglobin Mean Corpuscular 29.5 L Hemoglobin Concent Red Cell 14.6 H Distribution Width Platelet Count 339 Mean Platelet Volume 10.2 Immature 0.500 H Granulocytes % Neutrophils % 58.9 Lymphocytes % 23.1 Monocytes % 10.6 Eosinophils % 6.2 Basophils % 0.7 Nucleated Red Blood 0.0 Cells % Immature 0.040 H Granulocytes # Neutrophils # 4.9 Lymphocytes # 1.9 Monocytes # 0.9 Eosinophils # 0.5 Basophils # 0.1 Nucleated Red Blood 0.0 Cells # Sodium Level 134 L Potassium Level 5.4 H Chloride Level 104 Carbon Dioxide Level 25 Anion Gap 5 Blood Urea Nitrogen 38 H Creatinine 1.45 H Est Glomerular Filtrat Rate mL/min Glucose Level 89 Calcium Level 7.9 L Magnesium Level 1.9 Test 02/14/19 12:12 02/14/19 17:08 Bedside Glucose 108 140 Medications Medication Current Medications Acetaminophen/ Hydrocodone Bitart ([place] (5/325)) 1 tab Q6H PRN PO MODERATE PAIN LEVEL 4-6 Last administered on 02/14/19at 17:10; Admin Dose 1 TAB; Start 02/08/19 at 23:00 Morphine Sulfate (morphine) 2 mg Q4H PRN IV SEVERE PAIN LEVEL 7-10; Start 02/08/19 at 23:00 Acetaminophen (Tylenol Tab) 650 mg Q6H PRN PO MILD PAIN(1-3)OR ELEVATED TEMP; Start 02/08/19 at 23:00 Insulin Aspart (Novolog Insulin Pen) NOVOLOG *MILD* ALGORITHM WITH MEALS BEDTIME SC Last administered on 02/13/19at 21:45; Admin Dose 2 UNIT; Start 01/22 at 08:00 Miscellaneous Information 1 ea NOTE XX ; Start 02/09/19 at 11:00 Glucose (Glutose) 15 gm Q15M PRN PO DECREASED GLUCOSE; Start 02/09/19 at 11:00 Glucose (Glutose) 22.5 gm Q15M PRN PO DECREASED GLUCOSE; Start 02/09/19 at 11:00 Dextrose (D50w Syringe) 25 ml Q15M PRN IV DECREASED GLUCOSE; Start 02/09/19 at 11:00 Dextrose (D50w Syringe) 50 ml Q15M PRN IV DECREASED GLUCOSE; Start 02/09/19 at 11:00 Glucagon (Glucagen) 1 mg Q15M PRN IM DECREASED GLUCOSE; Start 02/09/19 at 11:00 Glucose (Glutose) 15 gm Q15M PRN BUCCAL DECREASED GLUCOSE; Start 02/09/19 at 11:00 Metoprolol Tartrate (Lopressor) 25 mg BID PO Last administered on 02/14/19at 09:22; Admin Dose 25 MG; Start 02/09/19 at 15:30 Acetaminophen (Tylenol Tab) 1,000 mg Q6H PRN PO MILD PAIN(1-3)OR ELEVATED TEMP; Start 02/09/19 at 15:30 Cholecalciferol (Vitamin D) 1,000 unit DAILY PO Last administered on 02/14/19at 09:22; Admin Dose 1,000 UNIT; Start 02/10/19 at 09:00 Acetaminophen/ Hydrocodone Bitart ([place] (5/325)) 1 tab Q6H PRN PO PAIN; Start 02/09/19 at 15:30 Meclizine HCl (Antivert) 25 mg Q6H PRN PO DIZZINESS; Start 02/09/19 at 16:00 Pantoprazole (Protonix Tab) 40 mg DAILY@0600 PO Last administered on 02/14/19at 05:46; Admin Dose 40 MG; Start 02/10/19 at 06:00 Atorvastatin Calcium (Lipitor) 20 mg HS PO Last administered on 02/13/19 20:31; Admin Dose 20 MG; Start 02/09/19 at 21:00 Meropenem/Sodium Chloride 50 ml @ 100 mls/hr Q12 IVPB Last administered on 02/14/19at 09:23; Admin Dose 100 MLS/HR; Start 02/10/19 at 12:35 Gabapentin (Neurontin) 300 mg QHS PO Last administered on 02/13/19 20:31; Admin Dose 300 MG; Start 02/13/19 at 21:00 Apixaban (Eliquis) 2.5 mg BID PO ; Start 02/14/19 at 21:00 JAQUELINE HUNTER M.D. Feb 14, 2019 18:26
[2019-02-14 20:00] VITALS: BP 115/58; PULSE 83; RESP 21
[2019-02-14] MEDS: APIXABAN 5 MG TABLET PO SCH (21:15)
[2019-02-14] MEDS: GABAPENTIN 300 MG CAP PO SCH (21:15)
[2019-02-14] MEDS: ATORVASTATIN 20 MG TAB PO SCH (21:15)
[2019-02-15] VITALS: BP 98/52; PULSE 81; RESP 20
[2019-02-15 04:00] VITALS: BP 111/61; PULSE 71; RESP 18
[2019-02-15] MEDS: PANTOPRAZOLE (EC) 40 MG TAB PO SCH (06:06)
[2019-02-15 07:49] VITALS: BP 113/55; PULSE 75; RESP 20
[2019-02-15] MEDS: INSULIN ASPART [NOVOLOG] 3 ML PEN SC SCH ×4 (08:00→21:19)
--- NOTE | 2019-02-15 08:44 | CONS ---
Assessment/Plan Assessment/Plan Assessment/Plan (Daily) 1. acute kidney injury on CKD III due to ATN from sepsis and hypotension + prerenal azotemia 2. Acute hyperkalemia due to NATY 3. H/o PVD s/p Right femoral endareterectomy 4. H/o Chronic atrial fibrillation 5. H/o HTN with currently hypotension 6. Anemia of CKD 7. H/o DM II Plan: IV abx meropenem finishing today Reanlly dose all abx and monitor electrolytes BUN/Cr 38/1.38, K 4.5 - other electrolytes normal today Metoprolol 25 mg BID will follow up Consultation Date/Type/Reason Admit Date/Time Feb 08, 2019 at 20:38 Initial Consult Date 02/10/19 Type of Consult NEPHROLOGY Requesting Provider: GONZALEZ ANAYA MD Date/Time of Note DATE: 02/15/19 TIME: 08:43 Exam/Review of Systems Exam Vitals Vital Signs Date Temp Pulse Resp B/P (MAP) Pulse Ox O2 O2 Flow FiO2 Time Delivery Rate 02/15/19 98.0 75 20 113/55 96 Nasal 07:49 (74) Cannula 02/14/19 2.0 20:00 Intake and Output 02/14/19 02/14/19 02/15/19 1515:00 23:00 07:00 IntakeIntake Total 470 ml 470 ml 50 ml BalanceBalance 470 ml 470 ml 50 ml Exam Constitutional: alert, oriented, well developed Respiratory: clear to auscultation Cardiovascular: irregular rhythm; Gastrointestinal: soft, non-tender Musculoskeletal: other (right foot covered in bandage) Extremities: other (absent dp pulse on left) Neurological: nl mental status, nl speech Results Result Diagram: 02/14/19 0527 02/14/19 0527 Results 24hrs Laboratory Tests Test 02/14/19 12:12 02/14/19 17:08 02/14/19 21:25 02/15/19 07:55 Bedside Glucose 108 140 121 91 Medications Medication Current Medications Acetaminophen/ Hydrocodone Bitart ([place] (5/325)) 1 tab Q6H PRN PO MODERATE PAIN LEVEL 4-6 Last administered on 02/14/19at 17:10; Admin Dose 1 TAB; Start 02/08/19 at 23:00 Morphine Sulfate (morphine) 2 mg Q4H PRN IV SEVERE PAIN LEVEL 7-10; Start 02/08/19 at 23:00 Acetaminophen (Tylenol Tab) 650 mg Q6H PRN PO MILD PAIN(1-3)OR ELEVATED TEMP; Start 02/08/19 at 23:00 Insulin Aspart (Novolog Insulin Pen) NOVOLOG *MILD* ALGORITHM WITH MEALS B EDTIME SC Last administered on 02/13/19at 21:45; Admin Dose 2 UNIT; Start 02/09/19 at 08:00 Miscellaneous Information 1 ea NOTE XX ; Start 02/09/19 at 11:00 Glucose (Glutose) 15 gm Q15M PRN PO DECREASED GLUCOSE; Start 02/09/19 at 11:00 Glucose (Glutose) 22.5 gm Q15M PRN PO DECREASED GLUCOSE; Start 02/09/19 at 11:00 Dextrose (D50w Syringe) 25 ml Q15M PRN IV DECREASED GLUCOSE; Start 02/09/19 at 11:00 Dextrose (D50w Syringe) 50 ml Q15M PRN IV DECREASED GLUCOSE; Start 02/09/19 at 11:00 Glucagon (Glucagen) 1 mg Q15M PRN IM DECREASED GLUCOSE; Start 02/09/19 at 11:00 Glucose (Glutose) 15 gm Q15M PRN BUCCAL DECREASED GLUCOSE; Start 02/09/19 at 11:00 Metoprolol Tartrate (Lopressor) 25 mg BID PO Last administered on 02/14/19at 21:15; Admin Dose 25 MG; Start 02/09/19 at 15:30 Acetaminophen (Tylenol Tab) 1,000 mg Q6H PRN PO MILD PAIN(1-3)OR ELEVATED TEMP; Start 02/09/19 at 15:30 Cholecalciferol (Vitamin D) 1,000 unit DAILY PO Last administered on 02/14/19at 09:22; Admin Dose 1,000 UNIT; Start 02/10/19 at 09:00 Acetaminophen/ Hydrocodone Bitart ([place] (5/325)) 1 tab Q6H PRN PO PAIN; Start 02/09/19 at 15:30 Meclizine HCl (Antivert) 25 mg Q6H PRN PO DIZZINESS; Start 02/09/19 at 16:00 Pantoprazole (Protonix Tab) 40 mg DAILY@0600 PO Last administered on 02/15/19at 06:06; Admin Dose 40 MG; Start 02/10/19 at 06:00 Atorvastatin Calcium (Lipitor) 20 mg HS PO Last administered on 02/14/19at 21:15; Admin Dose 20 MG; Start 02/09/19 at 21:00 Meropenem/Sodium Chloride 50 ml @ 100 mls/hr Q12 IVPB Last administered on 02/14/19at 21:15; Admin Dose 100 MLS/HR; Start 02/10/19 at 12:35 Gabapentin (Neurontin) 300 mg QHS PO Last administered on 02/14/19at 21:15; Admin Dose 300 MG; Start 02/13/19 at 21:00 Apixaban (Eliquis) 2.5 mg BID PO Last administered on 02/14/19 21:15; Admin Dose 2.5 MG; Start 02/14/19 at 21:00 NICOLLE TRAORE MD Feb 15, 2019 08:44
--- NOTE | 2019-02-15 09:11 | PN ---
Date/Time of Note Date/Time of Note DATE: 02/15/19 TIME: 09:09 Assessment/Plan Lines/Catheters IV Catheter Type (from Nrsg): PICC Line Assessment/Plan Assessment/Plan Doing well s/p R 4th toe amputation, healing well, no pain, no signs of ongoing infection OK for d/c from my standpoint Followup with me in the wound center next week Subjective 24 Hr Interval Summary No pain. Less lethargic. Awake and alert. Exam/Review of Systems Vital Signs Vitals Vital Signs Date Temp Pulse Resp B/P (MAP) Pulse Ox O2 O2 Flow FiO2 Time Delivery Rate 02/15/19 98.0 75 20 113/55 96 Nasal 07:49 (74) Cannula 02/14/19 2.0 20:00 Intake and Output 02/14/19 02/14/19 02/15/19 1515:00 23:00 07:00 IntakeIntake Total 470 ml 470 ml 50 ml BalanceBalance 470 ml 470 ml 50 ml Exam Free Text/Dictation R groin incision clean and dry, healed well R foot wrapped, I saw pictures of the 4th toe amputation site and it looks clean, no signs of ischemia Results Result Diagram: 02/14/19 0527 02/14/19 0527 REJI AGUSTIN MD Feb 15, 2019 09:11
[2019-02-15] MEDS: CHOLECALCIFEROL 1,000 UNIT TAB PO SCH (10:48)
[2019-02-15] MEDS: MEROPENEM 1 GM/50ML(PMX) 50 ML IVPB SCH ×2 (10:48→21:09)
[2019-02-15] MEDS: METOPROLOL 25 MG TAB PO SCH ×2 (10:49→21:09)
[2019-02-15] MEDS: APIXABAN 5 MG TABLET PO SCH ×2 (10:49→21:09)
[2019-02-15 11:37] VITALS: BP 109/61; PULSE 83; RESP 20
--- NOTE | 2019-02-15 12:26 | PN ---
Date/Time of Note Date/Time of Note DATE: 02/15/19 TIME: 12:20 Assessment/Plan VTE Prophylaxis Risk score (from Ns)>0 risk: 7 [place] [facility] [place] SCD contraindicated: other Pharmacological prophylaxis: other Pharm contraindication: other Lines/Catheters [facility] Type (from [facility] PICC Line Central line still needed: Yes Assessment/Plan Assessment/Plan -- Hyperkalemia- Potassium is 5.4 status post Kayexalate yesterday- resolved -Right foot diabetic foot ulcer with gangrene and osteomyelitis, status post de bridement. Dr. Maynard is following and podiatry consultation. Continue antibiotics per ID. Dr. Mata is following in infection disease consultation. -Severe peripheral vascular disease with history of right ileal femoral endarterectomy on 01/18/[address] Allen. -Atrial fibrillation. Continue metoprolol, start Eliquis. Dr. Burrows is following in cardiology consultation. -Hypertension -Acute kidney injury on chronic kidney disease. -Anemia of chronic disease -Type 2 diabetes mellitus - Glycemic control; BS stable Further recommendations based on clinical course. Plan of care discussed with Dr. Williamson. Result Diagram: 02/14/19 0527 02/15/19 0925 Results 24hrs Laboratory Tests Test 02/14/19 17:08 02/14/19 21:25 02/15/19 07:55 02/15/19 09:25 Bedside Glucose 140 121 91 Sodium Level 139 Potassium Level 4.5 Chloride Level 105 Carbon Dioxide Level 29 Anion Gap 5 Blood Urea Nitrogen 38 H Creatinine 1.38 H Est Glomerular Filtrat Rate mL/min Glucose Level 111 Calcium Level 8.2 L Test 02/15/19 12:08 Bedside Glucose 106 Subjective 24 Hr Interval Summary Free Text/Dictation -hemodynamically stable currently on meropenem - afebrile. - patient is started on Eliquis for atrial fibrillation -continue telemetry monitoring. - Potassium is 5.4 status post Kayexalate yesterday- resolved -continue to monitor renal function and electrolytes. - CR 1. 38 ; - Plan of care dw son -at bed side Constitutional: requiring O2 Eyes: no complaints ENT: no complaints Respiratory: no complaints Cardiovascular: no complaints Gastrointestinal: no complaints Musculoskeletal: bone/joint pain, restricted range of motion Exam/Review of Systems Exam Vitals Vital Signs Date Temp Pulse Resp B/P (MAP) Pulse Ox O2 O2 Flow FiO2 Time Delivery Rate 02/15/19 98.0 83 20 109/61 98 Nasal 11:37 (77) Cannula 02/14/19 2.0 20:00 Intake and Output 02/14/19 02/14/19 02/15/19 1414:59 22:59 06:59 IntakeIntake Total 470 ml 470 ml 50 ml BalanceBalance 470 ml 470 ml 50 ml Constitutional: alert Psych: nl mood/affect Head: atraumatic Eyes: nl lids, nl sclera ENMT: nl external ears & nose Neck: non-tender Respiratory: clear to auscultation Cardiovascular: nl pulses, other (s1s2) Gastrointestinal: soft, non-tender Musculoskeletal: joint tenderness, range of motion Extremities: normal pulses Neurological: other (alert) Lymph: nontender Results Results 24hrs Laboratory Tests Test 02/14/19 17:08 02/14/19 21:25 02/15/19 07:55 02/15/19 09:25 Bedside Glucose 140 121 91 Sodium Level 139 Potassium Level 4.5 Chloride Level 105 Carbon Dioxide Level 29 Anion Gap 5 Blood Urea Nitrogen 38 H Creatinine 1.38 H Est Glomerular Filtrat Rate mL/min Glucose Level 111 Calcium Level 8.2 L Test 02/15/19 12:08 Bedside Glucose 106 Medications Medication Current Medications Acetaminophen/ Hydrocodone Bitart ([place] (5/325)) 1 tab Q6H PRN PO MODERATE PAIN LEVEL 4-6 Last administered on 02/14/19at 17:10; Admin Dose 1 TAB; Start 02/08/19 at 23:00 Morphine Sulfate (morphine) 2 mg Q4H PRN IV SEVERE PAIN LEVEL 7-10; Start 02/08/19 at 23:00 Acetaminophen (Tylenol Tab) 650 mg Q6H PRN PO MILD PAIN(1-3)OR ELEVATED TEMP; Start 02/08/19 at 23:00 Insulin Aspart (Novolog Insulin Pen) NOVOLOG *MILD* ALGORITHM WITH MEALS BEDTIME SC Last administered on 02/13/19at 21:45; Admin Dose 2 UNIT; Start 02/09/19 at 08:00 Miscellaneous Information 1 ea NOTE XX ; Start 02/09/19 at 11:00 Glucose (Glutose) 15 gm Q15M PRN PO DECREASED GLUCOSE; Start 02/09/19 at 11:00 Glucose (Glutose) 22.5 gm Q15M PRN PO DECREASED GLUCOSE; Start 02/09/19 at 11:00 Dextrose (D50w Syringe) 25 ml Q15M PRN IV DECREASED GLUCOSE; Start 02/09/19 at 11:00 Dextrose (D50w Syringe) 50 ml Q15M PRN IV DECREASED GLUCOSE; Start 02/09/19 at 11:00 Glucagon (Glucagen) 1 mg Q15M PRN IM DECREASED GLUCOSE; Start 02/09/19 at 11:00 Glucose (Glutose) 15 gm Q15M PRN BUCCAL DECREASED GLUCOSE; Start 02/09/19 at 11:00 Metoprolol Tartrate (Lopressor) 25 mg BID PO Last administered on 02/15/19at 10:49; Admin Dose 25 MG; Start 02/09/19 at 15:30 Acetaminophen (Tylenol Tab) 1,000 mg Q6H PRN PO MILD PAIN(1-3)OR ELEVATED TEMP; Start 02/09/19 at 15:30 Cholecalciferol (Vitamin D) 1,000 unit DAILY PO Last administered on 02/15/19at 10:48; Admin Dose 1,000 UNIT; Start 02/10/19 at 09:00 Acetaminophen/ Hydrocodone Bitart ([place] (5/325)) 1 tab Q6H PRN PO PAIN; Start 02/09/19 at 15:30 Meclizine HCl (Antivert) 25 mg Q6H PRN PO DIZZINESS; Start 02/09/19 at 16:00 Pantoprazole (Protonix Tab) 40 mg DAILY@0600 PO Last administered on 02/15/19at 06:06; Admin Dose 40 MG; Start 02/10/19 at 06:00 Atorvastatin Calcium (Lipitor) 20 mg HS PO Last administered on 02/14/19at 21:15; Admin Dose 20 MG; Start 02/09/19 at 21:00 Meropenem/Sodium Chloride 50 ml @ 100 mls/hr Q12 IVPB Last administered on 02/15/19at 10:48; Admin Dose 100 MLS/HR; Start 02/10/19 at 12:35 Gabapentin (Neurontin) 300 mg QHS PO Last administered on 02/14/19at 21:15; Admin Dose 300 MG; Start 02/13/19 at 21:00 Apixaban (Eliquis) 2.5 mg BID PO Last administered on 02/15/19at 10:49; Admin Dose 2.5 MG; Start 02/14/19 at 21:00 LISA ESTEVEZ Feb 15, 2019 12:26
--- NOTE | 2019-02-15 14:06 | CONS ---
Assessment/Plan Assessment/Plan Hospital Course (Demo Recall) Atrial fibrillation Foot ulcer status post debridement Preserved left ventricular ejection fraction Hypertension Peripheral arterial disease Heart rate trend remained stable Continue anticoagulation as tolerated Consultation Date/Type/Reason Admit Date/Time Feb 08, 2019 at 20:38 Initial Consult Date 02/10/19 Type of Consult Cardiology Requesting Provider: GONZALEZ ANAYA MD Date/Time of Note DATE: 02/15/19 TIME: 14:05 24 HR Interval Summary Free Text/Dictation No shortness of breath Exam/Review of Systems Vital Signs Vitals Vital Signs Date Temp Pulse Resp B/P (MAP) Pulse Ox O2 O2 Flow FiO2 Time Delivery Rate 02/15/19 98.0 83 20 109/61 98 Nasal 11:37 (77) Cannula 02/14/19 2.0 20:00 Intake and Output 02/14/19 02/14/19 02/15/19 1515:00 23:00 07:00 IntakeIntake Total 470 ml 470 ml 50 ml BalanceBalance 470 ml 470 ml 50 ml Exam Constitutional: alert, oriented (No apparent distress) Head: normocephalic Respiratory: other (Coarse breath sounds bilaterally, no wheezing) Cardiovascular: irregular rhythm (S1-S2 heard) Gastrointestinal: soft, non-tender, bowel sounds Extremities: edema (Trace) Labs Result Diagram: 02/14/19 0527 02/15/19 0925 Results 24hrs Laboratory Tests Test 02/14/19 17:08 02/14/19 21:25 02/15/19 07:55 02/15/19 09:25 Bedside Glucose 140 121 91 Sodium Level 139 Potassium Level 4.5 Chloride Level 105 Carbon Dioxide Level 29 Anion Gap 5 Blood Urea Nitrogen 38 H Creatinine 1.38 H Est Glomerular Filtrat Rate mL/min Glucose Level 111 Calcium Level 8.2 L Test 02/15/19 12:08 Bedside Glucose 106 Medications Medications Current Medications Acetaminophen/ Hydrocodone Bitart ([place] (5/325)) 1 tab Q6H PRN PO MODERATE PAIN LEVEL 4-6 Last administered on 02/14/19at 17:10; Admin Dose 1 TAB; Start 02/08/19 at 23:00 Morphine Sulfate (morphine) 2 mg Q4H PRN IV SEVERE PAIN LEVEL 7-10; Start 02/08/19 at 23:00 Acetaminophen (Tylenol Tab) 650 mg Q6H PRN PO MILD PAIN(1-3)OR ELEVATED TEMP; Start 02/08/19 at 23:00 Insulin Aspart (Novolog Insulin Pen) NOVOLOG *MILD* ALGORITHM WITH MEALS BEDTIME SC Last administered on 02/13/19at 21:45; Admin Dose 2 UNIT; Start 02/09/19 at 08:00 Miscellaneous Information 1 ea NOTE XX ; Start 02/09/19 at 11:00 Glucose (Glutose) 15 gm Q15M PRN PO DECREASED GLUCOSE; Start 02/09/19 at 11:00 Glucose (Glutose) 22.5 gm Q15M PRN PO DECREASED GLUCOSE; Start 02/09/19 at 11:00 Dextrose (D50w Syringe) 25 ml Q15M PRN IV DECREASED GLUCOSE; Start 02/09/19 at 11:00 Dextrose (D50w Syringe) 50 ml Q15M PRN IV DECREASED GLUCOSE; Start 02/09/19 at 11:00 Glucagon (Glucagen) 1 mg Q15M PRN IM DECREASED GLUCOSE; Start 02/09/19 at 11:00 Glucose (Glutose) 15 gm Q15M PRN BUCCAL DECREASED GLUCOSE; Start 02/09/19 at 11:00 Metoprolol Tartrate (Lopressor) 25 mg BID PO Last administered on 02/15/19at 10:49; Admin Dose 25 MG; Start 02/09/19 at 15:30 Acetaminophen (Tylenol Tab) 1,000 mg Q6H PRN PO MILD PAIN(1-3)OR ELEVATED TEMP; Start 02/09/19 at 15:30 Cholecalciferol (Vitamin D) 1,000 unit DAILY PO Last administered on 02/15/19at 10:48; Admin Dose 1,000 UNIT; Start 02/10/19 at 09:00 Acetaminophen/ Hydrocodone Bitart ([place] (5/325)) 1 tab Q6H PRN PO PAIN; Start 02/09/19 at 15:30 Meclizine HCl (Antivert) 25 mg Q6H PRN PO DIZZINESS; Start 02/09/19 at 16:00 Pantoprazole (Protonix Tab) 40 mg DAILY@0600 PO Last administered on 02/15/19at 06:06; Admin Dose 40 MG; Start 02/10/19 at 06:00 Atorvastatin Calcium (Lipitor) 20 mg HS PO Last administered on 02/14/19at 21:15; Admin Dose 20 MG; Start 02/09/19 at 21:00 Meropenem/Sodium Chloride 50 ml @ 100 mls/hr Q12 IVPB Last administered on 02/15/19 10:48; Admin Dose 100 MLS/HR; Start 02/10/19 at 12:35 Gabapentin (Neurontin) 300 mg QHS PO Last administered on 02/14/19 21:15; Admin Dose 300 MG; Start 02/13/19 at 21:00 Apixaban (Eliquis) 2.5 mg BID PO Last administered on 02/15/19 10:49; Admin Dose 2.5 MG; Start 02/14/19 at 21:00 Omer Burrows DO Feb 15, 2019 14:06
[2019-02-15 15:48] VITALS: BP 131/88; PULSE 89; RESP 20
--- NOTE | 2019-02-15 16:14 | CONS ---
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 The superficial wound culture grew stenotrothomonas, which is a probable contaminant. The deep intra-operative culture did not grow bacteria. - path report from the procedure on 02/11/19 was significant for: R 4th toe showing mostly necrotic bone with no evidence of osteomyelitis or malignancy and R 3rd toe showing acute osteomyelitis without e/o malignancy. - h/o diabetic ulcer and OM of R foot. MRI on 12/31/2018 showed mild bone marrow edema in R 4th toe proximal phalanx which could represent early OM or nonspecific stress reaction. Moderate soft tissue edema without evidence of abscess, suggesting cellulitis. The wound culture on 12/31/2018 grew Enterobacte r, Corynebacteria and Stenotrophomonas. culture on 02/10/2019 grew E. coli # cardiovascular - severe PAD - h/o R iliofemoral endarterectomy 01/18/2019 - h/o revascularization in the past - Atrial fib - HR stable - Mild , mild AR/MR, and mild-mod TR - ACD - HTN # endo, renal - T2DM - Hgb A1c 6.8% - CKD - VRE in urine culture on 02/09/19. Pt denies UTI Sx, a colonizer # other conditions - h/o mental status change, hallucinations during her admission between 01/09 and 02/08 suspected to be caused by levofloxacin (01/18/2019-01/20/2019). Pt's grandson informed 02/11/19 that her family thought gabapentin caused hallucination then. Pt's currently on gabapentin and her mental status appears intact. Therefore, we suspect levofloxacin caused MS change - bacteremia due to Staph spp on 02/08/2019 possible contaminant - allergy to PCN (erythroderma and generalized swelling) and levofloxacin (MS change as above) recommendations: - complete meropenem today 02/15/2019 and complete 6 week course of antibiotic(s) for her osteomyelitis. vancomycin was stopped on 02/13/2019 due to rising GFR management d/w Pt and her family member Consultation Date/Type/Reason Admit Date/Time Feb 08, 2019 at 20:38 Initial Consult Date 02/10/19 Type of Consult ID Requesting Provider: GONZALEZ ANAYA MD Date/Time of Note DATE: 02/15/19 TIME: 16:12 24 HR Interval Summary Constitutional: improved Detailed Summary Respiratory: no complaints Cardiovascular: no complaints Gastrointestinal: no complaints Genitourinary: no complaints Musculoskeletal: other (no pain from R foot at this moment) Skin: no complaints Exam/Review of Systems Exam Vitals Vital Signs Date Temp Pulse Resp B/P (MAP) Pulse Ox O2 O2 Flow FiO2 Time Delivery Rate 02/15/19 98.0 83 20 109/61 98 Nasal 11:37 (77) Cannula 02/15/19 2.0 08:00 Intake and Output 02/14/19 02/14/19 02/15/19 1515:00 23:00 07:00 IntakeIntake Total 470 ml 470 ml 50 ml BalanceBalance 470 ml 470 ml 50 ml Constitutional: frail Psych: no complaints, nl mood/affect Head: normocephalic, atraumatic Eyes: nl conjunctiva, nl lids, nl sclera ENMT: nl external ears & nose, nl nasal mucosa & septum, mucosa pink and moist Neck: non-tender Respiratory: clear to auscultation Cardiovascular: regular rate and rhythm, nl pulses Gastrointestinal: soft, non-tender; No distended, No tender Musculoskeletal: other (R foot is dressed) Extremities: normal pulses Neurological: lethargic Skin: No rash or lesions Results Result Diagram: 02/14/19 0527 02/15/19 0925 Results 24hrs Laboratory Tests Test 02/14/19 17:08 02/14/19 21:25 02/15/19 07:55 02/15/19 09:25 Bedside Glucose 140 121 91 Sodium Level 139 Potassium Level 4.5 Chloride Level 105 Carbon Dioxide Level 29 Anion Gap 5 Blood Urea Nitrogen 38 H Creatinine 1.38 H Est Glomerular Filtrat Rate mL/min Glucose Level 111 Calcium Level 8.2 L Test 02/15/19 12:08 Bedside Glucose 106 Medications Medication Current Medications Acetaminophen/ Hydrocodone Bitart ([place] (5/325)) 1 tab Q6H PRN PO MODERATE PAIN LEVEL 4-6 Last administered on 02/14/19at 17:10; Admin Dose 1 TAB; Start 02/08/19 at 23:00 Morphine Sulfate (morphine) 2 mg Q4H PRN IV SEVERE PAIN LEVEL 7-10; Start 02/08/19 at 23:00 Acetaminophen (Tylenol Tab) 650 mg Q6H PRN PO MILD PAIN(1-3)OR ELEVATED TEMP; Start 02/08/19 at 23:00 Insulin Aspart (Novolog Insulin Pen) NOVOLOG *MILD* ALGORITHM WITH MEALS BEDTIME SC Last administered on 02/13/19at 21:45; Admin Dose 2 UNIT; Start 02/09/19 at 08:00 Miscellaneous Information 1 ea NOTE XX ; Start 02/09/19 at 11:00 Glucose (Glutose) 15 gm Q15M PRN PO DECREASED GLUCOSE; Start 02/09/19 at 11:00 Glucose (Glutose) 22.5 gm Q15M PRN PO DECREASED GLUCOSE; Start 02/09/19 at 11:00 Dextrose (D50w Syringe) 25 ml Q15M PRN IV DECREASED GLUCOSE; Start 02/09/19 at 11:00 Dextrose (D50w Syringe) 50 ml Q15M PRN IV DECREASED GLUCOSE; Start 02/09/19 at 11:00 Glucagon (Glucagen) 1 mg Q15M PRN IM DECREASED GLUCOSE; Start 02/09/19 at 11:00 Glucose (Glutose) 15 gm Q15M PRN BUCCAL DECREASED GLUCOSE; Start 02/09/19 at 11:00 Metoprolol Tartrate (Lopressor) 25 mg BID PO Last administered on 02/15/19at 10:49; Admin Dose 25 MG; Start 02/09/19 at 15:30 Acetaminophen (Tylenol Tab) 1,000 mg Q6H PRN PO MILD PAIN(1-3)OR ELEVATED TEMP; Start 02/09/19 at 15:30 Cholecalciferol (Vitamin D) 1,000 unit DAILY PO Last administered on 02/15/19at 10:48; Admin Dose 1,000 UNIT; Start 02/10/19 at 09:00 Acetaminophen/ Hydrocodone Bitart ([place] (5/325)) 1 tab Q6H PRN PO PAIN; Start 02/09/19 at 15:30 Meclizine HCl (Antivert) 25 mg Q6H PRN PO DIZZINESS; Start 02/09/19 at 16:00 Pantoprazole (Protonix Tab) 40 mg DAILY@0600 PO Last administered on 02/15/19 06:06; Admin Dose 40 MG; Start 02/10/19 at 06:00 Atorvastatin Calcium (Lipitor) 20 mg HS PO Last administered on 02/14/19 21:15; Admin Dose 20 MG; Start 02/09/19 at 21:00 Meropenem/Sodium Chloride 50 ml @ 100 mls/hr Q12 IVPB Last administered on 02/15/19 10:48; Admin Dose 100 MLS/HR; Start 02/10/19 at 12:35 Gabapentin (Neurontin) 300 mg QHS PO Last administered on 02/14/19 21:15; Admin Dose 300 MG; Start 02/13/19 at 21:00 Apixaban (Eliquis) 2.5 mg BID PO Last administered on 02/15/19 10:49; Admin Dose 2.5 MG; Start 02/14/19 at 21:00 JAQUELINE HUNTER M.D. Feb 15, 2019 16:14
[2019-02-15] MEDS: HYDROCODONE/APAP (5/325) TAB PO PRN (16:39)
[2019-02-15 20:26] VITALS: BP 95/50; PULSE 85; RESP 18
[2019-02-15] MEDS: ATORVASTATIN 20 MG TAB PO SCH (21:09)
[2019-02-15] MEDS: GABAPENTIN 300 MG CAP PO SCH (21:09)
[2019-02-16] VITALS: BP 98/52; PULSE 63; RESP 18
[2019-02-16 04:19] VITALS: BP 117/70; PULSE 91; RESP 18
[2019-02-16] MEDS: PANTOPRAZOLE (EC) 40 MG TAB PO SCH (05:35)
[2019-02-16 08:02] VITALS: BP 129/74; PULSE 97; RESP 20
[2019-02-16] MEDS: APIXABAN 5 MG TABLET PO SCH ×2 (08:38→21:01)
[2019-02-16] MEDS: METOPROLOL 25 MG TAB PO SCH ×2 (08:38→21:01)
[2019-02-16] MEDS: CHOLECALCIFEROL 1,000 UNIT TAB PO SCH (08:38)
[2019-02-16] MEDS: INSULIN ASPART [NOVOLOG] 3 ML PEN SC SCH ×4 (08:50→21:11)
--- NOTE | 2019-02-16 11:24 | PN ---
Date/Time of Note Date/Time of Note DATE: 02/16/19 TIME: 11:23 Assessment/Plan VTE Prophylaxis Risk score (from [facility])>0 risk: 7 SCD applied (from [facility]): No SCD contraindicated: other Pharmacological prophylaxis: LMWH Lines/Catheters IV Catheter Type (from [facility]): PICC Line Central line still needed: Yes Assessment/Plan Hospital Course -- Hyperkalemia- Potassium is 5.4 status post Kayexalate yesterday- resolved -Right foot diabetic foot ulcer with gangrene and osteomyelitis, status post debridement. Dr. Maynard is following and podiatry consultation. Continue antibiotics per ID. Dr. Mata is following in infection disease consultation. -Severe peripheral vascular disease with history of right ileal femoral endarterectomy on 01/18/[address] Allen. -Atrial fibrillation. Continue metoprolol, start Eliquis. Dr. Burrows is follow ing in cardiology consultation. -Hypertension -Acute kidney injury on chronic kidney disease. -Anemia of chronic disease -Type 2 diabetes mellitus - Glycemic control; BS stable Result Diagram: 02/16/1951802/16/19518 Results 24hrs Laboratory Tests Test 02/15/19 12:08 02/15/19 17:29 02/15/19 21:07 02/16/19 05:19 Bedside Glucose 106 98 271 H White Blood Count 8.4 Red Blood Count 3.11 L Hemoglobin 8.3 L Hematocrit 28.4 L Mean Corpuscular 91.3 Volume Mean Corpuscular 26.7 L Hemoglobin Mean Corpuscular 29.2 L Hemoglobin Concent Red Cell 14.6 H Distribution Width Platelet Count 375 Mean Platelet Volume 10.0 Immature 0.400 Granulocytes % Neutrophils % 69.8 Lymphocytes % 18.1 Monocytes % 8.0 Eosinophils % 3.2 Basophils % 0.5 Nucleated Red Blood 0.0 Cells % Immature 0.030 Granulocytes # Neutrophils # 5.9 Lymphocytes # 1.5 Monocytes # 0.7 Eosinophils # 0.3 Basophils # 0.0 Nucleated Red Blood 0.0 Cells # Sodium Level 135 Potassium Level 5.0 Chloride Level 102 Carbon Dioxide Level 30 Anion Gap 3 L Blood Urea Nitrogen 48 H Creatinine 1.21 H Est Glomerular Filtrat Rate mL/min Glucose Level 134 Calcium Level 8.1 L Test 02/16/19 08:36 Bedside Glucose 149 Subjective 24 Hr Interval Summary Free Text/Dictation Patient appears comfortable Exam/Review of Systems Exam Vitals Vital Signs Date Temp Pulse Resp B/P (MAP) Pulse Ox O2 O2 Flow FiO2 Time Delivery Rate 02/16/19 97.9 97 20 129/74 94 Nasal 08:02 (92) Cannula 02/15/19 2.0 20:00 Intake and Output 02/15/19 02/15/19 02/16/19 1515:00 23:00 07:00 IntakeIntake Total 750 ml 100 ml OutputOutput Total 4 ml BalanceBalance 746 ml 100 ml Constitutional: well developed Head: normocephalic, atraumatic Neck: supple Respiratory: diminished breath sounds Cardiovascular: regular rate and rhythm Gastrointestinal: soft, non-tender Extremities: normal pulses Results Results 24hrs Laboratory Tests Test 02/15/19 12:08 02/15/19 17:29 02/15/19 21:07 02/16/19 05:19 Bedside Glucose 106 98 271 H White Blood Count 8.4 Red Blood Count 3.11 L Hemoglobin 8.3 L Hematocrit 28.4 L Mean Corpuscular 91.3 Volume Mean Corpuscular 26.7 L Hemoglobin Mean Corpuscular 29.2 L Hemoglobin Concent Red Cell 14.6 H Distribution Width Platelet Count 375 Mean Platelet Volume 10.0 Immature 0.400 Granulocytes % Neutrophils % 69.8 Lymphocytes % 18.1 Monocytes % 8.0 Eosinophils % 3.2 Basophils % 0.5 Nucleated Red Blood 0.0 Cells % Immature 0.030 Granulocytes # Neutrophils # 5.9 Lymphocytes # 1.5 Monocytes # 0.7 Eosinophils # 0.3 Basophils # 0.0 Nucleated Red Blood 0.0 Cells # Sodium Level 135 Potassium Level 5.0 Chloride Level 102 Carbon Dioxide Level 30 Anion Gap 3 L Blood Urea Nitrogen 48 H Creatinine 1.21 H Est Glomerular Filtrat Rate mL/min Glucose Level 134 Calcium Level 8.1 L Test 02/16/19 08:36 Bedside Glucose 149 Medications Medication Current Medications Acetaminophen/ Hydrocodone Bitart ([place] (5/325)) 1 tab Q6H PRN PO MODERATE PAIN LEVEL 4-6 Last administered on 02/15/19at 16:39; Admin Dose 1 TAB; Start 02/08/19 at 23:00 Morphine Sulfate (morphine) 2 mg Q4H PRN IV SEVERE PAIN LEVEL 7-10; Start 02/08/19 at 23:00 Acetaminophen (Tylenol Tab) 650 mg Q6H PRN PO MILD PAIN(1-3)OR ELEVATED TEMP; Start 02/08/19 at 23:00 Insulin Aspart (Novolog Insulin Pen) NOVOLOG *MILD* ALGORITHM WITH MEALS BEDTIME SC Last administered on 02/16/19at 08:50; Admin Dose 1 UNIT; Start 02/09/19 at 08:00 Miscellaneous Information 1 ea NOTE XX ; Start 02/09/19 at 11:00 Glucose (Glutose) 15 gm Q15M PRN PO DECREASED GLUCOSE; Start 02/09/19 at 11:00 Glucose (Glutose) 22.5 gm Q15M PRN PO DECREASED GLUCOSE; Start 02/09/19 at 11:00 Dextrose (D50w Syringe) 25 ml Q15M PRN IV DECREASED GLUCOSE; Start 02/09/19 at 11:00 Dextrose (D50w Syringe) 50 ml Q15M PRN IV DECREASED GLUCOSE; Start 02/09/19 at 11:00 Glucagon (Glucagen) 1 mg Q15M PRN IM DECREASED GLUCOSE; Start 02/09/19 at 11:00 Glucose (Glutose) 15 gm Q15M PRN BUCCAL DECREASED GLUCOSE; Start 02/09/19 at 11:00 Metoprolol Tartrate (Lopressor) 25 mg BID PO Last administered on 02/16/19at 08:38; Admin Dose 25 MG; Start 02/09/19 at 15:30 Acetaminophen (Tylenol Tab) 1,000 mg Q6H PRN PO MILD PAIN(1-3)OR ELEVATED TEMP; Start 02/09/19 at 15:30 Cholecalciferol (Vitamin D) 1,000 unit DAILY PO Last administered on 02/16/19at 08:38; Admin Dose 1,000 UNIT; Start 02/10/19 at 09:00 Acetaminophen/ Hydrocodone Bitart ([place] (5/325)) 1 tab Q6H PRN PO PAIN; Start 02/09/19 at 15:30 Meclizine HCl (Antivert) 25 mg Q6H PRN PO DIZZINESS; Start 02/09/19 at 16:00 Pantoprazole (Protonix Tab) 40 mg DAILY@0600 PO Last administered on 02/16/19at 05:35; Admin Dose 40 MG; Start 02/10/19 at 06:00 Atorvastatin Calcium (Lipitor) 20 mg HS PO Last administered on 02/15/19at 21:09; Admin Dose 20 MG; Start 02/09/19 at 21:00 Gabapentin (Neurontin) 300 mg QHS PO Last administered on 02/15/19at 21:09; Admin Dose 300 MG; Start 02/13/19 at 21:00 Apixaban (Eliquis) 2.5 mg BID PO Last administered on 02/16/19 08:38; Admin Dose 2.5 MG; Start 02/14/19 at 21:00 SOFYA NOYOLA Feb 16, 2019 11:24
[2019-02-16 11:37] VITALS: BP 116/66; PULSE 71; RESP 18
[2019-02-16 15:38] VITALS: BP 109/53; PULSE 80
--- NOTE | 2019-02-16 18:45 | CONS ---
Assessment/Plan Assessment/Plan Assessment/Plan (Daily) 1. acute kidney injury on CKD III due to ATN from sepsis and hypotension + prerenal azotemia 2. Acute hyperkalemia due to NATY- resolved 3. H/o PVD s/p Right femoral endarterectomy 4. H/o Chronic atrial fibrillation 5. H/o HTN with currently hypotension 6. Anemia of CKD 7. H/o DM II Plan: IV abx meropenem finishing today Renally dose all abx and monitor electrolytes BUN 48; ;Cr trended down to 1.2, K 5.0 - other electrolytes normal today UO - 3 voids/24 hrs Metoprolol 25 mg BID Patient seen in collaboration wit Dr Giana jacobs. Plan of care dw staff nad afebrile BUN/ Cr- 48/1.2 UO - 3 voids/24 hrs family at bed side- Qs answered no new events overnight dw staff Consultation Date/Type/Reason Admit Date/Time Feb 08, 2019 at 20:38 Initial Consult Date 02/10/19 Type of Consult NEPHROLOGY Reason for Consultation NATY ON CKD Requesting Provider: GONZALEZ ANAYA MD Date/Time of Note DATE: 02/16/19 TIME: 18:45 24 HR Interval Summary Free Text/Dictation nad afebrile BUN/ Cr- 48/1.2 UO - 3 voids/24 hrs family at bed side- answered no new events overnight dw staff Constitutional: requiring O2 Detailed Summary Eyes: no complaints ENT: no complaints Respiratory: no complaints Cardiovascular: no complaints Gastrointestinal: no complaints Genitourinary: no complaints Musculoskeletal: restricted range of motion, other (RLE- denies pain at present) Skin: no complaints Neurologic: no complaints Endocrine: no complaints Lymphatic: no complaints Psychological: nl mood/affect Exam/Review of Systems Exam Vitals Vital Signs Date Temp Pulse Resp B/P (MAP) Pulse Ox O2 O2 Flow FiO2 Time Delivery Rate 02/16/19 98.0 80 109/53 100 Nasal 15:38 (71) Cannula 02/16/19 18 11:37 02/15/19 2.0 20:00 Intake and Output 02/15/19 02/15/19 02/16/19 1515:00 23:00 07:00 IntakeIntake Total 750 ml 100 ml OutputOutput Total 4 ml BalanceBalance 746 ml 100 ml Constitutional: alert, well developed Psych: nl mood/affect Head: atraumatic Eyes: nl lids, nl sclera ENMT: nl external ears & nose Neck: non-tender Respiratory: clear to auscultation Cardiovascular: nl pulses, other (s1s2) Gastrointestinal: soft, non-tender Musculoskeletal: muscle weakness, range of motion, other (RLE- DDI) Neurological: other (alert;responsive) Skin: other (no rash noted) Results Result Diagram: 02/16/1951802/16/19518 Results 24hrs Laboratory Tests Test 02/15/19 21:07 02/16/19 05:19 02/16/19 08:36 02/16/19 11:37 Bedside Glucose 271 H 149 149 White Blood Count 8.4 Red Blood Count 3.11 L Hemoglobin 8.3 L Hematocrit 28.4 L Mean Corpuscular 91.3 Volume Mean Corpuscular 26.7 L Hemoglobin Mean Corpuscular 29.2 L Hemoglobin Concent Red Cell 14.6 H Distribution Width Platelet Count 375 Mean Platelet Volume 10.0 Immature 0.400 Granulocytes % Neutrophils % 69.8 Lymphocytes % 18.1 Monocytes % 8.0 Eosinophils % 3.2 Basophils % 0.5 Nucleated Red Blood 0.0 Cells % Immature 0.030 Granulocytes # Neutrophils # 5.9 Lymphocytes # 1.5 Monocytes # 0.7 Eosinophils # 0.3 Basophils # 0.0 Nucleated Red Blood 0.0 Cells # Sodium Level 135 Potassium Level 5.0 Chloride Level 102 Carbon Dioxide Level 30 Anion Gap 3 L Blood Urea Nitrogen 48 H Creatinine 1.21 H Est Glomerular Filtrat Rate mL/min Glucose Level 134 Calcium Level 8.1 L Test 02/16/19 17:50 Bedside Glucose 110 Medications Medication Current Medications Acetaminophen/ Hydrocodone Bitart ([place] (5/325)) 1 tab Q6H PRN PO MODERATE PAIN LEVEL 4-6 Last administered on 02/15/19at 16:39; Admin Dose 1 TAB; Start 02/08/19 at 23:00 Morphine Sulfate (morphine) 2 mg Q4H PRN IV SEVERE PAIN LEVEL 7-10; Start 02/08/19 at 23:00 Acetaminophen (Tylenol Tab) 650 mg Q6H PRN PO MILD PAIN(1-3)OR ELEVATED TEMP; Start 02/08/19 at 23:00 Insulin Aspart (Novolog Insulin Pen) NOVOLOG *MILD* ALGORITHM WITH MEALS BEDTIME SC Last administered on 02/16/19at 11:54; Admin Dose 1 UNIT; Start 02/09/19 at 08:00 Miscellaneous Information 1 ea NOTE XX ; Start 02/09/19 at 11:00 Glucose (Glutose) 15 gm Q15M PRN PO DECREASED GLUCOSE; Start 02/09/19 at 11:00 Glucose (Glutose) 22.5 gm Q15M PRN PO DECREASED GLUCOSE; Start 02/09/19 at 11:00 Dextrose (D50w Syringe) 25 ml Q15M PRN IV DECREASED GLUCOSE; Start 02/09/19 at 11:00 Dextrose (D50w Syringe) 50 ml Q15M PRN IV DECREASED GLUCOSE; Start 02/09/19 at 11:00 Glucagon (Glucagen) 1 mg Q15M PRN IM DECREASED GLUCOSE; Start 02/09/19 at 11:00 Glucose (Glutose) 15 gm Q15M PRN BUCCAL DECREASED GLUCOSE; Start 02/09/19 at 11:00 Metoprolol Tartrate (Lopressor) 25 mg BID PO Last administered on 02/16/19at 08:38; Admin Dose 25 MG; Start 02/09/19 at 15:30 Acetaminophen (Tylenol Tab) 1,000 mg Q6H PRN PO MILD PAIN(1-3)OR ELEVATED TEMP; Start 02/09/19 at 15:30 Cholecalciferol (Vitamin D) 1,000 unit DAILY PO Last administered on 02/16/19at 08:38; Admin Dose 1,000 UNIT; Start 02/10/19 at 09:00 Acetaminophen/ Hydrocodone Bitart ([place] (5/325)) 1 tab Q6H PRN PO PAIN; Start 02/09/19 at 15:30 Meclizine HCl (Antivert) 25 mg Q6H PRN PO DIZZINESS; Start 02/09/19 at 16:00 Pantoprazole (Protonix Tab) 40 mg DAILY@0600 PO Last administered on 02/16/19at 05:35; Admin Dose 40 MG; Start 02/10/19 at 06:00 Atorvastatin Calcium (Lipitor) 20 mg HS PO Last administered on 02/15/19at 21:09; Admin Dose 20 MG; Start 02/09/19 at 21:00 Gabapentin (Neurontin) 300 mg QHS PO Last administered on 02/15/19at 21:09; Adm in Dose 300 MG; Start 02/13/19 at 21:00 Apixaban (Eliquis) 2.5 mg BID PO Last administered on 02/16/19at 08:38; Admin Dose 2.5 MG; Start 02/14/19 at 21:00 LISA ESTEVEZ Feb 16, 2019 18:45
[2019-02-16 20:00] VITALS: BP 100/61; PULSE 106; RESP 20
[2019-02-16] MEDS: ATORVASTATIN 20 MG TAB PO SCH (21:01)
[2019-02-16] MEDS: GABAPENTIN 300 MG CAP PO SCH (21:01)
--- NOTE | 2019-02-16 23:49 | CONS ---
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 The superficial wound culture grew stenotrothomonas, which is a probable contaminant. The deep intra-operative culture did not grow bacteria. - path report from the procedure on 02/11/19 was significant for: R 4th toe showing mostly necrotic bone with no evidence of osteomyelitis or malignancy and R 3rd toe showing acute osteomyelitis without e/o malignancy. - h/o diabetic ulcer and OM of R foot. MRI on 12/31/2018 showed mild bone marrow edema in R 4th toe proximal phalanx which could represent early OM or nonspecific stress reaction. Moderate soft tissue edema without evidence of abscess, suggesting cellulitis. The wound culture on 12/31/2018 grew Enterobacte r, Corynebacteria and Stenotrophomonas. culture on 02/10/2019 grew E. coli # cardiovascular - severe PAD - h/o R iliofemoral endarterectomy 01/18/2019 - h/o revascularization in the past - Atrial fib - HR stable - Mild , mild AR/MR, and mild-mod TR - ACD - HTN # endo, renal - T2DM - Hgb A1c 6.8% - CKD - VRE in urine culture on 02/09/19. Pt denies UTI Sx, a colonizer # other conditions - h/o mental status change, hallucinations during her admission between 01/09 and 02/08 suspected to be caused by levofloxacin (01/18/2019-01/20/2019). Pt's grandson informed 02/11/19 that her family thought gabapentin caused hallucination then. Pt's currently on gabapentin and her mental status appears intact. Therefore, we suspect levofloxacin caused MS change - bacteremia due to Staph spp on 02/08/2019 possible contaminant - allergy to PCN (erythroderma and generalized swelling) and levofloxacin (MS change as above) recommendations: - continue to monitor Pt off systemic antibiotics. Pt completed 6 week course of antibiotic(s) for her osteomyelitis Consultation Date/Type/Reason Admit Date/Time Feb 08, 2019 at 20:38 Initial Consult Date 02/10/19 Type of Consult ID Requesting Provider: GONZALEZ ANAYA MD Date/Time of Note DATE: 02/16/19 TIME: 23:49 24 HR Interval Summary Subjective hx not possible: other (Pt was asleep) Exam/Review of Systems Exam Vitals Vital Signs Date Temp Pulse Resp B/P (MAP) Pulse Ox O2 O2 Flow FiO2 Time Delivery Rate 02/16/19 2.0 20:00 02/16/19 97.9 106 20 100/61 99 Nasal 20:00 (74) Cannula Intake and Output 02/15/19 02/15/19 02/16/19 1515:00 23:00 07:00 IntakeIntake Total 750 ml 100 ml OutputOutput Total 4 ml BalanceBalance 746 ml 100 ml Constitutional: non-verbal (alseep), frail Psych: confusion Head: normocephalic, atraumatic Eyes: nl lids ENMT: nl external ears & nose, nl nasal mucosa & septum, mucosa pink and moist Neck: other (not swollen) Respiratory: diminished breath sounds Cardiovascular: regular rate and rhythm, nl pulses; No edema Gastrointestinal: No distended Musculoskeletal: other (R foot is dressed) Extremities: No edema Neurological: other (asleep) Skin: No rash or lesions Results Result Diagram: 02/16/1951802/16/19518 Results 24hrs Laboratory Tests Test 02/16/19 05:19 02/16/19 08:36 02/16/19 11:37 02/16/19 17:50 White Blood Count 8.4 Red Blood Count 3.11 L Hemoglobin 8.3 L Hematocrit 28.4 L Mean Corpuscular 91.3 Volume Mean Corpuscular 26.7 L Hemoglobin Mean Corpuscular 29.2 L Hemoglobin Concent Red Cell 14.6 H Distribution Width Platelet Count 375 Mean Platelet Volume 10.0 Immature 0.400 Granulocytes % Neutrophils % 69.8 Lymphocytes % 18.1 Monocytes % 8.0 Eosinophils % 3.2 Basophils % 0.5 Nucleated Red Blood 0.0 Cells % Immature 0.030 Granulocytes # Neutrophils # 5.9 Lymphocytes # 1.5 Monocytes # 0.7 Eosinophils # 0.3 Basophils # 0.0 Nucleated Red Blood 0.0 Cells # Sodium Level 135 Potassium Level 5.0 Chloride Level 102 Carbon Dioxide Level 30 Anion Gap 3 L Blood Urea Nitrogen 48 H Creatinine 1.21 H Est Glomerular Filtrat Rate mL/min Glucose Level 134 Calcium Level 8.1 L Bedside Glucose 149 149 110 Test 02/16/19 20:58 Bedside Glucose 240 H Medications Medication Current Medications Acetaminophen/ Hydrocodone Bitart ([place] (5/325)) 1 tab Q6H PRN PO MODERATE PAIN LEVEL 4-6 Last administered on 02/15/19at 16:39; Admin Dose 1 TAB; Start 02/08/19 at 23:00 Morphine Sulfate (morphine) 2 mg Q4H PRN IV SEVERE PAIN LEVEL 7-10; Start 02/08/19 at 23:00 Acetaminophen (Tylenol Tab) 650 mg Q6H PRN PO MILD PAIN(1-3)OR ELEVATED TEMP; Start 02/08/19 at 23:00 Insulin Aspart (Novolog Insulin Pen) NOVOLOG *MILD* ALGORITHM WITH MEALS BEDTIME SC Last administered on 02/16/19at 21:11; Admin Dose 2 UNIT; Start 02/09/19 at 08:00 Miscellaneous Information 1 ea NOTE XX ; Start 02/09/19 at 11:00 Glucose (Glutose) 15 gm Q15M PRN PO DECREASED GLUCOSE; Start 02/09/19 at 11:00 Glucose (Glutose) 22.5 gm Q15M PRN PO DECREASED GLUCOSE; Start 02/09/19 at 11:00 Dextrose (D50w Syringe) 25 ml Q15M PRN IV DECREASED GLUCOSE; Start 02/09/19 at 11:00 Dextrose (D50w Syringe) 50 ml Q15M PRN IV DECREASED GLUCOSE; Start 02/09/19 at 11:00 Glucagon (Glucagen) 1 mg Q15M PRN IM DECREASED GLUCOSE; Start 02/09/19 at 11:00 Glucose (Glutose) 15 gm Q15M PRN BUCCAL DECREASED GLUCOSE; Start 02/09/19 at 11:00 Metoprolol Tartrate (Lopressor) 25 mg BID PO Last administered on 02/16/19at 21:01; Admin Dose 25 MG; Start 02/09/19 at 15:30 Acetaminophen (Tylenol Tab) 1,000 mg Q6H PRN PO MILD PAIN(1-3)OR ELEVATED TEMP; Start 02/09/19 at 15:30 Cholecalciferol (Vitamin D) 1,000 unit DAILY PO Last administered on 02/16/19at 08:38; Admin Dose 1,000 UNIT; Start 02/10/19 at 09:00 Acetaminophen/ Hydrocodone Bitart ([place] (5/325)) 1 tab Q6H PRN PO PAIN; Start 02/09/19 at 15:30 Meclizine HCl (Antivert) 25 mg Q6H PRN PO DIZZINESS; Start 02/09/19 at 16:00 Pantoprazole (Protonix Tab) 40 mg DAILY@0600 PO Last administered on 02/16/19at 05:35; Admin Dose 40 MG; Start 02/10/19 at 06:00 Atorvastatin Calcium (Lipitor) 20 mg HS PO Last administered on 02/16/19at 21:01; Admin Dose 20 MG; Start 02/09/19 at 21:00 Gabapentin (Neurontin) 300 mg QHS PO Last administered on 02/16/19at 21:01; Admin Dose 300 MG; Start 02/13/19 at 21:00 Apixaban (Eliquis) 2.5 mg BID PO Last administered on 02/16/19at 21:01; Admin Dose 2.5 MG; Start 02/14/19 at 21:00 JAQUELINE HUNTER M.D. Feb 16, 2019 23:49
[2019-02-17] VITALS: BP 106/59; PULSE 89; RESP 20
[2019-02-17 04:22] VITALS: BP 105/57; PULSE 97; RESP 20
[2019-02-17] MEDS: PANTOPRAZOLE (EC) 40 MG TAB PO SCH (05:55)
[2019-02-17 07:50] VITALS: BP 138/98; PULSE 77; RESP 19
[2019-02-17] MEDS: INSULIN ASPART [NOVOLOG] 3 ML PEN SC SCH ×4 (08:00→20:41)
[2019-02-17] MEDS: METOPROLOL 25 MG TAB PO SCH ×2 (08:10→20:46)
[2019-02-17] MEDS: APIXABAN 5 MG TABLET PO SCH ×2 (08:10→20:36)
[2019-02-17] MEDS: CHOLECALCIFEROL 1,000 UNIT TAB PO SCH (08:10)
--- NOTE | 2019-02-17 11:34 | PN ---
Date/Time of Note Date/Time of Note DATE: 02/17/19 TIME: 11:33 Assessment/Plan VTE Prophylaxis Risk score (from Ns)>0 risk: 11 SCD applied (from [facility] [place]): No SCD contraindicated: other Pharmacological prophylaxis: LMWH Lines/Catheters IV C[facility]ter Type (from [facility] PICC Line Central line still needed: Yes Assessment/Plan Hospital Course -- Hyperkalemia- Potassium is 5.4 status post Kayexalate yesterday- resolved -Right foot diabetic foot ulcer with gangrene and osteomyelitis, status post debridement. Dr. Maynard is following and podiatry consultation. Continue antibiotics per ID. Dr. Mata is following in infection disease consultation. -Severe peripheral vascular disease with history of right ileal femoral endarterectomy on 01/18/[address] Allen. -Atrial fibrillation. Continue metoprolol, start Eliquis. Dr. Burrows is follo wing in cardiology consultation. -Hypertension -Acute kidney injury on chronic kidney disease. -Anemia of chronic disease -Type 2 diabetes mellitus - Glycemic control; BS stable Result Diagram: 02/16/1951802/16/19518 Results 24hrs Laboratory Tests Test 02/16/19 11:37 02/16/19 17:50 02/16/19 20:58 02/17/19 01:37 Bedside Glucose 149 110 240 H 117 Test 02/17/19 08:09 Bedside Glucose 83 Subjective 24 Hr Interval Summary Free Text/Dictation Patient has no complaints Exam/Review of Systems Exam Vitals Vital Signs Date Temp Pulse Resp B/P (MAP) Pulse Ox O2 O2 Flow FiO2 Time Delivery Rate 02/17/19 98.7 77 19 138/98 94 07:50 (111) 02/17/19 Nasal 04:22 Cannula 02/16/19 2.0 20:00 Intake and Output 02/16/19 02/16/19 02/17/19 1515:00 23:00 07:00 IntakeIntake Total 250 ml 150 ml 50 ml OutputOutput Total 2 ml 100 ml BalanceBalance 248 ml 150 ml -50 ml Constitutional: well developed Head: normocephalic, atraumatic Neck: supple Respiratory: diminished breath sounds Cardiovascular: regular rate and rhythm Gastrointestinal: soft, non-tender Extremities: normal pulses Results Results 24hrs Laboratory Tests Test 02/16/19 11:37 02/16/19 17:50 02/16/19 20:58 02/17/19 01:37 Bedside Glucose 149 110 240 H 117 Test 02/17/19 08:09 Bedside Glucose 83 Medications Medication Current Medications Acetaminophen/ Hydrocodone Bitart ([place] (5/325)) 1 tab Q6H PRN PO MODERATE PAIN LEVEL 4-6 Last administered on 02/15/19at 16:39; Admin Dose 1 TAB; Start 02/08/19 at 23:00 Morphine Sulfate (morphine) 2 mg Q4H PRN IV SEVERE PAIN LEVEL 7-10; Start 02/08/19 at 23:00 Acetaminophen (Tylenol Tab) 650 mg Q6H PRN PO MILD PAIN(1-3)OR ELEVATED TEMP; Start 02/08/19 at 23:00 Insulin Aspart (Novolog Insulin Pen) NOVOLOG *MILD* ALGORITHM WITH MEALS BEDTIME SC Last administered on 02/16/19at 21:11; Admin Dose 2 UNIT; Start 02/09/19 at 08:00 Miscellaneous Information 1 ea NOTE XX ; Start 02/09/19 at 11:00 Glucose (Glutose) 15 gm Q15M PRN PO DECREASED GLUCOSE; Start 02/09/19 at 11:00 Glucose (Glutose) 22.5 gm Q15M PRN PO DECREASED GLUCOSE; Start 02/09/19 at 11:00 Dextrose (D50w Syringe) 25 ml Q15M PRN IV DECREASED GLUCOSE; Start 02/09/19 at 11:00 Dextrose (D50w Syringe) 50 ml Q15M PRN IV DECREASED GLUCOSE; Start 02/09/19 at 11:00 Glucagon (Glucagen) 1 mg Q15M PRN IM DECREASED GLUCOSE; Start 02/09/19 at 11:00 Glucose (Glutose) 15 gm Q15M PRN BUCCAL DECREASED GLUCOSE; Start 02/09/19 at 11:00 Metoprolol Tartrate (Lopressor) 25 mg BID PO Last administered on 02/17/19at 08:10; Admin Dose 25 MG; Start 02/09/19 at 15:30 Acetaminophen (Tylenol Tab) 1,000 mg Q6H PRN PO MILD PAIN(1-3)OR ELEVATED TEMP; Start 02/09/19 at 15:30 Cholecalciferol (Vitamin D) 1,000 unit DAILY PO Last administered on 02/17/19at 08:10; Admin Dose 1,000 UNIT; Start 02/10/19 at 09:00 Acetaminophen/ Hydrocodone Bitart ([place] (5/325)) 1 tab Q6H PRN PO PAIN; Start 02/09/19 at 15:30 Meclizine HCl (Antivert) 25 mg Q6H PRN PO DIZZINESS; Start 02/09/19 at 16:00 Pantoprazole (Protonix Tab) 40 mg DAILY@0600 PO Last administered on 02/17/19at 05:55; Admin Dose 40 MG; Start 02/10/19 at 06:00 Atorvastatin Calcium (Lipitor) 20 mg HS PO Last administered on 02/16/19at 21:01; Admin Dose 20 MG; Start 02/09/19 at 21:00 Gabapentin (Neurontin) 300 mg QHS PO Last administered on 02/16/19at 21:01; Admin Dose 300 MG; Start 02/13/19 at 21:00 Apixaban (Eliquis) 2.5 mg BID PO Last administered on 02/17/19at 08:10; Admin Dose 2.5 MG; Start 02/14/19 at 21:00 SOFYA NOYOLA Feb 17, 2019 11:34
[2019-02-17 11:36] VITALS: BP 115/58; PULSE 76; RESP 19
--- NOTE | 2019-02-17 13:01 | CONS ---
Assessment/Plan Assessment/Plan Assessment/Plan (Daily) 1. acute kidney injury on CKD III due to ATN from sepsis and hypotension + prerenal azotemia 2. Acute hyperkalemia due to NATY- resolved 3. H/o PVD s/p Right femoral endarterectomy 4. H/o Chronic atrial fibrillation 5. H/o HTN with currently hypotension 6. Anemia of CKD 7. H/o DM II Plan: IV abx meropenem finishing today Renally dose all abx and monitor electrolytes BUN 48; ;Cr trended down to 1.2, K 5.0 - other electrolytes normal today UO - 128 ML + X 3 voids/24 hrs Metoprolol 25 mg BID Patient seen in collaboration wit Dr Giana jacobs. Plan of care dw staff Consultation Date/Type/Reason Admit Date/Time Feb 08, 2019 at 20:38 Initial Consult Date 02/10/19 Type of Consult nephrology Reason for Consultation NATY ON CKD Requesting Provider: GONZALEZ ANAYA MD Date/Time of Note DATE: 02/17/19 TIME: 13:00 24 HR Interval Summary Free Text/Dictation nad afebrile BUN/ Cr- 48/1.2 UO - 128 ML + X 3 voids/24 hrs RLE- DDI; denies any pain now; foot cradle noted family at bed side- Qs answered no new events overnight dw staff Constitutional: requiring O2 Detailed Summary Eyes: no complaints ENT: no complaints Respiratory: no complaints Cardiovascular: no complaints Gastrointestinal: no complaints Genitourinary: no complaints Musculoskeletal: restricted range of motion, other (RLE- DDI) Psychological: nl mood/affect Immunologic: no complaints Exam/Review of Systems Exam Vitals Vital Signs Date Temp Pulse Resp B/P (MAP) Pulse Ox O2 O2 Flow FiO2 Time Delivery Rate 02/17/19 97.4 76 19 115/58 99 11:36 (77) 02/17/19 2.0 08:00 02/17/19 Nasal 04:22 Cannula Intake and Output 02/16/19 02/16/19 02/17/19 1515:00 23:00 07:00 IntakeIntake Total 250 ml 150 ml 50 ml OutputOutput Total 2 ml 100 ml BalanceBalance 248 ml 150 ml -50 ml Constitutional: alert, well developed Psych: nl mood/affect Head: atraumatic Eyes: nl lids, nl sclera ENMT: nl external ears & nose Neck: non-tender Respiratory: clear to auscultation Cardiovascular: nl pulses, other (S1S2) Gastrointestinal: soft, non-tender Musculoskeletal: range of motion, other (RLE- DD1) Extremities: other (RLE- [place] noted; hard to feel pulses) Neurological: other (alert/responsive) Skin: other (no rash noted ) Results Result Diagram: 02/16/1951802/16/19518 Results 24hrs Laboratory Tests Test 02/16/19 17:50 02/16/19 20:58 02/17/19 01:37 02/17/19 08:09 Bedside Glucose 110 240 H 117 83 Test 02/17/19 11:40 Bedside Glucose 120 Medications Medication Current Medications Acetaminophen/ Hydrocodone Bitart ([place] (5/325)) 1 tab Q6H PRN PO MODERATE PAIN LEVEL 4-6 Last administered on 02/15/19at 16:39; Admin Dose 1 TAB; Start 02/08/19 at 23:00 Morphine Sulfate (morphine) 2 mg Q4H PRN IV SEVERE PAIN LEVEL 7-10; Start 02/08/19 at 23:00 Acetaminophen (Tylenol Tab) 650 mg Q6H PRN PO MILD PAIN(1-3)OR ELEVATED TEMP; Start 02/08/19 at 23:00 Insulin Aspart (Novolog Insulin Pen) NOVOLOG *MILD* ALGORITHM WITH MEALS BEDTIME SC Last administered on 02/16/19at 21:11; Admin Dose 2 UNIT; Start 02/09/19 at 08:00 Miscellaneous Information 1 ea NOTE XX ; Start 02/09/19 at 11:00 Glucose (Glutose) 15 gm Q15M PRN PO DECREASED GLUCOSE; Start 02/09/19 at 11:00 Glucose (Glutose) 22.5 gm Q15M PRN PO DECREASED GLUCOSE; Start 02/09/19 at 11:00 Dextrose (D50w Syringe) 25 ml Q15M PRN IV DECREASED GLUCOSE; Start 02/09/19 at 11:00 Dextrose (D50w Syringe) 50 ml Q15M PRN IV DECREASED GLUCOSE; Start 02/09/19 at 11:00 Glucagon (Glucagen) 1 mg Q15M PRN IM DECREASED GLUCOSE; Start 02/09/19 at 11:00 Glucose (Glutose) 15 gm Q15M PRN BUCCAL DECREASED GLUCOSE; Start 02/09/19 at 11 :00 Metoprolol Tartrate (Lopressor) 25 mg BID PO Last administered on 02/17/19 08:10; Admin Dose 25 MG; Start 02/09/19 at 15:30 Acetaminophen (Tylenol Tab) 1,000 mg Q6H PRN PO MILD PAIN(1-3)OR ELEVATED TEMP; Start 02/09/19 at 15:30 Cholecalciferol (Vitamin D) 1,000 unit DAILY PO Last administered on 02/17/19 08:10; Admin Dose 1,000 UNIT; Start 02/10/19 at 09:00 Acetaminophen/ Hydrocodone Bitart ([place] (5/325)) 1 tab Q6H PRN PO PAIN; Start 02/09/19 at 15:30 Meclizine HCl (Antivert) 25 mg Q6H PRN PO DIZZINESS; Start 02/09/19 at 16:00 Pantoprazole (Protonix Tab) 40 mg DAILY@0600 PO Last administered on 02/17/19at 05:55; Admin Dose 40 MG; Start 02/10/19 at 06:00 Atorvastatin Calcium (Lipitor) 20 mg HS PO Last administered on 02/16/19 21:01; Admin Dose 20 MG; Start 02/09/19 at 21:00 Gabapentin (Neurontin) 300 mg QHS PO Last administered on 02/16/19 21:01; Admin Dose 300 MG; Start 02/13/19 at 21:00 Apixaban (Eliquis) 2.5 mg BID PO Last administered on 02/17/19 08:10; Admin Dose 2.5 MG; Start 02/14/19 at 21:00 LISA ESTEVEZ Feb 17, 2019 13:01
[2019-02-17 15:37] VITALS: BP 124/72; PULSE 86; RESP 19
[2019-02-17 20:12] VITALS: BP 98/50; PULSE 95; RESP 16
[2019-02-17] MEDS: ATORVASTATIN 20 MG TAB PO SCH (20:36)
[2019-02-17] MEDS: GABAPENTIN 300 MG CAP PO SCH (20:36)
--- NOTE | 2019-02-17 22:23 | CONS ---
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 The superficial wound culture grew stenotrothomonas, which is a probable contaminant. The deep intra-operative culture did not grow bacteria. - path report from the procedure on 02/11/19 was significant for: R 4th toe showing mostly necrotic bone with no evidence of osteomyelitis or malignancy and R 3rd toe showing acute osteomyelitis without e/o malignancy. - h/o diabetic ulcer and OM of R foot. MRI on 12/31/2018 showed mild bone marrow edema in R 4th toe proximal phalanx which could represent early OM or nonspecific stress reaction. Moderate soft tissue edema without evidence of abscess, suggesting cellulitis. The wound culture on 12/31/2018 grew Enterobacte r, Corynebacteria and Stenotrophomonas. culture on 02/10/2019 grew E. coli # cardiovascular - severe PAD - h/o R iliofemoral endarterectomy 01/18/2019 - h/o revascularization in the past - Atrial fib - HR stable - Mild , mild AR/MR, and mild-mod TR - ACD - HTN # endo, renal - T2DM - Hgb A1c 6.8% - CKD - VRE in urine culture on 02/09/19. Pt denies UTI Sx, a colonizer # other conditions - h/o mental status change, hallucinations during her admission between 01/09 and 02/08 suspected to be caused by levofloxacin (01/18/2019-01/20/2019). Pt's grandson informed 02/11/19 that her family thought gabapentin caused hallucination then. Pt's currently on gabapentin and her mental status appears intact. Therefore, we suspect levofloxacin caused MS change - bacteremia due to Staph spp on 02/08/2019 possible contaminant - allergy to PCN (erythroderma and generalized swelling) and levofloxacin (MS change as above) recommendations: - continue to monitor Pt off systemic antibiotics. Pt completed 6 week course of antibiotic(s) for her osteomyelitis Consultation Date/Type/Reason Admit Date/Time Feb 08, 2019 at 20:38 Initial Consult Date 02/10/19 Type of Consult ID Requesting Provider: GONZALEZ ANAYA MD Date/Time of Note DATE: 02/17/19 TIME: 22:22 24 HR Interval Summary Subjective hx not possible: pt non-verbal (alseep) Exam/Review of Systems Exam Vitals Vital Signs Date Temp Pulse Resp B/P (MAP) Pulse Ox O2 O2 Flow FiO2 Time Delivery Rate 02/17/19 98.2 95 16 98/50 (66) 96 20:12 02/17/19 2.0 20:00 02/17/19 Nasal 04:22 Cannula Intake and Output 02/16/19 02/16/19 02/17/19 1515:00 23:00 07:00 IntakeIntake Total 250 ml 150 ml 50 ml OutputOutput Total 2 ml 100 ml BalanceBalance 248 ml 150 ml -50 ml Constitutional: non-verbal, frail (asleep) Psych: confusion (asleep) Head: normocephalic, atraumatic Eyes: nl lids ENMT: nl external ears & nose, nl nasal mucosa & septum Neck: other (not swollen) Respiratory: diminished breath sounds Cardiovascular: regular rate and rhythm, nl pulses; No edema Gastrointestinal: soft; No distended Musculoskeletal: other (R foot is dressed c/d/i); No swelling Extremities: No edema Neurological: other (asleep) Skin: No rash or lesions Results Result Diagram: 02/16/1951802/16/19518 Results 24hrs Laboratory Tests Test 02/17/19 01:37 02/17/19 08:09 02/17/19 11:40 02/17/19 17:01 Bedside Glucose 117 83 120 95 Test 02/17/19 20:32 Bedside Glucose 182 Medications Medication Current Medications Acetaminophen/ Hydrocodone Bitart ([place] (5/325)) 1 tab Q6H PRN PO MODERATE PAIN LEVEL 4-6 Last administered on 02/15/19at 16:39; Admin Dose 1 TAB; Start 02/08/19 at 23:00 Morphine Sulfate (morphine) 2 mg Q4H PRN IV SEVERE PAIN LEVEL 7-10; Start 02/08/19 at 23:00 Acetaminophen (Tylenol Tab) 650 mg Q6H PRN PO MILD PAIN(1-3)OR ELEVATED TEMP; Start 02/08/19 at 23:00 Insulin Aspart (Novolog Insulin Pen) NOVOLOG *MILD* ALGORITHM WITH MEALS BEDTIME SC Last administered on 02/17/19at 20:41; Admin Dose 1 UNIT; Start 02/09/19 at 08:00 Miscellaneous Information 1 ea NOTE XX ; Start 02/09/19 at 11:00 Glucose (Glutose) 15 gm Q15M PRN PO DECREASED GLUCOSE; Start 02/09/19 at 11:00 Glucose (Glutose) 22.5 gm Q15M PRN PO DECREASED GLUCOSE; Start 02/09/19 at 11:00 Dextrose (D50w Syringe) 25 ml Q15M PRN IV DECREASED GLUCOSE; Start 02/09/19 at 11:00 Dextrose (D50w Syringe) 50 ml Q15M PRN IV DECREASED GLUCOSE; Start 02/09/19 at 11:00 Glucagon (Glucagen) 1 mg Q15M PRN IM DECREASED GLUCOSE; Start 02/09/19 at 11:00 Glucose (Glutose) 15 gm Q15M PRN BUCCAL DECREASED GLUCOSE; Start 02/09/19 at 11:00 Metoprolol Tartrate (Lopressor) 25 mg BID PO Last administered on 02/17/19at 20:46; Admin Dose 25 MG; Start 02/09/19 at 15:30 Acetaminophen (Tylenol Tab) 1,000 mg Q6H PRN PO MILD PAIN(1-3)OR ELEVATED TEMP; Start 02/09/19 at 15:30 Cholecalciferol (Vitamin D) 1,000 unit DAILY PO Last administered on 02/17/19at 08:10; Admin Dose 1,000 UNIT; Start 02/10/19 at 09:00 Acetaminophen/ Hydrocodone Bitart ([place] (5/325)) 1 tab Q6H PRN PO PAIN; Start 02/09/19 at 15:30 Meclizine HCl (Antivert) 25 mg Q6H PRN PO DIZZINESS; Start 02/09/19 at 16:00 Pantoprazole (Protonix Tab) 40 mg DAILY@0600 PO Last administered on 02/17/19at 05:55; Admin Dose 40 MG; Start 02/10/19 at 06:00 Atorvastatin Calcium (Lipitor) 20 mg HS PO Last administered on 02/17/19at 20:36; Admin Dose 20 MG; Start 02/09/19 at 21:00 Gabapentin (Neurontin) 300 mg QHS PO Last administered on 02/17/19at 20:36; Admin Dose 300 MG; Start 02/13/19 at 21:00 Apixaban (Eliquis) 2.5 mg BID PO Last administered on 02/17/19at 20:36; Admin Dose 2.5 MG; Start 02/14/19 at 21:00 JAQUELINE HUNTER M.D. Feb 17, 2019 22:23
[2019-02-18 00:35] VITALS: BP 88/50; PULSE 87; RESP 18
[2019-02-18 04:06] VITALS: BP 90/62; PULSE 84; RESP 16
[2019-02-18] MEDS: PANTOPRAZOLE (EC) 40 MG TAB PO SCH (05:33)
[2019-02-18 07:25] VITALS: BP 95/54; PULSE 77; RESP 20
[2019-02-18] MEDS: INSULIN ASPART [NOVOLOG] 3 ML PEN SC SCH ×3 (08:00→17:39)
[2019-02-18] MEDS: CHOLECALCIFEROL 1,000 UNIT TAB PO SCH (08:36)
[2019-02-18] MEDS: APIXABAN 5 MG TABLET PO SCH (08:36)
[2019-02-18] MEDS: METOPROLOL 25 MG TAB PO SCH (08:37)
[2019-02-18 11:04] VITALS: BP 90/52; PULSE 70; RESP 19
--- NOTE | 2019-02-18 13:06 | PN ---
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 Dr. Maynard is following and podiatry consultation. Continue antibiotics per ID. Dr. Mata is following in infection disease consultation. -Severe peripheral vascular disease with history of right ileal femoral endarterectomy on 01/18/[address] Allen. -Atrial fibrillation. Continue metoprolol, start Eliquis. Dr. Burrows is follo wing in cardiology consultation. -Hypertension -Acute kidney injury on chronic kidney disease. -Anemia of chronic disease -Type 2 diabetes mellitus - Glycemic control; BS stable Result Diagram: 02/18/19 0508 02/18/19 0508 Results 24hrs Laboratory Tests Test 02/17/19 17:01 02/17/19 20:32 02/18/19 05:08 02/18/19 05:20 Bedside Glucose 95 182 95 White Blood Count 7.2 Red Blood Count 2.95 L Hemoglobin 8.0 L Hematocrit 27.1 L Mean Corpuscular 91.9 Volume Mean Corpuscular 27.1 L Hemoglobin Mean Corpuscular 29.5 L Hemoglobin Concent Red Cell 14.5 Distribution Width Platelet Count 362 Mean Platelet Volume 9.9 Immature 0.400 Granulocytes % Neutrophils % 49.0 Lymphocytes % 30.7 Monocytes % 11.0 Eosinophils % 7.8 H Basophils % 1.1 Nucleated Red Blood 0.0 Cells % Immature 0.030 Granulocytes # Neutrophils # 3.5 Lymphocytes # 2.2 Monocytes # 0.8 Eosinophils # 0.6 H Basophils # 0.1 Nucleated Red Blood 0.0 Cells # Sodium Level 136 Potassium Level 4.8 Chloride Level 102 Carbon Dioxide Level 33 H Anion Gap 1 L Blood Urea Nitrogen 36 #H Creatinine 1.18 H Est Glomerular Filtrat Rate mL/min Glucose Level 93 # Calcium Level 8.4 Test 02/18/19 08:34 02/18/19 12:23 Bedside Glucose 81 102 Subjective 24 Hr Interval Summary Free Text/Dictation Patient has no complaints Exam/Review of Systems Exam Vitals Vital Signs Date Temp Pulse Resp B/P (MAP) Pulse Ox O2 O2 Flow FiO2 Time Delivery Rate 02/18/19 97.9 70 19 90/52 (65) 97 Nasal 1.5 11:04 Cannula Intake and Output 02/17/19 02/17/19 02/18/19 1515:00 23:00 07:00 IntakeIntake Total 200 ml BalanceBalance 200 ml Constitutional: well developed Head: normocephalic, atraumatic Neck: supple Respiratory: clear to auscultation Cardiovascular: regular rate and rhythm Gastrointestinal: soft, non-tender Extremities: normal pulses Results Results 24hrs Laboratory Tests Test 02/17/19 17:01 02/17/19 20:32 02/18/19 05:08 02/18/19 05:20 Bedside Glucose 95 182 95 White Blood Count 7.2 Red Blood Count 2.95 L Hemoglobin 8.0 L Hematocrit 27.1 L Mean Corpuscular 91.9 Volume Mean Corpuscular 27.1 L Hemoglobin Mean Corpuscular 29.5 L Hemoglobin Concent Red Cell 14.5 Distribution Width Platelet Count 362 Mean Platelet Volume 9.9 Immature 0.400 Granulocytes % Neutrophils % 49.0 Lymphocytes % 30.7 Monocytes % 11.0 Eosinophils % 7.8 H Basophils % 1.1 Nucleated Red Blood 0.0 Cells % Immature 0.030 Granulocytes # Neutrophils # 3.5 Lymphocytes # 2.2 Monocytes # 0.8 Eosinophils # 0.6 H Basophils # 0.1 Nucleated Red Blood 0.0 Cells # Sodium Level 136 Potassium Level 4.8 Chloride Level 102 Carbon Dioxide Level 33 H Anion Gap 1 L Blood Urea Nitrogen 36 #H Creatinine 1.18 H Est Glomerular Filtrat Rate mL/min Glucose Level 93 # Calcium Level 8.4 Test 02/18/19 08:34 02/18/19 12:23 Bedside Glucose 81 102 Medications Medication Current Medications Acetaminophen/ Hydrocodone Bitart ([place] (5/325)) 1 tab Q6H PRN PO MODERATE PAIN LEVEL 4-6 Last administered on 02/15/19at 16:39; Admin Dose 1 TAB; Start 02/08/19 at 23:00 Morphine Sulfate (morphine) 2 mg Q4H PRN IV SEVERE PAIN LEVEL 7-10; Start 02/08/19 at 23:00 Acetaminophen (Tylenol Tab) 650 mg Q6H PRN PO MILD PAIN(1-3)OR ELEVATED TEMP; Start 02/08/19 at 23:00 Insulin Aspart (Novolog Insulin Pen) NOVOLOG *MILD* ALGORITHM WITH MEALS B EDTIME SC Last administered on 02/17/19at 20:41; Admin Dose 1 UNIT; Start 02/09/19 at 08:00 Miscellaneous Information 1 ea NOTE XX ; Start 02/09/19 at 11:00 Glucose (Glutose) 15 gm Q15M PRN PO DECREASED GLUCOSE; Start 02/09/19 at 11:00 Glucose (Glutose) 22.5 gm Q15M PRN PO DECREASED GLUCOSE; Start 02/09/19 at 11:00 Dextrose (D50w Syringe) 25 ml Q15M PRN IV DECREASED GLUCOSE; Start 02/09/19 at 11:00 Dextrose (D50w Syringe) 50 ml Q15M PRN IV DECREASED GLUCOSE; Start 02/09/19 at 11:00 Glucagon (Glucagen) 1 mg Q15M PRN IM DECREASED GLUCOSE; Start 02/09/19 at 11:00 Glucose (Glutose) 15 gm Q15M PRN BUCCAL DECREASED GLUCOSE; Start 02/09/19 at 11:00 Metoprolol Tartrate (Lopressor) 25 mg BID PO Last administered on 02/18/19at 08:37; Admin Dose 25 MG; Start 02/09/19 at 15:30 Acetaminophen (Tylenol Tab) 1,000 mg Q6H PRN PO MILD PAIN(1-3)OR ELEVATED TEMP; Start 02/09/19 at 15:30 Cholecalciferol (Vitamin D) 1,000 unit DAILY PO Last administered on 02/18/19at 08:36; Admin Dose 1,000 UNIT; Start 02/10/19 at 09:00 Acetaminophen/ Hydrocodone Bitart ([place] (5/325)) 1 tab Q6H PRN PO PAIN; Start 02/09/19 at 15:30 Meclizine HCl (Antivert) 25 mg Q6H PRN PO DIZZINESS; Start 02/09/19 at 16:00 Pantoprazole (Protonix Tab) 40 mg DAILY@0600 PO Last administered on 02/18/19at 05:33; Admin Dose 40 MG; Start 02/10/19 at 06:00 Atorvastatin Calcium (Lipitor) 20 mg HS PO Last administered on 02/17/19at 20:36; Admin Dose 20 MG; Start 02/09/19 at 21:00 Gabapentin (Neurontin) 300 mg QHS PO Last administered on 02/17/19at 20:36; Admin Dose 300 MG; Start 02/13/19 at 21:00 Apixaban (Eliquis) 2.5 mg BID PO Last administered on 02/18/19 08:36; Admin Dose 2.5 MG; Start 02/14/19 at 21:00 SOFYA NOYOLA Feb 18, 2019 13:06
--- NOTE | 2019-02-18 13:45 | CONS ---
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 The superficial wound culture grew stenotrothomonas, which is a probable contaminant. The deep intra-operative culture did not grow bacteria. - path report from the procedure on 02/11/19 was significant for: R 4th toe showing mostly necrotic bone with no evidence of osteomyelitis or malignancy and R 3rd toe showing acute osteomyelitis without e/o malignancy. - h/o diabetic ulcer and OM of R foot. MRI on 12/31/2018 showed mild bone marrow edema in R 4th toe proximal phalanx which could represent early OM or nonspecific stress reaction. Moderate soft tissue edema without evidence of abscess, suggesting cellulitis. The wound culture on 12/31/2018 grew Enterobacte r, Corynebacteria and Stenotrophomonas. culture on 02/10/2019 grew E. coli # cardiovascular - severe PAD - h/o R iliofemoral endarterectomy 01/18/2019 - h/o revascularization in the past - Atrial fib - HR stable - Mild , mild AR/MR, and mild-mod TR - ACD - HTN # endo, renal - T2DM - Hgb A1c 6.8% - CKD - VRE in urine culture on 02/09/19. Pt denies UTI Sx, a colonizer # other conditions - h/o mental status change, hallucinations during her admission between 01/09 and 02/08 suspected to be caused by levofloxacin (01/18/2019-01/20/2019). Pt's grandson informed 02/11/19 that her family thought gabapentin caused hallucination then. Pt's currently on gabapentin and her mental status appears intact. Therefore, we suspect levofloxacin caused MS change - bacteremia due to Staph spp on 02/08/2019 possible contaminant - allergy to PCN (erythroderma and generalized swelling) and levofloxacin (MS change as above) Recommendations: - continue to monitor Pt off systemic antibiotics. Pt completed 6 week course of antibiotic(s) for her osteomyelitis Management d/w pt's daughter at bedside, RHODA Sutherland, and with Dr. Rubalcava Consultation Date/Type/Reason Admit Date/Time Feb 08, 2019 at 20:38 Initial Consult Date 02/10/19 Type of Consult Infectious Disease Requesting Provider: GONZALEZ ANAYA MD Date/Time of Note DATE: 02/18/19 TIME: 13:38 24 HR Interval Summary Free Text/Dictation Remains afebrile, awaiting SNF placement, and no acute issues per d/w nursing. Denies pain, SOB, n/v/d. Daughter reports she is checking out a SNF today and another one tomorrow with her brother. Exam/Review of Systems Exam Vitals Vital Signs Date Temp Pulse Resp B/P (MAP) Pulse Ox O2 O2 Flow FiO2 Time Delivery Rate 02/18/19 97.9 70 19 90/52 (65) 97 Nasal 1.5 11:04 Cannula Intake and Output 02/17/19 02/17/19 02/18/19 1515:00 23:00 07:00 IntakeIntake Total 200 ml BalanceBalance 200 ml Constitutional: alert, oriented, well developed, frail Psych: no complaints Head: normocephalic, atraumatic Eyes: nl conjunctiva, nl lids, nl sclera ENMT: nl external ears & nose, nl nasal mucosa & septum, mucosa pink and moist Neck: supple Respiratory: clear to auscultation, normal air movement, other (On O2 at 1.5L via NC) Cardiovascular: nl pulses, irregular rhythm; No edema Gastrointestinal: soft, non-tender Musculoskeletal: other (R foot wrapped with Kerlix c/d/i) Extremities: No edema Neurological: nl speech (Setswana speaking) Skin: nl turgor; No rash or lesions Results Result Diagram: 02/18/19 0508 02/18/19 0508 Results 24hrs Laboratory Tests Test 02/17/19 17:01 02/17/19 20:32 02/18/19 05:08 02/18/19 05:20 Bedside Glucose 95 182 95 White Blood Count 7.2 Red Blood Count 2.95 L Hemoglobin 8.0 L Hematocrit 27.1 L Mean Corpuscular 91.9 Volume Mean Corpuscular 27.1 L Hemoglobin Mean Corpuscular 29.5 L Hemoglobin Concent Red Cell 14.5 Distribution Width Platelet Count 362 Mean Platelet Volume 9.9 Immature 0.400 Granulocytes % Neutrophils % 49.0 Lymphocytes % 30.7 Monocytes % 11.0 Eosinophils % 7.8 H Basophils % 1.1 Nucleated Red Blood 0.0 Cells % Immature 0.030 Granulocytes # Neutrophils # 3.5 Lymphocytes # 2.2 Monocytes # 0.8 Eosinophils # 0.6 H Basophils # 0.1 Nucleated Red Blood 0.0 Cells # Sodium Level 136 Potassium Level 4.8 Chloride Level 102 Carbon Dioxide Level 33 H Anion Gap 1 L Blood Urea Nitrogen 36 #H Creatinine 1.18 H Est Glomerular Filtrat Rate mL/min Glucose Level 93 # Calcium Level 8.4 Test 02/18/19 08:34 02/18/19 12:23 Bedside Glucose 81 102 Medications Medication Current Medications Acetaminophen/ Hydrocodone Bitart ([place] (5/325)) 1 tab Q6H PRN PO MODERATE PAIN LEVEL 4-6 Last administered on 02/15/19at 16:39; Admin Dose 1 TAB; Start 02/08/19 at 23:00 Morphine Sulfate (morphine) 2 mg Q4H PRN IV SEVERE PAIN LEVEL 7-10; Start 02/08/19 at 23:00 Acetaminophen (Tylenol Tab) 650 mg Q6H PRN PO MILD PAIN(1-3)OR ELEVATED TEMP; Start 02/08/19 at 23:00 Insulin Aspart (Novolog Insulin Pen) NOVOLOG *MILD* ALGORITHM WITH MEALS BEDTIME SC Last administered on 02/17/19at 20:41; Admin Dose 1 UNIT; Start 02/09/19 at 08:00 Miscellaneous Information 1 ea NOTE XX ; Start 02/09/19 at 11:00 Glucose (Glutose) 15 gm Q15M PRN PO DECREASED GLUCOSE; Start 02/09/19 at 11:00 Glucose (Glutose) 22.5 gm Q15M PRN PO DECREASED GLUCOSE; Start 02/09/19 at 11:00 Dextrose (D50w Syringe) 25 ml Q15M PRN IV DECREASED GLUCOSE; Start 02/09/19 at 11:00 Dextrose (D50w Syringe) 50 ml Q15M PRN IV DECREASED GLUCOSE; Start 02/09/19 at 11:00 Glucagon (Glucagen) 1 mg Q15M PRN IM DECREASED GLUCOSE; Start 02/09/19 at 11:00 Glucose (Glutose) 15 gm Q15M PRN BUCCAL DECREASED GLUCOSE; Start 02/09/19 at 11:00 Metoprolol Tartrate (Lopressor) 25 mg BID PO Last administered on 02/18/19 08:37; Admin Dose 25 MG; Start 02/09/19 at 15:30 Acetaminophen (Tylenol Tab) 1,000 mg Q6H PRN PO MILD PAIN(1-3)OR ELEVATED TEMP; Start 02/09/19 at 15:30 Cholecalciferol (Vitamin D) 1,000 unit DAILY PO Last administered on 02/18/19 08:36; Admin Dose 1,000 UNIT; Start 02/10/19 at 09:00 Acetaminophen/ Hydrocodone Bitart ([place] (5/325)) 1 tab Q6H PRN PO PAIN; Start 02/09/19 at 15:30 Meclizine HCl (Antivert) 25 mg Q6H PRN PO DIZZINESS; Start 02/09/19 at 16:00 Pantoprazole (Protonix Tab) 40 mg DAILY@0600 PO Last administered on 02/18/19 05:33; Admin Dose 40 MG; Start 02/10/19 at 06:00 Atorvastatin Calcium (Lipitor) 20 mg HS PO Last administered on 02/17/19 20:36; Admin Dose 20 MG; Start 02/09/19 at 21:00 Gabapentin (Neurontin) 300 mg QHS PO Last administered on 02/17/19 20:36; Admin Dose 300 MG; Start 02/13/19 at 21:00 Apixaban (Eliquis) 2.5 mg BID PO Last administered on 02/18/19 08:36; Admin Dose 2.5 MG; Start 02/14/19 at 21:00 MARTÍNEZ DUARTE NP Feb 18, 2019 13:45
[2019-02-18 15:20] VITALS: BP 109/53; PULSE 84; RESP 19
--- NOTE | 2019-02-18 17:21 | CONS ---
Assessment/Plan Assessment/Plan Assessment/Plan (Daily) 1. acute kidney injury on CKD III due to ATN from sepsis and hypotension + prerenal azotemia 2. Acute hyperkalemia due to NATY- resolved 3. H/o PVD s/p Right femoral endarterectomy 4. H/o Chronic atrial fibrillation 5. H/o HTN with currently hypotension 6. Anemia of CKD 7. H/o DM II Plan: IV abx meropenem finishing today Renally dose all abx and monitor electrolytes BUN 48; ;Cr trended down to 1.2, K 5.0 - other electrolytes normal today Metoprolol 25 mg BID ok to d/c will follow up Consultation Date/Type/Reason Admit Date/Time Feb 08, 2019 at 20:38 Initial Consult Date 02/10/19 Type of Consult NEPHROLOGY Requesting Provider: GONZALEZ ANAYA MD Date/Time of Note DATE: 02/18/19 TIME: 17:20 Exam/Review of Systems Exam Vitals Vital Signs Date Temp Pulse Resp B/P (MAP) Pulse Ox O2 O2 Flow FiO2 Time Delivery Rate 02/18/19 97.9 84 19 109/53 98 Nasal 1.5 15:20 (71) Cannula Intake and Output 02/17/19 02/17/19 02/18/19 1515:00 23:00 07:00 IntakeIntake Total 200 ml BalanceBalance 200 ml Results Result Diagram: 02/18/19 0508 02/18/19 0508 Results 24hrs Laboratory Tests Test 02/17/19 20:32 02/18/19 05:08 02/18/19 05:20 02/18/19 08:34 Bedside Glucose 182 95 81 White Blood Count 7.2 Red Blood Count 2.95 L Hemoglobin 8.0 L Hematocrit 27.1 L Mean Corpuscular 91.9 Volume Mean Corpuscular 27.1 L Hemoglobin Mean Corpuscular 29.5 L Hemoglobin Concent Red Cell 14.5 Distribution Width Platelet Count 362 Mean Platelet Volume 9.9 Immature 0.400 Granulocytes % Neutrophils % 49.0 Lymphocytes % 30.7 Monocytes % 11.0 Eosinophils % 7.8 H Basophils % 1.1 Nucleated Red Blood 0.0 Cells % Immature 0.030 Granulocytes # Neutrophils # 3.5 Lymphocytes # 2.2 Monocytes # 0.8 Eosinophils # 0.6 H Basophils # 0.1 Nucleated Red Blood 0.0 Cells # Sodium Level 136 Potassium Level 4.8 Chloride Level 102 Carbon Dioxide Level 33 H Anion Gap 1 L Blood Urea Nitrogen 36 #H Creatinine 1.18 H Est Glomerular Filtrat Rate mL/min Glucose Level 93 # Calcium Level 8.4 Test 02/18/19 12:23 Bedside Glucose 102 Medications Medication Current Medications Acetaminophen/ Hydrocodone Bitart ([place] (5/325)) 1 tab Q6H PRN PO MODERATE PAIN LEVEL 4-6 Last administered on 02/15/19at 16:39; Admin Dose 1 TAB; Start 02/08/19 at 23:00 Morphine Sulfate (morphine) 2 mg Q4H PRN IV SEVERE PAIN LEVEL 7-10; Start 02/08/19 at 23:00 Acetaminophen (Tylenol Tab) 650 mg Q6H PRN PO MILD PAIN(1-3)OR ELEVATED TEMP; Start 02/08/19 at 23:00 Insulin Aspart (Novolog Insulin Pen) NOVOLOG *MILD* ALGORITHM WITH MEALS BED TIME SC Last administered on 02/17/19at 20:41; Admin Dose 1 UNIT; Start 02/09/19 at 08:00 Miscellaneous Information 1 ea NOTE XX ; Start 02/09/19 at 11:00 Glucose (Glutose) 15 gm Q15M PRN PO DECREASED GLUCOSE; Start 02/09/19 at 11:00 Glucose (Glutose) 22.5 gm Q15M PRN PO DECREASED GLUCOSE; Start 02/09/19 at 11:00 Dextrose (D50w Syringe) 25 ml Q15M PRN IV DECREASED GLUCOSE; Start 02/09/19 at 11:00 Dextrose (D50w Syringe) 50 ml Q15M PRN IV DECREASED GLUCOSE; Start 02/09/19 at 11:00 Glucagon (Glucagen) 1 mg Q15M PRN IM DECREASED GLUCOSE; Start 02/09/19 at 11:00 Glucose (Glutose) 15 gm Q15M PRN BUCCAL DECREASED GLUCOSE; Start 02/09/19 at 11:00 Metoprolol Tartrate (Lopressor) 25 mg BID PO Last administered on 02/18/19at 08:37; Admin Dose 25 MG; Start 02/09/19 at 15:30 Acetaminophen (Tylenol Tab) 1,000 mg Q6H PRN PO MILD PAIN(1-3)OR ELEVATED TEMP; Start 02/09/19 at 15:30 Cholecalciferol (Vitamin D) 1,000 unit DAILY PO Last administered on 02/18/19 08:36; Admin Dose 1,000 UNIT; Start 02/10/19 at 09:00 Acetaminophen/ Hydrocodone Bitart ([place] (5/325)) 1 tab Q6H PRN PO PAIN; Start 02/09/19 at 15:30 Meclizine HCl (Antivert) 25 mg Q6H PRN PO DIZZINESS; Start 02/09/19 at 16:00 Pantoprazole (Protonix Tab) 40 mg DAILY@0600 PO Last administered on 02/18/19at 05:33; Admin Dose 40 MG; Start 02/10/19 at 06:00 Atorvastatin Calcium (Lipitor) 20 mg HS PO Last administered on 02/17/19at 2 0:36; Admin Dose 20 MG; Start 02/09/19 at 21:00 Gabapentin (Neurontin) 300 mg QHS PO Last administered on 02/17/19at 20:36; Admin Dose 300 MG; Start 02/13/19 at 21:00 Apixaban (Eliquis) 2.5 mg BID PO Last administered on 02/18/19 08:36; Admin Dose 2.5 MG; Start 02/14/19 at 21:00 NICOLLE TRAORE MD Feb 18, 2019 17:21
[2019-02-18 19:46] VITALS: BP 126/66; PULSE 92; RESP 18
--- NOTE | 2019-02-26 13:21 | DS ---
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 Dr. Maynard is following and podiatry consultation. Continue antibiotics per ID. Dr. Mata is following in infection disease consultation. -Severe peripheral vascular disease with history of right ileal femoral endarterectomy on 01/18/[address] Allen. -Atrial fibrillation. Continue metoprolol, start Eliquis. Dr. Burrows is following in cardiology consultation. -Hypertension -Acute kidney injury on chronic kidney disease. -Anemia of chronic disease -Type 2 diabetes mellitus - Glycemic control; BS stable Patient Condition: Fair Consults Infectious disease Podiatry Procedures debridement of leg wound Hx of Present Illness Patient with diabetes comes in with diabetic foot ulcer with evidence of osteomyelitis and gangrene. Hospital Course Patient with diabetes comes in with diabetic foot ulcer with evidence of osteomyelitis and gangrene. Patient was treated with antibiotics, podiatry was consulted for wound care. Patient was also seen by Dr. Burrows for atrical fibrillation. Patient was monitored for blood sugars with sliding scale. Once stable, patient was sent to assisted for further care. 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 Dr. Maynard is following and podiatry consultation. Continue antibiotics per ID. Dr. Mata is following in infection disease consultation. -Severe peripheral vascular disease with history of right ileal femoral endarterectomy on 01/18/[address] Allen. -Atrial fibrillation. Continue metoprolol, start Eliquis. Dr. Burrows is following in cardiology consultation. -Hypertension -Acute kidney injury on chronic kidney disease. -Anemia of chronic disease -Type 2 diabetes mellitus - Glycemic control; BS stable Home Meds Reported Medications Hydrocodone/Acetaminophen ([place] 5-325 Tablet) 1 Each Tablet, 1 EACH PO Q6 PRN for PAIN, TAB 01/18/19 Acetaminophen* (Acetaminophen*) 500 MG Extra Strength Tablet, 1000 MG PO Q6H PRN for PAIN AND OR ELEVATED TEMP, TAB 01/18/19 Gabapentin* (Gabapentin*) 300 Mg Capsule, 300 MG PO TID, #90 CAP 01/18/19 Cholecalciferol* (Vitamin D3*) 1,000 Unit Tablet, 1000 UNIT PO DAILY, TAB 01/18/19 Meclizine Hcl* (Meclizine Hcl*) 25 Mg Tablet, 25 MG PO Q6 PRN for DIZZINESS, TAB 01/18/19 Aspirin (Low Dose Aspirin) 81 Mg Tablet.dr, 81 MG PO DAILY, #30 TAB 01/18/19 Metoprolol Tartrate* (Lopressor*) 25 Mg Tab, 25 MG PO BID, #60 TAB 01/18/19 Pravastatin Sodium* (Pravastatin Sodium*) 20 Mg Tablet, 20 MG PO HS, TAB 01/18/19 Pantoprazole* (Protonix*) 40 Mg Tablet.dr, 40 MG PO DAILY, TAB 01/18/19 Alendronate Sodium* (Fosamax*) 70 Mg Tablet, 70 MG PO EVERY MONDAY, #4 TAB 01/18/19 Primary Care Provider [facility] Y Feb 26, 2019 13:21
== END 2019-02-18 20:35 | DRG 255 ==
LOC: E/R 15:44 → PP2 20:38 → 6WM 02-09 13:37
PROVIDERS: ADMIT Internal Medicine; ATTEND Internal Medicine
PROC: 0Y6V0Z0 Detachment at Right 4th Toe, Complete, Open Approach (ICD-10-PCS; 2019-02-11)
PROC: 0JBQ0ZZ Excision of Right Foot Subcutaneous Tissue and Fascia, Open Approach (ICD-10-PCS; 2019-02-11)
PROC: 0HRMXK3 Replacement of Right Foot Skin with Nonautologous Tissue Substitute, Full Thickness, External Approach (ICD-10-PCS; 2019-02-11)
PROC: 0Y6T0Z0 Detachment at Right 3rd Toe, Complete, Open Approach (ICD-10-PCS; principal; 2019-02-11 12:30)
DX: E11.52 Type 2 diabetes mellitus with diabetic peripheral angiopathy with gangrene (principal); N17.0 Acute kidney failure with tubular necrosis; L03.115 Cellulitis of right lower limb; M86.171 Other acute osteomyelitis, right ankle and foot; E11.69 Type 2 diabetes mellitus with other specified complication; E11.621 Type 2 diabetes mellitus with foot ulcer; B96.89 Other specified bacterial agents as the cause of diseases classified elsewhere; Z79.4 Long term (current) use of insulin; E11.22 Type 2 diabetes mellitus with diabetic chronic kidney disease; E11.65 Type 2 diabetes mellitus with hyperglycemia; N18.3 Chronic kidney disease, stage 3 (moderate); I48.2 Chronic atrial fibrillation; I95.9 Hypotension, unspecified; D63.1 Anemia in chronic kidney disease; E87.5 Hyperkalemia
CPT/HCPCS: 73630; 80048; 80053; 80061; 81001; 82150; 82728; 82962; 83036; 83540; 83605; 83690; 83735; 84100; 84145; 84484; 85025; 85610; 85651; 85730; 86140; 87070; 87081; 87086; 88305; 88311; 93005; 94664; 97163; 97530; J1335; J1815; J2185; J2370; J3010; J3370; J3475; J7030; J7040; J7120; Q4104-JC

== ENCOUNTER 2019-03-19 13:43 | Inpatient (IN) | payer OTHER ==
[~2019-03-19] VITALS: Ht 157.5 cm; Wt 68.0 kg
[2019-03-19] MEDS ORDERED: AZTREONAM 1 GM/NS (PMX) 50 ML IVPB STA (15:51)
[2019-03-19] MEDS ORDERED: ONDANSETRON 4 MG INJ IV STA (15:51)
[2019-03-19] MEDS ORDERED: morphine 4 MG/ML VIAL IV STA (15:51)
[2019-03-19] MEDS ORDERED: VANCOMYCIN 1 GM (PMX) 250 ML IVPB ONE (16:00)
[2019-03-19] MEDS ORDERED: SODIUM CHLORIDE 0.9% 1L BAG IV* STA (16:13)
[2019-03-19] MEDS ORDERED: ACETAMINOPHEN 325 MG TAB PO PRN ×2 (16:30→22:00)
[2019-03-19] MEDS ORDERED: ONDANSETRON 4 MG INJ IV PRN ×2 (16:30→22:00)
[2019-03-19 20:13] VITALS: BP 149/68; PULSE 87; RESP 17
[2019-03-19] MEDS ORDERED: ZOLPIDEM 5 MG TAB PO PRN (22:00)
[2019-03-19] MEDS ORDERED: DOCUSATE SODIUM 100 MG CAP PO PRN (22:00)
[2019-03-19] MEDS ORDERED: BISACODYL (EC) 5 MG TAB PO PRN (22:00)
[2019-03-19] MEDS ORDERED: MECLIZINE 25 MG TAB PO PRN (22:30)
[2019-03-19] MEDS: METOPROLOL 25 MG TAB PO SCH (22:31)
[2019-03-19] MEDS: INSULIN ASPART [NOVOLOG] 3 ML PEN SC SCH ×2 (22:47→23:03)
[2019-03-19] MEDS ORDERED: GLUCOSE GEL 15 GRAM TUBE BUCCAL PRN (23:00)
[2019-03-19] MEDS ORDERED: DEXTROSE 50% 50 ML SYRINGE IV PRN ×2 (23:00)
[2019-03-19] MEDS ORDERED: GLUCOSE GEL 15 GRAM TUBE PO PRN ×2 (23:00)
[2019-03-19] MEDS ORDERED: GLUCAGON 1 MG INJ IM PRN (23:00)
[2019-03-19 23:52] VITALS: Ht 157.5 cm; Wt 68.0 kg
[2019-03-20 01:40] VITALS: BP 137/62; PULSE 82; RESP 16
[2019-03-20] MEDS: ACCU-CHEK XX SCH ×5 (02:00→21:58)
[2019-03-20] MEDS: PANTOPRAZOLE (EC) 40 MG TAB PO SCH (06:44)
[2019-03-20 07:58] VITALS: BP 137/58; PULSE 74; RESP 16
[2019-03-20] MEDS: ASPIRIN (EC) 81 MG TAB PO SCH (08:50)
[2019-03-20] MEDS: CHOLECALCIFEROL 1,000 UNIT TAB PO SCH (08:50)
[2019-03-20] MEDS: GABAPENTIN 300 MG CAP PO SCH ×3 (08:50→21:56)
[2019-03-20] MEDS: METOPROLOL 25 MG TAB PO SCH ×2 (08:51→21:56)
[2019-03-20] MEDS: LINAGLIPTIN 5 MG TABLET PO SCH (08:51)
[2019-03-20] MEDS: INSULIN ASPART [NOVOLOG] 3 ML PEN SC SCH ×4 (08:54→21:00)
[2019-03-20] MEDS: REPAGLINIDE 1 MG TAB PO SCH ×3 (08:55→18:58)
[2019-03-20] MEDS ORDERED: ENOXAPARIN 30 MG/0.3 ML SYG SC SCH (09:00)
[2019-03-20] MEDS ORDERED: MAGNESIUM SULFATE 2 GM/50 ML 50 ML IVPB ONE (11:30)
[2019-03-20] MEDS: SOD CHLORIDE 0.9% 1,000 ML IV SCH (12:21)
[2019-03-20 15:17] VITALS: BP 128/56; PULSE 73; RESP 16
[2019-03-20] MEDS ORDERED: VANCOMYCIN IV PER PHARMACY XX SCH (16:30)
[2019-03-20] MEDS: VANCOMYCIN 750 MG (PMX) 250 ML IVPB SCH (18:57)
[2019-03-20 19:00] VITALS: BP 132/52; PULSE 81; RESP 17
[2019-03-20] MEDS: BALSAM PERU/CASTOR OIL 60 GM TUBE TOP SCH (21:00)
[2019-03-20] MEDS ORDERED: MEROPENEM 1 GM/50ML(PMX) 50 ML IVPB SCH (21:00)
[2019-03-20] MEDS ORDERED: NON-FORMULARY/PATIENT OWN MED (Pravastatin Sodium* 20 MG) PO SCH (21:00)
[2019-03-20] MEDS: MEROPENEM 500MG/50 ML (PMX) 50 ML IVPB SCH (21:53)
[2019-03-20] MEDS: ATORVASTATIN 10 MG TAB PO SCH (21:56)
[2019-03-21] VITALS (29 sets, daily range): BP systolic 104–137; BP diastolic 34–76; PULSE 74–116; RESP 16–26
[2019-03-21] MEDS: SOD CHLORIDE 0.9% 1,000 ML IV SCH ×2 (01:48→16:06)
[2019-03-21] MEDS: ACCU-CHEK XX SCH ×5 (02:00→22:21)
[2019-03-21] MEDS: PANTOPRAZOLE (EC) 40 MG TAB PO SCH (05:48)
[2019-03-21] MEDS: REPAGLINIDE 1 MG TAB PO SCH ×3 (07:00→17:30)
[2019-03-21] MEDS: INSULIN ASPART [NOVOLOG] 3 ML PEN SC SCH ×4 (08:00→22:20)
[2019-03-21] MEDS: LINAGLIPTIN 5 MG TABLET PO SCH (08:48)
[2019-03-21] MEDS: ASPIRIN (EC) 81 MG TAB PO SCH (08:48)
[2019-03-21] MEDS: METOPROLOL 25 MG TAB PO SCH ×2 (08:48→22:17)
[2019-03-21] MEDS: GABAPENTIN 300 MG CAP PO SCH ×3 (08:48→22:18)
[2019-03-21] MEDS: CHOLECALCIFEROL 1,000 UNIT TAB PO SCH (08:49)
[2019-03-21] MEDS: MEROPENEM 500MG/50 ML (PMX) 50 ML IVPB SCH ×2 (08:52→22:22)
[2019-03-21] MEDS: BALSAM PERU/CASTOR OIL 60 GM TUBE TOP SCH ×2 (09:00→22:22)
[2019-03-21] MEDS ORDERED: POLYMYXIN/BACITRACIN 1L IRRIG ONE (17:37)
[2019-03-21] MEDS ORDERED: MINERAL OIL LIGHT 10 ML VIAL ONE (18:03)
[2019-03-21] MEDS ORDERED: LIDOCAINE 1%/EPI 30 ML INJ ONE (18:04)
[2019-03-21] MEDS ORDERED: FENTAnyl 50 MCG/ML VIAL ONE (18:15)
[2019-03-21] MEDS ORDERED: MIDAZOLAM 1 MG/ML 2 ML INJ ONE (18:15)
[2019-03-21] MEDS ORDERED: LIDOCAINE 1% (MPF) 30 ML INJ ONE (18:20)
[2019-03-21] MEDS ORDERED: LIDOCAINE 2% (SDV) 5 ML INJ ONE (18:59)
[2019-03-21] MEDS ORDERED: ETOMIDATE 20 MG INJ ONE (18:59)
[2019-03-21] MEDS ORDERED: CEFAZOLIN 1 GM INJ ONE (18:59)
[2019-03-21] MEDS ORDERED: ZINC SULFATE 220 MG CAP PO ONE (19:30)
[2019-03-21] MEDS: VANCOMYCIN 750 MG (PMX) 250 ML IVPB SCH (22:04)
[2019-03-21] MEDS: ATORVASTATIN 10 MG TAB PO SCH (22:16)
[2019-03-22] MEDS: SOD CHLORIDE 0.9% 1,000 ML IV SCH ×2 (00:53→17:12)
[2019-03-22] MEDS: ACCU-CHEK XX SCH ×5 (02:00→20:14)
[2019-03-22 02:42] VITALS: BP 118/55; PULSE 82; RESP 18
[2019-03-22] MEDS: PANTOPRAZOLE (EC) 40 MG TAB PO SCH (06:23)
[2019-03-22] MEDS: INSULIN ASPART [NOVOLOG] 3 ML PEN SC SCH ×4 (08:00→20:12)
[2019-03-22 08:18] VITALS: BP 133/56; PULSE 80; RESP 18
[2019-03-22] MEDS: CHOLECALCIFEROL 1,000 UNIT TAB PO SCH (08:46)
[2019-03-22] MEDS: REPAGLINIDE 1 MG TAB PO SCH ×3 (08:46→17:13)
[2019-03-22] MEDS: BALSAM PERU/CASTOR OIL 60 GM TUBE TOP SCH ×2 (08:46→20:14)
[2019-03-22] MEDS: ASPIRIN (EC) 81 MG TAB PO SCH (08:47)
[2019-03-22] MEDS: ASCORBIC ACID 500 MG TAB PO SCH (08:47)
[2019-03-22] MEDS: METOPROLOL 25 MG TAB PO SCH ×2 (08:47→20:08)
[2019-03-22] MEDS: GABAPENTIN 300 MG CAP PO SCH ×3 (08:47→20:08)
[2019-03-22] MEDS: LINAGLIPTIN 5 MG TABLET PO SCH (08:48)
[2019-03-22] MEDS: MEROPENEM 500MG/50 ML (PMX) 50 ML IVPB SCH ×2 (08:48→21:51)
[2019-03-22 15:34] VITALS: BP 157/72; PULSE 92; RESP 18
[2019-03-22] MEDS: VANCOMYCIN 750 MG (PMX) 250 ML IVPB SCH (18:35)
[2019-03-22] MEDS: morphine 2 MG INJ IV PRN (19:58)
[2019-03-22] MEDS: ATORVASTATIN 10 MG TAB PO SCH (20:09)
[2019-03-22 20:42] VITALS: BP 142/65; PULSE 108; RESP 20
[2019-03-23 02:00] VITALS: BP 114/55; PULSE 79; RESP 18
[2019-03-23] MEDS: ACCU-CHEK XX SCH ×5 (02:00→21:00)
[2019-03-23] MEDS: PANTOPRAZOLE (EC) 40 MG TAB PO SCH (06:42)
[2019-03-23] MEDS: morphine 2 MG INJ IV PRN (06:51)
[2019-03-23 07:56] VITALS: BP 112/53; PULSE 74; RESP 20
[2019-03-23] MEDS: INSULIN ASPART [NOVOLOG] 3 ML PEN SC SCH ×4 (08:00→21:00)
[2019-03-23] MEDS: REPAGLINIDE 1 MG TAB PO SCH ×3 (09:59→17:36)
[2019-03-23] MEDS: GABAPENTIN 300 MG CAP PO SCH ×3 (10:00→21:52)
[2019-03-23] MEDS: ASPIRIN (EC) 81 MG TAB PO SCH (10:00)
[2019-03-23] MEDS: ASCORBIC ACID 500 MG TAB PO SCH (10:00)
[2019-03-23] MEDS: HYDROCODONE/APAP (5/325) TAB PO PRN (10:00)
[2019-03-23] MEDS: LINAGLIPTIN 5 MG TABLET PO SCH (10:00)
[2019-03-23] MEDS: METOPROLOL 25 MG TAB PO SCH ×2 (10:01→21:53)
[2019-03-23] MEDS: BALSAM PERU/CASTOR OIL 60 GM TUBE TOP SCH ×2 (10:03→22:10)
[2019-03-23] MEDS: CHOLECALCIFEROL 1,000 UNIT TAB PO SCH (10:05)
[2019-03-23] MEDS: MEROPENEM 500MG/50 ML (PMX) 50 ML IVPB SCH (10:05)
[2019-03-23] MEDS: ENOXAPARIN 30 MG/0.3 ML SYG SC SCH (10:17)
[2019-03-23] MEDS: SOD CHLORIDE 0.9% 1,000 ML IV SCH (13:28)
[2019-03-23 14:00] VITALS: BP 110/45; PULSE 58; RESP 18
[2019-03-23] MEDS: VANCOMYCIN 750 MG (PMX) 250 ML IVPB SCH (18:52)
[2019-03-23 20:00] VITALS: BP 116/50; PULSE 80; RESP 16
[2019-03-23] MEDS: ATORVASTATIN 10 MG TAB PO SCH (21:52)
[2019-03-23] MEDS: CEFEPIME HCL 0.5 GM in SOD CHLORIDE 0.9% 50 ML IV SCH (22:22)
[2019-03-23] MEDS: CITRIC ACID/NA CITRATE 30 ML CUP PO SCH (22:33)
[2019-03-24 02:00] VITALS: BP 124/57; PULSE 66; RESP 16
[2019-03-24] MEDS: ACCU-CHEK XX SCH ×5 (02:00→21:58)
[2019-03-24] MEDS: PANTOPRAZOLE (EC) 40 MG TAB PO SCH (06:22)
[2019-03-24 08:09] VITALS: BP 126/57; PULSE 75; RESP 18
[2019-03-24] MEDS: ASPIRIN (EC) 81 MG TAB PO SCH (09:15)
[2019-03-24] MEDS: CITRIC ACID/NA CITRATE 30 ML CUP PO SCH ×2 (09:15→21:43)
[2019-03-24] MEDS: REPAGLINIDE 1 MG TAB PO SCH ×3 (09:15→17:48)
[2019-03-24] MEDS: CHOLECALCIFEROL 1,000 UNIT TAB PO SCH (09:15)
[2019-03-24] MEDS: LINAGLIPTIN 5 MG TABLET PO SCH (09:16)
[2019-03-24] MEDS: ASCORBIC ACID 500 MG TAB PO SCH (09:16)
[2019-03-24] MEDS: GABAPENTIN 300 MG CAP PO SCH ×3 (09:16→21:43)
[2019-03-24] MEDS: METOPROLOL 25 MG TAB PO SCH ×2 (09:16→21:43)
[2019-03-24] MEDS: INSULIN ASPART [NOVOLOG] 3 ML PEN SC SCH ×4 (09:17→21:00)
[2019-03-24] MEDS: ENOXAPARIN 30 MG/0.3 ML SYG SC SCH (09:18)
[2019-03-24] MEDS: BALSAM PERU/CASTOR OIL 60 GM TUBE TOP SCH ×2 (11:38→21:45)
[2019-03-24 16:25] VITALS: BP 118/56; PULSE 77; RESP 20
[2019-03-24 20:00] VITALS: BP 155/63; PULSE 88; RESP 16
[2019-03-24] MEDS: CEFEPIME HCL 0.5 GM in SOD CHLORIDE 0.9% 50 ML IV SCH (21:34)
[2019-03-24] MEDS: ATORVASTATIN 10 MG TAB PO SCH (21:43)
[2019-03-25 02:00] VITALS: BP 143/64; PULSE 86; RESP 16
[2019-03-25] MEDS: ACCU-CHEK XX SCH ×5 (02:00→20:20)
[2019-03-25] MEDS: PANTOPRAZOLE (EC) 40 MG TAB PO SCH (05:38)
[2019-03-25] MEDS: REPAGLINIDE 1 MG TAB PO SCH ×3 (07:00→17:30)
[2019-03-25 07:56] VITALS: BP 90/49; PULSE 70; RESP 18
[2019-03-25] MEDS: INSULIN ASPART [NOVOLOG] 3 ML PEN SC SCH ×4 (08:00→20:20)
[2019-03-25] MEDS: METOPROLOL 25 MG TAB PO SCH ×2 (09:00→20:27)
[2019-03-25] MEDS: ASCORBIC ACID 500 MG TAB PO SCH (09:11)
[2019-03-25] MEDS: CHOLECALCIFEROL 1,000 UNIT TAB PO SCH (09:11)
[2019-03-25] MEDS: ASPIRIN (EC) 81 MG TAB PO SCH (09:12)
[2019-03-25] MEDS: CITRIC ACID/NA CITRATE 30 ML CUP PO SCH ×2 (09:12→20:12)
[2019-03-25] MEDS: LINAGLIPTIN 5 MG TABLET PO SCH (09:12)
[2019-03-25] MEDS: ENOXAPARIN 30 MG/0.3 ML SYG SC SCH (09:14)
[2019-03-25] MEDS: BALSAM PERU/CASTOR OIL 60 GM TUBE TOP SCH ×2 (09:15→20:20)
[2019-03-25] MEDS: GABAPENTIN 300 MG CAP PO SCH ×3 (09:20→20:12)
[2019-03-25 15:09] VITALS: BP 100/54; PULSE 91; RESP 20
[2019-03-25] MEDS: HYDROCODONE/APAP (5/325) TAB PO PRN (18:46)
[2019-03-25] MEDS: DEXTROSE 5%-0.45% NACL 1,000 ML IV SCH (20:12)
[2019-03-25] MEDS: CEFEPIME HCL 0.5 GM in SOD CHLORIDE 0.9% 50 ML IV SCH (20:12)
[2019-03-25] MEDS: ATORVASTATIN 10 MG TAB PO SCH (20:12)
[2019-03-25 20:15] VITALS: BP 114/66; PULSE 85; RESP 18
[2019-03-26 01:04] VITALS: BP 110/49; PULSE 63; RESP 17
[2019-03-26] MEDS: ACCU-CHEK XX SCH ×5 (02:00→21:05)
[2019-03-26] MEDS: PANTOPRAZOLE (EC) 40 MG TAB PO SCH (05:56)
[2019-03-26] MEDS: INSULIN ASPART [NOVOLOG] 3 ML PEN SC SCH ×4 (08:00→21:00)
[2019-03-26 08:17] VITALS: BP 95/56; PULSE 77; RESP 18
[2019-03-26] MEDS: METOPROLOL 25 MG TAB PO SCH ×2 (09:00→21:04)
[2019-03-26] MEDS: GABAPENTIN 300 MG CAP PO SCH ×3 (09:19→21:04)
[2019-03-26] MEDS: LINAGLIPTIN 5 MG TABLET PO SCH (09:20)
[2019-03-26] MEDS: CHOLECALCIFEROL 1,000 UNIT TAB PO SCH (09:20)
[2019-03-26] MEDS: REPAGLINIDE 1 MG TAB PO SCH ×2 (09:20→11:30)
[2019-03-26] MEDS: CITRIC ACID/NA CITRATE 30 ML CUP PO SCH ×2 (09:20→21:04)
[2019-03-26] MEDS: ASPIRIN (EC) 81 MG TAB PO SCH (09:20)
[2019-03-26] MEDS: ASCORBIC ACID 500 MG TAB PO SCH (09:20)
[2019-03-26] MEDS: BALSAM PERU/CASTOR OIL 60 GM TUBE TOP SCH ×2 (09:21→21:05)
[2019-03-26] MEDS: ENOXAPARIN 30 MG/0.3 ML SYG SC SCH (09:23)
[2019-03-26 13:54] VITALS: BP 95/55; PULSE 83; RESP 18
[2019-03-26] MEDS: DEXTROSE 5%-0.45% NACL 1,000 ML IV SCH ×2 (14:00→18:04)
[2019-03-26] MEDS: morphine 2 MG INJ IV PRN ×2 (14:53→19:39)
[2019-03-26 20:51] VITALS: BP 151/63; PULSE 85; RESP 18
[2019-03-26] MEDS: CEFEPIME HCL 0.5 GM in SOD CHLORIDE 0.9% 50 ML IV SCH (21:00)
[2019-03-26] MEDS: ATORVASTATIN 10 MG TAB PO SCH (21:04)
[2019-03-27] MEDS: ACCU-CHEK XX SCH ×5 (01:31→20:40)
[2019-03-27 02:22] VITALS: BP 140/62; PULSE 68; RESP 18
[2019-03-27] MEDS: PANTOPRAZOLE (EC) 40 MG TAB PO SCH (06:15)
[2019-03-27] MEDS: INSULIN ASPART [NOVOLOG] 3 ML PEN SC SCH ×4 (08:00→20:39)
[2019-03-27 08:18] VITALS: BP 109/54; PULSE 72; RESP 16
[2019-03-27] MEDS: CHOLECALCIFEROL 1,000 UNIT TAB PO SCH (09:12)
[2019-03-27] MEDS: ASCORBIC ACID 500 MG TAB PO SCH (09:13)
[2019-03-27] MEDS: ASPIRIN (EC) 81 MG TAB PO SCH (09:14)
[2019-03-27] MEDS: LINAGLIPTIN 5 MG TABLET PO SCH (09:15)
[2019-03-27] MEDS: GABAPENTIN 300 MG CAP PO SCH ×3 (09:15→20:35)
[2019-03-27] MEDS: METOPROLOL 25 MG TAB PO SCH ×2 (09:16→20:40)
[2019-03-27] MEDS: HYDROCODONE/APAP (5/325) TAB PO PRN (09:17)
[2019-03-27] MEDS: CITRIC ACID/NA CITRATE 30 ML CUP PO SCH ×2 (09:17→20:35)
[2019-03-27] MEDS: BALSAM PERU/CASTOR OIL 60 GM TUBE TOP SCH ×2 (09:18→20:39)
[2019-03-27] MEDS: ENOXAPARIN 30 MG/0.3 ML SYG SC SCH (09:32)
[2019-03-27] MEDS: DEXTROSE 5%-0.45% NACL 1,000 ML IV SCH ×2 (10:00→15:53)
[2019-03-27 13:54] VITALS: BP 95/52; PULSE 68; RESP 20
[2019-03-27 20:00] VITALS: BP 93/51; RESP 18
[2019-03-27] MEDS: CEFEPIME HCL 0.5 GM in SOD CHLORIDE 0.9% 50 ML IV SCH (20:34)
[2019-03-27] MEDS: ATORVASTATIN 10 MG TAB PO SCH (20:35)
[2019-03-28 02:00] VITALS: BP 123/58; PULSE 74; RESP 18
[2019-03-28] MEDS: ACCU-CHEK XX SCH ×4 (02:00→17:30)
[2019-03-28] MEDS: DEXTROSE 5%-0.45% NACL 1,000 ML IV SCH ×2 (06:00→15:04)
[2019-03-28] MEDS: PANTOPRAZOLE (EC) 40 MG TAB PO SCH (06:03)
[2019-03-28] MEDS: INSULIN ASPART [NOVOLOG] 3 ML PEN SC SCH ×3 (08:00→18:00)
[2019-03-28 08:09] VITALS: BP 92/53; PULSE 90; RESP 16
[2019-03-28] MEDS: CITRIC ACID/NA CITRATE 30 ML CUP PO SCH (08:47)
[2019-03-28] MEDS: GABAPENTIN 300 MG CAP PO SCH ×2 (08:47→13:00)
[2019-03-28] MEDS: ASCORBIC ACID 500 MG TAB PO SCH (08:47)
[2019-03-28] MEDS: METOPROLOL 25 MG TAB PO SCH (08:47)
[2019-03-28] MEDS: ASPIRIN (EC) 81 MG TAB PO SCH (08:47)
[2019-03-28] MEDS: LINAGLIPTIN 5 MG TABLET PO SCH (08:47)
[2019-03-28] MEDS: CHOLECALCIFEROL 1,000 UNIT TAB PO SCH (08:47)
[2019-03-28] MEDS: BALSAM PERU/CASTOR OIL 60 GM TUBE TOP SCH (08:48)
[2019-03-28] MEDS: ENOXAPARIN 30 MG/0.3 ML SYG SC SCH (08:52)
[2019-03-28 14:08] VITALS: BP 106/53; PULSE 83; RESP 17
[2019-03-28] MEDS: CEFEPIME HCL 0.5 GM in SOD CHLORIDE 0.9% 50 ML IV SCH (18:03)
[2019-03-28] MEDS: HYDROCODONE/APAP (5/325) TAB PO PRN (19:37)
== END 2019-03-28 20:10 | disposition home health service (06) | DRG 239 ==
LOC: E/R 13:43 → 2NE 16:22
PROVIDERS: ADMIT Internal Medicine; ATTEND Internal Medicine
PROC: 0Y6M0ZB Detachment at Right Foot, Partial 2nd Ray, Open Approach (ICD-10-PCS; 2019-03-21)
PROC: 0Y6M0ZC Detachment at Right Foot, Partial 3rd Ray, Open Approach (ICD-10-PCS; 2019-03-21)
PROC: 0Y6M0ZD Detachment at Right Foot, Partial 4th Ray, Open Approach (ICD-10-PCS; 2019-03-21)
PROC: 0Y6M0ZF Detachment at Right Foot, Partial 5th Ray, Open Approach (ICD-10-PCS; 2019-03-21)
PROC: 0JUQ0KZ Supplement of Right Foot Subcutaneous Tissue and Fascia with Nonautologous Tissue Substitute, Open Approach (ICD-10-PCS; 2019-03-21)
PROC: 0Y6M0Z9 Detachment at Right Foot, Partial 1st Ray, Open Approach (ICD-10-PCS; principal; 2019-03-21 19:30)
DX: E11.52 Type 2 diabetes mellitus with diabetic peripheral angiopathy with gangrene (principal); N17.0 Acute kidney failure with tubular necrosis; I96 Gangrene, not elsewhere classified; N39.0 Urinary tract infection, site not specified; E87.1 Hypo-osmolality and hyponatremia; I12.9 Hypertensive chronic kidney disease with stage 1 through stage 4 chronic kidney disease, or unspecified chronic kidney disease; E11.22 Type 2 diabetes mellitus with diabetic chronic kidney disease; N18.9 Chronic kidney disease, unspecified; Z66 Do not resuscitate; E11.621 Type 2 diabetes mellitus with foot ulcer
CPT/HCPCS: 36415; 36573; 71045; 73630; 80048; 80053; 80202; 81001; 82565; 82962; 83036; 83605; 83735; 84145; 84484; 84520; 85025; 85610; 85651; 85730; 87070; 87081; 87086; 88305; 93005; 97110; 97162; 97530; J0690; J0692; J1650; J1815; J2185; J2250; J2270; J2405; J3010; J3370; J3475; J7030; J7042